=== PATIENT | female | born 1945 | race Caucasian/White ===

== ENCOUNTER 2016-10-04 21:23 | Emergency (ER) | payer MEDICARE, OTHER ==
[2016-10-04 21:40] VITALS: BP 193/89; PULSE 89; RESP 18; TEMP 98.1
[2016-10-04] MEDS ORDERED: HYDROmorphone 1 MG/ML 1 ML SYRINGE IM STA (22:01)
--- NOTE | 2016-10-04 22:07 | ED ---
General Adult HPI - General Chief complaint: Fall Stated complaint: fall-hip/knee pain Time Seen by Provider: 10/04/16 21:51 Source: patient, RN notes reviewed Mode of arrival: wheelchair Limitations: no limitations - History of Present Illness Initial comments: 70-year-old female presents in the emergency department with a chief complaint of out of her pain medication. Patient had a fall about a week ago she went to the emergency room she was worked up and it was negative for any doctors. Patient has chronic oxycodone for her chronic back pain however now she is out of it due to her fall so she is here for medication refill until she sees her doctor on Friday. Patient states the pain has just been constant in her left knee and hip which is chronic pain aspects for her. Patient states that like her normal pain but without her pain medication is hard to bear. Patient has been able to ambulate with her cane. Patient denies any other injuries in the fall and states that she is very been worked up for the fall and she simply needs pain medication. Patient states she is not currently having any other symptoms at this time.Patient denies any recent fever, chills, shortness of breath, chest pain, back pain, abdominal pain, nausea vomiting, numbness or tingling, dysuria or hematuria, constipation or diarrhea, headaches or visual changes, or any other current symptoms. - Related Data Home Medications Medication Instructions Recorded Confirmed Atorvastatin [Lipitor] 20 mg PO HS 07/03/14 10/04/16 Captopril 50 mg PO BID 07/03/14 10/04/16 Furosemide 80 mg PO BID@0600,1200 07/03/14 10/04/16 Levothyroxine Sodium [Synthroid] 125 mcg PO DAILY 11/27/15 10/04/16 Methocarbamol [Robaxin] 750 mg PO Q12H 02/17/16 10/04/16 Metoprolol Succinate [Toprol XL] 50 mg PO DAILY 02/17/16 10/04/16 Verapamil HCl [Verapamil ER] 240 mg PO DAILY 02/17/16 10/04/16 Ferrous Sulfate [Iron (65 MG 325 mg PO DAILY 03/04/16 10/04/16 Elemental)] Gabapentin 800 mg PO Q8H 03/12/16 10/04/16 Ranitidine HCl [Zantac] 150 mg PO DAILY 03/12/16 10/04/16 Previous Rx's Medication Instructions Recorded Docusate [Colace] 100 mg PO BID cap 02/21/16 Polyethylene Glycol 3350 [Miralax] 17 gm PO DAILY PRN #0 powd.pack 02/21/16 Potassium Chloride ER [K-Dur 20] 20 meq PO DAILY tab.er.prt 03/08/16 Hydrocodone/Acetaminophen [[place]arlboro 1 each PO Q6HR PRN #20 tab 10/04/16 5-325] Allergies Allergy/AdvReac Type Severity Reaction Status Date / Time No Known Allergies Allergy Verified 02/17/16 11:35 Review of Systems ROS Statement: Those systems with pertinent positive or pertinent negative responses have been documented in the HPI. ROS Other: All systems not noted in ROS Statement are negative. Past Medical History Past Medical History: Coronary Artery Disease (CAD), Heart Failure, Diabetes Mellitus, Deep Vein Thrombosis (DVT), Hyperlipidemia, Hypertension, Thyroid Disorder Additional Past Medical History / Comment(s): neuropathy,lupus, back pain, CURRENTLY AT [facility], BACK WOUNDWOUND VAC, USES WALKER WHEN UP, WT DOWN 10# IN A MONTH, LT EYE CATARACT History of Any Multi-Drug Resistant Organisms: VRE Date of last positivie culture/infection: 04/01/16 MDRO Source:: back Past Surgical History: Appendectomy, Back Surgery, Breast Surgery, Cholecystectomy, Coronary Bypass/CABG Additional Past Surgical History / Comment(s): thyroidectomy. triple bypass 2000 Past Anesthesia/Blood Transfusion Reactions: No Reported Reaction Additional Past Anesthesia/Blood Transfusion Reaction / Comment(s): CLAUSTERPHOBIA. HAD A BLOOD TRANSFUSION 1968-NO REACTION. Past Psychological History: Depression Additional Psychological History / Comment(s): DENIES ANY THOUGHTS OF WANTING TO HARM SELF,NO SUICIDAL IDEATIONS STATED MILDLY DEPRESSED D/T ALL MEDICAL PROBLEMS AND HOSPITALIZATIONS. Smoking Status: Former smoker Past Alcohol Use History: None Reported Additional Past Alcohol Use History / Comment(s): STARTED SMOKING AT AGE 16 QUIT 2000 WAS SMOKING 3 PPD BY TIME SHE QUIT Past Drug Use History: None Reported - Past Family History Father Family Medical History: Cancer Additional Family Medical History / Comment(s): prostate cancer Mother Family Medical History: Cancer, Congestive Heart Failure (CHF), Diabetes Mellitus, Hyperlipidemia, Hypertension, Osteoarthritis (OA) Additional Family Medical History / Comment(s): colon cancer Brother(s) Family Medical History: Coronary Artery Disease (CAD), Deep Vein Thrombosis (DVT ) Additional Family Medical History / Comment(s): back surgery Sister(s) Family Medical History: Hyperlipidemia General Exam Limitations: no limitations General appearance: alert, in no apparent distress Neck exam: Present: normal inspection. Absent: tenderness, meningismus, lymphadenopathy Respiratory exam: Present: normal lung sounds bilaterally. Absent: respiratory distress, wheezes, rales, rhonchi, stridor Cardiovascular Exam: Present: regular rate, normal rhythm, normal heart sounds. Absent: systolic murmur, diastolic murmur, rubs, gallop, clicks Extremities exam: Present: normal inspection, full ROM, tenderness (Diffusely over the left knee and hip), normal capillary refill. Absent: pedal edema, joint swelling, calf tenderness Back exam: Present: normal inspection Neurological exam: Present: alert, oriented X3 Psychiatric exam: Present: normal affect, normal mood Skin exam: Present: warm, dry, intact, normal color. Absent: rash Course Vital Signs 10/04/16 21:36 Temperature 98.1 F Pulse Rate 89 Respiratory 18 Rate Blood Pressure 193/89 O2 Sat by Pulse 100 Oximetry Medical Decision Making - Medical Decision Making 70-year-old female presents emergency department with a chief complaint of chronic pain and needing medication refill. This time we will give the patient a short prescription for narcotics. We discussed follow-up with her Dr. rolando burnett. She is suffering from her chronic pain and his liver isn't the fall that she was worked up for. Patient's admission is and all questions were answered. They will be discharged home. Disposition Clinical Impression: Chronic pain Disposition: HOME SELF-CARE Condition: Stable Instructions: Chronic Pain (ED) Additional Instructions: Please use medication as discussed. Please follow up with family doctor if symptoms have not improved over the next two days. Please return to the emergency room if your symptoms increase or worsen or for any other concerns. Prescriptions: Hydrocodone/Acetaminophen [Marlboro 5-325] 1 each PO Q6HR PRN #20 tab PRN Reason: Pain Referrals: Virgil Hdz MD [Primary Care Provider] - 1-2 days Time of Disposition: 22:07
== END 2016-10-04 22:20 | disposition home or self-care (01) ==
LOC: EC 21:23
DX: G89.29 Other chronic pain (principal); M25.552 Pain in left hip; M25.562 Pain in left knee; E07.9 Disorder of thyroid, unspecified; E78.5 Hyperlipidemia, unspecified; I11.0 Hypertensive heart disease with heart failure; I50.9 Heart failure, unspecified; Z87.891 Personal history of nicotine dependence; Z79.899 Other long term (current) drug therapy
CPT/HCPCS: 99283; 96372; J1170

== ENCOUNTER 2016-12-10 08:20 | Day surgery (SDC) | payer MEDICARE, OTHER ==
[2016-12-03 17:40] VITALS: BMI 31.1
[~2016-12-10 08:20] MED LIST: LACTATED RINGERS 1,000 ML IV SCH; LIDOCAINE 1% 20 ML VIAL (10MG/ML) FOR IV START INTRADERMA PRN
[2016-12-10] MEDS: PHENYLEPHRINE 10% OPHTH DROPS 5 ML BTL OP ONE ×3 (09:24→09:37)
[2016-12-10] MEDS: CYCLOPENTOLATE 1% OPHTH SOLN 2 ML BTL OP ONE ×3 (09:26→09:39)
[2016-12-10] MEDS: FLURBIPROFEN 0.03% OPHTH DROPS 2.5 ML BTL OP ONE ×3 (09:28→09:41)
[2016-12-10 10:05] LABS: Glucose,Whole Blood 55 mg/dL (75-99)
[2016-12-10 10:09] VITALS: TEMP 97.3
[2016-12-10] MEDS ORDERED: fentaNYL (PF) 50 MCG/ML 2 ML AMP ONE (10:15)
[2016-12-10] MEDS ORDERED: PROPOFOL 10 MG/ML 20 ML VIAL IV ONE (10:15)
[2016-12-10] MEDS ORDERED: EPINEPHrine (PF) 0.5 ML in BALANCED SALT IRRIG SOLN COMB2 500 ML IRRIGATION ONE (10:16)
[2016-12-10] MEDS ORDERED: HYALURONATE SODIUM INTRAOCULAR 1 EACH SYRINGE (10MG/ML) INTRAOCULA ONE ×2 (10:18)
[2016-12-10] MEDS ORDERED: BALANCED SALT IRRIG SOLN COMB2 15 ML IRRIG.SOLN IRRIGATION ONE (10:18)
[2016-12-10] MEDS ORDERED: TRYPAN BLUE 0.06% SYRINGE 0.5 ML SYRINGE INTRAOCULA ONE (10:34)
[2016-12-10] MEDS ORDERED: ACETYLCHOLINE CHLORIDE 10 MG/ML 2 ML KIT INTRAOCULA ONE (10:58)
[2016-12-10 11:16] VITALS: RESP 16
--- NOTE | 2016-12-10 11:16 | P.OP ---
Date of Procedure: 12/10/16 Preoperative Diagnosis: Postoperative Diagnosis: Procedure(s) Performed: PREOPERATIVE DIAGNOSIS: Hypermature Cataract, left eye. POSTOPERATIVE DIAGNOSIS: Hypermature Cataract, left eye. OPERATION: Phacoemulsification cataract, left eye. DESCRIPTION OF PROCEDURE: The patient was taken to the preoperative holding area. Intravenous Propofol was given so as to bring about adequate sedation. The following mixture was given for local anesthesia: 5 mL of 2% lidocaine, 5 mL of 0.75% Marcaine, and 1 mL of Wydase. Approximately 4 mL was injected in the retrobulbar space of the surgical eye. Additional 1 mL was then directed to the temporal area of the surgical eye. This was performed to allow adequate neurological block of the facial muscles. The patient was revived and then taken into the operative room. The patient was prepped and draped in the usual sterile manner for the operative eye. A lid speculum was put into position. The conjunctiva was resected back from the limbus in the 12 o'clock position. Bleeding was controlled with electrocautery. A #69 blade was then used and a half-thickness scleral incision approximately 1-mm posterior to the limbus was made on bare sclera. This was shelved in the clear cornea using a crescent knife. Next a 15-degree blade was used to make a stab incision at the 3 o' clock position at the corneolimbal interface. Using a blunt cannula, air was injected into the anterior chamber from the side port incision. Methylene Blue dye was dripped onto the anterior lens capsule in order to better visualize it. Keratome blade was then used and the superior wound was extended into the anterior chamber. Viscoelastic was injected into the anterior chamber and to maintain its form. Next, a cystotome was used and a continuous anterior capsulotomy was made without difficulty. Hydrodissection using a blunt cannula and BSS was performed. Phaco probe was then employed and a groove extending from 12 to 6 o'clock in the lens was created. A Jace wand was used through the stab incision so as to perform a divide and conquer technique. During the course of phaco, a peripheral radial tear developed and extended around to the posterior capsule. Vitreous never entered the anterior chamber, however. Next a syringe and blunt cannula was utilized and any residual cortex was removed from the eye. Again, viscoelastic was injected into the anterior chamber. A B and L three piece assembled posterior chamber lens implant was placed in the cartridge and injected into the anterior chamber without difficulty. The Sinskey hook was utilized to spin the lens into position and this was again performed without any difficulty. Using the irrigation/ aspiration probe, any residual viscoelastic was removed from the eye. Miochol was instilled and the pupil moved down into position without any peaking. Additional BSS was injected into the limbal stab incision and the anterior chamber re-inflated. The conjunctiva was reapproximated using electrocautery. One drop of 0.25% Timoptic was placed over the corneal along with TobraDex ophthalmic ointment. Two sterile patches and a Roper eye shield were taped into position. The patient was transported to the recovery room in stable condition. Implants: Pathology: none sent Condition: stable Disposition: same day Indications for Procedure: Operative Findings: Description of Procedure:
[2016-12-10 11:28] VITALS: BP 123/65; PULSE 73
[2016-12-10] MEDS ORDERED: IBUPROFEN 200 MG TAB PO ONE (11:32)
[2016-12-10 11:33] LABS: Glucose,Whole Blood 53 mg/dL (75-99)
[2016-12-10 11:40] LABS: Glucose,Whole Blood 63 mg/dL (75-99)
[2016-12-10] MEDS ORDERED: GENTAMICIN/PREDNISOL AC OPHTH OINT 3.5GM OPHTHALMIC ONE (23:00)
[2016-12-10] MEDS ORDERED: TIMOLOL 0.5% OPHTH SOLN (PF) 0.2 ML DROPERETTE OP ONE (23:00)
[2016-12-10] MEDS ORDERED: BUPIVACAINE (PF) 0.75% 5 ML, LIDOCAINE 4% (PF) 5 ML, HYALURONIDASE, HUMAN RECOMB 150 UNIT MISCELLANE ONE ×3 (23:00)
== END 2016-12-10 12:14 | disposition home or self-care (01) ==
LOC: OR 08:20
PROVIDERS: ATTEND Ophthalmology
DX: H25.22 Age-related cataract, morgagnian type, left eye (principal); E11.9 Type 2 diabetes mellitus without complications; Z79.4 Long term (current) use of insulin; I10 Essential (primary) hypertension; E07.9 Disorder of thyroid, unspecified; M19.90 Unspecified osteoarthritis, unspecified site; I25.10 Atherosclerotic heart disease of native coronary artery without angina pectoris; Z87.891 Personal history of nicotine dependence; N17.9 Acute kidney failure, unspecified; Z95.1 Presence of aortocoronary bypass graft; Z79.899 Other long term (current) drug therapy
CPT/HCPCS: 66984; V2632; V2788; J2001; J3470; J0171; J3010; J2704

== ENCOUNTER 2017-02-04 06:47 | Day surgery (SDC) | payer MEDICARE, OTHER ==
[2017-01-31 11:52] VITALS: BMI 30.5
[~2017-02-04 06:47] MED LIST changes: +DEXAMETHASONE SOD PHOSPHATE 10 MG/ML 1 ML VIAL IV ONE; +HYDROmorphone 1 MG/ML 1 ML SYRINGE IVP PRN; +MIDAZOLAM 2 MG/2 ML VIAL IV PRN; +ONDANSETRON 4 MG/2 ML VIAL IVP ONE; +SCOPOLAMINE 1.5MG/72HR PATCH TRANSDERM ONE
[2017-02-04 07:23] VITALS: RESP 18; TEMP 98
[2017-02-04] MEDS: PHENYLEPHRINE 10% OPHTH DROPS 5 ML BTL OP ONE ×3 (07:28→07:54)
[2017-02-04] MEDS: KETOROLAC 0.5% OPHTH DROPS 3 ML BTL OP ONE ×3 (07:31→07:57)
[2017-02-04] MEDS: CYCLOPENTOLATE 1% OPHTH SOLN 2 ML BTL OP ONE ×3 (07:34→07:59)
[2017-02-04 07:48] LABS: Glucose,Whole Blood 154 mg/dL (75-99)
[2017-02-04] MEDS ORDERED: PROPOFOL 10 MG/ML 20 ML VIAL IV ONE (08:19)
[2017-02-04] MEDS ORDERED: fentaNYL (PF) 50 MCG/ML 2 ML AMP ONE (08:19)
[2017-02-04] MEDS ORDERED: MIDAZOLAM 2 MG/2 ML VIAL ONE (08:19)
[2017-02-04] MEDS ORDERED: BALANCED SALT IRRIG SOLN COMB2 15 ML IRRIG.SOLN INTRAOCULA ONE (08:29)
[2017-02-04] MEDS ORDERED: HYALURONATE SODIUM INTRAOCULAR 1 EACH SYRINGE (10MG/ML) INTRAOCULA ONE (08:29)
[2017-02-04] MEDS ORDERED: EPINEPHrine (PF) 0.5 ML in BALANCED SALT IRRIG SOLN COMB2 500 ML IRRIGATION ONE (08:30)
--- NOTE | 2017-02-04 08:45 | P.OP ---
Date of Procedure: 02/04/17 Procedure(s) Performed: PREOPERATIVE DIAGNOSIS: Cataract, right eye eye. POSTOPERATIVE DIAGNOSIS: Cataract, right eye. OPERATION: Phacoemulsification cataract, right eye. DESCRIPTION OF PROCEDURE: The patient was taken to the preoperative holding area. Intravenous Propofol was given so as to bring about adequate sedation. The following mixture was given for local anesthesia: 5 mL of 2% lidocaine, 5 mL of 0.75% Marcaine, and 1 mL of Wydase. Approximately 4 mL was injected in the retrobulbar space of the surgical eye. Additional 1 mL was then directed to the temporal area of the surgical eye. This was performed to allow adequate neurological block of the facial muscles. The patient was revived and then taken into the operative room. The patient was prepped and draped in the usual sterile manner for the operative eye. A lid speculum was put into position. The conjunctiva was resected back from the limbus in the 12 o'clock position. Bleeding was controlled with electrocautery. A #69 blade was then used and a half-thickness scleral incision approximately 1-mm posterior to the limbus was made on bare sclera. This was shelved in the clear cornea using a crescent knife. Next a 15-degree blade was used to make a stab incision at the 3 o' clock position at the corneolimbal interface. Keratome blade was then used and the superior wound was extended into the anterior chamber. Viscoelastic was injected into the anterior chamber and to maintain its form. Next, a cystotome was used and a continuous anterior capsulotomy was made without difficulty. Hydrodissection using a blunt cannula and BSS was performed. Phaco probe was then employed and a groove extending from 12 to 6 o'clock in the lens was created. A Jace wand was used through the stab incision so as to perform a divide and conquer technique. Next an irrigation aspiration probe was utilized and any residual cortex was removed from the eye. Again, viscoelastic was injected into the anterior chamber. An ISHAN ZCBOO posterior chamber lens implant was placed in the cartridge and injected into the anterior chamber without difficulty. The Sinskey hook was utilized to spin the lens into position and this was again performed without any difficulty. The irrigation and aspiration probe was again employed and any residual viscoelastic was removed from the eye. Then BSS was injected into the limbal stab incision and the anterior chamber re-inflated. The conjunctiva was reapproximated using electrocautery. One drop of 0.25% Timoptic was placed over the corneal along with TobraDex ophthalmic ointment. Two sterile patches and a Roper eye shield were taped into position. The patient was transported to the recovery room in stable condition. Pathology: none sent Condition: stable Disposition: same day
[2017-02-04 09:06] VITALS: BP 113/58; PULSE 92
[2017-02-04 09:07] LABS: Glucose,Whole Blood 138 mg/dL (75-99)
[2017-02-04] MEDS ORDERED: GENTAMICIN/PREDNISOL AC OPHTH OINT 3.5GM OPHTHALMIC ONE (23:00)
[2017-02-04] MEDS ORDERED: BUPIVACAINE (PF) 0.75% 5 ML, LIDOCAINE 4% (PF) 5 ML, HYALURONIDASE, HUMAN RECOMB 150 UNIT MISCELLANE ONE ×3 (23:00)
[2017-02-04] MEDS ORDERED: TIMOLOL 0.5% OPHTH SOLN (PF) 0.2 ML DROPERETTE OP ONE (23:00)
== END 2017-02-04 09:23 | disposition home or self-care (01) ==
LOC: OR 06:47
PROVIDERS: ATTEND Ophthalmology
DX: H26.9 Unspecified cataract (principal); E11.9 Type 2 diabetes mellitus without complications; I25.10 Atherosclerotic heart disease of native coronary artery without angina pectoris; I11.0 Hypertensive heart disease with heart failure; I50.9 Heart failure, unspecified; E07.9 Disorder of thyroid, unspecified; E78.5 Hyperlipidemia, unspecified; Z95.1 Presence of aortocoronary bypass graft; Z79.4 Long term (current) use of insulin; Z79.899 Other long term (current) drug therapy; Z87.891 Personal history of nicotine dependence
CPT/HCPCS: 84132; 66984; C1780; J2001; J2250; J3470; J0171; J3010; J2704

== ENCOUNTER 2017-02-18 19:01 | Emergency (ER) | payer MEDICARE, OTHER ==
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
[2017-02-18 20:14] LABS: Anisocytosis Slight; Basophils % (A) 0 %; CH 29.5; CHCM 29.4; Eosinophils # (A) 0.1 k/uL (0-0.7); Eosinophils % (A) 1 %; HCT 32.3 % (34.0-46.0); HDW 2.88; HGB 9.7 gm/dL (11.4-16.0); Hypochromasia Marked; Luc # (Auto) 0.12; Luc % (Auto) 3; Lymphocytes # (A) 0.8 k/uL (1.0-4.8); Lymphocytes % (A) 22 %; MCH 30.4 pg (25.0-35.0); MCHC 30.2 g/dL (31.0-37.0); MCV 100.8 fL (80.0-100.0); Macrocytosis Slight; Mean Platelet Volume 8.3; Monocytes # (A) 0.3 k/uL (0-1.0); Monocytes % (A) 8 %; Neutrophils # (A) 2.3 k/uL (1.3-7.7); Neutrophils % (A) 65 %; RDW 17.1 % (11.5-15.5); WBC 3.6 k/uL (3.8-10.6); WBC (Perox) 3.55
[2017-02-18 20:16] LABS: INR 1.2 (<1.2); Partial Thromboplastin Time 25.5 sec (22.0-30.0); Prothrombin Time 11.8 sec (9.0-12.0)
[2017-02-18 20:20] LABS: Anion Gap 9 mmol/L; Blood Urea Nitrogen 16 mg/dL (7-17); Calcium 8.7 mg/dL (8.4-10.2); Carbon Dioxide 28 mmol/L (22-30); Chloride 105 mmol/L (98-107); Glucose 119 mg/dL (74-99); Non-African American GFR(MDRD) 55 (>60 ml/min/1.73 sqM); Potassium 4.2 mmol/L (3.5-5.1); Sodium 142 mmol/L (137-145)
[2017-02-18 21:24] VITALS: BP 158/67; PULSE 88; RESP 20; TEMP 97.2
--- NOTE | 2017-02-18 21:49 | US ---
EXAMINATION TYPE: US venous doppler duplex LE BI DATE OF EXAM: 02/18/2017 9:22 PM COMPARISON: Right lower extremity venous ultrasound March 04, 2016. Left lower extremity venous ult rasound January 20, 2015 CLINICAL HISTORY: swelling. SIDE PERFORMED: Bilateral TECHNIQUE: The lower extremity deep venous system is examined utilizing real time linear array sonog johanna with graded compression, doppler sonography and color-flow sonography. VESSELS IMAGED: External Iliac Vein (EIV) Common Femoral Vein Deep Femoral Vein Greater Saphenous Vein * Femoral Vein Popliteal Vein Small Saphenous Vein * Proximal Calf Veins (* superficial vessels) Right Leg: Negative for DVT Left Leg: Negative for DVT Grayscale, color doppler, spectral doppler imaging performed of the deep veins of the bilateral lower extremities. There is normal flow, compressibility, vascular waveforms. IMPRESSION: No ultrasound evidence for acute DVT in either lower extremity currently.
== END 2017-02-18 21:31 | disposition home or self-care (01) ==
LOC: EC 19:01
DX: L03.115 Cellulitis of right lower limb (principal); L03.116 Cellulitis of left lower limb; R60.0 Localized edema; I25.10 Atherosclerotic heart disease of native coronary artery without angina pectoris; E11.9 Type 2 diabetes mellitus without complications; E78.5 Hyperlipidemia, unspecified; E07.9 Disorder of thyroid, unspecified; I11.0 Hypertensive heart disease with heart failure; I50.9 Heart failure, unspecified; Z86.718 Personal history of other venous thrombosis and embolism; Z87.891 Personal history of nicotine dependence; Z79.4 Long term (current) use of insulin; Z79.891 Long term (current) use of opiate analgesic; Z79.899 Other long term (current) drug therapy
CPT/HCPCS: 36415; 80048; 85025; 85610; 85730; 93970; 99284

== ENCOUNTER 2018-01-20 18:22 | Emergency (ER) | payer MEDICARE, OTHER ==
[2018-01-20 19:13] LABS: Albumin 3.6 g/dL (3.5-5.0); Calcium 8.9 mg/dL (8.4-10.2); Potassium 4.4 mmol/L (3.5-5.1); Total Bilirubin 0.5 mg/dL (0.2-1.3); Total Protein 6.7 g/dL (6.3-8.2)
[2018-01-20 19:29] LABS: Anisocytosis Slight; HCT 27.9 % (34.0-46.0); HGB 9.2 gm/dL (11.4-16.0); Hypochromasia Slight; MCH 27.7 pg (25.0-35.0); MCHC 32.8 g/dL (31.0-37.0); MCV 84.6 fL (80.0-100.0); Mean Platelet Volume 7.3; Platelet Count 186 k/uL (150-450); WBC 3.7 k/uL (3.8-10.6)
[2018-01-20 20:09] VITALS: PULSE 60; RESP 18
[2018-01-20 20:09] LABS: Band Neutrophils % 1 %; Lymphocytes # (M) 0.96 k/uL (1.0-4.8); Monocytes # (M) 0.19 k/uL (0-1.0); Neutrophils % (M) 68 %; Nucleated Red Blood Cells 0 /100 WBC (0-0); Poikilocytosis (M) Present; Target Cells Present; Total Cells Counted 100
--- NOTE | 2018-01-20 20:20 | ED ---
Extremity Problem HPI - General Chief complaint: Extremity Problem,Nontraumatic Stated complaint: POSS CELLULITIS BOTH LEGS Time Seen by Provider: 01/20/18 19:24 Source: patient Mode of arrival: wheelchair Limitations: no limitations - History of Present Illness Initial comments: 72-year-old female patient presents to the emergency department today for evaluation of lower leg swelling and erythema. Patient states that she has had increasing pain and redness to the lower extremities for the last week. Patient states she has been chilled but has not had any fevers. Patient states she does have a history of cellulitis and does get it frequently to the lower legs. Patient states she has been taking her Percocet without much relief of her pain. Patient recently returned to [place] after being in [place]. Patient was discharged from a hospital in [place] one month ago after being admitted for cellulitis. Patient denies any new numbness or tingling to her lower extremities, states she does have neuropathy related to her diabetes. Patient denies any recent shortness breath, chest pain, palpitations, abdominal pain, nausea, vomiting, diarrhea, constipation, back pain, dizziness, weakness, hematuria, dysuria, urinary urgency, urinary frequency, headache, visual changes , or any other complaints. - Related Data Home Medications Medication Instructions Recorded Confirmed Levothyroxine Sodium [Synthroid] 125 mcg PO QAM 11/27/15 01/20/18 Insulin NPL/Insulin Lispro 5 unit SQ TID PRN 12/03/16 01/20/18 [humaLOG MIX 75-25 VIAL] Bumetanide [Bumex] 1 mg PO BID 01/20/18 01/20/18 Spironolactone [Aldactone] 25 mg PO DAILY 01/20/18 01/20/18 oxyCODONE-APAP 10-325MG [Percocet 1 tab PO Q6HR PRN 01/20/18 01/20/18 10-325 mg] Previous Rx's Medication Instructions Recorded Cephalexin [Keflex] 500 mg PO Q6H #40 cap 01/20/18 Allergies Allergy/AdvReac Type Severity Reaction Status Date / Time No Known Allergies Allergy Verified 01/20/18 19:46 Review of Systems ROS Statement: Those systems with pertinent positive or pertinent negative responses have been documented in the HPI. ROS Other: All systems not noted in ROS Statement are negative. Past Medical History Past Medical History: Coronary Artery Disease (CAD), Heart Failure, Diabetes Mellitus, Deep Vein Thrombosis (DVT), Hyperlipidemia, Hypertension, Renal Disease, Thyroid Disorder Additional Past Medical History / Comment(s): neuropathy,lupus, back pain, BACK WOUND-Healed, USES CANE , CATARACT RT EYES History of Any Multi-Drug Resistant Organisms: VRE Date of last positivie culture/infection: 04/01/16 MDRO Source:: back Past Surgical History: Appendectomy, Back Surgery, Breast Surgery, Cholecystectomy, Coronary Bypass/CABG, Pacemaker Additional Past Surgical History / Comment(s): thyroidectomy. triple bypass 2000 , CATARACT LT EYE 11/2016, LUE dialysis port Past Anesthesia/Blood Transfusion Reactions: No Reported Reaction Additional Past Anesthesia/Blood Transfusion Reaction / Comment(s): CLAUSTROPHOBIA. HAD A BLOOD TRANSFUSION 1968-NO REACTION. Past Psychological History: No Psychological Hx Reported Smoking Status: Former smoker Past Alcohol Use History: None Reported Past Drug Use History: None Reported - Past Family History Father Family Medical History: Cancer Additional Family Medical History / Comment(s): prostate cancer Mother Family Medical History: Cancer, Congestive Heart Failure (CHF), Diabetes Mellitus, Hyperlipidemia, Hypertension, Osteoarthritis (OA) Additional Family Medical History / Comment(s): colon cancer Brother(s) Family Medical History: Coronary Artery Disease (CAD), Deep Vein Thrombosis (DVT ) Additional Family Medical History / Comment(s): back surgery Sister(s) Family Medical History: Hyperlipidemia General Exam Limitations: no limitations General appearance: alert, in no apparent distress, other (This is a well- developed, obese adult female patient in no acute distress. Vital signs upon presentation are temperature 99.2F, pulse 70, respirations 20, blood pressure 134/49, pulse ox 97% on room air.) Eye exam: Present: normal appearance, PERRL, EOMI. Absent: scleral icterus, conjunctival injection, periorbital swelling ENT exam: Present: normal exam, normal oropharynx, mucous membranes moist Respiratory exam: Present: normal lung sounds bilaterally. Absent: respiratory distress, wheezes, rales, rhonchi, stridor Cardiovascular Exam: Present: regular rate, normal rhythm, normal heart sounds. Absent: systolic murmur, diastolic murmur, rubs, gallop, clicks Extremities exam: Present: full ROM, normal capillary refill, other (Bilateral lower leg swelling, nonpitting. There is some anterior erythema over the lower leg. Is not circumferential. Does not extend down to the feet. Skin is warm to touch.). Absent: normal inspection, tenderness, pedal edema, joint swelling , calf tenderness Neurological exam: Present: alert, oriented X3, CN II-XII intact Psychiatric exam: Present: normal affect, normal mood Skin exam: Present: warm, dry, intact, normal color. Absent: rash Course Vital Signs 01/20/18 01/20/18 01/20/18 18:32 20:05 21:44 Temperature 99.0 F 98.7 F Pulse Rate 70 60 60 Respiratory 20 18 18 Rate Blood Pressure 134/49 171/69 183/67 O2 Sat by Pulse 97 99 98 Oximetry Medical Decision Making - Medical Decision Making 72-year-old female patient presents the emergency department today for evaluation of lower extremity redness and swelling. Patient has had history of cellulitis and is concerned she may have it again. Physical examination did reveal bilateral lower leg nonpitting edema with dorsal erythema. Skin was warm to touch. Patient is neurovascularly intact. Did perform labs which were unremarkable. I did discuss findings and results with the patient. Patient does have history of DVT to the lower extremities, does take Coumadin and states that her recent INR was supratherapeutic so they had her cut her dose in half. I did add on PT/INR however patient refused to remain for results stating that her daughter had to get to work. I did discuss that if her level was low we would need to perform ultrasound rule out blood clot in the leg. Patient verbalizes understanding however still wanted to leave. She was given prescription of Keflex for cellulitis. She is instructed to follow-up with her primary care physician for recheck as soon as possible. Return parameters discussed in detail. She verbalizes understanding and agreed with this plan. - Lab Data Result diagrams: 01/20/18 18:50 01/20/18 18:50 Lab Results 01/20/18 01/20/18 01/20/18 Range/Units 18:50 18:50 20:30 WBC 3.7 L (3.8-10.6) k/uL RBC 3.30 L (3.80-5.40) m/uL Hgb 9.2 L (11.4-16.0) gm/dL Hct 27.9 L (34.0-46.0) % MCV 84.6 (80.0-100.0) fL MCH 27.7 (25.0-35.0) pg MCHC 32.8 (31.0-37.0) g/dL RDW 18.0 H (11.5-15.5) % Plt Count 186 (150-450) k/uL Neutrophils % (Manual) 68 % Band Neutrophils % 1 % Lymphocytes % (Manual) 26 % Monocytes % (Manual) 5 % Neutrophils # (Manual) 2.50 (1.3-7.7) k/uL Lymphocytes # (Manual) 0.96 L (1.0-4.8) k/uL Monocytes # (Manual) 0.19 (0-1.0) k/uL Nucleated RBCs 0 (0-0) /100 WBC Manual Slide Review Performed Hypochromasia Slight Poikilocytosis (manual Present Anisocytosis Slight Target Cells Present PT 11.2 (9.0-12.0) sec INR 1.2 H (<1.2) APTT 25.6 (22.0-30.0) sec Sodium 131 L (137-145) mmol/L Potassium 4.4 (3.5-5.1) mmol/L Chloride 98 (98-107) mmol/L Carbon Dioxide 22 (22-30) mmol/L Anion Gap 11 mmol/L BUN 27 H (7-17) mg/dL Creatinine 0.92 (0.52-1.04) mg/dL Est GFR (CKD-EPI)AfAm 71 (>60 ml/min/1.73 sqM) Est GFR (CKD-EPI)NonAf 62 (>60 ml/min/1.73 sqM) Glucose 150 H (74-99) mg/dL Calcium 8.9 (8.4-10.2) mg/dL Total Bilirubin 0.5 (0.2-1.3) mg/dL AST 30 (14-36) U/L ALT 27 (9-52) U/L Alkaline Phosphatase 78 (38-126) U/L Total Protein 6.7 (6.3-8.2) g/dL Albumin 3.6 (3.5-5.0) g/dL Disposition Clinical Impression: Cellulitis of lower extremity Disposition: HOME SELF-CARE Condition: Good Instructions: Cellulitis (ED) Additional Instructions: Complete and tabetic prescription in full. Follow-up with your primary care physician for recheck in 1-2 days. Return here immediately for any new, worsening, or concerning symptoms. Prescriptions: Cephalexin [Keflex] 500 mg PO Q6H #40 cap Is patient prescribed a controlled substance at d/c from ED?: No Referrals: Virgil Hdz MD [Primary Care Provider] - 1-2 days Time of Disposition: 21:35
[2018-01-20] MEDS ORDERED: MORPHINE SULFATE 4 MG/ML SYRINGE IM STA (20:52)
[2018-01-20] MEDS ORDERED: CEPHALEXIN 500MG STARTER PACK 4 CAP BTL PO STA (20:52)
[2018-01-20 21:45] VITALS: BP 183/67; TEMP 98.7
[2018-01-20 21:45] LABS: INR 1.2 (<1.2); Partial Thromboplastin Time 25.6 sec (22.0-30.0); Prothrombin Time 11.2 sec (9.0-12.0)
== END 2018-01-20 21:45 | disposition home or self-care (01) ==
LOC: EC 18:22
DX: L03.115 Cellulitis of right lower limb (principal); L03.116 Cellulitis of left lower limb; I25.10 Atherosclerotic heart disease of native coronary artery without angina pectoris; E11.40 Type 2 diabetes mellitus with diabetic neuropathy, unspecified; I11.0 Hypertensive heart disease with heart failure; I50.9 Heart failure, unspecified; Z79.4 Long term (current) use of insulin; Z79.899 Other long term (current) drug therapy; Z86.718 Personal history of other venous thrombosis and embolism; Z87.891 Personal history of nicotine dependence; Z95.1 Presence of aortocoronary bypass graft; Z95.0 Presence of cardiac pacemaker
CPT/HCPCS: 36415; 80053; 85025; 85610; 85730; 87040; 99283; 96372; J2270

== ENCOUNTER 2018-01-21 17:17 | Emergency (ER) | payer MEDICARE, OTHER ==
[2018-01-21 18:37] VITALS: BP 155/58; PULSE 60; TEMP 97.8
--- NOTE | 2018-01-21 19:27 | ED ---
Lower Extremity Injury HPI - General Chief Complaint: Extremity Injury, Lower Stated Complaint: poss blood clot Time Seen by Provider: 01/21/18 19:01 Source: patient Mode of arrival: wheelchair Limitations: no limitations - History of Present Illness Initial Comments: 72-year-old female patient presents to the emergency department today for evaluation of bilateral lower leg edema and erythema. Patient was seen and evaluated here yesterday and diagnosed with cellulitis however was called to return today due to a low INR level. Patient does have history of DVT and refused to wait for the INR level prior to leaving. Patient did travel back to [place] from [place] via car one month ago. Patient states that she has had increased redness and swelling to the legs over the last week. Patient denies any fevers or chills with this. She denies any numbness or tingling to the lower extremities. Patient has had cellulitis in the past and states symptoms are similar. She denies any chest pain, shortness of breath, or palpitations. Patient denies any recent rash, abdominal pain, nausea, vomiting, diarrhea, constipation, back pain, numbness, tingling, dizziness, weakness, hematuria, dysuria, urinary urgency, urinary frequency, headache, visual changes, or any other complaints. - Related Data Home Medications Medication Instructions Recorded Confirmed Levothyroxine Sodium [Synthroid] 125 mcg PO QAM 11/27/15 01/21/18 Insulin NPL/Insulin Lispro See Protocol SQ TID 12/03/16 01/21/18 [humaLOG MIX 75-25 VIAL] Bumetanide [Bumex] 1 mg PO BID 01/20/18 01/21/18 Spironolactone [Aldactone] 25 mg PO DAILY 01/20/18 01/21/18 oxyCODONE-APAP 10-325MG [Percocet 1 tab PO Q6HR PRN 01/20/18 01/21/18 10-325 mg] Insulin NPL/Insulin Lispro 5 unit SQ AC-TID 01/21/18 01/21/18 [humaLOG MIX 75-25 VIAL] Previous Rx's Medication Instructions Recorded Cephalexin [Keflex] 500 mg PO Q6H #40 cap 01/20/18 Allergies Allergy/AdvReac Type Severity Reaction Status Date / Time No Known Allergies Allergy Verified 01/20/18 19:46 Review of Systems ROS Statement: Those systems with pertinent positive or pertinent negative responses have been documented in the HPI. ROS Other: All systems not noted in ROS Statement are negative. Past Medical History Past Medical History: Coronary Artery Disease (CAD), Heart Failure, Diabetes Mellitus, Deep Vein Thrombosis (DVT), Hyperlipidemia, Hypertension, Renal Disease, Thyroid Disorder Additional Past Medical History / Comment(s): neuropathy,lupus, back pain, BACK WOUND-Healed, USES CANE , CATARACT RT EYES History of Any Multi-Drug Resistant Organisms: VRE Date of last positivie culture/infection: 04/01/16 MDRO Source:: back Past Surgical History: Appendectomy, Back Surgery, Breast Surgery, Cholecystectomy, Coronary Bypass/CABG, Pacemaker Additional Past Surgical History / Comment(s): thyroidectomy. triple bypass 2000 , CATARACT LT EYE 11/2016, LUE dialysis port Past Anesthesia/Blood Transfusion Reactions: No Reported Reaction Additional Past Anesthesia/Blood Transfusion Reaction / Comment(s): CLAUSTROPHOBIA. HAD A BLOOD TRANSFUSION 1968-NO REACTION. Past Psychological History: No Psychological Hx Reported Smoking Status: Former smoker Past Alcohol Use History: None Reported Past Drug Use History: None Reported - Past Family History Father Family Medical History: Cancer Additional Family Medical History / Comment(s): prostate cancer Mother Family Medical History: Cancer, Congestive Heart Failure (CHF), Diabetes Mellitus, Hyperlipidemia, Hypertension, Osteoarthritis (OA) Additional Family Medical History / Comment(s): colon cancer Brother(s) Family Medical History: Coronary Artery Disease (CAD), Deep Vein Thrombosis (DVT ) Additional Family Medical History / Comment(s): back surgery Sister(s) Family Medical History: Hyperlipidemia General Exam Limitations: no limitations General appearance: alert, in no apparent distress, other (This is a well- developed, well-nourished elderly female patient in no acute distress. Vital signs upon presentation are temperature 97.8, pulse 60, respirations 18, blood pressure 155/58, pulse ox 100% on room air.) Eye exam: Present: normal appearance, PERRL, EOMI. Absent: scleral icterus, conjunctival injection, periorbital swelling ENT exam: Present: normal exam, normal oropharynx, mucous membranes moist Respiratory exam: Present: normal lung sounds bilaterally. Absent: respiratory distress, wheezes, rales, rhonchi, stridor Cardiovascular Exam: Present: regular rate, normal rhythm, normal heart sounds. Absent: systolic murmur, diastolic murmur, rubs, gallop, clicks GI/Abdominal exam: Present: soft, normal bowel sounds. Absent: distended, tenderness, guarding, rebound, rigid Extremities exam: Present: full ROM, normal capillary refill, other (Patient has some lower leg edema, nonpitting. There is dorsal erythema noted. No blistering or weeping. Pedal and posttibial pulses are 2+ and equal bilaterally.). Absent: normal inspection, tenderness, pedal edema, joint swelling, calf tenderness Neurological exam: Present: alert, oriented X3, CN II-XII intact Psychiatric exam: Present: normal affect, normal mood Skin exam: Present: warm, dry, intact, normal color. Absent: rash Course Vital Signs 01/21/18 18:34 Temperature 97.8 F Pulse Rate 60 Respiratory 18 Rate Blood Pressure 155/58 O2 Sat by Pulse 100 Oximetry Medical Decision Making - Medical Decision Making 72-year-old female patient presented to the emergency department today for ultrasound to rule out DVT to her lower extremities. Physical examination revealed erythema to the dorsal aspect of the bilateral lower legs with some nonpitting edema. Ultrasound was obtained and showed negative for DVT. Patient is instructed to call her doctor and have them direct her Coumadin dosing. She is also instructed to have a follow-up appointment for recheck of her legs in 1-2 days. Return parameters discussed in detail. She verbalizes understanding and agree with this plan. - Radiology Data Radiology results: report reviewed Venous Doppler duplex of the bilateral lower trauma is was obtained. Report was reviewed in its entirety. Impression by Dr. Fitzgerald shows normal exam with no evidence of deep venous thrombosis of both legs. Disposition Clinical Impression: Cellulitis of lower extremity Disposition: HOME SELF-CARE Condition: Good Instructions: Cellulitis (ED) Additional Instructions: Call your doctor and inform him that your INR is 1.2. Complete antibiotic prescription in full. Return here immediately for any new, worsening, or concerning symptoms. Is patient prescribed a controlled substance at d/c from ED?: No Referrals: Virgil Hdz MD [Primary Care Provider] - 1-2 days Time of Disposition: 20:23
[2018-01-21] MEDS ORDERED: MORPHINE SULFATE 4 MG/ML SYRINGE IM STA (19:40)
--- NOTE | 2018-01-21 20:13 | US ---
EXAMINATION TYPE: US venous doppler duplex LE DATE OF EXAM: 01/21/2018 8:06 PM COMPARISON: NONE CLINICAL HISTORY: Pain. SIDE PERFORMED: TECHNIQUE: The lower extremity deep venous system is examined utilizing real time linear array sonog johanna with graded compression, doppler sonography and color-flow sonography. VESSELS IMAGED: External Iliac Vein (EIV) Common Femoral Vein Deep Femoral Vein Greater Saphenous Vein * Femoral Vein Popliteal Vein Small Saphenous Vein * Proximal Calf Veins (* superficial vessels) Right Leg: Left Leg: IMPRESSION: Normal exam. No evidence of deep venous thrombosis in both legs.
[2018-01-21 21:12] VITALS: RESP 16
== END 2018-01-21 21:12 | disposition home or self-care (01) ==
LOC: EC 17:17
DX: L03.116 Cellulitis of left lower limb (principal); L03.115 Cellulitis of right lower limb; I25.810 Atherosclerosis of coronary artery bypass graft(s) without angina pectoris; I11.0 Hypertensive heart disease with heart failure; I50.9 Heart failure, unspecified; E11.40 Type 2 diabetes mellitus with diabetic neuropathy, unspecified; Z79.4 Long term (current) use of insulin; Z79.899 Other long term (current) drug therapy; Z87.891 Personal history of nicotine dependence; Z86.718 Personal history of other venous thrombosis and embolism; Z95.1 Presence of aortocoronary bypass graft; Z95.0 Presence of cardiac pacemaker
CPT/HCPCS: 93970; 99283; 96372; J2270

== ENCOUNTER 2018-02-02 20:18 | Emergency (ER) | payer MEDICARE, OTHER ==
[2018-02-02] MEDS ORDERED: VANCOMYCIN 2,000 MG in SODIUM CHLORIDE 0.9% 500 ML IVPB STA (21:09)
--- NOTE | 2018-02-02 21:12 | ED ---
General Adult HPI - General Chief complaint: Extremity Problem,Nontraumatic Stated complaint: leg swelling/cellulitis & SOB Source: family Mode of arrival: wheelchair Limitations: no limitations - History of Present Illness Initial comments: Dictation was produced using [employer] dictation software. please excuse any grammatical, word or spelling errors. Chief Complaint: 72-year-old female past medical history of cellulitis , coronary artery disease, heart failure, hypertension, thyroid disease presents with bilateral lower extremity erythema and pain. History of Present Illness: Since today with 4 days of bilateral lower extremity erythema and pain. Patient states she's been diagnosed with cellulitis in the past. She states that her most recent cellulitis episode was while she was in [place] several years ago. She states that over the past 4 days it has been getting progressively worse. She states she's been antibiotics however it has not been helping. Denies any constitutional symptoms. Chart review shows that patient has a history of heart failure though patient denies it. She does have a history of dysrhythmia and pacemaker. Denies any constitutional symptoms. The ROS documented in this emergency department record has been reviewed and confirmed by me. Those systems with pertinent positive or negative responses have been documented in the HPI. All other systems are other negative and/or noncontributory. - Related Data Home Medications Medication Instructions Recorded Confirmed Levothyroxine Sodium [Synthroid] 125 mcg PO HS 11/27/15 02/02/18 Insulin NPL/Insulin Lispro See Protocol SQ TID 12/03/16 02/02/18 [humaLOG MIX 75-25 VIAL] Bumetanide [Bumex] 1 mg PO BID 01/20/18 02/02/18 Spironolactone [Aldactone] 25 mg PO DAILY@1200 01/20/18 02/02/18 Amoxic-Pot Clav 875-125Mg 1 tab PO BID 02/02/18 02/02/18 [Augmentin 875-125] Morphine Sulfate ER [Ms Contin] 30 mg PO HS 02/02/18 02/02/18 Warfarin [Coumadin] 5 mg PO DAILY 02/02/18 02/02/18 oxyCODONE HCL 10 mg PO QID 02/02/18 02/02/18 Previous Rx's Medication Instructions Recorded Clindamycin [Cleocin] 450 mg PO Q8H 10 Days #90 capsule 02/02/18 Allergies Allergy/AdvReac Type Severity Reaction Status Date / Time No Known Allergies Allergy Verified 02/02/18 21:30 Review of Systems ROS Statement: Those systems with pertinent positive or pertinent negative responses have been documented in the HPI. ROS Other: All systems not noted in ROS Statement are negative. Past Medical History Past Medical History: Coronary Artery Disease (CAD), Heart Failure, Diabetes Mellitus, Deep Vein Thrombosis (DVT), Hyperlipidemia, Hypertension, Renal Disease, Thyroid Disorder Additional Past Medical History / Comment(s): neuropathy,lupus, back pain, BACK WOUND-Healed, USES CANE , CATARACT RT EYES History of Any Multi-Drug Resistant Organisms: VRE Date of last positivie culture/infection: 04/01/16 MDRO Source:: back Past Surgical History: Appendectomy, Back Surgery, Breast Surgery, Cholecystectomy, Coronary Bypass/CABG, Pacemaker Additional Past Surgical History / Comment(s): thyroidectomy. triple bypass 2000 , CATARACT LT EYE 11/2016, LUE dialysis port Past Anesthesia/Blood Transfusion Reactions: No Reported Reaction Additional Past Anesthesia/Blood Transfusion Reaction / Comment(s): CLAUSTROPHOBIA. HAD A BLOOD TRANSFUSION 1968-NO REACTION. Past Psychological History: No Psychological Hx Reported Smoking Status: Former smoker Past Alcohol Use History: None Reported Past Drug Use History: None Reported - Past Family History Father Family Medical History: Cancer Additional Family Medical History / Comment(s): prostate cancer Mother Family Medical History: Cancer, Congestive Heart Failure (CHF), Diabetes Mellitus, Hyperlipidemia, Hypertension, Osteoarthritis (OA) Additional Family Medical History / Comment(s): colon cancer Brother(s) Family Medical History: Coronary Artery Disease (CAD), Deep Vein Thrombosis (DVT ) Additional Family Medical History / Comment(s): back surgery Sister(s) Family Medical History: Hyperlipidemia General Exam - General Exam Comments Initial Comments: PHYSICAL EXAM: General Impression: Alert and oriented x3, not in acute distress HEENT: Normocephalic atraumatic, extra-ocular movements intact, pupils equal and reactive to light bilaterally, mucous membranes moist. Cardiovascular: Heart regular rate and rhythm, S1&S2 audible, no murmurs, rubs or gallops Chest: Lungs clear to auscultation bilaterally, no rhonchi, no wheeze, no rales Abdomen: Bowel sounds present, abdomen soft, non-tender, non-distended, no organomegaly, morbidly obese Musculoskeletal: Pulses present and equal in all extremities, no peripheral edema Motor: Power 5/5 bilaterally, no focal deficits noted Neurological: CN II-XII grossly intact, no focal motor or sensory deficits noted Skin: Bilateral lower extremity edema, erythema and tenderness to palpation Psych: Normal affect and mood Limitations: no limitations Course Vital Signs 02/02/18 02/02/18 20:30 22:27 Temperature 98.5 F Pulse Rate 74 68 Respiratory 20 18 Rate Blood Pressure 149/51 151/57 O2 Sat by Pulse 99 99 Oximetry Medical Decision Making - Medical Decision Making ED course: 72-year-old female presents with bilateral lower extremities symptoms. Differential includes cellulitis versus severe lower extremity fluid retention vital signs upon arrival are within acceptable limits. Laboratory evaluation obtained. No leukocytosis however this leukopenia of 3.0. Hemoglobin 9.1 which is around baseline. No thrombocytosis. Patient account 181. Coag panel shows INR 1.7. Patient is on Coumadin. Metabolic panel is unremarkable. Patient has slight elevation of renal markers. Patient is hemodynamically stable. She's not showing any signs of respiratory distress. Patient's symptoms more likely secondary to dependent lower extremity edema versus cellulitis. It is reasonable to believe that patient's symptoms could be from congestive heart failure. She's not showing any respiratory distress. No findings of crackles on auscultation of the lungs. Patient denies any orthopnea. He does however have a brain atretic peptide of 1680. Discussed patient case in detail with her primary care physician Dr. Hdz. Plan was formulated with primary care physician and patient. Plan is to provide patient vancomycin. She'll be discharged with prescription for clindamycin. She does have arranged follow-up with her primary care physician tomorrow. Given that patient is reliable and has good follow-up I believe it's reasonable for patient to be discharged. There is no clinical suspicion that her symptoms represent infectious process. She is told to follow-up with her primary care physician tomorrow. Should she develop any acutely worsening symptoms prior to her point she is told to go to the emergency department. Patient is understandable and agreeable to this plan. EKG interpretation: Ventricular rate 68, atrial paced rhythm, MD interval 226, QS 110, QTc 444. No MD prolongation, no QTC prolongation, no ST or T-wave changes noted. . Overall, this EKG is unremarkable - Lab Data Result diagrams: 18 21:16 18 21:16 Lab Results 18 18 18 Range/Units 21:16 21:16 21:16 WBC 3.0 L (3.8-10.6) k/uL RBC 3.40 L (3.80-5.40) m/uL Hgb 9.1 L (11.4-16.0) gm/dL Hct 28.4 L (34.0-46.0) % MCV 83.6 (80.0-100.0) fL MCH 26.7 (25.0-35.0) pg MCHC 32.0 (31.0-37.0) g/dL RDW 17.3 H (11.5-15.5) % Plt Count 181 (150-450) k/uL Neutrophils % (Manual) 63 % Lymphocytes % (Manual) 23 % Monocytes % (Manual) 13 % Eosinophils % (Manual) 1 % Neutrophils # (Manual) 1.89 (1.3-7.7) k/uL Lymphocytes # (Manual) 0.69 L (1.0-4.8) k/uL Monocytes # (Manual) 0.39 (0-1.0) k/uL Eosinophils # (Manual) 0.03 (0-0.7) k/uL Nucleated RBCs 0 (0-0) /100 WBC Manual Slide Review Performed Large Platelets Present Polychromasia Present Hypochromasia Slight Anisocytosis Slight PT (9.0-12.0) sec INR (<1.2) Sodium 133 L (137-145) mmol/L Potassium 4.4 (3.5-5.1) mmol/L Chloride 102 (98-107) mmol/L Carbon Dioxide 20 L (22-30) mmol/L Anion Gap 11 mmol/L BUN 41 H (7-17) mg/dL Creatinine 1.16 H (0.52-1.04) mg/dL Est GFR (CKD-EPI)AfAm 54 (>60 ml/min/1.73 sqM) Est GFR (CKD-EPI)NonAf 47 (>60 ml/min/1.73 sqM) Glucose 193 H (74-99) mg/dL Calcium 8.9 (8.4-10.2) mg/dL Troponin I (0.000-0.034) ng/mL NT-Pro-B Natriuret Pep 1680 pg/mL 02/02/18 02/02/18 Range/Units 21:16 21:16 WBC (3.8-10.6) k/uL RBC (3.80-5.40) m/uL Hgb (11.4-16.0) gm/dL Hct (34.0-46.0) % MCV (80.0-100.0) fL MCH (25.0-35.0) pg MCHC (31.0-37.0) g/dL RDW (11.5-15.5) % Plt Count (150-450) k/uL Neutrophils % (Manual) % Lymphocytes % (Manual) % Monocytes % (Manual) % Eosinophils % (Manual) % Neutrophils # (Manual) (1.3-7.7) k/uL Lymphocytes # (Manual) (1.0-4.8) k/uL Monocytes # (Manual) (0-1.0) k/uL Eosinophils # (Manual) (0-0.7) k/uL Nucleated RBCs (0-0) /100 WBC Manual Slide Review Large Platelets Polychromasia Hypochromasia Anisocytosis PT 15.3 H (9.0-12.0) sec INR 1.7 H (<1.2) Sodium (137-145) mmol/L Potassium (3.5-5.1) mmol/L Chloride (98-107) mmol/L Carbon Dioxide (22-30) mmol/L Anion Gap mmol/L BUN (7-17) mg/dL Creatinine (0.52-1.04) mg/dL Est GFR (CKD-EPI)AfAm (>60 ml/min/1.73 sqM) Est GFR (CKD-EPI)NonAf (>60 ml/min/1.73 sqM) Glucose (74-99) mg/dL Calcium (8.4-10.2) mg/dL Troponin I 0.014 (0.000-0.034) ng/mL NT-Pro-B Natriuret Pep pg/mL Disposition Clinical Impression: Lower extremity pain Disposition: HOME SELF-CARE Condition: Good Instructions: Cellulitis (ED) Prescriptions: Clindamycin [Cleocin] 450 mg PO Q8H 10 Days #90 capsule Is patient prescribed a controlled substance at d/c from ED?: No Referrals: Virgil Hdz MD [Primary Care Provider] - 1-2 days Time of Disposition: 23:30
[2018-02-02 21:38] LABS: Calcium 8.9 mg/dL (8.4-10.2); Potassium 4.4 mmol/L (3.5-5.1)
[2018-02-02 21:43] LABS: Anisocytosis Slight; HCT 28.4 % (34.0-46.0); HGB 9.1 gm/dL (11.4-16.0); Hypochromasia Slight; INR 1.7 (<1.2); MCH 26.7 pg (25.0-35.0); MCV 83.6 fL (80.0-100.0); Mean Platelet Volume 7.8; Platelet Count 181 k/uL (150-450); Prothrombin Time 15.3 sec (9.0-12.0); RDW 17.3 % (11.5-15.5)
[2018-02-02 22:18] LABS: Eosinophils # (M) 0.03 k/uL (0-0.7); Large Platelets Present; Lymphocytes # (M) 0.69 k/uL (1.0-4.8); Monocytes # (M) 0.39 k/uL (0-1.0); Neutrophils # (M) 1.89 k/uL (1.3-7.7); Neutrophils % (M) 63 %; Nucleated Red Blood Cells 0 /100 WBC (0-0); Polychromasia Present; Total Cells Counted 100
[2018-02-02 22:28] VITALS: RESP 18
[2018-02-03 01:54] VITALS: BP 151/70; PULSE 61; TEMP 97.9
== END 2018-02-03 01:35 | disposition home or self-care (01) ==
LOC: EC 20:18
DX: M79.662 Pain in left lower leg (principal); M79.661 Pain in right lower leg; R60.0 Localized edema; L53.9 Erythematous condition, unspecified; R06.02 Shortness of breath; E11.40 Type 2 diabetes mellitus with diabetic neuropathy, unspecified; I11.0 Hypertensive heart disease with heart failure; I25.10 Atherosclerotic heart disease of native coronary artery without angina pectoris; I50.9 Heart failure, unspecified; Z87.891 Personal history of nicotine dependence; Z79.01 Long term (current) use of anticoagulants; Z79.4 Long term (current) use of insulin; Z79.899 Other long term (current) drug therapy; Z86.718 Personal history of other venous thrombosis and embolism; Z82.49 Family history of ischemic heart disease and other diseases of the circulatory system; Z79.891 Long term (current) use of opiate analgesic; Z95.0 Presence of cardiac pacemaker; Z95.1 Presence of aortocoronary bypass graft
CPT/HCPCS: 36415; 93005; 83880; 80048; 84484; 85025; 85610; 99285; 96365; 96366 ×2; J3370

== ENCOUNTER 2018-08-06 18:10 | Emergency (ER) | payer MEDICARE, OTHER ==
[2018-08-06 18:28] VITALS: TEMP 98.4
[2018-08-06] MEDS ORDERED: ACET/COD 300 MG/30 MG STARTER PACK 6 TAB BTL PO STA (18:44)
[2018-08-06] MEDS ORDERED: DIAZEPAM 5 MG/ML 2 ML INJ IM ONE (18:44)
[2018-08-06] MEDS ORDERED: HYDROmorphone 0.5 MG/0.5 ML SYRINGE IM STA (18:44)
[2018-08-06] MEDS ORDERED: CYCLOBENZAPRINE 10MG STARTER 3 TAB BTL PO STA (18:44)
--- NOTE | 2018-08-06 18:47 | ED ---
Back Pain HPI - General Chief Complaint: Back Pain/Injury Stated Complaint: leg and back pain following procedure Time Seen by Provider: 08/06/18 18:31 Source: patient Limitations: no limitations - History of Present Illness Initial Comments: 72-year-old female patient presents to the emergency department today for evaluation of increased low back pain and leg pain. Patient states that she has been having an increase in in her chronic low back pain over the last 3-4 days. Patient states she did see her bottom painter and they decided to do intrathecal steroid injection. Patient states that she had this procedure performed yesterday when she woke this morning the pain in her back and legs is increased. Patient states she has been having restless legs and is unable to hold him still. States she was informed that her symptoms would worsen today however her usual medications are not helping. States she did call the office and does have an appointment tomorrow however they instructed her to come to the emergency department for pain management the meantime. Patient denies any increased numbness or tingling to the lower extremities. Denies any lower extremity weakness. Denies saddle anesthesia or loss of bowel or bladder control. She denies any fevers or chills. Patient denies any recent rash, shortness breath, chest pain, abdominal pain, nausea, vomiting, diarrhea, constipation, dizziness, hematuria, dysuria, urinary urgency, urinary frequency, headache, visual changes, or any other complaints. - Related Data Home Medications Medication Instructions Recorded Confirmed Levothyroxine Sodium [Synthroid] 125 mcg PO HS 11/27/15 08/06/18 Insulin NPL/Insulin Lispro See Protocol SQ TID-W/MEALS 12/03/16 08/06/18 [humaLOG MIX 75-25 VIAL] Spironolactone [Aldactone] 12.5 mg PO DAILY 01/20/18 08/06/18 Gabapentin 600 mg PO TID 08/06/18 08/06/18 Isosorbide Mononitrate ER [Imdur] 30 mg PO DAILY 08/06/18 08/06/18 Allergies Allergy/AdvReac Type Severity Reaction Status Date / Time No Known Allergies Allergy Verified 08/06/18 19:06 Review of Systems ROS Statement: Those systems with pertinent positive or pertinent negative responses have been documented in the HPI. ROS Other: All systems not noted in ROS Statement are negative. Past Medical History Past Medical History: Coronary Artery Disease (CAD), Heart Failure, Diabetes Mellitus, Deep Vein Thrombosis (DVT), Hyperlipidemia, Hypertension, Renal Disease, Thyroid Disorder Additional Past Medical History / Comment(s): neuropathy,lupus, back pain, BACK WOUND-Healed, USES CANE , CATARACT RT EYES History of Any Multi-Drug Resistant Organisms: VRE Date of last positivie culture/infection: 04/01/16 MDRO Source:: back Past Surgical History: Appendectomy, Back Surgery, Breast Surgery, Cholecystectomy, Coronary Bypass/CABG, Pacemaker Additional Past Surgical History / Comment(s): thyroidectomy. triple bypass 2000, CATARACT LT EYE 11/2016, LUE dialysis port Past Anesthesia/Blood Transfusion Reactions: No Reported Reaction Additional Past Anesthesia/Blood Transfusion Reaction / Comment(s): CLAUSTROPHOBIA. HAD A BLOOD TRANSFUSION 1968-NO REACTION. Past Psychological History: No Psychological Hx Reported Smoking Status: Former smoker Past Alcohol Use History: None Reported Past Drug Use History: None Reported - Past Family History Father Family Medical History: Cancer Additional Family Medical History / Comment(s): prostate cancer Mother Family Medical History: Cancer, Congestive Heart Failure (CHF), Diabetes Mellitus, Hyperlipidemia, Hypertension, Osteoarthritis (OA) Additional Family Medical History / Comment(s): colon cancer Brother(s) Family Medical History: Coronary Artery Disease (CAD), Deep Vein Thrombosis (DV T) Additional Family Medical History / Comment(s): back surgery Sister(s) Family Medical History: Hyperlipidemia General Exam Limitations: no limitations General appearance: alert, in no apparent distress, other (Physical well- developed, well-nourished elderly female patient in no acute distress. Vital signs upon presentation are temperature 98.4F, pulse 81, respirations 20, blood pressure 202/66, pulse ox 98% on room air) Eye exam: Present: normal appearance, PERRL, EOMI. Absent: scleral icterus, conjunctival injection, periorbital swelling ENT exam: Present: normal exam, normal oropharynx, mucous membranes moist Respiratory exam: Present: normal lung sounds bilaterally. Absent: respiratory distress, wheezes, rales, rhonchi, stridor Cardiovascular Exam: Present: regular rate, normal rhythm, normal heart sounds. Absent: systolic murmur, diastolic murmur, rubs, gallop, clicks GI/Abdominal exam: Present: soft, normal bowel sounds. Absent: distended, tenderness, guarding, rebound, rigid Extremities exam: Present: normal inspection, full ROM, normal capillary refill, other (Skin to the lower extremities is pink, warm, dry. Cap refills less than 3 seconds. Post tibial pulses are 2+ and equal bilaterally.). Absent: tenderness, pedal edema, joint swelling, calf tenderness Back exam: Present: normal inspection. Absent: vertebral tenderness Neurological exam: Present: alert, oriented X3, CN II-XII intact, other (Strength of lower extremities is 4/5.) Psychiatric exam: Present: normal affect, normal mood Skin exam: Present: warm, dry, intact, normal color. Absent: rash Course Vital Signs 08/06/18 08/06/18 08/06/18 18:25 19:09 19:29 Temperature 98.4 F Pulse Rate 81 82 78 Respiratory 20 16 16 Rate Blood Pressure 202/66 197/70 164/62 O2 Sat by Pulse 98 98 96 Oximetry Medical Decision Making - Medical Decision Making 72-year-old female patient presents to the emergency department today for evaluation of increased low back and leg pain after having an intrathecal steroid injection performed yesterday. Physical examination is unremarkable. Patient is neurologically intact with no focal deficits. She has no concerning symptoms for cauda equina. This was an expected reaction to having intrathecal steroid injections which does have an appointment with her physician for recheck tomorrow. Return parameters were discussed in detail. She verbalizes understanding and agrees with this plan. Disposition Clinical Impression: Acute exacerbation of chronic low back pain Disposition: HOME SELF-CARE Condition: Good Instructions (If sedation given, give patient instructions): Acute Low Back Pain (ED), Chronic Back Pain (ED) Additional Instructions: Take medication as directed. Follow up with your physician tomorrow as you have planned. Return to the emergency department for any new, worsening, or concerning symptoms. Is patient prescribed a controlled substance at d/c from ED?: No Referrals: Virgil Hdz MD [Primary Care Provider] - 1-2 days Time of Disposition: 18:46
[2018-08-06 19:11] VITALS: RESP 16
[2018-08-06 19:30] VITALS: BP 164/62; PULSE 78
== END 2018-08-06 19:29 | disposition home or self-care (01) ==
LOC: EC 18:10
DX: G89.29 Other chronic pain (principal); M54.5 Low back pain; M79.606 Pain in leg, unspecified; I25.10 Atherosclerotic heart disease of native coronary artery without angina pectoris; I11.0 Hypertensive heart disease with heart failure; I50.9 Heart failure, unspecified; E11.40 Type 2 diabetes mellitus with diabetic neuropathy, unspecified; E07.9 Disorder of thyroid, unspecified; Z79.890 Hormone replacement therapy; Z79.4 Long term (current) use of insulin; Z79.899 Other long term (current) drug therapy; Z95.0 Presence of cardiac pacemaker; Z95.1 Presence of aortocoronary bypass graft; Z86.718 Personal history of other venous thrombosis and embolism; Z87.891 Personal history of nicotine dependence
CPT/HCPCS: 99283; 96372 ×2; J3360; J1170

== ENCOUNTER 2018-09-09 07:50 | Emergency (ER) | payer MEDICARE, OTHER ==
[2018-09-09 07:55] VITALS: TEMP 97.6
[2018-09-09] MEDS ORDERED: SODIUM CHLORIDE 0.9% 1,000 ML IV STA ×2 (08:10)
[2018-09-09] MEDS ORDERED: MORPHINE SULFATE 4 MG/ML SYRINGE IV STA (08:10)
[2018-09-09] MEDS ORDERED: ONDANSETRON 4 MG/2 ML VIAL IVP STA (08:10)
--- NOTE | 2018-09-09 08:13 | ED ---
Abdominal Pain HPI - General Chief Complaint: Abdominal Pain Stated Complaint: Poss kidney stone/back pain Time Seen by Provider: 09/09/18 08:02 Source: patient, RN notes reviewed, old records reviewed Mode of arrival: wheelchair Limitations: no limitations - History of Present Illness Initial Comments: Patient is a 72-year-old female who presents emergency Department today with complaints of onset of right-sided flank pain starting at 9 PM last night. Patient states that she's had a history of back problems and multiple surgeries. She also reports that history of kidney issues. She states she does not know the pain seems related to her kidney or muscles in her back. Patient denies any fall or trauma to cause her onset of pain. She was sitting watching TV when it occurred. Patient states that the pain will wrap around the right upper quad rant and is shooting stabbing pain. Patient states that she has no fever or chills. She reports normal stools. - Related Data Home Medications Medication Instructions Recorded Confirmed Levothyroxine Sodium [Synthroid] 125 mcg PO DAILY 11/27/15 09/09/18 Insulin NPL/Insulin Lispro See Protocol SQ AC-TID 12/03/16 09/09/18 [humaLOG MIX 75-25 VIAL] Gabapentin 600 mg PO TID 08/06/18 09/09/18 Isosorbide Mononitrate ER [Imdur] 30 mg PO DAILY 08/06/18 09/09/18 Aspirin EC [Ecotrin Low Dose] 81 mg PO DAILY 09/09/18 09/09/18 Bumetanide [BUMEX] 1 mg PO TID 09/09/18 09/09/18 Insulin NPL/Insulin Lispro 5 units SQ AC-TID 09/09/18 09/09/18 [humaLOG MIX 75-25 VIAL] Losartan [Cozaar] 50 mg PO DAILY 09/09/18 09/09/18 Previous Rx's Medication Instructions Recorded Cyclobenzaprine [Flexeril] 10 mg PO TID #20 tab 09/09/18 HYDROcodone/APAP 5-325MG [Runge 1 tab PO Q6HR PRN #10 tab 09/09/18 5-325] Nitrofurantoin Monohyd/M-Cryst 100 mg PO Q12HR #14 cap 09/09/18 [Macrobid] Allergies Allergy/AdvReac Type Severity Reaction Status Date / Time No Known Allergies Allergy Verified 09/09/18 08:36 Review of Systems ROS Statement: Those systems with pertinent positive or pertinent negative responses have been documented in the HPI. ROS Other: All systems not noted in ROS Statement are negative. Past Medical History Past Medical History: Coronary Artery Disease (CAD), Heart Failure, Diabetes Mellitus, Deep Vein Thrombosis (DVT), Hyperlipidemia, Hypertension, Renal Disease, Thyroid Disorder Additional Past Medical History / Comment(s): neuropathy,lupus, back pain, BACK WOUND-Healed, USES CANE , CATARACT RT EYES History of Any Multi-Drug Resistant Organisms: VRE Date of last positivie culture/infection: 04/01/16 MDRO Source:: back Past Surgical History: Appendectomy, Back Surgery, Breast Surgery, Cholecystectomy, Coronary Bypass/CABG, Pacemaker Additional Past Surgical History / Comment(s): thyroidectomy. triple bypass 2000, CATARACT LT EYE 11/2016, LUE dialysis port Past Anesthesia/Blood Transfusion Reactions: No Reported Reaction Additional Past Anesthesia/Blood Transfusion Reaction / Comment(s): CLAUSTROPHOBIA. HAD A BLOOD TRANSFUSION 1968-NO REACTION. Past Psychological History: No Psychological Hx Reported Smoking Status: Former smoker Past Alcohol Use History: None Reported Past Drug Use History: None Reported - Past Family History Father Family Medical History: Cancer Additional Family Medical History / Comment(s): prostate cancer Mother Family Medical History: Cancer, Congestive Heart Failure (CHF), Diabetes Mellitus, Hyperlipidemia, Hypertension, Osteoarthritis (OA) Additional Family Medical History / Comment(s): colon cancer Brother(s) Family Medical History: Coronary Artery Disease (CAD), Deep Vein Thrombosis (DVT) Additional Family Medical History / Comment(s): back surgery Sister(s) Family Medical History: Hyperlipidemia General Exam - General Exam Comments Initial Comments: 72-year-old female. Alert and oriented 3. Patient appears in no significant distress. Limitations: no limitations General appearance: alert, in no apparent distress Head exam: Present: atraumatic, normocephalic, normal inspection Eye exam: Present: normal appearance, PERRL, EOMI. Absent: scleral icterus, conjunctival injection, periorbital swelling ENT exam: Present: normal exam, mucous membranes moist Neck exam: Present: normal inspection. Absent: tenderness, meningismus, lymphadenopathy Respiratory exam: Present: normal lung sounds bilaterally. Absent: respiratory distress, wheezes, rales, rhonchi, stridor Cardiovascular Exam: Present: regular rate, normal rhythm, normal heart sounds. Absent: systolic murmur, diastolic murmur, rubs, gallop, clicks GI/Abdominal exam: Present: soft, tenderness (Right upper quadrant and right CVA tenderness.), normal bowel sounds. Absent: distended, guarding, rebound, rigid Extremities exam: Present: normal inspection, full ROM, normal capillary refill. Absent: tenderness, pedal edema, joint swelling, calf tenderness Back exam: Present: normal inspection, CVA tenderness (R) Neurological exam: Present: alert, oriented X3, CN II-XII intact Psychiatric exam: Present: normal affect, normal mood Skin exam: Present: warm, dry, intact, normal color. Absent: rash Course Vital Signs 09/09/18 09/09/18 07:51 10:28 Temperature 97.6 F Pulse Rate 83 61 Respiratory 20 17 Rate Blood Pressure 129/65 139/42 O2 Sat by Pulse 100 100 Oximetry Medical Decision Making - Lab Data Result diagrams: 09/09/18 08:05 09/09/18 08:05 Lab Results 09/09/18 09/09/18 09/09/18 Range/Units 08:05 08:05 08:05 WBC 5.0 (3.8-10.6) k/uL RBC 3.86 (3.80-5.40) m/uL Hgb 9.6 L (11.4-16.0) gm/dL Hct 31.9 L (34.0-46.0) % MCV 82.6 (80.0-100.0) fL MCH 24.9 L (25.0-35.0) pg MCHC 30.1 L (31.0-37.0) g/dL RDW 17.6 H (11.5-15.5) % Plt Count 263 (150-450) k/uL Neutrophils % (Manual) 74 % Lymphocytes % (Manual) 15 % Monocytes % (Manual) 9 % Eosinophils % (Manual) 2 % Neutrophils # (Manual) 3.70 (1.3-7.7) k/uL Lymphocytes # (Manual) 0.75 L (1.0-4.8) k/uL Monocytes # (Manual) 0.45 (0-1.0) k/uL Eosinophils # (Manual) 0.10 (0-0.7) k/uL Nucleated RBCs 0 (0-0) /100 WBC Manual Slide Review Performed Hypochromasia Marked Anisocytosis Slight PT 10.6 (9.0-12.0) sec INR 1.0 (<1.2) APTT 24.5 (22.0-30.0) sec Sodium 140 (137-145) mmol/L Potassium 4.0 (3.5-5.1) mmol/L Chloride 106 (98-107) mmol/L Carbon Dioxide 26 (22-30) mmol/L Anion Gap 8 mmol/L BUN 29 H (7-17) mg/dL Creatinine 0.84 (0.52-1.04) mg/dL Est GFR (CKD-EPI)AfAm 79 (>60 ml/min/1.73 sqM) Est GFR (CKD-EPI)NonAf 69 (>60 ml/min/1.73 sqM) Glucose 185 H (74-99) mg/dL Calcium 9.3 (8.4-10.2) mg/dL Total Bilirubin 0.5 (0.2-1.3) mg/dL AST 26 (14-36) U/L ALT 29 (9-52) U/L Alkaline Phosphatase 98 (38-126) U/L Total Protein 7.3 (6.3-8.2) g/dL Albumin 4.2 (3.5-5.0) g/dL Amylase 56 (30-110) U/L Lipase 309 H (23-300) U/L Urine Color Urine Appearance (Clear) Urine pH (5.0-8.0) Ur Specific [place] (1.001-1.035) Urine Protein (Negative) Urine Glucose (UA) (Negative) Urine Ketones (Negative) Urine Blood (Negative) Urine Nitrite (Negative) Urine Bilirubin (Negative) Urine Urobilinogen (<2.0) mg/dL Ur Leukocyte Esterase (Negative) Urine RBC (0-5) /hpf Urine WBC (0-5) /hpf Ur Squamous Epith Cells (0-4) /hpf Urine Bacteria (None) /hpf Hyaline Casts (0-2) /lpf Urine Mucus (None) /hpf 09/09/18 Range/Units 08:05 WBC (3.8-10.6) k/uL RBC (3.80-5.40) m/uL Hgb (11.4-16.0) gm/dL Hct (34.0-46.0) % MCV (80.0-100.0) fL MCH (25.0-35.0) pg MCHC (31.0-37.0) g/dL RDW (11.5-15.5) % Plt Count (150-450) k/uL Neutrophils % (Manual) % Lymphocytes % (Manual) % Monocytes % (Manual) % Eosinophils % (Manual) % Neutrophils # (Manual) (1.3-7.7) k/uL Lymphocytes # (Manual) (1.0-4.8) k/uL Monocytes # (Manual) (0-1.0) k/uL Eosinophils # (Manual) (0-0.7) k/uL Nucleated RBCs (0-0) /100 WBC Manual Slide Review Hypochromasia Anisocytosis PT (9.0-12.0) sec INR (<1.2) APTT (22.0-30.0) sec Sodium (137-145) mmol/L Potassium (3.5-5.1) mmol/L Chloride (98-107) mmol/L Carbon Dioxide (22-30) mmol/L Anion Gap mmol/L BUN (7-17) mg/dL Creatinine (0.52-1.04) mg/dL Est GFR (CKD-EPI)AfAm (>60 ml/min/1.73 sqM) Est GFR (CKD-EPI)NonAf (>60 ml/min/1.73 sqM) Glucose (74-99) mg/dL Calcium (8.4-10.2) mg/dL Total Bilirubin (0.2-1.3) mg/dL AST (14-36) U/L ALT (9-52) U/L Alkaline Phosphatase (38-126) U/L Total Protein (6.3-8.2) g/dL Albumin (3.5-5.0) g/dL Amylase (30-110) U/L Lipase (23-300) U/L Urine Color Yellow Urine Appearance Cloudy H (Clear) Urine pH 5.5 (5.0-8.0) Ur Specific [place] 1.014 (1.001-1.035) Urine Protein 2+ H (Negative) Urine Glucose (UA) Negative (Negative) Urine Ketones Negative (Negative) Urine Blood Trace H (Negative) Urine Nitrite Negative (Negative) Urine Bilirubin Negative (Negative) Urine Urobilinogen <2.0 (<2.0) mg/dL Ur Leukocyte Esterase Large H (Negative) Urine RBC 5 (0-5) /hpf Urine WBC 8 H (0-5) /hpf Ur Squamous Epith Cells 8 H (0-4) /hpf Urine Bacteria Rare H (None) /hpf Hyaline Casts 13 H (0-2) /lpf Urine Mucus Rare H (None) /hpf - Radiology Data Radiology results: report reviewed Degenerative changes and old L4-L5 postsurgical changes. Doses of mild degenerative changes within the mid thoracic spine. Disposition Clinical Impression: Back pain, UTI (urinary tract infection), Has run out of medications Disposition: HOME SELF-CARE Condition: Good Instructions (If sedation given, give patient instructions): Urinary Tract Infection in Women (ED), Muscle Spasm (ED) Additional Instructions: Follow-up with her primary care physician. Return to emergency department if any alarming signs or symptoms occur. Prescriptions: Cyclobenzaprine [Flexeril] 10 mg PO TID #20 tab Nitrofurantoin Monohyd/M-Cryst [Macrobid] 100 mg PO Q12HR #14 cap HYDROcodone/APAP 5-325MG [Runge 5-325] 1 tab PO Q6HR PRN #10 tab PRN Reason: Pain Is patient prescribed a controlled substance at d/c from ED?: Yes When asked, does pt state using other controlled substances?: No If prescribed controlled substance>3 days was MAPS reviewed?: Prescribed <3 Days If opioid is for acute pain is fill amount 7 days or less?: Yes If Rx opioid, was Start Talking consent form obtained?: Yes Referrals: Virgil Hdz MD [Primary Care Provider] - 1-2 days Time of Disposition: 11:35
[2018-09-09 09:00] LABS: Anisocytosis Slight; HCT 31.9 % (34.0-46.0); HGB 9.6 gm/dL (11.4-16.0); Hypochromasia Marked; MCH 24.9 pg (25.0-35.0); MCHC 30.1 g/dL (31.0-37.0); MCV 82.6 fL (80.0-100.0); Mean Platelet Volume 7.6; Platelet Count 263 k/uL (150-450); RBC 3.86 m/uL (3.80-5.40); RDW 17.6 % (11.5-15.5)
[2018-09-09 09:02] LABS: Partial Thromboplastin Time 24.5 sec (22.0-30.0); Prothrombin Time 10.6 sec (9.0-12.0)
[2018-09-09 09:04] LABS: Appearance,Urine Cloudy (Clear); Bacteria,Urine Rare /hpf; Bilirubin,Urine Negative (Negative); Blood,Urine Trace (Negative); Color,Urine Yellow; Glucose,Urine (UA) Negative (Negative); Hyaline Casts,Urine 13 /lpf (0-2); Ketones,Urine Negative (Negative); Leukocyte Esterase,Urine Large (Negative); Mucus,Urine Rare /hpf; Nitrite,Urine Negative (Negative); PH, Urine 5.5 (5.0-8.0); Protein,Urine 2+ (Negative); RBC,Urine 5 /hpf (0-5); Specific Gravity,Urine 1.014 (1.001-1.035); Squamous Epithelial Cell,Urine 8 /hpf (0-4); Urobilinogen,Urine <2.0 mg/dL (<2.0); WBC,Urine 8 /hpf (0-5)
[2018-09-09 09:11] LABS: Albumin 4.2 g/dL (3.5-5.0); Calcium 9.3 mg/dL (8.4-10.2); Total Bilirubin 0.5 mg/dL (0.2-1.3); Total Protein 7.3 g/dL (6.3-8.2)
[2018-09-09 09:21] LABS: Lymphocytes # (M) 0.75 k/uL (1.0-4.8); Monocytes # (M) 0.45 k/uL (0-1.0); Neutrophils % (M) 74 %; Nucleated Red Blood Cells 0 /100 WBC (0-0); Total Cells Counted 100
--- NOTE | 2018-09-09 09:45 | XR ---
EXAMINATION TYPE: XR thoracic spine 2V DATE OF EXAM: 09/09/2018 COMPARISON: None HISTORY: Back pain TECHNIQUE: Three-view thoracic spine FINDINGS: There are 12 thoracic type vertebral bodies. Pedicles are intact. There is scoliosis in the upper thoracic spine. Body heights appear preserved. Mild degenerative disc changes are within the m id thoracic levels. IMPRESSION: 1. Scoliosis with mild degenerative disc changes mid thoracic spine
--- NOTE | 2018-09-09 09:50 | XR ---
EXAMINATION TYPE: XR lumbar spine 2 or 3V DATE OF EXAM: 09/09/2018 COMPARISON: 05/13/2015 HISTORY: Back pain TECHNIQUE: Three-view lumbar spine FINDINGS: There 5 lumbar-type vertebral bodies. The pedicles are intact. Bone buttressing and laminec tomies been performed at L4-5. Sacroiliac joints are patent. There is narrowing of disc heights throughout the lumbar spine. Mild vacuum disc phenomenon is presen t L2-3 L3-4. Vertebral body alignment is preserved. Incidental note is made of vascular calcification within the aorta. Previous pedicle screws L4-S1 of been removed. IMPRESSION: 1. Degenerative disc changes throughout the lumbar spine. 2. Postsurgical changes L4-5 and L5-S1
[2018-09-09] MEDS ORDERED: MORPHINE SULFATE 4 MG/ML SYRINGE IVP PRN (10:21)
[2018-09-09 10:29] VITALS: BP 139/42; PULSE 61; RESP 17
== END 2018-09-09 12:04 | disposition home or self-care (01) ==
LOC: EC 07:50
DX: N39.0 Urinary tract infection, site not specified (principal); M54.9 Dorsalgia, unspecified; M47.816 Spondylosis without myelopathy or radiculopathy, lumbar region; M47.814 Spondylosis without myelopathy or radiculopathy, thoracic region; I25.10 Atherosclerotic heart disease of native coronary artery without angina pectoris; I11.0 Hypertensive heart disease with heart failure; I50.9 Heart failure, unspecified; E11.40 Type 2 diabetes mellitus with diabetic neuropathy, unspecified; E07.9 Disorder of thyroid, unspecified; Z87.891 Personal history of nicotine dependence; Z79.4 Long term (current) use of insulin; Z79.82 Long term (current) use of aspirin; Z79.890 Hormone replacement therapy; Z79.899 Other long term (current) drug therapy; Z98.890 Other specified postprocedural states; Z86.718 Personal history of other venous thrombosis and embolism; Z80.0 Family history of malignant neoplasm of digestive organs; Z82.61 Family history of arthritis; Z90.49 Acquired absence of other specified parts of digestive tract; Z95.0 Presence of cardiac pacemaker; Z95.1 Presence of aortocoronary bypass graft
CPT/HCPCS: 36415; 80053; 82150; 83690; 85025; 85610; 85730; 81001; 87086; 72070; 72100; 99284; 96374; 96375; 96376; 96361 ×4; J2270; J2405

== ENCOUNTER 2018-09-30 12:41 | Emergency (ER) | payer MEDICARE, OTHER ==
[2018-09-30 13:05] VITALS: TEMP 98.1
[2018-09-30 13:46] LABS: Albumin 4.2 g/dL (3.5-5.0); Anisocytosis Slight; Basophils % (A) 1 %; Calcium 9.1 mg/dL (8.4-10.2); Eosinophils # (A) 0.2 k/uL (0-0.7); Eosinophils % (A) 5 %; HCT 32.5 % (34.0-46.0); Hypochromasia Marked; Lymphocytes # (A) 0.7 k/uL (1.0-4.8); Lymphocytes % (A) 18 %; MCH 24.5 pg (25.0-35.0); MCHC 30.6 g/dL (31.0-37.0); MCV 80.2 fL (80.0-100.0); Mean Platelet Volume 8.6; Microcytosis Slight; Monocytes # (A) 0.2 k/uL (0-1.0); Monocytes % (A) 6 %; Neutrophils # (A) 2.6 k/uL (1.3-7.7); Neutrophils % (A) 67 %; Platelet Count 191 k/uL (150-450); Potassium 4.1 mmol/L (3.5-5.1); RBC 4.06 m/uL (3.80-5.40); RDW 16.5 % (11.5-15.5); Total Bilirubin 0.4 mg/dL (0.2-1.3); Total Protein 7.3 g/dL (6.3-8.2); WBC 3.9 k/uL (3.8-10.6)
--- NOTE | 2018-09-30 13:49 | XR ---
EXAMINATION TYPE: XR KUB DATE OF EXAM: 09/30/2018 1:43 PM CLINICAL HISTORY: Possible kidney stones. Recent abnormal x-ray TECHNIQUE: Two Upright KUB images of the abdomen are obtained. COMPARISON: Lumbar spine x-ray September 09, 2018.. FINDINGS: Scattered gas is seen in non-distended small bowel loops. Gas and fecal material is seen in non-distended colon. Because of body habitus and overlying fecal debris there is suboptimal evaluati on of kidney margin is to assess for calculi. Some small left-sided renal calculi are suspected based on lumbar spine x-ray comparison. There is levoconvex scoliotic curvature centered L3-L4 level. Ther e is multilevel spurring and disc space narrowing in the mid to lower lumbar spine. Postsurgical storey ges lumbosacral junction is redemonstrated. Epicardial pacer wires are suspected at the epigastric re gion extending into the lower thorax. Scattered pelvic phleboliths. IMPRESSION: Probable left-sided nephrolithiasis. Suboptimal evaluation of calculi. Advise CT follow- up.
[2018-09-30 14:31] LABS: Prothrombin Time 10.5 sec (9.0-12.0)
[2018-09-30] MEDS ORDERED: MORPHINE SULFATE 4 MG/ML SYRINGE IVP STA (14:33)
[2018-09-30 14:42] LABS: D-Dimer 1.4 mg/L FEU (<0.60)
[2018-09-30 15:12] VITALS: RESP 18
--- NOTE | 2018-09-30 15:30 | ED ---
Abdominal Pain HPI - General Chief Complaint: Abdominal Pain Stated Complaint: kidney stone issue Time Seen by Provider: 09/30/18 13:08 Source: patient Mode of arrival: ambulatory Limitations: no limitations - History of Present Illness Initial Comments: 72yo female with history of CHF, atrial fibrillation presenting today for cc of right flank pain. Patient states her back to the right side hurts she states this feels like kidney stones. She states she has not does not have a history she states it comes and goes in intensity and has been ongoing for the past 2-3 days. Patient has fever chills night sweats she denies dysuria urgency frequency. Patient states it does not wrap around towards her right side she denies any specific abdominal pain. She has any back injury or trauma. Pt denies any pain radiating towards the leg, numbness tingling or muscles weakness of legs, denies diarrhea, or constipation, she denies chest pain or SOB. Pt s tates her legs are always swollen, denies increase. pt denies shortness of breath, chest pain, or dyspnea upon exertion, cough or hemoptysis. Remaining ROS (-). Upon arrival pt ambulatory appearing well. Afebrile. - Related Data Home Medications Medication Instructions Recorded Confirmed Levothyroxine Sodium [Synthroid] 125 mcg PO DAILY 11/27/15 09/30/18 Insulin NPL/Insulin Lispro See Protocol SQ AC-TID PRN 12/03/16 09/30/18 [humaLOG MIX 75-25 VIAL] Gabapentin 600 mg PO TID 08/06/18 09/30/18 Isosorbide Mononitrate ER [Imdur] 30 mg PO DAILY 08/06/18 09/30/18 Aspirin EC [Ecotrin Low Dose] 81 mg PO DAILY 09/09/18 09/30/18 Bumetanide [BUMEX] 1 mg PO TID 09/09/18 09/30/18 Insulin NPL/Insulin Lispro 5 units SQ AC-TID 09/09/18 09/30/18 [humaLOG MIX 75-25 VIAL] Losartan [Cozaar] 50 mg PO DAILY 09/09/18 09/30/18 Cyclobenzaprine [Flexeril] 10 mg PO TID PRN 09/30/18 09/30/18 Previous Rx's Medication Instructions Recorded HYDROcodone/APAP 5-325MG [[place] 1 tab PO Q6HR PRN #10 tab 09/09/18 5-325] Nitrofurantoin Monohyd/M-Cryst 100 mg PO Q12HR #14 cap 09/09/18 [Macrobid] Allergies Allergy/AdvReac Type Severity Reaction Status Date / Time No Known Allergies Allergy Verified 09/30/18 13:19 Review of Systems ROS Statement: Those systems with pertinent positive or pertinent negative responses have been documented in the HPI. ROS Other: All systems not noted in ROS Statement are negative. Past Medical History Past Medical History: Coronary Artery Disease (CAD), Heart Failure, Diabetes Mellitus, Deep Vein Thrombosis (DVT), Hyperlipidemia, Hypertension, Renal Disease, Thyroid Disorder Additional Past Medical History / Comment(s): neuropathy,lupus, back pain, BACK WOUND-Healed, USES CANE , CATARACT RT EYES History of Any Multi-Drug Resistant Organisms: VRE Date of last positivie culture/infection: 04/01/16 MDRO Source:: back Past Surgical History: Appendectomy, Back Surgery, Breast Surgery, Cholecystectomy, Coronary Bypass/CABG, Pacemaker Additional Past Surgical History / Comment(s): thyroidectomy. triple bypass 2000, CATARACT LT EYE 11/2016, LUE dialysis port Past Anesthesia/Blood Transfusion Reactions: No Reported Reaction Additional Past Anesthesia/Blood Transfusion Reaction / Comment(s): CLAUSTROPHOBIA. HAD A BLOOD TRANSFUSION 1968-NO REACTION. Past Psychological History: No Psychological Hx Reported Smoking Status: Former smoker Past Alcohol Use History: None Reported Past Drug Use History: None Reported - Past Family History Father Family Medical History: Cancer Additional Family Medical History / Comment(s): prostate cancer Mother Family Medical History: Cancer, Congestive Heart Failure (CHF), Diabetes Zahra itus, Hyperlipidemia, Hypertension, Osteoarthritis (OA) Additional Family Medical History / Comment(s): colon cancer Brother(s) Family Medical History: Coronary Artery Disease (CAD), Deep Vein Thrombosis (DVT) Additional Family Medical History / Comment(s): back surgery Sister(s) Family Medical History: Hyperlipidemia General Exam - General Exam Comments Initial Comments: General: The patient is awake and alert, in no distress, and does not appear acutely ill. Eye: +3 mm pupils are equal, round and reactive to light, extra-ocular movements are intact. No nystagmus. There is normal conjunctiva bilaterally. No signs of icterus. Ears, nose, mouth and throat: There are moist mucous membranes and no oral lesions. Neck: The neck is supple, there is no tenderness or JVD. Cardiovascular: There is a regular rate and rhythm. No murmur, rub or gallop is appreciated. Respiratory: Lungs are clear to auscultation, respirations are non-labored, breath sounds are equal. No wheezes, stridor, rales, or rhonchi. Gastrointestinal: Soft, non-distended, non-tender abdomen without masses or organomegaly noted. There is no rebound or guarding present. No CVA tenderness. Bowel sounds are unremarkable. Musculoskeletal: Scars present midline on back, there is no midline tenderness pt has paravertebral and right flank pain to palpation, no rash. Normal ROM, no tenderness. Strength 5/5 of the LE b/l. Sensation intact of the LE b/l. Radial and DP pulses equal bilaterally 2+. Neurological: A&O x 3. CN II-XII intact, There are no obvious motor or sensory deficits. Coordination appears grossly intact. Speech is normal. Skin: Skin is warm and dry and no rashes or lesions are noted. Mild LE edema b/l. Psychiatric: Cooperative, appropriate mood & affect, normal judgment. Limitations: no limitations Course Vital Signs 09/30/18 09/30/18 09/30/18 13:03 15:00 15:10 Temperature 98.1 F Pulse Rate 89 Respiratory 20 18 Rate Blood Pressure 189/70 176/69 164/78 O2 Sat by Pulse 99 100 Oximetry 09/30/18 09/30/18 09/30/18 15:30 16:00 17:00 Temperature Pulse Rate 65 Respiratory 18 Rate Blood Pressure 164/78 175/54 140/65 O2 Sat by Pulse 100 98 Oximetry Medical Decision Making - Medical Decision Making 72-year-old female presenting for right flank pain. Patient is complaining appears nonspecific she states it comes and goes, he states she thought she had kidney stones. It appears to stretch toward thoracic cavity. Dimer elevated.CT abdomen and pelvis revealed marked dilation of the extrahepatic common bile duct which is increased from 2016. Patient has had a previous cholecystectomy. There is no evidence of pancreatic mass. There is a large degree of right lam- colonic fecal stasis. G angiogram revealed no evidence of acute pulmonary embolism. There is mild alveolar edema present bilaterally however patient refused further imaging studies the chest she does not complain of dyspnea on exertion or increased lower extremity edema. Patient denies cough or chest pain. I feel this does not correlate clinically of patient's current presentation for acute CHF exacerbation. There is a nonspecific around 1.0 cm breast lesion. Patient will monitor his primary care provider. Patient is requesting discharge she states her pain is better but she needs to leave immediately. Patient removed her own IV. Patient began to walk out and so his disposition patient with attending provider Dr. Mcconnell at this time he is comfortable with discharge after reviewing laboratory studies/imaging. Pt is to return for worsening or other concerning signs or symptoms. She verbalized understanding. Patient left ER appearing well perfused vital signs at discharge stating she needed to leave to take her grandson to work. - Lab Data Result diagrams: 09/30/18 13:20 09/30/18 13:20 Lab Results 09/30/18 09/30/18 09/30/18 Range/Units 13:20 13:20 13:20 WBC 3.9 (3.8-10.6) k/uL RBC 4.06 (3.80-5.40) m/uL Hgb 10.0 L (11.4-16.0) gm/dL Hct 32.5 L (34.0-46.0) % MCV 80.2 (80.0-100.0) fL MCH 24.5 L (25.0-35.0) pg MCHC 30.6 L (31.0-37.0) g/dL RDW 16.5 H (11.5-15.5) % Plt Count 191 (150-450) k/uL Neutrophils % 67 % Lymphocytes % 18 % Monocytes % 6 % Eosinophils % 5 % Basophils % 1 % Neutrophils # 2.6 (1.3-7.7) k/uL Lymphocytes # 0.7 L (1.0-4.8) k/uL Monocytes # 0.2 (0-1.0) k/uL Eosinophils # 0.2 (0-0.7) k/uL Basophils # 0.0 (0-0.2) k/uL Hypochromasia Marked Anisocytosis Slight Microcytosis Slight PT (9.0-12.0) sec INR (<1.2) APTT (22.0-30.0) sec D-Dimer (<0.60) mg/L FEU Sodium 139 (137-145) mmol/L Potassium 4.1 (3.5-5.1) mmol/L Chloride 106 (98-107) mmol/L Carbon Dioxide 23 (22-30) mmol/L Anion Gap 10 mmol/L BUN 22 H (7-17) mg/dL Creatinine 0.94 (0.52-1.04) mg/dL Est GFR (CKD-EPI)AfAm 69 (>60 ml/min/1.73 sqM) Est GFR (CKD-EPI)NonAf 60 (>60 ml/min/1.73 sqM) Glucose 165 H (74-99) mg/dL Plasma Lactic Acid Young 0.9 (0.7-2.0) mmol/L Calcium 9.1 (8.4-10.2) mg/dL Total Bilirubin 0.4 (0.2-1.3) mg/dL AST 24 (14-36) U/L ALT 19 (9-52) U/L Alkaline Phosphatase 104 (38-126) U/L Troponin I (0.000-0.034) ng/mL NT-Pro-B Natriuret Pep pg/mL Total Protein 7.3 (6.3-8.2) g/dL Albumin 4.2 (3.5-5.0) g/dL Amylase 44 (30-110) U/L Lipase 170 (23-300) U/L Urine Color Urine Appearance (Clear) Urine pH (5.0-8.0) Ur Specific [place] (1.001-1.035) Urine Protein (Negative) Urine Glucose (UA) (Negative) Urine Ketones (Negative) Urine Blood (Negative) Urine Nitrite (Negative) Urine Bilirubin (Negative) Urine Urobilinogen (<2.0) mg/dL Ur Leukocyte Esterase (Negative) 09/30/18 09/30/18 09/30/18 Range/Units 13:20 13:20 13:20 WBC (3.8-10.6) k/uL RBC (3.80-5.40) m/uL Hgb (11.4-16.0) gm/dL Hct (34.0-46.0) % MCV (80.0-100.0) fL MCH (25.0-35.0) pg MCHC (31.0-37.0) g/dL RDW (11.5-15.5) % Plt Count (150-450) k/uL Neutrophils % % Lymphocytes % % Monocytes % % Eosinophils % % Basophils % % Neutrophils # (1.3-7.7) k/uL Lymphocytes # (1.0-4.8) k/uL Monocytes # (0-1.0) k/uL Eosinophils # (0-0.7) k/uL Basophils # (0-0.2) k/uL Hypochromasia Anisocytosis Microcytosis PT 10.5 (9.0-12.0) sec INR 1.0 (<1.2) APTT 25.0 (22.0-30.0) sec D-Dimer 1.40 H (<0.60) mg/L FEU Sodium (137-145) mmol/L Potassium (3.5-5.1) mmol/L Chloride (98-107) mmol/L Carbon Dioxide (22-30) mmol/L Anion Gap mmol/L BUN (7-17) mg/dL Creatinine (0.52-1.04) mg/dL Est GFR (CKD-EPI)AfAm (>60 ml/min/1.73 sqM) Est GFR (CKD-EPI)NonAf (>60 ml/min/1.73 sqM) Glucose (74-99) mg/dL Plasma Lactic Acid Young (0.7-2.0) mmol/L Calcium (8.4-10.2) mg/dL Total Bilirubin (0.2-1.3) mg/dL AST (14-36) U/L ALT (9-52) U/L Alkaline Phosphatase (38-126) U/L Troponin I <0.012 (0.000-0.034) ng/mL NT-Pro-B Natriuret Pep 1690 pg/mL Total Protein (6.3-8.2) g/dL Albumin (3.5-5.0) g/dL Amylase (30-110) U/L Lipase (23-300) U/L Urine Color Urine Appearance (Clear) Urine pH (5.0-8.0) Ur Specific [place] (1.001-1.035) Urine Protein (Negative) Urine Glucose (UA) (Negative) Urine Ketones (Negative) Urine Blood (Negative) Urine Nitrite (Negative) Urine Bilirubin (Negative) Urine Urobilinogen (<2.0) mg/dL Ur Leukocyte Esterase (Negative) 09/30/18 Range/Units 16:51 WBC (3.8-10.6) k/uL RBC (3.80-5.40) m/uL Hgb (11.4-16.0) gm/dL Hct (34.0-46.0) % MCV (80.0-100.0) fL MCH (25.0-35.0) pg MCHC (31.0-37.0) g/dL RDW (11.5-15.5) % Plt Count (150-450) k/uL Neutrophils % % Lymphocytes % % Monocytes % % Eosinophils % % Basophils % % Neutrophils # (1.3-7.7) k/uL Lymphocytes # (1.0-4.8) k/uL Monocytes # (0-1.0) k/uL Eosinophils # (0-0.7) k/uL Basophils # (0-0.2) k/uL Hypochromasia Anisocytosis Microcytosis PT (9.0-12.0) sec INR (<1.2) APTT (22.0-30.0) sec D-Dimer (<0.60) mg/L FEU Sodium (137-145) mmol/L Potassium (3.5-5.1) mmol/L Chloride (98-107) mmol/L Carbon Dioxide (22-30) mmol/L Anion Gap mmol/L BUN (7-17) mg/dL Creatinine (0.52-1.04) mg/dL Est GFR (CKD-EPI)AfAm (>60 ml/min/1.73 sqM) Est GFR (CKD-EPI)NonAf (>60 ml/min/1.73 sqM) Glucose (74-99) mg/dL Plasma Lactic Acid Young (0.7-2.0) mmol/L Calcium (8.4-10.2) mg/dL Total Bilirubin (0.2-1.3) mg/dL AST (14-36) U/L ALT (9-52) U/L Alkaline Phosphatase (38-126) U/L Troponin I (0.000-0.034) ng/mL NT-Pro-B Natriuret Pep pg/mL Total Protein (6.3-8.2) g/dL Albumin (3.5-5.0) g/dL Amylase (30-110) U/L Lipase (23-300) U/L Urine Color Light Yellow Urine Appearance Clear (Clear) Urine pH 5.5 (5.0-8.0) Ur Specific [place] 1.016 (1.001-1.035) Urine Protein Trace H (Negative) Urine Glucose (UA) Negative (Negative) Urine Ketones Negative (Negative) Urine Blood Negative (Negative) Urine Nitrite Negative (Negative) Urine Bilirubin Negative (Negative) Urine Urobilinogen <2.0 (<2.0) mg/dL Ur Leukocyte Esterase Negative (Negative) - EKG Data EKG Comments: Ventricular rate 67 bpm, QRS duration 116ms, 446/471 ms this is atrial fibrillation ,with left posterior fascicular block. No ST elevation or depression. EKG interpreted by myself as well as attending provider Disposition Clinical Impression: Right flank pain Disposition: HOME SELF-CARE Condition: Good Instructions (If sedation given, give patient instructions): Abdominal Pain (ED), Flank Pain (ED) Additional Instructions: Please use medication as discussed. Please follow-up with family doctor in the next 2 days of symptoms have not improved. Please return to emergency room if the symptoms increase or worsen or for any other concerns. Is patient prescribed a controlled substance at d/c from ED?: No Referrals: Virgil Hdz MD [Primary Care Provider] - 1-2 days Time of Disposition: 17:36
--- NOTE | 2018-09-30 15:39 | CT ---
EXAMINATION TYPE: CT angio chest DATE OF EXAM: 09/30/2018 COMPARISON: NONE HISTORY: RUQ pain. Chest pain. CT DLP: 370.1 mGycm. Automated Exposure Control for Dose Reduction was Utilized. CONTRAST: CTA scan of the thorax is performed with IV Contrast, patient injected with 80 mL of Isovue 370, pulm onary embolism protocol. MIP Images are created on CT scanner and reviewed. FINDINGS: LUNGS: The lungs show diffuse groundglass opacity bilaterally. There is respiratory motion artifact d egradation making evaluation suboptimal particularly for subcentimeter nodules. No suspicious focal c onsolidation is present. No pleural effusion or pneumothorax is seen. Tracheal narrowing suggests exp iratory phase with posterior collapse. MEDIASTINUM: There is satisfactory enhancement of the pulmonary artery and its branches, there is no CT evidence for pulmonary embolism. There are no greater than 1 cm hilar or mediastinal lymph nodes. No significant pericardial effusion is seen. Enlarged pulmonary arteries identified, CT findings c onsistent with underlying pulmonary artery hypertension. There is cardiomegaly with dual lead pacemak er. Post CABG changes with mediastinal clips and sternal wires is present. OTHER: Please refer to same day CT abdomen report for complete details on the upper abdomen. S-shaped scoliosis is present. There is multilevel spurring and disc space narrowing in the thoracic spine. T here is 1.0 cm round right breast lesion axial image 48 near nipple suspect cysts. Nonemergent mammog jd and ultrasound follow-up is advised. No recent study seen at this institution in PACS. IMPRESSION: 1. No CT evidence for acute pulmonary embolism. 2. Correlate for CHF exacerbation as there is cardiomegaly with mild alveolar edema present bilateral ly. Underlying pulmonary artery hypertension is present. 3. Nonspecific ground 1.0 cm right breast lesion, nonemergent mammogram and ultrasound follow-up is a dvised based on clinical correlation.
--- NOTE | 2018-09-30 15:43 | CT ---
EXAMINATION TYPE: CT abdomen pelvis w con DATE OF EXAM: 09/30/2018 HISTORY: RUQ pain CT DLP: 1368.3mGycm Automated Exposure Control for Dose Reduction was Utilized. CONTRAST: CT scan of the abdomen and pelvis is performed with IV Contrast, patient injected with 80 mL of Isovu e 370. COMPARISON: 08/04/2015 FINDINGS: LUNG BASES: No significant abnormality is appreciated. LIVER/GB: There is marked extrahepatic biliary ductal dilatation and mild intrahepatic biliary ductal dilatation. The common bile duct measures up to 2.0 cm on image 24 and on coronal measures up to 2.0 cm as well. This appears dilated distally as well at the ampulla of Vater. Gallbladder surgically ab sent. PANCREAS: The pancreas is atrophic and the pancreatic duct appears within normal limits measuring 3 m m at the pancreatic head. No discrete pancreatic mass is seen. SPLEEN: There is a small splenule adjacent to the [place] spleen. [place] spleen is unremarkable. ADRENALS: No significant abnormality is seen. KIDNEYS: To small to accurately characterize right upper pole lateral cortical lesion is seen. Too sm all to accurately characterize left upper pole renal lesion is also seen on the coronal images. No hy dronephrosis of either kidney. Renal arterial calcifications are present. Renal osteal atherosclerosi s appears severe. BOWEL: Very small hiatal hernia is seen. Evaluation of the bowel somewhat limited given lack of oral contrast. No dilated large or small bowel bowel. Distention of the hepatic flexure up to 5.4 cm is se en by a large degree of retained right hemicolonic stool. Small bowel feces sign is also evident lance cating increased colonic transit time. UTERUS/ADNEXA: Uterus appears surgically absent. LYMPH NODES: No greater than 1cm abdominal or pelvic lymph nodes are appreciated. OSSEOUS STRUCTURES: Straightening of usual lumbar lordosis and multilevel moderate to severe degenera tive disc disease of the lumbar spine are seen.. OTHER: Subcutaneous edema is seen within the ventral abdomen predominating on the right. Correlate wi th any recent trauma or subcutaneous injections. Extensive atherosclerosis is seen of the abdominal a [place] and its branches. There is diastases recti and a very small periumbilical fat filled hernia. Glu teal injection granulomas are incidentally noted. IMPRESSION: 1. Marked dilatation of the extrahepatic common bile duct, increased in size from the prior of 2015. Considerations are for choledocholithiasis or periampullary mass. No discrete pancreatic mass is appr eciated. 2. Large degree right hemicolonic fecal stasis in this patient with right flank pain.
[2018-09-30] MEDS ORDERED: KETOROLAC 30 MG/ML 1 ML VIAL IVP STA (15:51)
[2018-09-30 16:05] VITALS: PULSE 65
--- NOTE | 2018-09-30 17:08 | US ---
EXAMINATION TYPE: US gallbladder DATE OF EXAM: 09/30/2018 COMPARISON: CT abdomen and pelvis earlier today. Older CT 2016. CLINICAL HISTORY: Pain. RUQ pain, GB removed x 1970's. CT showed dilated extrahepatic duct EXAM MEASUREMENTS: Liver Length: 15.8 cm CBD: 1.1 cm CHD: 1.4 cm Right Kidney: 10.9 x 4.5 x 4.2 cm Pancreas: Appears echogenic. Tail not well visualized. Main pancreatic duct appears dilated= 3.7 m m Liver: wnl Gallbladder: Surgically absent Evidence for sonographic Singh's sign: neg CBD: appears dilated for post cholecystectomy CHD: appears dilated for post cholecystectomy Right Kidney: wnl Patient has had mild to moderate central extrahepatic biliary dilatation with mild central intrahepat ic biliary dilatation slightly increased from 2016 study. There is gradual tapering towards the ampul la. Pancreatic duct measures upper limits of normal to minimally dilated. Reason uncertain. Consider ERCP follow-up based on clinical correlation. Ultrasound is limited due to body habitus. IMPRESSION: As above.
[2018-09-30 17:11] LABS: Appearance,Urine Clear (Clear); Bilirubin,Urine Negative (Negative); Blood,Urine Negative (Negative); Color,Urine Light Yellow; Glucose,Urine (UA) Negative (Negative); Ketones,Urine Negative (Negative); Leukocyte Esterase,Urine Negative (Negative); Nitrite,Urine Negative (Negative); PH, Urine 5.5 (5.0-8.0); Protein,Urine Trace (Negative); Specific Gravity,Urine 1.016 (1.001-1.035); Urobilinogen,Urine <2.0 mg/dL (<2.0)
[2018-09-30 17:49] VITALS: BP 140/65
== END 2018-09-30 18:00 | disposition home or self-care (01) ==
LOC: EC 12:41
DX: R10.9 Unspecified abdominal pain (principal); R60.9 Edema, unspecified; R93.89 Abnormal findings on diagnostic imaging of other specified body structures; R79.1 Abnormal coagulation profile; I25.10 Atherosclerotic heart disease of native coronary artery without angina pectoris; I50.9 Heart failure, unspecified; I11.0 Hypertensive heart disease with heart failure; E11.40 Type 2 diabetes mellitus with diabetic neuropathy, unspecified; E78.5 Hyperlipidemia, unspecified; E07.9 Disorder of thyroid, unspecified; Z86.718 Personal history of other venous thrombosis and embolism; Z53.29 Procedure and treatment not carried out because of patient's decision for other reasons; Z87.891 Personal history of nicotine dependence; Z79.4 Long term (current) use of insulin; Z79.82 Long term (current) use of aspirin; Z79.899 Other long term (current) drug therapy; Z79.890 Hormone replacement therapy; Z95.0 Presence of cardiac pacemaker; Z95.1 Presence of aortocoronary bypass graft; Z90.49 Acquired absence of other specified parts of digestive tract
CPT/HCPCS: 36415; 93005; 85379; 83880; 80053; 82150; 83605; 83690; 84484; 85025; 85610; 85730; 81003; 74018; 76705; 71275; 74177; 99285; 96374; 96375; J2270; J1885; Q9967

== ENCOUNTER 2018-10-02 11:25 | Inpatient (IN) | payer MEDICARE, OTHER ==
[2018-10-02] MEDS ORDERED: MORPHINE SULFATE 4 MG/ML SYRINGE IV STA (11:40)
[2018-10-02] MEDS ORDERED: SODIUM CHLORIDE 0.9% 1,000 ML IV STA (11:40)
[2018-10-02] MEDS ORDERED: ONDANSETRON 4 MG/2 ML VIAL IVP STA (11:40)
[2018-10-02] MEDS ORDERED: PANTOPRAZOLE 40 MG/10 ML VIAL IVP STA (11:40)
--- NOTE | 2018-10-02 12:09 | ED ---
Abdominal Pain HPI - General Chief Complaint: Abdominal Pain Stated Complaint: Abd Pain Time Seen by Provider: 10/02/18 11:40 Source: patient, RN notes reviewed, old records reviewed Mode of arrival: wheelchair Limitations: no limitations - History of Present Illness Initial Comments: This is a 72-year-old female the ER for evaluation. She is presenting today for evaluation regards to severe pain of bowel pain flank pain back pain. Patient's history of chronic pain. Patient was seen in ER 2 days ago for similar complaint. Patient states is related to kidney stones. No fevers she does have nausea and vomiting unable to take medications or no diarrhea. Patient does have history of intractable pain MD Complaint: abdominal pain, flank pain -: days(s) Location: RLQ, R flank, bilateral flank Radiation: RLQ, R flank, back Migration to: no migration Severity: moderate Severity scale (1-10): 5 Quality: aching Consistency: constant Improves With: nothing Worsens With: nothing Associated Symptoms: nausea, vomiting - Related Data Home Medications Medication Instructions Recorded Confirmed Levothyroxine Sodium [Synthroid] 125 mcg PO DAILY 11/27/15 10/02/18 Insulin NPL/Insulin Lispro See Protocol SQ AC-TID PRN 12/03/16 10/02/18 [humaLOG MIX 75-25 VIAL] Gabapentin 600 mg PO TID 08/06/18 10/02/18 Isosorbide Mononitrate ER [Imdur] 30 mg PO DAILY 08/06/18 10/02/18 Aspirin EC [Ecotrin Low Dose] 81 mg PO DAILY 09/09/18 10/02/18 Bumetanide [BUMEX] 1 mg PO TID 09/09/18 10/02/18 Insulin NPL/Insulin Lispro 5 units SQ AC-TID 09/09/18 10/02/18 [humaLOG MIX 75-25 VIAL] Losartan [Cozaar] 50 mg PO DAILY 09/09/18 10/02/18 Cyclobenzaprine [Flexeril] 10 mg PO TID PRN 09/30/18 10/02/18 Ciprofloxacin HCl [Cipro] 500 mg PO BID 10/02/18 10/02/18 Previous Rx's Medication Instructions Recorded HYDROcodone/APAP 5-325MG [[place] 1 tab PO Q6HR PRN #10 tab 09/09/18 5-325] Allergies Allergy/AdvReac Type Severity Reaction Status Date / Time No Known Allergies Allergy Verified 10/02/18 14:27 Review of Systems ROS Statement: Those systems with pertinent positive or pertinent negative responses have been documented in the HPI. ROS Other: All systems not noted in ROS Statement are negative. Past Medical History Past Medical History: Coronary Artery Disease (CAD), Heart Failure, Diabetes Mellitus, Deep Vein Thrombosis (DVT), Hyperlipidemia, Hypertension, Renal Disease, Thyroid Disorder Additional Past Medical History / Comment(s): neuropathy,lupus, back pain, BACK WOUND-Healed, USES CANE , CATARACT RT EYES History of Any Multi-Drug Resistant Organisms: VRE Date of last positivie culture/infection: 04/01/16 MDRO Source:: back Past Surgical History: Appendectomy, Back Surgery, Breast Surgery, Cholecystectomy, Coronary Bypass/CABG, Pacemaker Additional Past Surgical History / Comment(s): thyroidectomy. triple bypass 2000, CATARACT LT EYE 11/2016, LUE dialysis port Past Anesthesia/Blood Transfusion Reactions: No Reported Reaction Additional Past Anesthesia/Blood Transfusion Reaction / Comment(s): CLAUST ROPHOBIA. HAD A BLOOD TRANSFUSION 1968-NO REACTION. Past Psychological History: No Psychological Hx Reported Smoking Status: Former smoker Past Alcohol Use History: None Reported Past Drug Use History: None Reported - Past Family History Father Family Medical History: Cancer Additional Family Medical History / Comment(s): prostate cancer Mother Family Medical History: Cancer, Congestive Heart Failure (CHF), Diabetes Mellitus, Hyperlipidemia, Hypertension, Osteoarthritis (OA) Additional Family Medical History / Comment(s): colon cancer Brother(s) Family Medical History: Coronary Artery Disease (CAD), Deep Vein Thrombosis (DVT ) Additional Family Medical History / Comment(s): back surgery Sister(s) Family Medical History: Hyperlipidemia General Exam Limitations: no limitations General appearance: alert, in no apparent distress Head exam: Present: atraumatic, normocephalic, normal inspection Eye exam: Present: normal appearance, PERRL, EOMI. Absent: scleral icterus, conjunctival injection, periorbital swelling ENT exam: Present: normal exam, mucous membranes moist Neck exam: Present: normal inspection. Absent: tenderness, meningismus, lymphadenopathy Respiratory exam: Present: normal lung sounds bilaterally. Absent: respiratory distress, wheezes, rales, rhonchi, stridor Cardiovascular Exam: Present: regular rate, normal rhythm, normal heart sounds. Absent: systolic murmur, diastolic murmur, rubs, gallop, clicks GI/Abdominal exam: Present: soft, normal bowel sounds. Absent: distended, tenderness, guarding, rebound, rigid Extremities exam: Present: normal inspection, full ROM, normal capillary refill. Absent: tenderness, pedal edema, joint swelling, calf tenderness Back exam: Present: normal inspection Neurological exam: Present: alert, oriented X3, CN II-XII intact Psychiatric exam: Present: normal affect, normal mood Skin exam: Present: warm, dry, intact, normal color. Absent: rash Course Vital Signs 10/02/18 10/02/18 10/02/18 11:29 12:00 12:30 Temperature 97.4 F L Pulse Rate 85 77 67 Respiratory 18 20 18 Rate Blood Pressure 155/71 140/66 150/64 O2 Sat by Pulse 100 100 98 Oximetry 10/02/18 13:30 Temperature 98.4 F Pulse Rate 79 Respiratory 19 Rate Blood Pressure 124/97 O2 Sat by Pulse 97 Oximetry - Reevaluation(s) Reevaluation #1: Medical record is reviewed Patient has pain control Medical Decision Making - Medical Decision Making 42-year-old female the facility for evaluation of possible kidney stone pain back pain. Patient currently has pain control. Patient be admitted for continued pain evaluation - Lab Data Result diagrams: 10/02/18 11:58 10/02/18 11:58 Lab Results 10/02/18 10/02/18 10/02/18 Range/Units 11:58 11:58 11:58 WBC 3.7 L (3.8-10.6) k/uL RBC 3.97 (3.80-5.40) m/uL Hgb 9.8 L (11.4-16.0) gm/dL Hct 31.9 L (34.0-46.0) % MCV 80.4 (80.0-100.0) fL MCH 24.6 L (25.0-35.0) pg MCHC 30.6 L (31.0-37.0) g/dL RDW 16.6 H (11.5-15.5) % Plt Count 203 (150-450) k/uL Neutrophils % 60 % Lymphocytes % 21 % Monocytes % 8 % Eosinophils % 6 % Basophils % 1 % Neutrophils # 2.2 (1.3-7.7) k/uL Lymphocytes # 0.8 L (1.0-4.8) k/uL Monocytes # 0.3 (0-1.0) k/uL Eosinophils # 0.2 (0-0.7) k/uL Basophils # 0.0 (0-0.2) k/uL Hypochromasia Marked Anisocytosis Slight Microcytosis Slight Sodium 138 (137-145) mmol/L Potassium 4.2 (3.5-5.1) mmol/L Chloride 103 (98-107) mmol/L Carbon Dioxide 24 (22-30) mmol/L Anion Gap 11 mmol/L BUN 30 H (7-17) mg/dL Creatinine 1.23 H (0.52-1.04) mg/dL Est GFR (CKD-EPI)AfAm 50 (>60 ml/min/1.73 sqM) Est GFR (CKD-EPI)NonAf 44 (>60 ml/min/1.73 sqM) Glucose 229 H (74-99) mg/dL Plasma Lactic Acid Young 1.4 (0.7-2.0) mmol/L Calcium 8.9 (8.4-10.2) mg/dL Total Bilirubin 0.4 (0.2-1.3) mg/dL AST 23 (14-36) U/L ALT 14 (9-52) U/L Alkaline Phosphatase 105 (38-126) U/L Creatine Kinase 74 (30-135) U/L Total Protein 7.2 (6.3-8.2) g/dL Albumin 4.2 (3.5-5.0) g/dL Amylase 46 (30-110) U/L Lipase 191 (23-300) U/L Urine Color Urine Appearance (Clear) Urine pH (5.0-8.0) Ur Specific Industry (1.001-1.035) Urine Protein (Negative) Urine Glucose (UA) (Negative) Urine Ketones (Negative) Urine Blood (Negative) Urine Nitrite (Negative) Urine Bilirubin (Negative) Urine Urobilinogen (<2.0) mg/dL Ur Leukocyte Esterase (Negative) 10/02/18 Range/Units 12:15 WBC (3.8-10.6) k/uL RBC (3.80-5.40) m/uL Hgb (11.4-16.0) gm/dL Hct (34.0-46.0) % MCV (80.0-100.0) fL MCH (25.0-35.0) pg MCHC (31.0-37.0) g/dL RDW (11.5-15.5) % Plt Count (150-450) k/uL Neutrophils % % Lymphocytes % % Monocytes % % Eosinophils % % Basophils % % Neutrophils # (1.3-7.7) k/uL Lymphocytes # (1.0-4.8) k/uL Monocytes # (0-1.0) k/uL Eosinophils # (0-0.7) k/uL Basophils # (0-0.2) k/uL Hypochromasia Anisocytosis Microcytosis Sodium (137-145) mmol/L Potassium (3.5-5.1) mmol/L Chloride (98-107) mmol/L Carbon Dioxide (22-30) mmol/L Anion Gap mmol/L BUN (7-17) mg/dL Creatinine (0.52-1.04) mg/dL Est GFR (CKD-EPI)AfAm (>60 ml/min/1.73 sqM) Est GFR (CKD-EPI)NonAf (>60 ml/min/1.73 sqM) Glucose (74-99) mg/dL Plasma Lactic Acid Young (0.7-2.0) mmol/L Calcium (8.4-10.2) mg/dL Total Bilirubin (0.2-1.3) mg/dL AST (14-36) U/L ALT (9-52) U/L Alkaline Phosphatase (38-126) U/L Creatine Kinase (30-135) U/L Total Protein (6.3-8.2) g/dL Albumin (3.5-5.0) g/dL Amylase (30-110) U/L Lipase (23-300) U/L Urine Color Light Yellow Urine Appearance Clear (Clear) Urine pH 5.0 (5.0-8.0) Ur Specific Industry 1.005 (1.001-1.035) Urine Protein Negative (Negative) Urine Glucose (UA) Negative (Negative) Urine Ketones Negative (Negative) Urine Blood Negative (Negative) Urine Nitrite Negative (Negative) Urine Bilirubin Negative (Negative) Urine Urobilinogen <2.0 (<2.0) mg/dL Ur Leukocyte Esterase Negative (Negative) - EKG Data -: EKG Interpreted by Me (EKG shows sinus rhythm rate of 89, WA 180, QRS 112, QTc 5:15) - Radiology Data Radiology results: report reviewed (CT abd pelvis negative, shows enteritis), image reviewed Disposition Clinical Impression: Intractable pain, Back pain, Low back pain, Right flank pain Disposition: ADMITTED IP TO THIS [facility] Condition: Fair Is patient prescribed a controlled substance at d/c from ED?: No
[2018-10-02 12:27] LABS: Anisocytosis Slight; Basophils % (A) 1 %; Eosinophils # (A) 0.2 k/uL (0-0.7); Eosinophils % (A) 6 %; HCT 31.9 % (34.0-46.0); HGB 9.8 gm/dL (11.4-16.0); Hypochromasia Marked; Lymphocytes # (A) 0.8 k/uL (1.0-4.8); Lymphocytes % (A) 21 %; MCH 24.6 pg (25.0-35.0); MCHC 30.6 g/dL (31.0-37.0); MCV 80.4 fL (80.0-100.0); Mean Platelet Volume 8.1; Microcytosis Slight; Monocytes # (A) 0.3 k/uL (0-1.0); Monocytes % (A) 8 %; Neutrophils # (A) 2.2 k/uL (1.3-7.7); Neutrophils % (A) 60 %; Platelet Count 203 k/uL (150-450); RBC 3.97 m/uL (3.80-5.40); RDW 16.6 % (11.5-15.5); WBC 3.7 k/uL (3.8-10.6)
[2018-10-02 12:32] LABS: Albumin 4.2 g/dL (3.5-5.0); Calcium 8.9 mg/dL (8.4-10.2); Potassium 4.2 mmol/L (3.5-5.1); Total Bilirubin 0.4 mg/dL (0.2-1.3); Total Protein 7.2 g/dL (6.3-8.2)
[2018-10-02 12:39] LABS: Appearance,Urine Clear (Clear); Bilirubin,Urine Negative (Negative); Blood,Urine Negative (Negative); Color,Urine Light Yellow; Glucose,Urine (UA) Negative (Negative); Ketones,Urine Negative (Negative); Leukocyte Esterase,Urine Negative (Negative); Nitrite,Urine Negative (Negative); Protein,Urine Negative (Negative); Specific Gravity,Urine 1.005 (1.001-1.035); Urobilinogen,Urine <2.0 mg/dL (<2.0)
[2018-10-02] MEDS ORDERED: HYDROmorphone 1 MG/ML 1 ML SYRINGE IVP STA (12:42)
[2018-10-02] MEDS ORDERED: ONDANSETRON 4 MG/2 ML VIAL IVP PRN (12:42)
[2018-10-02] MEDS ORDERED: KETOROLAC 30 MG/ML 1 ML VIAL IVP STA (12:42)
[2018-10-02] MEDS ORDERED: SODIUM CHLORIDE 0.9% 1,000 ML IV ONE (12:42)
--- NOTE | 2018-10-02 13:37 | CT ---
EXAMINATION TYPE: CT abdomen pelvis wo con DATE OF EXAM: 10/02/2018 COMPARISON: Prior CT 09/30/2018 2 days prior HISTORY: Abd pain CT DLP: 918.8 mGycm Automated exposure control for dose reduction was used. TECHNIQUE: Helical acquisition of images from the lung bases through the pelvis. FINDINGS: Heart shows coronary artery calcification, intracardiac lead, cardiac enlargement as on moni or. Lack of intravenous contrast could compromise sensitivity. Injection granuloma noted of the glute al regions. LUNG BASES: No significant abnormality is appreciated. AORTA: No significant abnormality is appreciataed. LIVER/GB: No significant interval change is appreciated. Prominence of the intra and extrahepatic jessica iary ducts is a stable finding status post cholecystectomy. PANCREAS: No significant abnormality is seen. SPLEEN: No significant abnormality is seen. ADRENALS: No significant abnormality is seen. KIDNEYS: No significant abnormality is seen. REPRODUCTIVE ORGANS: Not seen and likely surgically absent. URINARY BLADDER: No significant abnormality is seen. BOWEL: No significant abnormality is seen. Colonic interposition noted anterior to the liver as on p rior exam. Retained fecal debris again noted in the right colon as described on previous exam. There are some thickened bowel loops noted in the upper abdomen FREE AIR: No Free Air is visible. ASCITES: None visible. PELVIC ADENOPATHY: None visualized. RETROPERITONEAL ADENOPATHY: No Retroperitoneal Adenopathy visible. OSSEOUS STRUCTURES: Degenerative disc changes in the visualized spine are again noted, there is assoc iated facet arthropathy. Postop changes are noted in the lower lumbar spine. IMPRESSION: CORRELATE FOR POSSIBLE ENTERITIS, SIMILAR FINDINGS TO PREVIOUS EXAM 2 DAYS PRIOR DESCRIBED. NONCON TRAST EXAM.
[2018-10-02 14:26] VITALS: BMI 35.4
[2018-10-02 15:06] LABS: Glucose,Whole Blood 182 mg/dL (75-99)
[2018-10-02] MEDS ORDERED: CYCLOBENZAPRINE 10 MG TAB PO PRN (16:37)
[2018-10-02] MEDS: HYDROmorphone 1 MG/ML 1 ML SYRINGE IVP PRN ×2 (18:02→22:07)
[2018-10-02 18:14] LABS: Glucose,Whole Blood 132 mg/dL (75-99)
--- NOTE | 2018-10-02 18:21 | P.CNOR ---
History of Present Illness - [facility] Consult date: 10/02/18 Consult reason: back pain History of present illness: Patient is a 72-year-old woman who presented to [facility] today with increasing right-sided back pain. Patient was recently in the hospital a few days ago with the same problem, she multiple imaging test at that time. Patient has a extensive history involving the lumbar spine, she's had over 5 different back surgeries. Her most recent surgery was in 2017, this was a hardware removal procedure for infection. This surgery was done at [facility]. Patient states that since last surgery she's had chronic pain involving the low back. Patient recently moved back from [place] about 4 months ago, she was down in about 2 years. While in [place], she was prescribed heavy-duty oral narcotics which significantly helped her pain. Since being back in [place], her primary care doctor and her been working to find a pain management doctor that would take over her care. She is also seen a few different spine surgeons, none of which have recommended surgery this time. Patient has multiple medical comorbidities, she is peripheral neuropathy from diabetes along extensive cardiac history. Patient was evaluated at bedside today, she is resting comfortably. She notes most discomfort in the central low back region over her previous scar and towards the right side. She states that the pain does radiate down the leg occasionally, this is not constant. She denies any loss of bowel or bladder sensation. She denies any recent trauma. She denies any fevers or chills. She has no other orthopedic complaints at this time. Review of Systems Constitutional: Reports as per HPI Past Medical History Past Medical History: Coronary Artery Disease (CAD), Heart Failure, Diabetes Mellitus, Deep Vein Thrombosis (DVT), Hyperlipidemia, Hypertension, Renal Disease, Thyroid Disorder Additional Past Medical History / Comment(s): neuropathy,lupus, back pain, BACK WOUND-Healed, USES CANE , CATARACT RT EYES History of Any Multi-Drug Resistant Organisms: VRE Year Discovered:: 04/01/16 MDRO Source:: back Past Surgical History: Appendectomy, Back Surgery, Breast Surgery, Cholecystectomy, Coronary Bypass/CABG, Pacemaker Additional Past Surgical History / Comment(s): thyroidectomy. triple bypass 2000, CATARACT LT EYE 11/2016, LUE dialysis port Past Anesthesia/Blood Transfusion Reactions: No Reported Reaction Additional Past Anesthesia/Blood Transfusion Reaction / Comm: CLAUSTROPHOBIA. HAD A BLOOD TRANSFUSION 1968-NO REACTION. Type of Cardiac Device: Permanent Pacemaker Device Placement Date:: january 2018 Past Psychological History: No Psychological Hx Reported Smoking Status: Former smoker Past Alcohol Use History: None Reported Past Drug Use History: None Reported - Past Family History Father Family Medical History: Cancer Additional Family Medical History / Comment(s): prostate cancer Mother Family Medical History: Cancer, Congestive Heart Failure (CHF), Diabetes Mellitus, Hyperlipidemia, Hypertension, Osteoarthritis (OA) Additional Family Medical History / Comment(s): colon cancer Brother(s) Family Medical History: Coronary Artery Disease (CAD), Deep Vein Thrombosis (DVT) Additional Family Medical History / Comment(s): back surgery Sister(s) Family Medical History: Hyperlipidemia Additional Family Medical History / Comment(s): thyroid cancer Medications and Allergies Home Medications Medication Instructions Recorded Confirmed Type Levothyroxine Sodium [Synthroid] 125 mcg PO DAILY 11/27/15 10/02/18 History Insulin NPL/Insulin Lispro See Protocol SQ AC-TID PRN 12/03/16 10/02/18 History [humaLOG MIX 75-25 VIAL] Gabapentin 600 mg PO TID 08/06/18 10/02/18 History Isosorbide Mononitrate ER [Imdur] 30 mg PO DAILY 08/06/18 10/02/18 History Aspirin EC [Ecotrin Low Dose] 81 mg PO DAILY 09/09/18 10/02/18 History Bumetanide [BUMEX] 1 mg PO TID 09/09/18 10/02/18 History HYDROcodone/APAP 5-325MG [[place] 1 tab PO Q6HR PRN #10 tab 09/09/18 10/02/18 Rx 5-325] Insulin NPL/Insulin Lispro 5 units SQ AC-TID 09/09/18 10/02/18 History [humaLOG MIX 75-25 VIAL] Losartan [Cozaar] 50 mg PO DAILY 09/09/18 10/02/18 History Cyclobenzaprine [Flexeril] 10 mg PO TID PRN 09/30/18 10/02/18 History Ciprofloxacin HCl [Cipro] 500 mg PO BID 10/02/18 10/02/18 History Allergies Allergy/AdvReac Type Severity Reaction Status Date / Time No Known Allergies Allergy Verified 10/02/18 14:27 Physical Examination Inspection of the low back does reveal a previous well-healed surgical scar, no significant areas of erythema, soft tissue swelling or fluctuance. Pain is noted palpation over the lumbar spine and paravertebral muscles. Pain is also noted in the right flank. Right lower extremity: Logroll maneuver the hip reproduces no significant discomfort. She is able to flex and extend the knee with minimal difficulty. No effusion present over the knee, does no tenderness with palpation. She is able to straight leg raise. Calf is soft, no tenderness with palpation. Skin is warm to touch, dorsalis pedis pulses 2+. Left lower extremity: Logroll is no pain, she can straight leg raising minimal difficulty. Flexion and extension are intact at the knee. No tenderness with palpation of the knee. Skin is warm to touch, dorsalis pedis pulses 2+. Calf is soft, no tenderness with palpation Results - Labs Labs: Abnormal Lab Results - Last 24 Hours (Table) 10/02/18 10/02/18 10/02/18 Range/Units 11:58 11:58 15:02 WBC 3.7 L (3.8-10.6) k/uL Hgb 9.8 L (11.4-16.0) gm/dL Hct 31.9 L (34.0-46.0) % MCH 24.6 L (25.0-35.0) pg MCHC 30.6 L (31.0-37.0) g/dL RDW 16.6 H (11.5-15.5) % Lymphocytes # 0.8 L (1.0-4.8) k/uL BUN 30 H (7-17) mg/dL Creatinine 1.23 H (0.52-1.04) mg/dL Glucose 229 H (74-99) mg/dL POC Glucose (mg/dL) 182 H (75-99) mg/dL H & H 10/02/18 Range/Units 11:58 Hgb 9.8 L (11.4-16.0) gm/dL Hct 31.9 L (34.0-46.0) % Result Diagrams: 10/02/18 11:58 10/02/18 11:58 Assessment and Plan Plan: Imaging: Previous lumbar spine x-rays were reviewed, no obvious fractures or dislocations present. Evidence of significant lumbar degenerative disc disease. Computed tomography scan that was done on 10/02/2018 of the pelvis/abdomen also revealed no acute fractures or dislocations. Assessment: 1. Chronic lumbar pain 2. Lumbar degenerative disc disease 3. History of multiple lumbar surgeries 4. Multiple medical comorbidities Plan: I was able to discuss the case, this including physical exam findings and imaging studies might any Dr. Cueva. At this time time we recommend pain management evaluation with follow-up with a experienced orthopedic spine surgeon for further evaluation. On general orthopedic surgical intervention Time with Patient: Less than 30
[2018-10-02] MEDS: INSULN ASP PRT/INSULIN ASPART 100 UNIT/ML 10 ML VIAL SQ SCH (18:23)
[2018-10-02] MEDS: INSULIN ASPART (NovoLOG) 100 UNIT/ML VIAL SQ SCH ×2 (18:23→20:55)
[2018-10-02 20:52] LABS: Glucose,Whole Blood 159 mg/dL (75-99)
[2018-10-02] MEDS: BUMETANIDE 1 MG TAB PO SCH (22:05)
[2018-10-02] MEDS: GABAPENTIN 300 MG CAP PO SCH (22:05)
[2018-10-03] MEDS: HYDROcodone/APAP 5-325MG 1 EACH TAB PO PRN ×3 (00:13→15:57)
[2018-10-03] MEDS: HYDROmorphone 1 MG/ML 1 ML SYRINGE IVP PRN ×5 (03:25→22:15)
[2018-10-03] MEDS: LEVOTHYROXINE 125 MCG TAB PO SCH (06:50)
[2018-10-03 06:58] LABS: Glucose,Whole Blood 113 mg/dL (75-99)
[2018-10-03] MEDS: INSULIN ASPART (NovoLOG) 100 UNIT/ML VIAL SQ SCH ×4 (07:10→22:01)
[2018-10-03] MEDS: LOSARTAN 50 MG TAB PO SCH (08:38)
[2018-10-03] MEDS: ISOSORBIDE MONONITRATE ER 30 MG TAB.ER.24H PO SCH (08:39)
[2018-10-03] MEDS: BUMETANIDE 1 MG TAB PO SCH ×3 (08:39→22:08)
[2018-10-03] MEDS: ENOXAPARIN 40 MG/0.4 ML SYRINGE SQ SCH (08:39)
[2018-10-03] MEDS: GABAPENTIN 300 MG CAP PO SCH ×3 (08:39→22:08)
[2018-10-03] MEDS: ASPIRIN 81 MG PO SCH (08:40)
[2018-10-03] MEDS: INSULN ASP PRT/INSULIN ASPART 100 UNIT/ML 10 ML VIAL SQ SCH ×3 (08:40→17:05)
--- NOTE | 2018-10-03 10:54 | P.GSCN ---
History of Present Illness Consult date: 10/03/18 Reason for Consult: Kidney stones History of present illness: The patient is a 72-year-old female admitted through the emergency room yesterday for evaluation of right flank and back pain. She was seen in the emergency room on 09/30 and at that time had a computed tomography scan of the abdomen and pelvis with IV contrast that described renal calculi that were too small to actually measure. There was no evidence of hydronephrosis. A gallb ladder ultrasound was also done however the patient says that she had previously undergone cholecystectomy. Computed tomography scan of the abdomen and pelvis without IV contrast on 10/02 showed no evidence of urolithiasis or hydronephrosis. Vascular calcifications were noted in both kidneys. The patient has no definite history of urolithiasis although she says she was suspected to have passed some "gravel" over 50 years ago. She has no gross hematuria and her urinalysis performed yesterday showed no evidence of hemoglobinuria. The pain she experiences sometimes radiates into the right leg. She says that her right flank pain is worse with movement and sometimes with lying on that side. She says she's undergone 5 previous back surgeries. Review of Systems - Constitutional Reports as per HPI - Gastrointestinal Reports as per HPI - Genitourinary Genitourinary: Reports as per HPI Past Medical History Past Medical History: Coronary Artery Disease (CAD), Heart Failure, Diabetes Mellitus, Deep Vein Thrombosis (DVT), Hyperlipidemia, Hypertension, Renal Disease, Thyroid Disorder Additional Past Medical History / Comment(s): neuropathy,lupus, back pain, BACK WOUND-Healed, USES CANE , CATARACT RT EYES History of Any Multi-Drug Resistant Organisms: VRE Year Discovered:: 04/01/16 MDRO Source:: back Past Surgical History: Appendectomy, Back Surgery, Breast Surgery, Cholecystectomy, Coronary Bypass/CABG, Pacemaker Additional Past Surgical History / Comment(s): thyroidectomy. triple bypass 2000, CATARACT LT EYE 11/2016, LUE dialysis port Past Anesthesia/Blood Transfusion Reactions: No Reported Reaction Additional Past Anesthesia/Blood Transfusion Reaction / Comm: CLAUSTROPHOBIA. HAD A BLOOD TRANSFUSION 1968-NO REACTION. Type of Cardiac Device: Permanent Pacemaker Device Placement Date:: january 2018 Past Psychological History: No Psychological Hx Reported Smoking Status: Former smoker Past Alcohol Use History: None Reported Past Drug Use History: None Reported - Past Family History Father Family Medical History: Cancer Additional Family Medical History / Comment(s): prostate cancer Mother Family Medical History: Cancer, Congestive Heart Failure (CHF), Diabetes Mellitus, Hyperlipidemia, Hypertension, Osteoarthritis (OA) Additional Family Medical History / Comment(s): colon cancer Brother(s) Family Medical History: Coronary Artery Disease (CAD), Deep Vein Thrombosis (DVT) Additional Family Medical History / Comment(s): back surgery Sister(s) Family Medical History: Hyperlipidemia Additional Family Medical History / Comment(s): thyroid cancer Medications and Allergies Home Medications Medication Instructions Recorded Confirmed Type Levothyroxine Sodium [Synthroid] 125 mcg PO DAILY 11/27/15 10/02/18 History Insulin NPL/Insulin Lispro See Protocol SQ AC-TID PRN 12/03/16 10/02/18 History [humaLOG MIX 75-25 VIAL] Gabapentin 600 mg PO TID 08/06/18 10/02/18 History Isosorbide Mononitrate ER [Imdur] 30 mg PO DAILY 08/06/18 10/02/18 History Aspirin EC [Ecotrin Low Dose] 81 mg PO DAILY 09/09/18 10/02/18 History Bumetanide [BUMEX] 1 mg PO TID 09/09/18 10/02/18 History HYDROcodone/APAP 5-325MG [[place] 1 tab PO Q6HR PRN #10 tab 09/09/18 10/02/18 Rx 5-325] Insulin NPL/Insulin Lispro 5 units SQ AC-TID 09/09/18 10/02/18 History [humaLOG MIX 75-25 VIAL] Losartan [Cozaar] 50 mg PO DAILY 09/09/18 10/02/18 History Cyclobenzaprine [Flexeril] 10 mg PO TID PRN 09/30/18 10/02/18 History Ciprofloxacin HCl [Cipro] 500 mg PO BID 10/02/18 10/02/18 History Allergies Allergy/AdvReac Type Severity Reaction Status Date / Time No Known Allergies Allergy Verified 10/02/18 14:27 Surgical - Exam Vital Signs Temp Pulse Resp BP Pulse Ox 97.4 F L 85 18 155/71 100 10/02/18 11:29 10/02/18 11:29 10/02/18 11:29 10/02/18 11:29 10/02/18 11:29 - General well developed, well nourished, no distress, obese - Respiratory normal respiratory effort - Abdomen Abdomen: soft, non tender, no organomegaly Results - Labs 10/02/18 11:58 10/02/18 11:58 Abnormal Lab Results - Last 24 Hours (Table) 10/02/18 10/02/18 10/02/18 Range/Units 11:58 11:58 15:02 WBC 3.7 L (3.8-10.6) k/uL Hgb 9.8 L (11.4-16.0) gm/dL Hct 31.9 L (34.0-46.0) % MCH 24.6 L (25.0-35.0) pg MCHC 30.6 L (31.0-37.0) g/dL RDW 16.6 H (11.5-15.5) % Lymphocytes # 0.8 L (1.0-4.8) k/uL BUN 30 H (7-17) mg/dL Creatinine 1.23 H (0.52-1.04) mg/dL Glucose 229 H (74-99) mg/dL POC Glucose (mg/dL) 182 H (75-99) mg/dL 10/02/18 10/02/18 10/03/18 Range/Units 18:11 20:41 06:53 WBC (3.8-10.6) k/uL Hgb (11.4-16.0) gm/dL Hct (34.0-46.0) % MCH (25.0-35.0) pg MCHC (31.0-37.0) g/dL RDW (11.5-15.5) % Lymphocytes # (1.0-4.8) k/uL BUN (7-17) mg/dL Creatinine (0.52-1.04) mg/dL Glucose (74-99) mg/dL POC Glucose (mg/dL) 132 H 159 H 113 H (75-99) mg/dL Microbiology - Last 24 Hours (Table) 10/02/18 12:15 Urine Culture - Preliminary Urine,Voided Diabetes panel 10/02/18 Range/Units 11:58 Sodium 138 (137-145) mmol/L Potassium 4.2 (3.5-5.1) mmol/L Chloride 103 (98-107) mmol/L Carbon Dioxide 24 (22-30) mmol/L BUN 30 H (7-17) mg/dL Creatinine 1.23 H (0.52-1.04) mg/dL Glucose 229 H (74-99) mg/dL Calcium 8.9 (8.4-10.2) mg/dL AST 23 (14-36) U/L ALT 14 (9-52) U/L Alkaline Phosphatase 105 (38-126) U/L Total Protein 7.2 (6.3-8.2) g/dL Albumin 4.2 (3.5-5.0) g/dL Calcium panel 10/02/18 Range/Units 11:58 Calcium 8.9 (8.4-10.2) mg/dL Albumin 4.2 (3.5-5.0) g/dL Pituitary panel 10/02/18 Range/Units 11:58 Sodium 138 (137-145) mmol/L Potassium 4.2 (3.5-5.1) mmol/L Chloride 103 (98-107) mmol/L Carbon Dioxide 24 (22-30) mmol/L BUN 30 H (7-17) mg/dL Creatinine 1.23 H (0.52-1.04) mg/dL Glucose 229 H (74-99) mg/dL Calcium 8.9 (8.4-10.2) mg/dL Adrenal panel 10/02/18 Range/Units 11:58 Sodium 138 (137-145) mmol/L Potassium 4.2 (3.5-5.1) mmol/L Chloride 103 (98-107) mmol/L Carbon Dioxide 24 (22-30) mmol/L BUN 30 H (7-17) mg/dL Creatinine 1.23 H (0.52-1.04) mg/dL Glucose 229 H (74-99) mg/dL Calcium 8.9 (8.4-10.2) mg/dL Total Bilirubin 0.4 (0.2-1.3) mg/dL AST 23 (14-36) U/L ALT 14 (9-52) U/L Alkaline Phosphatase 105 (38-126) U/L Total Protein 7.2 (6.3-8.2) g/dL Albumin 4.2 (3.5-5.0) g/dL Assessment and Plan Assessment: Right flank pain-most likely musculoskeletal in origin. I personally reviewed the patient's computed tomography scan from 09/30 and the other scan from 10/02. If she does have any renal calculi than they are less than 1 mm in size as they were not identified on the noncontrast computed tomography scan performed on 10/02. The patient's flank pain is not typical for renal colic and in view of her history is much more likely related to a musculoskeletal origin. Plan: No further urologic evaluation is necessary.
[2018-10-03 11:34] LABS: Glucose,Whole Blood 123 mg/dL (75-99)
[2018-10-03 16:39] LABS: Glucose,Whole Blood 72 mg/dL (75-99)
[2018-10-03] MEDS: SODIUM CHLORIDE 0.9% 1,000 ML IV SCH (21:00)
[2018-10-03 22:20] LABS: Glucose,Whole Blood 74 mg/dL (75-99)
[2018-10-03 23:22] LABS: Hemoglobin A1C 7.2 % (4.0-6.0)
[2018-10-04] MEDS: HYDROmorphone 1 MG/ML 1 ML SYRINGE IVP PRN ×2 (01:50→06:20)
[2018-10-04] MEDS: HYDROcodone/APAP 5-325MG 1 EACH TAB PO PRN ×2 (03:32→15:04)
[2018-10-04] MEDS: LEVOTHYROXINE 125 MCG TAB PO SCH (06:16)
[2018-10-04 07:31] LABS: Glucose,Whole Blood 136 mg/dL (75-99)
[2018-10-04] MEDS: INSULN ASP PRT/INSULIN ASPART 100 UNIT/ML 10 ML VIAL SQ SCH ×3 (08:08→17:28)
[2018-10-04] MEDS: ASPIRIN 81 MG PO SCH (08:08)
[2018-10-04] MEDS: INSULIN ASPART (NovoLOG) 100 UNIT/ML VIAL SQ SCH ×4 (08:08→20:26)
[2018-10-04] MEDS: GABAPENTIN 300 MG CAP PO SCH ×3 (08:08→20:09)
[2018-10-04] MEDS: LOSARTAN 50 MG TAB PO SCH (08:08)
[2018-10-04] MEDS: ISOSORBIDE MONONITRATE ER 30 MG TAB.ER.24H PO SCH (08:08)
[2018-10-04 09:26] LABS: Calcium 8.3 mg/dL (8.4-10.2); Potassium 5.2 mmol/L (3.5-5.1)
[2018-10-04 09:42] LABS: Anisocytosis Slight; HCT 29.8 % (34.0-46.0); HGB 8.7 gm/dL (11.4-16.0); Hypochromasia Marked; MCH 24.1 pg (25.0-35.0); MCHC 29.3 g/dL (31.0-37.0); MCV 82.1 fL (80.0-100.0); Mean Platelet Volume 7.8; Platelet Count 195 k/uL (150-450); RBC 3.63 m/uL (3.80-5.40); RDW 17.1 % (11.5-15.5); WBC 4.4 k/uL (3.8-10.6)
[2018-10-04] MEDS: BUMETANIDE 1 MG TAB PO SCH ×2 (10:20→16:09)
[2018-10-04] MEDS: ENOXAPARIN 40 MG/0.4 ML SYRINGE SQ SCH (10:20)
[2018-10-04 11:44] LABS: Basophils # (M) 0.04 k/uL (0-0.2); Eosinophils # (M) 0.22 k/uL (0-0.7); Lymphocytes # (M) 0.66 k/uL (1.0-4.8); Monocytes # (M) 0.53 k/uL (0-1.0); Neutrophils # (M) 2.95 k/uL (1.3-7.7); Neutrophils % (M) 67 %; Nucleated Red Blood Cells 0 /100 WBC (0-0); Total Cells Counted 100
[2018-10-04 12:03] LABS: Glucose,Whole Blood 115 mg/dL (75-99)
--- NOTE | 2018-10-04 15:56 | P.HPIM ---
History of Present Illness H&P Date: 10/02/18 Chief Complaint: Abdominal Pain This is a 72-year-old female the ER for evaluation. She is presenting today for evaluation regards to severe pain of bowel pain flank pain back pain. Patient's history of chronic pain. Patient was seen in ER 2 days ago for similar complaint. Patient states is related to kidney stones. No fevers she does have nausea and vomiting unable to take medications or no diarrhea. Patient does have history of intractable pain Review of Systems Constitutional: Denies chills, Denies fever Eyes: denies blurred vision Cardiovascular: Denies chest pain Respiratory: Denies cough with sputum Gastrointestinal: Reports abdominal pain, Denies nausea, Denies vomiting Genitourinary: Denies dysuria, Denies hot flashes Musculoskeletal: Reports frequent falls Integumentary: Denies color changes Neurological: Denies confusion Past Medical History Past Medical History: Coronary Artery Disease (CAD), Heart Failure, Diabetes Mellitus, Deep Vein Thrombosis (DVT), Hyperlipidemia, Hypertension, Renal Disease, Thyroid Disorder Additional Past Medical History / Comment(s): neuropathy,lupus, back pain, BACK WOUND-Healed, USES CANE , CATARACT RT EYES History of Any Multi-Drug Resistant Organisms: VRE Date of last positivie culture/infection: 04/01/16 MDRO Source:: back Past Surgical History: Appendectomy, Back Surgery, Breast Surgery, Cholecystec jules, Coronary Bypass/CABG, Pacemaker Additional Past Surgical History / Comment(s): thyroidectomy. triple bypass 2000, CATARACT LT EYE 11/2016, LUE dialysis port Past Anesthesia/Blood Transfusion Reactions: No Reported Reaction Additional Past Anesthesia/Blood Transfusion Reaction / Comment(s): CLAUSTROPHOBIA. HAD A BLOOD TRANSFUSION 1968-NO REACTION. Type of Cardiac Device: Permanent Pacemaker Device Placement Date:: january 2018 Past Psychological History: No Psychological Hx Reported Smoking Status: Former smoker Past Alcohol Use History: None Reported Past Drug Use History: None Reported - Past Family History Father Family Medical History: Cancer Additional Family Medical History / Comment(s): prostate cancer Mother Family Medical History: Cancer, Congestive Heart Failure (CHF), Diabetes Mellitus, Hyperlipidemia, Hypertension, Osteoarthritis (OA) Additional Family Medical History / Comment(s): colon cancer Brother(s) Family Medical History: Coronary Artery Disease (CAD), Deep Vein Thrombosis (DVT) Additional Family Medical History / Comment(s): back surgery Sister(s) Family Medical History: Hyperlipidemia Additional Family Medical History / Comment(s): thyroid cancer Medications and Allergies Home Medications Medication Instructions Recorded Confirmed Type Levothyroxine Sodium [Synthroid] 125 mcg PO DAILY 11/27/15 10/02/18 History Insulin NPL/Insulin Lispro See Protocol SQ AC-TID PRN 12/03/16 10/02/18 History [humaLOG MIX 75-25 VIAL] Gabapentin 600 mg PO TID 08/06/18 10/02/18 History Isosorbide Mononitrate ER [Imdur] 30 mg PO DAILY 08/06/18 10/02/18 History Aspirin EC [Ecotrin Low Dose] 81 mg PO DAILY 09/09/18 10/02/18 History Bumetanide [BUMEX] 1 mg PO TID 09/09/18 10/02/18 History HYDROcodone/APAP 5-325MG [[place] 1 tab PO Q6HR PRN #10 tab 09/09/18 10/02/18 Rx 5-325] Insulin NPL/Insulin Lispro 5 units SQ AC-TID 09/09/18 10/02/18 History [humaLOG MIX 75-25 VIAL] Losartan [Cozaar] 50 mg PO DAILY 09/09/18 10/02/18 History Cyclobenzaprine [Flexeril] 10 mg PO TID PRN 09/30/18 10/02/18 History Ciprofloxacin HCl [Cipro] 500 mg PO BID 10/02/18 10/02/18 History Allergies Allergy/AdvReac Type Severity Reaction Status Date / Time No Known Allergies Allergy Verified 10/02/18 14:27 Physical Exam Vitals: Vital Signs Temp Pulse Pulse Resp BP BP Pulse Ox 10/02/18 14:45 97.7 F 74 16 149/90 97 10/02/18 13:30 98.4 F 79 19 124/97 97 10/02/18 12:30 67 18 150/64 98 10/02/18 12:00 77 20 140/66 100 10/02/18 11:29 97.4 F L 85 18 155/71 100 Intake and Output 10/02/18 10/02/18 10/02/18 06:59 14:59 22:59 Intake Total 0 Balance 0 Intake: Oral 0 Other: Weight 104.326 kg Limitations: no limitations General appearance: alert, in no apparent distress Head exam: Present: atraumatic, normocephalic, normal inspection Eye exam: Present: normal appearance, PERRL, EOMI. Absent: scleral icterus, conjunctival injection, periorbital swelling ENT exam: Present: normal exam, mucous membranes moist Neck exam: Present: normal inspection. Absent: tenderness, meningismus, l ymphadenopathy Respiratory exam: Present: normal lung sounds bilaterally. Absent: respiratory distress, wheezes, rales, rhonchi, stridor Cardiovascular Exam: Present: regular rate, normal rhythm, normal heart sounds. Absent: systolic murmur, diastolic murmur, rubs, gallop, clicks GI/Abdominal exam: Present: soft, normal bowel sounds. Absent: distended, tenderness, guarding, rebound, rigid Extremities exam: Present: normal inspection, full ROM, normal capillary refill. Absent: tenderness, pedal edema, joint swelling, calf tenderness Back exam: Present: normal inspection Neurological exam: Present: alert, oriented X3, CN II-XII intact Psychiatric exam: Present: normal affect, normal mood Skin exam: Present: warm, dry, intact, normal color. Absent: rash Results CBC & Chem 7: 10/04/18 08:34 10/04/18 08:34 Labs: Abnormal Lab Results - Last 24 Hours (Table) 10/02/18 10/02/18 10/02/18 Range/Units 11:58 11:58 15:02 WBC 3.7 L (3.8-10.6) k/uL Hgb 9.8 L (11.4-16.0) gm/dL Hct 31.9 L (34.0-46.0) % MCH 24.6 L (25.0-35.0) pg MCHC 30.6 L (31.0-37.0) g/dL RDW 16.6 H (11.5-15.5) % Lymphocytes # 0.8 L (1.0-4.8) k/uL BUN 30 H (7-17) mg/dL Creatinine 1.23 H (0.52-1.04) mg/dL Glucose 229 H (74-99) mg/dL POC Glucose (mg/dL) 182 H (75-99) mg/dL Thrombosis Risk Factor Assmnt - Choose All That Apply Any of the Below Risk Factors Present?: Yes Each Factor Represents 1 point: Obesity (BMI >25), Swollen legs (current) Each Risk Factor Represents 2 Points: Age 61-74 years Each Risk Factor Represents 3 Points: Family history of DVT/PE, History of DVT/PE Thrombosis Risk Factor Assessment Total Risk Factor Score: 10 Thrombosis Risk Factor Assessment Level: High Risk Assessment and Plan Assessment: 1. Intractable abdominal pain; possible enteritis - CT of the abdomen was done which showed possible enteritis; patient's abdominal exam remains benign 2. Right flank pain; possible renal colic/nephrolithiasis - Computed tomography scan is negative for nephrolithiasis; urology is following; flank pain is not typical renal colic and is most likely musculoskeletal in origin; no further evaluation as recommended 3. Acute exacerbation of low back pain - Patient is evaluated by orthopedic surgery for chronic lumbar back pain secondary to lumbar degenerative disc disease with multiple lumbar surgeries; she is recommended pain control and follow-up as an outpatient with experienced orthopedic spine surgeon for further evaluation - We will consult pain management for further recommendations; patient remains on [place] 5 mg every 6 hours when necessary along with Dilaudid 1 mg every 4 hours when necessary 4. Hypothyroidism; Synthroid 125 MCG daily 5. Insulin-dependent diabetes; we will monitor Accu-Cheks every before meals and at bedtime with insulin sliding scale and continue with NovoLog mix 7035 units subcu before meals 3 times a day 6. Hypertension; stable on home dose of losartan 50 mg daily 7. DVT prophylaxis; subcu Lovenox CODE STATUS; full code Time with Patient: Greater than 30
--- NOTE | 2018-10-04 15:59 | P.PN ---
Subjective Progress Note Date: 10/03/18 Principal diagnosis: Severe back/abdominal pain 72-year-old woman who presented to [facility] today with increasing right-sided back pain. Patient was recently in the hospital a few days ago with the same problem, she multiple imaging test at that time. Patient has a extensive history involving the lumbar spine, she's had over 5 different back surgeries. Her most recent surgery was in 2017, this was a hardware removal procedure for infection. This surgery was done at [facility]. Patient states that since last surgery she's had chronic pain involving the low back. Patient recently moved back from [place] about 4 months ago, she was down in about 2 years. While in [place], she was prescribed heavy- duty oral narcotics which significantly helped her pain. 10/03/2018 Patient is seen and evaluated in room at bedside; continues to complain of severe back pain Vital signs are reviewed and stable Patient has been evaluated by urology and orthopedic surgery; patient's flank pain is not typical for renal colic and no evidence of renal calculi has been found on CAT scan of abdomen; no further urology evaluation as recommended. Orthopedic surgery is recommending follow-up as an outpatient with orthopedic surgery specializing in spine surgery/ pain management is consulted for pain control; patient will continue with [place] 5 mg every 6 hours and IV Dilaudid when necessary Objective - Vital Signs Vital signs: Vital Signs Temp 97.5 F L 10/03/18 08:37 Pulse 78 10/03/18 08:37 Resp 18 10/03/18 08:37 BP 108/79 10/03/18 08:37 Pulse Ox 98 10/03/18 08:37 Intake & Output 10/02/18 10/03/18 10/03/18 18:59 06:59 18:59 Intake Total 0 Output Total 200 Balance 0 -200 Weight 108.8 kg Intake: Oral 0 Output: Urine 200 Other: # Voids 1 1 - Exam PHYSICAL EXAMINATION: GENERAL: The patient is alert and oriented x3, not in any acute distress. Well developed, well nourished. HEENT: Pupils are round and equally reacting to light. EOMI. No scleral icterus. No conjunctival pallor. Normocephalic, atraumatic. No pharyngeal erythema. No thyromegaly. CARDIOVASCULAR: S1 and S2 present. No murmurs, rubs, or gallops. PULMONARY: Chest is clear to auscultation, no wheezing or crackles. ABDOMEN: Soft, nontender, nondistended, normoactive bowel sounds. No palpable organomegaly. MUSCULOSKELETAL: No joint swelling or deformity. EXTREMITIES: No cyanosis, clubbing, or pedal edema. NEUROLOGICAL: Gross neurological examination did not reveal any focal deficits. SKIN: No rashes. - Labs CBC & Chem 7: 10/04/18 08:34 10/04/18 08:34 Labs: Abnormal Lab Results - Last 24 Hours (Table) 10/02/18 10/02/18 10/02/18 Range/Units 15:02 18:11 20:41 POC Glucose (mg/dL) 182 H 132 H 159 H (75-99) mg/dL 10/03/18 10/03/18 Range/Units 06:53 11:33 POC Glucose (mg/dL) 113 H 123 H (75-99) mg/dL Microbiology - Last 24 Hours (Table) 10/02/18 12:15 Urine Culture - Preliminary Urine,Voided Assessment and Plan Assessment: 1. Intractable abdominal pain; possible enteritis - CT of the abdomen was done which showed possible enteritis; patient's abdominal exam remains benign 2. Right flank pain; possible renal colic/nephrolithiasis - Computed tomography scan is negative for nephrolithiasis; urology is following; flank pain is not typical renal colic and is most likely musculoskeletal in origin; no further evaluation as recommended 3. Acute exacerbation of low back pain - Patient is evaluated by orthopedic surgery for chronic lumbar back pain secondary to lumbar degenerative disc disease with multiple lumbar surgeries; she is recommended pain control and follow-up as an outpatient with experienced orthopedic spine surgeon for further evaluation - We will consult pain management for further recommendations; patient remains on [place] 5 mg every 6 hours when necessary along with Dilaudid 1 mg every 4 hours when necessary 4. Hypothyroidism; Synthroid 125 MCG daily 5. Insulin-dependent diabetes; we will monitor Accu-Cheks every before meals and at bedtime with insulin sliding scale and continue with NovoLog mix 7035 units subcu before meals 3 times a day 6. Hypertension; stable on home dose of losartan 50 mg daily 7. DVT prophylaxis; subcu Lovenox CODE STATUS; full code Time with Patient: Greater than 30 Time with Patient: Greater than 30
[2018-10-04 17:04] LABS: Glucose,Whole Blood 176 mg/dL (75-99)
[2018-10-04] MEDS: HYDROmorphone 0.5 MG/0.5 ML SYRINGE IVP PRN (17:29)
[2018-10-04] MEDS: SODIUM CHLORIDE 0.9% 1,000 ML IV SCH ×2 (17:34→20:09)
[2018-10-04 20:16] LABS: Glucose,Whole Blood 81 mg/dL (75-99)
--- NOTE | 2018-10-05 01:52 | P.PN ---
Subjective Progress Note Date: 10/04/18 Principal diagnosis: Severe back/abdominal pain 72-year-old woman who presented to [facility] today with increasing right-sided back pain. Patient was recently in the hospital a few days ago with the same problem, she multiple imaging test at that time. Patient has a extensive history involving the lumbar spine, she's had over 5 different back surgeries. Her most recent surgery was in 2017, this was a hardware removal procedure for infection. This surgery was done at [facility]. Patient states that since last surgery she's had chronic pain involving the low back. Patient recently moved back from [place] about 4 months ago, she was down in about 2 years. While in [place], she was prescribed heavy- duty oral narcotics which significantly helped her pain. 10/03/2018 Patient is seen and evaluated in room at bedside; continues to complain of severe back pain Vital signs are reviewed and stable Patient has been evaluated by urology and orthopedic surgery; patient's flank pain is not typical for renal colic and no evidence of renal calculi has been found on CAT scan of abdomen; no further urology evaluation as recommended. Orthopedic surgery is recommending follow-up as an outpatient with orthopedic surgery specializing in spine surgery/ pain management is consulted for pain control; patient will continue with [place] 5 mg every 6 hours and IV Dilaudid when necessary 10/04/2018 Patient is seen and evaluated in room at bedside; this denies any specific complaints except for back pain Vital signs are significant for a low-grade temperature of 100.7, pulse of 86, respirations 16 and blood pressure of 102/61 with SpO2 of 93% on room air Lab review shows a white blood count of 4.4, hemoglobin 8.7; chemical profile sodium 136, potassium of 5.2 and B UN/creatinine of 41/2.14; we will start patient on slow IV fluid hydration with normal saline at a rate of 75 mL an hour for worsening renal failure; potassium is borderline at 5.2; we will hold off of any treatment and monitor potassium levels and morning; we will hold Cozaar and Bumex; we will consult nephrology for further recommendations Objective - Vital Signs Vital signs: Vital Signs Temp 100.7 F H 10/04/18 14:19 Pulse 86 10/04/18 14:19 Resp 16 10/04/18 14:19 BP 97/57 05/19/19 14:19 Pulse Ox 93 L 10/04/18 14:19 Intake & Output 10/03/18 10/04/18 10/04/18 18:59 06:59 18:59 Intake Total 400 240 540 Balance 400 240 540 Intake: Oral 400 240 540 Other: Voiding Method Toilet Toilet Bedside Commode Bedside Commode # Voids 0 2 - Exam PHYSICAL EXAMINATION: GENERAL: The patient is alert and oriented x3, not in any acute distress. Well developed, well nourished. HEENT: Pupils are round and equally reacting to light. EOMI. No scleral icterus. No conjunctival pallor. Normocephalic, atraumatic. No pharyngeal erythema. No thyromegaly. CARDIOVASCULAR: S1 and S2 present. No murmurs, rubs, or gallops. PULMONARY: Chest is clear to auscultation, no wheezing or crackles. ABDOMEN: Soft, nontender, nondistended, normoactive bowel sounds. No palpable organomegaly. MUSCULOSKELETAL: No joint swelling or deformity. EXTREMITIES: No cyanosis, clubbing, or pedal edema. NEUROLOGICAL: Gross neurological examination did not reveal any focal deficits. SKIN: No rashes. - Labs CBC & Chem 7: 10/04/18 08:34 10/04/18 08:34 Labs: Abnormal Lab Results - Last 24 Hours (Table) 10/02/18 10/03/18 10/03/18 Range/Units 11:58 16:35 22:00 RBC (3.80-5.40) m/uL Hgb (11.4-16.0) gm/dL Hct (34.0-46.0) % MCH (25.0-35.0) pg MCHC (31.0-37.0) g/dL RDW (11.5-15.5) % Lymphocytes # (Manual) (1.0-4.8) k/uL Sodium (137-145) mmol/L Potassium (3.5-5.1) mmol/L Carbon Dioxide (22-30) mmol/L BUN (7-17) mg/dL Creatinine (0.52-1.04) mg/dL Glucose (74-99) mg/dL POC Glucose (mg/dL) 72 L 74 L (75-99) mg/dL Hemoglobin A1c 7.2 H (4.0-6.0) % Calcium (8.4-10.2) mg/dL 10/04/18 10/04/18 10/04/18 Range/Units 07:12 08:34 08:34 RBC 3.63 L (3.80-5.40) m/uL Hgb 8.7 L (11.4-16.0) gm/dL Hct 29.8 L (34.0-46.0) % MCH 24.1 L (25.0-35.0) pg MCHC 29.3 L (31.0-37.0) g/dL RDW 17.1 H (11.5-15.5) % Lymphocytes # (Manual) 0.66 L (1.0-4.8) k/uL Sodium 136 L (137-145) mmol/L Potassium 5.2 H (3.5-5.1) mmol/L Carbon Dioxide 20 L (22-30) mmol/L BUN 41 H (7-17) mg/dL Creatinine 2.14 H (0.52-1.04) mg/dL Glucose 116 H (74-99) mg/dL POC Glucose (mg/dL) 136 H (75-99) mg/dL Hemoglobin A1c (4.0-6.0) % Calcium 8.3 L (8.4-10.2) mg/dL 10/04/18 Range/Units 11:44 RBC (3.80-5.40) m/uL Hgb (11.4-16.0) gm/dL Hct (34.0-46.0) % MCH (25.0-35.0) pg MCHC (31.0-37.0) g/dL RDW (11.5-15.5) % Lymphocytes # (Manual) (1.0-4.8) k/uL Sodium (137-145) mmol/L Potassium (3.5-5.1) mmol/L Carbon Dioxide (22-30) mmol/L BUN (7-17) mg/dL Creatinine (0.52-1.04) mg/dL Glucose (74-99) mg/dL POC Glucose (mg/dL) 115 H (75-99) mg/dL Hemoglobin A1c (4.0-6.0) % Calcium (8.4-10.2) mg/dL Microbiology - Last 24 Hours (Table) 10/02/18 12:15 Urine Culture - Final Urine,Voided Assessment and Plan Assessment: 1. Intractable abdominal pain; possible enteritis - CT of the abdomen was done which showed possible enteritis; patient's abdominal exam remains benign 2. Right flank pain; possible renal colic/nephrolithiasis - Computed tomography scan is negative for nephrolithiasis; urology is following; flank pain is not typical renal colic and is most likely musculoskeletal in origin; no further evaluation as recommended 3. Acute exacerbation of low back pain - Patient is evaluated by orthopedic surgery for chronic lumbar back pain secondary to lumbar degenerative disc disease with multiple lumbar surgeries; she is recommended pain control and follow-up as an outpatient with experienced orthopedic spine surgeon for further evaluation - We will consult pain management for further recommendations; patient remains on [place] 5 mg every 6 hours when necessary along with Dilaudid 1 mg every 4 hours when necessary 4. Hypothyroidism; Synthroid 125 MCG daily 5. Insulin-dependent diabetes; we will monitor Accu-Cheks every before meals and at bedtime with insulin sliding scale and continue with NovoLog mix 7035 units subcu before meals 3 times a day 6. Hypertension; stable on home dose of losartan 50 mg daily 7. DVT prophylaxis; subcu Lovenox CODE STATUS; full code Time with Patient: Greater than 30 Time with Patient: Greater than 30
[2018-10-05] MEDS: HYDROcodone/APAP 5-325MG 1 EACH TAB PO PRN ×2 (04:16→09:33)
[2018-10-05] MEDS: SODIUM CHLORIDE 0.9% 1,000 ML IV SCH ×2 (05:00→22:31)
[2018-10-05] MEDS: LEVOTHYROXINE 125 MCG TAB PO SCH (05:48)
[2018-10-05] MEDS: HYDROmorphone 0.5 MG/0.5 ML SYRINGE IVP PRN ×4 (06:06→23:56)
--- NOTE | 2018-10-05 07:24 | P.PN ---
Subjective Progress Note Date: 10/05/18 Principal diagnosis: Low back pain This a continue present on a 72-year-old white female essentially admitted for intractable back pain. She is had history of opiate dependency in the past. She is currently on Dilaudid and [place]. Appreciate pain management and multiple consultants including neurology services for possible renal colic. At this time, this is not the mode of thinking. She has struggled with back pain in the past. Surgical evaluation has deemed her initially not a surgical case because she's had previous work outside the area. Objective - Vital Signs Vital signs: Vital Signs Temp 99.2 F 10/05/18 01:17 Pulse 83 10/05/18 01:17 Resp 16 10/05/18 01:17 BP 110/53 10/05/18 01:17 Pulse Ox 91 L 10/05/18 01:17 Intake & Output 10/04/18 10/05/18 10/05/18 18:59 06:59 18:59 Intake Total 1080 250 Balance 1080 250 Intake: Oral 1080 250 Other: Voiding Method Toilet Bedside Commode # Voids 4 1 - Constitutional General appearance: Present: obese - EENT Eyes: Absent: abnormal pupil - Neck Neck: Absent: lymphadenopathy - Respiratory Respiratory: bilateral: CTA - Cardiovascular Rhythm: regular Heart sounds: normal: S1, S2 Abnormal Heart Sounds: Absent: S3 Gallop - Gastrointestinal General gastrointestinal: Present: soft. Absent: tenderness - Neurologic Neurologic: Present: CNII-XII intact. Absent: focal deficits - Labs CBC & Chem 7: 10/04/18 08:34 10/04/18 08:34 Labs: Abnormal Lab Results - Last 24 Hours (Table) 10/04/18 10/04/18 10/04/18 Range/Units 07:12 08:34 08:34 RBC 3.63 L (3.80-5.40) m/uL Hgb 8.7 L (11.4-16.0) gm/dL Hct 29.8 L (34.0-46.0) % MCH 24.1 L (25.0-35.0) pg MCHC 29.3 L (31.0-37.0) g/dL RDW 17.1 H (11.5-15.5) % Lymphocytes # (Manual) 0.66 L (1.0-4.8) k/uL Sodium 136 L (137-145) mmol/L Potassium 5.2 H (3.5-5.1) mmol/L Carbon Dioxide 20 L (22-30) mmol/L BUN 41 H (7-17) mg/dL Creatinine 2.14 H (0.52-1.04) mg/dL Glucose 116 H (74-99) mg/dL POC Glucose (mg/dL) 136 H (75-99) mg/dL Calcium 8.3 L (8.4-10.2) mg/dL 10/04/18 10/04/18 Range/Units 11:44 16:52 RBC (3.80-5.40) m/uL Hgb (11.4-16.0) gm/dL Hct (34.0-46.0) % MCH (25.0-35.0) pg MCHC (31.0-37.0) g/dL RDW (11.5-15.5) % Lymphocytes # (Manual) (1.0-4.8) k/uL Sodium (137-145) mmol/L Potassium (3.5-5.1) mmol/L Carbon Dioxide (22-30) mmol/L BUN (7-17) mg/dL Creatinine (0.52-1.04) mg/dL Glucose (74-99) mg/dL POC Glucose (mg/dL) 115 H 176 H (75-99) mg/dL Calcium (8.4-10.2) mg/dL Assessment and Plan (1) Intractable pain Current Visit: Yes Status: Acute Code(s): R52 - PAIN, UNSPECIFIED SNOMED Code(s): 17272387 (2) Right flank pain Current Visit: Yes Status: Acute Code(s): R10.9 - UNSPECIFIED ABDOMINAL PAIN SNOMED Code(s): 388135216 (3) Diabetes mellitus Current Visit: No Status: Acute Code(s): E11.9 - TYPE 2 DIABETES MELLITUS WITHOUT COMPLICATIONS SNOMED Code(s): 26456114 (4) History of lumbar fusion Current Visit: No Status: Acute Code(s): Z98.890 - OTHER SPECIFIED POSTPROCEDURAL STATES SNOMED Code(s): 358152515 (5) Radiculopathy with lower extremity symptoms Current Visit: No Status: Acute Code(s): M54.10 - RADICULOPATHY, SITE UNSPECIFIED SNOMED Code(s): 78209982 Plan: Continue current regimen of medical management. Await pain management input. Question need to repeat epidural steroid injection. Anticipate discharge in next 24-48 hours. She orders otherwise. Time with Patient: Greater than 30
[2018-10-05] MEDS: INSULN ASP PRT/INSULIN ASPART 100 UNIT/ML 10 ML VIAL SQ SCH ×3 (08:09→16:56)
[2018-10-05] MEDS: INSULIN ASPART (NovoLOG) 100 UNIT/ML VIAL SQ SCH ×4 (08:09→20:51)
[2018-10-05] MEDS: ASPIRIN 81 MG PO SCH (08:10)
[2018-10-05] MEDS: ISOSORBIDE MONONITRATE ER 30 MG TAB.ER.24H PO SCH (08:10)
[2018-10-05] MEDS: GABAPENTIN 300 MG CAP PO SCH ×3 (08:10→22:29)
[2018-10-05] MEDS: ENOXAPARIN 40 MG/0.4 ML SYRINGE SQ SCH (08:13)
[2018-10-05 08:20] LABS: Anisocytosis Slight; HCT 28.6 % (34.0-46.0); HGB 8.4 gm/dL (11.4-16.0); Hypochromasia Marked; MCH 23.7 pg (25.0-35.0); MCHC 29.5 g/dL (31.0-37.0); MCV 80.3 fL (80.0-100.0); Mean Platelet Volume 7.9; Microcytosis Slight; Platelet Count 190 k/uL (150-450); RBC 3.56 m/uL (3.80-5.40); RDW 17.3 % (11.5-15.5); WBC 3.1 k/uL (3.8-10.6)
[2018-10-05 08:36] LABS: Calcium 8.5 mg/dL (8.4-10.2); Potassium 4.8 mmol/L (3.5-5.1)
--- NOTE | 2018-10-05 09:19 | P.NPCON ---
History of Present Illness - Reason for Consult acute renal failure - History of Present Illness Reason for consultation: Acute kidney injury History of present illness: Patient is a 72-year-old female seen in renal consultation for acute kidney injury. Patient's baseline creatinine is 1 and was elevated at 2.14 on admission. She did receive IV fluids and her home diuretics have been held. Renal function is improving. Creatinine is down to 1.6 today. Patient presented to the hospital with low back pain which was radiating to her right flank. Imaging revealed no evidence of nephrolithiasis. She admits to good urine output. Denies hematuria or dysuria. No vomiting or diarrhea. Oral intake is good. Patient does take Bumex 1 mg 3 times daily for edema. Currently she has no edema. Hemodynamically she is stable. UA is benign without evidence of UTI. Denies use of nonsteroidals. Patient does have history of ATN requiring temporary hemodialysis in 2016. Denies family history of renal disease. Vital signs are stable. General: The patient appeared well nourished and normally developed. HEENT: Head exam is unremarkable. Neck is without jugular venous distension. LUNGS: Lungs are clear to auscultation and percussion. Breath sounds decreased. HEART: Rate and Rhythm are regular. First and second heart sounds normal. No murmurs, rubs or gallops. ABDOMEN: Abdominal exam reveals normal bowel sounds. Non-tender and non- distended. No evidence of peritonitis. EXTREMITITES: No clubbing, cyanosis, or edema. Past Medical History Past Medical History: Coronary Artery Disease (CAD), Heart Failure, Diabetes Mellitus, Deep Vein Thrombosis (DVT), Hyperlipidemia, Hypertension, Renal Disease, Thyroid Disorder Additional Past Medical History / Comment(s): neuropathy,lupus, back pain, BACK WOUND-Healed, USES CANE , CATARACT RT EYES History of Any Multi-Drug Resistant Organisms: VRE Date of last positivie culture/infection: 04/01/16 MDRO Source:: back Past Surgical History: Appendectomy, Back Surgery, Breast Surgery, C holecystectomy, Coronary Bypass/CABG, Pacemaker Additional Past Surgical History / Comment(s): thyroidectomy. triple bypass 2000, CATARACT LT EYE 11/2016, LUE dialysis port Past Anesthesia/Blood Transfusion Reactions: No Reported Reaction Additional Past Anesthesia/Blood Transfusion Reaction / Comment(s): CLAUSTROPHOBIA. HAD A BLOOD TRANSFUSION 1968-NO REACTION. Type of Cardiac Device: Permanent Pacemaker Device Placement Date:: january 2018 Past Psychological History: No Psychological Hx Reported Smoking Status: Former smoker Past Alcohol Use History: None Reported Past Drug Use History: None Reported - Past Family History Father Family Medical History: Cancer Additional Family Medical History / Comment(s): prostate cancer Mother Family Medical History: Cancer, Congestive Heart Failure (CHF), Diabetes Mellitus, Hyperlipidemia, Hypertension, Osteoarthritis (OA) Additional Family Medical History / Comment(s): colon cancer Brother(s) Family Medical History: Coronary Artery Disease (CAD), Deep Vein Thrombosis (DVT) Additional Family Medical History / Comment(s): back surgery Sister(s) Family Medical History: Hyperlipidemia Additional Family Medical History / Comment(s): thyroid cancer Medications and Allergies Home Medications Medication Instructions Recorded Confirmed Type Levothyroxine Sodium [Synthroid] 125 mcg PO DAILY 11/27/15 10/02/18 History Insulin NPL/Insulin Lispro See Protocol SQ AC-TID PRN 12/03/16 10/02/18 History [humaLOG MIX 75-25 VIAL] Gabapentin 600 mg PO TID 08/06/18 10/02/18 History Isosorbide Mononitrate ER [Imdur] 30 mg PO DAILY 08/06/18 10/02/18 History Aspirin EC [Ecotrin Low Dose] 81 mg PO DAILY 09/09/18 10/02/18 History Bumetanide [BUMEX] 1 mg PO TID 09/09/18 10/02/18 History HYDROcodone/APAP 5-325MG [[place] 1 tab PO Q6HR PRN #10 tab 09/09/18 10/02/18 Rx 5-325] Insulin NPL/Insulin Lispro 5 units SQ AC-TID 09/09/18 10/02/18 History [humaLOG MIX 75-25 VIAL] Losartan [Cozaar] 50 mg PO DAILY 09/09/18 10/02/18 History Cyclobenzaprine [Flexeril] 10 mg PO TID PRN 09/30/18 10/02/18 History Ciprofloxacin HCl [Cipro] 500 mg PO BID 10/02/18 10/02/18 History Allergies Allergy/AdvReac Type Severity Reaction Status Date / Time No Known Allergies Allergy Verified 10/02/18 14:27 Physical Exam Vitals: Vital Signs Temp Pulse Resp BP Pulse Ox 10/05/18 07:00 98.3 F 83 17 126/64 92 L 10/05/18 01:17 99.2 F 83 16 110/53 91 L 10/04/18 19:15 98.7 F 89 18 93/53 98 10/04/18 17:30 99.2 F 93 114/61 10/04/18 14:19 100.7 F H 86 16 97/57 93 L Intake and Output 10/04/18 10/05/18 10/05/18 22:59 06:59 14:59 Intake Total 790 480 Balance 790 480 Intake: Oral 790 480 Other: # Voids 2 1 Results - Lab Results Most recent lab results Calcium 8.5 mg/dL (8.4-10.2) 10/05/18 07:44 10/05/18 07:44 10/05/18 07:44 Assessment and Plan Plan: Assessment: 1. Acute kidney injury mostly prerenal secondary to intravascular volume depletion from diuretics. Creatinine 2.14 on admission and is down to 1.6 today. Baseline creatinine near 1. UA is completely benign. No evidence of hydronephrosis noted on imaging. 2. Right-sided flank pain likely musculoskeletal. No evidence of nephrolithiasis or hydronephrosis noted on imaging. 3. Anemia. Rule out iron deficiency. 4. Metabolic acidosis secondary to acute kidney injury. 5. Diabetes mellitus. Plan: Hold diuretics. No need for IV fluids. Encourage oral intake. Avoid nephrotoxins. Repeat electrolytes in the morning. Check iron studies. Thank you for the consultation. I will continue to follow the patient with you during her hospital stay.
[2018-10-05 09:47] LABS: Eosinophils # (M) 0.22 k/uL (0-0.7); Lymphocytes # (M) 0.56 k/uL (1.0-4.8); Metamyelocytes # (M) 0.03 k/uL (0); Metamyelocytes % 1 %; Monocytes # (M) 0.28 k/uL (0-1.0); Neutrophils # (M) 2.02 k/uL (1.3-7.7); Neutrophils % (M) 65 %; Nucleated Red Blood Cells 0 /100 WBC (0-0); Total Cells Counted 100
[2018-10-05 09:58] LABS: Glucose,Whole Blood 134 mg/dL (75-99)
[2018-10-05 12:07] LABS: Glucose,Whole Blood 131 mg/dL (75-99)
--- NOTE | 2018-10-05 14:06 | P.PAINCN ---
History of Present Illness - Reason for Consult Consult date: 10/05/18 - History of Present Illness this is an initial consultation for this 72 years old female, with a chronic history of severe low back pain, patient reported that she had 5 lumbar surgical interventions, and old failed to control her pain, patient developed infections in lumbar fusion, and she had to remove the hardware, and the last surgery done 2 years ago, patient was treated in [place] with different pain medication in cluding OxyContin 20 mg every 6 hours and morphine sulfate 30 mg daily at bedtime, patient had caudal epidural steroid injections done at [facility], without any benefit, she continued to have severe low back pain with radiation to the lower extremity, the intensity of the pain interfering with the quality of life, she is ambulating using cane, she feels her lower extremity weak, she had reported that the pain and the numbness radiated occasionally to the lower extremity Past Medical History Past Medical History: Coronary Artery Disease (CAD), Heart Failure, Diabetes Mellitus, Deep Vein Thrombosis (DVT), Hyperlipidemia, Hypertension, Renal Disease, Thyroid Disorder Additional Past Medical History / Comment(s): neuropathy,lupus, back pain, BACK WOUND-Healed, USES CANE , CATARACT RT EYES History of Any Multi-Drug Resistant Organisms: VRE Year Discovered:: 04/01/16 MDRO Source:: back Past Surgical History: Appendectomy, Back Surgery, Breast Surgery, Cholecystectomy, Coronary Bypass/CABG, Pacemaker Additional Past Surgical History / Comment(s): thyroidectomy. triple bypass 2000, CATARACT LT EYE 11/2016, LUE dialysis port Past Anesthesia/Blood Transfusion Reactions: No Reported Reaction Additional Past Anesthesia/Blood Transfusion Reaction / Comm: CLAUSTROPHOBIA. HAD A BLOOD TRANSFUSION 1968-NO REACTION. Type of Cardiac Device: Permanent Pacemaker Device Placement Date:: january 2018 Past Psychological History: No Psychological Hx Reported Smoking Status: Former smoker Past Alcohol Use History: None Reported Past Drug Use History: None Reported - Past Family History Father Family Medical History: Cancer Additional Family Medical History / Comment(s): prostate cancer Mother Family Medical History: Cancer, Congestive Heart Failure (CHF), Diabetes Mellitus, Hyperlipidemia, Hypertension, Osteoarthritis (OA) Additional Family Medical History / Comment(s): colon cancer Brother(s) Family Medical History: Coronary Artery Disease (CAD), Deep Vein Thrombosis (DVT) Additional Family Medical History / Comment(s): back surgery Sister(s) Family Medical History: Hyperlipidemia Additional Family Medical History / Comment(s): thyroid cancer Medications and Allergies Home Medications Medication Instructions Recorded Confirmed Type Levothyroxine Sodium [Synthroid] 125 mcg PO DAILY 11/27/15 10/02/18 History Insulin NPL/Insulin Lispro See Protocol SQ AC-TID PRN 12/03/16 10/02/18 History [humaLOG MIX 75-25 VIAL] Gabapentin 600 mg PO TID 08/06/18 10/02/18 History Isosorbide Mononitrate ER [Imdur] 30 mg PO DAILY 08/06/18 10/02/18 History Aspirin EC [Ecotrin Low Dose] 81 mg PO DAILY 09/09/18 10/02/18 History Bumetanide [BUMEX] 1 mg PO TID 09/09/18 10/02/18 History HYDROcodone/APAP 5-325MG [[place] 1 tab PO Q6HR PRN #10 tab 09/09/18 10/02/18 Rx 5-325] Insulin NPL/Insulin Lispro 5 units SQ AC-TID 09/09/18 10/02/18 History [humaLOG MIX 75-25 VIAL] Losartan [Cozaar] 50 mg PO DAILY 09/09/18 10/02/18 History Cyclobenzaprine [Flexeril] 10 mg PO TID PRN 09/30/18 10/02/18 History Ciprofloxacin HCl [Cipro] 500 mg PO BID 10/02/18 10/02/18 History Allergies Allergy/AdvReac Type Severity Reaction Status Date / Time No Known Allergies Allergy Verified 10/02/18 14:27 Physical Exam Vitals: Vital Signs Temp Pulse Resp BP Pulse Ox 10/05/18 07:00 98.3 F 83 17 126/64 92 L 10/05/18 01:17 99.2 F 83 16 110/53 91 L 10/04/18 19:15 98.7 F 89 18 93/53 98 10/04/18 17:30 99.2 F 93 114/61 10/04/18 14:19 100.7 F H 86 16 97/57 93 L Intake and Output 10/04/18 10/05/18 10/05/18 22:59 06:59 14:59 Intake Total 790 480 Balance 790 480 Intake: Oral 790 480 Other: # Voids 2 1 Physical Examinations : -Constitutional : Cooperative , not in acute distress . -HEENT : nech ; supple , no Lymphadenopathy , no Thyromegaly , :eyes : no icterus, no photophobia . ENT : normal oropharynx , no Thrush - Respiratory : Chest clear to auscultations Bilaterally , no wheezing . - Cardiovascular : regular rate and rhythem , S1 , S2 , no S3 , no S4. - Gastrointestina l: abdomen soft no tenderness , no organomegally . - Genitourinary : Defferred . -Integumentary : No cellulitis , no ulcers , normal skin turgor , no cyanotic . - neurologic : Cranial nerve II to XII intact , no focal neurological deffecit -psychatric : alert , oriented X 3 , appropriate affect , intact judgment and insight . -Lymphatic : no Lymphadenopathy. - musculoskeltal: Lumber spine moter stegnth lower extremities ,thigh and legs 4/5 Right side , 4/5 Left side deep tendon reflexes : normal Knee Jerk , normal ankle Jerk positive lumber facet Loading Test Range of motion of the lumbar spine Flexion 30 degrees, extension 10 degrees strait leg raising test , positive at 30 degree Fabere test positive RT and positive LT . Severe tenderness over the sacroiliac joint on the right side, and on the left side [place] test= positive bilaterally Seated flexion test= positive bilaterally Results CBC & Chem 7: 10/05/18 07:44 10/05/18 07:44 Labs: Abnormal Lab Results - Last 24 Hours (Table) 10/04/18 10/05/18 10/05/18 Range/Units 16:52 07:06 07:44 WBC 3.1 L (3.8-10.6) k/uL RBC 3.56 L (3.80-5.40) m/uL Hgb 8.4 L (11.4-16.0) gm/dL Hct 28.6 L (34.0-46.0) % MCH 23.7 L (25.0-35.0) pg MCHC 29.5 L (31.0-37.0) g/dL RDW 17.3 H (11.5-15.5) % Lymphocytes # (Manual) 0.56 L (1.0-4.8) k/uL Metamyelocytes # (Man) 0.03 H (0) k/uL Chloride (98-107) mmol/L Carbon Dioxide (22-30) mmol/L BUN (7-17) mg/dL Creatinine (0.52-1.04) mg/dL Glucose (74-99) mg/dL POC Glucose (mg/dL) 176 H 134 H (75-99) mg/dL 10/05/18 10/05/18 Range/Units 07:44 12:06 WBC (3.8-10.6) k/uL RBC (3.80-5.40) m/uL Hgb (11.4-16.0) gm/dL Hct (34.0-46.0) % MCH (25.0-35.0) pg MCHC (31.0-37.0) g/dL RDW (11.5-15.5) % Lymphocytes # (Manual) (1.0-4.8) k/uL Metamyelocytes # (Man) (0) k/uL Chloride 108 H (98-107) mmol/L Carbon Dioxide 21 L (22-30) mmol/L BUN 47 H (7-17) mg/dL Creatinine 1.60 H (0.52-1.04) mg/dL Glucose 111 H (74-99) mg/dL POC Glucose (mg/dL) 131 H (75-99) mg/dL Assessment and Plan Plan: assessment and plan= postlaminectomy pain syndrome lumbar area. Lumbar spondylosis with lumbar facet arthropathy. Bilateral sacroiliitis. Patient had no benefit after caudal epidural steroid injections ([facility] ) Recommend increase [place] to 10/325 every 6 hours (currently 5/325 every 6 hours ). Continue Neurontin 600 mg 3 times a day continue Flexeril 10 mg 3 times a day. Patient will be good candidate to have the diagno stic medial branch block lumbar area L3 to S1 , and this can be done as an outpatient. Treatment plan discussed with the patient and she agreed with the preceding Time with Patient: Greater than 30 PQRS Measure Charge Sheet Measure #130: Documentation of Current Meds in Medical Chart: Patient's medicati ons documented in chart PQRS Narrative: Smoking Status Former smoker Do You Want the Pneumonia Vaccine Up to Date Vaccine AT THIS TIME? Blood Pressure [Right Arm] 126/64 Blood Pressure 124/97 Pain Intensity [Lower Back] 0 Pain Intensity 10 Pain Scale Used Numeric (1 - 10) Scale Used Numeric (1 - 10) Home Medications: Ambulatory Orders Levothyroxine Sodium [Synthroid] 125 mcg PO DAILY 11/27/15 Insulin NPL/Insulin Lispro [humaLOG MIX 75-25 VIAL] See Protocol SQ AC-TID PRN 12/03/16 Gabapentin 600 mg PO TID 08/06/18 Isosorbide Mononitrate ER [Imdur] 30 mg PO DAILY 08/06/18 Aspirin EC [Ecotrin Low Dose] 81 mg PO DAILY 09/09/18 Bumetanide [BUMEX] 1 mg PO TID 09/09/18 HYDROcodone/APAP 5-325MG [[place] 5-325] 1 tab PO Q6HR PRN #10 tab 09/09/18 Insulin NPL/Insulin Lispro [humaLOG MIX 75-25 VIAL] 5 units SQ AC-TID 09/09/18 Losartan [Cozaar] 50 mg PO DAILY 09/09/18 Cyclobenzaprine [Flexeril] 10 mg PO TID PRN 09/30/18 Ciprofloxacin HCl [Cipro] 500 mg PO BID 10/02/18
[2018-10-05 16:35] LABS: Glucose,Whole Blood 202 mg/dL (75-99)
[2018-10-05 18:17] LABS: Iron Saturation 5.54 (12.00-45.00)
[2018-10-05 20:31] LABS: Glucose,Whole Blood 150 mg/dL (75-99)
[2018-10-05] MEDS: HYDROcodone/APAP 10-325MG 1 EACH TAB PO PRN (20:52)
[2018-10-06] MEDS: LEVOTHYROXINE 125 MCG TAB PO SCH (05:12)
[2018-10-06] MEDS: HYDROcodone/APAP 10-325MG 1 EACH TAB PO PRN ×2 (05:12→12:38)
[2018-10-06 07:07] LABS: Glucose,Whole Blood 117 mg/dL (75-99)
[2018-10-06] MEDS: INSULIN ASPART (NovoLOG) 100 UNIT/ML VIAL SQ SCH ×4 (07:12→21:37)
[2018-10-06 07:35] LABS: Magnesium 1.9 mg/dL (1.6-2.3); Potassium 4.7 mmol/L (3.5-5.1)
[2018-10-06] MEDS: ENOXAPARIN 40 MG/0.4 ML SYRINGE SQ SCH (08:00)
[2018-10-06] MEDS: GABAPENTIN 300 MG CAP PO SCH ×3 (08:00→21:38)
[2018-10-06] MEDS: ASPIRIN 81 MG PO SCH (08:00)
[2018-10-06] MEDS: INSULN ASP PRT/INSULIN ASPART 100 UNIT/ML 10 ML VIAL SQ SCH ×3 (08:01→17:20)
[2018-10-06] MEDS: ISOSORBIDE MONONITRATE ER 30 MG TAB.ER.24H PO SCH (08:01)
[2018-10-06] MEDS: HYDROmorphone 0.5 MG/0.5 ML SYRINGE IVP PRN ×3 (08:01→20:46)
[2018-10-06 11:58] LABS: Glucose,Whole Blood 144 mg/dL (75-99)
[2018-10-06] MEDS ORDERED: BUMETANIDE 1 MG TAB PO ONE (12:02)
--- NOTE | 2018-10-06 12:04 | P.PN ---
Subjective Patient is seen in follow-up for acute kidney injury. Renal function is improving. Creatinine 1.14 today. Urine output is good. Feels bloated. Vital signs are stable. General: The patient appeared well nourished and normally developed. HEENT: Head exam is unremarkable. Neck is without jugular venous distension. LUNGS: Lungs are clear to auscultation and percussion. Breath sounds decreased. HEART: Rate and Rhythm are regular. First and second heart sounds normal. No murmurs, rubs or gallops. ABDOMEN: Abdominal exam reveals normal bowel sounds. Non-tender and non- distended. No evidence of peritonitis. EXTREMITITES: No clubbing, cyanosis, or edema. Objective - Vital Signs Vital signs: Vital Signs Temp 98 F 10/06/18 07:00 Pulse 92 10/06/18 08:00 Resp 12 10/06/18 08:00 BP 192/71 10/06/18 07:00 Pulse Ox 96 10/06/18 01:23 Intake & Output 10/05/18 10/06/18 10/06/18 18:59 06:59 18:59 Intake Total 480 240 Balance 480 240 Intake: Oral 480 240 Other: Voiding Method Toilet # Voids 1 2 - Labs CBC & Chem 7: 10/05/18 07:44 10/06/18 06:55 Labs: Abnormal Lab Results - Last 24 Hours (Table) 10/05/18 10/05/18 10/05/18 Range/Units 07:44 12:06 16:34 Chloride (98-107) mmol/L BUN (7-17) mg/dL Creatinine (0.52-1.04) mg/dL Glucose (74-99) mg/dL POC Glucose (mg/dL) 131 H 202 H (75-99) mg/dL Iron 20 L (50-170) ug/dL Iron Saturation 5.54 L (12.00-45.00) 10/05/18 10/06/18 10/06/18 Range/Units 20:31 06:55 07:03 Chloride 109 H (98-107) mmol/L BUN 39 H (7-17) mg/dL Creatinine 1.14 H (0.52-1.04) mg/dL Glucose 105 H (74-99) mg/dL POC Glucose (mg/dL) 150 H 117 H (75-99) mg/dL Iron (50-170) ug/dL Iron Saturation (12.00-45.00) 10/06/18 Range/Units 11:56 Chloride (98-107) mmol/L BUN (7-17) mg/dL Creatinine (0.52-1.04) mg/dL Glucose (74-99) mg/dL POC Glucose (mg/dL) 144 H (75-99) mg/dL Iron (50-170) ug/dL Iron Saturation (12.00-45.00) Assessment and Plan Plan: Assessment: 1. Acute kidney injury mostly prerenal secondary to intravascular volume depletion from diuretics. Creatinine 2.14 on admission and is down to 1.14 today. Baseline creatinine near 1. UA is completely benign. No evidence of hydronephrosis noted on imaging. 2. Right-sided flank pain likely musculoskeletal. No evidence of nephrolithiasis or hydronephrosis noted on imaging. 3. Anemia. Iron deficiency noted. 4. Metabolic acidosis secondary to acute kidney injury. Better. 5. Diabetes mellitus. Plan: Bumex 1 mg once today. IV iron 3 doses. First dose today. Repeat electrolytes in the morning.
[2018-10-06] MEDS: SODIUM FERRIC GLUCONAT-SUCROSE 125 MG in SODIUM CHLORIDE 0.9% 100 ML IVPB SCH (12:38)
[2018-10-06 16:59] LABS: Glucose,Whole Blood 168 mg/dL (75-99)
[2018-10-06] MEDS: oxyCODONE-APAP 10-325MG 1 EACH TAB PO PRN ×2 (18:06→23:42)
[2018-10-06 21:26] LABS: Glucose,Whole Blood 144 mg/dL (75-99)
[2018-10-06] MEDS: SODIUM CHLORIDE 0.9% 1,000 ML IV SCH (23:45)
[2018-10-07] MEDS: LEVOTHYROXINE 125 MCG TAB PO SCH (05:31)
[2018-10-07] MEDS: oxyCODONE-APAP 10-325MG 1 EACH TAB PO PRN ×3 (05:31→20:41)
[2018-10-07 06:52] LABS: Glucose,Whole Blood 115 mg/dL (75-99)
--- NOTE | 2018-10-07 07:53 | P.PN ---
Subjective Principal diagnosis: Low back pain This a continue present on a 72-year-old white female essentially admitted for intractable back pain. She is had history of opiate dependency in the past. She is currently on Dilaudid and [place]. Appreciate pain management and multiple consultants including neurology services for possible renal colic. At this time, this is not the mode of thinking. She has struggled with back pain in the past. Surgical evaluation has deemed her initially not a surgical case because she's had previous work outside the area. The patient is now receiving iron via nephrology workup. Objective - Vital Signs Vital signs: Vital Signs Temp 98.4 F 10/07/18 07:11 Pulse 86 10/07/18 07:11 Resp 16 10/07/18 07:11 BP 125/64 10/07/18 07:11 Pulse Ox 96 10/07/18 07:11 Intake & Output 10/06/18 10/07/18 10/07/18 18:59 06:59 18:59 Other: Voiding Method Toilet Toilet # Voids 1 - Labs CBC & Chem 7: 10/05/18 07:44 10/06/18 06:55 Labs: Abnormal Lab Results - Last 24 Hours (Table) 10/06/18 10/06/18 10/06/18 Range/Units 11:56 16:57 21:23 POC Glucose (mg/dL) 144 H 168 H 144 H (75-99) mg/dL 10/07/18 Range/Units 06:51 POC Glucose (mg/dL) 115 H (75-99) mg/dL Assessment and Plan (1) Intractable pain Current Visit: Yes Status: Acute Code(s): R52 - PAIN, UNSPECIFIED SNOMED C ode(s): 15470643 (2) Right flank pain Current Visit: Yes Status: Acute Code(s): R10.9 - UNSPECIFIED ABDOMINAL PAIN SNOMED Code(s): 556795767 (3) Diabetes mellitus Current Visit: No Status: Acute Code(s): E11.9 - TYPE 2 DIABETES MELLITUS WITHOUT COMPLICATIONS SNOMED Code(s): 02881001 (4) History of lumbar fusion Current Visit: No Status: Acute Code(s): Z98.890 - OTHER SPECIFIED POSTPROCEDURAL STATES SNOMED Code(s): 447783692 (5) Radiculopathy with lower extremity symptoms Current Visit: No Status: Acute Code(s): M54.10 - RADICULOPATHY, SITE UNSPECIFIED SNOMED Code(s): 92365236 Plan: Continue iron supplementation. Check CBC and CMP today. Anticipate discharge in next 24 hours once cleared by pain management. Discharge planning for possible rehab/ECF. Time with Patient: Greater than 30
[2018-10-07] MEDS: SODIUM FERRIC GLUCONAT-SUCROSE 125 MG in SODIUM CHLORIDE 0.9% 100 ML IVPB SCH (08:00)
[2018-10-07] MEDS: HYDROmorphone 0.5 MG/0.5 ML SYRINGE IVP PRN ×2 (08:01→15:57)
[2018-10-07] MEDS: ENOXAPARIN 40 MG/0.4 ML SYRINGE SQ SCH (08:01)
[2018-10-07] MEDS: ISOSORBIDE MONONITRATE ER 30 MG TAB.ER.24H PO SCH (08:01)
[2018-10-07] MEDS: ASPIRIN 81 MG PO SCH (08:02)
[2018-10-07] MEDS: INSULN ASP PRT/INSULIN ASPART 100 UNIT/ML 10 ML VIAL SQ SCH ×3 (08:02→20:38)
[2018-10-07] MEDS: INSULIN ASPART (NovoLOG) 100 UNIT/ML VIAL SQ SCH ×4 (08:02→20:41)
[2018-10-07] MEDS: GABAPENTIN 300 MG CAP PO SCH ×3 (08:02→21:39)
[2018-10-07 08:16] LABS: Calcium 9.2 mg/dL (8.4-10.2); Magnesium 1.7 mg/dL (1.6-2.3); Potassium 4.5 mmol/L (3.5-5.1)
[2018-10-07] MEDS ORDERED: MAGNESIUM SULFATE-D5W PMX 1 GM in DEXTROSE/WATER 1 100ML.BAG IVPB ONE (11:14)
--- NOTE | 2018-10-07 11:14 | P.PN ---
Subjective Patient is seen in follow-up for acute kidney injury. Renal function is improving. Creatinine 0.98 today. Urine output is good. No active complaints at this time. Vital signs are stable. General: The patient appeared well nourished and normally developed. HEENT: Head exam is unremarkable. Neck is without jugular venous distension. LUNGS: Lungs are clear to auscultation and percussion. Breath sounds decreased. HEART: Rate and Rhythm are regular. First and second heart sounds normal. No murmurs, rubs or gallops. ABDOMEN: Abdominal exam reveals normal bowel sounds. Non-tender and non- distended. No evidence of peritonitis. EXTREMITITES: No clubbing, cyanosis, or edema. Objective - Vital Signs Vital signs: Vital Signs Temp 98.4 F 10/07/18 07:11 Pulse 86 10/07/18 08:00 Resp 16 10/07/18 08:00 BP 125/64 10/07/18 07:11 Pulse Ox 96 10/07/18 07:11 Intake & Output 10/06/18 10/07/18 10/07/18 18:59 06:59 18:59 Other: Voiding Method Toilet Toilet Toilet # Voids 1 - Labs CBC & Chem 7: 10/05/18 07:44 10/07/18 07:15 Labs: Abnormal Lab Results - Last 24 Hours (Table) 10/06/18 10/06/18 10/06/18 Range/Units 11:56 16:57 21:23 BUN (7-17) mg/dL Glucose (74-99) mg/dL POC Glucose (mg/dL) 144 H 168 H 144 H (75-99) mg/dL 10/07/18 10/07/18 Range/Units 06:51 07:15 BUN 32 H (7-17) mg/dL Glucose 104 H (74-99) mg/dL POC Glucose (mg/dL) 115 H (75-99) mg/dL Assessment and Plan Plan: Assessment: 1. Acute kidney injury mostly prerenal secondary to intravascular volume depletion from diuretics. Creatinine 2.14 on admission and is down to 0.98 today. Baseline creatinine near 1. UA is completely benign. No evidence of hydronephrosis noted on imaging. 2. Right-sided flank pain likely musculoskeletal. No evidence of nephrolithiasis or hydronephrosis noted on imaging. 3. Anemia. Iron deficiency noted. 4. Metabolic acidosis secondary to acute kidney injury. Better. 5. Diabetes mellitus. Plan: Bumex 1 mg daily. IV iron 3 doses. Second dose today.
[2018-10-07 11:43] LABS: Glucose,Whole Blood 152 mg/dL (75-99)
[2018-10-07] MEDS: BUMETANIDE 1 MG TAB PO SCH (12:24)
[2018-10-07 17:16] LABS: Glucose,Whole Blood 132 mg/dL (75-99)
[2018-10-07 20:14] LABS: Glucose,Whole Blood 187 mg/dL (75-99)
[2018-10-07] MEDS: SODIUM CHLORIDE 0.9% 1,000 ML IV SCH (21:39)
[2018-10-08] MEDS: HYDROmorphone 0.5 MG/0.5 ML SYRINGE IVP PRN (00:01)
[2018-10-08] MEDS: oxyCODONE-APAP 10-325MG 1 EACH TAB PO PRN ×2 (05:21→11:21)
[2018-10-08] MEDS: LEVOTHYROXINE 125 MCG TAB PO SCH (05:21)
[2018-10-08 07:33] LABS: Glucose,Whole Blood 105 mg/dL (75-99)
[2018-10-08] MEDS: INSULIN ASPART (NovoLOG) 100 UNIT/ML VIAL SQ SCH ×2 (07:40→11:21)
[2018-10-08] MEDS: INSULN ASP PRT/INSULIN ASPART 100 UNIT/ML 10 ML VIAL SQ SCH ×2 (07:51→12:39)
--- NOTE | 2018-10-08 08:06 | P.DS ---
Providers Date of admission: 10/04/18 17:27 Attending physician: Virgil Hdz Consults: 10/02/18 16:39 Consult Physician Routine Consulting Provider: Joselito Sherman Consult Reason/Comments: Flank pain/nephrolithiasis Do you want consulting provider notified?: Yes 10/02/18 16:40 Consult Physician Routine Consulting Provider: [facility]ROX[facility] FRANCO Consult Reason/Comments: Acute exacerbation chronic back pain Do you want consulting provider notified?: Yes 10/04/18 16:04 Consult Physician Routine Consulting Provider: Kameron Reyes Consult Reason/Comments: Acute on chronic renal failure Do you want consulting provider notified?: Yes Primary care physician: Virgil Hdz - Discharge Diagnosis(es) (1) Intractable pain Current Visit: Yes Status: Acute (2) Right flank pain Current Visit: Yes Status: Acute (3) Diabetes mellitus Current Visit: No Status: Acute (4) History of lumbar fusion Current Visit: No Status: Acute (5) Radiculopathy with lower extremity symptoms Current Visit: No Status: Acute Hospital Course: This discharge summary 72-year-old white female essentially admitted for intractable back pain. Multiple consultants were asked to see the patient because of her presentation including neurology because of possible renal colic. The patient was stabilized medically and nephrology with pain management was consulted. At this time, they are still considering possible rhizotomy but she will be discharged once cleared by consultants to follow-up with me in about one week. She is somewhat agreeable to possible rehab placement. Discharge planning is consulted to ascertain this. Patient Condition at Discharge: Fair Plan - Discharge Summary Discharge Rx Participant: No New Discharge Prescriptions: New oxyCODONE-APAP 10-325MG [Percocet 10-325 mg] 1 each PO Q6H PRN #120 tab PRN Reason: Pain Continue Levothyroxine Sodium [Synthroid] 125 mcg PO DAILY Insulin NPL/Insulin Lispro [humaLOG MIX 75-25 VIAL] See Protocol SQ AC-TID PRN PRN Reason: HIGH SUGAR Isosorbide Mononitrate ER [Imdur] 30 mg PO DAILY Gabapentin 600 mg PO TID Losartan [Cozaar] 50 mg PO DAILY Bumetanide [BUMEX] 1 mg PO TID Aspirin EC [Ecotrin Low Dose] 81 mg PO DAILY Insulin NPL/Insulin Lispro [humaLOG MIX 75-25 VIAL] 5 units SQ AC-TID Cyclobenzaprine [Flexeril] 10 mg PO TID PRN PRN Reason: Muscle Spasm Ciprofloxacin HCl [Cipro] 500 mg PO BID Discontinued HYDROcodone/APAP 5-325MG [[place] 5-325] 1 tab PO Q6HR PRN #10 tab PRN Reason: Pain Discharge Medication List Levothyroxine Sodium [Synthroid] 125 mcg PO DAILY 11/27/15 [History] Insulin NPL/Insulin Lispro [humaLOG MIX 75-25 VIAL] See Protocol SQ AC-TID PRN 12/03/16 [History] Gabapentin 600 mg PO TID 08/06/18 [History] Isosorbide Mononitrate ER [Imdur] 30 mg PO DAILY 08/06/18 [History] Aspirin EC [Ecotrin Low Dose] 81 mg PO DAILY 09/09/18 [History] Bumetanide [BUMEX] 1 mg PO TID 09/09/18 [History] Insulin NPL/Insulin Lispro [humaLOG MIX 75-25 VIAL] 5 units SQ AC-TID 09/09/18 [History] Losartan [Cozaar] 50 mg PO DAILY 09/09/18 [History] Cyclobenzaprine [Flexeril] 10 mg PO TID PRN 09/30/18 [History] Ciprofloxacin HCl [Cipro] 500 mg PO BID 10/02/18 [History] oxyCODONE-APAP 10-325MG [Percocet 10-325 mg] 1 each PO Q6H PRN #120 tab 10/08/18 [Rx] Follow up Appointment(s)/Referral(s): Virgil Hdz MD [Primary Care Provider] - 1 Week Discharge Disposition: TRANSFER TO SNF/F
[2018-10-08 09:19] VITALS: RESP 16
--- NOTE | 2018-10-08 09:58 | P.PN ---
Subjective Patient is seen in follow-up for acute kidney injury, which has resolved. Urine output is good. Denies chest pain or shortness of breath. No active complaints at this time. Vital signs are stable. General: The patient appeared well nourished and normally developed. HEENT: Head exam is unremarkable. Neck is without jugular venous distension. LUNGS: Lungs are clear to auscultation and percussion. Breath sounds decreased. HEART: Rate and Rhythm are regular. First and second heart sounds normal. No murmurs, rubs or gallops. ABDOMEN: Abdominal exam reveals normal bowel sounds. Non-tender and non- distended. No evidence of peritonitis. EXTREMITITES: No clubbing, cyanosis, or edema. Objective - Vital Signs Vital signs: Vital Signs Temp 98.4 F 10/08/18 08:09 Pulse 85 10/08/18 08:09 Resp 16 10/08/18 08:09 BP 148/67 10/08/18 08:09 Pulse Ox 95 10/08/18 08:09 Intake & Output 10/07/18 10/08/18 10/08/18 18:59 06:59 18:59 Intake Total 850 Balance 850 Intake: Oral 850 Other: Voiding Method Toilet Toilet # Voids 0 - Labs CBC & Chem 7: 10/05/18 07:44 10/07/18 07:15 Labs: Abnormal Lab Results - Last 24 Hours (Table) 10/07/18 10/07/18 10/07/18 Range/Units 11:33 17:15 20:12 POC Glucose (mg/dL) 152 H 132 H 187 H (75-99) mg/dL 10/08/18 Range/Units 07:19 POC Glucose (mg/dL) 105 H (75-99) mg/dL Assessment and Plan Plan: Assessment: 1. Acute kidney injury mostly prerenal secondary to intravascular volume depletion from diuretics. Creatinine 2.14 on admission and was down to 0.90 does of yesterday. Baseline creatinine near 1. UA is completely benign. No evidence of hydronephrosis noted on imaging. 2. Right-sided flank pain likely musculoskeletal. No evidence of nephrolithiasis or hydronephrosis noted on imaging. 3. Anemia. Iron deficiency noted. 4. Metabolic acidosis secondary to acute kidney injury. Better. 5. Diabetes mellitus. Plan: Bumex 1 mg daily. IV iron 3 doses. Third dose today. Repeat electrolytes in the morning.
[2018-10-08] MEDS: BUMETANIDE 1 MG TAB PO SCH (10:41)
[2018-10-08] MEDS: ISOSORBIDE MONONITRATE ER 30 MG TAB.ER.24H PO SCH (10:41)
[2018-10-08] MEDS: ASPIRIN 81 MG PO SCH (10:41)
[2018-10-08] MEDS: SODIUM FERRIC GLUCONAT-SUCROSE 125 MG in SODIUM CHLORIDE 0.9% 100 ML IVPB SCH (10:41)
[2018-10-08] MEDS: GABAPENTIN 300 MG CAP PO SCH (10:41)
[2018-10-08] MEDS: ENOXAPARIN 40 MG/0.4 ML SYRINGE SQ SCH (10:41)
[2018-10-08 11:33] LABS: Glucose,Whole Blood 120 mg/dL (75-99)
[2018-10-08 13:53] VITALS: BP 160/75; PULSE 96; TEMP 98.1
== END 2018-10-08 15:00 | disposition home or self-care (01) | DRG 683 ==
LOC: EC 11:25 → 6PED 13:07 → 4SSUR 10-04 01:31 → OBSVTOIN 10-04 17:27
PROVIDERS: ADMIT Family Medicine; ATTEND Family Medicine
DX: N17.9 Acute kidney failure, unspecified (principal); I13.0 Hypertensive heart and chronic kidney disease with heart failure and stage 1 through stage 4 chronic kidney disease, or unspecified chronic kidney disease; E87.2 Acidosis; E11.42 Type 2 diabetes mellitus with diabetic polyneuropathy; E11.22 Type 2 diabetes mellitus with diabetic chronic kidney disease; I50.9 Heart failure, unspecified; E86.9 Volume depletion, unspecified; D64.9 Anemia, unspecified; T50.1X5A Adverse effect of loop [high-ceiling] diuretics, initial encounter; M96.1 Postlaminectomy syndrome, not elsewhere classified; M51.16 Intervertebral disc disorders with radiculopathy, lumbar region; M46.1 Sacroiliitis, not elsewhere classified; N18.9 Chronic kidney disease, unspecified; E61.1 Iron deficiency; E78.5 Hyperlipidemia, unspecified; G89.29 Other chronic pain; E89.0 Postprocedural hypothyroidism; I25.10 Atherosclerotic heart disease of native coronary artery without angina pectoris; F11.21 Opioid dependence, in remission; Z79.82 Long term (current) use of aspirin; Z79.4 Long term (current) use of insulin; Z79.890 Hormone replacement therapy; Z79.899 Other long term (current) drug therapy; Z98.1 Arthrodesis status; Z87.442 Personal history of urinary calculi; Z86.718 Personal history of other venous thrombosis and embolism; Z86.19 Personal history of other infectious and parasitic diseases; Z90.49 Acquired absence of other specified parts of digestive tract; Z95.1 Presence of aortocoronary bypass graft; Z95.0 Presence of cardiac pacemaker; Z87.891 Personal history of nicotine dependence; Z80.42 Family history of malignant neoplasm of prostate; Z82.49 Family history of ischemic heart disease and other diseases of the circulatory system; Z83.3 Family history of diabetes mellitus; Z83.49 Family history of other endocrine, nutritional and metabolic diseases; Z82.61 Family history of arthritis; Z80.0 Family history of malignant neoplasm of digestive organs; Z83.2 Family history of diseases of the blood and blood-forming organs and certain disorders involving the immune mechanism; Z80.8 Family history of malignant neoplasm of other organs or systems; Z84.1 Family history of disorders of kidney and ureter
CPT/HCPCS: 36415; 74176; 80048; 80053; 81003; 82150; 82550; 82728; 83036; 83540; 83550; 83605; 83690; 83735; 85025; 87086; 93005; 96361; 96374; 96375; 99285

== ENCOUNTER 2018-10-27 07:27 | Day surgery (SDC) | payer MEDICARE, OTHER ==
[2018-10-22 16:17] VITALS: BMI 34.0
[2018-10-27] MEDS ORDERED: SODIUM CHLORIDE 0.9% 500 ML 450 ML IV ONE (07:51)
[2018-10-27 07:56] VITALS: RESP 16; TEMP 98.1
[2018-10-27 07:57] LABS: Glucose,Whole Blood 157 mg/dL (75-99)
[2018-10-27] MEDS ORDERED: IV FLUID CONTINUATION 400 ML IV ONE (08:22)
--- NOTE | 2018-10-27 08:27 | FL ---
EXAMINATION TYPE: FL guided pain mgmt statistic DATE OF EXAM: 10/27/2018 CLINICAL HISTORY: Low back pain. TECHNIQUE: Fluoroscopy. COMPARISON: None. FINDINGS: Fluoroscopic guidance was provided during pain relief procedure performed by Dr. Tovar . A total of 4 seconds of fluoroscopic time was utilized during the procedure and single spot fluorosc opic image is acquired. Single image acquired shows needle localization at several levels in the lum bar spine bilaterally. IMPRESSION: As Above.
[2018-10-27 08:38] VITALS: BP 112/45; PULSE 69
--- NOTE | 2018-10-27 15:05 | P.PCN ---
Date of Procedure: 10/27/18 Surgeon: Noé Tovar Description of Procedure: PREOPERATIVE DIAGNOSIS : Lumbar spondylosis with Facet Arthropathy without myelopathy POSTOPERATIVE DIAGNOSIS: same PROCEDURE: Diagnostic lumbar medial branch block with fluoroscopy at bilateral L3 4, L4 5, L5-S1 ANESTHESIA: Local anesthetic; 2 mg of midazepam and 100 migrams of fentanyl Surgeon: Noé Tovar MD PROCEDURE INDICATION: This very pleasant 72-year-old woman with a history of intractable low back pain who presents today for interventional procedure to hopefully help reduce her pain. PROCEDURE DESCRIPTION: the patient was seen and identified in the preop holding area , risks and benefits and possible complications of the procedure and alternative were discussed with the patient, and the patient agreed to proceed with the procedure and signed the consent IV was started and vital signs monitored during the procedure and fluoroscopy was used to maximize the benefit and accuracy of the needle placement, and sedation was given to decrease patient anxiety, patient was taken to the procedure room and placed in prone position vital signs monitored in the back prepped. Under strict sterile technique using a right oblique fluoroscopy ,the junction of the transverse process and the superior articulating process of the bilateral L3- 4 , L4- 5, and L5-S1 vertebra which corresponding to the fluoroscopy image of the eye of the Tyler dog on the block side for the medial branches and subsequently , after local infiltration of skin and subcutaneous tissues with lidocaine 1% one mL at each level ,then one 25-gauge Quincke-type needles was placed at the junction of the base of the transverse process and the superior articular process at the appropriate level, and the needle was advanced until the periosteum contacted, needle placement confirmed with AP oblique and lateral view and after appropriate needle placement confirmed, and after negative aspiration, 0.5 mL of Marcaine 0.5% mixed with 40 mg depomedrol in divided doses was injected at each level and the needle subsequently removed and then the procedure was repeated on the contralateral side . At the end of the procedure and the needles removed and a bandage applied after the skin was cleaned the cleaning solution patient taken to recovery room in stable condition and monitors in the recovery room for 20-30 minutes and discharged home in stable condition after discharge criteria met and patient will follow up with the pain clinic in 2-4 weeks EBL: Minimal COMPLICATION: None.
== END 2018-10-27 08:52 | disposition home or self-care (01) ==
LOC: ORPAIN 07:27
PROVIDERS: ATTEND Pain Medicine Pain Medicine
DX: M47.816 Spondylosis without myelopathy or radiculopathy, lumbar region (principal); I25.10 Atherosclerotic heart disease of native coronary artery without angina pectoris; I13.0 Hypertensive heart and chronic kidney disease with heart failure and stage 1 through stage 4 chronic kidney disease, or unspecified chronic kidney disease; I50.9 Heart failure, unspecified; N18.9 Chronic kidney disease, unspecified; E11.22 Type 2 diabetes mellitus with diabetic chronic kidney disease; E78.5 Hyperlipidemia, unspecified; Z86.718 Personal history of other venous thrombosis and embolism; Z95.0 Presence of cardiac pacemaker; E89.0 Postprocedural hypothyroidism; Z98.42 Cataract extraction status, left eye; Z80.42 Family history of malignant neoplasm of prostate; Z82.49 Family history of ischemic heart disease and other diseases of the circulatory system; Z80.8 Family history of malignant neoplasm of other organs or systems; Z79.82 Long term (current) use of aspirin; Z79.890 Hormone replacement therapy; Z79.899 Other long term (current) drug therapy; Z79.4 Long term (current) use of insulin; Z79.891 Long term (current) use of opiate analgesic
CPT/HCPCS: 64493; 64494; 64495; J2250; J1030; J3010; 99152

== ENCOUNTER → 2018-11-03 | Outpatient (CLI) | payer MEDICARE, OTHER ==
[2018-11-03 14:20] VITALS: BP 165/65; PULSE 81; RESP 16
--- NOTE | 2018-11-03 21:07 | P.PAINPG ---
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, lumbar spondylosis with lumbar facet arthropathy and bilateral sacroiliitis, a few weeks ago patient had diagnostic medial branch block lumbar area L3 to S1, and she reported that her pain increased after the diagnostic medial branch block and she had 0 benefit from, and she continued to have severe low back pain that interfere with the quality of life, she is currently on pain medication Percocet 10/325 every 6 hours and Neurontin 600 mg 3 times a day, she denies any side effects of the medication she denies any excessive drowsiness or sleepiness and she reported the current pain medication is not helping enough to control her pain, she denies any motor or sensory deficit, she denies any fever or night sweats, she denies any change in the bowel movement or urination, intensity of the pain 7/10 and increases with any activity to 10 over 10, the intensity of the pain interfering with her quality of life. Objective - Vital Signs Vital signs: Vital Signs Temp Pulse 81 11/03/18 14:14 Resp 16 11/03/18 14:14 BP 165/65 11/03/18 14:14 Pulse Ox 100 11/03/18 14:14 Intake & Output 11/03/18 11/03/18 11/04/18 06:59 18:59 06:59 Weight 99.79 kg - Exam Physical Examinations : -Constitutiona : Cooperative , not in acute distress . -HEENT : nech ; supple , no Lymphadenopathy , normal thyroid size . eyes : no ptosis , no icterus, no photophobia . ENT : normal of hearing , normal oropharynx , no Thrush . - Respiratory : Chest clear to auscultations Bilaterally , no wheezing , no Rhonchi . - Cardiovascula : regular rate and rhythem , S1 , S2 , no S3 , no S4. - Gastrointestina : abdomen soft no tenderness , bowel sounds , no organomegally . - Genitourinary : Defferred . - neurologic : Cranial nerve II to XII intact , no focal neurological deffecit . -psychatric : alert , oriented X 3 , appropriate affect , intact judgment and insight . -Lymphatic : no Lymphadenopathy . - musculoskeltal : . Lumber spine moter stegnth lower extremities ,thigh and legs 5/5 Right side , 5/5 Left side deep tendon reflexes : normal Knee Jerk , normal ankle Jerk positive lumber facet Loading Test Range of motion of the lumbar spine Flexion 30 degrees, extension 10 degrees strait leg raising test , positive at 30 degree [place] test positive RT and positive LT . Sever tenderness over the Sacroiliac joint on the R and L sides [place] test positive bilaterally. Seated flexion test positive bilaterally. Assessment and Plan Plan: Assessment and plan= postlaminectomy pain syndrome lumbar area. Lumbar spondylosis with lumbar facet arthropathy without myelopathy. Bilateral sacroiliitis. Patient had no benefit after caudal epidural steroid injection done at [facility]. Patient had no benefit after diagnostic medial branch block lumbar area. Patient could benefit from bilateral sacroiliac joint steroid injection, procedure risk and benefits and alternative, discussed with the patient and she agreed with proceeding Time with Patient: Less than 30 PQRS Measure Charge Sheet Measure #130: Documentation of Current Meds in Medical Chart: Patient's medications documented in chart Measure #226: Tobacco Use: Screen & Cessation Intervention: Pt not a tobacco user Measure #111: Pneumonia Vaccination: Pneumococcal vaccine NOT administered or previously given Measure #47: Advance Care Plan: Advance care planning discussed & documented, pt chose/unable to give Measure #412: Opioid Treatment Agreement: No documentation of signed opioid treatment agreement Measure #408: Opioid Therapy Follow-up Evaluation: Patient had NO f/u eval minimum every 3 months during opioid therapy Measure #317: Preventitive Care & Scrn High Bld Press & F/U: Pre-hypertensive or hypertensive BP documented, pt will f/u with PCP Measure #128: Body Mass Index (BMI) Screening & Follow-up: BMI documented ABOVE normal parameters - f/u documented Measure #131: Pain Assessment & Follow-up: Pain positive & plan documented, Follow-up scheduled Measure #431: Unhealthy Alcohol Use Preventative Care & Scrn: Patient not identified as an unhealthy alcohol user PQRS Narrative: Smoking Status Former smoker Blood Pressure 165/65 Pain Intensity [Generalized] 10 Scale Used Numeric (1 - 10) Hx Alcohol Use (MH) No Home Medications: Ambulatory Orders Levothyroxine Sodium [Synthroid] 125 mcg PO DAILY 11/27/15 Insulin NPL/Insulin Lispro [humaLOG MIX 75-25 VIAL] See Protocol SQ AC-TID PRN 12/03/16 Gabapentin 600 mg PO TID 08/06/18 Isosorbide Mononitrate ER [Imdur] 30 mg PO DAILY 08/06/18 Aspirin EC [Ecotrin Low Dose] 81 mg PO DAILY 09/09/18 Bumetanide [BUMEX] 1 mg PO TID 09/09/18 Insulin NPL/Insulin Lispro [humaLOG MIX 75-25 VIAL] 5 units SQ AC-TID 09/09/18 Losartan [Cozaar] 50 mg PO DAILY 09/09/18 oxyCODONE-APAP 10-325MG [Percocet 10-325 mg] 1 each PO Q6H PRN #120 tab 10/08/18 Controlled Substance Measures - Controlled Substance Measures Is patient prescribed a controlled substance at discharge?: No
== END | disposition home or self-care (01) ==
LOC: PNWHC3 13:57
PROVIDERS: ATTEND Specialist
DX: M96.1 Postlaminectomy syndrome, not elsewhere classified (principal); M47.816 Spondylosis without myelopathy or radiculopathy, lumbar region; M46.96 Unspecified inflammatory spondylopathy, lumbar region; M46.1 Sacroiliitis, not elsewhere classified; Z98.890 Other specified postprocedural states; Z79.4 Long term (current) use of insulin; Z79.82 Long term (current) use of aspirin; Z79.891 Long term (current) use of opiate analgesic; Z79.899 Other long term (current) drug therapy; Z87.891 Personal history of nicotine dependence
CPT/HCPCS: 99211

== ENCOUNTER 2018-11-10 07:20 | Day surgery (SDC) | payer MEDICARE ==
[2018-11-05 09:44] VITALS: BMI 34.0
[~2018-11-10 07:20] MED LIST changes: -DEXAMETHASONE SOD PHOSPHATE 10 MG/ML 1 ML VIAL IV ONE; -HYDROmorphone 1 MG/ML 1 ML SYRINGE IVP PRN; -LIDOCAINE 1% 20 ML VIAL (10MG/ML) FOR IV START INTRADERMA PRN; -MIDAZOLAM 2 MG/2 ML VIAL IV PRN; -ONDANSETRON 4 MG/2 ML VIAL IVP ONE; -SCOPOLAMINE 1.5MG/72HR PATCH TRANSDERM ONE
[2018-11-10 07:42] VITALS: RESP 16; TEMP 98.1
--- NOTE | 2018-11-10 08:41 | P.PCN ---
Date of Procedure: 11/10/18 Procedure(s) Performed: Procedure= Bilateral sacral iliac joints steroid injection under fluoroscopy g uidance Preoperative diagnosis= 1-sacroiliitis 2-. Failed Back surgery syndrome lumbar area 3-lumbar spondylosis with facet arthropathy Postoperative diagnosis= same as preop diagnosis Complication = none Condition= stable Anesthesia= moderate sedation with intravenous Versed 2 mg , and fentanyl 100 micrograms and local infiltration with lidocaine 1% 4 mL Indication for the procedure= patient complaining of low back pain , examination was positive for severe tenderness over the sacroiliac joints bilaterally and patient diagnosed with sacroiliitis, for this reason he/ she was good candidate for sacroiliac joint steroid injection. Description of the procedure= procedure risk and benefits discussed with the patient, including but not limited, risk of infection and bleeding, and ALLERGIC reaction to the medication and not complete pain relief and patient agreed with the preceding patient taken to the operating room, placed in prone position or standard monitors applied to the patient then after induction of anesthesia back prepped with chlorhexidine 3 times , Then under strict sterile technique, first I did the right sacroiliac joint the which was identified under fluoroscopy guidance been local infiltration of the skin and subcu interstitial with lidocaine 1% then 22-gauge Quincke Needle advanced slowly under fluoroscopy and placed in the right sacroiliac joint needle placement confirmed with AP and oblique and lateral view and after appropriate needle placement confirmed and after negative aspiration, or heme , then Ropivacaine 0.5% 3 mL, and 20 mg of Depo-Medrol mixed together and injected in the right sacroiliac joint after negative aspiration patient tolerated the procedure well without any complication. Then the left sacroiliac joint steroid injection done under strict sterile technique local infiltration of the skin and subcu interstitial at the location of the left sacroiliac joint then a 22-gauge Quincke Needle advanced slowly under fluoroscopy time placed in the left sacroiliac joint, needle placement confirmed with AP and oblique and lateral view then after appropriate needle placement confirmed and after negative aspiration 0.5% Marcaine 3 mL and 20 mg of Depo-Medrol injected in the left sacroiliac joint after negative aspiration patient tolerated the procedure well that any complications and she will follow up in clinic 3 weeks
--- NOTE | 2018-11-10 09:04 | FL ---
EXAMINATION TYPE: FL guided pain mgmt statistic DATE OF EXAM: 11/10/2018 HISTORY: BI LAT SI INJ BI LAT SI IN. 4 seconds of fluoroscopic time was provided by the department of radiology.
[2018-11-10 09:09] LABS: Glucose,Whole Blood 202 mg/dL (75-99)
[2018-11-10 09:12] VITALS: BP 115/63; PULSE 66
[2018-11-11 08:30] LABS: Glucose,Whole Blood 192 mg/dL (75-99)
== END 2018-11-10 10:01 | disposition home or self-care (01) ==
LOC: ORPAIN 07:20
PROVIDERS: ATTEND Specialist
DX: M96.1 Postlaminectomy syndrome, not elsewhere classified (principal); M46.1 Sacroiliitis, not elsewhere classified; M47.896 Other spondylosis, lumbar region; E11.9 Type 2 diabetes mellitus without complications; Z95.0 Presence of cardiac pacemaker
CPT/HCPCS: J2250; J1030; J3010; G0260; 99152

== ENCOUNTER 2018-12-06 14:11 | Emergency (ER) | payer MEDICARE, OTHER ==
[2018-12-06] MEDS ORDERED: MORPHINE SULFATE 4 MG/ML SYRINGE IVP STA (16:03)
[2018-12-06 16:47] VITALS: PULSE 67; RESP 18; TEMP 98.3
--- NOTE | 2018-12-06 16:54 | ED ---
Back Pain HPI - General Chief Complaint: Back Pain/Injury Stated Complaint: Back pain Time Seen by Provider: 12/06/18 15:55 Source: patient Limitations: no limitations - History of Present Illness Initial Comments: Patient is 73-year-old female presenting to emergency Department with low back pain. Patient reports a history of chronic back pain and multiple back surgeries spanning over 2 decades. Patient reports acutely pain started yesterday after she bent over and felt something "crack." Patient reports tempting to fall asleep as that typically relieves her pain but this time did not. Patient reports the pain is located in the lumbosacral region radiating bilaterally along the posterior aspect of the upper leg and ending in the popliteal region. Patient denies saddle paresthesias, urinary or bowel incontinence. No red flags. - Related Data Home Medications Medication Instructions Recorded Confirmed Levothyroxine Sodium [Synthroid] 125 mcg PO DAILY 11/27/15 11/10/18 Insulin NPL/Insulin Lispro See Protocol SQ AC-TID PRN 12/03/16 11/10/18 [humaLOG MIX 75-25 VIAL] Gabapentin 600 mg PO TID 08/06/18 11/10/18 Isosorbide Mononitrate ER [Imdur] 30 mg PO DAILY 08/06/18 11/10/18 Aspirin EC [Ecotrin Low Dose] 81 mg PO DAILY 09/09/18 11/10/18 Bumetanide [BUMEX] 1 mg PO TID 09/09/18 11/10/18 Insulin NPL/Insulin Lispro 5 units SQ AC-TID 09/09/18 11/10/18 [humaLOG MIX 75-25 VIAL] Losartan [Cozaar] 50 mg PO DAILY 09/09/18 11/10/18 Previous Rx's Medication Instructions Recorded oxyCODONE-APAP 10-325MG [Percocet 1 each PO Q6H PRN #120 tab 10/08/18 10-325 mg] Cephalexin [Keflex] 250 mg PO Q12HR #12 capsule 12/06/18 Cyclobenzaprine [Flexeril] 10 mg PO TID PRN #15 tab 12/06/18 Allergies Allergy/AdvReac Type Severity Reaction Status Date / Time No Known Allergies Allergy Verified 12/06/18 15:16 Review of Systems ROS Statement: Those systems with pertinent positive or pertinent negative responses have been documented in the HPI. ROS Other: All systems not noted in ROS Statement are negative. Past Medical History Past Medical History: Coronary Artery Disease (CAD), Heart Failure, Diabetes Mellitus, Deep Vein Thrombosis (DVT), Hyperlipidemia, Hypertension, Renal Disease, Thyroid Disorder Additional Past Medical History / Comment(s): neuropathy,lupus, back pain, BACK WOUND-Healed, USES CANE , CATARACT RT EYES History of Any Multi-Drug Resistant Organisms: VRE Date of last positivie culture/infection: 04/01/16 MDRO Source:: back Past Surgical History: Appendectomy, Back Surgery, Breast Surgery, Cholecystectomy, Coronary Bypass/CABG, Pacemaker Additional Past Surgical History / Comment(s): thyroidectomy. triple bypass 2000, CATARACT LT EYE 11/2016, LUE dialysis port Past Anesthesia/Blood Transfusion Reactions: No Reported Reaction Additional Past Anesthesia/Blood Transfusion Reaction / Comment(s): CLAUST ROPHOBIA. HAD A BLOOD TRANSFUSION 1968-NO REACTION. Type of Cardiac Device: Permanent Pacemaker Device Placement Date:: january 2018 Past Psychological History: No Psychological Hx Reported Smoking Status: Former smoker Past Alcohol Use History: None Reported Past Drug Use History: None Reported - Past Family History Father Family Medical History: Cancer Additional Family Medical History / Comment(s): prostate cancer Mother Family Medical History: Cancer, Congestive Heart Failure (CHF), Diabetes Mellitus, Hyperlipidemia, Hypertension, Osteoarthritis (OA) Additional Family Medical History / Comment(s): colon cancer Brother(s) Family Medical History: Coronary Artery Disease (CAD), Deep Vein Thrombosis (DVT) Additional Family Medical History / Comment(s): back surgery Sister(s) Family Medical History: Hyperlipidemia Additional Family Medical History / Comment(s): thyroid cancer General Exam Limitations: no limitations General appearance: alert, in no apparent distress, obese Head exam: Present: atraumatic, normocephalic, normal inspection Eye exam: Present: normal appearance, PERRL, EOMI Pupils: Present: normal accommodation ENT exam: Present: normal exam, normal oropharynx, mucous membranes moist, TM's normal bilaterally, normal external ear exam Neck exam: Present: normal inspection, full ROM Respiratory exam: Present: normal lung sounds bilaterally Cardiovascular Exam: Present: regular rate, normal rhythm, normal heart sounds Extremities exam: Present: normal inspection, full ROM Back exam: Present: normal inspection, paraspinal tenderness, vertebral tenderness (Lumbosacral). Absent: full ROM (Limited range of motion due to pain. Positive leg raise test), CVA tenderness (R), CVA tenderness (L), rash noted Neurological exam: Present: alert, oriented X3 Psychiatric exam: Present: normal affect, normal mood Skin exam: Present: warm, intact, normal color Course Vital Signs 12/06/18 12/06/18 12/06/18 15:14 16:46 20:29 Temperature 98 F 98.3 F Pulse Rate 69 67 67 Respiratory 16 18 18 Rate Blood Pressure 172/81 179/78 183/64 O2 Sat by Pulse 98 99 96 Oximetry Medical Decision Making - Medical Decision Making Patient is 73-year-old female presenting to emergency Department with low back pain. Labs are unremarkable. UA is indicative of a mild UTI which will be treated with antibiotics. Patient was given a letter to her patch, morphine and Dilaudid. CT of the vertebral and thoracic spine is indicative of spondylitis that has remained unchanged from her most recent imaging. Based on history, physical examination and imaging I suspect the patient to have an exacerbation of her chronic back pain. Patient will be discharged with Flexeril. Patient advised not to drive or operate heavy machinery when taking the medication. On reevaluation patient reports feeling better and is ready go home. Patient advised to follow-up with orthopedics for further management. Strict return parameters were thoroughly discussed with patient was understanding and agreeable. also examine the patient and is in agreement with the treatment plan. - Lab Data Result diagrams: 12/06/18 16:40 12/06/18 16:40 Lab Results 12/06/18 12/06/18 12/06/18 Range/Units 16:40 16:40 17:30 WBC 4.4 (3.8-10.6) k/uL RBC 4.59 (3.80-5.40) m/uL Hgb 11.8 D (11.4-16.0) gm/dL Hct 38.0 (34.0-46.0) % MCV 82.9 (80.0-100.0) fL MCH 25.8 (25.0-35.0) pg MCHC 31.1 (31.0-37.0) g/dL RDW 19.7 H (11.5-15.5) % Plt Count 191 (150-450) k/uL Neutrophils % (Manual) 59 % Lymphocytes % (Manual) 31 % Monocytes % (Manual) 9 % Eosinophils % (Manual) 1 % Neutrophils # (Manual) 2.60 (1.3-7.7) k/uL Lymphocytes # (Manual) 1.36 (1.0-4.8) k/uL Monocytes # (Manual) 0.40 (0-1.0) k/uL Eosinophils # (Manual) 0.04 (0-0.7) k/uL Nucleated RBCs 0 (0-0) /100 WBC Manual Slide Review Performed Anisocytosis Slight Microcytosis Slight Sodium 142 (137-145) mmol/L Potassium 3.9 (3.5-5.1) mmol/L Chloride 107 (98-107) mmol/L Carbon Dioxide 26 (22-30) mmol/L Anion Gap 9 mmol/L BUN 22 H (7-17) mg/dL Creatinine 0.89 (0.52-1.04) mg/dL Est GFR (CKD-EPI)AfAm 73 (>60 ml/min/1.73 sqM) Est GFR (CKD-EPI)NonAf 64 (>60 ml/min/1.73 sqM) Glucose 161 H (74-99) mg/dL POC Glucose (mg/dL) (75-99) mg/dL POC Glu Marketing Account Manager ID Calcium 9.2 (8.4-10.2) mg/dL Total Bilirubin 0.6 (0.2-1.3) mg/dL AST 34 (14-36) U/L ALT 20 (9-52) U/L Alkaline Phosphatase 87 (38-126) U/L Total Protein 7.1 (6.3-8.2) g/dL Albumin 4.1 (3.5-5.0) g/dL Urine Color Yellow Urine Appearance Clear (Clear) Urine pH 5.5 (5.0-8.0) Ur Specific [place] 1.012 (1.001-1.035) Urine Protein 1+ H (Negative) Urine Glucose (UA) Negative (Negative) Urine Ketones Negative (Negative) Urine Blood Small H (Negative) Urine Nitrite Negative (Negative) Urine Bilirubin Negative (Negative) Urine Urobilinogen <2.0 (<2.0) mg/dL Ur Leukocyte Esterase Moderate H (Negative) Urine RBC 2 (0-5) /hpf Urine WBC 7 H (0-5) /hpf Ur Squamous Epith Cells 5 H (0-4) /hpf Amorphous Sediment Rare H (None) /hpf Urine Bacteria Moderate H (None) /hpf Urine Mucus Rare H (None) /hpf 12/06/18 Range/Units 17:42 WBC (3.8-10.6) k/uL RBC (3.80-5.40) m/uL Hgb (11.4-16.0) gm/dL Hct (34.0-46.0) % MCV (80.0-100.0) fL MCH (25.0-35.0) pg MCHC (31.0-37.0) g/dL RDW (11.5-15.5) % Plt Count (150-450) k/uL Neutrophils % (Manual) % Lymphocytes % (Manual) % Monocytes % (Manual) % Eosinophils % (Manual) % Neutrophils # (Manual) (1.3-7.7) k/uL Lymphocytes # (Manual) (1.0-4.8) k/uL Monocytes # (Manual) (0-1.0) k/uL Eosinophils # (Manual) (0-0.7) k/uL Nucleated RBCs (0-0) /100 WBC Manual Slide Review Anisocytosis Microcytosis Sodium (137-145) mmol/L Potassium (3.5-5.1) mmol/L Chloride (98-107) mmol/L Carbon Dioxide (22-30) mmol/L Anion Gap mmol/L BUN (7-17) mg/dL Creatinine (0.52-1.04) mg/dL Est GFR (CKD-EPI)AfAm (>60 ml/min/1.73 sqM) Est GFR (CKD-EPI)NonAf (>60 ml/min/1.73 sqM) Glucose (74-99) mg/dL POC Glucose (mg/dL) 120 H (75-99) mg/dL POC Glu Marketing Account Manager ID [email or web address] Calcium (8.4-10.2) mg/dL Total Bilirubin (0.2-1.3) mg/dL AST (14-36) U/L ALT (9-52) U/L Alkaline Phosphatase (38-126) U/L Total Protein (6.3-8.2) g/dL Albumin (3.5-5.0) g/dL Urine Color Urine Appearance (Clear) Urine pH (5.0-8.0) Ur Specific [place] (1.001-1.035) Urine Protein (Negative) Urine Glucose (UA) (Negative) Urine Ketones (Negative) Urine Blood (Negative) Urine Nitrite (Negative) Urine Bilirubin (Negative) Urine Urobilinogen (<2.0) mg/dL Ur Leukocyte Esterase (Negative) Urine RBC (0-5) /hpf Urine WBC (0-5) /hpf Ur Squamous Epith Cells (0-4) /hpf Amorphous Sediment (None) /hpf Urine Bacteria (None) /hpf Urine Mucus (None) /hpf Disposition Clinical Impression: Mechanical back pain Disposition: HOME SELF-CARE Condition: Stable Instructions (If sedation given, give patient instructions): Acute Low Back Pain (ED) Additional Instructions: Please follow up orthopedics. Please take prescribed medication as directed. Please return to emergency department if symptoms worsen. Prescriptions: Cyclobenzaprine [Flexeril] 10 mg PO TID PRN #15 tab PRN Reason: Muscle Spasm Cephalexin [Keflex] 250 mg PO Q12HR #12 capsule Is patient prescribed a controlled substance at d/c from ED?: No Referrals: Virgil Hdz MD [Primary Care Provider] - 1-2 days Ramone Dinh MD [STAFF PHYSICIAN] - 1-2 days Time of Disposition: 20:01
--- NOTE | 2018-12-06 17:10 | CT ---
EXAMINATION TYPE: CT thor lumbar spine wo con DATE OF EXAM: 12/06/2018 COMPARISON: CT lumbar spine 03/05/2016 HISTORY: back pain. pt states hx of multiple back injuries. CT DLP: 1565 mGycm Automated exposure control for dose reduction was used. FINDINGS: There is removal of the posterior fusion hardware compared to old exam. There is mild thoracic dextroscoliosis. I see no compression fracture of the thoracic and lumbar spin e. There is vacuum disc at L2-3 and L3-4. Thoracic aorta is atheromatous. There is no thoracic parasp inal mass. There is hypertrophic spurring of the endplates throughout the thoracic and lumbar spine. I see no focal bone destruction. There is narrowing of disc spaces in thoracic and lumbar spine. IMPRESSION: SPONDYLOTIC CHANGES. MILD THORACIC DEXTROSCOLIOSIS. NO ACUTE BONY ABNORMALITY. THERE IS L3-4 4 MM SUB LUXATION UNCHANGED COMPARED TO OLD CT SCAN OF 03/05/2016. NO FRACTURE SEEN.
[2018-12-06] MEDS ORDERED: DIAZEPAM 5 MG/ML 2 ML INJ IVP STA (17:12)
[2018-12-06 17:26] LABS: Albumin 4.1 g/dL (3.5-5.0); Calcium 9.2 mg/dL (8.4-10.2); Potassium 3.9 mmol/L (3.5-5.1); Total Bilirubin 0.6 mg/dL (0.2-1.3); Total Protein 7.1 g/dL (6.3-8.2)
[2018-12-06] MEDS: LIDOCAINE 5% PATCH TOPICAL STA ×2 (17:33→19:33)
[2018-12-06 17:37] LABS: Anisocytosis Slight; MCH 25.8 pg (25.0-35.0); MCHC 31.1 g/dL (31.0-37.0); MCV 82.9 fL (80.0-100.0); Mean Platelet Volume 7.3; Microcytosis Slight; Platelet Count 191 k/uL (150-450); RBC 4.59 m/uL (3.80-5.40); RDW 19.7 % (11.5-15.5); WBC 4.4 k/uL (3.8-10.6)
[2018-12-06 17:39] LABS: HGB 11.8 gm/dL (11.4-16.0)
[2018-12-06 17:44] LABS: Glucose,Whole Blood 120 mg/dL (75-99)
[2018-12-06 17:55] LABS: Amorphous Sediment,Urine Rare /hpf; Appearance,Urine Clear (Clear); Bacteria,Urine Moderate /hpf; Bilirubin,Urine Negative (Negative); Blood,Urine Small (Negative); Color,Urine Yellow; Glucose,Urine (UA) Negative (Negative); Ketones,Urine Negative (Negative); Leukocyte Esterase,Urine Moderate (Negative); Mucus,Urine Rare /hpf; Nitrite,Urine Negative (Negative); PH, Urine 5.5 (5.0-8.0); Protein,Urine 1+ (Negative); RBC,Urine 2 /hpf (0-5); Specific Gravity,Urine 1.012 (1.001-1.035); Squamous Epithelial Cell,Urine 5 /hpf (0-4); Urobilinogen,Urine <2.0 mg/dL (<2.0); WBC,Urine 7 /hpf (0-5)
[2018-12-06] MEDS ORDERED: HYDROmorphone 1 MG/ML 1 ML SYRINGE IVP STA (17:57)
[2018-12-06 18:10] LABS: Eosinophils # (M) 0.04 k/uL (0-0.7); Lymphocytes # (M) 1.36 k/uL (1.0-4.8); Neutrophils % (M) 59 %; Nucleated Red Blood Cells 0 /100 WBC (0-0); Total Cells Counted 100
[2018-12-06] MEDS ORDERED: HYDROmorphone 1 MG/ML 1 ML SYRINGE IM STA (20:23)
[2018-12-06 20:30] VITALS: BP 183/64
== END 2018-12-06 20:31 | disposition home or self-care (01) ==
LOC: EC 14:11
DX: M54.5 Low back pain (principal); M79.604 Pain in right leg; M79.605 Pain in left leg; N39.0 Urinary tract infection, site not specified; M46.94 Unspecified inflammatory spondylopathy, thoracic region; I25.10 Atherosclerotic heart disease of native coronary artery without angina pectoris; I11.0 Hypertensive heart disease with heart failure; I50.9 Heart failure, unspecified; E11.40 Type 2 diabetes mellitus with diabetic neuropathy, unspecified; E07.9 Disorder of thyroid, unspecified; Z87.891 Personal history of nicotine dependence; Z79.4 Long term (current) use of insulin; Z79.82 Long term (current) use of aspirin; Z79.890 Hormone replacement therapy; Z79.899 Other long term (current) drug therapy; Z95.0 Presence of cardiac pacemaker; Z95.1 Presence of aortocoronary bypass graft; Z98.890 Other specified postprocedural states; Z82.61 Family history of arthritis
CPT/HCPCS: 36415; 80053; 85025; 81001; 72128; 72131; 99284; 96374; 96375 ×2; 96372; J2270; J3360; J1170

== ENCOUNTER 2019-01-26 14:07 | Observation (INO) | payer MEDICARE, OTHER ==
--- NOTE | 2019-01-26 14:28 | ED ---
Chest Pain HPI - General Chief Complaint: Chest Pain Stated Complaint: Chest pain Time Seen by Provider: 01/26/19 14:18 Source: EMS, RN notes reviewed, old records reviewed Mode of arrival: EMS Limitations: no limitations - History of Present Illness Initial Comments: This is a 73-year-old female the ER for evaluation shortness a for evaluation chest pain chest pain and swelling in her right shoulder right arm. No current insurance of breath or diaphoresis. She has history of H of fibrillation diabetes hypertension high cholesterol as well as history of DVT. Patient is currently on blood thinners. Denies fever cough or congestion no travel history. MD Complaint: chest pain -: hour(s) Onset: during rest Pain Location: substernal Pain Radiation: RUE Severity: mild Severity scale (1-10): 2 Quality: aching Consistency: constant Improves With: nothing Worsens With: nothing Context: other (None) Anginal Symptoms: other (None) Treatments Prior to Arrival: none - Related Data Home Medications Medication Instructions Recorded Confirmed Levothyroxine Sodium [Synthroid] 125 mcg PO DAILY 11/27/15 01/26/19 Insulin NPL/Insulin Lispro See Protocol SQ AC-TID PRN 12/03/16 01/26/19 [humaLOG MIX 75-25 VIAL] Gabapentin 600 mg PO TID 08/06/18 01/26/19 Isosorbide Mononitrate ER [Imdur] 30 mg PO DAILY 08/06/18 01/26/19 Aspirin EC [Ecotrin Low Dose] 81 mg PO DAILY 09/09/18 01/26/19 Bumetanide [BUMEX] 1 mg PO TID 09/09/18 01/26/19 Insulin NPL/Insulin Lispro 5 units SQ AC-TID 09/09/18 01/26/19 [humaLOG MIX 75-25 VIAL] Losartan [Cozaar] 50 mg PO DAILY 09/09/18 01/26/19 oxyCODONE-APAP 10-325MG [Percocet 1 tab PO Q6H PRN 01/26/19 01/26/19 10-325 mg] Allergies Allergy/AdvReac Type Severity Reaction Status Date / Time No Known Allergies Allergy Verified 01/26/19 14:26 Review of Systems ROS Statement: Those systems with pertinent positive or pertinent negative responses have been documented in the HPI. ROS Other: All systems not noted in ROS Statement are negative. EKG Findings - EKG Comments: EKG Findings:: EKG shows sinus rhythm rate of 89, MT 198, QRS 104, QTc 476 Past Medical History Past Medical History: Atrial Fibrillation, Coronary Artery Disease (CAD), Heart Failure, Diabetes Mellitus, Deep Vein Thrombosis (DVT), Hyperlipidemia, Hypertension, Renal Disease, Thyroid Disorder Additional Past Medical History / Comment(s): neuropathy,lupus, back pain, BACK WOUND-Healed, USES CANE , CATARACT RT EYES History of Any Multi-Drug Resistant Organisms: VRE Date of last positivie culture/infection: 04/01/16 MDRO Source:: back Past Surgical History: Appendectomy, Back Surgery, Breast Surgery, Cholecystectomy, Coronary Bypass/CABG, Pacemaker Additional Past Surgical History / Comment(s): thyroidectomy. triple bypass 2000, CATARACT LT EYE 11/2016, LUE dialysis port Past Anesthesia/Blood Transfusion Reactions: No Reported Reaction Additional Past Anesthesia/Blood Transfusion Reaction / Comment(s): CLAUSTROPHOBIA. HAD A BLOOD TRANSFUSION 1968-NO REACTION. Type of Cardiac Device: Permanent Pacemaker Device Placement Date:: january 2018 Past Psychological History: No Psychological Hx Reported Smoking Status: Former smoker Past Alcohol Use History: None Reported Past Drug Use History: None Reported - Past Family History Father Family Medical History: Cancer Additional Family Medical History / Comment(s): prostate cancer Mother Family Medical History: Cancer, Congestive Heart Failure (CHF), Diabetes Mellitus, Hyperlipidemia, Hypertension, Osteoarthritis (OA) Additional Family Medical History / Comment(s): colon cancer Brother(s) Family Medical History: Coronary Artery Disease (CAD), Deep Vein Thrombosis (DVT) Additional Family Medical History / Comment(s): back surgery Sister(s) Family Medical History: Hyperlipidemia Additional Family Medical History / Comment(s): thyroid cancer General Exam Limitations: no limitations General appearance: alert, in no apparent distress Head exam: Present: atraumatic, normocephalic, normal inspection Eye exam: Present: normal appearance, PERRL, EOMI. Absent: scleral icterus, conjunctival injection, periorbital swelling ENT exam: Present: normal exam, mucous membranes moist Neck exam: Present: normal inspection. Absent: tenderness, meningismus, lymphadenopathy Respiratory exam: Present: normal lung sounds bilaterally. Absent: respiratory distress, wheezes, rales, rhonchi, stridor Cardiovascular Exam: Present: regular rate, normal rhythm, normal heart sounds. Absent: systolic murmur, diastolic murmur, rubs, gallop, clicks GI/Abdominal exam: Present: soft, normal bowel sounds. Absent: distended, tenderness, guarding, rebound, rigid Extremities exam: Present: normal inspection, full ROM, normal capillary refill. Absent: tenderness, pedal edema, joint swelling, calf tenderness Back exam: Present: normal inspection Neurological exam: Present: alert, oriented X3, CN II-XII intact Psychiatric exam: Present: normal affect, normal mood Skin exam: Present: warm, dry, intact, normal color. Absent: rash Course Vital Signs 01/26/19 14:11 Temperature 98.2 F Pulse Rate 86 Respiratory 18 Rate Blood Pressure 105/88 O2 Sat by Pulse 99 Oximetry - Reevaluation(s) Reevaluation #1: 01/26/19 14:28 Medical records reviewed Reevaluation #2: 01/26/19 16:42 Patient still does complain of chest pain also started to complain of pain in both lower extremities - Consultations Consultation #1: Spoke with Dr. Wilder rolon for admission Chest Pain MDM - MDM 3 female the ER for evaluation right-sided chest pain we'll obtain VQ scan, patient be admitted for cardiology observation Disposition Clinical Impression: Atypical chest pain, Chest pain Disposition: ADMITTED IP TO THIS HOSP Condition: Good Is patient prescribed a controlled substance at d/c from ED?: No
[2019-01-26 14:44] LABS: Calcium 9.2 mg/dL (8.4-10.2); Total Bilirubin 0.7 mg/dL (0.2-1.3)
[2019-01-26 14:47] LABS: Anisocytosis Slight; Basophils % (A) 1 %; Eosinophils # (A) 0.1 k/uL (0-0.7); Eosinophils % (A) 2 %; HCT 34.4 % (34.0-46.0); HGB 11.2 gm/dL (11.4-16.0); INR 0.9 (<1.2); Lymphocytes # (A) 0.7 k/uL (1.0-4.8); Lymphocytes % (A) 12 %; MCH 28.7 pg (25.0-35.0); MCHC 32.6 g/dL (31.0-37.0); Mean Platelet Volume 8.1; Monocytes # (A) 0.3 k/uL (0-1.0); Monocytes % (A) 6 %; Neutrophils # (A) 4.3 k/uL (1.3-7.7); Neutrophils % (A) 77 %; Partial Thromboplastin Time 24.3 sec (22.0-30.0); Platelet Count 173 k/uL (150-450); Prothrombin Time 9.9 sec (9.0-12.0); RDW 17.1 % (11.5-15.5); WBC 5.5 k/uL (3.8-10.6)
[2019-01-26 14:57] LABS: Albumin 4.1 g/dL (3.5-5.0); Magnesium 1.9 mg/dL (1.6-2.3); Potassium 4.6 mmol/L (3.5-5.1); Total Protein 7.3 g/dL (6.3-8.2)
[2019-01-26 15:06] LABS: D-Dimer 1.29 mg/L FEU (<0.60)
[2019-01-26 15:08] LABS: MCV 88.1 fL (80.0-100.0)
--- NOTE | 2019-01-26 15:09 | XR ---
EXAMINATION TYPE: XR chest 2V DATE OF EXAM: 01/26/2019 COMPARISON: Chest x-ray 03/04/2016 HISTORY: Pain TECHNIQUE: Frontal and lateral views of the chest are obtained. FINDINGS: The pulmonary artery is enlarged. Patient is post median sternotomy and the intracardiac p acemaker leads are within the right atrium and ventricle. Heart is enlarged. There is no pneumothorax or pleural effusion. Eventration of the right hemidiaphragm is noted. No airspace disease. IMPRESSION: Correlate for pulmonary artery hypertension. Cardiomegaly. Postop changes.
[2019-01-26] MEDS ORDERED: MORPHINE SULFATE 4 MG/ML SYRINGE IVP PRN (15:35)
[2019-01-26] MEDS ORDERED: MORPHINE SULFATE 4 MG/ML SYRINGE IVP STA (15:35)
--- NOTE | 2019-01-26 16:13 | US ---
EXAMINATION TYPE: US venous doppler duplex LE DATE OF EXAM: 01/26/2019 4:06 PM COMPARISON: NONE CLINICAL HISTORY: dvt. swelling and redness bilaterally. Hx cellulitis. SIDE PERFORMED: Bilateral TECHNIQUE: The lower extremity deep venous system is examined utilizing real time linear array sonog johanna with graded compression, doppler sonography and color-flow sonography. VESSELS IMAGED: External Iliac Vein (EIV) Common Femoral Vein Deep Femoral Vein Greater Saphenous Vein * Femoral Vein Popliteal Vein Small Saphenous Vein * Proximal Calf Veins (* superficial vessels) Limited visualization due to patient body habitus Right Leg: Negative for DVT Left Leg: Negative for DVT Grayscale, color doppler, spectral doppler imaging performed of the deep veins of the lower extremiti es. There is normal flow, compressibility, vascular waveforms. IMPRESSION: No sonographic evidence of deep venous arthrosis within either of the visualized bilater al lower extremities.
[2019-01-26] MEDS ORDERED: NITROGLYCERIN SL TABS 0.4 MG TAB SUBLINGUAL PRN (16:27)
[2019-01-26] MEDS ORDERED: HEPARIN SODIUM,PORCINE 5,000 UNIT/ML 1 ML VIAL IV PRN (16:27)
[2019-01-26] MEDS ORDERED: ASPIRIN 81 MG PO STA (16:27)
[2019-01-26] MEDS ORDERED: HEPARIN SODIUM,PORCINE 5,000 UNIT/ML 1 ML VIAL IV ONE (16:27)
[2019-01-26] MEDS ORDERED: HEPARIN SOD,PORK IN 0.45% NACL 25,000 UNIT in 0.45% NACL 1 250ML.BAG IV SCH (16:30)
[2019-01-26] MEDS ORDERED: SODIUM CHLORIDE 0.9% 1,000 ML IV SCH (16:30)
[2019-01-26 17:19] LABS: Glucose,Whole Blood 153 mg/dL (75-99)
[2019-01-26 20:22] VITALS: RESP 18
--- NOTE | 2019-01-26 20:48 | NM ---
EXAMINATION TYPE: NM pul vent and perfuse DATE OF EXAM: 01/26/2019 HISTORY: Pain, elevated d-dimer, history DVT, bilateral lower extremity swelling TECHNIQUE: Utilizing inhalation of 38.9 mCi Tc 99m DTPA aerosol and intravenous injection of 4.7 mCi of Tc 99m MAA, ventilation and perfusion images are acquired post injection in multiple projections. COMPARISON: PA and lateral chest radiographs 01/26/2019 2:45 PM FINDINGS: The radiotracer distribution is mildly heterogeneous throughout the lungs on the perfusion and ventilation multiplanar images. There is no evidence of mismatched defects. IMPRESSION: Low probability for the diagnosis of pulmonary embolism.
[2019-01-26 20:53] LABS: Glucose,Whole Blood 170 mg/dL (75-99)
[2019-01-26] MEDS: METOPROLOL TARTRATE 25 MG TAB PO SCH (21:14)
[2019-01-26] MEDS: GABAPENTIN 300 MG CAP PO SCH (21:14)
[2019-01-26] MEDS: BUMETANIDE 1 MG TAB PO SCH (21:14)
[2019-01-27 06:28] LABS: Mean Platelet Volume 8.1; Platelet Count 173 k/uL (150-450)
[2019-01-27] MEDS ORDERED: LEVOTHYROXINE 125 MCG TAB PO SCH (06:30)
[2019-01-27 06:36] LABS: Cholesterol 215 mg/dL (<200); HDL Cholesterol 52 mg/dL (40-60); LDL Cholesterol,Calculated 141 mg/dL (0-99); Triglycerides 110 mg/dL (<150)
[2019-01-27 06:50] LABS: Glucose,Whole Blood 140 mg/dL (75-99)
--- NOTE | 2019-01-27 07:52 | P.CRDCN ---
History of Present Illness Consult date: 01/27/19 Chief complaint: Chest pain History of present illness: This is a pleasant 73-year-old female patient with a past medical history significant for coronary artery disease and status post coronary artery bypass grafting, the details on that are unknown at this point, the patient used to follow-up with the flatbed owner operator in [place] and currently she is not under the care of a flatbed owner operator in the area, chronic kidney disease, hypertension, dyslipidemia, and permanent pacemaker, presented to the hospital complaining of chest discomfort. She was in her usual state of health until yesterday when she was sitting at home and suddenly started experiencing discomfort in the mid of the chest, as a sharp kind of discomfort, without any radiation to the arm or neck or shoulders, and without any associated symptoms of shortness of breath, sweating, nausea, or syncope. The symptoms of chest discomfort lasted only for a few minutes. The time she arrived the emergency room she was chest pain-free. The EKG showed sinus tachycardia without any ischemic ST or T-wave abnormalities. The cardiac enzymes were checked and came in to be unremarkable. The d-dimer came in to elevated but subsequently the computed tomography scan of the chest showed no PE. On examination she does have a systolic murmur at the right upper sternal border. Currently the patient is chest pain-free. Past Medical History Past Medical History: Atrial Fibrillation, Coronary Artery Disease (CAD), Heart Failure, Diabetes Mellitus, Deep Vein Thrombosis (DVT), Hyperlipidemia, Hypertension, Renal Disease, Thyroid Disorder Additional Past Medical History / Comment(s): neuropathy,lupus, back pain, BACK WOUND-Healed, USES CANE , CATARACT bilat. History of Any Multi-Drug Resistant Organisms: VRE Date of last positivie culture/infection: 04/01/16 MDRO Source:: back Past Surgical History: Appendectomy, Back Surgery, Breast Surgery, Cholecystectomy, Coronary Bypass/CABG, Pacemaker Additional Past Surgical History / Comment(s): thyroidectomy. triple bypass 2000, CATARACT bilat EYE 11/2016, LUE dialysis port. 5 back sx. pt had 2 ablations in [place] for afib- unsuccessful. Past Anesthesia/Blood Transfusion Reactions: No Reported Reaction Additional Past Anesthesia/Blood Transfusion Reaction / Comment(s): CLAUSTROPHOBIA. HAD A BLOOD TRANSFUSION 1968-NO REACTION. Type of Cardiac Device: Permanent Pacemaker Device Placement Date:: january 2018 Past Psychological History: No Psychological Hx Reported Additional Psychological History / Comment(s): lives with grandson. independent and uses a cane. pt states she still drives. Smoking Status: Former smoker Past Alcohol Use History: None Reported Additional Past Alcohol Use History / Comment(s): STARTED SMOKING AT AGE 16 QUIT 2000 WAS SMOKING 3 PPD BY TIME SHE QUIT Past Drug Use History: None Reported - Past Family History Father Family Medical History: Cancer Additional Family Medical History / Comment(s): prostate cancer Mother Family Medical History: Cancer, Congestive Heart Failure (CHF), Diabetes Mellitus, Hyperlipidemia, Hypertension, Osteoarthritis (OA) Additional Family Medical History / Comment(s): colon cancer Brother(s) Family Medical History: Coronary Artery Disease (CAD), Deep Vein Thrombosis (DVT) Additional Family Medical History / Comment(s): back surgery Sister(s) Family Medical History: Hyperlipidemia Additional Family Medical History / Comment(s): thyroid cancer Medications and Allergies Home Medications Medication Instructions Recorded Confirmed Type Levothyroxine Sodium [Synthroid] 125 mcg PO DAILY 11/27/15 01/26/19 History Insulin NPL/Insulin Lispro See Protocol SQ AC-TID PRN 12/03/16 01/26/19 History [humaLOG MIX 75-25 VIAL] Gabapentin 600 mg PO TID 08/06/18 01/26/19 History Isosorbide Mononitrate ER [Imdur] 30 mg PO DAILY 08/06/18 01/26/19 History Aspirin EC [Ecotrin Low Dose] 81 mg PO DAILY 09/09/18 01/26/19 History Bumetanide [BUMEX] 1 mg PO TID 09/09/18 01/26/19 History Insulin NPL/Insulin Lispro 5 units SQ AC-TID 09/09/18 01/26/19 History [humaLOG MIX 75-25 VIAL] Losartan [Cozaar] 50 mg PO DAILY 09/09/18 01/26/19 History oxyCODONE-APAP 10-325MG [Percocet 1 tab PO Q6H PRN 01/26/19 01/26/19 History 10-325 mg] Allergies Allergy/AdvReac Type Severity Reaction Status Date / Time No Known Allergies Allergy Verified 01/26/19 14:26 Physical Exam Vitals: Vital Signs Temp Pulse Pulse Resp BP BP Pulse Ox 01/27/19 04:00 98.2 F 63 18 120/48 93 L 01/27/19 03:40 60 18 01/26/19 23:59 60 18 01/26/19 23:58 98.3 F 72 18 118/64 96 01/26/19 20:00 97.6 F 60 18 145/90 100 01/26/19 17:59 85 17 01/26/19 17:23 97.5 F L 85 17 138/49 97 01/26/19 17:00 98.5 F 01/26/19 16:51 85 18 107/49 98 01/26/19 14:11 98.2 F 86 18 105/88 99 Intake and Output 01/26/19 01/27/19 01/27/19 22:59 06:59 14:59 Intake Total 350 Balance 350 Intake: Intake, IV Titration 350 Amount cefTRIAXone 1 gm In 350 Sodium Chloride 0.9% 50 ml @ 100 mls/hr IVPB Q24H COUNTS INCLUDE 234 BEDS AT THE [facility] Rx#:[id number] Other: Voiding Method Toilet Toilet # Voids 1 - Constitutional General appearance: no acute distress - Respiratory Respiratory: bilateral: CTA - Cardiovascular Rhythm: regular Heart sounds: normal: S1, S2 Abnormal Heart Sounds: systolic murmur Results 01/27/19 06:14 01/26/19 14:25 Cardiac Enzymes 01/26/19 01/26/19 01/26/19 Range/Units 14:25 14:25 22:12 AST 44 H (14-36) U/L Troponin I 0.012 0.014 (0.000-0.034) ng/mL 01/27/19 Range/Units 01:52 AST (14-36) U/L Troponin I 0.017 (0.000-0.034) ng/mL Coagulation 01/26/19 01/26/19 01/27/19 Range/Units 14:25 22:12 06:14 PT 9.9 (9.0-12.0) sec APTT 24.3 50.1 H 49.0 H (22.0-30.0) sec Lipids 01/27/19 Range/Units 06:14 Triglycerides 110 (<150) mg/dL Cholesterol 215 H (<200) mg/dL HDL Cholesterol 52 (40-60) mg/dL CBC 01/26/19 01/27/19 Range/Units 14:25 06:14 WBC 5.5 (3.8-10.6) k/uL RBC 3.90 (3.80-5.40) m/uL Hgb 11.2 L (11.4-16.0) gm/dL Hct 34.4 (34.0-46.0) % Plt Count 173 173 (150-450) k/uL Comprehensive Metabolic Panel 01/26/19 Range/Units 14:25 Sodium 137 (137-145) mmol/L Potassium 4.6 (3.5-5.1) mmol/L Chloride 102 (98-107) mmol/L Carbon Dioxide 22 (22-30) mmol/L BUN 55 H (7-17) mg/dL Creatinine 1.49 H (0.52-1.04) mg/dL Glucose 200 H (74-99) mg/dL Calcium 9.2 (8.4-10.2) mg/dL AST 44 H (14-36) U/L ALT 22 (9-52) U/L Alkaline Phosphatase 86 (38-126) U/L Total Protein 7.3 (6.3-8.2) g/dL Albumin 4.1 (3.5-5.0) g/dL Current Medications Generic Name Dose Route Start Last Admin Trade Name Freq PRN Reason Stop Dose Admin Aspirin 81 mg 01/27/19 09:00 Aspirin PO DAILY COUNTS INCLUDE 234 BEDS AT THE [facility] Atorvastatin Calcium 80 mg 01/27/19 09:00 Lipitor PO DAILY COUNTS INCLUDE 234 BEDS AT THE [facility] Bumetanide 1 mg 01/26/19 22:00 01/26/19 21:14 Bumex PO 1 mg TID RUTH Administration Gabapentin 600 mg 01/26/19 22:00 01/26/19 21:14 Neurontin PO 600 mg TID RUTH Administration Heparin Sodium (Porcine) 0 unit 01/26/19 16:27 Heparin IV Q6HR PRN Low PTT Protocol Sodium Chloride 1,000 mls @ 20 mls/hr 01/26/19 16:30 01/26/19 16:45 Saline 0.9% IV 20 mls/hr .Q24H RUTH Administration Heparin Sodium/Sodium Chloride 250 mls @ 10 mls/hr 01/26/19 16:30 01/26/19 16:48 25,000 unit/ Sodium Chloride IV 10.021 units/kg/hr .Q24H RUTH 10 mls/hr Administration Protocol 10.021 UNITS/KG/HR Ceftriaxone Sodium 1 gm/ 50 mls @ 100 mls/hr 01/27/19 17:00 Sodium Chloride IVPB Q24H COUNTS INCLUDE 234 BEDS AT THE [facility] Insulin Aspart 5 unit 01/27/19 07:30 Novolog Mix 70-30 Vial SQ AC-TID COUNTS INCLUDE 234 BEDS AT THE [facility] Isosorbide Mononitrate 30 mg 01/27/19 09:00 Imdur PO DAILY COUNTS INCLUDE 234 BEDS AT THE [facility] Levothyroxine Sodium 125 mcg 01/27/19 06:30 01/27/19 05:41 Synthroid PO 125 mcg DAILY@0630 RUTH Administration Losartan Potassium 50 mg 01/27/19 09:00 Cozaar PO DAILY COUNTS INCLUDE 234 BEDS AT THE [facility] Metoprolol Tartrate 25 mg 01/26/19 21:00 01/26/19 21:14 Lopressor PO 25 mg BID RUTH Administration Nitroglycerin 0.4 mg 01/26/19 16:27 Nitrostat SUBLINGUAL Q5M PRN Chest Pain Oxycodone/Acetaminophen 1 each 01/26/19 18:13 Percocet 10-325 PO Q6H PRN Pain Intake and Output 01/26/19 01/27/19 01/27/19 22:59 06:59 14:59 Intake Total 350 Balance 350 Intake: Intake, IV Titration 350 Amount cefTRIAXone 1 gm In 350 Sodium Chloride 0.9% 50 ml @ 100 mls/hr IVPB Q24H COUNTS INCLUDE 234 BEDS AT THE [facility] Rx#:[id number] Other: Voiding Method Toilet Toilet # Voids 1 01/27/19 06:14 01/26/19 14:25 Assessment and Plan Assessment: Assessment #1 atypical chest discomfort #2 CAD and status post revascularization #3 status post permanent pacemaker #4 multiple comorbid conditions including hypertension, dyslipidemia, and diabetes Plan #1 acute coronary event was ruled out. The EKG showed no ischemic changes. The cardiac enzymes are unremarkable #2 the chest discomfort seems to be very atypical and currently the patient is chest pain-free #3 I am going to get the patient up and around, and if she is asymptomatic she might be able to be discharged home #4 I will obtain an echocardiogram was Doppler Thank you for allowing us participate in her care and we will continue following up with the patient
--- NOTE | 2019-01-27 07:57 | P.HPIM ---
History of Present Illness H&P Date: 01/27/19 Chief Complaint: Shortness of breath chest pressure. This is a 73-year-old female with history of chronic pain elements and hypertension who has been complaining of chest pressure. No nausea vomiting no significant diaphoresis. However there is immobility syndrome elements. Unfortunate she lives with a grandson who does assist significantly with her ADLs. No fever or chills. No some nausea vomiting and episodic diarrhea this week. Review of Systems Constitutional: Reports fatigue, Reports weakness, Denies chills, Denies fever Eyes: denies blurred vision, denies pain Ears, nose, mouth and throat: Denies headache, Denies sore throat Cardiovascular: Reports chest pain, Reports leg edema, Reports shortness of breath Respiratory: Denies cough Genitourinary: Denies dysuria, Denies hematuria Past Medical History Past Medical History: Atrial Fibrillation, Coronary Artery Disease (CAD), Heart Failure, Diabetes Mellitus, Deep Vein Thrombosis (DVT), Hyperlipidemia, Hypertension, Renal Disease, Thyroid Disorder Additional Past Medical History / Comment(s): neuropathy,lupus, back pain, BACK WOUND-Healed, USES CANE , CATARACT bilat. History of Any Multi-Drug Resistant Organisms: VRE Date of last positivie culture/infection: 04/01/16 MDRO Source:: back Past Surgical History: Appendectomy, Back Surgery, Breast Surgery, Cholecystectomy, Coronary Bypass/CABG, Pacemaker Additional Past Surgical History / Comment(s): thyroidectomy. triple bypass 2000, CATARACT bilat EYE 11/2016, LUE dialysis port. 5 back sx. pt had [address] [place] for afib- unsuccessful. Past Anesthesia/Blood Transfusion Reactions: No Reported Reaction Additional Past Anesthesia/Blood Transfusion Reaction / Comment(s): CLAUSTROPHOBIA. HAD A BLOOD TRANSFUSION 1968-NO REACTION. Type of Cardiac Device: Permanent Pacemaker Device Placement Date:: january 2018 Past Psychological History: No Psychological Hx Reported Additional Psychological History / Comment(s): lives with grandson. independent and uses a cane. pt states she still drives. Smoking Status: Former smoker Past Alcohol Use History: None Reported Additional Past Alcohol Use History / Comment(s): STARTED SMOKING AT AGE 16 QUIT 2000 WAS SMOKING 3 PPD BY TIME SHE QUIT Past Drug Use History: None Reported - Past Family History Father Family Medical History: Cancer Additional Family Medical History / Comment(s): prostate cancer Mother Family Medical History: Cancer, Congestive Heart Failure (CHF), Diabetes Me llitus, Hyperlipidemia, Hypertension, Osteoarthritis (OA) Additional Family Medical History / Comment(s): colon cancer Brother(s) Family Medical History: Coronary Artery Disease (CAD), Deep Vein Thrombosis (DVT) Additional Family Medical History / Comment(s): back surgery Sister(s) Family Medical History: Hyperlipidemia Additional Family Medical History / Comment(s): thyroid cancer Medications and Allergies Home Medications Medication Instructions Recorded Confirmed Type Levothyroxine Sodium [Synthroid] 125 mcg PO DAILY 11/27/15 01/26/19 History Insulin NPL/Insulin Lispro See Protocol SQ AC-TID PRN 12/03/16 01/26/19 History [humaLOG MIX 75-25 VIAL] Gabapentin 600 mg PO TID 08/06/18 01/26/19 History Isosorbide Mononitrate ER [Imdur] 30 mg PO DAILY 08/06/18 01/26/19 History Aspirin EC [Ecotrin Low Dose] 81 mg PO DAILY 09/09/18 01/26/19 History Bumetanide [BUMEX] 1 mg PO TID 09/09/18 01/26/19 History Insulin NPL/Insulin Lispro 5 units SQ AC-TID 09/09/18 01/26/19 History [humaLOG MIX 75-25 VIAL] Losartan [Cozaar] 50 mg PO DAILY 09/09/18 01/26/19 History oxyCODONE-APAP 10-325MG [Percocet 1 tab PO Q6H PRN 01/26/19 01/26/19 History 10-325 mg] Allergies Allergy/AdvReac Type Severity Reaction Status Date / Time No Known Allergies Allergy Verified 01/26/19 14:26 Physical Exam Vitals: Vital Signs Temp Pulse Pulse Resp BP BP Pulse Ox 01/27/19 04:00 98.2 F 63 18 120/48 93 L 01/27/19 03:40 60 18 01/26/19 23:59 60 18 01/26/19 23:58 98.3 F 72 18 118/64 96 01/26/19 20:00 97.6 F 60 18 145/90 100 01/26/19 17:59 85 17 01/26/19 17:23 97.5 F L 85 17 138/49 97 01/26/19 17:00 98.5 F 01/26/19 16:51 85 18 107/49 98 01/26/19 14:11 98.2 F 86 18 105/88 99 Intake and Output 01/26/19 01/27/19 01/27/19 22:59 06:59 14:59 Intake Total 350 Balance 350 Intake: Intake, IV Titration 350 Amount cefTRIAXone 1 gm In 350 Sodium Chloride 0.9% 50 ml @ 100 mls/hr IVPB Q24H [facility] Rx#:[id number] Other: Voiding Method Toilet Toilet # Voids 1 - Constitutional General appearance: no acute distress - EENT Eyes: EOMI - Neck Neck: no lymphadenopathy - Respiratory Respiratory: bilateral: diminished - Cardiovascular Rhythm: regular Heart sounds: normal: S1, S2 Abnormal Heart Sounds: no S3 Gallop - Gastrointestinal General gastrointestinal: soft, no tenderness - Musculoskeletal Musculoskeletal: generalized weakness - Psychiatric Psychiatric: A&O x's 3 Results CBC & Chem 7: 01/27/19 06:14 01/26/19 14:25 Labs: Abnormal Lab Results - Last 24 Hours (Table) 01/26/19 01/26/19 01/26/19 Range/Units 14:25 14:25 14:25 Hgb 11.2 L (11.4-16.0) gm/dL RDW 17.1 H (11.5-15.5) % Lymphocytes # 0.7 L (1.0-4.8) k/uL APTT (22.0-30.0) sec D-Dimer 1.29 H (<0.60) mg/L FEU BUN 55 H (7-17) mg/dL Creatinine 1.49 H (0.52-1.04) mg/dL Glucose 200 H (74-99) mg/dL POC Glucose (mg/dL) (75-99) mg/dL AST 44 H (14-36) U/L Cholesterol (<200) mg/dL LDL Cholesterol, Calc (0-99) mg/dL 01/26/19 01/26/19 01/26/19 Range/Units 17:18 20:36 22:12 Hgb (11.4-16.0) gm/dL RDW (11.5-15.5) % Lymphocytes # (1.0-4.8) k/uL APTT 50.1 H (22.0-30.0) sec D-Dimer (<0.60) mg/L FEU BUN (7-17) mg/dL Creatinine (0.52-1.04) mg/dL Glucose (74-99) mg/dL POC Glucose (mg/dL) 153 H 170 H (75-99) mg/dL AST (14-36) U/L Cholesterol (<200) mg/dL LDL Cholesterol, Calc (0-99) mg/dL 01/27/19 01/27/19 01/27/19 Range/Units 06:14 06:14 06:45 Hgb (11.4-16.0) gm/dL RDW (11.5-15.5) % Lymphocytes # (1.0-4.8) k/uL APTT 49.0 H (22.0-30.0) sec D-Dimer (<0.60) mg/L FEU BUN (7-17) mg/dL Creatinine (0.52-1.04) mg/dL Glucose (74-99) mg/dL POC Glucose (mg/dL) 140 H (75-99) mg/dL AST (14-36) U/L Cholesterol 215 H (<200) mg/dL LDL Cholesterol, Calc 141 H (0-99) mg/dL Thrombosis Risk Factor Assmnt - Choose All That Apply Any of the Below Risk Factors Present?: Yes Each Factor Represents 1 point: Obesity (BMI >25), Swollen legs (current) Other Risk Factors: Yes Each Risk Factor Represents 3 Points: Age 75 years or older Other congenital or acquired thrombophilia - If yes, enter type in comment: No Thrombosis Risk Factor Assessment Total Risk Factor Score: 5 Thrombosis Risk Factor Assessment Level: High Risk Assessment and Plan (1) Atypical chest pain Current Visit: Yes Status: Acute Code(s): R07.89 - OTHER CHEST PAIN SNOMED Code(s): 444619143 (2) At risk for readmission to hospital Current Visit: No Status: Acute Code(s): Z91.89 - OTH PERSONAL RISK FACTORS, NOT ELSEWHERE CLASSIFIED SNOMED Code(s): 3236886953981 (3) Weakness Current Visit: No Status: Acute Code(s): R53.1 - WEAKNESS SNOMED Code(s): 82726838 Plan: Given edema with systolic murmur, we will go ahead and order echocardiogram after discussion with cardiology. Reconcile medications. Place on sliding scale for diabetes. Prognosis is guarded secondary to his multiple comorbidities.
[2019-01-27] MEDS: INSULN ASP PRT/INSULIN ASPART 100 UNIT/ML 10 ML VIAL SQ SCH ×3 (08:48→17:24)
[2019-01-27] MEDS: METOPROLOL TARTRATE 25 MG TAB PO SCH (08:48)
[2019-01-27] MEDS: GABAPENTIN 300 MG CAP PO SCH ×2 (08:48→17:24)
[2019-01-27] MEDS: oxyCODONE-APAP 10-325MG 1 EACH TAB PO PRN ×2 (08:48→15:03)
[2019-01-27] MEDS ORDERED: ASPIRIN 81 MG PO SCH (09:00)
[2019-01-27] MEDS ORDERED: ISOSORBIDE MONONITRATE ER 30 MG TAB.ER.24H PO SCH (09:00)
[2019-01-27] MEDS ORDERED: ASPIRIN 325 MG TAB PO SCH (09:00)
[2019-01-27] MEDS ORDERED: LOSARTAN 50 MG TAB PO SCH (09:00)
[2019-01-27] MEDS ORDERED: ATORVASTATIN 80 MG TAB PO SCH (09:00)
[2019-01-27] MEDS: BUMETANIDE 1 MG TAB PO SCH ×2 (10:48→17:24)
[2019-01-27 11:17] LABS: Glucose,Whole Blood 276 mg/dL (75-99)
[2019-01-27 16:27] VITALS: BP 109/65; PULSE 62; TEMP 97.3
[2019-01-27 17:00] LABS: Glucose,Whole Blood 112 mg/dL (75-99)
--- NOTE | 2019-01-27 17:00 | ECHOF ---
Referral Reason:heart murmur MEASUREMENTS -------- HEIGHT: 175.3 cm WEIGHT: 99.8 kg BP: 120/48 RVIDd: 3.8 cm (< 3.3) IVSd: 1.4 cm (0.6 - 1.1) LVIDd: 5.2 cm (3.9 - 5.3) LVPWd: 1.5 cm (0.6 - 1.1) IVSs: 2.1 cm LVIDs: 3.6 cm LVPWs: 1.4 cm LAESV Index (A-L): 60.08 ml/m Ao Diam: 2.8 cm (2.0 - 3.7) AV Cusp: 1.4 cm (1.5 - 2.6) LA Diam: 5.1 cm (2.7 - 3.8) EPSS: 0.7 cm MV E Francesco: 1.27 m/s MV DecT: 219 ms MV A Francesco: 0.65 m/s MV E/A Ratio: 1.95 RAP: 5.00 mmHg RVSP: 56.20 mmHg MV EF SLOPE: 71.66 mm/s (70 - 150) MV EXCURSION: 2.27 cm (> 18.000) FINDINGS -------- Sinus rhythm. The left ventricular size is normal. There is moderate concentric left ventricular hypertrophy. O verall left ventricular systolic function is normal with, an EF between 55 - 60 %. Mitral Doppler i nflow pattern suggests diastolic filling abnormality. Septal wall motion is delayed and consistent with prior cardiac surgery. The right ventricle is moderately enlarged. Left atrium is severely dilated by volume. The right atrium is mildly enlarged. Electronic pacemaker lead seen in the right atrial cavity. Interatrial and interventricular septum intact. There is moderate aortic valve sclerosis without stenosis. Trace amount of aortic regurgitation. Moderate mitral annular calcification present. Moderate mitral regurgitation is present. Moderate tricuspid regurgitation present. There is moderate to severe pulmonary hypertension. The right ventricular systolic pressure, as measured by Doppler, is 56.20mmHg. Trace/mild (physiologic) pulmonic regurgitation. The aortic root size is normal. IVC not well visualized There is no pericardial effusion. CONCLUSIONS -------- 1. Sinus rhythm. 2. The left ventricular size is normal. 3. There is moderate concentric left ventricular hypertrophy. 4. Overall left ventricular systolic function is normal with, an EF between 55 - 60 %. 5. Mitral Doppler inflow pattern suggests diastolic filling abnormality. 6. Septal wall motion is delayed and consistent with prior cardiac surgery. 7. The right ventricle is moderately enlarged. 8. Left atrium is severely dilated by volume. 9. The right atrium is mildly enlarged. 10. Electronic pacemaker lead seen in the right atrial cavity. 11. Interatrial and interventricular septum intact. 12. There is moderate aortic valve sclerosis without stenosis. 13. Trace amount of aortic regurgitation. 14. Moderate mitral annular calcification present. 15. Moderate mitral regurgitation is present. 16. Moderate tricuspid regurgitation present. 17. There is moderate to severe pulmonary hypertension. 18. The right ventricular systolic pressure, as measured by Doppler, is 56.20mmHg. 19. Trace/mild (physiologic) pulmonic regurgitation. 20. The aortic root size is normal. 21. IVC not well visualized 22. There is no pericardial effusion. [employer]: Amber Emmanuel RDCS
--- NOTE | 2019-01-27 18:36 | P.DS ---
Providers Date of admission: 01/26/19 16:27 Attending physician: Virgil Hdz Consults: 01/26/19 16:27 Consult Physician Urgent Consulting Provider: Pina Luz Consult Reason/Comments: cp Do you want consulting provider notified?: Yes Primary care physician: Virgil Hdz - Discharge Diagnosis(es) (1) Atypical chest pain Current Visit: Yes Status: Acute (2) At risk for readmission to hospital Current Visit: No Status: Acute (3) Weakness Current Visit: No Status: Acute Hospital Course: This is discharged home in a 73-year-old white female since admitted for atypical type chest pain with chronic opiate dependence. The patient was ruled out for myocardial infarction and found to have significant cellulitis. The patient will be discharged on Ceftin as Rocephin has been helping her. The patient will follow up with me in about 1 week.I had a long discussion regarding the fact that she most likely will have to learn to live with some element of pain. Patient Condition at Discharge: Good Plan - Discharge Summary Discharge Rx Participant: No New Discharge Prescriptions: No Action RX: Levothyroxine Sodium [Synthroid] 125 mcg PO DAILY RX: Insulin NPL/Insulin Lispro [humaLOG MIX 75-25 VIAL] See Protocol SQ AC- TID PRN PRN Reason: HIGH SUGAR RX: Isosorbide Mononitrate ER [Imdur] 30 mg PO DAILY RX: Gabapentin 600 mg PO TID RX: Losartan [Cozaar] 50 mg PO DAILY RX: Bumetanide [BUMEX] 1 mg PO TID RX: Aspirin EC [Ecotrin Low Dose] 81 mg PO DAILY RX: Insulin NPL/Insulin Lispro [humaLOG MIX 75-25 VIAL] 5 units SQ AC-TID RX: oxyCODONE-APAP 10-325MG [Percocet 10-325 mg] 1 tab PO Q6H PRN PRN Reason: Pain Discharge Medication List RX: Levothyroxine Sodium [Synthroid] 125 mcg PO DAILY 11/27/15 [History] RX: Insulin NPL/Insulin Lispro [humaLOG MIX 75-25 VIAL] See Protocol SQ AC-TID PRN 12/03/16 [History] RX: Gabapentin 600 mg PO TID 08/06/18 [History] RX: Isosorbide Mononitrate ER [Imdur] 30 mg PO DAILY 08/06/18 [History] RX: Aspirin EC [Ecotrin Low Dose] 81 mg PO DAILY 09/09/18 [History] RX: Bumetanide [BUMEX] 1 mg PO TID 09/09/18 [History] RX: Insulin NPL/Insulin Lispro [humaLOG MIX 75-25 VIAL] 5 units SQ AC-TID 09/09/18 [History] RX: Losartan [Cozaar] 50 mg PO DAILY 09/09/18 [History] RX: oxyCODONE-APAP 10-325MG [Percocet 10-325 mg] 1 tab PO Q6H PRN 01/26/19 [History] Follow up Appointment(s)/Referral(s): Chase Brewster MD [STAFF PHYSICIAN] - 02/09/19 10:45 am (follow up with Lenoela ENNIS post hospitalization for chest pain) Virgil Hdz MD [Primary Care Provider] - 1-2 days Patient Instructions/Handouts: Chest Pain (DC)
== END 2019-01-27 19:07 | disposition home or self-care (01) ==
LOC: EC 14:07 → 1SOBS 16:27
PROVIDERS: ADMIT Family Medicine; ATTEND Family Medicine
DX: R07.89 Other chest pain (principal); R53.1 Weakness; F11.20 Opioid dependence, uncomplicated; I48.91 Unspecified atrial fibrillation; I13.0 Hypertensive heart and chronic kidney disease with heart failure and stage 1 through stage 4 chronic kidney disease, or unspecified chronic kidney disease; N18.9 Chronic kidney disease, unspecified; E11.22 Type 2 diabetes mellitus with diabetic chronic kidney disease; I50.9 Heart failure, unspecified; L03.90 Cellulitis, unspecified; M79.605 Pain in left leg; M79.604 Pain in right leg; R60.0 Localized edema; E78.00 Pure hypercholesterolemia, unspecified; E89.0 Postprocedural hypothyroidism; E11.42 Type 2 diabetes mellitus with diabetic polyneuropathy; Z16.21 Resistance to vancomycin; I25.10 Atherosclerotic heart disease of native coronary artery without angina pectoris; E78.5 Hyperlipidemia, unspecified; M32.9 Systemic lupus erythematosus, unspecified; F40.240 Claustrophobia; E66.9 Obesity, unspecified; Z68.32 Body mass index [BMI] 32.0-32.9, adult; Z79.890 Hormone replacement therapy; Z79.4 Long term (current) use of insulin; Z79.82 Long term (current) use of aspirin; Z79.899 Other long term (current) drug therapy; Z98.42 Cataract extraction status, left eye; Z98.41 Cataract extraction status, right eye; Z90.49 Acquired absence of other specified parts of digestive tract; Z95.1 Presence of aortocoronary bypass graft; Z87.891 Personal history of nicotine dependence; Z86.718 Personal history of other venous thrombosis and embolism; Z95.0 Presence of cardiac pacemaker; R79.89 Other specified abnormal findings of blood chemistry; Z83.3 Family history of diabetes mellitus; Z82.61 Family history of arthritis; Z83.49 Family history of other endocrine, nutritional and metabolic diseases; Z80.0 Family history of malignant neoplasm of digestive organs; Z83.2 Family history of diseases of the blood and blood-forming organs and certain disorders involving the immune mechanism; Z80.8 Family history of malignant neoplasm of other organs or systems; Z82.49 Family history of ischemic heart disease and other diseases of the circulatory system
CPT/HCPCS: 96366 ×2; 96376 ×2; 96368; 96365; 96375; 99285; 36415; 93005; 93306; 85379; 83880; 80061; 80053; 83690; 83735; 84484 ×2; 85025; 85049; 85610; 85730 ×2; 71046; 93970; 78582; G0378 ×2; A9540; A9567; J2270; J1644 ×2; J0696 ×2

== ENCOUNTER 2019-02-24 10:57 | Emergency (ER) | payer MEDICARE, OTHER ==
[2019-02-24 11:03] VITALS: RESP 16; TEMP 98
[2019-02-24] MEDS ORDERED: MORPHINE SULFATE 4 MG/ML SYRINGE IVP STA ×2 (11:51→14:43)
[2019-02-24] MEDS ORDERED: ONDANSETRON 4 MG/2 ML VIAL IVP STA (11:51)
[2019-02-24 12:07] LABS: Basophils % (A) 1 %; Eosinophils # (A) 0.1 k/uL (0-0.7); Eosinophils % (A) 2 %; HCT 34.6 % (34.0-46.0); HGB 11.1 gm/dL (11.4-16.0); Lymphocytes # (A) 0.8 k/uL (1.0-4.8); Lymphocytes % (A) 19 %; MCH 29.7 pg (25.0-35.0); MCV 92.7 fL (80.0-100.0); Monocytes # (A) 0.2 k/uL (0-1.0); Monocytes % (A) 5 %; Neutrophils # (A) 3.1 k/uL (1.3-7.7); Neutrophils % (A) 71 %; Platelet Count 151 k/uL (150-450); RBC 3.73 m/uL (3.80-5.40); RDW 15.1 % (11.5-15.5); WBC 4.3 k/uL (3.8-10.6)
[2019-02-24 12:14] LABS: Partial Thromboplastin Time 24.9 sec (22.0-30.0); Prothrombin Time 10.7 sec (9.0-12.0)
[2019-02-24 12:24] LABS: ALT 24 U/L (9-52); AST 36 U/L (14-36); African American GFR (CKD) 52 (>60 ml/min/1.73 sqM); Albumin 4.1 g/dL (3.5-5.0); Alkaline Phosphatase 93 U/L (38-126); Anion Gap 10 mmol/L; Blood Urea Nitrogen 41 mg/dL (7-17); C Reactive Protein <5.0 mg/L (<10.0); Calcium 9.3 mg/dL (8.4-10.2); Carbon Dioxide 26 mmol/L (22-30); Chloride 102 mmol/L (98-107); Glucose 215 mg/dL (74-99); Potassium 4.3 mmol/L (3.5-5.1); Sodium 138 mmol/L (137-145); Total Bilirubin 0.8 mg/dL (0.2-1.3); Total Protein 7.2 g/dL (6.3-8.2)
--- NOTE | 2019-02-24 12:37 | ED ---
Nausea/Vomiting/Diarrhea HPI - General Chief complaint: Nausea/Vomiting/Diarrhea Stated complaint: Nausea, Vomiting Time Seen by Provider: 02/24/19 11:00 Source: EMS Mode of arrival: EMS Limitations: no limitations - History of Present Illness Initial comments: Patient is a 73-year-old female with past medical history of recurrent cellulitis presents emergency room with concern for cellulitis. She states that she is currently under the care of Dr. Hdz. He did have her on Keflex. She finished a course 3 days ago for her bilateral lower extremity cellulitis. States it's recurrent for her. After the antibiotic finished she reports that the swelling in her lower extremities worsened. She also began having increasing warmth from the lower extremities. States that she has significant calf pain. Reports a history of a DVT. She is not on any anticoagulation at this time because she states that she "hemorrhages" when on them. She reports that the pain has been so severe that she has had nausea with vomiting. She has been unable to keep down any medications of the past couple of days. She also reports that her grandson throughout some of her medications and will need refills. She reports suprapubic abdominal pain. Denies dysuria, hematuria or difficulty voiding. Denies diarrhea, constipation, melanotic stools or hematochezia. No fevers or chills. There are no alleviating, precipitating or modifying factors - Related Data Home Medications Medication Instructions Recorded Confirmed Levothyroxine Sodium [Synthroid] 125 mcg PO DAILY 11/27/15 02/24/19 Insulin NPL/Insulin Lispro See Protocol SQ AC-TID PRN 12/03/16 02/24/19 [humaLOG MIX 75-25 VIAL] Gabapentin 600 mg PO TID 08/06/18 02/24/19 Isosorbide Mononitrate ER [Imdur] 30 mg PO DAILY 08/06/18 02/24/19 Aspirin EC [Ecotrin Low Dose] 81 mg PO DAILY 09/09/18 02/24/19 Bumetanide [BUMEX] 1 mg PO TID 09/09/18 02/24/19 Insulin NPL/Insulin Lispro 5 units SQ AC-TID 09/09/18 02/24/19 [humaLOG MIX 75-25 VIAL] Losartan [Cozaar] 50 mg PO DAILY 09/09/18 02/24/19 oxyCODONE-APAP 10-325MG [Percocet 1 tab PO Q6H PRN 01/26/19 02/24/19 10-325 mg] Previous Rx's Medication Instructions Recorded Atorvastatin [Lipitor] 80 mg PO DAILY #30 tab 01/27/19 Metoprolol Tartrate [Lopressor] 25 mg PO BID #60 tab 01/27/19 Nitroglycerin Sl Tabs [Nitrostat] 0.4 mg SUBLINGUAL Q5M PRN #50 tab 01/27/19 Bumetanide [Bumex] 1 mg PO TID #21 tablet 02/24/19 Clindamycin HCl [Cleocin] 450 mg PO TID #63 cap 02/24/19 Gabapentin [Neurontin] 600 mg PO TID #21 tab 02/24/19 Isosorbide Mononitrate ER [Imdur] 30 mg PO DAILY #7 tab 02/24/19 Allergies Allergy/AdvReac Type Severity Reaction Status Date / Time No Known Allergies Allergy Verified 02/24/19 11:18 Review of Systems ROS Statement: Those systems with pertinent positive or pertinent negative responses have been documented in the HPI. ROS Other: All systems not noted in ROS Statement are negative. Past Medical History Past Medical History: Atrial Fibrillation, Coronary Artery Disease (CAD), Heart Failure, Diabetes Mellitus, Deep Vein Thrombosis (DVT), Hyperlipidemia, Hypertension, Renal Disease, Thyroid Disorder Additional Past Medical History / Comment(s): neuropathy,lupus, back pain, BACK WOUND-Healed, USES CANE , CATARACT bilat. History of Any Multi-Drug Resistant Organisms: VRE Date of last positivie culture/infection: 04/01/16 MDRO Source:: back Past Surgical History: Appendectomy, Back Surgery, Breast Surgery, Cholecystectomy, Coronary Bypass/CABG, Pacemaker Additional Past Surgical History / Comment(s): thyroidectomy. triple bypass 2000, CATARACT bilat EYE 11/2016, LUE dialysis port. 5 back sx. pt had 2 ablations in [place] for afib- unsuccessful. Past Anesthesia/Blood Transfusion Reactions: No Reported Reaction Additional Past Anesthesia/Blood Transfusion Reaction / Comment(s): CLAUSTROPHOBIA. HAD A BLOOD TRANSFUSION 1968-NO REACTION. Type of Cardiac Device: Permanent Pacemaker Device Placement Date:: january 2018 Past Psychological History: No Psychological Hx Reported Smoking Status: Former smoker Past Alcohol Use History: None Reported Past Drug Use History: None Reported - Past Family History Father Family Medical History: Cancer Additional Family Medical History / Comment(s): prostate cancer Mother Family Medical History: Cancer, Congestive Heart Failure (CHF), Diabetes Mellitus, Hyperlipidemia, Hypertension, Osteoarthritis (OA) Additional Family Medical History / Comment(s): colon cancer Brother(s) Family Medical History: Coronary Artery Disease (CAD), Deep Vein Thrombosis (DVT) Additional Family Medical History / Comment(s): back surgery Sister(s) Family Medical History: Hyperlipidemia Additional Family Medical History / Comment(s): thyroid cancer General Exam Limitations: no limitations General appearance: alert, in no apparent distress Head exam: Present: atraumatic, normocephalic, normal inspection Eye exam: Present: normal appearance, PERRL, EOMI. Absent: scleral icterus, conjunctival injection, periorbital swelling ENT exam: Present: normal exam, mucous membranes moist Neck exam: Present: normal inspection. Absent: tenderness, meningismus, lymphadenopathy Respiratory exam: Present: normal lung sounds bilaterally. Absent: respiratory distress, wheezes, rales, rhonchi, stridor Cardiovascular Exam: Present: regular rate, normal rhythm, normal heart sounds. Absent: systolic murmur, diastolic murmur, rubs, gallop, clicks GI/Abdominal exam: Present: soft, tenderness (suprapubically), normal bowel sounds. Absent: distended, guarding, rebound, rigid Extremities exam: Present: full ROM, tenderness (right beebe and calf. There is mild erythema with chronic lymphedema. Minimal warmth. No pustular drainage), normal capillary refill, pedal edema. Absent: joint swelling Back exam: Present: normal inspection Neurological exam: Present: alert, oriented X3, CN II-XII intact Psychiatric exam: Present: normal affect, normal mood Skin exam: Present: warm, dry, intact, normal color. Absent: rash Course Vital Signs 02/24/19 02/24/19 02/24/19 10:59 14:00 15:00 Temperature 98.0 F Pulse Rate 74 75 75 Respiratory 16 16 16 Rate Blood Pressure 174/56 154/83 154/83 O2 Sat by Pulse 96 96 96 Oximetry 02/24/19 17:30 Temperature Pulse Rate 68 Respiratory 16 Rate Blood Pressure 163/67 O2 Sat by Pulse 98 Oximetry Medical Decision Making - Medical Decision Making Upon arrival the patient is placed into room 7. A thorough history of physical exam was performed. I did recommend laboratory studies and multiple imaging modalities. laboratory studies demonstrate a hemoglobin of 11.1. Sed rate is 36. Creatinine 1.18. Glucose 215. Lactic acid is 1.2. BNP 1670. TSH 5.8 with a free T4 of 1.32. Protein one plus, white blood cell count 7, rare bacteria. Abdomen and pelvis CT demonstrates no significant interval change. Venous duplex is negative for blood clots bilaterally. Right tib-fib x-ray demonstrates osteopenia and edema. Patient was given 2 doses of morphine for pain control. She was also given a dose of Zofran for nausea. I called and discussed these results with Dr. Hdz. He does recommend that I change the patient's prescription to a different antibiotic and have her follow up in office tomorrow. I did discuss this with the patient. She is requesting medication refills. I did refill her Bumex, gabapentin and Imdur. The patient is to call and make an appointment. If she has any new or worsening symptoms she should return to the emergency room. Patient was discharged home ambulatory in stable condition - Lab Data Result diagrams: 02/24/19 11:07 02/24/19 11:07 Lab Results 02/24/19 02/24/19 02/24/19 Range/Units 11:07 11:07 11:07 WBC 4.3 (3.8-10.6) k/uL RBC 3.73 L (3.80-5.40) m/uL Hgb 11.1 L (11.4-16.0) gm/dL Hct 34.6 (34.0-46.0) % MCV 92.7 (80.0-100.0) fL MCH 29.7 (25.0-35.0) pg MCHC 32.0 (31.0-37.0) g/dL RDW 15.1 (11.5-15.5) % Plt Count 151 (150-450) k/uL Neutrophils % 71 % Lymphocytes % 19 % Monocytes % 5 % Eosinophils % 2 % Basophils % 1 % Neutrophils # 3.1 (1.3-7.7) k/uL Lymphocytes # 0.8 L (1.0-4.8) k/uL Monocytes # 0.2 (0-1.0) k/uL Eosinophils # 0.1 (0-0.7) k/uL Basophils # 0.0 (0-0.2) k/uL ESR 36 H (0-20) mm/hr PT 10.7 (9.0-12.0) sec INR 1.0 (<1.2) APTT 24.9 (22.0-30.0) sec Sodium 138 (137-145) mmol/L Potassium 4.3 (3.5-5.1) mmol/L Chloride 102 (98-107) mmol/L Carbon Dioxide 26 (22-30) mmol/L Anion Gap 10 mmol/L BUN 41 H (7-17) mg/dL Creatinine 1.18 H (0.52-1.04) mg/dL Est GFR (CKD-EPI)AfAm 52 (>60 ml/min/1.73 sqM) Est GFR (CKD-EPI)NonAf 45 (>60 ml/min/1.73 sqM) Glucose 215 H (74-99) mg/dL Plasma Lactic Acid Young (0.7-2.0) mmol/L Calcium 9.3 (8.4-10.2) mg/dL Total Bilirubin 0.8 (0.2-1.3) mg/dL AST 36 (14-36) U/L ALT 24 (9-52) U/L Alkaline Phosphatase 93 (38-126) U/L Troponin I (0.000-0.034) ng/mL C-Reactive Protein <5.0 (<10.0) mg/L NT-Pro-B Natriuret Pep pg/mL Total Protein 7.2 (6.3-8.2) g/dL Albumin 4.1 (3.5-5.0) g/dL Lipase 117 (23-300) U/L TSH 5.820 H (0.465-4.680) mIU/L Free T4 1.32 (0.78-2.19) ng/dL Urine Color Urine Appearance (Clear) Urine pH (5.0-8.0) Ur Specific [place] (1.001-1.035) Urine Protein (Negative) Urine Glucose (UA) (Negative) Urine Ketones (Negative) Urine Blood (Negative) Urine Nitrite (Negative) Urine Bilirubin (Negative) Urine Urobilinogen (<2.0) mg/dL Ur Leukocyte Esterase (Negative) Urine RBC (0-5) /hpf Urine WBC (0-5) /hpf Ur Squamous Epith Cells (0-4) /hpf Urine Bacteria (None) /hpf Urine Mucus (None) /hpf 02/24/19 02/24/19 02/24/19 Range/Units 11:07 11:57 12:32 WBC (3.8-10.6) k/uL RBC (3.80-5.40) m/uL Hgb (11.4-16.0) gm/dL Hct (34.0-46.0) % MCV (80.0-100.0) fL MCH (25.0-35.0) pg MCHC (31.0-37.0) g/dL RDW (11.5-15.5) % Plt Count (150-450) k/uL Neutrophils % % Lymphocytes % % Monocytes % % Eosinophils % % Basophils % % Neutrophils # (1.3-7.7) k/uL Lymphocytes # (1.0-4.8) k/uL Monocytes # (0-1.0) k/uL Eosinophils # (0-0.7) k/uL Basophils # (0-0.2) k/uL ESR (0-20) mm/hr PT (9.0-12.0) sec INR (<1.2) APTT (22.0-30.0) sec Sodium (137-145) mmol/L Potassium (3.5-5.1) mmol/L Chloride (98-107) mmol/L Carbon Dioxide (22-30) mmol/L Anion Gap mmol/L BUN (7-17) mg/dL Creatinine (0.52-1.04) mg/dL Est GFR (CKD-EPI)AfAm (>60 ml/min/1.73 sqM) Est GFR (CKD-EPI)NonAf (>60 ml/min/1.73 sqM) Glucose (74-99) mg/dL Plasma Lactic Acid Young 1.2 (0.7-2.0) mmol/L Calcium (8.4-10.2) mg/dL Total Bilirubin (0.2-1.3) mg/dL AST (14-36) U/L ALT (9-52) U/L Alkaline Phosphatase (38-126) U/L Troponin I <0.012 (0.000-0.034) ng/mL C-Reactive Protein (<10.0) mg/L NT-Pro-B Natriuret Pep 1670 pg/mL Total Protein (6.3-8.2) g/dL Albumin (3.5-5.0) g/dL Lipase (23-300) U/L TSH (0.465-4.680) mIU/L Free T4 (0.78-2.19) ng/dL Urine Color Urine Appearance (Clear) Urine pH (5.0-8.0) Ur Specific [place] (1.001-1.035) Urine Protein (Negative) Urine Glucose (UA) (Negative) Urine Ketones (Negative) Urine Blood (Negative) Urine Nitrite (Negative) Urine Bilirubin (Negative) Urine Urobilinogen (<2.0) mg/dL Ur Leukocyte Esterase (Negative) Urine RBC (0-5) /hpf Urine WBC (0-5) /hpf Ur Squamous Epith Cells (0-4) /hpf Urine Bacteria (None) /hpf Urine Mucus (None) /hpf 02/24/19 Range/Units 14:20 WBC (3.8-10.6) k/uL RBC (3.80-5.40) m/uL Hgb (11.4-16.0) gm/dL Hct (34.0-46.0) % MCV (80.0-100.0) fL MCH (25.0-35.0) pg MCHC (31.0-37.0) g/dL RDW (11.5-15.5) % Plt Count (150-450) k/uL Neutrophils % % Lymphocytes % % Monocytes % % Eosinophils % % Basophils % % Neutrophils # (1.3-7.7) k/uL Lymphocytes # (1.0-4.8) k/uL Monocytes # (0-1.0) k/uL Eosinophils # (0-0.7) k/uL Basophils # (0-0.2) k/uL ESR (0-20) mm/hr PT (9.0-12.0) sec INR (<1.2) APTT (22.0-30.0) sec Sodium (137-145) mmol/L Potassium (3.5-5.1) mmol/L Chloride (98-107) mmol/L Carbon Dioxide (22-30) mmol/L Anion Gap mmol/L BUN (7-17) mg/dL Creatinine (0.52-1.04) mg/dL Est GFR (CKD-EPI)AfAm (>60 ml/min/1.73 sqM) Est GFR (CKD-EPI)NonAf (>60 ml/min/1.73 sqM) Glucose (74-99) mg/dL Plasma Lactic Acid Young (0.7-2.0) mmol/L Calcium (8.4-10.2) mg/dL Total Bilirubin (0.2-1.3) mg/dL AST (14-36) U/L ALT (9-52) U/L Alkaline Phosphatase (38-126) U/L Troponin I (0.000-0.034) ng/mL C-Reactive Protein (<10.0) mg/L NT-Pro-B Natriuret Pep pg/mL Total Protein (6.3-8.2) g/dL Albumin (3.5-5.0) g/dL Lipase (23-300) U/L TSH (0.465-4.680) mIU/L Free T4 (0.78-2.19) ng/dL Urine Color Yellow Urine Appearance Clear (Clear) Urine pH 5.5 (5.0-8.0) Ur Specific [place] 1.013 (1.001-1.035) Urine Protein 1+ H (Negative) Urine Glucose (UA) Negative (Negative) Urine Ketones Negative (Negative) Urine Blood Negative (Negative) Urine Nitrite Negative (Negative) Urine Bilirubin Negative (Negative) Urine Urobilinogen <2.0 (<2.0) mg/dL Ur Leukocyte Esterase Negative (Negative) Urine RBC 1 (0-5) /hpf Urine WBC 7 H (0-5) /hpf Ur Squamous Epith Cells <1 (0-4) /hpf Urine Bacteria Rare H (None) /hpf Urine Mucus Rare H (None) /hpf - EKG Data EKG Comments: EKG demonstrates normal sinus rhythm with a ventricular rate of 60. NE interval 190. QRS 106. QTC 484. No acute ST segment elevations or depressions concerning for ischemic changes Disposition Clinical Impression: Cellulitis Disposition: HOME SELF-CARE Condition: Stable Instructions (If sedation given, give patient instructions): Cellulitis (ED) Additional Instructions: Please call and make an appointment with Dr. Hdz in the next 2-4 days. He is expecting to see you in office. Return to the emergency room for any new or worsening symptoms Prescriptions: Bumetanide [Bumex] 1 mg PO TID #21 tablet Clindamycin HCl [Cleocin] 450 mg PO TID #63 cap Isosorbide Mononitrate ER [Imdur] 30 mg PO DAILY #7 tab Gabapentin [Neurontin] 600 mg PO TID #21 tab Is patient prescribed a controlled substance at d/c from ED?: Yes When asked, does pt state using other controlled substances?: Yes If prescribed controlled substance>3 days was MAPS reviewed?: Yes Referrals: Virgil Hdz MD [Primary Care Provider] - 1-2 days Time of Disposition: 17:15
--- NOTE | 2019-02-24 12:45 | XR ---
Right leg HISTORY: Lower extremity edema 2 views of the right leg Bone mineralization is reduced. Soft tissue calcifications are likely vascular. There is soft tissue swelling. Arthropathy noted in the right knee. There is no fracture or dislocation. Alignment is main tained. Enthesophyte present at the insertion of the Achilles tendon. IMPRESSION: Osteopenia, edema, correlate for cellulitis.
[2019-02-24 13:01] LABS: Erythrocyte Sedimentation Rate 36 mm/hr (0-20)
--- NOTE | 2019-02-24 13:23 | US ---
EXAMINATION TYPE: US venous doppler duplex LE BI DATE OF EXAM: 02/24/2019 1:13 PM COMPARISON: US dated 01/26/2019 CLINICAL HISTORY: le edema, hx dvt, no anticoagulation. Bilateral leg pain x 2 days SIDE PERFORMED: Bilateral TECHNIQUE: The lower extremity deep venous system is examined utilizing real time linear array sonog johanna with graded compression, doppler sonography and color-flow sonography. VESSELS IMAGED: External Iliac Vein (EIV) Common Femoral Vein Deep Femoral Vein Greater Saphenous Vein * Femoral Vein Popliteal Vein Small Saphenous Vein * Proximal Calf Veins (* superficial vessels) Difficult and limited study due to patient body habitus Unable to obtain compression images at right mid and distal femoral vein and at left EIV through di stal femoral vein due to patient unable to tolerate transducer pressure Right Leg: Visualized portions appear negative for DVT Left Leg: Visualized portions appear negative for DVT IMPRESSION: No evident deep venous arthrosis at or above the knees with limitations as described.
[2019-02-24 14:43] LABS: T4, Free (Free Thyroxine) 1.32 ng/dL (0.78-2.19)
[2019-02-24 14:50] LABS: Appearance,Urine Clear (Clear); Bacteria,Urine Rare /hpf; Bilirubin,Urine Negative (Negative); Blood,Urine Negative (Negative); Color,Urine Yellow; Glucose,Urine (UA) Negative (Negative); Ketones,Urine Negative (Negative); Leukocyte Esterase,Urine Negative (Negative); Mucus,Urine Rare /hpf; Nitrite,Urine Negative (Negative); PH, Urine 5.5 (5.0-8.0); Protein,Urine 1+ (Negative); RBC,Urine 1 /hpf (0-5); Specific Gravity,Urine 1.013 (1.001-1.035); Squamous Epithelial Cell,Urine <1 /hpf (0-4); Urobilinogen,Urine <2.0 mg/dL (<2.0)
--- NOTE | 2019-02-24 15:42 | CT ---
EXAMINATION TYPE: CT abdomen pelvis wo con DATE OF EXAM: 02/24/2019 COMPARISON: Prior CT 10/02/2018 HISTORY: Right sided pain CT DLP: 1162.4 mGycm Automated exposure control for dose reduction was used. TECHNIQUE: Helical acquisition of images from the lung bases through the pelvis. FINDINGS: Lack of intravenous contrast could compromise sensitivity. Intracardiac leads noted inciden tally. Within the subcutaneous fat in the right lower quadrant in the anterior abdomen there is incre ased attenuation likely due to injections, correlate. Bilateral injection granuloma are noted inciden tally in the gluteal regions. LUNG BASES: No significant abnormality is appreciated. AORTA: Atherosclerotic vascular calcifications are present.. LIVER/GB: Similar to prior exam. Patient is post cholecystectomy and there is dilation of the common bile duct. Liver shows no mass. PANCREAS: No significant abnormality is seen. SPLEEN: No significant abnormality is seen. ADRENALS: No significant abnormality is seen. KIDNEYS: No significant abnormality is seen. REPRODUCTIVE ORGANS: Uterus is not seen. Suspect left ovary is present as is the right. URINARY BLADDER: No significant abnormality is seen. BOWEL: No significant abnormality is seen. FREE AIR: No Free Air is visible. ASCITES: None visible. PELVIC ADENOPATHY: None visualized. RETROPERITONEAL ADENOPATHY: No Retroperitoneal Adenopathy visible. OSSEOUS STRUCTURES: Stable degenerative disc changes are present within the lumbar spine, there is a ssociated facet arthropathy. Postop changes are noted to the lower lumbar spine. IMPRESSION: THERE IS NO SIGNIFICANT INTERVAL CHANGE. NONCONTRAST EXAM. MARKED DILATION OF THE COMMON BILE DUCT MA Y BE DUE TO POST CHOLECYSTECTOMY CHANGE. POSTOP CHANGES.
[2019-02-24 17:31] VITALS: BP 163/67; PULSE 68
== END 2019-02-24 17:25 | disposition home or self-care (01) ==
LOC: EC 10:57
DX: L03.115 Cellulitis of right lower limb (principal); L03.116 Cellulitis of left lower limb; R11.0 Nausea; M85.861 Other specified disorders of bone density and structure, right lower leg; I48.91 Unspecified atrial fibrillation; I25.10 Atherosclerotic heart disease of native coronary artery without angina pectoris; I11.0 Hypertensive heart disease with heart failure; I50.9 Heart failure, unspecified; E11.40 Type 2 diabetes mellitus with diabetic neuropathy, unspecified; E78.5 Hyperlipidemia, unspecified; E07.9 Disorder of thyroid, unspecified; Z79.890 Hormone replacement therapy; Z79.82 Long term (current) use of aspirin; Z79.4 Long term (current) use of insulin; Z79.899 Other long term (current) drug therapy; Z95.0 Presence of cardiac pacemaker; Z95.1 Presence of aortocoronary bypass graft; Z86.718 Personal history of other venous thrombosis and embolism; Z87.891 Personal history of nicotine dependence
CPT/HCPCS: 36415; 93005; 84439; 83880; 80053; 85652; 84443; 83605; 83690; 84484; 85025; 85610; 85730; 86140; 81001; 87086; 73590; 93970; 74176; 99285; 96374; 96375; 96376; J2270; J2405

== ENCOUNTER 2019-05-08 15:00 | Inpatient (IN) | payer MEDICARE, OTHER ==
--- NOTE | 2019-05-08 15:36 | ED ---
Weakness HPI - General Chief complaint: Shortness of Breath Stated complaint: Urogenital Time Seen by Provider: 05/08/19 15:07 Source: patient, RN notes reviewed, old records reviewed Mode of arrival: EMS Limitations: no limitations - History of Present Illness Initial comments: this is a 73-year-old female here for evaluation patient closely for evaluation with regards to multiple complaints. Patient has persistent complaints as of breath, abdominal pain swelling decreased urinary output increased leg edema. Patient has history of dialysis but was greater than 2 years ago patient off dialysis for the past 2 years. Began with shortness of breath denying any major episodes of pain is different from her normal. No fevers. No other recent storey ge in medications she does take a water pill which she states she does not urinating MD Complaint: generalized weakness, lack of energy -: days(s) Location: generalized Severity: moderate Severity scale (1-10): 5 Quality: aching Consistency: constant Improves with: none Worsens with: none Context: history of similar Associated Symptoms: nausea/vomiting, shortness of breath - Related Data Home Medications Medication Instructions Recorded Confirmed Levothyroxine Sodium [Synthroid] 125 mcg PO DAILY 11/27/15 02/24/19 Insulin NPL/Insulin Lispro See Protocol SQ AC-TID PRN 12/03/16 02/24/19 [humaLOG MIX 75-25 VIAL] Gabapentin 600 mg PO TID 08/06/18 02/24/19 Isosorbide Mononitrate ER [Imdur] 30 mg PO DAILY 08/06/18 02/24/19 Aspirin EC [Ecotrin Low Dose] 81 mg PO DAILY 09/09/18 02/24/19 Bumetanide [BUMEX] 1 mg PO TID 09/09/18 02/24/19 Insulin NPL/Insulin Lispro 5 units SQ AC-TID 09/09/18 02/24/19 [humaLOG MIX 75-25 VIAL] Losartan [Cozaar] 50 mg PO DAILY 09/09/18 02/24/19 oxyCODONE-APAP 10-325MG [Percocet 1 tab PO Q6H PRN 01/26/19 02/24/19 10-325 mg] Previous Rx's Medication Instructions Recorded Atorvastatin [Lipitor] 80 mg PO DAILY #30 tab 01/27/19 Metoprolol Tartrate [Lopressor] 25 mg PO BID #60 tab 01/27/19 Nitroglycerin Sl Tabs [Nitrostat] 0.4 mg SUBLINGUAL Q5M PRN #50 tab 01/27/19 Bumetanide [Bumex] 1 mg PO TID #21 tablet 02/24/19 Clindamycin HCl [Cleocin] 450 mg PO TID #63 cap 02/24/19 Gabapentin [Neurontin] 600 mg PO TID #21 tab 02/24/19 Isosorbide Mononitrate ER [Imdur] 30 mg PO DAILY #7 tab 02/24/19 Allergies Allergy/AdvReac Type Severity Reaction Status Date / Time No Known Allergies Allergy Verified 05/08/19 15:11 Review of Systems ROS Statement: Those systems with pertinent positive or pertinent negative responses have been documented in the HPI. ROS Other: All systems not noted in ROS Statement are negative. Past Medical History Past Medical History: Atrial Fibrillation, Coronary Artery Disease (CAD), Heart Failure, Diabetes Mellitus, Deep Vein Thrombosis (DVT), Hyperlipidemia, Hypertension, Renal Disease, Thyroid Disorder Additional Past Medical History / Comment(s): neuropathy,lupus, back pain, BACK WOUND-Healed, USES CANE , CATARACT bilat. History of Any Multi-Drug Resistant Organisms: VRE Date of last positivie culture/infection: 04/01/16 MDRO Source:: back Past Surgical History: Appendectomy, Back Surgery, Breast Surgery, Cholecystectomy, Coronary Bypass/CABG, Pacemaker Additional Past Surgical History / Comment(s): thyroidectomy. triple bypass 2000, CATARACT bilat EYE 11/2016, LUE dialysis port. 5 back sx. pt had 2 ablations in [place] for afib- unsuccessful. Past Anesthesia/Blood Transfusion Reactions: No Reported Reaction Additional Past Anesthesia/Blood Transfusion Reaction / Comment(s): CLAUSTROPHOBIA. HAD A BLOOD TRANSFUSION 1968-NO REACTION. Type of Cardiac Device: Permanent Pacemaker Device Placement Date:: january 2018 Past Psychological History: No Psychological Hx Reported Smoking Status: Former smoker Past Alcohol Use History: None Reported Past Drug Use History: None Reported - Past Family History Father Family Medical History: Cancer Additional Family Medical History / Comment(s): prostate cancer Mother Family Medical History: Cancer, Congestive Heart Failure (CHF), Diabetes Mellitus, Hyperlipidemia, Hypertension, Osteoarthritis (OA) Additional Family Medical History / Comment(s): colon cancer Brother(s) Family Medical History: Coronary Artery Disease (CAD), Deep Vein Thrombosis (DVT) Additional Family Medical History / Comment(s): back surgery Sister(s) Family Medical History: Hyperlipidemia Additional Family Medical History / Comment(s): thyroid cancer General Exam Limitations: no limitations General appearance: alert, in no apparent distress Head exam: Present: atraumatic, normocephalic, normal inspection Eye exam: Present: normal appearance, PERRL, EOMI. Absent: scleral icterus, conjunctival injection, periorbital swelling ENT exam: Present: normal exam, mucous membranes moist Neck exam: Present: normal inspection. Absent: tenderness, meningismus, lymphadenopathy Respiratory exam: Present: normal lung sounds bilaterally. Absent: respiratory distress, wheezes, rales, rhonchi, stridor Cardiovascular Exam: Present: regular rate, normal rhythm, normal heart sounds. Absent: systolic murmur, diastolic murmur, rubs, gallop, clicks GI/Abdominal exam: Present: soft, normal bowel sounds. Absent: distended, tenderness, guarding, rebound, rigid Extremities exam: Present: normal inspection, full ROM, normal capillary refill. Absent: tenderness, pedal edema, joint swelling, calf tenderness Back exam: Present: normal inspection Neurological exam: Present: alert, oriented X3, CN II-XII intact Psychiatric exam: Present: normal affect, normal mood Skin exam: Present: warm, dry, intact, normal color. Absent: rash Course Vital Signs 05/08/19 05/08/19 05/08/19 15:06 16:19 17:00 Temperature 97.2 F L Pulse Rate 70 70 70 Respiratory 16 16 16 Rate Blood Pressure 98/42 110/44 91/43 O2 Sat by Pulse 99 94 L 95 Oximetry 05/08/19 05/08/19 18:00 18:30 Temperature Pulse Rate 82 73 Respiratory 12 18 Rate Blood Pressure 93/32 101/44 O2 Sat by Pulse 94 L 97 Oximetry - Reevaluation(s) Reevaluation #1: 05/08/19 16:43 medical records reviewed Reevaluation #2: 05/08/19 19:01 she does not feel well continued to feel weak and swollen with shortness of breath - Consultations Consultation #1: patient will be admitted to Dr. Ma for Dr. Hdz EKG Findings - EKG Comments: EKG Findings:: EKG shows sinus rhythm rate of 74, VA 154, QRS 104, QTC 492 Medical Decision Making - Medical Decision Making 73 female for CHF exacerbation shortness of breath and significant edema with weekend. Patient is new onset renal failure she has had renal failure with dialysis in the past but has not had dialysis for greater than 2 years. Patient will be admitted for likely need dialysis in the future - Lab Data Result diagrams: 05/08/19 15:05/08/19 15: Lab Results 05/08/19 05/08/19 05/08/19 Range/Units 15:19 15: 15: WBC 4.2 (3.8-10.6) k/uL RBC 3.49 L (3.80-5.40) m/uL Hgb 10.3 L (11.4-16.0) gm/dL Hct 31.7 L (34.0-46.0) % MCV 90.8 (80.0-100.0) fL MCH 29.5 (25.0-35.0) pg MCHC 32.5 (31.0-37.0) g/dL RDW 15.6 H (11.5-15.5) % Plt Count 176 (150-450) k/uL Neutrophils % 72 % Lymphocytes % 15 % Monocytes % 8 % Eosinophils % 1 % Basophils % 0 % Neutrophils # 3.0 (1.3-7.7) k/uL Lymphocytes # 0.7 L (1.0-4.8) k/uL Monocytes # 0.3 (0-1.0) k/uL Eosinophils # 0.1 (0-0.7) k/uL Basophils # 0.0 (0-0.2) k/uL Hypochromasia Slight PT (9.0-12.0) sec INR (<1.2) APTT (22.0-30.0) sec Sodium 133 L (137-145) mmol/L Potassium 5.0 (3.5-5.1) mmol/L Chloride 96 L (98-107) mmol/L Carbon Dioxide 19 L (22-30) mmol/L Anion Gap 18 mmol/L BUN 75 H (7-17) mg/dL Creatinine 4.23 H (0.52-1.04) mg/dL Est GFR (CKD-EPI)AfAm 11 (>60 ml/min/1.73 sqM) Est GFR (CKD-EPI)NonAf 10 (>60 ml/min/1.73 sqM) Glucose 164 H (74-99) mg/dL Plasma Lactic Acid Young 1.2 (0.7-2.0) mmol/L Calcium 7.8 L (8.4-10.2) mg/dL Phosphorus 9.5 H* (2.5-4.5) mg/dL Magnesium 2.0 (1.6-2.3) mg/dL Total Bilirubin 0.7 (0.2-1.3) mg/dL AST 59 H (14-36) U/L ALT 25 (4-34) U/L Alkaline Phosphatase 109 (38-126) U/L Creatine Kinase 737 H (30-135) U/L Troponin I (0.000-0.034) ng/mL Total Protein 6.9 (6.3-8.2) g/dL Albumin 4.0 (3.5-5.0) g/dL TSH 11.300 H (0.465-4.680) mIU/L Urine Color Urine Appearance (Clear) Urine pH (5.0-8.0) Ur Specific [place] (1.001-1.035) Urine Protein (Negative) Urine Glucose (UA) (Negative) Urine Ketones (Negative) Urine Blood (Negative) Urine Nitrite (Negative) Urine Bilirubin (Negative) Urine Urobilinogen (<2.0) mg/dL Ur Leukocyte Esterase (Negative) Urine RBC (0-5) /hpf Urine WBC (0-5) /hpf Ur Squamous Epith Cells (0-4) /hpf Amorphous Sediment (None) /hpf Urine Bacteria (None) /hpf Urine Mucus (None) /hpf 05/08/19 05/08/19 05/08/19 Range/Units 15:19 15:19 17:14 WBC (3.8-10.6) k/uL RBC (3.80-5.40) m/uL Hgb (11.4-16.0) gm/dL Hct (34.0-46.0) % MCV (80.0-100.0) fL MCH (25.0-35.0) pg MCHC (31.0-37.0) g/dL RDW (11.5-15.5) % Plt Count (150-450) k/uL Neutrophils % % Lymphocytes % % Monocytes % % Eosinophils % % Basophils % % Neutrophils # (1.3-7.7) k/uL Lymphocytes # (1.0-4.8) k/uL Monocytes # (0-1.0) k/uL Eosinophils # (0-0.7) k/uL Basophils # (0-0.2) k/uL Hypochromasia PT 10.8 (9.0-12.0) sec INR 1.0 (<1.2) APTT 27.6 (22.0-30.0) sec Sodium (137-145) mmol/L Potassium (3.5-5.1) mmol/L Chloride (98-107) mmol/L Carbon Dioxide (22-30) mmol/L Anion Gap mmol/L BUN (7-17) mg/dL Creatinine (0.52-1.04) mg/dL Est GFR (CKD-EPI)AfAm (>60 ml/min/1.73 sqM) Est GFR (CKD-EPI)NonAf (>60 ml/min/1.73 sqM) Glucose (74-99) mg/dL Plasma Lactic Acid Young (0.7-2.0) mmol/L Calcium (8.4-10.2) mg/dL Phosphorus (2.5-4.5) mg/dL Magnesium (1.6-2.3) mg/dL Total Bilirubin (0.2-1.3) mg/dL AST (14-36) U/L ALT (4-34) U/L Alkaline Phosphatase (38-126) U/L Creatine Kinase (30-135) U/L Troponin I 0.028 (0.000-0.034) ng/mL Total Protein (6.3-8.2) g/dL Albumin (3.5-5.0) g/dL TSH (0.465-4.680) mIU/L Urine Color Yellow Urine Appearance Cloudy H (Clear) Urine pH 5.0 (5.0-8.0) Ur Specific [place] 1.013 (1.001-1.035) Urine Protein Negative (Negative) Urine Glucose (UA) Negative (Negative) Urine Ketones Negative (Negative) Urine Blood Negative (Negative) Urine Nitrite Negative (Negative) Urine Bilirubin Negative (Negative) Urine Urobilinogen <2.0 (<2.0) mg/dL Ur Leukocyte Esterase Negative (Negative) Urine RBC <1 (0-5) /hpf Urine WBC 1 (0-5) /hpf Ur Squamous Epith Cells 1 (0-4) /hpf Amorphous Sediment Rare H (None) /hpf Urine Bacteria Rare H (None) /hpf Urine Mucus Rare H (None) /hpf - Radiology Data Radiology results: report reviewed (CXR is positive for CHF), image reviewed Disposition Clinical Impression: CHF exacerbation, Weakness, ARF (acute renal failure), Acute pulmonary edema Disposition: ADMITTED IP TO THIS HOSP Condition: Fair Is patient prescribed a controlled substance at d/c from ED?: No Referrals: Virgil Hdz MD [Primary Care Provider] - 1-2 days
--- NOTE | 2019-05-08 16:04 | XR ---
EXAMINATION TYPE: XR chest 2V DATE OF EXAM: 05/08/2019 COMPARISON: Prior chest x-ray 01/26/2019 HISTORY: Shortness of breath and weakness TECHNIQUE: Frontal and lateral views of the chest are obtained. FINDINGS: There is no focal air space opacity, pleural effusion, or pneumothorax seen. The cardiac silhouette size is enlarged as on prior, patient is post median sternotomy. Generator is present in the right pectoral region, there are leads in the right atrium and ventricle. Aorta is dense. The os seous structures are intact. Prominent lung volumes with flattening the hemidiaphragms may be indicat naren of underlying COPD. Suspect pulmonary artery is prominent, correlate for pulmonary artery hyperte nsion. Central vascularity is increased. IMPRESSION: Correlate for pulmonary venous hypertension and early interstitial edema. Suspect pulmon kristin artery hypertension. Marked cardiomegaly.
[2019-05-08 16:13] LABS: Basophils % (A) 0 %; Eosinophils # (A) 0.1 k/uL (0-0.7); Eosinophils % (A) 1 %; HCT 31.7 % (34.0-46.0); HGB 10.3 gm/dL (11.4-16.0); Hypochromasia Slight; Lymphocytes # (A) 0.7 k/uL (1.0-4.8); Lymphocytes % (A) 15 %; MCH 29.5 pg (25.0-35.0); MCHC 32.5 g/dL (31.0-37.0); MCV 90.8 fL (80.0-100.0); Mean Platelet Volume 8.6; Monocytes # (A) 0.3 k/uL (0-1.0); Monocytes % (A) 8 %; Neutrophils % (A) 72 %; Platelet Count 176 k/uL (150-450); RBC 3.49 m/uL (3.80-5.40); RDW 15.6 % (11.5-15.5); WBC 4.2 k/uL (3.8-10.6)
[2019-05-08 16:23] LABS: Partial Thromboplastin Time 27.6 sec (22.0-30.0); Prothrombin Time 10.8 sec (9.0-12.0)
[2019-05-08 16:46] LABS: Calcium 7.8 mg/dL (8.4-10.2); Total Bilirubin 0.7 mg/dL (0.2-1.3); Total Protein 6.9 g/dL (6.3-8.2)
[2019-05-08 16:51] LABS: Phosphorus 9.5 mg/dL (2.5-4.5)
[2019-05-08] MEDS ORDERED: ONDANSETRON 4 MG/2 ML VIAL IVP STA (16:53)
[2019-05-08 17:53] LABS: Amorphous Sediment,Urine Rare /hpf; Appearance,Urine Cloudy (Clear); Bacteria,Urine Rare /hpf; Bilirubin,Urine Negative (Negative); Blood,Urine Negative (Negative); Color,Urine Yellow; Glucose,Urine (UA) Negative (Negative); Ketones,Urine Negative (Negative); Leukocyte Esterase,Urine Negative (Negative); Mucus,Urine Rare /hpf; Nitrite,Urine Negative (Negative); Protein,Urine Negative (Negative); RBC,Urine <1 /hpf (0-5); Specific Gravity,Urine 1.013 (1.001-1.035); Squamous Epithelial Cell,Urine 1 /hpf (0-4); Urobilinogen,Urine <2.0 mg/dL (<2.0); WBC,Urine 1 /hpf (0-5)
[2019-05-08 20:19] LABS: Glucose,Whole Blood 144 mg/dL (75-99)
[2019-05-08] MEDS ORDERED: oxyCODONE-APAP 10-325MG 1 EACH TAB PO PRN (20:46)
[2019-05-08] MEDS: PANTOPRAZOLE 40 MG TABLET PO SCH (21:29)
[2019-05-08] MEDS: GABAPENTIN 300 MG CAP PO SCH (21:29)
[2019-05-08] MEDS: FUROSEMIDE 10 MG/ML 4 ML VIAL IV SCH (21:29)
[2019-05-08] MEDS: INSULIN ASPART (NovoLOG) 100 UNIT/ML VIAL SQ SCH (21:30)
[2019-05-08] MEDS: METOPROLOL TARTRATE 25 MG TAB PO SCH (21:30)
[2019-05-09 06:10] LABS: Glucose,Whole Blood 137 mg/dL (75-99)
[2019-05-09] MEDS: PANTOPRAZOLE 40 MG TABLET PO SCH (07:56)
[2019-05-09] MEDS: INSULIN ASPART (NovoLOG) 100 UNIT/ML VIAL SQ SCH ×4 (07:56→20:07)
[2019-05-09] MEDS: LEVOTHYROXINE 125 MCG TAB PO SCH (07:56)
[2019-05-09] MEDS ORDERED: ENOXAPARIN 40 MG/0.4 ML SYRINGE SQ SCH (09:00)
[2019-05-09] MEDS ORDERED: LOSARTAN 50 MG TAB PO SCH (09:00)
[2019-05-09 10:11] LABS: Albumin 3.9 g/dL (3.5-5.0); Calcium 7.5 mg/dL (8.4-10.2); Potassium 5.1 mmol/L (3.5-5.1); Total Bilirubin 0.6 mg/dL (0.2-1.3); Total Protein 6.9 g/dL (6.3-8.2)
[2019-05-09 10:15] LABS: HCT 31.3 % (34.0-46.0); Hypochromasia Moderate; MCH 29.6 pg (25.0-35.0); MCV 92.5 fL (80.0-100.0); Mean Platelet Volume 9.1; Platelet Count 156 k/uL (150-450); RBC 3.39 m/uL (3.80-5.40); RDW 15.6 % (11.5-15.5); WBC 5.2 k/uL (3.8-10.6)
[2019-05-09 10:27] LABS: Anisocytosis (M) Present; Lymphocytes # (M) 0.68 k/uL (1.0-4.8); Monocytes # (M) 0.47 k/uL (0-1.0); Neutrophils # (M) 4.06 k/uL (1.3-7.7); Neutrophils % (M) 78 %; Nucleated Red Blood Cells 0 /100 WBC (0-0); Poikilocytosis (M) Present; Total Cells Counted 100
[2019-05-09] MEDS: FUROSEMIDE 10 MG/ML 4 ML VIAL IV SCH (10:30)
[2019-05-09] MEDS: GABAPENTIN 300 MG CAP PO SCH (10:31)
--- NOTE | 2019-05-09 10:55 | P.HPIM ---
History of Present Illness Patient is a pleasant 71-year-old the female came in with complaints of bilateral lower limb edema. Edema improved with IV Lasix. Patient is found to have acute renal failure with a creatinine of around 4 patient baseline creatinine appears to be around 0.7 from last November. Patient doesn't have any history of congestive heart failure patient although does have pulmonary hypertension may have right-sided heart failure. Patient in the past had acute blood necrosis from sepsis which appears to be secondary to vertebral fraction. After which patient was a temporally on hemodialysis. Patient has a unused fistula in the right arm. Patient's phosphorus is elevated to 9.5 with calcium of around 7.1. Patient denied any orthopnea proximal nocturnal dyspnea. Review of Systems I REVIEW OF SYSTEMS: CONSTITUTIONAL: No fever, no malaise, no fatigue. HEENT: No recent visual problems or hearing problems. Denied any sore throat. CARDIOVASCULAR: No chest pain, orthopnea, PND, no palpitations, no syncope. PULMONARY: No shortness of breath, no cough, no hemoptysis. GASTROINTESTINAL: No diarrhea, no nausea, no vomiting, no abdominal pain. NEUROLOGICAL: No headaches, no weakness, no numbness. HEMATOLOGICAL: Denies any bleeding or petechiae. GENITOURINARY: Denies any burning micturition, frequency, or urgency. MUSCULOSKELETAL/RHEUMATOLOGICAL: Denies any joint pain, swelling, or any muscle pain. ENDOCRINE: Denies any polyuria or polydipsia. The rest of the 14-point review of systems is negative. Past Medical History Past Medical History: Atrial Fibrillation, Coronary Artery Disease (CAD), Heart Failure, Diabetes Mellitus, Deep Vein Thrombosis (DVT), Hyperlipidemia, Hypertension, Renal Disease, Thyroid Disorder Additional Past Medical History / Comment(s): neuropathy,lupus, back pain, BACK WOUND-Healed, USES CANE , CATARACT bilat. History of Any Multi-Drug Resistant Organisms: VRE Date of last positivie culture/infection: 04/01/16 MDRO Source:: back Past Surgical History: Appendectomy, Back Surgery, Breast Surgery, Cholecystectomy, Coronary Bypass/CABG, Pacemaker Additional Past Surgical History / Comment(s): thyroidectomy. triple bypass 2000, CATARACT bilat EYE 11/2016, LUE dialysis port. 5 back sx. pt had 2 ablations in [place] for afib- unsuccessful. Past Anesthesia/Blood Transfusion Reactions: No Reported Reaction Additional Past Anesthesia/Blood Transfusion Reaction / Comment(s): CLAUSTROPHOBIA. HAD A BLOOD TRANSFUSION 1968-NO REACTION. Type of Cardiac Device: Permanent Pacemaker Device Placement Date:: january 2018 Smoking Status: Former smoker - Past Family History Father Family Medical History: Cancer Additional Family Medical History / Comment(s): prostate cancer Mother Family Medical History: Cancer, Congestive Heart Failure (CHF), Diabetes Mellitus, Hyperlipidemia, Hypertension, Osteoarthritis (OA) Additional Family Medical History / Comment(s): colon cancer Brother(s) Family Medical History: Coronary Artery Disease (CAD), Deep Vein Thrombosis (DVT) Additional Family Medical History / Comment(s): back surgery Sister(s) Family Medical History: Hyperlipidemia Additional Family Medical History / Comment(s): thyroid cancer Medications and Allergies Home Medications Medication Instructions Recorded Confirmed Type Levothyroxine Sodium [Synthroid] 125 mcg PO DAILY 11/27/15 05/08/19 History Insulin NPL/Insulin Lispro See Protocol SQ AC-TID PRN 12/03/16 05/08/19 History [humaLOG MIX 75-25 VIAL] Aspirin EC [Ecotrin Low Dose] 81 mg PO DAILY 09/09/18 05/08/19 History Insulin NPL/Insulin Lispro 5 units SQ AC-TID 09/09/18 05/08/19 History [humaLOG MIX 75-25 VIAL] Losartan [Cozaar] 50 mg PO DAILY 09/09/18 05/08/19 History oxyCODONE-APAP 10-325MG [Percocet 1 tab PO Q6H PRN 01/26/19 05/08/19 History 10-325 mg] Atorvastatin [Lipitor] 80 mg PO DAILY #30 tab 01/27/19 05/08/19 Rx Metoprolol Tartrate [Lopressor] 25 mg PO BID #60 tab 01/27/19 05/08/19 Rx Nitroglycerin Sl Tabs [Nitrostat] 0.4 mg SUBLINGUAL Q5M PRN #50 tab 01/27/19 05/08/19 Rx Bumetanide [Bumex] 1 mg PO TID #21 tablet 02/24/19 05/08/19 Rx Gabapentin [Neurontin] 600 mg PO TID #21 tab 02/24/19 05/08/19 Rx Isosorbide Mononitrate ER [Imdur] 30 mg PO DAILY #7 tab 02/24/19 05/08/19 Rx Pantoprazole Sodium [Protonix] 40 mg PO BID 05/08/19 05/08/19 History Allergies Allergy/AdvReac Type Severity Reaction Status Date / Time No Known Allergies Allergy Verified 05/08/19 19:41 Physical Exam Vitals: Vital Signs Temp Pulse Pulse Resp BP BP Pulse Ox 05/09/19 09:29 86/47 05/09/19 09:07 92/57 05/09/19 09:06 97.4 F L 76 20 79/46 95 05/09/19 03:37 97.5 F L 69 18 80/52 94 L 05/09/19 00:00 97.3 F L 77 18 105/62 97 05/08/19 19:50 97.9 F 85 19 134/58 97 05/08/19 18:30 73 18 101/44 97 05/08/19 18:00 82 12 93/32 94 L 05/08/19 17:00 70 16 91/43 95 05/08/19 16:19 70 16 110/44 94 L 05/08/19 15:06 97.2 F L 70 16 98/42 99 Intake and Output 05/08/19 05/09/19 05/09/19 22:59 06:59 14:59 Intake Total 540 Output Total 200 Balance 540 -200 Intake: Oral 540 Output: Urine 200 Other: # Voids 1 1 Weight 117.934 kg 116.7 kg PHYSICAL EXAMINATION: GENERAL: The patient is alert and oriented x3, not in any acute distress. Well developed, well nourished. HEENT: Pupils are round and equally reacting to light. EOMI. No scleral icterus. No conjunctival pallor. Normocephalic, atraumatic. No pharyngeal erythema. No thyromegaly. CARDIOVASCULAR: S1 and S2 present. No murmurs, rubs, or gallops. PULMONARY: Chest is clear to auscultation, no wheezing or crackles. ABDOMEN: Soft, nontender, nondistended, normoactive bowel sounds. No palpable organomegaly. MUSCULOSKELETAL: No joint swelling or deformity. EXTREMITIES: No cyanosis, clubbing, minimal pedal edema only extending up to both feet NEUROLOGICAL: Gross neurological examination did not reveal any focal deficits. SKIN: No rashes. Results CBC & Chem 7: 12/22/19 09:40 05/09/19 09:40 Labs: Abnormal Lab Results - Last 24 Hours (Table) 05/08/19 05/08/19 05/08/19 Range/Units 15:19 15:19 17:14 RBC 3.49 L (3.80-5.40) m/uL Hgb 10.3 L (11.4-16.0) gm/dL Hct 31.7 L (34.0-46.0) % RDW 15.6 H (11.5-15.5) % Lymphocytes # 0.7 L (1.0-4.8) k/uL Lymphocytes # (Manual) (1.0-4.8) k/uL Sodium 133 L (137-145) mmol/L Chloride 96 L (98-107) mmol/L Carbon Dioxide 19 L (22-30) mmol/L BUN 75 H (7-17) mg/dL Creatinine 4.23 H (0.52-1.04) mg/dL Glucose 164 H (74-99) mg/dL POC Glucose (mg/dL) (75-99) mg/dL Calcium 7.8 L (8.4-10.2) mg/dL Phosphorus 9.5 H* (2.5-4.5) mg/dL AST 59 H (14-36) U/L Creatine Kinase 737 H (30-135) U/L TSH 11.300 H (0.465-4.680) mIU/L Urine Appearance Cloudy H (Clear) Amorphous Sediment Rare H (None) /hpf Urine Bacteria Rare H (None) /hpf Urine Mucus Rare H (None) /hpf 05/08/19 05/09/19 05/09/19 Range/Units 20:18 06:08 09:40 RBC 3.39 L (3.80-5.40) m/uL Hgb 10.0 L (11.4-16.0) gm/dL Hct 31.3 L (34.0-46.0) % RDW 15.6 H (11.5-15.5) % Lymphocytes # (1.0-4.8) k/uL Lymphocytes # (Manual) 0.68 L (1.0-4.8) k/uL Sodium (137-145) mmol/L Chloride (98-107) mmol/L Carbon Dioxide (22-30) mmol/L BUN (7-17) mg/dL Creatinine (0.52-1.04) mg/dL Glucose (74-99) mg/dL POC Glucose (mg/dL) 144 H 137 H (75-99) mg/dL Calcium (8.4-10.2) mg/dL Phosphorus (2.5-4.5) mg/dL AST (14-36) U/L Creatine Kinase (30-135) U/L TSH (0.465-4.680) mIU/L Urine Appearance (Clear) Amorphous Sediment (None) /hpf Urine Bacteria (None) /hpf Urine Mucus (None) /hpf 05/09/19 Range/Units 09:40 RBC (3.80-5.40) m/uL Hgb (11.4-16.0) gm/dL Hct (34.0-46.0) % RDW (11.5-15.5) % Lymphocytes # (1.0-4.8) k/uL Lymphocytes # (Manual) (1.0-4.8) k/uL Sodium 133 L (137-145) mmol/L Chloride 97 L (98-107) mmol/L Carbon Dioxide 19 L (22-30) mmol/L BUN 83 H (7-17) mg/dL Creatinine 4.95 H (0.52-1.04) mg/dL Glucose 137 H (74-99) mg/dL POC Glucose (mg/dL) (75-99) mg/dL Calcium 7.5 L (8.4-10.2) mg/dL Phosphorus (2.5-4.5) mg/dL AST 57 H (14-36) U/L Creatine Kinase (30-135) U/L TSH (0.465-4.680) mIU/L Urine Appearance (Clear) Amorphous Sediment (None) /hpf Urine Bacteria (None) /hpf Urine Mucus (None) /hpf Thrombosis Risk Factor Assmnt - Choose All That Apply Any of the Below Risk Factors Present?: Yes Each Factor Represents 1 point: Obesity (BMI >25), Swollen legs (current) Other Risk Factors: Yes Each Risk Factor Represents 3 Points: Age 75 years or older Other congenital or acquired thrombophilia - If yes, enter type in comment: No Thrombosis Risk Factor Assessment Total Risk Factor Score: 5 Thrombosis Risk Factor Assessment Level: High Risk Assessment and Plan Plan: -Bilateral pedal edema which resolved secondary to right-sided heart failure, cor pulmonale. Right now this is not an issue patient has acute renal failure secondary to diuretic therapy and hypotension. -acute renal failure: Secondary to diuretic therapy which will be held and the patient was started on IV fluids at 75 mL per hour, we'll also start her on PhosLo repeat basic volley profile tomorrow. Losartan will be held and we'll cut down the dose of Capoten pain and we'll cut down the dose of her Percocet as well. -History of hemodialysis dependence in the past -Hypertension: Secondary to diuretic therapy and OTILIO inhibitor which will be held secondary to renal failure -Hyponatremia hypovolemic hyponatremia -Hyperphosphatasemia secondary to renal failure -Elevated TSH, last 24 possible sick euthyroid syndrome patient is on levothyroxine for hepatitis from same dose will be continued for now -DVT in the past -Atrial fibrillation -Type 2 diabetes mellitus with diabetic peripheral neuropathy -Hypothyroidism Due to prophylaxis with subcu heparin enoxaparin will be discontinued because of renal dysfunction
[2019-05-09] MEDS: ASPIRIN 81 MG PO SCH (11:01)
[2019-05-09] MEDS: ATORVASTATIN 80 MG TAB PO SCH (11:01)
[2019-05-09] MEDS: ISOSORBIDE MONONITRATE ER 30 MG TAB.ER.24H PO SCH (11:01)
[2019-05-09] MEDS: METOPROLOL TARTRATE 25 MG TAB PO SCH ×2 (11:01→20:17)
[2019-05-09] MEDS: oxyCODONE-APAP 5-325MG 1 EACH TAB PO PRN (11:02)
[2019-05-09] MEDS: SODIUM CHLORIDE 0.9% 1,000 ML IV SCH (11:02)
--- NOTE | 2019-05-09 11:03 | P.NPCON ---
History of Present Illness - Reason for Consult Consult date: 05/09/19 acute renal failure - Chief Complaint Acute kidney injury - History of Present Illness This is a 73-year-old female seen in consultation because of acute kidney injury. Her creatinine was 0.89 on 12/06/2018, went up to 1.49 on 01/26/2019 then improved to 1.18 on 02/24/2019 and on admission yesterday was 4.23. She came in because of the complaints of on and off edema of legs with cellulitis. Supposedly she was given antibiotics for a month about 2 months ago. It may be Cipro. Denies taking Bactrim nonsteroidals. No changes in her diuretics she was on Bumex 3 times a day at home. Her edema did decrease recently. She came in because of decreased urine output and generalized weakness. She has chronic pain syndrome uses Percocet In the past she is on dialysis in 2017 for about 6 months because of acute kidney injury came off of dialysis and has a on use fistula which is small but superficial on her left elbow She denies any dizziness nausea vomiting fever chills no history of bladder dysfunction or any hematuria kidney stones. Her past history significant for diabetes mellitus, atrial fibrillation, coronary artery bypass graft, DVT, pacemaker, breast cancer. She's had multiple back surgeries as well Past Medical History Past Medical History: Atrial Fibrillation, Coronary Artery Disease (CAD), Heart Failure, Diabetes Mellitus, Deep Vein Thrombosis (DVT), Hyperlipidemia, Hypertension, Renal Disease, Thyroid Disorder Additional Past Medical History / Comment(s): neuropathy,lupus, back pain, BACK WOUND-Healed, USES CANE , CATARACT bilat. History of Any Multi-Drug Resistant Organisms: VRE Date of last positivie culture/infection: 04/01/16 MDRO Source:: back Past Surgical History: Appendectomy, Back Surgery, Breast Surgery, Cholecystectomy, Coronary Bypass/CABG, Pacemaker Additional Past Surgical History / Comment(s): thyroidectomy. triple bypass 2000, CATARACT bilat EYE 11/2016, LUE dialysis port. 5 back sx. pt had 2 ablations in [place] for afib- unsuccessful. Past Anesthesia/Blood Transfusion Reactions: No Reported Reaction Additional Past Anesthesia/Blood Transfusion Reaction / Comment(s): CLAUSTROPHOBIA. HAD A BLOOD TRANSFUSION 1968-NO REACTION. Type of Cardiac Device: Permanent Pacemaker Device Placement Date:: january 2018 Smoking Status: Former smoker - Past Family History Father Family Medical History: Cancer Additional Family Medical History / Comment(s): prostate cancer Mother Family Medical History: Cancer, Congestive Heart Failure (CHF), Diabetes Mellitus, Hyperlipidemia, Hypertension, Osteoarthritis (OA) Additional Family Medical History / Comment(s): colon cancer Brother(s) Family Medical History: Coronary Artery Disease (CAD), Deep Vein Thrombosis (D VT) Additional Family Medical History / Comment(s): back surgery Sister(s) Family Medical History: Hyperlipidemia Additional Family Medical History / Comment(s): thyroid cancer Medications and Allergies Home Medications Medication Instructions Recorded Confirmed Type Levothyroxine Sodium [Synthroid] 125 mcg PO DAILY 11/27/15 05/08/19 History Insulin NPL/Insulin Lispro See Protocol SQ AC-TID PRN 12/03/16 05/08/19 History [humaLOG MIX 75-25 VIAL] Aspirin EC [Ecotrin Low Dose] 81 mg PO DAILY 09/09/18 05/08/19 History Insulin NPL/Insulin Lispro 5 units SQ AC-TID 09/09/18 05/08/19 History [humaLOG MIX 75-25 VIAL] Losartan [Cozaar] 50 mg PO DAILY 09/09/18 05/08/19 History oxyCODONE-APAP 10-325MG [Percocet 1 tab PO Q6H PRN 01/26/19 05/08/19 History 10-325 mg] Atorvastatin [Lipitor] 80 mg PO DAILY #30 tab 01/27/19 05/08/19 Rx Metoprolol Tartrate [Lopressor] 25 mg PO BID #60 tab 01/27/19 05/08/19 Rx Nitroglycerin Sl Tabs [Nitrostat] 0.4 mg SUBLINGUAL Q5M PRN #50 tab 01/27/19 05/08/19 Rx Bumetanide [Bumex] 1 mg PO TID #21 tablet 02/24/19 05/08/19 Rx Gabapentin [Neurontin] 600 mg PO TID #21 tab 02/24/19 05/08/19 Rx Isosorbide Mononitrate ER [Imdur] 30 mg PO DAILY #7 tab 02/24/19 05/08/19 Rx Pantoprazole Sodium [Protonix] 40 mg PO BID 05/08/19 05/08/19 History Allergies Allergy/AdvReac Type Severity Reaction Status Date / Time No Known Allergies Allergy Verified 05/08/19 19:41 Physical Exam Vitals: Vital Signs Temp Pulse Pulse Resp BP BP Pulse Ox 05/09/19 09:29 86/47 05/09/19 09:07 92/57 05/09/19 09:06 97.4 F L 76 20 79/46 95 05/09/19 03:37 97.5 F L 69 18 80/52 94 L 05/09/19 00:00 97.3 F L 77 18 105/62 97 05/08/19 19:50 97.9 F 85 19 134/58 97 05/08/19 18:30 73 18 101/44 97 05/08/19 18:00 82 12 93/32 94 L 05/08/19 17:00 70 16 91/43 95 05/08/19 16:19 70 16 110/44 94 L 05/08/19 15:06 97.2 F L 70 16 98/42 99 Intake and Output 05/08/19 05/09/19 05/09/19 22:59 06:59 14:59 Intake Total 540 Output Total 200 Balance 540 -200 Intake: Oral 540 Output: Urine 200 Other: # Voids 1 1 Weight 117.934 kg 116.7 kg On examination is awake alert oriented comfortable HEENT exam no JVP neck is supple no facial asymmetry no lymphadenopathy Lungs are clear to auscultation good air entry bilaterally Heart sounds are unremarkable for any murmur rub gallop Abdomen soft nontender no organomegaly ascites masses no suprapubic tenderness Extremity exam was minimal edema with minimal redness in the lower third of her both legs Neurologically awake alert oriented No asterixis She was able to stand up and there was no orthostatic changes Results - Lab Results Most recent lab results Calcium 7.5 mg/dL (8.4-10.2) L 05/09/19 09:40 Phosphorus 9.5 mg/dL (2.5-4.5) H* 05/08/19 15:19 Magnesium 2.0 mg/dL (1.6-2.3) 05/08/19 15:19 05/09/19 09:40 05/09/19 09:40 Assessment and Plan Assessment: Impression 1. Acute kidney injury from volume depletion from Bumex most likely. Her urinalysis is benign. 2. History of hemodialysis dependent acute kidney injury in 2017 for 6 months. 3. Mild chronic kidney disease stage II, no proteinuria on urinalysis on 05/08/2019. Her Creatinines have been 0.89 on 12/06/2018, 1.18 on 02/24/2019 4. History of diabetes, atrial fibrillation, ASHD, coronary artery bypass vineet t, pacemaker, CA breast in the past 5. Anemia off Chronic illness rule out iron deficiency. 6. Mild degree of gap acidosis with bicarb of 19 and anion gap of 17 secondary to acute kidney injury and mild chronic kidney disease 7. Hyperphosphatemia secondary to acute kidney injury. Recommendations 1. Start IV normal saline 75 mL an hour 2. Calcium acetate one 3 times a day with meals 3. Check orthostatic changes again 4. Ultrasound of the kidneys 5. Urine protein to creatinine ratio 6. Sodium bicarb 650 3 times a day 7. Check iron saturation 8. Check bladder scan postvoid
--- NOTE | 2019-05-09 12:01 | US ---
EXAMINATION TYPE: US kidneys/renal and bladder DATE OF EXAM: 05/09/2019 COMPARISON: NONE CLINICAL HISTORY: tyler. EXAM MEASUREMENTS: Right Kidney: 11.4 x 4.6 x 4.7 cm Left Kidney: 11.5 x 5.0 x 5.0 cm Patient of large body habitus with interstitial edema, technically difficult study. Right Kidney: no evidence of hydro, somewhat limited visualization Left Kidney: no evidence of hydro, somewhat limited visualization Bladder: not distended, not seen IMPRESSION: LIMITED EXAMINATION SHOWING NO EVIDENCE OF HYDRONEPHROSIS AT THIS TIME.
[2019-05-09 12:02] LABS: Glucose,Whole Blood 151 mg/dL (75-99)
--- NOTE | 2019-05-09 12:13 | P.CRDCN ---
History of Present Illness Consult date: 05/09/19 History of present illness: This is a 73-year-old female with history of ischemic or disease with a previous bypass surgery, permanent pacemaker implantation and history of possible atrial fibrillation. Patient home medication do not show that patient was on anticoagulation. She has history of acute renal failure for which she wasn't temporally on hemodialysis. She does have a fistula in the left arm. She came basically to the hospital with complaints of weakness and fatigue and increasing pedal swelling and low urinary output. She was on Bumex one tablet 3 times daily at home along with metoprolol and also OTILIO inhibitor R's. Her creatinine was 4.2 on admission. She denied any chest pain or shortness of breath. An EKG today showed a sinus rhythm though there is significant baseline artifacts. Chest x-rays are size to mild CHF. It was felt by nephrology that acute renal injury could be related to dehydration secondary to Bumex. Patient is being i nitiated on IV fluids at 75 mL/h. An echocardiogram done recently showed normal LV function. Further recommendations will depend upon clinical course. Her lab values showed a mild anemia and a potassium of 5.1 and a TSH of 11.3. 1 troponin value was within normal limits Review of Systems As per the chart Past Medical History Past Medical History: Atrial Fibrillation, Coronary Artery Disease (CAD), Heart Failure, Diabetes Mellitus, Deep Vein Thrombosis (DVT), Hyperlipidemia, Hypertension, Renal Disease, Thyroid Disorder Additional Past Medical History / Comment(s): neuropathy,lupus, back pain, BACK WOUND-Healed, USES CANE , CATARACT bilat. History of Any Multi-Drug Resistant Organisms: VRE Date of last positivie culture/infection: 04/01/16 MDRO Source:: back Past Surgical History: Appendectomy, Back Surgery, Breast Surgery, Cholecystectomy, Coronary Bypass/CABG, Pacemaker Additional Past Surgical History / Comment(s): thyroidectomy. triple bypass 2000, CATARACT bilat EYE 11/2016, LUE dialysis port. 5 back sx. pt had 2 ablations in [place] for afib- unsuccessful. Past Anesthesia/Blood Transfusion Reactions: No Reported Reaction Additional Past Anesthesia/Blood Transfusion Reaction / Comment(s): CLAUSTROPHOBIA. HAD A BLOOD TRANSFUSION 1968-NO REACTION. Type of Cardiac Device: Permanent Pacemaker Device Placement Date:: january 2018 Smoking Status: Former smoker - Past Family History Father Family Medical History: Cancer Additional Family Medical History / Comment(s): prostate cancer Mother Family Medical History: Cancer, Congestive Heart Failure (CHF), Diabetes Mellitus, Hyperlipidemia, Hypertension, Osteoarthritis (OA) Additional Family Medical History / Comment(s): colon cancer Brother(s) Family Medical History: Coronary Artery Disease (CAD), Deep Vein Thrombosis (DVT) Additional Family Medical History / Comment(s): back surgery Sister(s) Family Medical History: Hyperlipidemia Additional Family Medical History / Comment(s): thyroid cancer Medications and Allergies Home Medications Medication Instructions Recorded Confirmed Type Levothyroxine Sodium [Synthroid] 125 mcg PO DAILY 11/27/15 05/08/19 History Insulin NPL/Insulin Lispro See Protocol SQ AC-TID PRN 12/03/16 05/08/19 History [humaLOG MIX 75-25 VIAL] Aspirin EC [Ecotrin Low Dose] 81 mg PO DAILY 09/09/18 05/08/19 History Insulin NPL/Insulin Lispro 5 units SQ AC-TID 09/09/18 05/08/19 History [humaLOG MIX 75-25 VIAL] Losartan [Cozaar] 50 mg PO DAILY 09/09/18 05/08/19 History oxyCODONE-APAP 10-325MG [Percocet 1 tab PO Q6H PRN 01/26/19 05/08/19 History 10-325 mg] Atorvastatin [Lipitor] 80 mg PO DAILY #30 tab 01/27/19 05/08/19 Rx Metoprolol Tartrate [Lopressor] 25 mg PO BID #60 tab 01/27/19 05/08/19 Rx Nitroglycerin Sl Tabs [Nitrostat] 0.4 mg SUBLINGUAL Q5M PRN #50 tab 01/27/19 05/08/19 Rx Bumetanide [Bumex] 1 mg PO TID #21 tablet 02/24/19 05/08/19 Rx Gabapentin [Neurontin] 600 mg PO TID #21 tab 02/24/19 05/08/19 Rx Isosorbide Mononitrate ER [Imdur] 30 mg PO DAILY #7 tab 02/24/19 05/08/19 Rx Pantoprazole Sodium [Protonix] 40 mg PO BID 05/08/19 05/08/19 History Allergies Allergy/AdvReac Type Severity Reaction Status Date / Time No Known Allergies Allergy Verified 05/08/19 19:41 Physical Exam Vitals: Vital Signs Temp Pulse Pulse Resp BP BP Pulse Ox 05/09/19 09:29 86/47 05/09/19 09:07 92/57 05/09/19 09:06 97.4 F L 76 20 79/46 95 05/09/19 03:37 97.5 F L 69 18 80/52 94 L 05/09/19 00:00 97.3 F L 77 18 105/62 97 05/08/19 19:50 97.9 F 85 19 134/58 97 05/08/19 18:30 73 18 101/44 97 05/08/19 18:00 82 12 93/32 94 L 05/08/19 17:00 70 16 91/43 95 05/08/19 16:19 70 16 110/44 94 L 05/08/19 15:06 97.2 F L 70 16 98/42 99 Intake and Output 05/08/19 05/09/19 05/09/19 22:59 06:59 14:59 Intake Total 540 Output Total 200 Balance 540 -200 Intake: Oral 540 Output: Urine 200 Other: # Voids 1 1 Weight 117.934 kg 116.7 kg 116.7 kg GENERAL EXAM: Patient is alert and oriented and doesn't appear to be in any acute distress HEENT: Normocephalic. Normal reaction of pupils, equal size, normal range of extraocular motion. No erythema or exudates in the throat. NECK: No masses, no nuchal rigidity. CHEST: No chest wall deformity. LUNGS: Equal air entry with no crackles or wheeze. HEART: S1 and S2 normal with no audible mumurs or gallops. Regular rhythm, femorals equal on both sides.. ABDOMEN: No hepatosplenomegaly, normal bowel sounds, no guarding or rigidity. SKIN: No rashes CENTRAL NERVOUS SYSTEM: No focal deficits. EXTREMITIES: 2-3+ edema Results 05/09/19 09:40 05/09/19 09:40 Cardiac Enzymes 05/08/19 05/08/19 05/09/19 Range/Units 15:19 15:19 09:40 AST 59 H 57 H (14-36) U/L Troponin I 0.028 (0.000-0.034) ng/mL Coagulation 05/08/19 Range/Units 15: PT 10.8 (9.0-12.0) sec APTT 27.6 (22.0-30.0) sec CBC 05/08/19 05/09/19 Range/Units 15: 09:40 WBC 4.2 5.2 (3.8-10.6) k/uL RBC 3.49 L 3.39 L (3.80-5.40) m/uL Hgb 10.3 L 10.0 L (11.4-16.0) gm/dL Hct 31.7 L 31.3 L (34.0-46.0) % Plt Count 176 156 (150-450) k/uL Comprehensive Metabolic Panel 05/08/19 05/09/19 Range/Units 15: 09:40 Sodium 133 L 133 L (137-145) mmol/L Potassium 5.0 5.1 (3.5-5.1) mmol/L Chloride 96 L 97 L (98-107) mmol/L Carbon Dioxide 19 L 19 L (22-30) mmol/L BUN 75 H 83 H (7-17) mg/dL Creatinine 4.23 H 4.95 H (0.52-1.04) mg/dL Glucose 164 H 137 H (74-99) mg/dL Calcium 7.8 L 7.5 L (8.4-10.2) mg/dL AST 59 H 57 H (14-36) U/L ALT 25 27 (4-34) U/L Alkaline Phosphatase 109 103 (38-126) U/L Total Protein 6.9 6.9 (6.3-8.2) g/dL Albumin 4.0 3.9 (3.5-5.0) g/dL Current Medications Generic Name Dose Route Start Last Admin Trade Name Freq PRN Reason Stop Dose Admin Aspirin 81 mg 05/09/19 09:00 05/09/19 11:01 Aspirin PO 81 mg DAILY RUTH Administration Atorvastatin Calcium 80 mg 05/09/19 09:00 05/09/19 11:01 Lipitor PO 80 mg DAILY RUTH Administration Calcium Acetate 667 mg 05/09/19 12:30 Phoslo PO TID-W/MEALS [facility] Famotidine 20 mg 05/09/19 21:00 Pepcid PO BID [facility] Gabapentin 100 mg 05/09/19 16:00 Neurontin PO TID RUTH Heparin Sodium (Porcine) 5,000 unit 05/09/19 16:00 Heparin SQ Q8HR RUTH Sodium Chloride 1,000 mls @ 75 mls/hr 05/09/19 10:15 05/09/19 11:02 Saline 0.9% IV 75 mls/hr .[id number] RUTH Administration Insulin Aspart 0 unit 05/08/19 21:00 05/09/19 07:56 Novolog SQ Not Given ACHS [facility] Protocol Isosorbide Mononitrate 30 mg 05/09/19 09:00 05/09/19 11:01 Imdur PO 30 mg DAILY RUTH Administration Levothyroxine Sodium 125 mcg 05/09/19 06:30 05/09/19 07:56 Synthroid PO 125 mcg DAILY@0630 RUTH Administration Metoprolol Tartrate 25 mg 05/08/19 21:00 05/09/19 11:01 Lopressor PO 25 mg BID RUTH Administration Oxycodone/Acetaminophen 1 each 05/09/19 10:03 05/09/19 11:02 Percocet 5-325 PO 1 each Q6HR PRN Administration Pain Sodium Bicarbonate 650 mg 05/09/19 16:00 Sodium Bicarbonate Tab PO TID RUTH Intake and Output 05/08/19 05/09/19 05/09/19 22:59 06:59 14:59 Intake Total 540 Output Total 200 Balance 540 -200 Intake: Oral 540 Output: Urine 200 Other: # Voids 1 1 Weight 117.934 kg 116.7 kg 116.7 kg Patient Weight 05/10/19 06:59 Weight 116.7 kg 05/09/19 09:40 05/09/19 09:40 EKG Interpretations (text) Sinus rhythm Assessment and Plan (1) Anemia of chronic disease Current Visit: Yes Status: Acute Code(s): D63.8 - ANEMIA IN OTHER CHRONIC DISEASES CLASSIFIED ELSEWHERE SNOMED Code(s): 342844568 (2) ARF (acute renal failure) Current Visit: Yes Status: Acute Code(s): N17.9 - ACUTE KIDNEY FAILURE, UNSPECIFIED SNOMED Code(s): 25622904 (3) Diabetes mellitus Current Visit: No Status: Acute Code(s): E11.9 - TYPE 2 DIABETES MELLITUS WITHOUT COMPLICATIONS SNOMED Code(s): 10627483 (4) Diastolic CHF Current Visit: Yes Status: Acute Code(s): I50.30 - UNSPECIFIED DIASTOLIC (CONGESTIVE) HEART FAILURE SNOMED Code(s): 285153645 Plan: Continue current management. Watch for any signs of exacerbation of CHF. Continue with aspirin, metoprolol, isosorbide, and also Lipitor. Further recommend addition depend upon the clinical course. If the renal function doesn't improve, patient may need dialysis
[2019-05-09] MEDS: CALCIUM ACETATE 667 MG TAB PO SCH ×2 (12:41→16:19)
[2019-05-09] MEDS: SODIUM BICARBONATE TAB 650 MG TAB PO SCH ×2 (16:19→20:17)
[2019-05-09] MEDS: HEPARIN SODIUM,PORCINE 5,000 UNIT/ML 1 ML VIAL SQ SCH (16:19)
[2019-05-09] MEDS: GABAPENTIN 100 MG CAP PO SCH ×2 (16:19→20:17)
[2019-05-09 16:42] LABS: Glucose,Whole Blood 126 mg/dL (75-99)
[2019-05-09 20:06] LABS: Glucose,Whole Blood 116 mg/dL (75-99)
[2019-05-09] MEDS: FAMOTIDINE 20 MG TAB PO SCH (20:17)
[2019-05-10] MEDS: HEPARIN SODIUM,PORCINE 5,000 UNIT/ML 1 ML VIAL SQ SCH ×4 (00:31→23:27)
[2019-05-10] MEDS: SODIUM CHLORIDE 0.9% 1,000 ML IV SCH ×2 (01:54→16:11)
[2019-05-10] MEDS: INSULIN ASPART (NovoLOG) 100 UNIT/ML VIAL SQ SCH ×4 (06:14→22:09)
[2019-05-10 06:15] LABS: Glucose,Whole Blood 147 mg/dL (75-99)
[2019-05-10] MEDS: LEVOTHYROXINE 125 MCG TAB PO SCH (06:16)
[2019-05-10] MEDS: CALCIUM ACETATE 667 MG TAB PO SCH ×3 (06:17→17:04)
[2019-05-10 07:13] LABS: Calcium 7.5 mg/dL (8.4-10.2); Magnesium 2.2 mg/dL (1.6-2.3); Potassium 5.5 mmol/L (3.5-5.1)
[2019-05-10] MEDS: GABAPENTIN 100 MG CAP PO SCH ×3 (09:11→23:26)
[2019-05-10] MEDS: ATORVASTATIN 80 MG TAB PO SCH (09:11)
[2019-05-10] MEDS: SODIUM BICARBONATE TAB 650 MG TAB PO SCH ×3 (09:11→22:13)
[2019-05-10] MEDS: ASPIRIN 81 MG PO SCH (09:11)
[2019-05-10] MEDS: oxyCODONE-APAP 5-325MG 1 EACH TAB PO PRN ×2 (09:11→17:08)
[2019-05-10] MEDS: ISOSORBIDE MONONITRATE ER 30 MG TAB.ER.24H PO SCH (09:11)
[2019-05-10] MEDS: METOPROLOL TARTRATE 25 MG TAB PO SCH ×2 (09:11→22:13)
[2019-05-10] MEDS: FAMOTIDINE 20 MG TAB PO SCH (09:12)
--- NOTE | 2019-05-10 09:17 | CDI ---
acute on chronic diastolic heart failure Documentation Clarification Form Date: 05/10/2019 09:06:09 AM From: Uma Monsalve RN, CCDS Admit Date: 05/08/2019 07:06:00 PM Patient Name: Tsering Chan I Visit Number: [id number] ATTENTION: The Clinical Documentation Specialists (CDI) and [facility] Coding Staff appreciate your assistance in clarifying documentation. Please respond to the clarification below the line at the bottom and electronically sign. The CDI & [facility] Coding staff will review the response and follow-up if needed. Please note: Queries are made part of the Legal Health Record. If you have any questions, please contact the author of this message via ITS. Dr. Janina Lopez Diastolic CHF is documented in the Cardiology consult and requires further specificity for acuity. History/Risk Factors: CABG, PPM, CKD, thyroidectomy, Atrial Fib, DM, HTN Clinical Indicators: 05/09 H&P: "Cor pulmonale. Patient doesn't have any history of congestive heart failure patient although does have pulmonary hypertension may have right-sided heart failure." VS/Pulse OX: temp 97.2, hr 70, RR 16, B/P 98/42, spo2 99% ra BNP: not done 05/09 Echocardiogram Results:"An echocardiogram done recently showed normal LV function." 05/08 Chest X Ray: Correlate for pulmonary venous hypertension and early interstitial edema. Suspect pulmonary artery hypertension. Marked cardiomegaly. Treatment: Lasix 100mg IVP In your professional opinion, can you please clarify the acuity and type of CHF if known? Diastolic Heart Failure: Acute Chronic Acute on Chronic Unable to Determine Other, please specify (Last Revision: August 2017) MTDD
[2019-05-10 11:53] LABS: Glucose,Whole Blood 131 mg/dL (75-99)
--- NOTE | 2019-05-10 12:59 | P.PN ---
Subjective Progress Note Date: 05/10/19 This is a 73-year-old female with history of ischemic or disease with a previous bypass surgery, permanent pacemaker implantation and history of possible atrial fibrillation. Patient home medication do not show that patient was on anticoagulation. She has history of acute renal failure for which she wasn't temporally on hemodialysis. She does have a fistula in the left arm. She came basically to the hospital with complaints of weakness and fatigue and increasing pedal swelling and low urinary output. She was on Bumex one tablet 3 times daily at home along with metoprolol and also OTILIO inhibitor R's. Her creatinine was 4.2 on admission. She denied any chest pain or shortness of breath. BUN to day is 88 with a creatinine of 5.4, potassium 5.5. Earlier this morning patient had been given some narcotics and was quite sedated, this afternoon she is much more awake. Does state that she is mildly short of breath.pressure 102/50 with a heart rate in the 70s, 96% on room air. Objective - Vital Signs Vital signs: Vital Signs Temp 97.4 F L 05/10/19 08:00 Pulse 78 05/10/19 08:00 Resp 16 05/10/19 08:00 BP 103/50 05/10/19 08:00 Pulse Ox 96 05/10/19 08:00 Intake & Output 05/09/19 05/10/19 05/10/19 18:59 06:59 18:59 Intake Total 240 750 Output Total 500 Balance 240 250 Weight 116.7 kg 118.3 kg Intake: Intake, IV Titration 750 Amount Sodium Chloride 0.9% 1, 750 000 ml @ 75 mls/hr IV . [id number] [facility] Rx#:[id number] Oral 240 Output: Urine 500 Other: # Voids 0 - Exam GENERAL EXAM: Patient is alert and oriented and doesn't appear to be in any acute distress HEENT: Normocephalic. Normal reaction of pupils, equal size, normal range of extraocular motion. No erythema or exudates in the throat. NECK: No masses, no nuchal rigidity. CHEST: No chest wall deformity. LUNGS: Equal air entry with no crackles or wheeze. HEART: S1 and S2 normal with no audible mumurs or gallops. Regular rhythm, femorals equal on both sides.. ABDOMEN: No hepatosplenomegaly, normal bowel sounds, no guarding or rigidity. SKIN: No rashes CENTRAL NERVOUS SYSTEM: No focal deficits. EXTREMITIES: 2-3+ edema - Labs CBC & Chem 7: 05/09/19 09:40 05/10/19 06:27 Labs: Abnormal Lab Results - Last 24 Hours (Table) 05/09/19 05/09/19 05/09/19 Range/Units 16:26 20:05 20:09 Sodium (137-145) mmol/L Potassium (3.5-5.1) mmol/L Carbon Dioxide (22-30) mmol/L BUN (7-17) mg/dL Creatinine (0.52-1.04) mg/dL Glucose (74-99) mg/dL POC Glucose (mg/dL) 126 H 116 H (75-99) mg/dL Calcium (8.4-10.2) mg/dL U Random Total Protein 22 H (<12) mg/dL 05/10/19 05/10/19 05/10/19 Range/Units 06:14 06:27 11:40 Sodium 134 L (137-145) mmol/L Potassium 5.5 H (3.5-5.1) mmol/L Carbon Dioxide 16 L (22-30) mmol/L BUN 88 H (7-17) mg/dL Creatinine 5.41 H (0.52-1.04) mg/dL Glucose 142 H (74-99) mg/dL POC Glucose (mg/dL) 147 H 131 H (75-99) mg/dL Calcium 7.5 L (8.4-10.2) mg/dL U Random Total Protein (<12) mg/dL Assessment and Plan Plan: Impression and Plan 1. Acute kidney injury 2. History of hemodialysis dependent acute kidney injury in 2017 for 6 months. 3. coronary artery disease with prior bypass surgery 4. History of diabetes 5. Anemia off Chronic illness rule out iron deficiency. #6 prior pacemaker #7 chronic persistent atrial fibrillation Plan Creatinine today is up to 5.4, discussed with and nephrology regarding the possible need again for dialysis. At this point in time we will continue current therapy. DNP note has been reviewed, I agree with a documented findings and plan of care. Patient was seen and examined.
--- NOTE | 2019-05-10 14:15 | PN ---
PROGRESS NOTE Patient is seen for followup kidney [facility]. She was admitted with a creatinine of 4.2 which is up to 5.4 now. Patient was on diuretics which are currently on hold. She has a history of dialysis dependent renal failure, but had completely recovered. We have a creatinine of 1.18 on 02/24/2019. Currently patient is maintained on IV fluids. She denies any nausea, vomiting or diarrhea. However, she is complaining of pain and stiffness at her neck area on the back. There is an area that is also tender and swollen. Patient has no fever. She has been voiding. PHYSICAL EXAMINATION: On examination, blood pressure this morning was 103/50, heart rate 78 per minute. Patient is afebrile. Examination of the heart S1, S2. Examination of the lungs, bilateral breath sounds are heard. Abdomen is soft, nontender, obese. Examination of lower extremities shows trace edema bilaterally. There is an area of induration in the posterior part of the neck, it is tender as well. [employer] exam is grossly intact. LABS: Sow sodium 134, potassium 5.5, chloride 99, CO2 is 16, BUN 88, creatinine 5.4, and glucose was 142. ASSESSMENT: 1. Acute kidney injury, nonoliguric, with no improvement in renal function since yesterday. However, patient continues to void. She is not on any nephrotoxic medications and is maintained on IV fluids. She is advised that if her renal function continues to worsen, she may need to restart dialysis. Hopefully, this will be again an acute kidney injury episode and will improve down the road. Check ultrasound to rule out any obstructive uropathy. The UA is quite benign. 2. Metabolic acidosis secondary to renal failure. Continue with oral sodium bicarb. 3. Hyperkalemia associated with progressive renal failure and metabolic acidosis. Maintain patient on low-potassium diet and repeat labs in a.m. PLAN: Continue IV fluids, repeat labs in a.m. Maintain patient on low-potassium diet and hemodialysis if renal function continues to worsen. Check imaging of the induration in the posterior neck area. MMODL / IJN: [id number] /
--- NOTE | 2019-05-10 15:17 | P.PN ---
Subjective 71-year-old the female came in with complaints of bilateral lower limb edema. Edema improved with IV Lasix. Patient is found to have acute renal failure with a creatinine of around 4 patient baseline creatinine appears to be around 0.7 from last November. Patient doesn't have any history of congestive heart failure patient although does have pulmonary hypertension may have right-sided heart failure. Patient in the past had acute blood necrosis from sepsis which appears to be secondary to vertebral fraction. After which patient was a temporally on hemodialysis. Patient has a unused fistula in the right arm. Patient's phosphorus is elevated to 9.5 with calcium of around 7.1. Patient denied any orthopnea proximal nocturnal dyspnea. 05/10/2019 Patient's creatinine went up a bit this is because she received quite a bit of Lasix day before yesterday. Patient is still on surfaces of normal saline does have some edema now I'm expecting her creatinine to start improving. We'll continue with IV normal saline. Patient the gets confused whenever she did see his Percocet this will be completed discontinued and patient will be started on tramadol which can also cause confusion but better than Percocet. His blood pressure remains low. Constitutional: Denied any fatigue denied any fever. Cardio vascular: denied any chest pain, palpitations Gastrointestinal denied any nausea vomiting Pulmonary: Denied any shortness of breath cough Neurologic denied any new focal deficits All inpatient medications were reviewed and appropriate changes in these medications as dictated in the interval history and assessment and plan. Objective - Vital Signs Vital signs: Vital Signs Temp 95.8 F L 05/10/19 12:00 Pulse 94 05/10/19 15:01 Resp 16 05/10/19 15:01 BP 95/62 05/10/19 15:01 Pulse Ox 95 05/10/19 15:01 Intake & Output 05/09/19 05/10/19 05/10/19 18:59 06:59 18:59 Intake Total 240 750 Output Total 500 Balance 240 250 Weight 116.7 kg 118.3 kg Intake: Intake, IV Titration 750 Amount Sodium Chloride 0.9% 1, 750 000 ml @ 75 mls/hr IV . [id number] [facility] Rx#:[id number] Oral 240 Output: Urine 500 Other: # Voids 0 - Exam PHYSICAL EXAMINATION: GENERAL: The patient is alert and oriented x3, not in any acute distress. Well developed, well nourished. HEENT: Pupils are round and equally reacting to light. EOMI. No scleral icterus. No conjunctival pallor. Normocephalic, atraumatic. No pharyngeal erythema. No thyromegaly. CARDIOVASCULAR: S1 and S2 present. No murmurs, rubs, or gallops. PULMONARY: Chest is clear to auscultation, no wheezing or crackles. ABDOMEN: Soft, nontender, nondistended, normoactive bowel sounds. No palpable organomegaly. MUSCULOSKELETAL: No joint swelling or deformity. EXTREMITIES: No cyanosis, clubbing, edema is bit worse today because of IV fluids NEUROLOGICAL: Gross neurological examination did not reveal any focal deficits. SKIN: No rashes. - Labs CBC & Chem 7: 05/09/19 09:40 05/10/19 06:27 Labs: Abnormal Lab Results - Last 24 Hours (Table) 05/09/19 05/09/19 05/09/19 Range/Units 16:26 20:05 20:09 Sodium (137-145) mmol/L Potassium (3.5-5.1) mmol/L Carbon Dioxide (22-30) mmol/L BUN (7-17) mg/dL Creatinine (0.52-1.04) mg/dL Glucose (74-99) mg/dL POC Glucose (mg/dL) 126 H 116 H (75-99) mg/dL Calcium (8.4-10.2) mg/dL U Random Total Protein 22 H (<12) mg/dL 05/10/19 05/10/19 05/10/19 Range/Units 06:14 06:27 11:40 Sodium 134 L (137-145) mmol/L Potassium 5.5 H (3.5-5.1) mmol/L Carbon Dioxide 16 L (22-30) mmol/L BUN 88 H (7-17) mg/dL Creatinine 5.41 H (0.52-1.04) mg/dL Glucose 142 H (74-99) mg/dL POC Glucose (mg/dL) 147 H 131 H (75-99) mg/dL Calcium 7.5 L (8.4-10.2) mg/dL U Random Total Protein (<12) mg/dL Assessment and Plan Plan: -Bilateral pedal edema which resolved secondary to right-sided heart failure, cor pulmonale. Right now this is not an issue patient has acute renal failure secondary to diuretic therapy and hypotension. -acute renal failure: Secondary to diuretic therapy which will be held and the patient was started on IV fluids at 75 mL per hour, we'll also start her on PhosLo and calcium carbonate repeat basic basic profile tomorrow. Losartan will be held and we'll cut down the dose of gabapentin for pain and we'll cut down the dose of her Percocet as well. His creatinine went up a bit because of the Lasix she received yesterday and therefore -History of hemodialysis dependence in the past -Hypertension: Secondary to diuretic therapy and OTILIO inhibitor which will be held secondary to renal failure -Hyponatremia hypovolemic hyponatremia -Hyperphosphatasemia secondary to renal failure -Elevated TSH, last 24 possible sick euthyroid syndrome patient is on levothyroxine for hepatitis from same dose will be continued for now -DVT in the past -Atrial fibrillation -Type 2 diabetes mellitus with diabetic peripheral neuropathy -Hypothyroidism Due to prophylaxis with subcu heparin
[2019-05-10 16:32] LABS: % Iron Saturation 5.83 (12.00-45.00)
[2019-05-10 16:42] LABS: Glucose,Whole Blood 113 mg/dL (75-99)
[2019-05-10 20:52] LABS: Glucose,Whole Blood 114 mg/dL (75-99)
[2019-05-11] MEDS ORDERED: NALOXONE 0.4 MG/ML 1 ML VIAL ONE (02:49)
[2019-05-11] MEDS: SODIUM CHLORIDE 0.9% 1,000 ML IV SCH ×2 (03:21→11:42)
[2019-05-11 06:12] LABS: Glucose,Whole Blood 128 mg/dL (75-99)
[2019-05-11] MEDS: INSULIN ASPART (NovoLOG) 100 UNIT/ML VIAL SQ SCH ×4 (06:13→21:11)
[2019-05-11] MEDS: LEVOTHYROXINE 125 MCG TAB PO SCH (06:18)
[2019-05-11] MEDS: CALCIUM ACETATE 667 MG TAB PO SCH ×3 (06:18→17:33)
[2019-05-11 07:16] LABS: Calcium 7.3 mg/dL (8.4-10.2); Potassium 5.7 mmol/L (3.5-5.1)
[2019-05-11] MEDS: ISOSORBIDE MONONITRATE ER 30 MG TAB.ER.24H PO SCH (08:53)
[2019-05-11] MEDS: HEPARIN SODIUM,PORCINE 5,000 UNIT/ML 1 ML VIAL SQ SCH ×2 (08:53→17:35)
[2019-05-11] MEDS: ATORVASTATIN 80 MG TAB PO SCH (08:54)
[2019-05-11] MEDS: METOPROLOL TARTRATE 12.5 MG TAB PO SCH ×2 (08:54→21:16)
[2019-05-11] MEDS: ASPIRIN 81 MG PO SCH (08:54)
[2019-05-11] MEDS: FAMOTIDINE 20 MG TAB PO SCH (08:54)
[2019-05-11] MEDS: SODIUM BICARBONATE TAB 650 MG TAB PO SCH ×3 (08:54→21:16)
[2019-05-11] MEDS ORDERED: SODIUM POLYSTYRENE SULFONATE 15 GM/60 ML BOTTLE PO STA (09:48)
--- NOTE | 2019-05-11 11:00 | P.PN ---
Subjective 71-year-old the female came in with complaints of bilateral lower limb edema. Edema improved with IV Lasix. Patient is found to have acute renal failure with a creatinine of around 4 patient baseline creatinine appears to be around 0.7 from last November. Patient doesn't have any history of congestive heart failure patient although does have pulmonary hypertension may have right-sided heart failure. Patient in the past had acute blood necrosis from sepsis which appears to be secondary to vertebral fraction. After which patient was a temporally on hemodialysis. Patient has a unused fistula in the right arm. Patient's phosphorus is elevated to 9.5 with calcium of around 7.1. Patient denied any orthopnea proximal nocturnal dyspnea. 05/10/2019 Patient's creatinine went up a bit this is because she received quite a bit of Lasix day before yesterday. Patient is still on surfaces of normal saline does have some edema now I'm expecting her creatinine to start improving. We'll continue with IV normal saline. Patient the gets confused whenever she did see his Percocet this will be completed discontinued and patient will be started on tramadol which can also cause confusion but better than Percocet. His blood pressure remains low. 05/11/2019 Patient's serum creatinine did not improve much and patient's a serum potassium is 5.7, patient will be given capsulate will continue with IV fluids today if she had a creatinine doesn't improve may end up needing dialysis as of now patient doesn't need any emergent dialysis plan is to continue with IV fluids and monitor the creatinine. She does have increased swelling in both legs from IV fluids Constitutional: Denied any fatigue denied any fever. Cardio vascular: denied any chest pain, palpitations Gastrointestinal denied any nausea vomiting Pulmonary: Denied any shortness of breath cough Neurologic denied any new focal deficits All inpatient medications were reviewed and appropriate changes in these medications as dictated in the interval history and assessment and plan. Objective - Vital Signs Vital signs: Vital Signs Temp 97.1 F L 05/11/19 08:45 Pulse 67 05/11/19 08:45 Resp 14 05/11/19 08:45 BP 110/45 05/11/19 08:45 Pulse Ox 97 05/11/19 08:45 Intake & Output 05/10/19 05/11/19 05/11/19 18:59 06:59 18:59 Intake Total 120 150 Output Total 200 Balance 120 -50 Weight 117.3 kg Intake: Intake, IV Titration 150 Amount Sodium Chloride 0.9% 1, 150 000 ml @ 75 mls/hr IV . [id number] [facility] Rx#:[id number] Oral 120 Output: Urine 200 Other: Voiding Method Indwelling Catheter Indwelling Catheter - Exam PHYSICAL EXAMINATION: GENERAL: The patient is alert and oriented x3, not in any acute distress. Well developed, well nourished. HEENT: Pupils are round and equally reacting to light. EOMI. No scleral icterus. No conjunctival pallor. Normocephalic, atraumatic. No pharyngeal erythema. No thyromegaly. CARDIOVASCULAR: S1 and S2 present. No murmurs, rubs, or gallops. PULMONARY: Chest is clear to auscultation, no wheezing or crackles. ABDOMEN: Soft, nontender, nondistended, normoactive bowel sounds. No palpable organomegaly. MUSCULOSKELETAL: No joint swelling or deformity. EXTREMITIES: No cyanosis, clubbing, edema is bit worse today because of IV fluids NEUROLOGICAL: Gross neurological examination did not reveal any focal deficits. SKIN: No rashes. - Labs CBC & Chem 7: 05/09/19 09:40 05/11/19 05:44 Labs: Abnormal Lab Results - Last 24 Hours (Table) 05/09/19 05/10/19 05/10/19 Range/Units 09:40 11:40 16:40 Sodium (137-145) mmol/L Potassium (3.5-5.1) mmol/L Carbon Dioxide (22-30) mmol/L BUN (7-17) mg/dL Creatinine (0.52-1.04) mg/dL Glucose (74-99) mg/dL POC Glucose (mg/dL) 131 H 113 H (75-99) mg/dL Calcium (8.4-10.2) mg/dL Iron 20 L (50-170) ug/dL % Saturation 5.83 L (12.00-45.00) 05/10/19 05/11/19 05/11/19 Range/Units 20:51 05:44 06:09 Sodium 134 L (137-145) mmol/L Potassium 5.7 H (3.5-5.1) mmol/L Carbon Dioxide 15 L (22-30) mmol/L BUN 94 H (7-17) mg/dL Creatinine 5.61 H (0.52-1.04) mg/dL Glucose 107 H (74-99) mg/dL POC Glucose (mg/dL) 114 H 128 H (75-99) mg/dL Calcium 7.3 L (8.4-10.2) mg/dL Iron (50-170) ug/dL % Saturation (12.00-45.00) Assessment and Plan Plan: -Bilateral pedal edema which resolved secondary to right-sided heart failure, cor pulmonale. Right now this is not an issue patient has acute renal failure secondary to diuretic therapy and hypotension. -acute renal failure: Secondary to diuretic therapy which will be held and the patient was started on IV fluids at 75 mL per hour, we'll also start her on PhosLo and calcium carbonate repeat basic basic profile tomorrow. Losartan will be held and we'll cut down the dose of gabapentin for pain and we'll cut down the dose of her Percocet as well. No significant improvement in kidney function -History of hemodialysis dependence in the past -Hypertension: Secondary to diuretic therapy and OTILIO inhibitor which will be held secondary to renal failure -Hyponatremia hypovolemic hyponatremia -Hyperphosphatasemia secondary to renal failure -Elevated TSH, last 24 possible sick euthyroid syndrome patient is on levothyroxine for hepatitis from same dose will be continued for now -DVT in the past -Atrial fibrillation -Type 2 diabetes mellitus with diabetic peripheral neuropathy -Hypothyroidism Due to prophylaxis with subcu heparin
[2019-05-11 12:10] LABS: Glucose,Whole Blood 101 mg/dL (75-99)
--- NOTE | 2019-05-11 14:40 | P.PN ---
Subjective Progress Note Date: 05/11/19 Pt is seen for f/u for EVELYN. She is maintained on IVF. Renal function is not improving.U/A has been benign. No obstruction on USS. Pt was sleeping this morning. She did wake up for a short period of time but went back to sleep. Not eating much per nursing staff. Pt has an AVF. We will proceed with [facility] today. Pt was informed yesterday that she may need to start HD if renal function does not improve. She was agreeable. Objective - Vital Signs Vital signs: Vital Signs Temp 97.3 F L 05/11/19 11:35 Pulse 71 05/11/19 11:35 Resp 16 05/11/19 11:35 BP 124/92 05/11/19 11:35 Pulse Ox 99 05/11/19 11:35 Intake & Output 05/10/19 05/11/19 05/11/19 18:59 06:59 18:59 Intake Total 120 150 600 Output Total 200 Balance 120 -50 600 Weight 117.3 kg Intake: Intake, IV Titration 150 600 Amount Sodium Chloride 0.9% 1, 150 600 000 ml @ 75 mls/hr IV . [id number] [facility] Rx#:[id number] Oral 120 Output: Urine 200 Other: Voiding Method Indwelling Catheter Indwelling Catheter # Bowel Movements 0 - Exam sleeping this am. Arousable but goes back to sleep. - Constitutional General appearance: Present: average body habitus, no acute distress - EENT Eyes: Present: PERRLA, normal appearance - Respiratory Respiratory: bilateral: CTA (decreased b sounds at bases.) - Cardiovascular Rhythm: regular Heart sounds: normal: S1, S2 - Gastrointestinal General gastrointestinal: Present: distended, soft - Neurologic Neurologic Comment(s): sleepy, Otherwise moving all 4 extremities. Not confused. No tremors/asterixus - Labs CBC & Chem 7: 05/09/19 09:40 05/11/19 05:44 Labs: Abnormal Lab Results - Last 24 Hours (Table) 05/09/19 05/10/19 05/10/19 Range/Units 09:40 16:40 20:51 Sodium (137-145) mmol/L Potassium (3.5-5.1) mmol/L Carbon Dioxide (22-30) mmol/L BUN (7-17) mg/dL Creatinine (0.52-1.04) mg/dL Glucose (74-99) mg/dL POC Glucose (mg/dL) 113 H 114 H (75-99) mg/dL Calcium (8.4-10.2) mg/dL Iron 20 L (50-170) ug/dL % Saturation 5.83 L (12.00-45.00) 05/11/19 05/11/19 05/11/19 Range/Units 05:44 06:09 11:59 Sodium 134 L (137-145) mmol/L Potassium 5.7 H (3.5-5.1) mmol/L Carbon Dioxide 15 L (22-30) mmol/L BUN 94 H (7-17) mg/dL Creatinine 5.61 H (0.52-1.04) mg/dL Glucose 107 H (74-99) mg/dL POC Glucose (mg/dL) 128 H 101 H (75-99) mg/dL Calcium 7.3 L (8.4-10.2) mg/dL Iron (50-170) ug/dL % Saturation (12.00-45.00) Assessment and Plan Assessment: 1. EVELYN, no oliguric, on IVF. Not improving No obst on USS. U/A is benign. Proceed with HD today as pt is sleepy and not eating. 2. Metabolic acidosis from renal failure. 3. Lethargy from renal failure 4. H/o dialysis dependent renal failure, recovered with cr around 1.1-1.3 as op. 5. CKD, stage 3 sec to nephrosclerosis 6. Hyperphospahtemia sec to renal failure, on binders. PLAN HD today. Try to Use old AVF. Pt will need to be set up as op as well and we will continue to monitor for recovery of renal function. Consider kidney bx.
[2019-05-11 17:20] LABS: Glucose,Whole Blood 91 mg/dL (75-99)
--- NOTE | 2019-05-11 18:49 | P.PN ---
Subjective Progress Note Date: 05/11/19 This is a 73-year-old female who was admitted to the hospital with increasing shortness of breath, edema and evidence of renal failure. Her creatinine has been going up and potassium is going up. Seen by nephrology and considered for hemodialysis. She is not responding to diuretic therapy. Patient is lethargic and sleepy. No complaints of chest pain. Doesn't appear to be in acute respiratory distress. However, she will benefit from hemodialysis Objective - Vital Signs Vital signs: Vital Signs Temp 97.2 F L 05/11/19 15:06 Pulse 79 05/11/19 15:06 Resp 16 05/11/19 15:06 BP 99/48 05/11/19 15:06 Pulse Ox 97 05/11/19 15:06 Intake & Output 05/10/19 05/11/19 05/11/19 18:59 06:59 18:59 Intake Total 216 608 1187 Output Total 200 Balance 120 -50 1425 Weight 117.3 kg Intake: Intake, IV Titration 150 1125 Amount Sodium Chloride 0.9% 1, 150 1125 000 ml @ 75 mls/hr IV . [id number] [facility] Rx#:[id number] Oral 120 300 Output: Urine 200 Other: Voiding Method Indwelling Catheter Indwelling Catheter # Bowel Movements 0 - Exam GENERAL EXAM: Patient is sleepy and barely arousable HEENT: Normocephalic. Normal reaction of pupils, equal size, normal range of extraocular motion. No erythema or exudates in the throat. NECK: No masses, no nuchal rigidity. CHEST: No chest wall deformity. LUNGS: Diminished breath sounds HEART: S1 and S2 normal with no audible mumurs or gallops. Regular rhythm, femor als equal on both sides.. ABDOMEN: No hepatosplenomegaly, normal bowel sounds, no guarding or rigidity. SKIN: No rashes CENTRAL NERVOUS SYSTEM: No focal deficits. EXTREMITIES: No cyanosis, clubbing or edema. - Labs CBC & Chem 7: 05/09/19 09:40 05/11/19 05:44 Labs: Abnormal Lab Results - Last 24 Hours (Table) 05/10/19 05/11/19 05/11/19 Range/Units 20:51 05:44 06:09 Sodium 134 L (137-145) mmol/L Potassium 5.7 H (3.5-5.1) mmol/L Carbon Dioxide 15 L (22-30) mmol/L BUN 94 H (7-17) mg/dL Creatinine 5.61 H (0.52-1.04) mg/dL Glucose 107 H (74-99) mg/dL POC Glucose (mg/dL) 114 H 128 H (75-99) mg/dL Calcium 7.3 L (8.4-10.2) mg/dL 05/11/19 Range/Units 11:59 Sodium (137-145) mmol/L Potassium (3.5-5.1) mmol/L Carbon Dioxide (22-30) mmol/L BUN (7-17) mg/dL Creatinine (0.52-1.04) mg/dL Glucose (74-99) mg/dL POC Glucose (mg/dL) 101 H (75-99) mg/dL Calcium (8.4-10.2) mg/dL Assessment and Plan (1) Anemia of chronic disease Current Visit: Yes Status: Acute Code(s): D63.8 - ANEMIA IN OTHER CHRONIC DISEASES CLASSIFIED ELSEWHERE SNOMED Code(s): 031432321 (2) ARF (acute renal failure) Current Visit: Yes Status: Acute Code(s): N17.9 - ACUTE KIDNEY FAILURE, UNSPECIFIED SNOMED Code(s): 71064620 (3) Diabetes mellitus Current Visit: No Status: Acute Code(s): E11.9 - TYPE 2 DIABETES MELLITUS WITHOUT COMPLICATIONS SNOMED Code(s): 68800279 (4) Diastolic CHF Current Visit: Yes Status: Acute Code(s): I50.30 - UNSPECIFIED DIASTOLIC (CONGESTIVE) HEART FAILURE SNOMED Code(s): 858357937 Plan: Patient is being was sleepy and lethargic. Her BUN/creatinine are going up seen by nephrology and planning for hemodialysis
[2019-05-11 20:29] LABS: Glucose,Whole Blood 80 mg/dL (75-99)
[2019-05-11] MEDS ORDERED: SODIUM CHLORIDE 0.9% 500 ML 500 ML IV ONE (23:36)
[2019-05-11] MEDS ORDERED: MIDODRINE 5 MG TAB PO STA (23:37)
[2019-05-12] MEDS: HEPARIN SODIUM,PORCINE 5,000 UNIT/ML 1 ML VIAL SQ SCH ×4 (00:27→22:53)
[2019-05-12 00:30] LABS: Hepatitis B Surface AB- Quant 76.5 mIU/mL; Hepatitis B Surface Antibody Reactive (Non-Reactive); Hepatitis B Surface Antigen Non-Reactive (Non-Reactive)
[2019-05-12] MEDS: SODIUM CHLORIDE 0.9% 1,000 ML IV SCH ×2 (05:57→17:12)
[2019-05-12] MEDS: MIDODRINE 5 MG TAB PO SCH ×3 (05:59→17:12)
[2019-05-12] MEDS: LEVOTHYROXINE 125 MCG TAB PO SCH (05:59)
[2019-05-12] MEDS: INSULIN ASPART (NovoLOG) 100 UNIT/ML VIAL SQ SCH ×4 (06:00→21:12)
[2019-05-12 06:02] LABS: Glucose,Whole Blood 77 mg/dL (75-99)
[2019-05-12 06:33] LABS: Anisocytosis Slight; HCT 30.9 % (34.0-46.0); HGB 9.5 gm/dL (11.4-16.0); Hypochromasia Moderate; MCH 28.5 pg (25.0-35.0); MCHC 30.7 g/dL (31.0-37.0); MCV 92.7 fL (80.0-100.0); Mean Platelet Volume 9.1; Platelet Count 151 k/uL (150-450); RBC 3.34 m/uL (3.80-5.40); WBC 4.1 k/uL (3.8-10.6)
[2019-05-12 06:57] LABS: Calcium 7.3 mg/dL (8.4-10.2); Potassium 4.5 mmol/L (3.5-5.1)
[2019-05-12] MEDS: ISOSORBIDE MONONITRATE ER 30 MG TAB.ER.24H PO SCH (08:38)
[2019-05-12] MEDS: ATORVASTATIN 80 MG TAB PO SCH (08:38)
[2019-05-12] MEDS: METOPROLOL TARTRATE 12.5 MG TAB PO SCH ×2 (08:38→21:11)
[2019-05-12] MEDS: SODIUM BICARBONATE TAB 650 MG TAB PO SCH ×3 (08:38→21:11)
[2019-05-12] MEDS: FAMOTIDINE 20 MG TAB PO SCH (08:38)
[2019-05-12] MEDS: ASPIRIN 81 MG PO SCH (08:38)
[2019-05-12] MEDS: CALCIUM ACETATE 667 MG TAB PO SCH ×3 (08:45→17:12)
--- NOTE | 2019-05-12 11:47 | P.PN ---
Subjective 71-year-old the female came in with complaints of bilateral lower limb edema. Edema improved with IV Lasix. Patient is found to have acute renal failure with a creatinine of around 4 patient baseline creatinine appears to be around 0.7 from last November. Patient doesn't have any history of congestive heart failure patient although does have pulmonary hypertension may have right-sided heart failure. Patient in the past had acute blood necrosis from sepsis which appears to be secondary to vertebral fraction. After which patient was a temporally on hemodialysis. Patient has a unused fistula in the right arm. Patient's phosphorus is elevated to 9.5 with calcium of around 7.1. Patient denied any orthopnea proximal nocturnal dyspnea. 05/10/2019 Patient's creatinine went up a bit this is because she received quite a bit of Lasix day before yesterday. Patient is still on surfaces of normal saline does have some edema now I'm expecting her creatinine to start improving. We'll continue with IV normal saline. Patient the gets confused whenever she did see his Percocet this will be completed discontinued and patient will be started on tramadol which can also cause confusion but better than Percocet. His blood pressure remains low. 05/11/2019 Patient's serum creatinine did not improve much and patient's a serum potassium is 5.7, patient will be given capsulate will continue with IV fluids today if she had a creatinine doesn't improve may end up needing dialysis as of now patient doesn't need any emergent dialysis plan is to continue with IV fluids and monitor the creatinine. She does have increased swelling in both legs from IV fluids 05/12/2019 Since patient was lethargic and confused yesterday patient underwent hemodi alysis and the patient's creatinine improved subsequently but patient remains alert oriented 1 bit confused. Patient is not significant in volume overloaded no reason for emergent dialysis patient will undergo hemodialysis most probably tomorrow nephrology evaluated the patient. Constitutional: Denied any fatigue denied any fever. Cardio vascular: denied any chest pain, palpitations Gastrointestinal denied any nausea vomiting Pulmonary: Denied any shortness of breath cough Neurologic denied any new focal deficits All inpatient medications were reviewed and appropriate changes in these medi cations as dictated in the interval history and assessment and plan. Objective - Vital Signs Vital signs: Vital Signs Temp 99.0 F 05/12/19 08:00 Pulse 96 05/12/19 08:00 Resp 18 05/12/19 08:00 BP 123/63 05/12/19 08:00 Pulse Ox 96 05/12/19 08:00 Intake & Output 05/11/19 05/12/19 05/12/19 18:59 06:59 18:59 Intake Total 1525 900 400 Output Total 400 1175 Balance 1125 -275 400 Weight 119 kg Intake: Intake, IV Titration 1125 300 Amount Sodium Chloride 0.9% 1, 1125 300 000 ml @ 75 mls/hr IV . [id number] [facility] Rx#:[id number] Oral 400 400 Hemodialysis 600 Output: Urine 400 175 Hemodialysis 1000 Other: Voiding Method Indwelling Catheter Indwelling Catheter Indwelling Catheter # Bowel Movements 0 - Exam PHYSICAL EXAMINATION: GENERAL: The patient is alert and oriented x1, not in any acute distress. Well developed, well nourished. HEENT: Pupils are round and equally reacting to light. EOMI. No scleral icterus. No conjunctival pallor. Normocephalic, atraumatic. No pharyngeal erythema. No thyromegaly. CARDIOVASCULAR: S1 and S2 present. No murmurs, rubs, or gallops. PULMONARY: Chest is clear to auscultation, no wheezing or crackles. Patient has a lipoma in the back of the neck. ABDOMEN: Soft, nontender, nondistended, normoactive bowel sounds. No palpable organomegaly. MUSCULOSKELETAL: No joint swelling or deformity. EXTREMITIES: No cyanosis, clubbing, edema is bit worse today because of IV fluids NEUROLOGICAL: She is definitely confused. SKIN: No rashes. - Labs CBC & Chem 7: 05/12/19 05:51 05/12/19 05:51 Labs: Abnormal Lab Results - Last 24 Hours (Table) 05/10/19 05/11/19 05/12/19 Range/Units 06:27 11:59 05:51 RBC 3.34 L (3.80-5.40) m/uL Hgb 9.5 L (11.4-16.0) gm/dL Hct 30.9 L (34.0-46.0) % MCHC 30.7 L (31.0-37.0) g/dL RDW 16.0 H (11.5-15.5) % Carbon Dioxide (22-30) mmol/L BUN (7-17) mg/dL Creatinine (0.52-1.04) mg/dL POC Glucose (mg/dL) 101 H (75-99) mg/dL Calcium (8.4-10.2) mg/dL Hep Bs Antibody Reactive H (Non-Reactive) 05/12/19 Range/Units 05:51 RBC (3.80-5.40) m/uL Hgb (11.4-16.0) gm/dL Hct (34.0-46.0) % MCHC (31.0-37.0) g/dL RDW (11.5-15.5) % Carbon Dioxide 17 L (22-30) mmol/L BUN 68 H (7-17) mg/dL Creatinine 3.80 H (0.52-1.04) mg/dL POC Glucose (mg/dL) (75-99) mg/dL Calcium 7.3 L (8.4-10.2) mg/dL Hep Bs Antibody (Non-Reactive) Assessment and Plan Plan: -acute renal failure: Secondary to diuretic therapy which will be held and the patient was started on IV fluids at 75 mL per hour, she is on PhosLo and calcium carbonate repeat basic basic profile tomorrow. Patient did undergo hemodialysis as today and will undergo dialysis tomorrow patient is confused because of metab olic encephalopathy from a renal failure. - right-sided heart failure, cor pulmonale. Right now this is not an issue patient has acute renal failure secondary to diuretic therapy and hypotension. -History of hemodialysis dependence in the past -Hypertension: Secondary to diuretic therapy and OTILIO inhibitor which will be held secondary to renal failure -Hyponatremia hypovolemic hyponatremia, resolved patient on IV fluids patient had received boluses of IV fluids as today because of the low blood pressures. A she was started on midodrine by nephrology. -Hyperphosphatasemia secondary to renal failure -Elevated TSH, last 24 possible sick euthyroid syndrome patient is on levothyroxine for hepatitis from same dose will be continued for now -DVT in the past -Atrial fibrillation -Type 2 diabetes mellitus with diabetic peripheral neuropathy -Hypothyroidism Due to prophylaxis with subcu heparin
[2019-05-12 12:10] LABS: Glucose,Whole Blood 134 mg/dL (75-99)
--- NOTE | 2019-05-12 13:54 | PN ---
PROGRESS NOTE Patient is seen for followup for acute kidney injury. She was dialyzed yesterday as her creatinine continued to worsen and the patient was quite lethargic yesterday. We had about 500 mL of fluid removed. Overnight patient was hypotensive. I gave her a liter bolus. Her blood pressure has improved. However, this morning she seems confused. The patient has an AV fistula which we were able to use for dialysis yesterday. She has an indwelling Simms catheter for urine retention. 24 hour urine output was about 575 mL. The patient was maintained on IV fluids which are now turned down. PHYSICAL EXAMINATION: On examination today, blood pressure was 120/53, heart rate 78 per minute, patient is afebrile. Examination of the heart S1, S2. Examination of the lungs, decreased breath sounds bases. Abdomen is soft, nontender. Examination lower extremities shows trace edema bilaterally. LATHE SPOTTER exam shows patient is moving all 4 extremities. She has had a few tremors. She is confused. LABS: Sodium of 137, potassium 4.5, chloride 104, CO2 is 17, BUN 68, creatinine 3.8, hemoglobin 9.5 g/dL. ASSESSMENT: 1. Acute kidney injury, most likely acute tubular necrosis. UA is quite benign. No evidence of obstructive uropathy. Currently status post first treatment of hemodialysis yesterday. This was done mainly because renal function was not improving and patient was lethargic and quite sleepy with loss of appetite. We will assess her again today and plan for dialysis either today or tomorrow depending on her mentation later on today. If she is more awake later on then we can hold off on the dialysis until tomorrow. Otherwise, I will plan on a short treatment today. 2. Anemia, no active bleeding noted. Add Aranesp. 3. Diastolic congestive heart failure, currently stable. 4. Hypotension, currently maintained on midodrine. No fever. PLAN: Possible dialysis today if mentation does not improve. Otherwise, we will plan for treatment tomorrow. If patient continues to be hypotensive consider evaluation of the soft tissue swelling in the back of the neck. Currently patient has no fever or elevated white count, therefore, I doubt it is a source of any significant infection. MMODL / IJN: [id number] /
--- NOTE | 2019-05-12 14:01 | P.PN ---
Subjective Progress Note Date: 05/12/19 This is a 73-year-old female who was admitted to the hospital with increasing shortness of breath, edema and evidence of renal failure. Her creatinine has been going up and potassium is going up. Seen by nephrology and considered for hemodialysis. She is not responding to diuretic therapy. Patient is lethargic and sleepy. No complaints of chest pain. Doesn't appear to be in acute respiratory distress. However, she will benefit from hemodialysis, 2018: This patient underwent hemodialysis yesterday. Patient was lethargic and confused yesterday. Seemed to be much more alert though still seemed to be confused. Doesn't appear to be in acute distress. There is improvement in creatinine. Heart is regular. Lungs appeared to be essentially clear. Continue current management. Patient is starting have some urinary output. Probably will have dialysis tomorrow Objective - Vital Signs Vital signs: Vital Signs Temp 99.0 F 05/12/19 08:00 Pulse 96 05/12/19 08:00 Resp 18 05/12/19 08:00 BP 123/63 05/12/19 08:00 Pulse Ox 96 05/12/19 08:00 Intake & Output 05/11/19 05/12/19 05/12/19 18:59 06:59 18:59 Intake Total 1525 900 400 Output Total 400 1175 Balance 1125 -275 400 Weight 119 kg Intake: Intake, IV Titration 1125 300 Amount Sodium Chloride 0.9% 1, 1125 300 000 ml @ 75 mls/hr IV . [id number] RUTH Rx#:[id number] Oral 400 400 Hemodialysis 600 Output: Urine 400 175 Hemodialysis 1000 Other: Voiding Method Indwelling Catheter Indwelling Catheter Indwelling Catheter # Bowel Movements 0 - Exam GENERAL EXAM: Patient is sleepy and barely arousable HEENT: Normocephalic. Normal reaction of pupils, equal size, normal range of extraocular motion. No erythema or exudates in the throat. NECK: No masses, no nuchal rigidity. CHEST: No chest wall deformity. LUNGS: Diminished breath sounds HEART: S1 and S2 normal with no audible mumurs or gallops. Regular rhythm, femor als equal on both sides.. ABDOMEN: No hepatosplenomegaly, normal bowel sounds, no guarding or rigidity. SKIN: No rashes CENTRAL NERVOUS SYSTEM: No focal deficits. EXTREMITIES: No cyanosis, clubbing or edema. - Labs CBC & Chem 7: 05/12/19 05:51 05/12/19 05:51 Labs: Abnormal Lab Results - Last 24 Hours (Table) 05/10/19 05/12/19 05/12/19 Range/Units 06:27 05:51 05:51 RBC 3.34 L (3.80-5.40) m/uL Hgb 9.5 L (11.4-16.0) gm/dL Hct 30.9 L (34.0-46.0) % MCHC 30.7 L (31.0-37.0) g/dL RDW 16.0 H (11.5-15.5) % Carbon Dioxide 17 L (22-30) mmol/L BUN 68 H (7-17) mg/dL Creatinine 3.80 H (0.52-1.04) mg/dL POC Glucose (mg/dL) (75-99) mg/dL Calcium 7.3 L (8.4-10.2) mg/dL Hep Bs Antibody Reactive H (Non-Reactive) 05/12/19 Range/Units 11:54 RBC (3.80-5.40) m/uL Hgb (11.4-16.0) gm/dL Hct (34.0-46.0) % MCHC (31.0-37.0) g/dL RDW (11.5-15.5) % Carbon Dioxide (22-30) mmol/L BUN (7-17) mg/dL Creatinine (0.52-1.04) mg/dL POC Glucose (mg/dL) 134 H (75-99) mg/dL Calcium (8.4-10.2) mg/dL Hep Bs Antibody (Non-Reactive) Assessment and Plan (1) Anemia of chronic disease Current Visit: Yes Status: Acute Code(s): D63.8 - ANEMIA IN OTHER CHRONIC DISEASES CLASSIFIED ELSEWHERE SNOMED Code(s): 580585886 (2) ARF (acute renal failure) Current Visit: Yes Status: Acute Code(s): N17.9 - ACUTE KIDNEY FAILURE, UNSPECIFIED SNOMED Code(s): 82127280 (3) Diabetes mellitus Current Visit: No Status: Acute Code(s): E11.9 - TYPE 2 DIABETES MELLITUS WI THOUT COMPLICATIONS SNOMED Code(s): 38585496 (4) Diastolic CHF Current Visit: Yes Status: Acute Code(s): I50.30 - UNSPECIFIED DIASTOLIC (CONGESTIVE) HEART FAILURE SNOMED Code(s): 639647977 Plan: Patient is much more alert compared to yesterday. He received dialysis. Continue current management
[2019-05-12 16:07] LABS: Glucose,Whole Blood 141 mg/dL (75-99)
[2019-05-12 17:09] LABS: Glucose,Whole Blood 157 mg/dL (75-99)
--- NOTE | 2019-05-12 18:49 | CT ---
EXAMINATION TYPE: CT brain wo con DATE OF EXAM: 05/12/2019 COMPARISON: 03/04/2016 HISTORY: Altered mental status. CT DLP: 1099.4 mGycm Automated exposure control for dose reduction was used. There is some cerebral cortical atrophy. There is no mass effect nor midline shift. There is no sign of intracranial hemorrhage. Calvarium is intact. There is some osteosclerosis in the mastoid sinuses. IMPRESSION: Mild cerebral atrophy appropriate for age. No acute intracranial abnormality. 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 No change compared to old exam.
[2019-05-12 20:52] LABS: Glucose,Whole Blood 186 mg/dL (75-99)
--- NOTE | 2019-05-12 21:30 | XR ---
EXAMINATION TYPE: XR chest 1V DATE OF EXAM: 05/12/2019 COMPARISON: 05/08/2019 HISTORY: Weakness TECHNIQUE: Single view FINDINGS: Heart is enlarged. There is pulmonary edema. There is a right axillary pacemaker. There are chest leads. IMPRESSION: Congestive heart failure and pulmonary edema appear worse than last exam.
[2019-05-13 06:14] LABS: Glucose,Whole Blood 143 mg/dL (75-99)
[2019-05-13] MEDS: ONDANSETRON 4 MG/2 ML VIAL IVP PRN ×3 (06:34→21:16)
[2019-05-13] MEDS: INSULIN ASPART (NovoLOG) 100 UNIT/ML VIAL SQ SCH ×4 (06:34→20:45)
[2019-05-13] MEDS: SODIUM CHLORIDE 0.9% 1,000 ML IV SCH ×2 (06:36→20:45)
[2019-05-13 07:36] LABS: Calcium 8.6 mg/dL (8.4-10.2); Potassium 4.2 mmol/L (3.5-5.1)
[2019-05-13] MEDS: CALCIUM ACETATE 667 MG TAB PO SCH ×3 (10:03→16:49)
[2019-05-13] MEDS: MIDODRINE 5 MG TAB PO SCH ×3 (10:03→16:49)
[2019-05-13] MEDS: METOPROLOL TARTRATE 12.5 MG TAB PO SCH (10:06)
[2019-05-13] MEDS: SODIUM BICARBONATE TAB 650 MG TAB PO SCH ×3 (10:07→21:16)
[2019-05-13] MEDS: ISOSORBIDE MONONITRATE ER 30 MG TAB.ER.24H PO SCH (10:07)
[2019-05-13] MEDS: ASPIRIN 81 MG PO SCH (10:07)
[2019-05-13] MEDS: ATORVASTATIN 80 MG TAB PO SCH (10:07)
[2019-05-13] MEDS: LEVOTHYROXINE 125 MCG TAB PO SCH (10:08)
[2019-05-13] MEDS: HEPARIN SODIUM,PORCINE 5,000 UNIT/ML 1 ML VIAL SQ SCH ×2 (10:08→16:12)
[2019-05-13] MEDS: FAMOTIDINE 20 MG TAB PO SCH (10:08)
--- NOTE | 2019-05-13 11:09 | PN ---
PROGRESS NOTE Patient is seen for followup for acute kidney injury. She has had 1 treatment of hemodialysis as her serum creatinine continued to increase up to 5.6 with altered mentation. Yesterday patient was confused. She was not dialyzed. However, creatinine has improved from 3.8-2.69 today without dialysis. The patient has had good urine output. Mentation may be slightly better today. However, patient is still quite lethargic. No fever, chills. No nausea, vomiting, diarrhea or abdominal pain. However, patient has not been eating much. PHYSICAL EXAMINATION: On examination, blood pressure is 148/78, heart rate 88 per minute, she is afebrile. Examination of the heart S1, S2. Examination of the lungs, bilateral breath sounds are heard. Abdomen is soft, non-tender. Examination of the lower extremities shows no significant edema. Chronic skin changes are noted. 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 Patient moving all 4 extremities. However, she is weak, but she was able to carry on a conversation with me today. LABS: Show sodium 141, potassium 4.2, chloride 105, CO2 is 21, BUN 65, creatinine 2.69. ASSESSMENT: 1. Acute kidney injury, most likely acute tubular necrosis, currently improving. Patient had 1 treatment of hemodialysis on 05/11/2019. She was not dialyzed yesterday and her creatinine is down from yesterday at 3.8-2.69 today. I will hold off on any further dialysis for now. We will continue with the IV hydration since the patient is not eating. Continue with the Simms catheter as well for now. 2. Mental status changes, etiology unclear. Doubt uremia as renal function continues to improve. However, I feels mentation may also be slightly better today. There is no fever and no major medications to predispose to the encephalopathy. Patient did get Narcan yesterday. 3. Metabolic acidosis secondary to renal failure maintained on oral sodium bicarb, currently improving. 4. Volume depletion on initial admission, now improved. 5. Chronic kidney disease stage III. Baseline creatinine about 1.3-1.1 mg/dL. 6. Hyperkalemia associated with progressive renal failure now improved. PLAN: Hold off on hemodialysis today. Continue with IV fluids, repeat labs in a.m. MMODL / IJN: [id number] /
--- NOTE | 2019-05-13 11:45 | P.PN ---
Subjective 71-year-old the female came in with complaints of bilateral lower limb edema. Edema improved with IV Lasix. Patient is found to have acute renal failure with a creatinine of around 4 patient baseline creatinine appears to be around 0.7 from last November. Patient doesn't have any history of congestive heart failure patient although does have pulmonary hypertension may have right-sided heart failure. Patient in the past had acute blood necrosis from sepsis which appears to be secondary to vertebral fraction. After which patient was a temporally on hemodialysis. Patient has a unused fistula in the right arm. Patient's phosphorus is elevated to 9.5 with calcium of around 7.1. Patient denied any orthopnea proximal nocturnal dyspnea. 05/10/2019 Patient's creatinine went up a bit this is because she received quite a bit of Lasix day before yesterday. Patient is still on surfaces of normal saline does have some edema now I'm expecting her creatinine to start improving. We'll continue with IV normal saline. Patient the gets confused whenever she did see his Percocet this will be completed discontinued and patient will be started on tramadol which can also cause confusion but better than Percocet. His blood pressure remains low. 05/11/2019 Patient's serum creatinine did not improve much and patient's a serum potassium is 5.7, patient will be given capsulate will continue with IV fluids today if she had a creatinine doesn't improve may end up needing dialysis as of now patient doesn't need any emergent dialysis plan is to continue with IV fluids and monitor the creatinine. She does have increased swelling in both legs from IV fluids 05/12/2019 Since patient was lethargic and confused yesterday patient underwent hemodi alysis and the patient's creatinine improved subsequently but patient remains alert oriented 1 bit confused. Patient is not significant in volume overloaded no reason for emergent dialysis patient will undergo hemodialysis most probably tomorrow nephrology evaluated the patient. 05/13/2019 Patient is less lethargic little bit more awake patient is alert oriented 2 compared to alert oriented 1 yesterday. Patient didn't receive any hemodialysis in spite of which had kidney function started improving patient will remain on surfaces of normal saline in the CODING AUDITOR to monitor kidney function Constitutional: Denied any fatigue denied any fever. Cardio vascular: denied any chest pain, palpitations Gastrointestinal denied any nausea vomiting Pulmonary: Denied any shortness of breath cough Neurologic denied any new focal deficits All inpatient medications were reviewed and appropriate changes in these medications as dictated in the interval history and assessment and plan. Objective - Vital Signs Vital signs: Vital Signs Temp 99.1 F 05/13/19 04:00 Pulse 88 05/13/19 04:00 Resp 16 05/13/19 04:00 BP 148/78 05/13/19 04:00 Pulse Ox 99 05/13/19 04:00 Intake & Output 05/12/19 05/13/19 05/13/19 18:59 06:59 18:59 Intake Total 618 Output Total 550 900 Balance 68 -900 Weight 120.5 kg Intake: Oral 618 Output: Urine 550 900 Other: Voiding Method Indwelling Catheter Indwelling Catheter - Exam PHYSICAL EXAMINATION: GENERAL: The patient is alert and oriented x2, not in any acute distress. Well developed, well nourished. HEENT: Pupils are round and equally reacting to light. EOMI. No scleral icterus. No conjunctival pallor. Normocephalic, atraumatic. No pharyngeal erythema. No thyromegaly. CARDIOVASCULAR: S1 and S2 present. No murmurs, rubs, or gallops. PULMONARY: Chest is clear to auscultation, no wheezing or crackles. Patient has a lipoma in the back of the neck. ABDOMEN: Soft, nontender, nondistended, normoactive bowel sounds. No palpable organomegaly. MUSCULOSKELETAL: No joint swelling or deformity. EXTREMITIES: No cyanosis, clubbing, edema is bit worse today because of IV fluids NEUROLOGICAL: She is less confused compared to yesterday. SKIN: No rashes. - Labs CBC & Chem 7: 05/12/19 05:51 05/13/19 06:53 Labs: Abnormal Lab Results - Last 24 Hours (Table) 05/12/19 05/12/19 05/12/19 Range/Units 11:54 15:57 16:55 Carbon Dioxide (22-30) mmol/L BUN (7-17) mg/dL Creatinine (0.52-1.04) mg/dL Glucose (74-99) mg/dL POC Glucose (mg/dL) 134 H 141 H 157 H (75-99) mg/dL 05/12/19 05/13/19 05/13/19 Range/Units 20:51 06:12 06:53 Carbon Dioxide 21 L (22-30) mmol/L BUN 65 H (7-17) mg/dL Creatinine 2.69 H (0.52-1.04) mg/dL Glucose 155 H (74-99) mg/dL POC Glucose (mg/dL) 186 H 143 H (75-99) mg/dL Assessment and Plan Plan: -acute renal failure: Secondary to diuretic therapy which will be held and the patient was started on IV fluids at 75 mL per hour, she is on PhosLo and calcium carbonate repeat basic basic profile tomorrow. Patient's creatinine is improving without paralysis patient received 1 session of him analysis on Friday. Patient had a CAT scan of the head which did not show any significant abnormality acutely. - right-sided heart failure, cor pulmonale. Right now this is not an issue patient has acute renal failure secondary to diuretic therapy and hypotension. -History of hemodialysis dependence in the past -Hypertension: Secondary to diuretic therapy and OTILIO inhibitor which will be held secondary to renal failure -Hyponatremia hypovolemic hyponatremia, resolved patient on IV fluids -Hyperphosphatasemia secondary to renal failure -Elevated TSH, last 24 possible sick euthyroid syndrome patient is on levothyroxine for hepatitis from same dose will be continued for now -DVT in the past -Atrial fibrillation -Type 2 diabetes mellitus with diabetic peripheral neuropathy -Hypothyroidism Due to prophylaxis with subcu heparin
--- NOTE | 2019-05-13 11:49 | ECHOF ---
Referral Reason:Chest pain and cardiomyopathy MEASUREMENTS -------- HEIGHT: 175.3 cm WEIGHT: 120.2 kg BP: 148/78 RVIDd: 3.5 cm (< 3.3) IVSd: 1.4 cm (0.6 - 1.1) LVIDd: 4.8 cm (3.9 - 5.3) LVPWd: 1.6 cm (0.6 - 1.1) IVSs: 1.6 cm LVIDs: 3.0 cm LVPWs: 2.0 cm LAESV Index (A-L): 55.23 ml/m IVSd: 1.4 cm (0.6 - 1.1) LVIDd: 4.6 cm (3.9 - 5.3) LVPWd: 1.7 cm (0.6 - 1.1) IVSs: 1.9 cm LVIDs: 3.5 cm LVPWs: 1.7 cm EDV(Teich): 98 ml ESV(Teich): 51 ml EF(Teich): 47 % %FS: 24 % SV(Teich): 46 ml Ao Diam: 2.4 cm (2.0 - 3.7) AV Cusp: 1.8 cm (1.5 - 2.6) LA Diam: 5.1 cm (2.7 - 3.8) MV E Francesco: 1.31 m/s MV DecT: 95 ms MV A Francesco: 0.00 m/s MV E/A Ratio: 324.15 RAP: 5.00 mmHg RVSP: 65.34 mmHg FINDINGS -------- Atrial fibrillation. This was a technically difficult study with suboptimal apical views. The left ventricular size is normal. There is moderate concentric left ventricular hypertrophy. O verall left ventricular systolic function is normal with, an EF between 55 - 60 %. Left ventricular fillimg pressure cannot be estimated due to Atrial fibrillation. The right ventricle is mildly enlarged. LA is severely dilated >40 ml/m2 The right atrium was not well visualized. 5.0mg of Lumason was utilized for enhancement of images There is mild aortic valve sclerosis. There is no evidence of aortic regurgitation. Mild mitral annular calcification present. Mild mitral regurgitation is present. Moderate tricuspid regurgitation present. There is moderate to severe pulmonary hypertension. The right ventricular systolic pressure, as measured by Doppler, is 65.34mmHg. Moderate pulmonic regurgitation. The aortic root size is normal. IVC Not well visulized. There is no pericardial effusion. CONCLUSIONS -------- 1. Atrial fibrillation. 2. This was a technically difficult study with suboptimal apical views. 3. The left ventricular size is normal. 4. There is moderate concentric left ventricular hypertrophy. 5. Overall left ventricular systolic function is normal with, an EF between 55 - 60 %. 6. Left ventricular fillimg pressure cannot be estimated due to Atrial fibrillation. 7. The right ventricle is mildly enlarged. 8. LA is severely dilated >40 ml/m2 9. The right atrium was not well visualized. 10. 5.0mg of Lumason was utilized for enhancement of images 11. There is mild aortic valve sclerosis. 12. There is no evidence of aortic regurgitation. 13. Mild mitral regurgitation is present. 14. Moderate tricuspid regurgitation present. 15. There is moderate to severe pulmonary hypertension. 16. Moderate pulmonic regurgitation. 17. There is no pericardial effusion. BIOFUELS PLANT OPERATIONS ENGINEER: Amber Emmanuel RDCS
[2019-05-13 11:58] LABS: Glucose,Whole Blood 167 mg/dL (75-99)
[2019-05-13] MEDS: METOPROLOL TARTRATE 25 MG TAB PO SCH ×2 (13:30→20:45)
[2019-05-13 16:08] LABS: Glucose,Whole Blood 155 mg/dL (75-99)
[2019-05-13 16:54] LABS: Glucose,Whole Blood 163 mg/dL (75-99)
[2019-05-13 20:09] LABS: Glucose,Whole Blood 175 mg/dL (75-99)
[2019-05-14] MEDS: HEPARIN SODIUM,PORCINE 5,000 UNIT/ML 1 ML VIAL SQ SCH ×3 (00:15→17:07)
[2019-05-14] MEDS: ONDANSETRON 4 MG/2 ML VIAL IVP PRN ×2 (04:22→10:15)
[2019-05-14 07:03] LABS: Glucose,Whole Blood 160 mg/dL (75-99)
[2019-05-14] MEDS: FAMOTIDINE 20 MG TAB PO SCH (07:11)
[2019-05-14] MEDS: SODIUM BICARBONATE TAB 650 MG TAB PO SCH ×3 (07:11→20:36)
[2019-05-14] MEDS: LEVOTHYROXINE 125 MCG TAB PO SCH (07:12)
[2019-05-14] MEDS: CALCIUM ACETATE 667 MG TAB PO SCH ×3 (07:12→17:07)
[2019-05-14] MEDS: ATORVASTATIN 80 MG TAB PO SCH (07:12)
[2019-05-14] MEDS: ASPIRIN 81 MG PO SCH (07:12)
[2019-05-14] MEDS: ISOSORBIDE MONONITRATE ER 30 MG TAB.ER.24H PO SCH (07:12)
[2019-05-14] MEDS: MIDODRINE 5 MG TAB PO SCH ×3 (07:13→17:08)
[2019-05-14] MEDS: METOPROLOL TARTRATE 25 MG TAB PO SCH ×3 (07:13→20:36)
[2019-05-14] MEDS: INSULIN ASPART (NovoLOG) 100 UNIT/ML VIAL SQ SCH ×4 (07:14→20:36)
[2019-05-14 07:34] LABS: Calcium 9.5 mg/dL (8.4-10.2); Potassium 4.4 mmol/L (3.5-5.1)
[2019-05-14] MEDS ORDERED: LACTULOSE 20 GM/30 ML CUP PO ONE (10:45)
[2019-05-14] MEDS: SODIUM CHLORIDE 0.9% 1,000 ML IV SCH (10:51)
--- NOTE | 2019-05-14 11:09 | PN ---
PROGRESS NOTE Patient is seen for followup for acute kidney injury. She is currently comfortable. Patient's mentation has improved. She had significant acute kidney injury with creatinine up to 5.6 mg/dL. Patient received one treatment of hemodialysis. Following that, her renal function continued to improve on her own and her creatinine is down to 2.47. Patient has an AV fistula in her right arm from her previous history of acute kidney injury, and she was hemodialysis dependent for about 1 month post hospitalization. Currently patient has good urine output. She is more awake, not in any acute distress. Blood pressure is 156/68, heart rate 103 per minute, she is afebrile. Examination of the heart S1, S2. Examination of the lungs, bilateral breath sounds are heard. Abdomen is soft, nontender. Examination of the lower extremities shows no significant edema. 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 LABS: Show sodium 142, potassium 4.4, BUN 68, creatinine 2.47. ASSESSMENT: 1. Acute kidney injury, most likely acute tubular necrosis, currently improving, status post one treatment of hemodialysis. Patient has a previous AV fistula from her previous history of hemodialysis dependent acute kidney injury for about a month. 2. Altered mentation initially, possibly related to uremia. However, patient did need Narcan as well a couple of days ago. Her mentation seems to be slowly improving. 3. CKD mineral bone disorder maintained on PhosLo. 4. CKD stage III secondary to nephrosclerosis and previous history of acute kidney injury. Baseline creatinine about 1.3 mg/dL. PLAN: Continue to hold off on dialysis. Continue with IV fluids. Continue to encourage increased oral intake. Repeat labs in a.m. MMODL / IJN: [id number] /
--- NOTE | 2019-05-14 11:37 | XR ---
EXAMINATION TYPE: XR abdomen complete w decub DATE OF EXAM: 05/14/2019 HISTORY: Pain. Technique: 4 views of the abdomen are submitted. Comparison: None. Findings: There is no convincing evidence of pneumoperitoneum. The Bowel gas pattern is nonspecific and nonobstructive. No sizable air-fluid levels are seen. No mass effects are noted. No renal calcifications are identified. IMPRESSION: 1. Nonspecific nonobstructive bowel gas pattern
[2019-05-14 11:45] LABS: Glucose,Whole Blood 166 mg/dL (75-99)
[2019-05-14] MEDS: PANTOPRAZOLE 40 MG/10 ML VIAL IVP SCH (11:54)
--- NOTE | 2019-05-14 13:10 | CT ---
EXAMINATION TYPE: CT abdomen wo con DATE OF EXAM: 05/14/2019 COMPARISON: 02/24/2019 HISTORY: Mid abd pain CT DLP: 1010 mGycm Examination of the solid and hollow viscera is limited given the lack of contrast. CT of the abdomen was performed. FINDINGS: LUNG BASES: No evidence for nodule. No evidence for infiltrate. Cardiomegaly noted. Small pleural eff usions identified. LIVER/GB: The gallbladder surgically absent. There appears to be dilatation of the common bile duct. No space-occupying hepatic lesion. PANCREAS: The pancreas is poorly evaluated given the lack of contrast. Ill-definition of the pancreat ic head may reflect pancreatitis. Correlate with amylase and lipase. SPLEEN: No evidence for splenomegaly. No intrasplenic lesions seen. ADRENALS: No adrenal nodules identified. No evidence for thickening. KIDNEYS: No evidence for renal mass. No nephrolithiasis. No hydronephrosis. BOWEL: Mild wall thickening small bowel may reflect enteritis. Large bowel appears of normal caliber. No evidence for free air or abscess. Lymph nodes: No evidence for adenopathy greater than 1 cm. Abdominal aorta: Atheromatous changes seen. No evidence for aneurysm. Other: Small amount of ascites is noted. Severe degenerative change and postoperative changes lumbar spine. IMPRESSION: 1. Correlate for mild pancreatitis of the pancreatic head. Correlate with amylase and lipase. 2. Common bile duct dilatation in a patient who is status post cholecystectomy. 3. Small amount of ascites. 4. Correlate for small bowel enteritis. 5. Small basilar pleural effusions.
[2019-05-14 13:51] LABS: Amylase 53 U/L (30-110)
--- NOTE | 2019-05-14 14:27 | P.PN ---
Subjective Progress Note Date: 05/14/19 Principal diagnosis: 71-year-old the female came in with complaints of bilateral lower limb edema. Edema improved with IV Lasix. Patient is found to have acute renal failure with a creatinine of around 4 patient baseline creatinine appears to be around 0.7 from last November. Patient doesn't have any history of congestive heart failure patient although does have pulmonary hypertension may have right-sided heart failure. Patient in the past had acute blood necrosis from sepsis which appears to be secondary to vertebral fraction. After which patient was a temporally on hemodialysis. Patient has a unused fistula in the right arm. Patient's phosphorus is elevated to 9.5 with calcium of around 7.1. Patient denied any orthopnea proximal nocturnal dyspnea. 05/10/2019 Patient's creatinine went up a bit this is because she received quite a bit of Lasix day before yesterday. Patient is still on surfaces of normal saline does have some edema now I'm expecting her creatinine to start improving. We'll continue with IV normal saline. Patient the gets confused whenever she did see his Percocet this will be completed discontinued and patient will be started on tramadol which can also cause confusion but better than Percocet. His blood pressure remains low. 05/11/2019 Patient's serum creatinine did not improve much and patient's a serum potassium is 5.7, patient will be given capsulate will continue with IV fluids today if she had a creatinine doesn't improve may end up needing dialysis as of now patient doesn't need any emergent dialysis plan is to continue with IV fluids and monitor the creatinine. She does have increased swelling in both legs from IV fluids 05/12/2019 Since patient was lethargic and confused yesterday patient underwent hemodialysis and the patient's creatinine improved subsequently but patient remains alert oriented 1 bit confused. Patient is not significant in volume overloaded no reason for emergent dialysis patient will undergo hemodialysis most probably tomorrow nephrology evaluated the patient. 05/13/2019 Patient is less lethargic little bit more awake patient is alert oriented 2 compared to alert oriented 1 yesterday. Patient didn't receive any hemodialysis in spite of which had kidney function started improving patient will remain on surfaces of normal saline in the [employer] to monitor kidney function Constitutional: Denied any fatigue denied any fever. Cardio vascular: denied any chest pain, palpitations Gastrointestinal denied any nausea vomiting Pulmonary: Denied any shortness of breath cough Neurologic denied any new focal deficits All inpatient medications were reviewed and appropriate changes in these medications as dictated in the interval history and assessment and plan. 05/14/2019 Patient is sitting up in bed moaning stating that she is having severe abdominal and back pain. Abdominal x-ray and CAT scan showed mild pancreatitis of the pancreatic head along with a small amount of ascites and possible small bowel enteritis. Amylase and lipase were within normal limits. Ultrasound of the a bdomen was ordered and is pending at this time. Currently patient denied any chest pain or palpitations. Patient has been afebrile. Patient denies any nausea or vomiting and has been tolerating small amounts of a diet. Patient has not had a bowel movement since Friday. Objective - Vital Signs Vital signs: Vital Signs Temp 97.7 F 05/14/19 07:00 Pulse 110 H 05/14/19 13:30 Resp 17 05/14/19 11:31 BP 158/85 05/14/19 11:31 Pulse Ox 96 05/14/19 11:31 Intake & Output 05/13/19 05/14/19 05/14/19 18:59 06:59 18:59 Intake Total 140 820 Output Total 475 450 Balance -335 370 Intake: Intake, IV Titration 820 Amount Sodium Chloride 0.9% 1, 820 000 ml @ 75 mls/hr IV . [id number] [facility] Rx#:[id number] Oral 140 Output: Urine 475 450 Uretheral (Simms) 475 450 Other: Voiding Method Indwelling Catheter Indwelling Catheter Indwelling Catheter - Exam GENERAL: The patient is alert and oriented x2, not in any acute distress. Well developed, well nourished. HEENT: Pupils are round and equally reacting to light. EOMI. No scleral icterus. No conjunctival pallor. Normocephalic, atraumatic. No pharyngeal erythema. No thyromegaly. CARDIOVASCULAR: S1 and S2 present. No murmurs, rubs, or gallops. PULMONARY: Chest is clear to auscultation, no wheezing or crackles. Patient has a lipoma in the back of the neck. ABDOMEN: Soft, mild epigastric tenderness noted on palpation, nondistended, normoactive bowel sounds. No palpable organomegaly. MUSCULOSKELETAL: No joint swelling or deformity. EXTREMITIES: No cyanosis, clubbing, edema is bit worse today because of IV fluids NEUROLOGICAL: She is less confused compared to yesterday. SKIN: No rashes. - Labs CBC & Chem 7: 05/12/19 05:51 05/14/19 07:10 Labs: Abnormal Lab Results - Last 24 Hours (Table) 05/13/19 05/13/19 05/13/19 Range/Units 16:07 16:42 20:08 Carbon Dioxide (22-30) mmol/L BUN (7-17) mg/dL Creatinine (0.52-1.04) mg/dL Glucose (74-99) mg/dL POC Glucose (mg/dL) 155 H 163 H 175 H (75-99) mg/dL Lipase (23-300) U/L 05/14/19 05/14/19 05/14/19 Range/Units 07:02 07:10 07:10 Carbon Dioxide 21 L (22-30) mmol/L BUN 68 H (7-17) mg/dL Creatinine 2.47 H (0.52-1.04) mg/dL Glucose 170 H (74-99) mg/dL POC Glucose (mg/dL) 160 H (75-99) mg/dL Lipase 310 H (23-300) U/L 05/14/19 Range/Units 11:41 Carbon Dioxide (22-30) mmol/L BUN (7-17) mg/dL Creatinine (0.52-1.04) mg/dL Glucose (74-99) mg/dL POC Glucose (mg/dL) 166 H (75-99) mg/dL Lipase (23-300) U/L Assessment and Plan Assessment: -acute renal failure: Secondary to diuretic therapy which will be held and the patient was started on IV fluids at 75 mL per hour, she is on PhosLo and calcium carbonate repeat basic basic profile tomorrow. Patient's creatinine is improving without dialysis. patient received 1 session of hemodialysis on Friday. Patient had a CAT scan of the head which did not show any significant abnormality acutely. - right-sided heart failure, cor pulmonale. Right now this is not an issue patient has acute renal failure secondary to diuretic therapy and hypotension. -History of hemodialysis dependence in the past -Hypertension: Secondary to diuretic therapy and OTILIO inhibitor which will be held secondary to renal failure -Hyponatremia hypovolemic hyponatremia, resolved patient on IV fluids -Hyperphosphatasemia secondary to renal failure -Elevated TSH, last 24 possible sick euthyroid syndrome patient is on levothyroxine for hepatitis from same dose will be continued for now -DVT in the past -Atrial fibrillation -Type 2 diabetes mellitus with diabetic peripheral neuropathy -Hypothyroidism -DVT prophylaxis with subq heparin Plan: Patient underwent abdominal x-ray today showing a nonobstructive nonspecific bowel gas pattern. CAT scan of the abdomen today showed possible mild pancreatitis of the pancreatic head, small amount of ascites, possible small bowel enteritis, with small basilar pleural effusions. Amylase is 53 and lipase is 310. Ultrasound of the abdomen was ordered and is currently pending at this time. Nephrology following. Creatinine today is slightly improved and is 2.47. Lactulose was given also as the patient has not had a bowel movement in approximately 5 days. Will continue to monitor closely. Further recommendations to follow.
--- NOTE | 2019-05-14 14:28 | US ---
EXAMINATION TYPE: US abdomen limited DATE OF EXAM: 05/14/2019 COMPARISON: CT earlier today. Older CT February 24, 2019 and October 02, 2018 & US 2019 CLINICAL HISTORY: Attention to common bile duct. Dilated CBD seen on recent CT, history of cholecyste ctomy, exam done portable. EXAM MEASUREMENTS: Liver Length: 15.8 cm CBD: 1.7 cm Right Kidney: 11.0 x 5.0 x 4.6 cm Difficult and limited study due to patient body habitus Pancreas: duct seen measuring 0.4cm Liver: heterogeneous Gallbladder: surgically absent Evidence for sonographic Singh's sign: no CBD: dilated at 1.7cm Right Kidney: wnl Suboptimal study due to body habitus.Heterogeneous moderate extra hepatic biliary dilatation is prese nt at least back to September 2018 and measured up to [address] Gallbladder surgically absent. Over all heterogeneous liver redemonstrated. No significant new intrahepatic biliary dilatation. Mild to m oderate left-sided intrahepatic biliary dilatation appreciated better on recent CT. IMPRESSION:
[2019-05-14 16:49] LABS: Glucose,Whole Blood 179 mg/dL (75-99)
[2019-05-14 20:04] LABS: Glucose,Whole Blood 213 mg/dL (75-99)
[2019-05-15] MEDS: SODIUM CHLORIDE 0.9% 1,000 ML IV SCH (00:48)
[2019-05-15] MEDS: HEPARIN SODIUM,PORCINE 5,000 UNIT/ML 1 ML VIAL SQ SCH ×4 (00:49→23:01)
[2019-05-15] MEDS: ONDANSETRON 4 MG/2 ML VIAL IVP PRN (02:05)
[2019-05-15] MEDS: LEVOTHYROXINE 125 MCG TAB PO SCH (05:09)
[2019-05-15 05:18] LABS: Glucose,Whole Blood 157 mg/dL (75-99)
[2019-05-15 07:23] LABS: Glucose,Whole Blood 219 mg/dL (75-99)
[2019-05-15] MEDS: PANTOPRAZOLE 40 MG/10 ML VIAL IVP SCH (07:42)
[2019-05-15] MEDS: MIDODRINE 5 MG TAB PO SCH ×3 (07:43→17:19)
[2019-05-15] MEDS: ATORVASTATIN 80 MG TAB PO SCH (07:43)
[2019-05-15] MEDS: SODIUM BICARBONATE TAB 650 MG TAB PO SCH ×3 (07:43→20:46)
[2019-05-15] MEDS: CALCIUM ACETATE 667 MG TAB PO SCH ×3 (07:43→17:19)
[2019-05-15] MEDS: INSULIN ASPART (NovoLOG) 100 UNIT/ML VIAL SQ SCH ×4 (07:43→20:47)
[2019-05-15] MEDS: ASPIRIN 81 MG PO SCH (07:43)
[2019-05-15] MEDS: ISOSORBIDE MONONITRATE ER 30 MG TAB.ER.24H PO SCH (07:44)
[2019-05-15] MEDS: METOPROLOL TARTRATE 25 MG TAB PO SCH ×3 (07:44→20:47)
[2019-05-15 09:21] LABS: Glucose,Whole Blood 203 mg/dL (75-99)
[2019-05-15 09:25] LABS: Calcium 9.3 mg/dL (8.4-10.2); Potassium 3.9 mmol/L (3.5-5.1)
--- NOTE | 2019-05-15 10:10 | P.PN ---
Subjective Patient is seen in follow-up for acute kidney injury and chronic kidney disease. Patient received one hemodialysis treatment this admission. Renal function has been stable since. Creatinine 2.37 today. She has a Simms catheter. Patient is nonoliguric. Currently she is resting in bed. She does admit to dyspnea. Abdominal CT done May 14 revealed small amount of ascites and pleural effusions. Vital signs are stable. General: The patient appeared well nourished and normally developed. HEENT: Head exam is unremarkable. Neck is without jugular venous distension. LUNGS: Lungs are clear to auscultation and percussion. Breath sounds decreased. HEART: Rate and Rhythm are regular. First and second heart sounds normal. No murmurs, rubs or gallops. ABDOMEN: Abdominal exam reveals normal bowel sounds. Non-tender and non- distended. EXTREMITITES: 1+ edema. Objective - Vital Signs Vital signs: Vital Signs Temp 98 F 05/15/19 08:00 Pulse 100 05/15/19 08:00 Resp 14 05/15/19 08:00 BP 147/80 05/15/19 08:00 Pulse Ox 99 05/15/19 08:00 Intake & Output 05/14/19 05/15/19 05/15/19 18:59 06:59 18:59 Intake Total 222 222 Output Total 400 325 Balance -178 -325 222 Weight 120.5 kg Intake: Oral 222 222 Output: Urine 400 325 Other: Voiding Method Indwelling Catheter Indwelling Catheter Indwelling Catheter # Voids 1 # Bowel Movements 1 - Labs CBC & Chem 7: 05/12/19 05:51 05/15/19 08:41 Labs: Abnormal Lab Results - Last 24 Hours (Table) 05/14/19 05/14/19 05/14/19 Range/Units 07:10 11:41 16:47 BUN (7-17) mg/dL Creatinine (0.52-1.04) mg/dL Glucose (74-99) mg/dL POC Glucose (mg/dL) 166 H 179 H (75-99) mg/dL Lipase 310 H (23-300) U/L 05/14/19 05/15/19 05/15/19 Range/Units 19:55 05:16 07:21 BUN (7-17) mg/dL Creatinine (0.52-1.04) mg/dL Glucose (74-99) mg/dL POC Glucose (mg/dL) 213 H 157 H 219 H (75-99) mg/dL Lipase (23-300) U/L 05/15/19 05/15/19 Range/Units 08:41 09:20 BUN 72 H (7-17) mg/dL Creatinine 2.37 H (0.52-1.04) mg/dL Glucose 212 H (74-99) mg/dL POC Glucose (mg/dL) 203 H (75-99) mg/dL Lipase (23-300) U/L Assessment and Plan Plan: Assessment: 1. Acute kidney injury secondary to ATN. Patient required one treatment of hemodialysis this admission. Patient has a previous AV fistula due to her hemodialysis dependent acute kidney injury in the past. Renal function stable. Creatinine 2.37 today. 2. Chronic kidney disease stage III with baseline creatinine near 1.3 secondary to nephrosclerosis and prior acute kidney injury. 3. Altered mental status secondary to uremia. Better. 4. Chronic kidney disease mineral bone disease maintained on PhosLo. 5. Volume overload. 6. Hypertension with chronic kidney disease. Controlled. Plan: Hep-Lock IV fluids. Start IV Lasix 40 mg twice daily. Check chest x-ray. Repeat electrolytes, including phosphorus, level in the morning. Continue to hold off on hemodialysis at this time.
[2019-05-15] MEDS: FUROSEMIDE 10 MG/ML 4 ML VIAL IV SCH ×2 (10:59→20:46)
--- NOTE | 2019-05-15 11:19 | XR ---
EXAMINATION TYPE: XR chest 1V DATE OF EXAM: 05/15/2019 CLINICAL HISTORY: Difficulty breathing progress study. TECHNIQUE: Single AP portable upright view of the chest is obtained. COMPARISON: Chest x-ray from May 12, 2019 FINDINGS: Persistent cardiomegaly with dual-lead pacemaker and central vascular congestion. Overlyin g sternal wires, superior wires are broken similar to prior. No pleural effusion or pneumothorax. Oss eous structures are intact. IMPRESSION: Findings consistent with CHF exacerbation remain present and there is cardiomegaly with m ild to moderate central vascular congestion again seen.
[2019-05-15 11:37] LABS: Glucose,Whole Blood 164 mg/dL (75-99)
[2019-05-15] MEDS ORDERED: HYDROmorphone 0.5 MG/0.5 ML SYRINGE IM PRN (15:15)
[2019-05-15 17:02] LABS: Glucose,Whole Blood 155 mg/dL (75-99)
[2019-05-15] MEDS: oxyCODONE-APAP 10-325MG 1 EACH TAB PO PRN ×2 (17:19→23:01)
[2019-05-15] MEDS ORDERED: NITROGLYCERIN SL TABS 0.4 MG TAB SUBLINGUAL PRN (19:09)
[2019-05-15 20:28] LABS: Glucose,Whole Blood 202 mg/dL (75-99)
--- NOTE | 2019-05-15 21:08 | PN ---
PROGRESS NOTE DATE OF SERVICE: 05/15/2019. This 73-year-old woman who was admitted with acute renal failure, also had right-sided heart failure. The patient also had hypothyroidism. Patient being closely monitored at this time. The most recent chest x-ray which was reviewed personally by me showed features of CHF. The patient also had abdominal CT scan recently which showed mild pancreatitis and CBD dilatation status post cholecystectomy. Lipase is elevated at 310. The patient being closely monitored. After admission the patient had significant renal failure about creatinine 4.23. Improved to 2.37 at this time. PAST MEDICAL HISTORY: Reviewed. REVIEW OF SYSTEMS: Cardiovascular system: No angina. RESPIRATORY: As mentioned earlier. GI: As mentioned earlier. : No dysuria or retention. CENTRAL NERVOUS SYSTEM: No numbness or weakness. CURRENT MEDICATIONS: Reviewed and include: 1. Aspirin 81 mg. 2. Lipitor 80 mg. 3. PhosLo. 4. Lasix 40 mg IV b.i.d. 5. Heparin. 6. Dilaudid. 7. NovoLog. 8. Imdur. 9. Synthroid. 10.Lopressor. 11.Protonix. 12.Percocet. 13.Sodium bicarb. 14.Doses are reviewed. PHYSICAL EXAM: Patient is alert, oriented x3. The pulse is 85, blood pressure 146/62, respiration 18, temperature 98 degrees, pulse ox 97% on 2 L. HEENT is conjunctivae normal. Oral mucosa is moist. Neck is obese. Cardiovascular systems: S1, S2 muffled. Respiration: Breath sounds diminished in the bases. Bilateral scattered rhonchi and crackles. ABDOMEN: Soft, nontender. LEGS: Bilateral leg edema. NERVOUS SYSTEM: No focal deficits. LABS: WBC 4.2, hemoglobin 9.5, creatinine is 2.37. ASSESSMENT: 1. Acute renal failure secondary to prerenal renal failure and acute tubular necrosis. 2. Status post one session of hemodialysis. 3. Congestive heart failure, acute exacerbation with acute on chronic diastolic dysfunction ejection fraction 55-60 percent and fluid overload. 4. Hypothyroidism. 5. Obesity with body mass index 39.2. 6. Possible mild pancreatitis per CT scan. 7. Hyperkalemia secondary to renal failure present on admission. 8. Hyponatremia. 9. Anemia, normocytic anemia of chronic disease. 10.History atrial fibrillation. 11.History of congestive heart failure. 12.History of deep vein thrombosis. 13.Diabetes mellitus type 2. 14.Hypertension. 15.Hyperlipidemia. 16.Hypothyroidism. 17.History of peripheral neuropathy. 18.History of lupus. 19.History of cataracts. 20.History of appendectomy. 21.History of degenerative joint disease. 22.History of coronary artery disease, coronary artery bypass grafting. 23.History of claustrophobia. 24.Remote history of nicotine dependence. 25.FULL CODE. RECOMMENDATIONS AND DISCUSSION: This 73-year-old woman who presented with multiple medical issues, we will monitor the patient closely, continue the current medications, management and symptomatic treatment. We will increase the dose of Synthroid 150 mcg. Otherwise, continue with beta blockers. Continue with cautious diuresis. We will continue with DVT prophylaxis. Resume the home medications. Avoid nephrotoxic medications. Monitor blood sugars closely. Otherwise, continue to monitor. Guarded prognosis. Further recommendations to follow. A PT/OT evaluation and possible ECF rehab also will be considered because of the prolonged hospital stay of the patient. Further recommendations to follow. MMBAYLEEL / TAMARN: [id number] /
[2019-05-16] MEDS: oxyCODONE-APAP 10-325MG 1 EACH TAB PO PRN ×4 (04:25→20:07)
[2019-05-16 05:22] LABS: Glucose,Whole Blood 138 mg/dL (75-99)
[2019-05-16] MEDS: LEVOTHYROXINE 75 MCG TAB PO SCH (05:31)
[2019-05-16 06:52] LABS: Glucose,Whole Blood 171 mg/dL (75-99)
[2019-05-16] MEDS: PANTOPRAZOLE 40 MG/10 ML VIAL IVP SCH (07:29)
[2019-05-16] MEDS: ISOSORBIDE MONONITRATE ER 30 MG TAB.ER.24H PO SCH (07:30)
[2019-05-16] MEDS: ASPIRIN 81 MG PO SCH (07:30)
[2019-05-16] MEDS: SODIUM BICARBONATE TAB 650 MG TAB PO SCH ×3 (07:30→22:20)
[2019-05-16] MEDS: CALCIUM ACETATE 667 MG TAB PO SCH ×3 (07:30→17:09)
[2019-05-16] MEDS: ATORVASTATIN 80 MG TAB PO SCH (07:30)
[2019-05-16] MEDS: METOPROLOL TARTRATE 25 MG TAB PO SCH ×3 (07:30→22:20)
[2019-05-16] MEDS: INSULIN ASPART (NovoLOG) 100 UNIT/ML VIAL SQ SCH ×4 (07:31→22:17)
[2019-05-16] MEDS: HEPARIN SODIUM,PORCINE 5,000 UNIT/ML 1 ML VIAL SQ SCH ×2 (07:31→15:34)
[2019-05-16] MEDS: MIDODRINE 5 MG TAB PO SCH ×3 (07:31→17:40)
[2019-05-16] MEDS: FUROSEMIDE 10 MG/ML 4 ML VIAL IV SCH ×2 (09:02→22:20)
[2019-05-16 09:04] LABS: Glucose,Whole Blood 156 mg/dL (75-99)
[2019-05-16 10:57] LABS: Magnesium 2.1 mg/dL (1.6-2.3); Potassium 3.9 mmol/L (3.5-5.1)
--- NOTE | 2019-05-16 11:22 | P.PN ---
Subjective Patient is seen in follow-up for acute kidney injury and chronic kidney disease. Patient received one hemodialysis treatment this admission. Renal function has been stable since. Creatinine 2.37 today. She has a Simms catheter. Patient is nonoliguric. Currently she is resting in bed. Dyspnea is improved. Currently maintained on IV Lasix 40 mg twice daily. Urine output 4.5 L in the last 24 hours. Vital signs are stable. General: The patient appeared well nourished and normally developed. HEENT: Head exam is unremarkable. Neck is without jugular venous distension. LUNGS: Lungs are clear to auscultation and percussion. Breath sounds decreased. HEART: Rate and Rhythm are regular. First and second heart sounds normal. No murmurs, rubs or gallops. ABDOMEN: Abdominal exam reveals normal bowel sounds. Non-tender and non- distended. EXTREMITITES: 1+ edema. Objective - Vital Signs Vital signs: Vital Signs Temp 98.1 F 05/16/19 07:00 Pulse 100 05/16/19 08:00 Resp 18 05/16/19 08:00 BP 169/79 05/16/19 07:00 Pulse Ox 98 05/16/19 07:00 Intake & Output 05/15/19 05/16/19 05/16/19 18:59 06:59 18:59 Intake Total 222 225 200 Output Total 1800 2700 Balance -1578 -2475 200 Weight 120.5 kg Intake: Intake, IV Titration 225 Amount Sodium Chloride 0.9% 1, 225 000 ml @ 75 mls/hr IV . [id number] [facility] Rx#:[id number] Oral 222 200 Output: Urine 1800 2700 Other: Voiding Method Indwelling Catheter Indwelling Catheter Indwelling Catheter # Voids 1 - Labs CBC & Chem 7: 05/12/19 05:51 05/16/19 07:01 Labs: Abnormal Lab Results - Last 24 Hours (Table) 05/15/19 05/15/19 05/15/19 Range/Units 11:36 17:00 20:26 BUN (7-17) mg/dL Creatinine (0.52-1.04) mg/dL Glucose (74-99) mg/dL POC Glucose (mg/dL) 164 H 155 H 202 H (75-99) mg/dL 05/16/19 05/16/19 05/16/19 Range/Units 05:21 06:51 07:01 BUN 72 H (7-17) mg/dL Creatinine 2.37 H (0.52-1.04) mg/dL Glucose 169 H (74-99) mg/dL POC Glucose (mg/dL) 138 H 171 H (75-99) mg/dL 05/16/19 Range/Units 09:02 BUN (7-17) mg/dL Creatinine (0.52-1.04) mg/dL Glucose (74-99) mg/dL POC Glucose (mg/dL) 156 H (75-99) mg/dL Assessment and Plan Plan: Assessment: 1. Acute kidney injury secondary to ATN. Patient required one treatment of hemodialysis this admission. Patient has a previous AV fistula due to her hemo dialysis dependent acute kidney injury in the past. Renal function stable. Creatinine 2.37 today. 2. Chronic kidney disease stage III with baseline creatinine near 1.3 secondary to nephrosclerosis and prior acute kidney injury. 3. Altered mental status secondary to uremia. Better. 4. Chronic kidney disease mineral bone disease maintained on PhosLo. 5. Volume overload. Improving with diuresis. 6. Hypertension with chronic kidney disease. Controlled. Plan: Maintain IV Lasix 40 mg twice daily. Repeat electrolytes in the morning. Continue to hold off on hemodialysis at this time.
[2019-05-16 11:45] LABS: Glucose,Whole Blood 144 mg/dL (75-99)
[2019-05-16] MEDS: ONDANSETRON 4 MG/2 ML VIAL IVP PRN ×2 (13:30→20:07)
[2019-05-16 16:53] LABS: Glucose,Whole Blood 197 mg/dL (75-99)
--- NOTE | 2019-05-16 20:02 | PN ---
PROGRESS NOTE DATE OF SERVICE: 05/16/2019 This 73-year-old woman was admitted with acute renal failure secondary to prerenal acute tubular necrosis, also had one session of hemodialysis. The patient also had renal failure which is rather stable at this time. Otherwise, ejection fraction 55-60 percent. The patient also had hypothyroidism. The patient also had significant gait dysfunction also. The most recent chest x-ray which was personally reviewed by me showed CHF and cardiomegaly and persistent vascular congestion also. PAST MEDICAL HISTORY: Reviewed. REVIEW OF SYSTEMS: Cardiovascular system: No angina or palpitations. Respiratory: As mentioned earlier. GI: As mentioned earlier. no dysuria. Nervous systems: No numbness or weakness. CURRENT MEDICATIONS: Reviewed and include: 1. Aspirin 81 mg. 2. Lipitor 80 mg. 3. PhosLo 667 t.i.d. 4. Lasix 40 mg IV b.i.d. 5. Heparin 5000 subcu q.8h. 6. Dilaudid 0.5 q.4 p.r.n. 7. NovoLog p.r.n. 8. Imdur 30 mg p.o. 9. Synthroid 150 mcg p.o. daily. 10.Lopressor 25 mg p.o. t.i.d. 11.Midodrine 10 mg t.i.d. 12.Nitrostat. 13.Zofran 4 mg q.6h p.r.n. 14.Percocet 10 mg q.6h. 15.Protonix 40 mg IV daily. 16.Sodium bicarb 650 mg p.o. t.i.d. PHYSICAL EXAM: Patient is alert, oriented x2. Pulse 79. Blood pressure 150/74, respirations 16, temperature 97.3. Pulse ox 100 percent on 2 L. HEENT: Conjunctivae normal. Oral mucosa moist. NECK is no jugular venous distention. No carotid bruit. No lymph node enlargement. CARDIOVASCULAR system: S1, S2 muffled. RESPIRATORY: Breath sounds diminished in the bases. Bilateral scattered rhonchi and crackles. Expiratory wheezing. ABDOMEN: Soft, nontender. Legs are no edema. No swelling. CENTRAL NERVOUS SYSTEM: No focal deficits. LAB STUDIES: Hemoglobin 9.5. Otherwise, creatinine is 2.37. ASSESSMENT: 1. Acute renal failure secondary to prerenal factors and acute tubular necrosis. 2. Status post one session of hemodialysis. 3. Change in mental status, metabolic encephalopathy, multifactorial. 4. Congestive heart failure, acute exacerbation with acute on chronic diastolic dysfunction, ejection fraction 55-60 percent with fluid overload. 5. Hypothyroidism. 6. Obesity with body mass index of 39.2. 7. Possible mild pancreatitis per CT scan. 8. Hyperkalemia secondary to renal failure, present on admission. 9. Hyponatremia. 10.Anemia, normocytic anemia of chronic disease. 11.History of atrial fibrillation, paroxysmal. 12.History of congestive heart failure. 13.History of deep vein thrombosis. 14.Diabetes mellitus type 2. 15.Hypertension. 16.Hyperlipidemia. 17.Hypothyroidism. 18.History of peripheral neuropathy. 19.History of lupus. 20.History of cataracts. 21.History of appendectomy. 22.History of degenerative joint disease. 23.History of coronary artery disease, coronary artery bypass grafting. 24.History of claustrophobia. 25.Remote history of nicotine dependence. 26.FULL CODE. 27.Gait dysfunction. RECOMMENDATIONS AND DISCUSSION: This 73-year-old woman who presented with multiple complex medical issues, we will monitor the patient closely, continue the current medications, management and continue with IV diuretics. Closely follow with multiple consultants. Monitor creatinine closely. Chest x-ray has been reviewed personally by me and abdominal CT scan was noted. Advance diet. PT/OT evaluation, possible ECF rehab. Prognosis guarded because of multiple complex medical issues. Further recommendations to follow. MMBAYLEEL / IJN: [id number] /
[2019-05-16 21:49] LABS: Glucose,Whole Blood 174 mg/dL (75-99)
[2019-05-16] MEDS: HYDROmorphone 0.5 MG/0.5 ML SYRINGE IVP PRN (22:19)
[2019-05-17] MEDS: HEPARIN SODIUM,PORCINE 5,000 UNIT/ML 1 ML VIAL SQ SCH ×4 (00:15→23:17)
[2019-05-17 00:21] LABS: Glucose,Whole Blood 151 mg/dL (75-99)
[2019-05-17] MEDS: ONDANSETRON 4 MG/2 ML VIAL IVP PRN ×4 (01:40→21:06)
[2019-05-17] MEDS: oxyCODONE-APAP 10-325MG 1 EACH TAB PO PRN ×4 (01:40→21:06)
[2019-05-17] MEDS: LEVOTHYROXINE 75 MCG TAB PO SCH (06:13)
[2019-05-17 07:05] LABS: Glucose,Whole Blood 157 mg/dL (75-99)
[2019-05-17] MEDS: MIDODRINE 5 MG TAB PO SCH ×3 (07:12→15:20)
[2019-05-17] MEDS: CALCIUM ACETATE 667 MG TAB PO SCH ×3 (07:12→17:33)
[2019-05-17] MEDS: HYDROmorphone 0.5 MG/0.5 ML SYRINGE IVP PRN ×3 (07:13→18:01)
[2019-05-17] MEDS: INSULIN ASPART (NovoLOG) 100 UNIT/ML VIAL SQ SCH ×4 (07:13→21:06)
[2019-05-17 07:38] LABS: Anisocytosis Slight; HCT 32.6 % (34.0-46.0); HGB 10.3 gm/dL (11.4-16.0); Hypochromasia Slight; MCH 28.7 pg (25.0-35.0); MCHC 31.7 g/dL (31.0-37.0); MCV 90.4 fL (80.0-100.0); Mean Platelet Volume 8.4; Platelet Count 213 k/uL (150-450); RDW 16.2 % (11.5-15.5)
--- NOTE | 2019-05-17 07:55 | P.PN ---
Subjective Progress Note Date: 05/17/19 Principal diagnosis: Acute renal failure with fluid overload This is a continue progress on a 73-year-old white female with known history of opiate dependence who is admitted for acute renal failure. Appreciate multiple consultants input. The patient has been feeling better after having 1 dialysis treatment. Minimal ambulation is stated. No problems tolerating diet. Objective - Vital Signs Vital signs: Vital Signs Temp 97.6 F 05/17/19 07:00 Pulse 94 05/17/19 07:00 Resp 14 05/17/19 07:00 BP 146/66 05/17/19 07:00 Pulse Ox 98 05/17/19 07:00 Intake & Output 05/16/19 05/17/19 05/17/19 18:59 06:59 18:59 Intake Total 200 Output Total 1210 1200 Balance -1010 -1200 Weight 119.5 kg Intake: Oral 200 Output: Urine 1210 1200 Other: Voiding Method Indwelling Catheter Indwelling Catheter - Constitutional General appearance: Present: obese - EENT Eyes: Absent: abnormal pupil - Neck Neck: Absent: lymphadenopathy - Respiratory Respiratory: bilateral: CTA - Cardiovascular Details: Tachycardic Rhythm: regular Heart sounds: normal: S1, S2 - Gastrointestinal General gastrointestinal: Present: soft. Absent: tenderness - Integumentary Integumentary Comment(s): Lower extremity edema - Neurologic Neurologic: Absent: CNII-XII intact - Psychiatric Psychiatric: Present: A&O x's 3, appropriate affect - Labs CBC & Chem 7: 05/12/19 05:51 05/16/19 07:01 Labs: Abnormal Lab Results - Last 24 Hours (Table) 05/16/19 05/16/19 05/16/19 Range/Units 07:01 09:02 11:44 BUN 72 H (7-17) mg/dL Creatinine 2.37 H (0.52-1.04) mg/dL Glucose 169 H (74-99) mg/dL POC Glucose (mg/dL) 156 H 144 H (75-99) mg/dL 05/16/19 05/16/19 05/17/19 Range/Units 16:50 21:48 00:19 BUN (7-17) mg/dL Creatinine (0.52-1.04) mg/dL Glucose (74-99) mg/dL POC Glucose (mg/dL) 197 H 174 H 151 H (75-99) mg/dL 05/17/19 Range/Units 07:03 BUN (7-17) mg/dL Creatinine (0.52-1.04) mg/dL Glucose (74-99) mg/dL POC Glucose (mg/dL) 157 H (75-99) mg/dL Assessment and Plan (1) ARF (acute renal failure) Current Visit: Yes Status: Acute Code(s): N17.9 - ACUTE KIDNEY FAILURE, UNSPECIFIED SNOMED Code(s): 89041487 (2) Anemia of chronic disease Current Visit: Yes Status: Acute Code(s): D63.8 - ANEMIA IN OTHER CHRONIC DISEASES CLASSIFIED ELSEWHERE SNOMED Code(s): 105434178 (3) CHF exacerbation Current Visit: Yes Status: Acute Code(s): I50.9 - HEART FAILURE, UNSPECIFIED SNOMED Code(s): 351153175 (4) Weakness Current Visit: Yes Status: Acute Code(s): R53.1 - WEAKNESS SNOMED Code(s): 42160971 (5) At risk for readmission to hospital Current Visit: No Status: Acute Code(s): Z91.89 - OTH PERSONAL RISK FACTORS, NOT ELSEWHERE CLASSIFIED SNOMED Code(s): 6506398223089 (6) Spinal stenosis, lumbar Current Visit: No Status: Acute Code(s): M48.06 - SPINAL STENOSIS, LUMBAR REGION * DO NOT USE * SNOMED Code(s): 31031990 (7) Weakness Current Visit: No Status: Acute Code(s): R53.1 - WEAKNESS SNOMED Code(s): 48251473 Plan: Continue current regimen of treatment. Check CMP in a.m. per Discharge planning. Increase ambulation. Time with Patient: Greater than 30
[2019-05-17 08:08] LABS: Calcium 9.1 mg/dL (8.4-10.2); Magnesium 1.8 mg/dL (1.6-2.3); Potassium 3.6 mmol/L (3.5-5.1)
[2019-05-17] MEDS: SODIUM BICARBONATE TAB 650 MG TAB PO SCH ×3 (09:04→23:17)
[2019-05-17] MEDS: ASPIRIN 81 MG PO SCH (09:04)
[2019-05-17] MEDS: PANTOPRAZOLE 40 MG/10 ML VIAL IVP SCH (09:05)
[2019-05-17] MEDS: ISOSORBIDE MONONITRATE ER 30 MG TAB.ER.24H PO SCH (09:05)
[2019-05-17] MEDS: ATORVASTATIN 80 MG TAB PO SCH (09:05)
[2019-05-17] MEDS: METOPROLOL TARTRATE 25 MG TAB PO SCH ×3 (09:05→23:17)
[2019-05-17] MEDS: FUROSEMIDE 10 MG/ML 4 ML VIAL IV SCH ×2 (09:05→21:06)
[2019-05-17 09:13] LABS: Eosinophils # (M) 0.25 k/uL (0-0.7); Neutrophils # (M) 3.65 k/uL (1.3-7.7); Neutrophils % (M) 73 %; Nucleated Red Blood Cells 0 /100 WBC (0-0); Total Cells Counted 100
--- NOTE | 2019-05-17 10:35 | P.PN ---
Subjective Patient is seen in follow-up for acute kidney injury and chronic kidney disease. Patient received one hemodialysis treatment this admission. Renal function not improving. Creatinine 1.96 today. She has a Simms catheter. Patient is nonoliguric. Currently she is resting in bed. Dyspnea is improved. Currently maintained on IV Lasix 40 mg twice daily. Urine output 2.4 L in the last 24 hours. Vital signs are stable. General: The patient appeared well nourished and normally developed. HEENT: Head exam is unremarkable. Neck is without jugular venous distension. LUNGS: Lungs are clear to auscultation and percussion. Breath sounds decreased. HEART: Rate and Rhythm are regular. First and second heart sounds normal. No murmurs, rubs or gallops. ABDOMEN: Abdominal exam reveals normal bowel sounds. Non-tender and non- distended. EXTREMITITES: 1+ edema. Objective - Vital Signs Vital signs: Vital Signs Temp 97.6 F 05/17/19 07:00 Pulse 94 05/17/19 08:10 Resp 14 05/17/19 08:10 BP 146/66 05/17/19 07:00 Pulse Ox 98 05/17/19 07:00 Intake & Output 05/16/19 05/17/19 05/17/19 18:59 06:59 18:59 Intake Total 200 100 Output Total 1210 1200 Balance -1010 -1200 100 Weight 119.5 kg Intake: Oral 200 100 Output: Urine 1210 1200 Other: Voiding Method Indwelling Catheter Indwelling Catheter Indwelling Catheter - Labs CBC & Chem 7: 05/17/19 06:46 05/17/19 06:46 Labs: Abnormal Lab Results - Last 24 Hours (Table) 05/16/19 05/16/19 05/16/19 Range/Units 07:01 11:44 16:50 RBC (3.80-5.40) m/uL Hgb (11.4-16.0) gm/dL Hct (34.0-46.0) % RDW (11.5-15.5) % Lymphocytes # (Manual) (1.0-4.8) k/uL Carbon Dioxide (22-30) mmol/L BUN 72 H (7-17) mg/dL Creatinine 2.37 H (0.52-1.04) mg/dL Glucose 169 H (74-99) mg/dL POC Glucose (mg/dL) 144 H 197 H (75-99) mg/dL 05/16/19 05/17/19 05/17/19 Range/Units 21:48 00:19 06:46 RBC (3.80-5.40) m/uL Hgb (11.4-16.0) gm/dL Hct (34.0-46.0) % RDW (11.5-15.5) % Lymphocytes # (Manual) (1.0-4.8) k/uL Carbon Dioxide 32 H (22-30) mmol/L BUN 57 H (7-17) mg/dL Creatinine 1.96 H (0.52-1.04) mg/dL Glucose 150 H (74-99) mg/dL POC Glucose (mg/dL) 174 H 151 H (75-99) mg/dL 05/17/19 05/17/19 Range/Units 06:46 07:03 RBC 3.60 L (3.80-5.40) m/uL Hgb 10.3 L (11.4-16.0) gm/dL Hct 32.6 L (34.0-46.0) % RDW 16.2 H (11.5-15.5) % Lymphocytes # (Manual) 0.70 L (1.0-4.8) k/uL Carbon Dioxide (22-30) mmol/L BUN (7-17) mg/dL Creatinine (0.52-1.04) mg/dL Glucose (74-99) mg/dL POC Glucose (mg/dL) 157 H (75-99) mg/dL Assessment and Plan Plan: Assessment: 1. Acute kidney injury secondary to ATN. Patient required one treatment of hemodialysis this admission. Patient has a previous AV fistula due to her hemodialysis dependent acute kidney injury in the past. Renal function improving. Creatinine 1.96 today. 2. Chronic kidney disease stage III with baseline creatinine near 1.3 secondary to nephrosclerosis and prior acute kidney injury. 3. Altered mental status secondary to uremia. Better. 4. Chronic kidney disease mineral bone disease maintained on PhosLo. 5. Volume overload. Improving with diuresis. 6. Hypertension with chronic kidney disease. Controlled. Plan: Maintain IV Lasix 40 mg twice daily. Repeat electrolytes in the morning. Continue to hold off on hemodialysis at this time. Change to regular diet.
[2019-05-17 11:09] LABS: Glucose,Whole Blood 156 mg/dL (75-99)
[2019-05-17 16:37] LABS: Glucose,Whole Blood 200 mg/dL (75-99)
[2019-05-17 20:02] LABS: Glucose,Whole Blood 190 mg/dL (75-99)
[2019-05-18] MEDS: HYDROmorphone 0.5 MG/0.5 ML SYRINGE IVP PRN ×3 (01:07→19:56)
[2019-05-18] MEDS: LEVOTHYROXINE 75 MCG TAB PO SCH (04:22)
[2019-05-18] MEDS: oxyCODONE-APAP 10-325MG 1 EACH TAB PO PRN ×4 (04:23→22:12)
[2019-05-18] MEDS: ONDANSETRON 4 MG/2 ML VIAL IVP PRN ×4 (04:23→22:12)
[2019-05-18 06:54] LABS: Glucose,Whole Blood 133 mg/dL (75-99)
[2019-05-18] MEDS: FUROSEMIDE 10 MG/ML 4 ML VIAL IV SCH ×2 (07:46→19:56)
[2019-05-18] MEDS: HEPARIN SODIUM,PORCINE 5,000 UNIT/ML 1 ML VIAL SQ SCH ×3 (07:46→22:12)
[2019-05-18] MEDS: CALCIUM ACETATE 667 MG TAB PO SCH ×3 (07:47→17:02)
[2019-05-18] MEDS: METOPROLOL TARTRATE 25 MG TAB PO SCH ×3 (07:47→19:56)
[2019-05-18] MEDS: ISOSORBIDE MONONITRATE ER 30 MG TAB.ER.24H PO SCH (07:47)
[2019-05-18] MEDS: MIDODRINE 5 MG TAB PO SCH ×2 (07:47→12:14)
[2019-05-18] MEDS: SODIUM BICARBONATE TAB 650 MG TAB PO SCH (07:47)
[2019-05-18] MEDS: ATORVASTATIN 80 MG TAB PO SCH (07:47)
[2019-05-18] MEDS: ASPIRIN 81 MG PO SCH (07:47)
[2019-05-18] MEDS: PANTOPRAZOLE 40 MG TABLET PO SCH (07:47)
[2019-05-18] MEDS: INSULIN ASPART (NovoLOG) 100 UNIT/ML VIAL SQ SCH ×4 (07:59→22:12)
[2019-05-18 09:41] LABS: Anisocytosis Slight; Basophils % (A) 0 %; Eosinophils # (A) 0.2 k/uL (0-0.7); Eosinophils % (A) 3 %; HCT 34.7 % (34.0-46.0); HGB 10.7 gm/dL (11.4-16.0); Hypochromasia Moderate; Lymphocytes # (A) 1.1 k/uL (1.0-4.8); Lymphocytes % (A) 19 %; MCH 28.4 pg (25.0-35.0); MCHC 30.8 g/dL (31.0-37.0); MCV 92.1 fL (80.0-100.0); Mean Platelet Volume 8.5; Monocytes # (A) 0.4 k/uL (0-1.0); Monocytes % (A) 7 %; Neutrophils # (A) 4.1 k/uL (1.3-7.7); Neutrophils % (A) 67 %; Platelet Count 240 k/uL (150-450); RBC 3.77 m/uL (3.80-5.40); RDW 16.2 % (11.5-15.5)
[2019-05-18 10:04] LABS: Albumin 3.8 g/dL (3.5-5.0); Potassium 3.5 mmol/L (3.5-5.1); Total Bilirubin 1.1 mg/dL (0.2-1.3); Total Protein 6.8 g/dL (6.3-8.2)
[2019-05-18 11:14] LABS: Glucose,Whole Blood 149 mg/dL (75-99)
--- NOTE | 2019-05-18 12:21 | P.PN ---
Subjective Progress Note Date: 05/18/19 Follow-up for acute kidney injury. Objective - Vital Signs Vital signs: Vital Signs Temp 97.3 F L 05/18/19 07:00 Pulse 79 05/18/19 07:00 Resp 16 05/18/19 07:00 BP 164/65 05/18/19 07:00 Pulse Ox 100 05/18/19 07:00 Intake & Output 05/17/19 05/18/19 05/18/19 18:59 06:59 18:59 Intake Total 986 500 237 Output Total 3000 2500 Balance 986 -2500 -2267 Weight 119.5 kg 116 kg Intake: Oral 986 500 237 Output: Urine 3000 2500 Uretheral (Simms) 3000 900 Other: Voiding Method Indwelling Catheter Indwelling Catheter Indwelling Catheter # Voids 1 - Exam No acute distress S1-S2 heard Lungs clear Abdomen soft Edema - Labs CBC & Chem 7: 05/18/19 07:53 05/18/19 07:53 Labs: Abnormal Lab Results - Last 24 Hours (Table) 05/17/19 05/17/19 05/18/19 Range/Units 16:36 20:01 06:53 RBC (3.80-5.40) m/uL Hgb (11.4-16.0) gm/dL MCHC (31.0-37.0) g/dL RDW (11.5-15.5) % Carbon Dioxide (22-30) mmol/L BUN (7-17) mg/dL Creatinine (0.52-1.04) mg/dL Glucose (74-99) mg/dL POC Glucose (mg/dL) 200 H 190 H 133 H (75-99) mg/dL AST (14-36) U/L ALT (4-34) U/L 05/18/19 05/18/19 05/18/19 Range/Units 07:53 07:53 11:13 RBC 3.77 L (3.80-5.40) m/uL Hgb 10.7 L (11.4-16.0) gm/dL MCHC 30.8 L (31.0-37.0) g/dL RDW 16.2 H (11.5-15.5) % Carbon Dioxide 33 H (22-30) mmol/L BUN 44 H (7-17) mg/dL Creatinine 1.57 H (0.52-1.04) mg/dL Glucose 133 H (74-99) mg/dL POC Glucose (mg/dL) 149 H (75-99) mg/dL AST 54 H (14-36) U/L ALT 37 H (4-34) U/L Assessment and Plan Assessment: #1 acute kidney injury secondary to ischemic ATN. She required 1 hemodialysis treatment during admission. #2 chronic kidney disease stage III baseline creatinine 1.3 MG per DL. 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 Continue with Lasix 40 mg twice a day. #2 labs in the morning
[2019-05-18 16:30] LABS: Glucose,Whole Blood 208 mg/dL (75-99)
[2019-05-18 21:39] LABS: Glucose,Whole Blood 174 mg/dL (75-99)
--- NOTE | 2019-05-19 00:07 | P.PN ---
Subjective Principal diagnosis: Acute renal failure with fluid overload This is a continue progress on a 73-year-old white female with known history of opiate dependence who is admitted for acute renal failure. Appreciate multiple consultants input. The patient has been feeling better after having 1 dialysis treatment. Minimal ambulation is stated. No problems tolerating diet. Objective - Vital Signs Vital signs: Vital Signs Temp 98.6 F 05/18/19 13:30 Pulse 89 05/18/19 13:30 Resp 18 05/18/19 13:30 BP 142/64 05/18/19 13:30 Pulse Ox 100 05/18/19 13:30 Intake & Output 05/18/19 05/18/19 05/19/19 06:59 18:59 06:59 Intake Total 500 696 Output Total 3000 2500 800 Balance -2500 -1804 -800 Weight 116 kg Intake: Oral 500 696 Output: Urine 3000 2500 800 Uretheral (Simms) 3000 900 Other: Voiding Method Indwelling Catheter Indwelling Catheter - Constitutional General appearance: Present: obese - EENT Eyes: Absent: abnormal pupil - Neck Neck: Absent: lymphadenopathy - Respiratory Respiratory: bilateral: CTA - Cardiovascular Rhythm: regular Heart sounds: normal: S1, S2 Abnormal Heart Sounds: Absent: S3 Gallop - Gastrointestinal General gastrointestinal: Present: soft. Absent: tenderness - Psychiatric Psychiatric: Present: A&O x's 3 - Labs CBC & Chem 7: 05/18/19 07:53 05/18/19 07:53 Labs: Abnormal Lab Results - Last 24 Hours (Table) 05/18/19 05/18/19 05/18/19 Range/Units 06:53 07:53 07:53 RBC 3.77 L (3.80-5.40) m/uL Hgb 10.7 L (11.4-16.0) gm/dL MCHC 30.8 L (31.0-37.0) g/dL RDW 16.2 H (11.5-15.5) % Carbon Dioxide 33 H (22-30) mmol/L BUN 44 H (7-17) mg/dL Creatinine 1.57 H (0.52-1.04) mg/dL Glucose 133 H (74-99) mg/dL POC Glucose (mg/dL) 133 H (75-99) mg/dL AST 54 H (14-36) U/L ALT 37 H (4-34) U/L 05/18/19 05/18/19 05/18/19 Range/Units 11:13 16:29 21:12 RBC (3.80-5.40) m/uL Hgb (11.4-16.0) gm/dL MCHC (31.0-37.0) g/dL RDW (11.5-15.5) % Carbon Dioxide (22-30) mmol/L BUN (7-17) mg/dL Creatinine (0.52-1.04) mg/dL Glucose (74-99) mg/dL POC Glucose (mg/dL) 149 H 208 H 174 H (75-99) mg/dL AST (14-36) U/L ALT (4-34) U/L Assessment and Plan (1) ARF (acute renal failure) Current Visit: Yes Status: Acute Code(s): N17.9 - ACUTE KIDNEY FAILURE, UNSPECIFIED SNOMED Code(s): 03235822 (2) Anemia of chronic disease Current Visit: Yes Status: Acute Code(s): D63.8 - ANEMIA IN OTHER CHRONIC DISEASES CLASSIFIED ELSEWHERE SNOMED Code(s): 606395435 (3) CHF exacerbation Current Visit: Yes Status: Acute Code(s): I50.9 - HEART FAILURE, UNSPECIFIED SNOMED Code(s): 492838873 (4) Weakness Current Visit: Yes Status: Acute Code(s): R53.1 - WEAKNESS SNOMED Code(s): 19015122 (5) At risk for readmission to hospital Current Visit: No Status: Acute Code(s): Z91.89 - OTH PERSONAL RISK FACTORS, NOT ELSEWHERE CLASSIFIED SNOMED Code(s): 2046455963210 (6) Spinal stenosis, lumbar Current Visit: No Status: Acute Code(s): M48.06 - SPINAL STENOSIS, LUMBAR REGION * DO NOT USE * SNOMED Code(s): 57614714 (7) Weakness Current Visit: No Status: Acute Code(s): R53.1 - WEAKNESS SNOMED Code(s): 74247053 Plan: Renal function is significantly improved. Anticipate discharge in the next 24 Time with Patient: Less than 30
[2019-05-19] MEDS: oxyCODONE-APAP 10-325MG 1 EACH TAB PO PRN ×3 (07:11→19:29)
[2019-05-19] MEDS: HYDROmorphone 0.5 MG/0.5 ML SYRINGE IVP PRN ×3 (07:13→20:56)
[2019-05-19] MEDS: ONDANSETRON 4 MG/2 ML VIAL IVP PRN ×2 (07:24→17:41)
[2019-05-19] MEDS: LEVOTHYROXINE 75 MCG TAB PO SCH (07:24)
[2019-05-19] MEDS: CALCIUM ACETATE 667 MG TAB PO SCH ×3 (07:24→17:21)
[2019-05-19 07:26] LABS: Anisocytosis Slight; Basophils % (A) 0 %; Eosinophils # (A) 0.1 k/uL (0-0.7); Eosinophils % (A) 3 %; HCT 31.8 % (34.0-46.0); HGB 10.1 gm/dL (11.4-16.0); Hypochromasia Moderate; Lymphocytes % (A) 20 %; MCH 28.8 pg (25.0-35.0); MCHC 31.8 g/dL (31.0-37.0); MCV 90.7 fL (80.0-100.0); Mean Platelet Volume 8.8; Monocytes # (A) 0.4 k/uL (0-1.0); Monocytes % (A) 8 %; Neutrophils # (A) 3.3 k/uL (1.3-7.7); Neutrophils % (A) 66 %; Platelet Count 208 k/uL (150-450); RBC 3.51 m/uL (3.80-5.40); RDW 16.2 % (11.5-15.5)
[2019-05-19] MEDS: INSULIN ASPART (NovoLOG) 100 UNIT/ML VIAL SQ SCH ×4 (07:28→20:56)
[2019-05-19 07:30] LABS: Glucose,Whole Blood 119 mg/dL (75-99)
[2019-05-19 07:36] LABS: Albumin 3.5 g/dL (3.5-5.0); Calcium 8.7 mg/dL (8.4-10.2); Potassium 3.4 mmol/L (3.5-5.1); Total Bilirubin 1.1 mg/dL (0.2-1.3); Total Protein 6.4 g/dL (6.3-8.2)
[2019-05-19 09:41] LABS: Glucose,Whole Blood 201 mg/dL (75-99)
[2019-05-19] MEDS: FUROSEMIDE 10 MG/ML 4 ML VIAL IV SCH ×2 (10:05→20:56)
[2019-05-19] MEDS: ISOSORBIDE MONONITRATE ER 30 MG TAB.ER.24H PO SCH (10:06)
[2019-05-19] MEDS: HEPARIN SODIUM,PORCINE 5,000 UNIT/ML 1 ML VIAL SQ SCH ×3 (10:06→23:38)
[2019-05-19] MEDS: METOPROLOL TARTRATE 25 MG TAB PO SCH ×3 (10:06→20:56)
[2019-05-19] MEDS: ATORVASTATIN 80 MG TAB PO SCH (10:06)
[2019-05-19] MEDS: PANTOPRAZOLE 40 MG TABLET PO SCH (10:07)
[2019-05-19] MEDS: ASPIRIN 81 MG PO SCH (10:07)
--- NOTE | 2019-05-19 11:11 | P.DS ---
Providers Date of admission: 05/08/19 19:06 Attending physician: Virgil Hdz Consults: 05/08/19 19:02 Consult Physician Routine Consulting Provider: Kameron Reyes Consult Reason/Comments: arf Do you want consulting provider notified?: Yes Primary care physician: Virgil Hdz - Discharge Diagnosis(es) (1) ARF (acute renal failure) Current Visit: Yes Status: Acute (2) Anemia of chronic disease Current Visit: Yes Status: Acute (3) CHF exacerbation Current Visit: Yes Status: Acute (4) Weakness Current Visit: Yes Status: Acute (5) At risk for readmission to hospital Current Visit: No Status: Acute (6) Spinal stenosis, lumbar Current Visit: No Status: Acute (7) Weakness Current Visit: No Status: Acute Hospital Course: This is discharge summary 73-year-old white female essentially admitted for acute renal failure with congestive heart failure. The patient had appropriate diuresis with furosemide. Nephrology was consulted and she has had significant improvement in her renal function. Hemodialysis was done during his hospitalization and the patient seems to be tolerating diet and will be discharged in stable condition. Patient Condition at Discharge: Fair Plan - Discharge Summary Discharge Rx Participant: No New Discharge Prescriptions: New oxyCODONE-APAP 10-325MG [Percocet 10-325 mg] 1 each PO Q6H PRN tab PRN Reason: Pain Continue Levothyroxine Sodium [Synthroid] 125 mcg PO DAILY Insulin NPL/Insulin Lispro [humaLOG MIX 75-25 VIAL] See Protocol SQ AC-TID PRN PRN Reason: HIGH SUGAR Losartan [Cozaar] 50 mg PO DAILY Aspirin EC [Ecotrin Low Dose] 81 mg PO DAILY Insulin NPL/Insulin Lispro [humaLOG MIX 75-25 VIAL] 5 units SQ AC-TID oxyCODONE-APAP 10-325MG [Percocet 10-325 mg] 1 tab PO Q6H PRN PRN Reason: Pain Atorvastatin [Lipitor] 80 mg PO DAILY #30 tab Metoprolol Tartrate [Lopressor] 25 mg PO BID #60 tab Nitroglycerin Sl Tabs [Nitrostat] 0.4 mg SUBLINGUAL Q5M PRN #50 tab PRN Reason: Chest Pain Bumetanide [BUMEX] 1 mg PO TID #21 tablet Isosorbide Mononitrate ER [Imdur] 30 mg PO DAILY #7 tab Gabapentin [Neurontin] 600 mg PO TID #21 tab Pantoprazole Sodium [Protonix] 40 mg PO BID Discharge Medication List Levothyroxine Sodium [Synthroid] 125 mcg PO DAILY 11/27/15 [History] Insulin NPL/Insulin Lispro [humaLOG MIX 75-25 VIAL] See Protocol SQ AC-TID PRN 12/03/16 [History] Aspirin EC [Ecotrin Low Dose] 81 mg PO DAILY 09/09/18 [History] Insulin NPL/Insulin Lispro [humaLOG MIX 75-25 VIAL] 5 units SQ AC-TID 09/09/18 [History] Losartan [Cozaar] 50 mg PO DAILY 09/09/18 [History] oxyCODONE-APAP 10-325MG [Percocet 10-325 mg] 1 tab PO Q6H PRN 01/26/19 [History] Atorvastatin [Lipitor] 80 mg PO DAILY #30 tab 01/27/19 [Rx] Metoprolol Tartrate [Lopressor] 25 mg PO BID #60 tab 01/27/19 [Rx] Nitroglycerin Sl Tabs [Nitrostat] 0.4 mg SUBLINGUAL Q5M PRN #50 tab 01/27/19 [Rx] Bumetanide [BUMEX] 1 mg PO TID #21 tablet 02/24/19 [Rx] Gabapentin [Neurontin] 600 mg PO TID #21 tab 02/24/19 [Rx] Isosorbide Mononitrate ER [Imdur] 30 mg PO DAILY #7 tab 02/24/19 [Rx] Pantoprazole Sodium [Protonix] 40 mg PO BID 05/08/19 [History] oxyCODONE-APAP 10-325MG [Percocet 10-325 mg] 1 each PO Q6H PRN tab 05/19/19 [Rx] Follow up Appointment(s)/Referral(s): Virgil Hdz MD [Primary Care Provider] - 1-2 days [facility], [NON-STAFF] - As Needed
--- NOTE | 2019-05-19 11:42 | P.PN ---
Subjective Progress Note Date: 05/19/19 Follow-up for acute kidney injury. Objective - Vital Signs Vital signs: Vital Signs Temp 98.4 F 05/19/19 07:00 Pulse 85 05/19/19 08:00 Resp 18 05/19/19 08:00 BP 160/83 05/19/19 07:00 Pulse Ox 97 05/19/19 07:00 Intake & Output 05/18/19 05/19/19 05/19/19 18:59 06:59 18:59 Intake Total 696 1080 222 Output Total 2500 1800 1400 Balance -1804 -720 -1178 Weight 113 kg Intake: Oral 696 1080 222 Output: Urine 2500 1800 1400 Uretheral (Simms) 900 Other: Voiding Method Indwelling Catheter Indwelling Catheter Indwelling Catheter # Voids 1 - Exam No acute distress S1-S2 heard Lungs clear Abdomen soft Edema - Labs CBC & Chem 7: 05/19/19 06:21 05/19/19 06:21 Labs: Abnormal Lab Results - Last 24 Hours (Table) 05/18/19 05/18/19 05/19/19 Range/Units 16:29 21:12 06:21 RBC 3.51 L (3.80-5.40) m/uL Hgb 10.1 L (11.4-16.0) gm/dL Hct 31.8 L (34.0-46.0) % RDW 16.2 H (11.5-15.5) % Potassium (3.5-5.1) mmol/L Carbon Dioxide (22-30) mmol/L BUN (7-17) mg/dL Creatinine (0.52-1.04) mg/dL Glucose (74-99) mg/dL POC Glucose (mg/dL) 208 H 174 H (75-99) mg/dL AST (14-36) U/L 05/19/19 05/19/19 05/19/19 Range/Units 06:21 07:18 09:29 RBC (3.80-5.40) m/uL Hgb (11.4-16.0) gm/dL Hct (34.0-46.0) % RDW (11.5-15.5) % Potassium 3.4 L (3.5-5.1) mmol/L Carbon Dioxide 38 H (22-30) mmol/L BUN 34 H (7-17) mg/dL Creatinine 1.41 H (0.52-1.04) mg/dL Glucose 115 H (74-99) mg/dL POC Glucose (mg/dL) 119 H 201 H (75-99) mg/dL AST 42 H (14-36) U/L Assessment and Plan Assessment: #1 acute kidney injury secondary to ischemic ATN. She required 1 hemodialysis treatment during admission. #2 chronic kidney disease stage III baseline creatinine 1.3 MG per DL. 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 Continue with Lasix 40 mg twice a day. #2 replace potassium #3 avoid nephrotoxic agents and hypotensive episodes
[2019-05-19 12:00] LABS: Glucose,Whole Blood 284 mg/dL (75-99)
[2019-05-19 17:22] LABS: Glucose,Whole Blood 196 mg/dL (75-99)
[2019-05-19 19:48] LABS: Glucose,Whole Blood 198 mg/dL (75-99)
[2019-05-20 00:23] VITALS: RESP 16
[2019-05-20] MEDS: oxyCODONE-APAP 10-325MG 1 EACH TAB PO PRN ×3 (01:12→13:34)
[2019-05-20] MEDS: HYDROmorphone 0.5 MG/0.5 ML SYRINGE IVP PRN (02:55)
[2019-05-20] MEDS: ONDANSETRON 4 MG/2 ML VIAL IVP PRN (03:07)
[2019-05-20 06:45] LABS: Glucose,Whole Blood 114 mg/dL (75-99)
[2019-05-20 07:20] VITALS: BP 136/53; PULSE 74; TEMP 98
[2019-05-20] MEDS: ASPIRIN 81 MG PO SCH (07:32)
[2019-05-20] MEDS: CALCIUM ACETATE 667 MG TAB PO SCH ×2 (07:32→12:41)
[2019-05-20] MEDS: ISOSORBIDE MONONITRATE ER 30 MG TAB.ER.24H PO SCH (07:32)
[2019-05-20] MEDS: ATORVASTATIN 80 MG TAB PO SCH (07:32)
[2019-05-20] MEDS: PANTOPRAZOLE 40 MG TABLET PO SCH (07:32)
[2019-05-20] MEDS: METOPROLOL TARTRATE 25 MG TAB PO SCH (07:32)
[2019-05-20] MEDS: LEVOTHYROXINE 75 MCG TAB PO SCH (07:33)
[2019-05-20] MEDS: HEPARIN SODIUM,PORCINE 5,000 UNIT/ML 1 ML VIAL SQ SCH (07:33)
[2019-05-20] MEDS: FUROSEMIDE 10 MG/ML 4 ML VIAL IV SCH (07:33)
[2019-05-20] MEDS: INSULIN ASPART (NovoLOG) 100 UNIT/ML VIAL SQ SCH ×2 (07:34→12:38)
[2019-05-20 10:14] LABS: Calcium 8.6 mg/dL (8.4-10.2); Magnesium 1.4 mg/dL (1.6-2.3); Potassium 3.1 mmol/L (3.5-5.1)
[2019-05-20] MEDS ORDERED: POTASSIUM CHLORIDE ER 20 MEQ TAB.ER PO STA (10:36)
--- NOTE | 2019-05-20 10:39 | P.PN ---
Subjective Patient is seen in follow-up for acute kidney injury and chronic kidney disease. Patient received one hemodialysis treatment this admission. Renal function is improving. Creatinine 1.31 today. Patient is nonoliguric. Currently she is resting in bed. Dyspnea is improved. Currently maintained on IV Lasix 40 mg twice daily. Urine output 4.6 L in the last 24 hours. Denies chest pain or shortness of breath. Vital signs are stable. General: The patient appeared well nourished and normally developed. HEENT: Head exam is unremarkable. Neck is without jugular venous distension. LUNGS: Lungs are clear to auscultation and percussion. Breath sounds decreased. HEART: Rate and Rhythm are regular. First and second heart sounds normal. No murmurs, rubs or gallops. ABDOMEN: Abdominal exam reveals normal bowel sounds. Non-tender and non-disten ded. EXTREMITITES: 1+ edema. Objective - Vital Signs Vital signs: Vital Signs Temp 98.0 F 05/20/19 07:00 Pulse 74 05/20/19 07:00 Resp 16 05/20/19 07:00 BP 136/53 05/20/19 07:00 Pulse Ox 99 05/20/19 07:00 Intake & Output 05/19/19 05/20/19 05/20/19 18:59 06:59 18:59 Intake Total 924 100 560 Output Total 3250 1400 250 Balance -2326 -1300 310 Weight 115.5 kg Intake: Oral 924 100 560 Output: Urine 3250 1400 250 Uretheral (Simms) 1000 250 Other: Voiding Method Indwelling Catheter Indwelling Catheter Indwelling Catheter - Labs CBC & Chem 7: 05/19/19 06:21 05/20/19 09:50 Labs: Abnormal Lab Results - Last 24 Hours (Table) 05/19/19 05/19/19 05/19/19 Range/Units 11:48 17:10 19:47 Potassium (3.5-5.1) mmol/L Chloride (98-107) mmol/L Carbon Dioxide (22-30) mmol/L BUN (7-17) mg/dL Creatinine (0.52-1.04) mg/dL Glucose (74-99) mg/dL POC Glucose (mg/dL) 284 H 196 H 198 H (75-99) mg/dL Magnesium (1.6-2.3) mg/dL 05/20/19 05/20/19 Range/Units 06:33 09:50 Potassium 3.1 L (3.5-5.1) mmol/L Chloride 95 L (98-107) mmol/L Carbon Dioxide 39 H (22-30) mmol/L BUN 24 H (7-17) mg/dL Creatinine 1.31 H (0.52-1.04) mg/dL Glucose 168 H (74-99) mg/dL POC Glucose (mg/dL) 114 H (75-99) mg/dL Magnesium 1.4 L (1.6-2.3) mg/dL Assessment and Plan Plan: Assessment: 1. Acute kidney injury secondary to ATN. Patient required one treatment of hemodialysis this admission. Patient has a previous AV fistula due to her hemodialysis dependent acute kidney injury in the past. Renal function improving. Creatinine 1.31 today. 2. Chronic kidney disease stage III with baseline creatinine near 1.3 secondary to nephrosclerosis and prior acute kidney injury. 3. Altered mental status secondary to uremia. Better. 4. Chronic kidney disease mineral bone disease maintained on PhosLo. 5. Volume overload. Improving with diuresis. 6. Hypertension with chronic kidney disease. Controlled. 7. Hypokalemia secondary to diuresis. 8. Hypomagnesemia secondary to diuresis. Plan: Change Lasix to 40 mg orally twice daily. Replace potassium. 60 mg once today. Replace magnesium. 2 g IV today. I will also add maintenance potassium and magnesium supplementation. Repeat electrolytes in the morning. No need for hemodialysis at this time. Potential discharge today. Repeat BMP and magnesium level 2-3 days postdischarge. Follow up outpatient in the next 2 weeks.
[2019-05-20] MEDS: MAGNESIUM SULFATE-D5W PMX 1 GM in DEXTROSE/WATER 1 100ML.BAG IVPB SCH ×2 (11:02→12:36)
[2019-05-20 11:15] LABS: Glucose,Whole Blood 158 mg/dL (75-99)
[2019-05-20 13:29] VITALS: BMI 37.5
[2019-05-20] MEDS ORDERED: FUROSEMIDE 40 MG TAB PO SCH (16:00)
[2019-05-21] MEDS ORDERED: POTASSIUM CHLORIDE ER 10 MEQ TAB.ER.PRT PO SCH (09:00)
[2019-05-21] MEDS ORDERED: MAGNESIUM OXIDE 400 MG TAB PO SCH (09:00)
== END 2019-05-20 14:38 | disposition home health service (06) | DRG 682 ==
LOC: EC 15:00 → 3SCARD 19:06 → 4SSUR 05-13 14:53
PROVIDERS: ADMIT Family Medicine; ATTEND Family Medicine
PROC: 5A1D70Z Performance of Urinary Filtration, Intermittent, Less than 6 Hours Per Day (ICD-10-PCS; principal; 2019-05-11)
DX: N17.0 Acute kidney failure with tubular necrosis (principal); G93.41 Metabolic encephalopathy; K85.90 Acute pancreatitis without necrosis or infection, unspecified; I50.33 Acute on chronic diastolic (congestive) heart failure; I13.0 Hypertensive heart and chronic kidney disease with heart failure and stage 1 through stage 4 chronic kidney disease, or unspecified chronic kidney disease; E87.1 Hypo-osmolality and hyponatremia; I48.19 Other persistent atrial fibrillation; E87.2 Acidosis; F11.20 Opioid dependence, uncomplicated; K83.8 Other specified diseases of biliary tract; I95.9 Hypotension, unspecified; D63.1 Anemia in chronic kidney disease; E83.9 Disorder of mineral metabolism, unspecified; E83.39 Other disorders of phosphorus metabolism; I27.81 Cor pulmonale (chronic); I27.29 Other secondary pulmonary hypertension; E11.22 Type 2 diabetes mellitus with diabetic chronic kidney disease; E11.42 Type 2 diabetes mellitus with diabetic polyneuropathy; N18.3 Chronic kidney disease, stage 3 (moderate); G89.4 Chronic pain syndrome; E86.1 Hypovolemia; E89.0 Postprocedural hypothyroidism; I25.10 Atherosclerotic heart disease of native coronary artery without angina pectoris; E78.5 Hyperlipidemia, unspecified; T50.2X5A Adverse effect of carbonic-anhydrase inhibitors, benzothiadiazides and other diuretics, initial encounter; E87.5 Hyperkalemia; E87.6 Hypokalemia; E83.42 Hypomagnesemia; M48.061 Spinal stenosis, lumbar region without neurogenic claudication; R33.9 Retention of urine, unspecified; R26.9 Unspecified abnormalities of gait and mobility; M19.90 Unspecified osteoarthritis, unspecified site; F40.240 Claustrophobia; E66.9 Obesity, unspecified; Z68.39 Body mass index [BMI] 39.0-39.9, adult; Z79.82 Long term (current) use of aspirin; Z79.4 Long term (current) use of insulin; Z79.890 Hormone replacement therapy; Z79.899 Other long term (current) drug therapy; Z86.718 Personal history of other venous thrombosis and embolism; Z86.19 Personal history of other infectious and parasitic diseases; Z90.49 Acquired absence of other specified parts of digestive tract; Z87.891 Personal history of nicotine dependence; Z95.1 Presence of aortocoronary bypass graft; Z95.0 Presence of cardiac pacemaker; Z98.42 Cataract extraction status, left eye; Z98.41 Cataract extraction status, right eye; Z98.890 Other specified postprocedural states; Z87.39 Personal history of other diseases of the musculoskeletal system and connective tissue; Z85.3 Personal history of malignant neoplasm of breast; Z80.42 Family history of malignant neoplasm of prostate; Z82.49 Family history of ischemic heart disease and other diseases of the circulatory system; Z83.3 Family history of diabetes mellitus; Z80.0 Family history of malignant neoplasm of digestive organs; Z83.49 Family history of other endocrine, nutritional and metabolic diseases; Z82.61 Family history of arthritis; Z80.8 Family history of malignant neoplasm of other organs or systems
CPT/HCPCS: 36415; 70450; 71045; 71046; 74021; 74150; 76705; 76770; 80048; 80053; 81001; 82140; 82150; 82550; 82570; 83540; 83550; 83605; 83690; 83735; 84100; 84156; 84439; 84443; 84484; 85025; 85027; 85610; 85730; 86704; 86706; 87340; 90935; 93005; 93306; 96374; 99285

== ENCOUNTER 2019-08-07 05:04 | Emergency (ER) | payer MEDICARE, OTHER ==
[2019-08-07 05:12] VITALS: RESP 18; TEMP 97.8
[2019-08-07 05:39] LABS: Anisocytosis Slight; HGB 8.8 gm/dL (11.4-16.0); Hypochromasia Marked; MCH 25.7 pg (25.0-35.0); MCHC 30.3 g/dL (31.0-37.0); MCV 84.8 fL (80.0-100.0); Mean Platelet Volume 8.9; Platelet Count 177 k/uL (150-450); Poikilocytosis Slight; RBC 3.42 m/uL (3.80-5.40); WBC 5.9 k/uL (3.8-10.6)
[2019-08-07 05:41] LABS: Albumin 4.5 g/dL (3.5-5.0); Phosphorus 4.3 mg/dL (2.5-4.5); Potassium 4.2 mmol/L (3.5-5.1); Total Bilirubin 0.8 mg/dL (0.2-1.3); Total Protein 7.6 g/dL (6.3-8.2); Uric Acid 6.4 mg/dL (3.7-7.4)
[2019-08-07] MEDS ORDERED: SODIUM CHLORIDE 0.9% 1,000 ML IV ONE (05:42)
--- NOTE | 2019-08-07 05:45 | ED ---
General Adult HPI - General Chief complaint: Abdominal Pain Stated complaint: Flank Pain Time Seen by Provider: 08/07/19 05:20 Source: patient, EMS Mode of arrival: EMS Limitations: no limitations - History of Present Illness Initial comments: Tsering is a 73 yo email with extensive past medical history including episodes of kidney failure in the past she was previously on dialysis but has recovered. Patient presents the ER today for evaluation of right-sided flank pain. Patient reports pincer yesterday she was trying to stay home and not come to the hospital due to the current coronavirus epidemic however reports that tonight the pain became unbearable so she contacted EMS to come to the ER. Orts pain is in the right-sided abdomen radiating to the right flank. She cannot identify any exacerbating or relieving factors. She's taken her home Percocet with no relief. She denies any associated fevers, chills, cough, chest pain, shortness of breath, she denies any change in bowel or bladder habits. - Related Data Home Medications Medication Instructions Recorded Confirmed Levothyroxine Sodium [Synthroid] 125 mcg PO DAILY 11/27/15 05/08/19 Insulin NPL/Insulin Lispro See Protocol SQ AC-TID PRN 12/03/16 05/08/19 [humaLOG MIX 75-25 VIAL] Aspirin EC [Ecotrin Low Dose] 81 mg PO DAILY 09/09/18 05/08/19 Insulin NPL/Insulin Lispro 5 units SQ AC-TID 09/09/18 05/08/19 [humaLOG MIX 75-25 VIAL] Losartan [Cozaar] 50 mg PO DAILY 09/09/18 05/08/19 oxyCODONE-APAP 10-325MG [Percocet 1 tab PO Q6H PRN 01/26/19 05/08/19 10-325 mg] Pantoprazole Sodium [Protonix] 40 mg PO BID 05/08/19 05/08/19 Previous Rx's Medication Instructions Recorded Atorvastatin [Lipitor] 80 mg PO DAILY #30 tab 01/27/19 Metoprolol Tartrate [Lopressor] 25 mg PO BID #60 tab 01/27/19 Nitroglycerin Sl Tabs [Nitrostat] 0.4 mg SUBLINGUAL Q5M PRN #50 tab 01/27/19 Bumetanide [BUMEX] 1 mg PO TID #21 tablet 02/24/19 Gabapentin [Neurontin] 600 mg PO TID #21 tab 02/24/19 Isosorbide Mononitrate ER [Imdur] 30 mg PO DAILY #7 tab 02/24/19 oxyCODONE-APAP 10-325MG [Percocet 1 each PO Q6H PRN tab 05/19/19 10-325 mg] Phenazopyridine [Pyridium] 100 mg PO TID #9 tablet 08/07/19 Allergies Allergy/AdvReac Type Severity Reaction Status Date / Time No Known Allergies Allergy Verified 05/08/19 19:41 Review of Systems ROS Statement: Those systems with pertinent positive or pertinent negative responses have been documented in the HPI. ROS Other: All systems not noted in ROS Statement are negative. Past Medical History Past Medical History: Atrial Fibrillation, Coronary Artery Disease (CAD), Heart Failure, Diabetes Mellitus, Deep Vein Thrombosis (DVT), Hyperlipidemia, Hypertension, Renal Disease, Thyroid Disorder Additional Past Medical History / Comment(s): neuropathy,lupus, back pain, BACK WOUND-Healed, USES CANE , CATARACT bilat. History of Any Multi-Drug Resistant Organisms: VRE Date of last positivie culture/infection: 04/01/16 MDRO Source:: back Past Surgical History: Appendectomy, Back Surgery, Breast Surgery, Cholecystectomy, Coronary Bypass/CABG, Pacemaker Additional Past Surgical History / Comment(s): thyroidectomy. triple bypass 2000, CATARACT bilat EYE 11/2016, LUE dialysis port. 5 back sx. pt had 2 ablations in [place] for afib- unsuccessful. Past Anesthesia/Blood Transfusion Reactions: No Reported Reaction Additional Past Anesthesia/Blood Transfusion Reaction / Comment(s): CLAUSTROPHOBIA. HAD A BLOOD TRANSFUSION 1968-NO REACTION. Type of Cardiac Device: Permanent Pacemaker Device Placement Date:: january 2018 Past Psychological History: No Psychological Hx Reported Smoking Status: Former smoker - Past Family History Father Family Medical History: Cancer Additional Family Medical History / Comment(s): prostate cancer Mother Family Medical History: Cancer, Congestive Heart Failure (CHF), Diabetes Mellitus, Hyperlipidemia, Hypertension, Osteoarthritis (OA) Additional Family Medical History / Comment(s): colon cancer Brother(s) Family Medical History: Coronary Artery Disease (CAD), Deep Vein Thrombosis (DVT) Additional Family Medical History / Comment(s): back surgery Sister(s) Family Medical History: Hyperlipidemia Additional Family Medical History / Comment(s): thyroid cancer General Exam - General Exam Comments Initial Comments: Physical Exam GENERAL: Patient is well-developed and well-nourished. Patient is nontoxic and well-hydrated and is in no distress. HENT: Normocephalic, Atraumatic. EYES: PERRL, EOMI PULMONARY: Unlabored respirations. CARDIOVASCULAR: RRR Warm and well perfused extremities 2+ pitting edema lower extremities ABDOMEN: Non-distended Mild tenderness to palpation with no peritoneal signs SKIN: No rashes or bruising : Deferred NEUROLOGIC: Alert and oriented Normal speech Normal gait MUSCULOSKELETAL: Moving all extremities with no apparent injury PSYCHIATRIC: No SI/HI Limitations: no limitations Course Vital Signs 08/07/19 08/07/19 05:05 06:23 Temperature 97.8 F Pulse Rate 76 72 Respiratory 18 18 Rate Blood Pressure 138/101 110/62 O2 Sat by Pulse 100 100 Oximetry EKG Findings - EKG Comments: EKG Findings:: EKG was obtained at 5:22 AM, rate is 82 with rhythm of A. fib, thyroid axis, QRS [address] elevations or depressions no evidence of acute ischemia or infarction. Medical Decision Making - Medical Decision Making The patient was seen and evaluated, history obtained from patient and medical record Patient with 2 days of right sided flank pain Physical exam with no acute findings Labs resulted in no significant abnormalities patient was treated with morphine with minimal improvement in her pain Computed tomography scan results with evidence of a stone in the bladder which could have possibly passed recently no other abnormalities were noted on computed tomography scan Results were discussed with the patient, disposition options were discussed, due to the current risk of chronic virus exposure in the hospital patient prefer discharge home at this time. - Lab Data Result diagrams: 08/07/19 05:14 08/07/19 05:14 Lab Results 08/07/19 08/07/19 08/07/19 Range/Units 05:14 05:14 05:14 WBC 5.9 (3.8-10.6) k/uL RBC 3.42 L (3.80-5.40) m/uL Hgb 8.8 L (11.4-16.0) gm/dL Hct 29.0 L (34.0-46.0) % MCV 84.8 (80.0-100.0) fL MCH 25.7 (25.0-35.0) pg MCHC 30.3 L (31.0-37.0) g/dL RDW 17.0 H (11.5-15.5) % Plt Count 177 (150-450) k/uL Neutrophils % (Manual) 76 % Lymphocytes % (Manual) 18 % Monocytes % (Manual) 4 % Eosinophils % (Manual) 1 % Basophils % (Manual) 1 % Neutrophils # (Manual) 4.48 (1.3-7.7) k/uL Lymphocytes # (Manual) 1.06 (1.0-4.8) k/uL Monocytes # (Manual) 0.24 (0-1.0) k/uL Eosinophils # (Manual) 0.06 (0-0.7) k/uL Basophils # (Manual) 0.06 (0-0.2) k/uL Nucleated RBCs 0 (0-0) /100 WBC Manual Slide Review Performed Hypochromasia Marked Poikilocytosis Slight Poikilocytosis (manual Present Anisocytosis Slight Fragmented RBCs Present Sodium 139 (137-145) mmol/L Potassium 4.2 (3.5-5.1) mmol/L Chloride 101 (98-107) mmol/L Carbon Dioxide 26 (22-30) mmol/L Anion Gap 12 mmol/L BUN 46 H (7-17) mg/dL Creatinine 1.38 H (0.52-1.04) mg/dL Est GFR (CKD-EPI)AfAm 43 (>60 ml/min/1.73 sqM) Est GFR (CKD-EPI)NonAf 37 (>60 ml/min/1.73 sqM) Glucose 168 H (74-99) mg/dL Plasma Lactic Acid Young 1.0 (0.7-2.0) mmol/L Uric Acid 6.4 (3.7-7.4) mg/dL Calcium 9.0 (8.4-10.2) mg/dL Phosphorus 4.3 (2.5-4.5) mg/dL Total Bilirubin 0.8 (0.2-1.3) mg/dL AST 46 H (14-36) U/L ALT 21 (4-34) U/L Alkaline Phosphatase 117 (38-126) U/L Total Protein 7.6 (6.3-8.2) g/dL Albumin 4.5 (3.5-5.0) g/dL Urine Color Urine Appearance (Clear) Urine pH (5.0-8.0) Ur Specific [place] (1.001-1.035) Urine Protein (Negative) Urine Glucose (UA) (Negative) Urine Ketones (Negative) Urine Blood (Negative) Urine Nitrite (Negative) Urine Bilirubin (Negative) Urine Urobilinogen (<2.0) mg/dL Ur Leukocyte Esterase (Negative) 08/07/19 Range/Units 06:38 WBC (3.8-10.6) k/uL RBC (3.80-5.40) m/uL Hgb (11.4-16.0) gm/dL Hct (34.0-46.0) % MCV (80.0-100.0) fL MCH (25.0-35.0) pg MCHC (31.0-37.0) g/dL RDW (11.5-15.5) % Plt Count (150-450) k/uL Neutrophils % (Manual) % Lymphocytes % (Manual) % Monocytes % (Manual) % Eosinophils % (Manual) % Basophils % (Manual) % Neutrophils # (Manual) (1.3-7.7) k/uL Lymphocytes # (Manual) (1.0-4.8) k/uL Monocytes # (Manual) (0-1.0) k/uL Eosinophils # (Manual) (0-0.7) k/uL Basophils # (Manual) (0-0.2) k/uL Nucleated RBCs (0-0) /100 WBC Manual Slide Review Hypochromasia Poikilocytosis Poikilocytosis (manual Anisocytosis Fragmented RBCs Sodium (137-145) mmol/L Potassium (3.5-5.1) mmol/L Chloride (98-107) mmol/L Carbon Dioxide (22-30) mmol/L Anion Gap mmol/L BUN (7-17) mg/dL Creatinine (0.52-1.04) mg/dL Est GFR (CKD-EPI)AfAm (>60 ml/min/1.73 sqM) Est GFR (CKD-EPI)NonAf (>60 ml/min/1.73 sqM) Glucose (74-99) mg/dL Plasma Lactic Acid Young (0.7-2.0) mmol/L Uric Acid (3.7-7.4) mg/dL Calcium (8.4-10.2) mg/dL Phosphorus (2.5-4.5) mg/dL Total Bilirubin (0.2-1.3) mg/dL AST (14-36) U/L ALT (4-34) U/L Alkaline Phosphatase (38-126) U/L Total Protein (6.3-8.2) g/dL Albumin (3.5-5.0) g/dL Urine Color Colorless Urine Appearance Clear (Clear) Urine pH 6.5 (5.0-8.0) Ur Specific [place] 1.005 (1.001-1.035) Urine Protein Negative (Negative) Urine Glucose (UA) Negative (Negative) Urine Ketones Negative (Negative) Urine Blood Negative (Negative) Urine Nitrite Negative (Negative) Urine Bilirubin Negative (Negative) Urine Urobilinogen <2.0 (<2.0) mg/dL Ur Leukocyte Esterase Negative (Negative) Disposition Clinical Impression: Kidney stone, Chronic anemia Disposition: HOME SELF-CARE Condition: Stable Prescriptions: Phenazopyridine [Pyridium] 100 mg PO TID #9 tablet Is patient prescribed a controlled substance at d/c from ED?: No Referrals: Virgil Hdz MD [Primary Care Provider] - 1-2 days
[2019-08-07 05:59] LABS: Basophils # (M) 0.06 k/uL (0-0.2); Eosinophils # (M) 0.06 k/uL (0-0.7); Lymphocytes # (M) 1.06 k/uL (1.0-4.8); Monocytes # (M) 0.24 k/uL (0-1.0); Neutrophils # (M) 4.48 k/uL (1.3-7.7); Neutrophils % (M) 76 %; Nucleated Red Blood Cells 0 /100 WBC (0-0); RBC Fragments Present; Total Cells Counted 100
[2019-08-07 06:00] LABS: Poikilocytosis (M) Present
[2019-08-07] MEDS ORDERED: MORPHINE SULFATE 4 MG/ML SYRINGE IVP STA (06:13)
[2019-08-07 06:25] VITALS: BP 110/62; PULSE 72
[2019-08-07 06:58] LABS: Appearance,Urine Clear (Clear); Bilirubin,Urine Negative (Negative); Blood,Urine Negative (Negative); Color,Urine Colorless; Glucose,Urine (UA) Negative (Negative); Ketones,Urine Negative (Negative); Leukocyte Esterase,Urine Negative (Negative); Nitrite,Urine Negative (Negative); PH, Urine 6.5 (5.0-8.0); Protein,Urine Negative (Negative); Specific Gravity,Urine 1.005 (1.001-1.035); Urobilinogen,Urine <2.0 mg/dL (<2.0)
--- NOTE | 2019-08-07 07:09 | CT ---
EXAM: CT Abdomen and Pelvis Without Intravenous Contrast, Renal Stone Protocol CLINICAL HISTORY: ITS.REASON CT Reason: flank pain TECHNIQUE: Axial computed tomography images of the abdomen and pelvis without intravenous contrast using renal protocol. CTDI is 20 mGy and DLP is 1117 mGy-cm. This CT exam was performed using one or more of the following dose reduction techniques: automated exposure control, adjustment of the mA and/or kV according to patient size, and/or use of iterative reconstruction technique. COMPARISON: 05/14/2019 FINDINGS: Lower thorax: Mild cardiomegaly. ABDOMEN: Liver: Mildly nodular contour. Gallbladder and bile ducts: Removed. Pancreas: No ductal dilation. Spleen: No splenomegaly. Adrenals: No mass. Right kidney and ureter: No obstructing stones. No hydronephrosis. Left kidney and ureter: No obstructing stones. No hydronephrosis. Stomach and bowel: No bowel obstruction. No bowel wall thickening. Copious amounts of stool throughout the colon. PELVIS: Appendix: No findings to suggest acute appendicitis. Bladder: Punctate 1 mm stone on the left side. Moderately distended without wall thickening. Reproductive: Unremarkable. ABDOMEN and PELVIS: Intraperitoneal space: No free air. No significant fluid collection. Bones/joints: No acute fracture. No dislocation. Postsurgical changes from laminectomy. Soft tissues: Postsurgical changes in the posterior pelvic wall at the site of laminectomy.. Vasculature: No abdominal aortic aneurysm. Lymph nodes: No enlarged lymph nodes. IMPRESSION: 1. No hydronephrosis or nephrolithiasis. 2. 1 mm stone within the bladder, likely a previously passed stone. 3. Mild cardiomegaly. 4. Mildly nodular liver suggestive of early cirrhotic morphology.
[2019-08-07] MEDS ORDERED: PHENAZOPYRIDINE 100 MG TAB PO STA (07:19)
== END 2019-08-07 07:48 | disposition home or self-care (01) ==
LOC: EC 05:04
DX: N20.0 Calculus of kidney (principal); D64.9 Anemia, unspecified; N21.0 Calculus in bladder; I48.91 Unspecified atrial fibrillation; I25.10 Atherosclerotic heart disease of native coronary artery without angina pectoris; I13.2 Hypertensive heart and chronic kidney disease with heart failure and with stage 5 chronic kidney disease, or end stage renal disease; E11.22 Type 2 diabetes mellitus with diabetic chronic kidney disease; N18.6 End stage renal disease; I50.9 Heart failure, unspecified; E11.40 Type 2 diabetes mellitus with diabetic neuropathy, unspecified; Z99.2 Dependence on renal dialysis; Z95.1 Presence of aortocoronary bypass graft; Z98.890 Other specified postprocedural states; Z87.891 Personal history of nicotine dependence; Z90.49 Acquired absence of other specified parts of digestive tract; Z79.890 Hormone replacement therapy; Z79.4 Long term (current) use of insulin; Z79.82 Long term (current) use of aspirin; Z79.899 Other long term (current) drug therapy; Z53.8 Procedure and treatment not carried out for other reasons
CPT/HCPCS: 36415; 93005; 83605; 80053; 84100; 85025; 84550; 81003; 74150; 99285; 96374; J2270

== ENCOUNTER 2019-08-23 18:50 | Inpatient (IN) | payer MEDICARE, OTHER ==
[2019-08-23] MEDS ORDERED: oxyCODONE-APAP 7.5-325MG 1 EACH TAB PO STA (19:35)
[2019-08-23] MEDS ORDERED: VANCOMYCIN IV PER PHARMACY 1 EACH MISC MISCELLANE PRN (19:36)
[2019-08-23 19:38] LABS: Anisocytosis Slight; HCT 24.1 % (34.0-46.0); Hypochromasia Marked; MCH 24.8 pg (25.0-35.0); MCHC 29.6 g/dL (31.0-37.0); MCV 83.7 fL (80.0-100.0); Mean Platelet Volume 9.6; Platelet Count 148 k/uL (150-450); Poikilocytosis Slight; RBC 2.88 m/uL (3.80-5.40); RDW 17.5 % (11.5-15.5); WBC 3.3 k/uL (3.8-10.6)
[2019-08-23 19:39] LABS: Glucose,Whole Blood 237 mg/dL (75-99)
--- NOTE | 2019-08-23 19:39 | ED ---
General Adult HPI - General Chief complaint: Skin/Abscess/Foreign Body Stated complaint: bilat feet swelling Time Seen by Provider: 08/23/19 18:57 Source: patient Mode of arrival: wheelchair Limitations: no limitations - History of Present Illness Initial comments: Dictation was produced using [employer] dictation software. please excuse any grammatical, word or spelling errors. This patient was cared for during a federal and state declared state of emergency secondary to Covid 19 Chief Complaint: 73-year-old female sent in by primary care physician for cellulitis History of Present Illness: Is a 73-year-old female she was sent in by primary care physician for a cellulitic changes to the bilateral lower extremities. Patient states she's had these symptoms for weeks. She completed antibiotics recently with persistent symptoms. She was told to come to the emergency department for inpatient admission. Patient states that she has redness and pain to the bilateral lower extremities worse on the left compared to the right. Patient states she's been having some constitutional symptoms at home. She has had cellulitis multiple occasions the past. He has also been history of heart failure. Denies any shortness of breath at this time. The ROS documented in this emergency department record has been reviewed and confirmed by me. Those systems with pertinent positive or negative responses have been documented in the HPI. All other systems are other negative and/or noncontributory. PHYSICAL EXAM: General Impression: Alert and oriented x3, not in acute distress HEENT: Normocephalic atraumatic, extra-ocular movements intact, pupils equal and reactive to light bilaterally, mucous membranes moist. Cardiovascular: Heart regular rate and rhythm, S1&S2 audible, no murmurs, rubs or gallops Chest: Able to complete full sentences, no retractions, no tachypnea Abdomen: Bowel sounds present, abdomen soft, non-tender, non-distended, no organomegaly Musculoskeletal: Pulses present and equal in all extremities, no peripheral edema Motor: no focal deficits noted Neurological: CN II-XII grossly intact, no focal motor or sensory deficits noted Skin: Bilateral lower extremity erythema, heat to the bilateral tibial area. Patient states that it's tender to palpation, there is no palpable crepitus ED course: 73-year-old female presents with bilateral lower extremity pain concerning for cellulitis failed outpatient treatment. Vital signs upon arrival are within acceptable limits. Laboratory evaluation obtained. Leukopenia 3.3. Hemoglobin 7.1. Metabolic panel shows elevated renal markers. Chalo had a slightly elevated 2000. This appears to be slightly on the higher side of patient's baseline. She is not showing any signs of respiratory distress. At this point there is more concerned for cellulitis. Patient's hemoglobin is also suspect. No indication for blood transfusion at this time. Patient be admitted. Discussed patient case with Dr. Hdz and is willing to accept patients care. EKG interpretation: Ventricular rate 82, H or for ablation, QRS 108, QTC 483. No ND prolongation, no QTC prolongation, no ST or T-wave changes noted. EKG compared to 08/07/2019 showing no changes. Overall, this EKG is unremarkable - Related Data Home Medications Medication Instructions Recorded Confirmed Levothyroxine Sodium [Synthroid] 125 mcg PO DAILY 11/27/15 08/23/19 Insulin NPL/Insulin Lispro See Protocol SQ AC-TID PRN 12/03/16 08/23/19 [humaLOG MIX 75-25 VIAL] Aspirin EC [Ecotrin Low Dose] 81 mg PO DAILY 09/09/18 08/23/19 Insulin NPL/Insulin Lispro 10 units SQ DAILY@1000,1400 PRN 09/09/18 08/23/19 [humaLOG MIX 75-25 VIAL] Losartan [Cozaar] 50 mg PO DAILY 09/09/18 08/23/19 oxyCODONE-APAP 10-325MG [Percocet 1 tab PO Q6H PRN 01/26/19 08/23/19 10-325 mg] Pantoprazole Sodium [Protonix] 40 mg PO BID 05/08/19 08/23/19 Baclofen 10 mg PO TID 08/23/19 08/23/19 Silver Sulfadiazine 1 applic TOPICAL DAILY 08/23/19 08/23/19 Previous Rx's Medication Instructions Recorded Atorvastatin [Lipitor] 80 mg PO DAILY #30 tab 01/27/19 Metoprolol Tartrate [Lopressor] 25 mg PO BID #60 tab 01/27/19 Nitroglycerin Sl Tabs [Nitrostat] 0.4 mg SUBLINGUAL Q5M PRN #50 tab 01/27/19 Bumetanide [BUMEX] 1 mg PO TID #21 tablet 02/24/19 Gabapentin [Neurontin] 600 mg PO TID #21 tab 02/24/19 Isosorbide Mononitrate ER [Imdur] 30 mg PO DAILY #7 tab 02/24/19 Allergies Allergy/AdvReac Type Severity Reaction Status Date / Time No Known Allergies Allergy Verified 08/23/19 20:02 Review of Systems ROS Statement: Those systems with pertinent positive or pertinent negative responses have been documented in the HPI. ROS Other: All systems not noted in ROS Statement are negative. Past Medical History Past Medical History: Atrial Fibrillation, Coronary Artery Disease (CAD), Heart Failure, Diabetes Mellitus, Deep Vein Thrombosis (DVT), Hyperlipidemia, Hyp ertension, Renal Disease, Thyroid Disorder Additional Past Medical History / Comment(s): neuropathy,lupus, back pain, BACK WOUND-Healed, USES CANE , CATARACT bilat. History of Any Multi-Drug Resistant Organisms: VRE Date of last positivie culture/infection: 04/01/16 MDRO Source:: back Past Surgical History: Appendectomy, Back Surgery, Breast Surgery, Cholecystectomy, Coronary Bypass/CABG, Pacemaker Additional Past Surgical History / Comment(s): thyroidectomy. triple bypass 2000, CATARACT bilat EYE 11/2016, LUE dialysis port. 5 back sx. pt had 2 ablations in [place] for afib- unsuccessful. Past Anesthesia/Blood Transfusion Reactions: No Reported Reaction Additional Past Anesthesia/Blood Transfusion Reaction / Comment(s): CLAUSTROPHOBIA. HAD A BLOOD TRANSFUSION 1968-NO REACTION. Type of Cardiac Device: Permanent Pacemaker Device Placement Date:: january 2018 Past Psychological History: No Psychological Hx Reported Smoking Status: Former smoker Past Alcohol Use History: None Reported Past Drug Use History: None Reported - Past Family History Father Family Medical History: Cancer Additional Family Medical History / Comment(s): prostate cancer Mother Family Medical History: Cancer, Congestive Heart Failure (CHF), Diabetes Melli tus, Hyperlipidemia, Hypertension, Osteoarthritis (OA) Additional Family Medical History / Comment(s): colon cancer Brother(s) Family Medical History: Coronary Artery Disease (CAD), Deep Vein Thrombosis (DVT) Additional Family Medical History / Comment(s): back surgery Sister(s) Family Medical History: Hyperlipidemia Additional Family Medical History / Comment(s): thyroid cancer General Exam Limitations: no limitations Course Vital Signs 08/23/19 08/23/19 08/23/19 18:52 20:00 21:00 Temperature 97.4 F L 98.1 F 98.3 F Pulse Rate 88 72 74 Respiratory 20 16 16 Rate Blood Pressure 152/68 105/60 107/48 O2 Sat by Pulse 97 95 95 Oximetry Medical Decision Making - Lab Data Result diagrams: 08/23/19 19:27 08/23/19 19:27 Lab Results 08/23/19 08/23/19 08/23/19 Range/Units 19:27 19:27 19:27 WBC 3.3 L (3.8-10.6) k/uL RBC 2.88 L (3.80-5.40) m/uL Hgb 7.1 L D (11.4-16.0) gm/dL Hct 24.1 L (34.0-46.0) % MCV 83.7 (80.0-100.0) fL MCH 24.8 L (25.0-35.0) pg MCHC 29.6 L (31.0-37.0) g/dL RDW 17.5 H (11.5-15.5) % Plt Count 148 L (150-450) k/uL Neutrophils % [employer]EL[employer] Neutrophils % (Manual) 64 % Band Neutrophils % 2 % Lymphocytes % [employer]EL[employer] Lymphocytes % (Manual) 18 % Monocytes % [employer]ELOPER Monocytes % (Manual) 10 % Eosinophils % [employer] DEVELOPER Eosinophils % (Manual) 4 % Basophils % [employer]ELOPER Basophils % (Manual) 2 % Neutrophils # [employer] DEVELOPER Neutrophils # (Manual) 2.10 (1.3-7.7) k/uL Lymphocytes # [employer] DEVELOPER Lymphocytes # (Manual) 0.59 L (1.0-4.8) k/uL Monocytes # [employer] DEVELOPER Monocytes # (Manual) 0.33 (0-1.0) k/uL Eosinophils # [employer] DEVELOPER Eosinophils # (Manual) 0.13 (0-0.7) k/uL Basophils # [employer] DEVELOPER Basophils # (Manual) 0.07 (0-0.2) k/uL Nucleated RBCs 0 (0-0) /100 WBC Manual Slide Review Performed Hypochromasia Marked Poikilocytosis Slight Anisocytosis Slight APTT (22.0-30.0) sec Sodium 133 L (137-145) mmol/L Potassium 4.2 (3.5-5.1) mmol/L Chloride 98 (98-107) mmol/L Carbon Dioxide 23 (22-30) mmol/L Anion Gap 12 mmol/L BUN 65 H (7-17) mg/dL Creatinine 2.03 H (0.52-1.04) mg/dL Est GFR (CKD-EPI)AfAm 27 (>60 ml/min/1.73 sqM) Est GFR (CKD-EPI)NonAf 23 (>60 ml/min/1.73 sqM) Glucose 207 H (74-99) mg/dL POC Glucose (mg/dL) (75-99) mg/dL POC Glu Plant Breeder ID Calcium 7.9 L (8.4-10.2) mg/dL Troponin I <0.012 (0.000-0.034) ng/mL NT-Pro-B Natriuret Pep pg/mL 08/23/19 08/23/19 08/23/19 Range/Units 19:27 19:28 20:24 WBC (3.8-10.6) k/uL RBC (3.80-5.40) m/uL Hgb (11.4-16.0) gm/dL Hct (34.0-46.0) % MCV (80.0-100.0) fL MCH (25.0-35.0) pg MCHC (31.0-37.0) g/dL RDW (11.5-15.5) % Plt Count (150-450) k/uL Neutrophils % Neutrophils % (Manual) % Band Neutrophils % % Lymphocytes % Lymphocytes % (Manual) % Monocytes % Monocytes % (Manual) % Eosinophils % Eosinophils % (Manual) % Basophils % Basophils % (Manual) % Neutrophils # Neutrophils # (Manual) (1.3-7.7) k/uL Lymphocytes # Lymphocytes # (Manual) (1.0-4.8) k/uL Monocytes # Monocytes # (Manual) (0-1.0) k/uL Eosinophils # Eosinophils # (Manual) (0-0.7) k/uL Basophils # Basophils # (Manual) (0-0.2) k/uL Nucleated RBCs (0-0) /100 WBC Manual Slide Review Hypochromasia Poikilocytosis Anisocytosis APTT 25.2 (22.0-30.0) sec Sodium (137-145) mmol/L Potassium (3.5-5.1) mmol/L Chloride (98-107) mmol/L Carbon Dioxide (22-30) mmol/L Anion Gap mmol/L BUN (7-17) mg/dL Creatinine (0.52-1.04) mg/dL Est GFR (CKD-EPI)AfAm (>60 ml/min/1.73 sqM) Est GFR (CKD-EPI)NonAf (>60 ml/min/1.73 sqM) Glucose (74-99) mg/dL POC Glucose (mg/dL) 237 H (75-99) mg/dL POC Glu Plant Breeder ID Radha Daley Calcium (8.4-10.2) mg/dL Troponin I (0.000-0.034) ng/mL NT-Pro-B Natriuret Pep 2720 pg/mL Disposition Clinical Impression: Cellulitis Disposition: ADMITTED IP TO THIS HOSP Condition: Fair Referrals: Virgil Hdz MD [Primary Care Provider] - 1-2 days Decision Time: 21:56
[2019-08-23 19:46] LABS: Calcium 7.9 mg/dL (8.4-10.2); Potassium 4.2 mmol/L (3.5-5.1)
[2019-08-23 19:58] LABS: HGB 7.1 gm/dL (11.4-16.0)
[2019-08-23] MEDS ORDERED: VANCOMYCIN 1,750 MG in SODIUM CHLORIDE 0.9% 500 ML 500 ML IVPB ONE (20:00)
[2019-08-23 20:36] LABS: Band Neutrophils % 2 %; Basophils # (M) 0.07 k/uL (0-0.2); Eosinophils # (M) 0.13 k/uL (0-0.7); Lymphocytes # (M) 0.59 k/uL (1.0-4.8); Monocytes # (M) 0.33 k/uL (0-1.0); Neutrophils % (M) 64 %; Nucleated Red Blood Cells 0 /100 WBC (0-0); Total Cells Counted 100
[2019-08-23] MEDS ORDERED: HYDROmorphone 1 MG/ML 1 ML SYRINGE IVP STA (21:16)
--- NOTE | 2019-08-23 21:35 | XR ---
EXAMINATION TYPE: XR chest 1V portable DATE OF EXAM: 08/23/2019 COMPARISON: Chest x-ray May 15, 2019 CT chest September 30, 2018. HISTORY: Leg swelling. Pain. TECHNIQUE: Single AP portable frontal upright view of the chest is obtained. FINDINGS: The osseous structures are intact. Persisting cardiomegaly with dual lead pacemaker. Persi stent overlying sternal wires superior ones which are broken. Bilateral hilar prominence correlates w ith underlying pulmonary artery hypertension. Chronic parenchymal changes without suspicious new foca l airspace opacity, pleural effusion, or pneumothorax seen bilaterally. Mild interstitial edema with Brian B-lines in the periphery. IMPRESSION: Chronic changes and cardiomegaly with suspected mild interstitial edema. Suspect recurre nt CHF exacerbation.
[2019-08-23] MEDS ORDERED: ONDANSETRON 4 MG/2 ML VIAL IVP PRN (21:53)
[2019-08-23] MEDS: HYDROmorphone 1 MG/ML 1 ML SYRINGE IVP PRN (23:48)
[2019-08-23] MEDS: SODIUM CHLORIDE 0.9% 1,000 ML IV SCH (23:50)
[2019-08-23 23:52] LABS: Glucose,Whole Blood 147 mg/dL (75-99)
[2019-08-23] MEDS: HEPARIN SODIUM,PORCINE 5,000 UNIT/ML 1 ML VIAL SQ SCH (23:56)
[2019-08-24] MEDS: oxyCODONE-APAP 5-325MG 1 EACH TAB PO PRN ×2 (01:16→08:27)
[2019-08-24] MEDS: GABAPENTIN 300 MG CAP PO SCH ×4 (01:42→20:44)
[2019-08-24] MEDS: HYDROmorphone 1 MG/ML 1 ML SYRINGE IVP PRN ×4 (02:44→17:21)
[2019-08-24] MEDS: SODIUM CHLORIDE 0.9% 1,000 ML IV SCH ×3 (05:27→23:29)
[2019-08-24] MEDS: LEVOTHYROXINE 125 MCG TAB PO SCH (05:27)
[2019-08-24 07:13] LABS: Glucose,Whole Blood 207 mg/dL (75-99)
--- NOTE | 2019-08-24 08:00 | P.HPIM ---
History of Present Illness H&P Date: 08/24/19 Chief Complaint: Lower extremity edema This is a history and physical and a 73-year-old white female with known history of diabetes chronic pain with opiate dependence. She has a significant past medical history of recurrent cellulitis. She called me last night stating sig nificant problems with bilateral lower 70 [place] with weight gain and shortness of breath. She has no history of congestive heart failure in the past. But evaluation in emergency room did show recurrent cellulitis with anemia. We will watch this closely. No history or element of GI bleeding. I suspect it is of chronic disease and diabetes/multifactorial. Review of Systems Constitutional: Denies chills, Denies fever Eyes: denies blurred vision, denies pain Ears, nose, mouth and throat: Denies headache, Denies sore throat Cardiovascular: Reports shortness of breath, Denies chest pain Respiratory: Denies cough Gastrointestinal: Denies abdominal pain, Denies diarrhea, Denies nausea, Denies vomiting Genitourinary: Denies dysuria, Denies hematuria Musculoskeletal: Reports gait dysfunction, Reports leg numbness/tingling, Reports myalgias Integumentary: Reports rash, Denies pruritus Neurological: Reports gait dysfunction Psychiatric: Denies anxiety, Denies depression Past Medical History Past Medical History: Atrial Fibrillation, Coronary Artery Disease (CAD), Heart Failure, Diabetes Mellitus, Deep Vein Thrombosis (DVT), Hyperlipidemia, Hypertension, Renal Disease, Thyroid Disorder Additional Past Medical History / Comment(s): neuropathy,lupus, back pain, BACK WOUND-Healed, USES CANE , CATARACT bilat. History of Any Multi-Drug Resistant Organisms: VRE Date of last positivie culture/infection: 04/01/16 MDRO Source:: back Past Surgical History: Appendectomy, Back Surgery, Breast Surgery, Cholecystectomy, Coronary Bypass/CABG, Pacemaker Additional Past Surgical History / Comment(s): thyroidectomy. triple bypass 2000, CATARACT bilat EYE 11/2016, LUE dialysis port. 5 back sx. pt had 2 ablations in [place] for afib- unsuccessful. Past Anesthesia/Blood Transfusion Reactions: No Reported Reaction Additional Past Anesthesia/Blood Transfusion Reaction / Comment(s): CLAUSTROPHOBIA. HAD A BLOOD TRANSFUSION 1968-NO REACTION. Type of Cardiac Device: Permanent Pacemaker Device Placement Date:: january 2018 Past Psychological History: No Psychological Hx Reported Additional Psychological History / Comment(s): lives with grandson. independent and uses a cane. pt states she still drives. Smoking Status: Former smoker Past Alcohol Use History: None Reported Additional Past Alcohol Use History / Comment(s): STARTED SMOKING AT AGE 16 QUIT 2000 WAS SMOKING 3 PPD BY TIME SHE QUIT Past Drug Use History: None Reported - Past Family History Father Family Medical History: Cancer Additional Family Medical History / Comment(s): prostate cancer Mother Family Medical History: Cancer, Congestive Heart Failure (CHF), Diabetes Mellitus, Hyperlipidemia, Hypertension, Osteoarthritis (OA) Additional Family Medical History / Comment(s): colon cancer Brother(s) Family Medical History: Coronary Artery Disease (CAD), Deep Vein Thrombosis (DVT) Additional Family Medical History / Comment(s): back surgery Sister(s) Family Medical History: Hyperlipidemia Additional Family Medical History / Comment(s): thyroid cancer Medications and Allergies Home Medications Medication Instructions Recorded Confirmed Type Levothyroxine Sodium [Synthroid] 125 mcg PO DAILY 11/27/15 08/23/19 History Insulin NPL/Insulin Lispro See Protocol SQ AC-TID PRN 12/03/16 08/23/19 History [humaLOG MIX 75-25 VIAL] Aspirin EC [Ecotrin Low Dose] 81 mg PO DAILY 09/09/18 08/23/19 History Insulin NPL/Insulin Lispro 10 units SQ DAILY@1000,1400 PRN 09/09/18 08/23/19 History [humaLOG MIX 75-25 VIAL] Losartan [Cozaar] 50 mg PO DAILY 09/09/18 08/23/19 History oxyCODONE-APAP 10-325MG [Percocet 1 tab PO Q6H PRN 01/26/19 08/23/19 History 10-325 mg] Atorvastatin [Lipitor] 80 mg PO DAILY #30 tab 01/27/19 08/23/19 Rx Metoprolol Tartrate [Lopressor] 25 mg PO BID #60 tab 01/27/19 08/23/19 Rx Nitroglycerin Sl Tabs [Nitrostat] 0.4 mg SUBLINGUAL Q5M PRN #50 tab 01/27/19 Rx Bumetanide [BUMEX] 1 mg PO TID #21 tablet 02/24/19 08/23/19 Rx Gabapentin [Neurontin] 600 mg PO TID #21 tab 02/24/19 08/23/19 Rx Isosorbide Mononitrate ER [Imdur] 30 mg PO DAILY #7 tab 02/24/19 08/23/19 Rx Pantoprazole Sodium [Protonix] 40 mg PO BID 05/08/19 08/23/19 History Baclofen 10 mg PO TID 08/23/19 08/23/19 History Silver Sulfadiazine 1 applic TOPICAL DAILY 08/23/19 08/23/19 History Allergies Allergy/AdvReac Type Severity Reaction Status Date / Time No Known Allergies Allergy Verified 08/23/19 20:02 Physical Exam Vitals: Vital Signs Temp Pulse Pulse Resp BP BP Pulse Ox 08/24/19 04:45 97.4 F L 80 16 107/51 94 L 08/23/19 23:30 97.5 F L 82 16 124/73 96 08/23/19 21:54 98.4 F 74 16 105/51 100 08/23/19 21:00 98.3 F 74 16 107/48 95 08/23/19 20:00 98.1 F 72 16 105/60 95 08/23/19 18:52 97.4 F L 88 20 152/68 97 Intake and Output 08/23/19 08/24/19 08/24/19 22:59 06:59 14:59 Intake Total 200 Balance 200 Intake: Amount of Fluid Infused ( 200 ml) Other: Voiding Method Bedside Commode # Voids 1 Weight 104.326 kg - Constitutional General appearance: obese - EENT Eyes: EOMI - Neck Neck: no lymphadenopathy - Respiratory Respiratory: bilateral: CTA - Cardiovascular Rhythm: regular Heart sounds: normal: S1, S2 Abnormal Heart Sounds: no S3 Gallop - Gastrointestinal General gastrointestinal: soft, no tenderness - Integumentary Element of edema is noted Integumentary: cellulitis - Musculoskeletal Musculoskeletal: generalized weakness - Psychiatric Psychiatric: A&O x's 3, appropriate affect, intact judgment & insight Results CBC & Chem 7: 08/23/19 19:27 08/23/19 19:27 Labs: Abnormal Lab Results - Last 24 Hours (Table) 08/23/19 08/23/19 08/23/19 Range/Units 19:27 19:27 19:28 WBC 3.3 L (3.8-10.6) k/uL RBC 2.88 L (3.80-5.40) m/uL Hgb 7.1 L D (11.4-16.0) gm/dL Hct 24.1 L (34.0-46.0) % MCH 24.8 L (25.0-35.0) pg MCHC 29.6 L (31.0-37.0) g/dL RDW 17.5 H (11.5-15.5) % Plt Count 148 L (150-450) k/uL Lymphocytes # (Manual) 0.59 L (1.0-4.8) k/uL Sodium 133 L (137-145) mmol/L BUN 65 H (7-17) mg/dL Creatinine 2.03 H (0.52-1.04) mg/dL Glucose 207 H (74-99) mg/dL POC Glucose (mg/dL) 237 H (75-99) mg/dL Calcium 7.9 L (8.4-10.2) mg/dL 08/23/19 08/24/19 Range/Units 23:51 07:08 WBC (3.8-10.6) k/uL RBC (3.80-5.40) m/uL Hgb (11.4-16.0) gm/dL Hct (34.0-46.0) % MCH (25.0-35.0) pg MCHC (31.0-37.0) g/dL RDW (11.5-15.5) % Plt Count (150-450) k/uL Lymphocytes # (Manual) (1.0-4.8) k/uL Sodium (137-145) mmol/L BUN (7-17) mg/dL Creatinine (0.52-1.04) mg/dL Glucose (74-99) mg/dL POC Glucose (mg/dL) 147 H 207 H (75-99) mg/dL Calcium (8.4-10.2) mg/dL Thrombosis Risk Factor Assmnt - Choose All That Apply Each Factor Represents 1 point: Swollen legs (current) Each Risk Factor Represents 3 Points: Age 75 years or older Thrombosis Risk Factor Assessment Total Risk Factor Score: 4 Thrombosis Risk Factor Assessment Level: Moderate Risk Assessment and Plan (1) Cellulitis Current Visit: Yes Status: Acute Code(s): L03.90 - CELLULITIS, UNSPECIFIED SNOMED Code(s): 797425760 (2) Anemia of chronic disease Current Visit: No Status: Acute Code(s): D63.8 - ANEMIA IN OTHER CHRONIC DISEASES CLASSIFIED ELSEWHERE SNOMED Code(s): 946767223 (3) Back pain Current Visit: No Status: Acute Code(s): M54.9 - DORSALGIA, UNSPECIFIED SNOMED Code(s): 286828495 (4) Leg pain Current Visit: No Status: Acute Code(s): M79.606 - PAIN IN LEG, UNSPECIFIED SNOMED Code(s): 00610851 (5) Low back pain Current Visit: No Status: Acute Code(s): M54.5 - LOW BACK PAIN SNOMED Code(s): 702000447 (6) Spinal stenosis, lumbar Current Visit: No Status: Acute Code(s): M48.06 - SPINAL STENOSIS, LUMBAR REGION * DO NOT USE * SNOMED Code(s): 81736364 (7) Weakness Current Visit: No Status: Acute Code(s): R53.1 - WEAKNESS SNOMED Code(s): 35077733 Plan: Continue an antibiotic treatment. Watch anemia closely. Question need for 1 unit PRBC. Check CBC CMP in a.m. Check natruretic peptide if not done. Reconcile home medications. The patient is a full code at this time. Time with Patient: Greater than 30
[2019-08-24] MEDS: ATORVASTATIN 80 MG TAB PO SCH (08:27)
[2019-08-24] MEDS: PANTOPRAZOLE 40 MG TABLET PO SCH ×2 (08:27→20:44)
[2019-08-24] MEDS: LOSARTAN 50 MG TAB PO SCH (08:27)
[2019-08-24] MEDS: ASPIRIN 81 MG PO SCH (08:27)
[2019-08-24] MEDS: ISOSORBIDE MONONITRATE ER 30 MG TAB.ER.24H PO SCH (08:28)
[2019-08-24] MEDS: BACLOFEN 10 MG TAB PO SCH ×3 (08:28→20:44)
[2019-08-24] MEDS: METOPROLOL TARTRATE 25 MG TAB PO SCH ×2 (08:28→22:19)
[2019-08-24] MEDS: HEPARIN SODIUM,PORCINE 5,000 UNIT/ML 1 ML VIAL SQ SCH ×3 (08:28→23:28)
[2019-08-24] MEDS: BUMETANIDE 1 MG TAB PO SCH ×2 (08:31→17:22)
[2019-08-24] MEDS: INSULIN ASPART (NovoLOG) 100 UNIT/ML VIAL SQ SCH ×4 (08:34→20:43)
[2019-08-24] MEDS ORDERED: BUMETANIDE 1 MG TAB PO SCH (09:00)
[2019-08-24 12:26] LABS: Glucose,Whole Blood 156 mg/dL (75-99)
[2019-08-24 17:15] LABS: Glucose,Whole Blood 186 mg/dL (75-99)
[2019-08-24] MEDS ORDERED: VANCOMYCIN 1,750 MG in SODIUM CHLORIDE 0.9% 500 ML 500 ML IVPB ONE (20:00)
[2019-08-24 20:26] LABS: Glucose,Whole Blood 210 mg/dL (75-99)
[2019-08-25 00:46] LABS: Glucose,Whole Blood 173 mg/dL (75-99)
[2019-08-25] MEDS: LEVOTHYROXINE 125 MCG TAB PO SCH (05:33)
[2019-08-25 05:54] LABS: Glucose,Whole Blood 210 mg/dL (75-99)
[2019-08-25 06:26] LABS: Albumin 3.7 g/dL (3.5-5.0); Calcium 8.2 mg/dL (8.4-10.2); Potassium 4.5 mmol/L (3.5-5.1); Total Bilirubin 0.7 mg/dL (0.2-1.3); Total Protein 6.6 g/dL (6.3-8.2)
[2019-08-25 06:27] LABS: Anisocytosis Slight; HCT 23.4 % (34.0-46.0); HGB 7.2 gm/dL (11.4-16.0); Hypochromasia Marked; MCH 25.8 pg (25.0-35.0); MCHC 30.6 g/dL (31.0-37.0); MCV 84.3 fL (80.0-100.0); Mean Platelet Volume 8.8; Platelet Count 168 k/uL (150-450); Poikilocytosis Slight; RBC 2.78 m/uL (3.80-5.40); RDW 17.5 % (11.5-15.5); WBC 3.9 k/uL (3.8-10.6)
[2019-08-25] MEDS: ASPIRIN 81 MG PO SCH (07:56)
[2019-08-25] MEDS: METOPROLOL TARTRATE 25 MG TAB PO SCH ×2 (07:56→21:41)
[2019-08-25] MEDS: ISOSORBIDE MONONITRATE ER 30 MG TAB.ER.24H PO SCH (07:56)
[2019-08-25] MEDS: GABAPENTIN 300 MG CAP PO SCH ×3 (07:56→21:42)
[2019-08-25] MEDS: ATORVASTATIN 80 MG TAB PO SCH (07:56)
[2019-08-25] MEDS: PANTOPRAZOLE 40 MG TABLET PO SCH ×2 (07:57→21:42)
[2019-08-25] MEDS: LOSARTAN 50 MG TAB PO SCH (07:57)
[2019-08-25] MEDS: SODIUM CHLORIDE 0.9% 1,000 ML IV SCH ×2 (07:57→17:56)
[2019-08-25] MEDS: BACLOFEN 10 MG TAB PO SCH ×3 (07:57→21:42)
[2019-08-25] MEDS: INSULIN ASPART (NovoLOG) 100 UNIT/ML VIAL SQ SCH ×4 (07:58→21:37)
[2019-08-25] MEDS: HEPARIN SODIUM,PORCINE 5,000 UNIT/ML 1 ML VIAL SQ SCH ×2 (08:00→18:45)
[2019-08-25] MEDS: BUMETANIDE 1 MG TAB PO SCH ×2 (08:08→16:17)
--- NOTE | 2019-08-25 08:52 | P.DS ---
Providers Date of admission: 08/23/19 21:53 Expected date of discharge: 08/25/19 Attending physician: Virgil Hdz Primary care physician: Virgil Hdz - Discharge Diagnosis(es) (1) Cellulitis Current Visit: Yes Status: Acute (2) Anemia of chronic disease Current Visit: No Status: Acute (3) Back pain Current Visit: No Status: Acute (4) Leg pain Current Visit: No Status: Acute (5) Low back pain Current Visit: No Status: Acute (6) Spinal stenosis, lumbar Current Visit: No Status: Acute (7) Weakness Current Visit: No Status: Acute Hospital Course: This is a discharge summary 73-year-old female admitted for element of cellulitis and edema. She hasn't underlying history of diastolic congestive heart failure. Bumex was increased and the patient will be discharged in stable condition as a cellulitis is improved. She responded to Cipro and Levaquin the past. We'll go ahead and give her Cipro 500 mg twice a day on discharge. Patient Condition at Discharge: Fair Plan - Discharge Summary Discharge Rx Participant: No New Discharge Prescriptions: New Bumetanide [BUMEX] 2 mg PO BID@0900,1600 #60 tab Ciprofloxacin HCl [Cipro] 500 mg PO BID 7 Days #14 tab Continue Levothyroxine Sodium [Synthroid] 125 mcg PO DAILY Insulin NPL/Insulin Lispro [humaLOG MIX 75-25 VIAL] See Protocol SQ AC-TID PRN PRN Reason: HIGH SUGAR Losartan [Cozaar] 50 mg PO DAILY Aspirin EC [Ecotrin Low Dose] 81 mg PO DAILY Insulin NPL/Insulin Lispro [humaLOG MIX 75-25 VIAL] 10 units SQ DAILY@1000,1400 PRN PRN Reason: high blood sugar oxyCODONE-APAP 10-325MG [Percocet 10-325 mg] 1 tab PO Q6H PRN PRN Reason: Pain Atorvastatin [Lipitor] 80 mg PO DAILY #30 tab Metoprolol Tartrate [Lopressor] 25 mg PO BID #60 tab Nitroglycerin Sl Tabs [Nitrostat] 0.4 mg SUBLINGUAL Q5M PRN #50 tab PRN Reason: Chest Pain Isosorbide Mononitrate ER [Imdur] 30 mg PO DAILY #7 tab Gabapentin [Neurontin] 600 mg PO TID #21 tab Pantoprazole Sodium [Protonix] 40 mg PO BID Baclofen 10 mg PO TID Silver Sulfadiazine 1 applic TOPICAL DAILY Discontinued Bumetanide [BUMEX] 1 mg PO TID #21 tablet Discharge Medication List Levothyroxine Sodium [Synthroid] 125 mcg PO DAILY 11/27/15 [History] Insulin NPL/Insulin Lispro [humaLOG MIX 75-25 VIAL] See Protocol SQ AC-TID PRN 12/03/16 [History] Aspirin EC [Ecotrin Low Dose] 81 mg PO DAILY 09/09/18 [History] Insulin NPL/Insulin Lispro [humaLOG MIX 75-25 VIAL] 10 units SQ DAILY@1000,1400 PRN 09/09/18 [History] Losartan [Cozaar] 50 mg PO DAILY 09/09/18 [History] oxyCODONE-APAP 10-325MG [Percocet 10-325 mg] 1 tab PO Q6H PRN 01/26/19 [History] Atorvastatin [Lipitor] 80 mg PO DAILY #30 tab 01/27/19 [Rx] Metoprolol Tartrate [Lopressor] 25 mg PO BID #60 tab 01/27/19 [Rx] Nitroglycerin Sl Tabs [Nitrostat] 0.4 mg SUBLINGUAL Q5M PRN #50 tab 01/27/19 [Rx] Gabapentin [Neurontin] 600 mg PO TID #21 tab 02/24/19 [Rx] Isosorbide Mononitrate ER [Imdur] 30 mg PO DAILY #7 tab 02/24/19 [Rx] Pantoprazole Sodium [Protonix] 40 mg PO BID 05/08/19 [History] Baclofen 10 mg PO TID 08/23/19 [History] Silver Sulfadiazine 1 applic TOPICAL DAILY 08/23/19 [History] Bumetanide [BUMEX] 2 mg PO BID@0900,1600 #60 tab 08/25/19 [Rx] Ciprofloxacin HCl [Cipro] 500 mg PO BID 7 Days #14 tab 08/25/19 [Rx] Follow up Appointment(s)/Referral(s): Virgil Hdz MD [Primary Care Provider] - 1-2 days [facility], [NON-STAFF] -
[2019-08-25] MEDS: NALOXONE 0.4 MG/ML 1 ML VIAL IV PRN ×2 (09:13→09:16)
[2019-08-25 11:43] LABS: Glucose,Whole Blood 205 mg/dL (75-99)
--- NOTE | 2019-08-25 15:28 | CT ---
EXAMINATION TYPE: CT brain wo con DATE OF EXAM: 08/25/2019 COMPARISON: 05/12/2019 INDICATION: Altered mental status. DLP: 1154.4 mGycm, Automated exposure control for dose reduction was used. CONTRAST: None CT of the brain is performed utilizing 3 mm thick sections through the posterior fossa and 3 mm thick sections through the remaining calvarium. Study is performed within 24 hours of arrival to the hosp [facility]. No abnormal hyperdensity is present to suggest an acute intracranial hemorrhage. No mass lesion is evident. No acute infarcts are evident. Very minimal periventricular white matter hypodensity is present most likely on the basis of chronic white matter ischemic changes. Ventricles and sulci are appropriate for the patient age. Paranasal sinuses and mastoid air cells within the [id number] are clear. IMPRESSIONS: 1. Very minimal periventricular white matter ischemic changes, stable from comparison. 2. No acute intracranial process.
[2019-08-25 16:53] LABS: Glucose,Whole Blood 141 mg/dL (75-99)
--- NOTE | 2019-08-25 17:29 | P.CNNES ---
History of Present Illness Consult date: 08/25/19 Requesting physician: Virgil Hdz Reason for Consult: Altered mental status History of Present Illness: Patient is a 73-year-old female, who was recently admitted to the hospital on 08/23/2019 for cellulitis involving bilateral lower extremities. The symptoms have been present for weeks. She had completed course of antibiotic but the symptoms have persisted. She also has history of heart failure. Patient was admitted to the hospital. Apparently patient was given Dilaudid yesterday, and she became completely unresponsive. She was given 2 doses of Narcan, without any improvement. Patient underwent Computed tomography scan of head showed very minimal periventricular white matter ischemic changes, stable from comparison. No acute process. On my review, there is very dense calcification of the right vertebral artery. The lumen is patent. Basilar artery appears normal. Brain STEM appears normal. EKG shows atrial fibrillation with frequent ventricular paced complexes. Chest x-ray showed chronic changes in cardiomegaly with suspected mild interstitial edema. Suspect recurrent CHF exacerbation. Manpreet singleton's blood test shows WBC 3.9 hemoglobin 7.2, platelets 168. Sodium 135 potassium 4.5, BUN 64, creatinine 1.99. Patient's previous creatinine was 1.38 on 08/07/2019, went up to 2.03 on 08/23/2019. Liver functions with AST 48, ALT 70. TSH was elevated 11.30 on 05/08/2019. Free T4 normal. Hemoglobin A1c 7.2 on 10/02/2018. Patient's previous 2-D echo from 05/13/2019 showed atrial fibrillation. Left-ventricular systolic function is normal with EF between 55- 60%. Left atrium is severely dilated. The right atrium is not well visualized. There is mild aortic valve sclerosis. Moderate tricuspid regurgitation. Moderate pulmonary regurgitation. When I came and saw the patient, patient was sleeping, tried to wake her up but could not respond. The nurses reported that whenever patient opens her eyes, she is looking to the left and she is posturing sometimes. Please refer to examination below. Patient has atrial fibrillation. Patient is on aspirin 81 mg daily and Lipitor 40 mg. She is not on any anticoagulants. Review of Systems ROS unobtainable: due to mental status Past Medical History Past Medical History: Atrial Fibrillation, Coronary Artery Disease (CAD), Heart Failure, Diabetes Mellitus, Deep Vein Thrombosis (DVT), Hyperlipidemia, Hypertension, Renal Disease, Thyroid Disorder Additional Past Medical History / Comment(s): neuropathy,lupus, back pain, BACK WOUND-Healed, USES CANE , CATARACT bilat. History of Any Multi-Drug Resistant Organisms: VRE Date of last positivie culture/infection: 04/01/16 MDRO Source:: back Past Surgical History: Appendectomy, Back Surgery, Breast Surgery, Cholecystectomy, Coronary Bypass/CABG, Pacemaker Additional Past Surgical History / Comment(s): thyroidectomy. triple bypass 2000, CATARACT bilat EYE 11/2016, LUE dialysis port. 5 back sx. pt had 2 ablations in [place] for afib- unsuccessful. Past Anesthesia/Blood Transfusion Reactions: No Reported Reaction Additional Past Anesthesia/Blood Transfusion Reaction / Comment(s): CLAUSTROPHOBIA. HAD A BLOOD TRANSFUSION 1968-NO REACTION. Type of Cardiac Device: Permanent Pacemaker Device Placement Date:: january 2018 Past Psychological History: No Psychological Hx Reported Additional Psychological History / Comment(s): lives with grandson. independent and uses a cane. pt states she still drives. Smoking Status: Former smoker Past Alcohol Use History: None Reported Additional Past Alcohol Use History / Comment(s): STARTED SMOKING AT AGE 16 QUIT 2000 WAS SMOKING 3 PPD BY TIME SHE QUIT Past Drug Use History: None Reported - Past Family History Father Family Medical History: Cancer Additional Family Medical History / Comment(s): prostate cancer Mother Family Medical History: Cancer, Congestive Heart Failure (CHF), Diabetes Mellitus, Hyperlipidemia, Hypertension, Osteoarthritis (OA) Additional Family Medical History / Comment(s): colon cancer Brother(s) Family Medical History: Coronary Artery Disease (CAD), Deep Vein Thrombosis (DVT) Additional Family Medical History / Comment(s): back surgery Sister(s) Family Medical History: Hyperlipidemia Additional Family Medical History / Comment(s): thyroid cancer Medications and Allergies Home Medications Medication Instructions Recorded Confirmed Type Levothyroxine Sodium [Synthroid] 125 mcg PO DAILY 11/27/15 08/23/19 History Insulin NPL/Insulin Lispro See Protocol SQ AC-TID PRN 12/03/16 08/23/19 History [humaLOG MIX 75-25 VIAL] Aspirin EC [Ecotrin Low Dose] 81 mg PO DAILY 09/09/18 08/23/19 History Insulin NPL/Insulin Lispro 10 units SQ DAILY@1000,1400 PRN 09/09/18 08/23/19 History [humaLOG MIX 75-25 VIAL] Losartan [Cozaar] 50 mg PO DAILY 09/09/18 08/23/19 History oxyCODONE-APAP 10-325MG [Percocet 1 tab PO Q6H PRN 01/26/19 08/23/19 History 10-325 mg] Atorvastatin [Lipitor] 80 mg PO DAILY #30 tab 01/27/19 08/23/19 Rx Metoprolol Tartrate [Lopressor] 25 mg PO BID #60 tab 01/27/19 08/23/19 Rx Nitroglycerin Sl Tabs [Nitrostat] 0.4 mg SUBLINGUAL Q5M PRN #50 tab 01/27/19 08/23/19 Rx Gabapentin [Neurontin] 600 mg PO TID #21 tab 02/24/19 08/23/19 Rx Isosorbide Mononitrate ER [Imdur] 30 mg PO DAILY #7 tab 02/24/19 08/23/19 Rx Pantoprazole Sodium [Protonix] 40 mg PO BID 05/08/19 08/23/19 History Baclofen 10 mg PO TID 08/23/19 08/23/19 History Silver Sulfadiazine 1 applic TOPICAL DAILY 08/23/19 08/23/19 History Bumetanide [BUMEX] 2 mg PO BID@0900,1600 #60 tab 08/25/19 Rx Ciprofloxacin HCl [Cipro] 500 mg PO BID 7 Days #14 tab 08/25/19 Rx Allergies Allergy/AdvReac Type Severity Reaction Status Date / Time No Known Allergies Allergy Verified 08/23/19 20:02 Physical Examination - Vital Signs Vital Signs: Vital Signs Temp Pulse Resp BP Pulse Ox 08/25/19 14:45 97.7 F 71 20 87/34 97 08/25/19 09:16 12 08/25/19 09:13 12 08/25/19 08:00 12 08/25/19 05:26 98.3 F 110 H 16 139/74 98 08/25/19 01:07 98.6 F 104 H 16 112/50 96 08/24/19 23:34 15 08/24/19 22:18 98 99/63 08/24/19 19:58 97.3 F L 70 16 93/55 100 08/24/19 15:19 16 Intake and Output 08/25/19 08/25/19 08/25/19 06:59 14:59 22:59 Intake Total 0 Balance 0 Intake: Oral 0 Other: Voiding Method Bedside Commode Incontinent # Voids 2 1 On examination patient is an elderly female, who appears to be sleeping. I tried to wake her up, but she would not respond. Patient would not respond to sternal pressure. However when I pressed the nailbed bilaterally, she did wake up, and started frowning, but did not speak much. Patient's face appears symmetric. Pupils are round and reacting to light. Visual wallis could not be tested. No obvious gaze deviation. Patient moved her arms equally. She did not move her legs on command. Goal bilaterally. Patient has an obvious cellulitis, moderate peripheral edema. Cerebellar functions and sensations could not be tested otherwise. Patient does have evidence of myoclonic jerks of upper extremities when she was holding it up bilaterally. There was no focal weakness noted in the arms or legs. Results - Laboratory Findings CBC and BMP: 08/25/19 05:55 08/25/19 05:55 Abnormal Lab Findings: Abnormal Labs 08/23/19 08/23/19 08/23/19 19:27 19:27 19:28 WBC 3.3 L RBC 2.88 L Hgb 7.1 L D Hct 24.1 L MCH 24.8 L MCHC 29.6 L RDW 17.5 H Plt Count 148 L Lymphocytes # (Manual) 0.59 L Sodium 133 L BUN 65 H Creatinine 2.03 H Glucose 207 H POC Glucose (mg/dL) 237 H Calcium 7.9 L AST 08/23/19 08/24/19 08/24/19 23:51 07:08 12:15 WBC RBC Hgb Hct MCH MCHC RDW Plt Count Lymphocytes # (Manual) Sodium BUN Creatinine Glucose POC Glucose (mg/dL) 147 H 207 H 156 H Calcium AST 08/24/19 08/24/19 08/25/19 16:59 20:24 00:35 WBC RBC Hgb Hct MCH MCHC RDW Plt Count Lymphocytes # (Manual) Sodium BUN Creatinine Glucose POC Glucose (mg/dL) 186 H 210 H 173 H Calcium AST 08/25/19 08/25/19 08/25/19 05:43 05:55 05:55 WBC RBC 2.78 L Hgb 7.2 L Hct 23.4 L MCH MCHC 30.6 L RDW 17.5 H Plt Count Lymphocytes # (Manual) Sodium 135 L BUN 64 H Creatinine 1.99 H Glucose 198 H POC Glucose (mg/dL) 210 H Calcium 8.2 L AST 48 H 08/25/19 11:42 WBC RBC Hgb Hct MCH MCHC RDW Plt Count Lymphocytes # (Manual) Sodium BUN Creatinine Glucose POC Glucose (mg/dL) 205 H Calcium AST Assessment and Plan Assessment: * Altered mental status, likely related to toxic metabolic encephalopathy. Patient became altered after she received Dilaudid. Patient has acute on chronic renal insufficiency, which probably resulted in accumulation of the opiates producing narcosis. Patient's other medical conditions including renal failure, anemia, cellulitis, CHF, hypothyroidism, abnormal liver functions are also likely contributing. * Type 2 diabetes * Atrial fibrillation, currently not on anticoagulation. * Hypothyroidism * Cellulitis * Hyperlipidemia Plan: * Patient probably has toxic metabolic encephalopathy. * We will check EEG to rule out any epileptiform activity and evaluate for metabolic encephalopathy. * Carotid Doppler to rule out stenosis. * B12, folate, TSH, ammonia. * Avoid opiates, sedatives and hypnotics. * Patient has atrial fibrillation, but currently not on any anticoagulation. I would suggest starting anticoagulation for stroke prevention unless there are obvious medical contraindications for anticoagulation. * Treatment of various medical conditions as per IM.
[2019-08-25] MEDS ORDERED: VANCOMYCIN 1,750 MG in SODIUM CHLORIDE 0.9% 500 ML 500 ML IVPB ONE (19:00)
[2019-08-25] MEDS ORDERED: VANCOMYCIN 1,250 MG in SODIUM CHLORIDE 0.9% 250 ML IVPB ONE (19:00)
--- NOTE | 2019-08-25 19:41 | US ---
EXAMINATION TYPE: US carotid duplex BILAT DATE OF EXAM: 08/25/2019 COMPARISON: None CLINICAL HISTORY: 73-year-old female Unresponsiveness. TECHNIQUE: Carotid duplex ultrasound examination. Direct Doppler criteria was utilized. FINDINGS: EXAM MEASUREMENTS: RIGHT: Peak Systolic Velocity (PSV) cm/sec ----- Right CCA: 51.1 ----- Right ICA: 72.1 (only proximal is adequately assessed) ----- Right ECA: 154.9 ICA/CCA ratio: 1.4 RIGHT: End Diastole cm/sec ----- Right CCA: 11.0 ----- Right ICA: 13.8 (only proximal is adequately assessed) ----- Right ECA: 3.2 LEFT: Peak Systolic Velocity (PSV) cm/sec ----- Left CCA: 74.3 ----- Left ICA: 83.1 ----- Left ECA: 134.5 ICA/CCA ratio: 1.1 LEFT: End Diastole cm/sec ----- Left CCA: 16.0 ----- Left ICA: 21.5 ----- Left ECA: 6.9 VERTEBRALS (direction of flow): Right Vertebral: Antegrade Left Vertebral: Not visualized Director Of [employer] notes: Limited exam. Patient was unresponsive and unable to move neck into correct positi on for ultrasound exam. Unable to perform PW Doppler on mid and distal right ICA. Left vertebral norma ry not seen. Elevated velocities obtained in right and left ECA. Echogenic plaque is seen in the bilateral carotid bifurcations. IMPRESSION: 1. At least moderate atherosclerotic change at the bilateral bifurcations. The exam is diagnostical ly very limited for the right ICA as only the proximal portion could be assessed. No hemodynamically significant ICA stenosis on the left. 2. Additionally, the left vertebral artery could not be visualized (the patient was unresponsive and unable to correctly position the neck for the exam). Criteria for Assigning % of Stenosis / Diameter reduction (Estimation based on the indirect measurements of the internal carotid artery velocities (ICA PSV). 1. Normal (no stenosis)=ICA PSV < 125 cm/s: ratio < 2.0: ICA EDV<40 cm/s. 2. Less than 50% stenosis=ICA PSV < 125 cm/s: ratio < 2.0: ICA EDV<40 cm/s. 3. 50 to 69% stenosis=ICA PSV of 125 to 230 cm/s: ration 2.0 ? 4.0: ICA EDV 40-100 cm/s. 4. Greater than 70% stenosis to near occlusion= ICA PSV > 230 cm/s: ratio > 4.0: ICA EDV > 100 cm/s. 5. Near occlusion= ICA PSV velocities may be low or undetectable: variable ratio and ICA EDV. 6. Total occlusion=unable to detect flow.
[2019-08-25 20:51] LABS: Glucose,Whole Blood 133 mg/dL (75-99)
[2019-08-25 23:51] LABS: Urine Alcohol Negative (Negative); Urine Barbiturate Negative (Negative); Urine Cocaine Negative (Negative); Urine Methadone Negative (Negative); Urine Opiates Positive (Negative); Urine Phencyclidine Negative (Negative)
[2019-08-26] MEDS: HEPARIN SODIUM,PORCINE 5,000 UNIT/ML 1 ML VIAL SQ SCH ×4 (00:35→20:59)
[2019-08-26] MEDS: SODIUM CHLORIDE 0.9% 1,000 ML IV SCH ×3 (00:36→15:22)
[2019-08-26 06:33] LABS: Glucose,Whole Blood 172 mg/dL (75-99)
[2019-08-26] MEDS: INSULIN ASPART (NovoLOG) 100 UNIT/ML VIAL SQ SCH ×4 (06:47→20:48)
[2019-08-26] MEDS: LEVOTHYROXINE 125 MCG TAB PO SCH (06:48)
[2019-08-26 07:53] LABS: T4, Free (Free Thyroxine) 1.28 ng/dL (0.78-2.19)
--- NOTE | 2019-08-26 08:46 | P.PN ---
Subjective Progress Note Date: 08/26/19 Principal diagnosis: Altered mental status This is a 73-year-old white female with known history of diabetes opiate dependence and history of congestive heart failure. The patient was scheduled to be discharged yesterday but had significant altered mental status. Workup so far is negative. Neurology has been consulted but she has slightly elevated ammonia level. Computed tomography scan had was done which did not show significant change. Appreciate neurology consultation. The patient's morning is much more alert but still very sleepy and groggy. She does respond to her name now Objective - Vital Signs Vital signs: Vital Signs Temp 98.0 F 08/26/19 03:37 Pulse 98 08/26/19 03:37 Resp 17 08/26/19 03:37 BP 155/95 08/26/19 03:37 Pulse Ox 100 08/26/19 03:37 Intake & Output 08/25/19 08/26/19 08/26/19 18:59 06:59 18:59 Intake Total 0 Output Total 1500 1900 Balance -1500 -1900 Weight 82 kg Intake: Oral 0 Output: Urine 1500 1900 Other: Voiding Method Incontinent Indwelling Catheter # Voids 1 - Constitutional General appearance: Present: obese - EENT Eyes: Absent: abnormal pupil - Neck Neck: Absent: lymphadenopathy - Respiratory Respiratory: bilateral: CTA - Cardiovascular Rhythm: regular Heart sounds: normal: S1, S2 Abnormal Heart Sounds: Absent: S3 Gallop - Gastrointestinal General gastrointestinal: Present: soft. Absent: tenderness - Musculoskeletal Musculoskeletal: Present: generalized weakness - Psychiatric Psychiatric: Absent: appropriate affect, intact judgment & insight - Labs CBC & Chem 7: 08/25/19 05:55 08/25/19 05:55 Labs: Abnormal Lab Results - Last 24 Hours (Table) 08/25/19 08/25/19 08/25/19 Range/Units 11:42 14:23 16:51 POC Glucose (mg/dL) 205 H 141 H (75-99) mg/dL TSH (0.465-4.680) mIU/L Urine Opiates Screen Positive H (Negative) ng/mL 08/25/19 08/26/19 08/26/19 Range/Units 20:44 05:48 06:31 POC Glucose (mg/dL) 133 H 172 H (75-99) mg/dL TSH 5.540 H (0.465-4.680) mIU/L Urine Opiates Screen (Negative) ng/mL Assessment and Plan (1) Cellulitis Current Visit: Yes Status: Acute Code(s): L03.90 - CELLULITIS, UNSPECIFIED SNOMED Code(s): 600374022 (2) Anemia of chronic disease Current Visit: No Status: Acute Code(s): D63.8 - ANEMIA IN OTHER CHRONIC DISEASES CLASSIFIED ELSEWHERE SNOMED Code(s): 432697220 (3) Back pain Current Visit: No Status: Acute Code(s): M54.9 - DORSALGIA, UNSPECIFIED SNOMED Code(s): 378158929 (4) Leg pain Current Visit: No Status: Acute Code(s): M79.606 - PAIN IN LEG, UNSPECIFIED SNOMED Code(s): 72057251 (5) Low back pain Current Visit: No Status: Acute Code(s): M54.5 - LOW BACK PAIN SNOMED Code(s): 329902708 (6) Spinal stenosis, lumbar Current Visit: No Status: Acute Code(s): M48.06 - SPINAL STENOSIS, LUMBAR REGION * DO NOT USE * SNOMED Code(s): 83293468 (7) Weakness Current Visit: No Status: Acute Code(s): R53.1 - WEAKNESS SNOMED Code(s): 33996374 Plan: Altered mental status is improving. With obtundation slightly resolving. Again, appreciate neurology consultation. Cellulitis is stabilizing. Anemia of chronic disease-we will check CBC and CMP in a.m. Continue to follow Time with Patient: Greater than 30
[2019-08-26] MEDS: BACLOFEN 10 MG TAB PO SCH ×3 (09:12→20:59)
[2019-08-26] MEDS: ATORVASTATIN 80 MG TAB PO SCH (09:12)
[2019-08-26] MEDS: BUMETANIDE 1 MG TAB PO SCH ×2 (09:12→15:22)
[2019-08-26] MEDS: GABAPENTIN 300 MG CAP PO SCH ×3 (09:12→20:59)
[2019-08-26] MEDS: ISOSORBIDE MONONITRATE ER 30 MG TAB.ER.24H PO SCH (09:12)
[2019-08-26] MEDS: PANTOPRAZOLE 40 MG TABLET PO SCH ×2 (09:12→20:59)
[2019-08-26] MEDS: LOSARTAN 50 MG TAB PO SCH (09:13)
[2019-08-26] MEDS: METOPROLOL TARTRATE 25 MG TAB PO SCH ×2 (09:13→20:59)
[2019-08-26] MEDS: ASPIRIN 81 MG PO SCH (09:17)
[2019-08-26 11:33] LABS: Folate, Serum 12.1 ng/mL
[2019-08-26 12:15] LABS: Glucose,Whole Blood 142 mg/dL (75-99)
--- NOTE | 2019-08-26 14:46 | P.PN ---
Subjective Progress Note Date: 08/26/19 Patient continues to be intermittently lethargic. When I entered the room, patient was sleeping, snoring. When I woke her up, patient opened her eyes, and almost appeared that she was hemianopic on the right side, looking only to the left, and then trying to look up, not able to see me standing on her right side, almost like hemianopia versus cortical blindness. However after encouragement, patient was able to see in all 4 quadrants as well as in the center. Please refer to examination below. Patient continues to be encephalopathic. Objective - Vital Signs Vital signs: Vital Signs Temp 98.6 F 08/26/19 11:18 Pulse 70 08/26/19 11:18 Resp 20 08/26/19 11:18 BP 95/42 08/26/19 11:18 Pulse Ox 93 L 08/26/19 11:18 Intake & Output 08/25/19 08/26/19 08/26/19 18:59 06:59 18:59 Intake Total 0 Output Total 1500 1900 Balance -1500 -1900 Weight 82 kg Intake: Oral 0 Output: Urine 1500 1900 Other: Voiding Method Incontinent Indwelling Catheter Indwelling Catheter # Voids 1 - Exam Patient after woken up appeared to be hemianopic on the right side. However on repeated testing, patient was able to see in all 4 quadrants, no neglect on double simultaneous stimulation. Patient was able to count one finger, 2 finger, and then 5 fingers without mistake. Able to make eye contact. Speech is clear with no aphasia or dysarthria. It is November or October. She knows that she is in [place]. She perseverates on November and October. Pupils are round and reacting. Visual wallis as above. Face is symmetric. Muscle strength is a fforded drift and the strength is normal in arms and legs. Patient continues to have some very significant myoclonic jerking of her arms when outstretched in front. - Labs CBC & Chem 7: 08/27/19 05:47 08/27/19 05:47 Labs: Abnormal Lab Results - Last 24 Hours (Table) 08/25/19 08/25/19 08/25/19 Range/Units 14:23 16:51 20:44 POC Glucose (mg/dL) 141 H 133 H (75-99) mg/dL TSH (0.465-4.680) mIU/L Urine Opiates Screen Positive H (Negative) ng/mL 08/26/19 08/26/19 08/26/19 Range/Units 05:48 06:31 11:46 POC Glucose (mg/dL) 172 H 142 H (75-99) mg/dL TSH 5.540 H (0.465-4.680) mIU/L Urine Opiates Screen (Negative) ng/mL Assessment and Plan Assessment: * Altered mental status, likely related to toxic metabolic encephalopathy. Patient's various medical conditions including renal failure, anemia, cellulitis, CHF, hypothyroidism, abnormal liver functions and medications are likely contributing. * Type 2 diabetes * Atrial fibrillation, currently not on anticoagulation. * Hypothyroidism * Cellulitis * Hyperlipidemia Plan: * Patient probably has toxic metabolic encephalopathy. * We will review EEG. * Carotid Doppler revealed at least moderate atherosclerotic changes in bilateral carotid bifurcations. Exam is diagnostically very limited for the right ICA. No hemodynamically significant of the left. The left vertebral artery could not be visualized due to technical reasons. * B12 316, folate 12.1, TSH 5.54 mildly elevated, free T4 1 0.28 normal., ammonia <9. * Avoid opiates, sedatives and hypnotics. * Patient has atrial fibrillation, but currently not on any anticoagulation. I would suggest starting anticoagulation for stroke prevention unless there are obvious medical contraindications for anticoagulation. * Treatment of various medical conditions as per IM.
[2019-08-26 17:00] LABS: Glucose,Whole Blood 141 mg/dL (75-99)
--- NOTE | 2019-08-26 17:55 | EEG ---
ELECTROENCEPHALOGRAM REPORT DATE OF SERVICE: 08/26/2019 PREAMBLE: This is a 73-year-old female with unresponsiveness and altered mental status. EEG FINDINGS: This is a 21-channel portable EEG recorded utilizing bipolar and referential montages. The recording starts and continues with presence of diffuse moderate amplitude, mixed delta and theta activity seen in bihemispheric region. A lot of myogenic artifact was also seen during most of the study. Photic driving response was not seen. Different stages of sleep were not seen. No focal or generalized epileptiform activity was seen. IMPRESSION: This is an abnormal EEG due to background slowing of at least a moderate degree. This is suggestive of generalized cerebral dysfunction, as can be seen with toxic metabolic encephalopathies or due to diffuse structural brain abnormalities. No epileptiform activity was seen. MMODL / IJN: [id number] /
[2019-08-26 21:04] LABS: Glucose,Whole Blood 130 mg/dL (75-99)
[2019-08-27] MEDS: SODIUM CHLORIDE 0.9% 1,000 ML IV SCH ×3 (03:01→21:35)
[2019-08-27 06:20] LABS: Anisocytosis Slight; HCT 24.8 % (34.0-46.0); HGB 7.4 gm/dL (11.4-16.0); Hypochromasia Marked; MCH 24.9 pg (25.0-35.0); MCHC 29.8 g/dL (31.0-37.0); MCV 83.6 fL (80.0-100.0); Mean Platelet Volume 9.1; Platelet Count 184 k/uL (150-450); Poikilocytosis Moderate; RBC 2.97 m/uL (3.80-5.40); WBC 5.4 k/uL (3.8-10.6)
[2019-08-27 06:31] LABS: Potassium 3.7 mmol/L (3.5-5.1); Total Protein 6.9 g/dL (6.3-8.2)
[2019-08-27 06:32] LABS: Glucose,Whole Blood 179 mg/dL (75-99)
[2019-08-27 06:36] LABS: Vancomycin,Random 19.2 ug/mL
[2019-08-27] MEDS: LEVOTHYROXINE 125 MCG TAB PO SCH (07:55)
[2019-08-27] MEDS: ISOSORBIDE MONONITRATE ER 30 MG TAB.ER.24H PO SCH (07:55)
[2019-08-27] MEDS: ATORVASTATIN 80 MG TAB PO SCH (07:55)
[2019-08-27] MEDS: PANTOPRAZOLE 40 MG TABLET PO SCH ×2 (07:55→21:35)
[2019-08-27] MEDS: METOPROLOL TARTRATE 25 MG TAB PO SCH (07:55)
[2019-08-27] MEDS: ASPIRIN 81 MG PO SCH (07:55)
[2019-08-27] MEDS: HEPARIN SODIUM,PORCINE 5,000 UNIT/ML 1 ML VIAL SQ SCH ×3 (07:56→21:37)
[2019-08-27] MEDS: INSULIN ASPART (NovoLOG) 100 UNIT/ML VIAL SQ SCH ×4 (07:56→21:36)
[2019-08-27] MEDS: BACLOFEN 10 MG TAB PO SCH (07:56)
[2019-08-27] MEDS: BUMETANIDE 1 MG TAB PO SCH ×2 (07:56→15:54)
[2019-08-27] MEDS: LOSARTAN 50 MG TAB PO SCH (07:56)
--- NOTE | 2019-08-27 08:50 | P.PN ---
Subjective Principal diagnosis: Altered mental status. The patient has an element of toxic metabolic encephalopathy. This is a 73-year-old white female with known history of diabetes opiate dependence and history of congestive heart failure. The patient was scheduled to be discharged yesterday but had significant altered mental status. Workup so far is negative. Neurology has been consulted but she has slightly elevated ammonia level. Computed tomography scan had was done which did not show significant change. Appreciate neurology consultation. The patient's morning is much more alert but still very sleepy and groggy. She responds to her name but does not follow commands. Objective - Vital Signs Vital signs: Vital Signs Temp 99.5 F 08/27/19 08:00 Pulse 144 H 08/27/19 08:00 Resp 20 08/27/19 08:00 BP 154/67 08/27/19 08:00 Pulse Ox 94 L 08/27/19 08:00 Intake & Output 08/26/19 08/27/19 08/27/19 18:59 06:59 18:59 Intake Total 100 Output Total 1300 1200 Balance -1300 -1200 100 Weight 84.5 kg Intake: Oral 100 Output: Urine 1300 1200 Other: Voiding Method Indwelling Catheter Indwelling Catheter # Voids 0 # Bowel Movements 0 - Constitutional General appearance: Present: obese - EENT Eyes: Absent: abnormal pupil - Neck Neck: Absent: lymphadenopathy - Respiratory Respiratory: bilateral: CTA - Cardiovascular Rhythm: regularly irregular Heart sounds: normal: S1, S2 Abnormal Heart Sounds: Absent: S3 Gallop - Gastrointestinal General gastrointestinal: Present: soft. Absent: tenderness - Psychiatric Psychiatric: Absent: A&O x's 3, appropriate affect, intact judgment & insight - Labs CBC & Chem 7: 08/27/19 05:47 08/27/19 05:47 Labs: Abnormal Lab Results - Last 24 Hours (Table) 08/26/19 08/26/19 08/26/19 Range/Units 11:46 16:55 20:43 RBC (3.80-5.40) m/uL Hgb (11.4-16.0) gm/dL Hct (34.0-46.0) % MCH (25.0-35.0) pg MCHC (31.0-37.0) g/dL RDW (11.5-15.5) % Chloride (98-107) mmol/L BUN (7-17) mg/dL Creatinine (0.52-1.04) mg/dL Glucose (74-99) mg/dL POC Glucose (mg/dL) 142 H 141 H 130 H (75-99) mg/dL AST (14-36) U/L 08/27/19 08/27/19 08/27/19 Range/Units 05:47 05:47 06:07 RBC 2.97 L (3.80-5.40) m/uL Hgb 7.4 L (11.4-16.0) gm/dL Hct 24.8 L (34.0-46.0) % MCH 24.9 L (25.0-35.0) pg MCHC 29.8 L (31.0-37.0) g/dL RDW 18.0 H (11.5-15.5) % Chloride 109 H (98-107) mmol/L BUN 42 H (7-17) mg/dL Creatinine 1.34 H (0.52-1.04) mg/dL Glucose 165 H (74-99) mg/dL POC Glucose (mg/dL) 179 H (75-99) mg/dL AST 58 H (14-36) U/L Assessment and Plan (1) Cellulitis Current Visit: Yes Status: Acute Code(s): L03.90 - CELLULITIS, UNSPECIFIED SNOMED Code(s): 219116419 (2) Anemia of chronic disease Current Visit: No Status: Acute Code(s): D63.8 - ANEMIA IN OTHER CHRONIC DISEASES CLASSIFIED ELSEWHERE SNOMED Code(s): 274034248 (3) Back pain Current Visit: No Status: Acute Code(s): M54.9 - DORSALGIA, UNSPECIFIED SNOMED Code(s): 762179558 (4) Leg pain Current Visit: No Status: Acute Code(s): M79.606 - PAIN IN LEG, UNSPECIFIED SNOMED Code(s): 97279594 (5) Low back pain Current Visit: No Status: Acute Code(s): M54.5 - LOW BACK PAIN SNOMED Code(s): 715840073 (6) Spinal stenosis, lumbar Current Visit: No Status: Acute Code(s): M48.06 - SPINAL STENOSIS, LUMBAR REGION * DO NOT USE * SNOMED Code(s): 77000540 (7) Weakness Current Visit: No Status: Acute Code(s): R53.1 - WEAKNESS SNOMED Code(s): 31534564 Plan: Altered mental status is improving. With obtundation slightly resolving. Again, appreciate neurology consultation. Cellulitis is stabilizing. Anemia of chronic disease-we will check CBC and CMP in a.m. Atrial fibrillation is now noted. We will increase her metoprolol. I am concerned because of her continued grogginess. Dr. Ma's group Route covering for the weekend. Time with Patient: Greater than 30
[2019-08-27] MEDS ORDERED: METOPROLOL TARTRATE 25 MG TAB PO ONE (09:00)
[2019-08-27] MEDS ORDERED: VANCOMYCIN 1,500 MG in SODIUM CHLORIDE 0.9% 250 ML IVPB ONE (09:00)
[2019-08-27 12:08] LABS: Glucose,Whole Blood 229 mg/dL (75-99)
--- NOTE | 2019-08-27 14:47 | P.PN ---
Subjective Progress Note Date: 08/27/19 Patient continues to be intermittently lethargic, encephalopathic. No seizures or any focal symptoms reported. Objective - Vital Signs Vital signs: Vital Signs Temp 99 F 08/27/19 11:42 Pulse 110 H 08/27/19 11:42 Resp 20 08/27/19 11:42 BP 159/67 08/27/19 11:42 Pulse Ox 94 L 08/27/19 11:42 Intake & Output 08/26/19 08/27/19 08/27/19 18:59 06:59 18:59 Intake Total 100 Output Total 1300 1200 Balance -1300 -1200 100 Weight 84.5 kg Intake: Oral 100 Output: Urine 1300 1200 Other: Voiding Method Indwelling Catheter Indwelling Catheter Indwelling Catheter # Voids 0 # Bowel Movements 0 - Exam Patient encephalopathic. Very lethargic. Examination deferred. - Labs CBC & Chem 7: 08/27/19 05:47 08/27/19 05:47 Labs: Abnormal Lab Results - Last 24 Hours (Table) 08/26/19 08/26/19 08/27/19 Range/Units 16:55 20:43 05:47 RBC (3.80-5.40) m/uL Hgb (11.4-16.0) gm/dL Hct (34.0-46.0) % MCH (25.0-35.0) pg MCHC (31.0-37.0) g/dL RDW (11.5-15.5) % Chloride 109 H (98-107) mmol/L BUN 42 H (7-17) mg/dL Creatinine 1.34 H (0.52-1.04) mg/dL Glucose 165 H (74-99) mg/dL POC Glucose (mg/dL) 141 H 130 H (75-99) mg/dL AST 58 H (14-36) U/L 08/27/19 08/27/19 08/27/19 Range/Units 05:47 06:07 12:03 RBC 2.97 L (3.80-5.40) m/uL Hgb 7.4 L (11.4-16.0) gm/dL Hct 24.8 L (34.0-46.0) % MCH 24.9 L (25.0-35.0) pg MCHC 29.8 L (31.0-37.0) g/dL RDW 18.0 H (11.5-15.5) % Chloride (98-107) mmol/L BUN (7-17) mg/dL Creatinine (0.52-1.04) mg/dL Glucose (74-99) mg/dL POC Glucose (mg/dL) 179 H 229 H (75-99) mg/dL AST (14-36) U/L Assessment and Plan Assessment: * Altered mental status, likely related to toxic metabolic encephalopathy. Patient's various medical conditions including renal failure, anemia, cellulitis, CHF, hypothyroidism, abnormal liver functions and medications (gabapentin/opiates) are likely contributing. * Acute on chronic renal insufficiency. * Type 2 diabetes * Atrial fibrillation, currently not on anticoagulation. * Pacemaker. * Hypothyroidism * Cellulitis * Hyperlipidemia Plan: * Patient probably has toxic metabolic encephalopathy. Patient's renal functions as much improved. Her BUN is down from 64-42, and creatinine down from 1.99-1.34. Gabapentin has been discontinued. We will check gabapentin level. Hopefully her mentation will improve in a day or 2. * EEG was abnormal due to background slowing of at least moderate degree. This is suggestive generalized cerebral dysfunction as can be seen in toxic metabolic encephalopathies or due to diffuse structural brain abnormality. No epileptiform activity was seen.. * Carotid Doppler revealed at least moderate atherosclerotic changes in bilateral carotid bifurcations. Exam is diagnostically very limited for the right ICA. No hemodynamically significant of the left. The left vertebral artery could not be visualized due to technical reasons. * MRI of brain and MRA of head were ordered, but unfortunately cannot be done due to presence of pacemaker. * B12 316, folate 12.1, TSH 5.54 mildly elevated, free T4 1 0.28 normal., ammonia <9. * Avoid opiates, sedatives and hypnotics. * Patient has atrial fibrillation, but currently not on any anticoagulation. I spoke to patient's sister Miss Cassidy on the phone. She informed me that patient had history of atrial fibrillation for which she was on Coumadin. She underwent cardiac ablation and pacemaker placement 1-2 to 2 years ago, and after that Coumadin was discontinued. She is not on anticoagulants at this time. I would leave it up to her PCP and airplane navigator, if any need for anticoagulation. Discussed with patient's sister in detail. * Treatment of various medical conditions as per IM. * Neurology service not available on the weekend.
[2019-08-27 17:00] LABS: Glucose,Whole Blood 198 mg/dL (75-99)
[2019-08-27 20:29] LABS: Glucose,Whole Blood 186 mg/dL (75-99)
[2019-08-27] MEDS: METOPROLOL TARTRATE 50 MG TAB PO SCH (21:34)
[2019-08-28] MEDS: SODIUM CHLORIDE 0.9% 1,000 ML IV SCH ×2 (03:19→16:47)
[2019-08-28 06:17] LABS: Glucose,Whole Blood 168 mg/dL (75-99)
[2019-08-28] MEDS: LEVOTHYROXINE 125 MCG TAB PO SCH (06:25)
[2019-08-28] MEDS: INSULIN ASPART (NovoLOG) 100 UNIT/ML VIAL SQ SCH ×4 (06:27→22:28)
[2019-08-28 07:33] LABS: Anisocytosis Slight; HCT 26.4 % (34.0-46.0); HGB 7.6 gm/dL (11.4-16.0); Hypochromasia Marked; MCH 24.2 pg (25.0-35.0); MCHC 28.8 g/dL (31.0-37.0); MCV 84.1 fL (80.0-100.0); Mean Platelet Volume 9.3; Platelet Count 215 k/uL (150-450); Poikilocytosis Moderate; RBC 3.14 m/uL (3.80-5.40); RDW 18.3 % (11.5-15.5); WBC 8.9 k/uL (3.8-10.6)
[2019-08-28 07:45] LABS: Albumin 3.6 g/dL (3.5-5.0); Calcium 8.9 mg/dL (8.4-10.2); Potassium 3.7 mmol/L (3.5-5.1); Total Protein 6.6 g/dL (6.3-8.2)
[2019-08-28 08:18] LABS: Vancomycin,Random 21.4 ug/mL
[2019-08-28] MEDS: HEPARIN SODIUM,PORCINE 5,000 UNIT/ML 1 ML VIAL SQ SCH ×2 (09:35→15:13)
[2019-08-28] MEDS ORDERED: VANCOMYCIN 1,250 MG in SODIUM CHLORIDE 0.9% 250 ML IVPB SCH (11:00)
[2019-08-28 11:32] LABS: Glucose,Whole Blood 128 mg/dL (75-99)
--- NOTE | 2019-08-28 12:50 | CT ---
EXAMINATION TYPE: CT brain wo con DATE OF EXAM: 08/28/2019 COMPARISON: Previous study dated 08/25/2019 HISTORY: Altered mental status CT DLP: 1107.4 mGycm Automated exposure control for dose reduction was used. FINDINGS: There are generalized changes of sulcal prominence and ventriculomegaly, compatible with atrophic lori nge. There is mild, diffuse periventricular white matter lucency, compatible mild, chronic [place] er ischemic change. There is no acute focal lesion, mass effect or midline shift identified. I do not see evidence of intracranial blood. There is calcification of the vertebral and carotid arteries. Visualized portions of the paranasal sinuses and mastoids are clear. The right-sided mastoids are und er aerated and I suspect there may have been a previous mastoidectomy. The bony calvarium is intact. IMPRESSION: 1. NO ACUTE INTRACRANIAL ABNORMALITY. 2. MILD DEGENERATIVE CHANGE.
--- NOTE | 2019-08-28 13:46 | XR ---
EXAMINATION TYPE: XR chest 1V portable DATE OF EXAM: 08/28/2019 HISTORY: CHF. REFERENCE: Previous study dated 08/23/2019. FINDINGS: There has been a midline sternotomy. There is a bipolar pacemaker place on the right. The heart is enlarged. There is vascular congestion and alveolar airspace disease. This is most consi stent with pulmonary edema. I cannot exclude small, bilateral effusions. The overall appearance may h ave worsened slightly. IMPRESSION: SLIGHT WORSENING IN THE APPEARANCE OF THE PATIENT'S CONGESTIVE HEART FAILURE.
[2019-08-28] MEDS: METOPROLOL TARTRATE 5 MG/5 ML VIAL IVP SCH ×2 (14:42→15:12)
[2019-08-28] MEDS ORDERED: [UNRECOGNIZED DRUG - REMARK] IV SCH ×4 (15:00)
[2019-08-28] MEDS: PIPERACILLIN-TAZOBACTAM 3.375 GM in SODIUM CHLORIDE 0.9% 100 ML IVPB SCH (15:13)
--- NOTE | 2019-08-28 15:50 | PN ---
PROGRESS NOTE I am covering for Dr. Hdz. DATE OF SERVICE: 08/28/2019 This 73-year-old woman was admitted with cellulitis, was scheduled to be discharged yesterday, but however the patient had some change in mental status. The patient also had slightly elevated ammonia level. CT scan did not show acute abnormality. Patient was apparently given some Dilaudid the night before and the patient is being closely monitored and still even now the patient is stuporous, barely communicating at this time. Patient also had multiple lab abnormalities including hypernatremia, anemia and as well as renal failure which is slightly increasing and bilirubin is also slightly elevated with AST 155 and ALT of 73. PAST MEDICAL HISTORY: Reviewed REVIEW OF SYSTEMS: Could not be taken. The patient is stuporous. MEDICATIONS: Current medications are reviewed, include: 1. Aspirin 81 mg daily. 2. Lipitor 80 mg daily. 3. Bumex 2 mg p.o. b.i.d. 4. Heparin subcu q.8. 5. NovoLog scale. 6. Imdur 30 mg daily. 7. Synthroid 125 mcg p.o. daily. 8. Cozaar 50 mg daily. 9. Lopressor 5 mg q.8 p.r.n. 10.Narcan. 11.Protonix. 12.Silvadene cream. 13.Vancomycin. PHYSICAL EXAMINATION: Patient is stuporous, arousable , drowsy, confused. Pulse is 112 regular, blood pressure 166/91, respiration 20, temperature 98.5, pulse ox 95% on room air. HEENT: Conjunctivae normal. Oral mucosa moist. NECK: No jugular venous distention. CARDIOVASCULAR: S1, S2 muffled. Tachycardia. RESPIRATION: Breath sounds diminished at the bases. A few scattered rhonchi. ABDOMEN: Soft, nontender. LEGS: No edema. No swelling. NERVOUS SYSTEM: Diffusely weak. LABS: WBC 8.9, hemoglobin 7.6, sodium 147, potassium 3.7. Glucose noted. ASSESSMENT: 1. Acute leg cellulitis, present on admission. 2. Change in mental status, possible acute metabolic encephalopathy, rule out stroke. 3. Possible aspiration pneumonia on the right. 4. Hypernatremia. 5. Renal failure acute on chronic kidney disease, which is slightly improving. 6. Hyperbilirubinemia. 7. History of back pain. 8. History of leg pain. 9. History of spinal stenosis lumbar. 10.History of weakness. 11.History atrial fibrillation. 12.History of congestive heart failure. 13.History of deep vein thrombosis. 14.Hypertension. 15.Hyperlipidemia. 16.Peripheral neuropathy. 17.History of lupus. 18.History of coronary artery disease, coronary artery bypass grafting. RECOMMENDATIONS AND DISCUSSION: This 73-year-old woman who presented with multiple complex medical issues, we will monitor the patient closely. Continue the current medications and continues symptomatic treatment. I ordered repeat CT of the brain as well as a chest x-ray also. CT of the brain did not show any acute abnormality, ruling out the possibility of major cerebral stroke. Otherwise a chest x-ray was reviewed which did show some worsening and possible pneumonia also. I would also recommend broad-spectrum IV antibiotics and course of bronchodilators and continue to monitor. The prognosis guarded because of multiple complex medical issues. Further recommendations to follow. Will stop the vancomycin at this time because of the slight worsening of the kidney failure and cut down the IV fluids as well and hopefully change the IV fluids to D5 water and monitor the blood sugars as well. Prognosis guarded. Further recommendations to follow. MMODL / IJN: [id number] / MTDD
[2019-08-28 16:36] LABS: Glucose,Whole Blood 158 mg/dL (75-99)
[2019-08-28] MEDS: DEXTROSE 5% IN WATER 1,000 ML with MVI, ADULT NO.4 WITH VIT K 10 ML, THIAMINE 100 MG, F... IV SCH ×4 (16:46)
[2019-08-28] MEDS: ATORVASTATIN 80 MG TAB PO SCH (16:47)
[2019-08-28] MEDS: BUMETANIDE 1 MG TAB PO SCH ×2 (16:47→16:48)
[2019-08-28] MEDS: LOSARTAN 50 MG TAB PO SCH (16:47)
[2019-08-28] MEDS: ISOSORBIDE MONONITRATE ER 30 MG TAB.ER.24H PO SCH (16:47)
[2019-08-28] MEDS: ASPIRIN 81 MG PO SCH (16:47)
[2019-08-28] MEDS: PANTOPRAZOLE 40 MG/10 ML VIAL IVP SCH (17:28)
[2019-08-28 20:37] LABS: Glucose,Whole Blood 173 mg/dL (75-99)
[2019-08-29] MEDS: PIPERACILLIN-TAZOBACTAM 3.375 GM in SODIUM CHLORIDE 0.9% 100 ML IVPB SCH ×4 (00:10→22:45)
[2019-08-29] MEDS: HEPARIN SODIUM,PORCINE 5,000 UNIT/ML 1 ML VIAL SQ SCH ×4 (00:11→22:44)
[2019-08-29] MEDS: LEVOTHYROXINE 125 MCG TAB PO SCH (05:43)
[2019-08-29 05:57] LABS: Glucose,Whole Blood 195 mg/dL (75-99)
[2019-08-29] MEDS: INSULIN ASPART (NovoLOG) 100 UNIT/ML VIAL SQ SCH ×4 (06:13→20:44)
[2019-08-29 06:45] LABS: Anisocytosis Slight; Basophils % (A) 0 %; Eosinophils % (A) 0 %; HCT 24.7 % (34.0-46.0); HGB 7.3 gm/dL (11.4-16.0); Hypochromasia Marked; Lymphocytes # (A) 0.9 k/uL (1.0-4.8); Lymphocytes % (A) 9 %; MCH 24.4 pg (25.0-35.0); MCHC 29.5 g/dL (31.0-37.0); Mean Platelet Volume 10.2; Monocytes # (A) 0.5 k/uL (0-1.0); Monocytes % (A) 5 %; Neutrophils % (A) 84 %; Platelet Count 160 k/uL (150-450); Poikilocytosis Moderate; RBC 2.98 m/uL (3.80-5.40); RDW 18.6 % (11.5-15.5); WBC 10.7 k/uL (3.8-10.6)
[2019-08-29 07:01] LABS: Albumin 3.3 g/dL (3.5-5.0); Calcium 8.9 mg/dL (8.4-10.2); Potassium 3.1 mmol/L (3.5-5.1); Total Bilirubin 3.2 mg/dL (0.2-1.3); Total Protein 6.3 g/dL (6.3-8.2)
[2019-08-29] MEDS: ISOSORBIDE MONONITRATE ER 30 MG TAB.ER.24H PO SCH (09:08)
[2019-08-29] MEDS: ATORVASTATIN 80 MG TAB PO SCH (09:08)
[2019-08-29] MEDS: LOSARTAN 50 MG TAB PO SCH (09:08)
[2019-08-29] MEDS: BUMETANIDE 1 MG TAB PO SCH ×2 (09:08→15:26)
[2019-08-29] MEDS: ASPIRIN 81 MG PO SCH (09:08)
[2019-08-29] MEDS: PANTOPRAZOLE 40 MG/10 ML VIAL IVP SCH (09:08)
[2019-08-29] MEDS: METOPROLOL TARTRATE 5 MG/5 ML VIAL IVP SCH ×3 (09:10→22:44)
[2019-08-29 11:41] LABS: Glucose,Whole Blood 196 mg/dL (75-99)
[2019-08-29] MEDS ORDERED: Potassium Replacement Protocol 1 EACH MISC MISCELLANE PRN ×2 (11:55→12:56)
[2019-08-29] MEDS: DEXTROSE 5% IN WATER 1,000 ML with MVI, ADULT NO.4 WITH VIT K 10 ML, THIAMINE 100 MG, F... IV SCH ×4 (12:36)
[2019-08-29] MEDS: POTASSIUM CHLORIDE ER 20 MEQ TAB.ER PO SCH ×2 (15:23→16:57)
[2019-08-29 17:11] LABS: Glucose,Whole Blood 230 mg/dL (75-99)
--- NOTE | 2019-08-29 18:38 | PN ---
PROGRESS NOTE DATE OF SERVICE: 08/29/2019 I am covering for Dr. Hdz. This 73-year-old woman was admitted with cellulitis, was unresponsive yesterday. The possibility of stroke was considered but repeat CT scan also did not show any acute abnormality. The patient thought to have aspiration pneumonia and started on broad spectrum IV antibiotics. Today's chest x-ray and CT scan were reviewed personally by me and showed some slight worsening of chest x-ray. Otherwise, patient being closely monitored. The patient also had interestingly elevated LFTs indicating acute hepatitis. AST has gone to 406 with bilirubin is 3.2, alkaline phosphatase is 91. Potassium 3.1. Sodium is 148, creatinine is 1.5. PAST MEDICAL HISTORY: Reviewed. REVIEW OF SYSTEMS: Cardiovascular system: No angina or palpitations. RESPIRATORY: As mentioned earlier. GI no nausea or vomiting. no dysuria. Nervous System: As mentioned earlier. CURRENT MEDICATIONS: Reviewed and include: 1. Aspirin 81 mg. 2. Bumex 2 mg p.o. b.i.d. 3. Heparin 5000 mg subcu q.8h. 4. NovoLog scale. 5. Imdur 30 mg p.o. daily. 6. Synthroid 125 mcg p.o. daily. 7. Cozaar 50 mg p.o. daily. 8. Lopressor 5 mg IV q.8h. 9. Narcan 0.2 p.r.n. 10.Zofran. 11.Zosyn 3.5 IV q.8. PHYSICAL EXAMINATION: Patient is alert, oriented x2. Pulse is 102. Blood pressure 135/60, respirations 16, temperature 98.4, pulse ox 97% on room air. HEENT: Conjunctivae mild icterus. NECK is no jugular venous distention. No carotid bruit. No lymph node enlargement. Cardiovascular: S1-S2 muffled. Respiration: Breath sounds diminished in the bases. A few scattered rhonchi. ABDOMEN: Soft, obese, nontender. No mass palpable. LEGS are no edema. No swelling. CENTRAL NERVOUS SYSTEM: No focal deficits. LABS: WBC 10.7, hemoglobin 7.2, sodium 140, potassium 3.1. ASSESSMENT: 1. Acute left leg cellulitis present on admission. 2. Change in mental status possible acute metabolic encephalopathy, stroke ruled out. 3. Possible acute hepatitis and hyperbilirubinemia. 4. Aspiration pneumonia, right. 5. Hypernatremia. 6. Renal failure acute on chronic kidney disease, slightly improving. 7. Hyperbilirubinemia. 8. History of back pain. 9. History of leg pain. 10.History of spinal stenosis lumbar. 11.History of weakness. 12.History of atrial fibrillation, paroxysmal. 13.History of congestive heart failure. 14.History of deep vein thrombosis. 15.History of hypertension. 16.History of hyperlipidemia. 17.History of peripheral neuropathy. 18.History of lupus. 19.Coronary artery disease, coronary artery bypass grafting. RECOMMENDATIONS AND DISCUSSION: I would recommend continue the current medications, management and symptomatic treatment. Potassium supplementation. Repeat labs. AST, ALT are significantly elevated. I would also recommend ultrasound abdomen of the liver also. Otherwise, closely follow with Neurology. Prognosis guarded. Continue the antibiotics. The p.o. medication may be initiated once the patient's sensorium significantly improves. Further recommendations to follow. Dr. Hdz will follow tomorrow. MMBAYLEEL / TAMARN: [id number] /
[2019-08-29 20:48] LABS: Glucose,Whole Blood 233 mg/dL (75-99)
[2019-08-29] MEDS: METOPROLOL TARTRATE 50 MG TAB PO SCH (21:02)
[2019-08-29] MEDS: PANTOPRAZOLE 40 MG TABLET PO SCH (21:03)
[2019-08-30 05:47] LABS: Glucose,Whole Blood 240 mg/dL (75-99)
[2019-08-30] MEDS: INSULIN ASPART (NovoLOG) 100 UNIT/ML VIAL SQ SCH ×4 (06:07→20:15)
[2019-08-30] MEDS: LEVOTHYROXINE 125 MCG TAB PO SCH (06:07)
[2019-08-30 06:09] LABS: Anisocytosis Slight; Basophils % (A) 0 %; Eosinophils # (A) 0.2 k/uL (0-0.7); Eosinophils % (A) 2 %; HCT 24.8 % (34.0-46.0); HGB 7.5 gm/dL (11.4-16.0); Hypochromasia Marked; Lymphocytes # (A) 0.7 k/uL (1.0-4.8); Lymphocytes % (A) 9 %; MCH 24.9 pg (25.0-35.0); Mean Platelet Volume 10.3; Monocytes # (A) 0.3 k/uL (0-1.0); Monocytes % (A) 3 %; Neutrophils # (A) 7.2 k/uL (1.3-7.7); Neutrophils % (A) 85 %; Platelet Count 150 k/uL (150-450); Poikilocytosis Moderate; RBC 2.99 m/uL (3.80-5.40); WBC 8.5 k/uL (3.8-10.6)
[2019-08-30 06:18] LABS: Albumin 3.1 g/dL (3.5-5.0); Calcium 7.8 mg/dL (8.4-10.2); Total Bilirubin 2.8 mg/dL (0.2-1.3); Total Protein 6.1 g/dL (6.3-8.2)
[2019-08-30 06:56] LABS: Potassium 2.5 mmol/L (3.5-5.1)
[2019-08-30] MEDS: POTASSIUM CHLORIDE ER 20 MEQ TAB.ER PO SCH ×3 (07:06→10:11)
--- NOTE | 2019-08-30 08:11 | P.PN ---
Subjective Principal diagnosis: Altered mental status. The patient has an element of toxic metabolic encephalopathy. This is a 73-year-old white female with known history of diabetes opiate dependence and history of congestive heart failure. The patient was scheduled to be discharged yesterday but had significant altered mental status. Workup so far is negative. Neurology has been consulted but she has slightly elevated ammonia level. Computed tomography scan had was done which did not show significant change. Appreciate neurology consultation. The patient is otherwise lucid. Objective - Vital Signs Vital signs: Vital Signs Temp 98.5 F 08/30/19 03:55 Pulse 115 H 08/30/19 03:55 Resp 18 08/30/19 03:55 BP 145/74 08/30/19 03:55 Pulse Ox 96 08/30/19 03:55 Intake & Output 08/29/19 08/30/19 08/30/19 18:59 06:59 18:59 Intake Total 720 Output Total 2300 3100 Balance -1580 -3100 Weight 86.5 kg Intake: Oral 720 Output: Urine 2300 3100 Other: Voiding Method Indwelling Catheter Indwelling Catheter # Voids 0 # Bowel Movements 0 0 - Constitutional General appearance: Present: obese - EENT Eyes: Absent: abnormal pupil ENT: Absent: hard of hearing - Neck Neck: Absent: lymphadenopathy - Respiratory Respiratory: bilateral: CTA - Cardiovascular Rhythm: regular Heart sounds: normal: S1, S2 Abnormal Heart Sounds: Absent: S3 Gallop - Gastrointestinal General gastrointestinal: Present: soft. Absent: tenderness - Psychiatric Psychiatric: Present: A&O x's 3, appropriate affect - Labs CBC & Chem 7: 08/30/19 05:46 08/30/19 05:46 Labs: Abnormal Lab Results - Last 24 Hours (Table) 08/29/19 08/29/19 08/29/19 Range/Units 11:39 17:10 20:44 RBC (3.80-5.40) m/uL Hgb (11.4-16.0) gm/dL Hct (34.0-46.0) % MCH (25.0-35.0) pg MCHC (31.0-37.0) g/dL RDW (11.5-15.5) % Lymphocytes # (1.0-4.8) k/uL Potassium (3.5-5.1) mmol/L Chloride (98-107) mmol/L BUN (7-17) mg/dL Creatinine (0.52-1.04) mg/dL Glucose (74-99) mg/dL POC Glucose (mg/dL) 196 H 230 H 233 H (75-99) mg/dL Calcium (8.4-10.2) mg/dL Total Bilirubin (0.2-1.3) mg/dL AST (14-36) U/L ALT (4-34) U/L Total Protein (6.3-8.2) g/dL Albumin (3.5-5.0) g/dL 08/30/19 08/30/19 08/30/19 Range/Units 05:45 05:46 05:46 RBC 2.99 L (3.80-5.40) m/uL Hgb 7.5 L (11.4-16.0) gm/dL Hct 24.8 L (34.0-46.0) % MCH 24.9 L (25.0-35.0) pg MCHC 30.0 L (31.0-37.0) g/dL RDW 18.0 H (11.5-15.5) % Lymphocytes # 0.7 L (1.0-4.8) k/uL Potassium 2.5 L* (3.5-5.1) mmol/L Chloride 110 H (98-107) mmol/L BUN 53 H (7-17) mg/dL Creatinine 1.56 H (0.52-1.04) mg/dL Glucose 214 H (74-99) mg/dL POC Glucose (mg/dL) 240 H (75-99) mg/dL Calcium 7.8 L (8.4-10.2) mg/dL Total Bilirubin 2.8 H (0.2-1.3) mg/dL AST 3028 H (14-36) U/L ALT 2023 H (4-34) U/L Total Protein 6.1 L (6.3-8.2) g/dL Albumin 3.1 L (3.5-5.0) g/dL Microbiology - Last 24 Hours (Table) 08/28/19 14:42 Blood Culture - Preliminary Blood No Growth after 24 hours Assessment and Plan (1) Cellulitis Current Visit: Yes Status: Acute Code(s): L03.90 - CELLULITIS, UNSPECIFIED SNOMED Code(s): 122396545 (2) Anemia of chronic disease Current Visit: No Status: Acute Code(s): D63.8 - ANEMIA IN OTHER CHRONIC DISEASES CLASSIFIED ELSEWHERE SNOMED Code(s): 697963045 (3) Back pain Current Visit: No Status: Acute Code(s): M54.9 - DORSALGIA, UNSPECIFIED SNOMED Code(s): 356718088 (4) Leg pain Current Visit: No Status: Acute Code(s): M79.606 - PAIN IN LEG, UNSPECIFIED SNOMED Code(s): 00433679 (5) Low back pain Current Visit: No Status: Acute Code(s): M54.5 - LOW BACK PAIN SNOMED Code(s): 599193985 (6) Spinal stenosis, lumbar Current Visit: No Status: Acute Code(s): M48.06 - SPINAL STENOSIS, LUMBAR REGION * DO NOT USE * SNOMED Code(s): 79819053 (7) Weakness Current Visit: No Status: Acute Code(s): R53.1 - WEAKNESS SNOMED Code(s): 91840849 Plan: Altered mental status is improving. Again, appreciate neurology consultation. Cellulitis is stabilizing. Anemia of chronic disease-we will check CBC and CMP in a.m. Correct potassium Anticipate transfer to rehab.
[2019-08-30] MEDS: LOSARTAN 50 MG TAB PO SCH (08:17)
[2019-08-30] MEDS: PANTOPRAZOLE 40 MG/10 ML VIAL IVP SCH (08:17)
[2019-08-30] MEDS: METOPROLOL TARTRATE 5 MG/5 ML VIAL IVP SCH ×3 (08:17→23:29)
[2019-08-30] MEDS: HEPARIN SODIUM,PORCINE 5,000 UNIT/ML 1 ML VIAL SQ SCH ×3 (08:17→23:29)
[2019-08-30] MEDS: ISOSORBIDE MONONITRATE ER 30 MG TAB.ER.24H PO SCH (08:17)
[2019-08-30] MEDS: ASPIRIN 81 MG PO SCH (08:17)
[2019-08-30] MEDS: BUMETANIDE 1 MG TAB PO SCH ×2 (08:17→16:07)
[2019-08-30] MEDS: PIPERACILLIN-TAZOBACTAM 3.375 GM in SODIUM CHLORIDE 0.9% 100 ML IVPB SCH ×3 (08:18→23:29)
[2019-08-30] MEDS: DEXTROSE 5% IN WATER 1,000 ML with MVI, ADULT NO.4 WITH VIT K 10 ML, THIAMINE 100 MG, F... IV SCH ×4 (08:20)
[2019-08-30 11:35] LABS: Glucose,Whole Blood 260 mg/dL (75-99)
--- NOTE | 2019-08-30 12:46 | CDI ---
Documentation Clarification Form Date: 08/30/2019 12:36:01 PM From: Jody Forman CCS, CCDS Admit Date: 08/25/2019 02:52:00 PM Patient Name: Tsering Chan I Visit Number: [id number] Discharge Date: ATTENTION: The Clinical Documentation Specialists (CDI) and [facility] Coding Staff appreciate your assistance in clarifying documentation. Please respond to the clarification below the line at the bottom and electronically sign. The CDI & [facility] Coding staff will review the response and follow-up if needed. Please note: Queries are made part of the Legal Health Record. If you have any questions, please contact the author of this message via ITS. Dr. Ole Ma: Per the Attending Progress Notes: 08/27 & 08/28: "Renal failure acute on chronic kidney disease, which is slightly improving." History/Risk Factors: DM II, Chronic pain with opiate dependence, Paroxysmal Atrial Fibrillation, CAD, CHF, DVT, Hypertension, Hyperlipidemia, Neuropathy, Lupus, Back Pain. GFR 02/18/2017: 55 - >60. GFR 08/30/2019: 32 & 37 Clinical Indicators: Patient presented on 08/23 with bilateral lower extremity edema, diagnosed with bilateral lower extremity cellulitis & possible toxic metabolic encephalopathy. Treatment: IV Vancomycin, IV Dilaudid, IV Narcan, Insulin sq, po Bumex, IV Zosyn, IV Dextrose/Water w/Parenteral Vitamin Supplement/Thiamine/Folic Acid, IV Lopressor, po Kcl. Nephrology is not consulted. In order to capture the severity of condition, please clarify the stage of the CKD, if known: CKD Stage 2 (GFR 60-89) CKD Stage 3 (GFR 30-59) Other, please specify Unable to determine (Last Revision: June 2019) CKD Stage 3 (GFR 30-59) MTDD
[2019-08-30 14:32] LABS: Hepatitis A Antibody IgM Non-Reactive (Non-Reactive); Hepatitis B Core IgM Non-Reactive (Non-Reactive); Hepatitis B Surface Antigen Non-Reactive (Non-Reactive); Hepatitis C IgG Antibody Non-Reactive (Non-Reactive)
[2019-08-30 16:53] LABS: Glucose,Whole Blood 280 mg/dL (75-99)
[2019-08-30 18:29] LABS: Glucose,Whole Blood 298 mg/dL (75-99)
--- NOTE | 2019-08-30 19:39 | P.PN ---
Subjective Progress Note Date: 08/30/19 Patient is now fully alert and awake. Patient's encephalopathy has resolved. No seizures or any focal symptoms reported. States wants to go home. Also asking for a sleeping medication. Informed her that we do not want to give her any sleeping medication at this time. As the sleeping medication can make her encephalopathy gets worse. Objective - Vital Signs Vital signs: Vital Signs Temp 98 F 08/30/19 16:00 Pulse 77 08/30/19 16:00 Resp 16 08/30/19 16:00 BP 155/69 08/30/19 16:00 Pulse Ox 99 08/30/19 16:00 Intake & Output 08/30/19 08/30/19 08/31/19 06:59 18:59 06:59 Intake Total 900 Output Total 3100 2700 Balance -3100 -1800 Weight 86.5 kg Intake: Intake, IV Titration 300 Amount Dextrose 5% in Water 1, 200 000 ml @ 50 mls/hr IV . [id number] RUTH with Mvi, Adult No.4 with Vit K 10 ml with Thiamine 100 mg with Folic Acid 1 mg Rx#: [id number] Piperacillin-Tazobactam 3 100 .375 gm In Sodium Chloride 0.9% 100 ml @ 25 mls/hr IVPB Q8HR RUTH Rx# :[id number] Oral 600 Output: Urine 3100 2700 Other: Voiding Method Indwelling Catheter Indwelling Catheter # Bowel Movements 0 - Exam Patient is fully alert and awake, laying in the bed comfortably. Patient states is November and the year is 2019. She knows name of the current president and that she is in [facility] in [facility]. Speech is mildly hoarse but no aphasia or dysarthria. Muscle strength appears normal. No myoclonic jerks. No ataxia. - Labs CBC & Chem 7: 08/30/19 05:46 08/30/19 05:46 Labs: Abnormal Lab Results - Last 24 Hours (Table) 08/29/19 08/30/19 08/30/19 Range/Units 20:44 05:45 05:46 RBC (3.80-5.40) m/uL Hgb (11.4-16.0) gm/dL Hct (34.0-46.0) % MCH (25.0-35.0) pg MCHC (31.0-37.0) g/dL RDW (11.5-15.5) % Lymphocytes # (1.0-4.8) k/uL Potassium 2.5 L* (3.5-5.1) mmol/L Chloride 110 H (98-107) mmol/L BUN 53 H (7-17) mg/dL Creatinine 1.56 H (0.52-1.04) mg/dL Glucose 214 H (74-99) mg/dL POC Glucose (mg/dL) 233 H 240 H (75-99) mg/dL Calcium 7.8 L (8.4-10.2) mg/dL Total Bilirubin 2.8 H (0.2-1.3) mg/dL AST 3028 H (14-36) U/L ALT 2023 H (4-34) U/L Total Protein 6.1 L (6.3-8.2) g/dL Albumin 3.1 L (3.5-5.0) g/dL 08/30/19 08/30/19 08/30/19 Range/Units 05:46 11:33 16:52 RBC 2.99 L (3.80-5.40) m/uL Hgb 7.5 L (11.4-16.0) gm/dL Hct 24.8 L (34.0-46.0) % MCH 24.9 L (25.0-35.0) pg MCHC 30.0 L (31.0-37.0) g/dL RDW 18.0 H (11.5-15.5) % Lymphocytes # 0.7 L (1.0-4.8) k/uL Potassium (3.5-5.1) mmol/L Chloride (98-107) mmol/L BUN (7-17) mg/dL Creatinine (0.52-1.04) mg/dL Glucose (74-99) mg/dL POC Glucose (mg/dL) 260 H 280 H (75-99) mg/dL Calcium (8.4-10.2) mg/dL Total Bilirubin (0.2-1.3) mg/dL AST (14-36) U/L ALT (4-34) U/L Total Protein (6.3-8.2) g/dL Albumin (3.5-5.0) g/dL 04/13/20 Range/Units 18:27 RBC (3.80-5.40) m/uL Hgb (11.4-16.0) gm/dL Hct (34.0-46.0) % MCH (25.0-35.0) pg MCHC (31.0-37.0) g/dL RDW (11.5-15.5) % Lymphocytes # (1.0-4.8) k/uL Potassium (3.5-5.1) mmol/L Chloride (98-107) mmol/L BUN (7-17) mg/dL Creatinine (0.52-1.04) mg/dL Glucose (74-99) mg/dL POC Glucose (mg/dL) 298 H (75-99) mg/dL Calcium (8.4-10.2) mg/dL Total Bilirubin (0.2-1.3) mg/dL AST (14-36) U/L ALT (4-34) U/L Total Protein (6.3-8.2) g/dL Albumin (3.5-5.0) g/dL Microbiology - Last 24 Hours (Table) 08/28/19 14:42 Blood Culture - Preliminary Blood No Growth after 48 hours Assessment and Plan Assessment: * Altered mental status, likely related to toxic metabolic encephalopathy. Patient's various medical conditions including renal failure, anemia, cellulitis, CHF, hypothyroidism, abnormal liver functions and medications (gabapentin/opiates) were the likely causes. Encephalopathy now resolved. * Acute on chronic renal insufficiency. * Type 2 diabetes * Atrial fibrillation, currently not on anticoagulation. * Pacemaker. * Hypothyroidism * Cellulitis * Hyperlipidemia Plan: * Patient's encephalopathy has resolved. Stay off gabapentin, opiates. * EEG was abnormal due to background slowing of at least moderate degree. This is suggestive generalized cerebral dysfunction as can be seen in toxic metabolic encephalopathies or due to diffuse structural brain abnormality. No epileptiform activity was seen.. * Carotid Doppler revealed at least moderate atherosclerotic changes in bilateral carotid bifurcations. Exam is diagnostically very limited for the right ICA. No hemodynamically significant of the left. The left vertebral artery could not be visualized due to technical reasons. * MRI of brain and MRA of head were ordered, but unfortunately cannot be done due to presence of pacemaker. * B12 316, folate 12.1, TSH 5.54 mildly elevated, free T4 1 0.28 normal., amm onia <9. * Avoid opiates, sedatives and hypnotics. * Patient has atrial fibrillation, but currently not on any anticoagulation. I spoke to patient's sister Miss Cassidy on the phone. She informed me that patient had history of atrial fibrillation for which she was on Coumadin. She underwent cardiac ablation and pacemaker placement 1-/2 to 2 years ago, and after that Coumadin was discontinued. She is not on anticoagulants at this time. 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 Discussed with patient's sister in detail. * Treatment of various medical conditions as per IM. * Clear for discharge from neurology point. Neurology will sign off. Please ca ll neurology if any further concerns.
[2019-08-30 20:13] LABS: Glucose,Whole Blood 358 mg/dL (75-99)
[2019-08-30 23:39] LABS: Glucose,Whole Blood 229 mg/dL (75-99)
[2019-08-31] MEDS: DEXTROSE 5% IN WATER 1,000 ML with MVI, ADULT NO.4 WITH VIT K 10 ML, THIAMINE 100 MG, F... IV SCH ×4 (05:53)
[2019-08-31 06:00] LABS: Glucose,Whole Blood 158 mg/dL (75-99)
[2019-08-31] MEDS: PANTOPRAZOLE 40 MG TABLET PO SCH (06:23)
[2019-08-31] MEDS: INSULIN ASPART (NovoLOG) 100 UNIT/ML VIAL SQ SCH ×4 (06:24→20:39)
[2019-08-31] MEDS: LEVOTHYROXINE 125 MCG TAB PO SCH (06:24)
[2019-08-31 06:42] LABS: Anisocytosis Slight; Basophils % (A) 0 %; Eosinophils # (A) 0.3 k/uL (0-0.7); Eosinophils % (A) 4 %; HCT 24.1 % (34.0-46.0); HGB 7.3 gm/dL (11.4-16.0); Hypochromasia Marked; Lymphocytes # (A) 0.9 k/uL (1.0-4.8); Lymphocytes % (A) 14 %; MCH 24.5 pg (25.0-35.0); MCHC 30.2 g/dL (31.0-37.0); MCV 81.2 fL (80.0-100.0); Mean Platelet Volume 9.6; Microcytosis Slight; Monocytes # (A) 0.4 k/uL (0-1.0); Monocytes % (A) 6 %; Neutrophils # (A) 4.7 k/uL (1.3-7.7); Neutrophils % (A) 72 %; Platelet Count 156 k/uL (150-450); Poikilocytosis Moderate; RBC 2.97 m/uL (3.80-5.40); RDW 17.9 % (11.5-15.5); WBC 6.6 k/uL (3.8-10.6)
[2019-08-31 06:55] LABS: Calcium 7.5 mg/dL (8.4-10.2); Total Protein 5.9 g/dL (6.3-8.2)
--- NOTE | 2019-08-31 08:27 | P.PN ---
Subjective Principal diagnosis: Altered mental status. The patient has an element of toxic metabolic encephalopathy. This is a 73-year-old white female with known history of diabetes opiate dependence and history of congestive heart failure. The patient was scheduled to be discharged yesterday but had significant altered mental status. Workup so far is negative. Neurology has been consulted but she has slightly elevated ammonia level. Computed tomography scan had was done which did not show significant change. Appreciate neurology consultation. The patient is otherwise lucid. LFTs are decreasing. Objective - Vital Signs Vital signs: Vital Signs Temp 98.2 F 08/31/19 03:47 Pulse 100 08/31/19 03:47 Resp 19 08/31/19 03:47 BP 141/80 08/31/19 03:47 Pulse Ox 99 08/31/19 03:47 Intake & Output 08/30/19 08/31/19 08/31/19 18:59 06:59 18:59 Intake Total 900 Output Total 2700 2000 Balance -1800 -1999 Weight 80 kg Intake: Intake, IV Titration 300 Amount Dextrose 5% in Water 1, 200 000 ml @ 50 mls/hr IV . [id number] RUTH with Mvi, Adult No.4 with Vit K 10 ml with Thiamine 100 mg with Folic Acid 1 mg Rx#: [id number] Piperacillin-Tazobactam 3 100 .375 gm In Sodium Chloride 0.9% 100 ml @ 25 mls/hr IVPB Q8HR [facility] Rx# :[id number] Oral 600 Output: Urine 2700 2000 Other: Voiding Method Indwelling Catheter Indwelling Catheter - Constitutional General appearance: Present: obese - EENT Eyes: Absent: abnormal pupil - Neck Neck: Absent: lymphadenopathy - Respiratory Respiratory: bilateral: CTA - Cardiovascular Rhythm: regular Heart sounds: normal: S1, S2 Abnormal Heart Sounds: Absent: S3 Gallop - Gastrointestinal General gastrointestinal: Present: soft. Absent: tenderness - Integumentary Integumentary: Present: cellulitis - Labs CBC & Chem 7: 08/31/19 06:03 08/31/19 06:03 Labs: Abnormal Lab Results - Last 24 Hours (Table) 08/30/19 08/30/19 08/30/19 Range/Units 11:33 16:52 18:27 RBC (3.80-5.40) m/uL Hgb (11.4-16.0) gm/dL Hct (34.0-46.0) % MCH (25.0-35.0) pg MCHC (31.0-37.0) g/dL RDW (11.5-15.5) % Lymphocytes # (1.0-4.8) k/uL Potassium (3.5-5.1) mmol/L BUN (7-17) mg/dL Creatinine (0.52-1.04) mg/dL Glucose (74-99) mg/dL POC Glucose (mg/dL) 260 H 280 H 298 H (75-99) mg/dL Calcium (8.4-10.2) mg/dL Total Bilirubin (0.2-1.3) mg/dL ALT (4-34) U/L Total Protein (6.3-8.2) g/dL Albumin (3.5-5.0) g/dL 08/30/19 08/30/19 08/31/19 Range/Units 20:11 23:37 05:58 RBC (3.80-5.40) m/uL Hgb (11.4-16.0) gm/dL Hct (34.0-46.0) % MCH (25.0-35.0) pg MCHC (31.0-37.0) g/dL RDW (11.5-15.5) % Lymphocytes # (1.0-4.8) k/uL Potassium (3.5-5.1) mmol/L BUN (7-17) mg/dL Creatinine (0.52-1.04) mg/dL Glucose (74-99) mg/dL POC Glucose (mg/dL) 358 H 229 H 158 H (75-99) mg/dL Calcium (8.4-10.2) mg/dL Total Bilirubin (0.2-1.3) mg/dL ALT (4-34) U/L Total Protein (6.3-8.2) g/dL Albumin (3.5-5.0) g/dL 08/31/19 08/31/19 Range/Units 06:03 06:03 RBC 2.97 L (3.80-5.40) m/uL Hgb 7.3 L (11.4-16.0) gm/dL Hct 24.1 L (34.0-46.0) % MCH 24.5 L (25.0-35.0) pg MCHC 30.2 L (31.0-37.0) g/dL RDW 17.9 H (11.5-15.5) % Lymphocytes # 0.9 L (1.0-4.8) k/uL Potassium 3.0 L (3.5-5.1) mmol/L BUN 39 H (7-17) mg/dL Creatinine 1.28 H (0.52-1.04) mg/dL Glucose 149 H (74-99) mg/dL POC Glucose (mg/dL) (75-99) mg/dL Calcium 7.5 L (8.4-10.2) mg/dL Total Bilirubin 2.0 H (0.2-1.3) mg/dL ALT 1782 H (4-34) U/L Total Protein 5.9 L (6.3-8.2) g/dL Albumin 3.0 L (3.5-5.0) g/dL Microbiology - Last 24 Hours (Table) 08/28/19 14:42 Blood Culture - Preliminary Blood No Growth after 48 hours Assessment and Plan (1) Cellulitis Current Visit: Yes Status: Acute Code(s): L03.90 - CELLULITIS, UNSPECIFIED SNOMED Code(s): 446961556 (2) Anemia of chronic disease Current Visit: No Status: Acute Code(s): D63.8 - ANEMIA IN OTHER CHRONIC DISEASES CLASSIFIED ELSEWHERE SNOMED Code(s): 225550590 (3) Back pain Current Visit: No Status: Acute Code(s): M54.9 - DORSALGIA, UNSPECIFIED SNOMED Code(s): 108461807 (4) Leg pain Current Visit: No Status: Acute Code(s): M79.606 - PAIN IN LEG, UNSPECIFIED SNOMED Code(s): 66165214 (5) Low back pain Current Visit: No Status: Acute Code(s): M54.5 - LOW BACK PAIN SNOMED Code(s): 828504215 (6) Spinal stenosis, lumbar Current Visit: No Status: Acute Code(s): M48.06 - SPINAL STENOSIS, LUMBAR REGION * DO NOT USE * SNOMED Code(s): 95120888 (7) Weakness Current Visit: No Status: Acute Code(s): R53.1 - WEAKNESS SNOMED Code(s): 31298980 Plan: Continue to follow liver function tests. Check CBC and CMP in a.m. I suspect we will need to transfer to [facility] for rehab as her ambulation is still weak and poor. However, clinically significant improvement since 5 days ago.
[2019-08-31] MEDS: ISOSORBIDE MONONITRATE ER 30 MG TAB.ER.24H PO SCH (08:39)
[2019-08-31] MEDS: BUMETANIDE 1 MG TAB PO SCH ×2 (08:39→17:24)
[2019-08-31] MEDS: ASPIRIN 81 MG PO SCH (08:39)
[2019-08-31] MEDS: METOPROLOL TARTRATE 5 MG/5 ML VIAL IVP SCH ×2 (08:40→17:24)
[2019-08-31] MEDS: PIPERACILLIN-TAZOBACTAM 3.375 GM in SODIUM CHLORIDE 0.9% 100 ML IVPB SCH ×2 (08:40→17:24)
[2019-08-31] MEDS: HEPARIN SODIUM,PORCINE 5,000 UNIT/ML 1 ML VIAL SQ SCH ×2 (08:40→17:24)
[2019-08-31] MEDS: LOSARTAN 50 MG TAB PO SCH (08:40)
[2019-08-31 11:47] LABS: Glucose,Whole Blood 207 mg/dL (75-99)
--- NOTE | 2019-08-31 14:25 | US ---
EXAMINATION TYPE: US abdomen complete DATE OF EXAM: 08/31/2019 COMPARISON: 05/14/2019 right upper quadrant CLINICAL HISTORY: 73-year-old female Elevated LFT. TECHNIQUE: Multiple sonographic images of the abdomen are obtained. FINDINGS: Batter Scaler notes: Difficult exam due to overlying bowel gas and patient body habitus EXAM MEASUREMENTS: Liver Length: 15.9 cm Gallbladder: Surgically absent CBD: 1.4 cm Spleen: 10.3 cm Right Kidney: 11.0 x 4.4 x 4.6 cm Left Kidney: 11.1 x 4.8 x 4.4 cm Pancreas: A small portion of the pancreatic neck and body are visualized. Remainder suboptimally vis ualized due to shadowing from bowel gas. Main pancreatic duct is prominent at 2 mm. Liver: Slightly attenuating. This along with large patient body habitus limits assessment for focal l esion. Gallbladder: Surgically absent Evidence for sonographic Singh's sign: No CBD: Dilated (versus 1.7 cm on 05/14/2019) Spleen: Accessory spleen measuring 1.6 x 1.5 x 1.5 cm, otherwise, normal size. Kidneys: No hydronephrosis on either side. Upper IVC: wnl Abd Aorta: Proximal portion borderline ectatic at 2.5 cm, scattered atherosclerotic changes. No sono graphic evidence of AAA IMPRESSION: 1. Slightly attenuating liver could be on a technical basis or could reflect fatty infiltration. 2. Status post cholecystectomy. The bile duct caliber is large at 1.4 cm (versus 1.7 cm on 05/14/2019 ). This suggests chronic enlargement in this patient and can be corroborated with alkaline phosphatas e and bilirubin levels. 3. Suboptimal visualization of the pancreas.
--- NOTE | 2019-08-31 15:16 | P.PN ---
Subjective Progress Note Date: 08/31/19 Patient is now fully alert and awake. Patient's encephalopathy has resolved. No seizures or any focal symptoms reported. Complains of severe back and leg pain. States she has had 5 back surgeries. She states her cellulitis is hurting. Rates her pain 10/10. Objective - Vital Signs Vital signs: Vital Signs Temp 98 F 08/31/19 12:00 Pulse 107 H 08/31/19 12:00 Resp 18 08/31/19 12:00 BP 92/52 08/31/19 12:00 Pulse Ox 99 08/31/19 12:00 Intake & Output 08/30/19 08/31/19 08/31/19 18:59 06:59 18:59 Intake Total 900 590 Output Total 2700 2000 1300 Balance -1799 - Weight 80 kg Intake: Intake, IV Titration 300 300 Amount Dextrose 5% in Water 1, 200 200 000 ml @ 50 mls/hr IV . [id number] RUTH with Mvi, Adult No.4 with Vit K 10 ml with Thiamine 100 mg with Folic Acid 1 mg Rx#: [id number] Piperacillin-Tazobactam 3 100 100 .375 gm In Sodium Chloride 0.9% 100 ml @ 25 mls/hr IVPB Q8HR RUTH Rx# :[id number] Oral 600 290 Output: Urine 2700 2000 1300 Other: Voiding Method Indwelling Catheter Indwelling Catheter Indwelling Catheter - Exam Patient is fully alert and awake, sitting in the recliner chair comfortably. Speech is mildly hoarse but no aphasia or dysarthria. Muscle strength appears normal. No myoclonic jerks. No ataxia. - Labs CBC & Chem 7: 08/31/19 06:03 08/31/19 06:03 Labs: Abnormal Lab Results - Last 24 Hours (Table) 08/30/19 08/30/19 08/30/19 Range/Units 16:52 18:27 20:11 RBC (3.80-5.40) m/uL Hgb (11.4-16.0) gm/dL Hct (34.0-46.0) % MCH (25.0-35.0) pg MCHC (31.0-37.0) g/dL RDW (11.5-15.5) % Lymphocytes # (1.0-4.8) k/uL Potassium (3.5-5.1) mmol/L BUN (7-17) mg/dL Creatinine (0.52-1.04) mg/dL Glucose (74-99) mg/dL POC Glucose (mg/dL) 280 H 298 H 358 H (75-99) mg/dL Calcium (8.4-10.2) mg/dL Total Bilirubin (0.2-1.3) mg/dL ALT (4-34) U/L Total Protein (6.3-8.2) g/dL Albumin (3.5-5.0) g/dL 08/30/19 08/31/19 08/31/19 Range/Units 23:37 05:58 06:03 RBC (3.80-5.40) m/uL Hgb (11.4-16.0) gm/dL Hct (34.0-46.0) % MCH (25.0-35.0) pg MCHC (31.0-37.0) g/dL RDW (11.5-15.5) % Lymphocytes # (1.0-4.8) k/uL Potassium 3.0 L (3.5-5.1) mmol/L BUN 39 H (7-17) mg/dL Creatinine 1.28 H (0.52-1.04) mg/dL Glucose 149 H (74-99) mg/dL POC Glucose (mg/dL) 229 H 158 H (75-99) mg/dL Calcium 7.5 L (8.4-10.2) mg/dL Total Bilirubin 2.0 H (0.2-1.3) mg/dL ALT 1782 H (4-34) U/L Total Protein 5.9 L (6.3-8.2) g/dL Albumin 3.0 L (3.5-5.0) g/dL 08/31/19 08/31/19 Range/Units 06:03 11:44 RBC 2.97 L (3.80-5.40) m/uL Hgb 7.3 L (11.4-16.0) gm/dL Hct 24.1 L (34.0-46.0) % MCH 24.5 L (25.0-35.0) pg MCHC 30.2 L (31.0-37.0) g/dL RDW 17.9 H (11.5-15.5) % Lymphocytes # 0.9 L (1.0-4.8) k/uL Potassium (3.5-5.1) mmol/L BUN (7-17) mg/dL Creatinine (0.52-1.04) mg/dL Glucose (74-99) mg/dL POC Glucose (mg/dL) 207 H (75-99) mg/dL Calcium (8.4-10.2) mg/dL Total Bilirubin (0.2-1.3) mg/dL ALT (4-34) U/L Total Protein (6.3-8.2) g/dL Albumin (3.5-5.0) g/dL Microbiology - Last 24 Hours (Table) 08/28/19 14:42 Blood Culture - Preliminary Blood No Growth after 48 hours Assessment and Plan Assessment: * Altered mental status, likely related to toxic metabolic encephalopathy. Patient's various medical conditions including renal failure, anemia, cellulitis, CHF, hypothyroidism, abnormal liver functions and medications (gabapentin/opiates) were the likely causes. Encephalopathy now resolved. * Acute on chronic renal insufficiency. * Type 2 diabetes * Atrial fibrillation, currently not on anticoagulation. * Pacemaker. * Hypothyroidism * Cellulitis * Hyperlipidemia Plan: * Patient's encephalopathy has resolved. Stay off gabapentin, opiates. Patient complains of severe low back and leg pain. Patient has had 5 back surgeries. Patient may also have diabetic neuropathy. We will try Lyrica 50 mg twice a day for back and leg pain. * EEG was abnormal due to background slowing of at least moderate degree. This is suggestive generalized cerebral dysfunction as can be seen in toxic metabolic encephalopathies or due to diffuse structural brain abnormality. No epileptiform activity was seen.. * Carotid Doppler revealed at least moderate atherosclerotic changes in bilateral carotid bifurcations. Exam is diagnostically very limited for the right ICA. No hemodynamically significant of the left. The left vertebral artery could not be visualized due to technical reasons. * B12 316, folate 12.1, TSH 5.54 mildly elevated, free T4 1 0.28 normal., ammonia <9. Hemoglobin A1c 7.2 a year ago, we will recheck it. * Avoid opiates, sedatives and hypnotics. * Treatment of various medical conditions as per IM. * Clear for discharge from neurology point. Neurology will sign off. Please call neurology if any further concerns.
[2019-08-31 17:08] LABS: Glucose,Whole Blood 246 mg/dL (75-99)
[2019-08-31 20:33] LABS: Glucose,Whole Blood 239 mg/dL (75-99)
[2019-08-31] MEDS: PREGABALIN 50 MG CAP PO SCH (20:39)
[2019-08-31] MEDS: METOPROLOL TARTRATE 25 MG TAB PO SCH (20:39)
[2019-08-31] MEDS: POTASSIUM CHLORIDE ER 20 MEQ TAB.ER PO SCH (21:42)
[2019-09-01] MEDS: DEXTROSE 5% IN WATER 1,000 ML with MVI, ADULT NO.4 WITH VIT K 10 ML, THIAMINE 100 MG, F... IV SCH ×4 (00:05)
[2019-09-01] MEDS: POTASSIUM CHLORIDE ER 20 MEQ TAB.ER PO SCH ×4 (00:49→10:45)
[2019-09-01] MEDS: PIPERACILLIN-TAZOBACTAM 3.375 GM in SODIUM CHLORIDE 0.9% 100 ML IVPB SCH ×3 (01:09→16:15)
[2019-09-01] MEDS: HEPARIN SODIUM,PORCINE 5,000 UNIT/ML 1 ML VIAL SQ SCH ×3 (01:09→16:14)
[2019-09-01 02:38] LABS: Hemoglobin A1C 7.2 % (4.0-6.0)
[2019-09-01 06:03] LABS: Glucose,Whole Blood 189 mg/dL (75-99)
[2019-09-01 06:26] LABS: Anisocytosis Slight; HCT 22.9 % (34.0-46.0); Hypochromasia Marked; MCH 24.4 pg (25.0-35.0); MCHC 28.6 g/dL (31.0-37.0); MCV 85.2 fL (80.0-100.0); Mean Platelet Volume 9.9; Platelet Count 127 k/uL (150-450); Poikilocytosis Moderate; RBC 2.69 m/uL (3.80-5.40); RDW 18.1 % (11.5-15.5); WBC 4.8 k/uL (3.8-10.6)
[2019-09-01 06:33] LABS: HGB 6.6 gm/dL (11.4-16.0)
[2019-09-01 06:35] LABS: Albumin 2.6 g/dL (3.5-5.0); Calcium 6.7 mg/dL (8.4-10.2); Total Bilirubin 1.5 mg/dL (0.2-1.3); Total Protein 5.2 g/dL (6.3-8.2)
[2019-09-01] MEDS: LEVOTHYROXINE 125 MCG TAB PO SCH (06:53)
[2019-09-01] MEDS: INSULIN ASPART (NovoLOG) 100 UNIT/ML VIAL SQ SCH ×4 (06:53→21:29)
[2019-09-01] MEDS: PANTOPRAZOLE 40 MG TABLET PO SCH (06:54)
[2019-09-01 06:55] LABS: Potassium 2.7 mmol/L (3.5-5.1)
[2019-09-01] MEDS ORDERED: POTASSIUM CHLORIDE ER 20 MEQ TAB.ER PO STA (09:44)
[2019-09-01] MEDS: BUMETANIDE 1 MG TAB PO SCH ×2 (09:55→16:14)
[2019-09-01] MEDS: ASPIRIN 81 MG PO SCH (09:55)
[2019-09-01] MEDS: PREGABALIN 50 MG CAP PO SCH ×2 (09:55→21:30)
[2019-09-01] MEDS: LOSARTAN 50 MG TAB PO SCH (09:55)
[2019-09-01] MEDS: ISOSORBIDE MONONITRATE ER 30 MG TAB.ER.24H PO SCH (09:55)
[2019-09-01] MEDS: METOPROLOL TARTRATE 25 MG TAB PO SCH ×2 (09:55→21:30)
[2019-09-01 11:35] LABS: Glucose,Whole Blood 213 mg/dL (75-99)
[2019-09-01] MEDS ORDERED: Magnesium Replacement Protocol 1 EACH MISC MISCELLANE PRN (13:06)
--- NOTE | 2019-09-01 16:11 | P.PN ---
Subjective Progress Note Date: 09/01/19 Patient is now fully alert and awake. Patient's encephalopathy has resolved. No seizures or any focal symptoms reported. Patient was started on Lyrica yesterday. States is helping her. However still complaining of pain 01/26. Yesterday was 02/25. Denies any side effects of Lyrica. States never had tried Lyrica in the past. States she has had 5 back surgeries. She states her cellulitis is hurting. Objective - Vital Signs Vital signs: Vital Signs Temp 98.6 F 09/01/19 12:42 Pulse 83 09/01/19 12:42 Resp 16 09/01/19 12:42 BP 111/52 09/01/19 12:42 Pulse Ox 100 09/01/19 11:32 Intake & Output 08/31/19 09/01/19 09/01/19 18:59 06:59 18:59 Intake Total 1140 1320 Output Total 2200 1200 Balance -1060 -1200 1320 Weight 74.5 kg 74.5 kg Intake: IV 30 Invasive Line 7 30 Intake, IV Titration 650 Amount Dextrose 5% in Water 1, 550 000 ml @ 50 mls/hr IV . [id number] RUTH with Mvi, Adult No.4 with Vit K 10 ml with Thiamine 100 mg with Folic Acid 1 mg Rx#: [id number] Piperacillin-Tazobactam 3 100 .375 gm In Sodium Chloride 0.9% 100 ml @ 25 mls/hr IVPB Q8HR R[facility] Rx# :[id number] Oral 490 980 Blood Product 310 Rc As-1 Unit 310 [id number] Output: Urine 2200 1200 Other: Voiding Method Indwelling Catheter Indwelling Catheter Indwelling Catheter - Exam Patient is fully alert and awake, sitting in the recliner chair comfortably. Speech is mildly hoarse but no aphasia or dysarthria. Muscle strength appears normal. No myoclonic jerks. No ataxia. - Labs CBC & Chem 7: 09/01/19 05:25 09/01/19 05:25 Labs: Abnormal Lab Results - Last 24 Hours (Table) 08/30/19 08/31/19 08/31/19 Range/Units 05:46 17:07 20:32 RBC (3.80-5.40) m/uL Hgb (11.4-16.0) gm/dL Hct (34.0-46.0) % MCH (25.0-35.0) pg MCHC (31.0-37.0) g/dL RDW (11.5-15.5) % Plt Count (150-450) k/uL Sodium (137-145) mmol/L Potassium (3.5-5.1) mmol/L Chloride (98-107) mmol/L BUN (7-17) mg/dL Creatinine (0.52-1.04) mg/dL Glucose (74-99) mg/dL POC Glucose (mg/dL) 246 H 239 H (75-99) mg/dL Hemoglobin A1c 7.2 H (4.0-6.0) % Calcium (8.4-10.2) mg/dL Total Bilirubin (0.2-1.3) mg/dL AST (14-36) U/L ALT (4-34) U/L Total Protein (6.3-8.2) g/dL Albumin (3.5-5.0) g/dL Crossmatch 09/01/19 09/01/19 09/01/19 Range/Units 05:25 05:25 06:01 RBC 2.69 L (3.80-5.40) m/uL Hgb 6.6 L* (11.4-16.0) gm/dL Hct 22.9 L (34.0-46.0) % MCH 24.4 L (25.0-35.0) pg MCHC 28.6 L (31.0-37.0) g/dL RDW 18.1 H (11.5-15.5) % Plt Count 127 L (150-450) k/uL Sodium 126 L (137-145) mmol/L Potassium 2.7 L* (3.5-5.1) mmol/L Chloride 92 L (98-107) mmol/L BUN 29 H (7-17) mg/dL Creatinine 1.07 H (0.52-1.04) mg/dL Glucose 483 H (74-99) mg/dL POC Glucose (mg/dL) 189 H (75-99) mg/dL Hemoglobin A1c (4.0-6.0) % Calcium 6.7 L (8.4-10.2) mg/dL Total Bilirubin 1.5 H (0.2-1.3) mg/dL AST 704 H (14-36) U/L ALT 1038 H (4-34) U/L Total Protein 5.2 L (6.3-8.2) g/dL Albumin 2.6 L (3.5-5.0) g/dL Crossmatch 09/01/19 09/01/19 Range/Units 06:49 11:34 RBC (3.80-5.40) m/uL Hgb (11.4-16.0) gm/dL Hct (34.0-46.0) % MCH (25.0-35.0) pg MCHC (31.0-37.0) g/dL RDW (11.5-15.5) % Plt Count (150-450) k/uL Sodium (137-145) mmol/L Potassium (3.5-5.1) mmol/L Chloride (98-107) mmol/L BUN (7-17) mg/dL Creatinine (0.52-1.04) mg/dL Glucose (74-99) mg/dL POC Glucose (mg/dL) 213 H (75-99) mg/dL Hemoglobin A1c (4.0-6.0) % Calcium (8.4-10.2) mg/dL Total Bilirubin (0.2-1.3) mg/dL AST (14-36) U/L ALT (4-34) U/L Total Protein (6.3-8.2) g/dL Albumin (3.5-5.0) g/dL Crossmatch See Detail Microbiology - Last 24 Hours (Table) 08/28/19 14:42 Blood Culture - Preliminary Blood No Growth after 72 hours Assessment and Plan Assessment: * Toxic metabolic encephalopathy, now resolved. Patient's various medical conditions including renal failure, anemia, cellulitis, CHF, hypothyroidism, a bnormal liver functions and medications (gabapentin/opiates) were the likely causes. * Acute on chronic renal insufficiency. * Type 2 diabetes * Diabetic neuropathy. * Chronic back pain with multiple back surgeries. * Atrial fibrillation, currently not on anticoagulation. * Pacemaker. * Hypothyroidism * Cellulitis * Hyperlipidemia Plan: * Patient is doing better on Lyrica. Continue Lyrica at present dose. Slowly can increase the dose as tolerated, as outpatient. * Patient's encephalopathy has resolved. Stay off gabapentin, opiates. * EEG was abnormal due to background slowing of at least moderate degree. This is suggestive generalized cerebral dysfunction as can be seen in toxic metabolic encephalopathies or due to diffuse structural brain abnormality. No epileptiform activity was seen.. * Carotid Doppler revealed at least moderate atherosclerotic changes in bila teral carotid bifurcations. Exam is diagnostically very limited for the right ICA. No hemodynamically significant of the left. The left vertebral artery could not be visualized due to technical reasons. * B12 316, folate 12.1, TSH 5.54 mildly elevated, free T4 1 0.28 normal., ammonia <9. Hemoglobin A1c 7.2 a year ago, we will recheck it. * Avoid opiates, sedatives and hypnotics. * Treatment of various medical conditions as per IM. * Clear for discharge from neurology point. Neurology will sign off. Please call neurology if any further concerns.
[2019-09-01] MEDS: MAGNESIUM SULFATE-D5W PMX 1 GM in DEXTROSE/WATER 1 100ML.BAG IVPB SCH ×2 (16:15→17:29)
[2019-09-01 16:19] LABS: Glucose,Whole Blood 234 mg/dL (75-99)
[2019-09-01 20:15] LABS: Glucose,Whole Blood 285 mg/dL (75-99)
[2019-09-02] MEDS: PIPERACILLIN-TAZOBACTAM 3.375 GM in SODIUM CHLORIDE 0.9% 100 ML IVPB SCH ×4 (00:33→23:40)
[2019-09-02] MEDS: HEPARIN SODIUM,PORCINE 5,000 UNIT/ML 1 ML VIAL SQ SCH ×4 (00:33→23:40)
[2019-09-02 06:10] LABS: Glucose,Whole Blood 165 mg/dL (75-99)
[2019-09-02] MEDS: LEVOTHYROXINE 125 MCG TAB PO SCH (06:24)
[2019-09-02] MEDS: DEXTROSE 5% IN WATER 1,000 ML with MVI, ADULT NO.4 WITH VIT K 10 ML, THIAMINE 100 MG, F... IV SCH ×8 (06:25→17:16)
[2019-09-02] MEDS: INSULIN ASPART (NovoLOG) 100 UNIT/ML VIAL SQ SCH ×4 (06:25→21:45)
[2019-09-02] MEDS: PANTOPRAZOLE 40 MG TABLET PO SCH (06:25)
[2019-09-02 07:33] LABS: Anisocytosis Slight; HCT 25.9 % (34.0-46.0); HGB 7.4 gm/dL (11.4-16.0); Hypochromasia Marked; MCH 24.8 pg (25.0-35.0); MCHC 28.6 g/dL (31.0-37.0); MCV 86.7 fL (80.0-100.0); Mean Platelet Volume 10.9; Platelet Count 118 k/uL (150-450); Poikilocytosis Moderate; RBC 2.99 m/uL (3.80-5.40); RDW 17.9 % (11.5-15.5); WBC 6.1 k/uL (3.8-10.6)
[2019-09-02 07:44] LABS: Magnesium 1.9 mg/dL (1.6-2.3)
[2019-09-02 08:03] LABS: Calcium 6.3 mg/dL (8.4-10.2)
[2019-09-02] MEDS ORDERED: Potassium Replacement Protocol 1 EACH MISC MISCELLANE PRN (08:08)
--- NOTE | 2019-09-02 08:14 | P.PN ---
Subjective Principal diagnosis: Altered mental status. The patient has an element of toxic metabolic encephalopathy. This is a 73-year-old white female with known history of diabetes opiate dependence and history of congestive heart failure. The patient was scheduled to be discharged yesterday but had significant altered mental status. Workup so far is negative. Neurology has been consulted but she has slightly elevated ammonia level. Computed tomography scan had was done which did not show significant change. Appreciate neurology consultation. The patient is otherwise lucid. She has otherwise has hyponatremia. hypokalemia We had a short discussion regarding placement. She is adamant about going home. However, the patient is not ambulating appropriately for this at this time. Rehab is evaluating. Objective - Vital Signs Vital signs: Vital Signs Temp 98.0 F 09/02/19 04:00 Pulse 76 09/02/19 04:00 Resp 16 09/02/19 04:00 BP 128/57 09/02/19 04:00 Pulse Ox 100 09/02/19 04:00 Intake & Output 09/01/19 09/02/19 09/02/19 18:59 06:59 18:59 Intake Total 2064 504 Output Total 1500 900 Balance 564 -396 Weight 74.5 kg 82.5 kg Intake: IV 40 30 Invasive Line 7 40 30 Oral 1714 474 Blood Product 310 Rc As-1 Unit 310 [id number] Output: Urine 1500 900 Other: Voiding Method Indwelling Catheter Indwelling Catheter - Constitutional General appearance: Present: average body habitus - EENT Eyes: Absent: abnormal pupil - Neck Neck: Absent: lymphadenopathy - Respiratory Respiratory: bilateral: CTA - Cardiovascular Rhythm: regular Heart sounds: normal: S1, S2 Abnormal Heart Sounds: Absent: S3 Gallop - Gastrointestinal General gastrointestinal: Present: soft. Absent: tenderness - Integumentary Integumentary: Present: cellulitis - Musculoskeletal Musculoskeletal: Present: gait normal - Psychiatric Psychiatric: Present: A&O x's 3. Absent: appropriate affect - Labs CBC & Chem 7: 09/02/19 06:11 09/02/19 06:11 Labs: Abnormal Lab Results - Last 24 Hours (Table) 09/01/19 09/01/19 09/01/19 Range/Units 06:49 11:34 16:18 RBC (3.80-5.40) m/uL Hgb (11.4-16.0) gm/dL Hct (34.0-46.0) % MCH (25.0-35.0) pg MCHC (31.0-37.0) g/dL RDW (11.5-15.5) % Plt Count (150-450) k/uL Sodium (137-145) mmol/L Potassium (3.5-5.1) mmol/L Chloride (98-107) mmol/L BUN (7-17) mg/dL Glucose (74-99) mg/dL POC Glucose (mg/dL) 213 H 234 H (75-99) mg/dL Calcium (8.4-10.2) mg/dL Crossmatch See Detail 09/01/19 09/02/19 09/02/19 Range/Units 20:14 06:06 06:11 RBC (3.80-5.40) m/uL Hgb (11.4-16.0) gm/dL Hct (34.0-46.0) % MCH (25.0-35.0) pg MCHC (31.0-37.0) g/dL RDW (11.5-15.5) % Plt Count (150-450) k/uL Sodium 122 L (137-145) mmol/L Potassium 3.0 L (3.5-5.1) mmol/L Chloride 90 L (98-107) mmol/L BUN 23 H (7-17) mg/dL Glucose 569 H* (74-99) mg/dL POC Glucose (mg/dL) 285 H 165 H (75-99) mg/dL Calcium 6.3 L* (8.4-10.2) mg/dL Crossmatch 09/02/19 Range/Units 06:11 RBC 2.99 L (3.80-5.40) m/uL Hgb 7.4 L (11.4-16.0) gm/dL Hct 25.9 L (34.0-46.0) % MCH 24.8 L (25.0-35.0) pg MCHC 28.6 L (31.0-37.0) g/dL RDW 17.9 H (11.5-15.5) % Plt Count 118 L (150-450) k/uL Sodium (137-145) mmol/L Potassium (3.5-5.1) mmol/L Chloride (98-107) mmol/L BUN (7-17) mg/dL Glucose (74-99) mg/dL POC Glucose (mg/dL) (75-99) mg/dL Calcium (8.4-10.2) mg/dL Crossmatch Microbiology - Last 24 Hours (Table) 08/28/19 14:42 Blood Culture - Preliminary Blood No Growth after 96 hours Assessment and Plan (1) Cellulitis Current Visit: Yes Status: Acute Code(s): L03.90 - CELLULITIS, UNSPECIFIED SNOMED Code(s): 376812226 (2) Anemia of chronic disease Current Visit: No Status: Acute Code(s): D63.8 - ANEMIA IN OTHER CHRONIC DISEASES CLASSIFIED ELSEWHERE SNOMED Code(s): 561703477 (3) Back pain Current Visit: No Status: Acute Code(s): M54.9 - DORSALGIA, UNSPECIFIED SNOMED Code(s): 193648707 (4) Leg pain Current Visit: No Status: Acute Code(s): M79.606 - PAIN IN LEG, UNSPECIFIED SNOMED Code(s): 25224966 (5) Low back pain Current Visit: No Status: Acute Code(s): M54.5 - LOW BACK PAIN SNOMED Code(s): 424928936 (6) Spinal stenosis, lumbar Current Visit: No Status: Acute Code(s): M48.06 - SPINAL STENOSIS, LUMBAR REGION * DO NOT USE * SNOMED Code(s): 86228726 (7) Weakness Current Visit: No Status: Acute Code(s): R53.1 - WEAKNESS SNOMED Code(s): 73455351 Plan: Continue to follow liver function tests. Check CBC and CMP in a.m. I suspect we will need to transfer to [facility] for rehab as her ambulation is still weak and poor. However, clinically significant improvement since 5 days ago. He'll stool softener. DC dextrose and supplement with normal saline. Follow electrolytes and anemia closely. Anticipate discharge transfer in the next several days.
[2019-09-02] MEDS: SODIUM CHLORIDE 0.9% 1,000 ML IV SCH ×2 (08:15→23:40)
[2019-09-02] MEDS: ISOSORBIDE MONONITRATE ER 30 MG TAB.ER.24H PO SCH (11:14)
[2019-09-02] MEDS: METOPROLOL TARTRATE 25 MG TAB PO SCH ×2 (11:14→21:45)
[2019-09-02] MEDS: DOCUSATE 100 MG CAP PO SCH (11:14)
[2019-09-02] MEDS: LOSARTAN 50 MG TAB PO SCH (11:14)
[2019-09-02] MEDS: BUMETANIDE 1 MG TAB PO SCH ×2 (11:14→17:08)
[2019-09-02] MEDS: POTASSIUM CHLORIDE ER 20 MEQ TAB.ER PO SCH ×4 (11:14→14:23)
[2019-09-02] MEDS: ASPIRIN 81 MG PO SCH (11:14)
[2019-09-02] MEDS: PREGABALIN 50 MG CAP PO SCH (11:15)
[2019-09-02 11:33] LABS: Glucose,Whole Blood 245 mg/dL (75-99)
--- NOTE | 2019-09-02 15:00 | P.PN ---
Subjective Progress Note Date: 09/02/19 Patient is now fully alert and awake. Patient's encephalopathy has resolved. Patient is sitting in the recliner chair. No seizures or any focal symptoms reported. Patient is doing relatively better on Lyrica. Denies any side effects of Lyrica. States never had tried Lyrica in the past. States she has had 5 back surgeries. She states her cellulitis is hurting. Objective - Vital Signs Vital signs: Vital Signs Temp 97.6 F 09/02/19 11:05 Pulse 66 09/02/19 11:05 Resp 16 09/02/19 11:29 BP 132/77 09/02/19 11:05 Pulse Ox 100 09/02/19 11:05 Intake & Output 09/01/19 09/02/19 09/02/19 18:59 06:59 18:59 Intake Total 2064 504 290 Output Total 4849 313 4863 Balance 564 -924 -1090 Weight 74.5 kg 82.5 kg Intake: IV 40 30 20 Invasive Line 7 40 30 20 Oral 1714 474 270 Blood Product 310 Rc As-1 Unit 310 [id number] Output: Urine 9165 353 4340 Uretheral (Simms) 690 Other: Voiding Method Indwelling Catheter Indwelling Catheter Indwelling Catheter # Bowel Movements 2 - Exam Patient is fully alert and awake, sitting in the recliner chair comfortably. Speech is mildly hoarse but no aphasia or dysarthria. Muscle strength appears normal. No myoclonic jerks. No ataxia. - Labs CBC & Chem 7: 09/02/19 06:11 09/02/19 06:11 Labs: Abnormal Lab Results - Last 24 Hours (Table) 09/01/19 09/01/19 09/02/19 Range/Units 16:18 20:14 06:06 RBC (3.80-5.40) m/uL Hgb (11.4-16.0) gm/dL Hct (34.0-46.0) % MCH (25.0-35.0) pg MCHC (31.0-37.0) g/dL RDW (11.5-15.5) % Plt Count (150-450) k/uL Sodium (137-145) mmol/L Potassium (3.5-5.1) mmol/L Chloride (98-107) mmol/L BUN (7-17) mg/dL Glucose (74-99) mg/dL POC Glucose (mg/dL) 234 H 285 H 165 H (75-99) mg/dL Calcium (8.4-10.2) mg/dL Ionized Calcium Reena (4.5-5.3) mg/dL 09/02/19 09/02/19 09/02/19 Range/Units 06:11 06:11 08:33 RBC 2.99 L (3.80-5.40) m/uL Hgb 7.4 L (11.4-16.0) gm/dL Hct 25.9 L (34.0-46.0) % MCH 24.8 L (25.0-35.0) pg MCHC 28.6 L (31.0-37.0) g/dL RDW 17.9 H (11.5-15.5) % Plt Count 118 L (150-450) k/uL Sodium 122 L (137-145) mmol/L Potassium 3.0 L (3.5-5.1) mmol/L Chloride 90 L (98-107) mmol/L BUN 23 H (7-17) mg/dL Glucose 569 H* (74-99) mg/dL POC Glucose (mg/dL) (75-99) mg/dL Calcium 6.3 L* (8.4-10.2) mg/dL Ionized Calcium Reena 4.1 L (4.5-5.3) mg/dL 09/02/19 Range/Units 11:32 RBC (3.80-5.40) m/uL Hgb (11.4-16.0) gm/dL Hct (34.0-46.0) % MCH (25.0-35.0) pg MCHC (31.0-37.0) g/dL RDW (11.5-15.5) % Plt Count (150-450) k/uL Sodium (137-145) mmol/L Potassium (3.5-5.1) mmol/L Chloride (98-107) mmol/L BUN (7-17) mg/dL Glucose (74-99) mg/dL POC Glucose (mg/dL) 245 H (75-99) mg/dL Calcium (8.4-10.2) mg/dL Ionized Calcium Reena (4.5-5.3) mg/dL Microbiology - Last 24 Hours (Table) 08/28/19 14:42 Blood Culture - Preliminary Blood No Growth after 96 hours Assessment and Plan Assessment: * Toxic metabolic encephalopathy, now resolved. Patient's various medical conditions including renal failure, anemia, cellulitis, CHF, hypothyroidism, abnormal liver functions and medications (gabapentin/opiates) were the likely causes. * Acute on chronic renal insufficiency. * Type 2 diabetes * Diabetic neuropathy. * Chronic back pain with multiple back surgeries. * Atrial fibrillation, currently not on anticoagulation. * Pacemaker. * Hypothyroidism * Cellulitis * Hyperlipidemia Plan: * Patient is doing better on Lyrica. Continue Lyrica, we will increase dose to 75 mg twice a day. * Patient's encephalopathy has resolved. Stay off gabapentin, opiates. * EEG was abnormal due to background slowing of at least moderate degree. This is suggestive generalized cerebral dysfunction as can be seen in toxic metabolic encephalopathies or due to diffuse structural brain abnormality. No epileptiform activity was seen.. * Carotid Doppler revealed at least moderate atherosclerotic changes in bilateral carotid bifurcations. Exam is diagnostically very limited for the right ICA. No hemodynamically significant of the left. The left vertebral artery could not be visualized due to technical reasons. * B12 316, folate 12.1, TSH 5.54 mildly elevated, free T4 1 0.28 normal., ammonia <9. Hemoglobin A1c 7.2 a year ago, we will recheck it. * Avoid opiates, sedatives and hypnotics. * Treatment of various medical conditions as per IM. * Clear for discharge from neurology point. Neurology will sign off. Please call neurology if any further concerns.
[2019-09-02] MEDS ORDERED: CALCIUM GLUCONATE 1 GM in SODIUM CHLORIDE 0.9% 100 ML IVPB ONE (15:51)
[2019-09-02 16:35] LABS: Glucose,Whole Blood 421 mg/dL (75-99)
[2019-09-02 20:38] LABS: Glucose,Whole Blood 330 mg/dL (75-99)
[2019-09-02] MEDS: PREGABALIN 75 MG CAP PO SCH (21:45)
[2019-09-03 06:18] LABS: Glucose,Whole Blood 163 mg/dL (75-99)
[2019-09-03] MEDS: INSULIN ASPART (NovoLOG) 100 UNIT/ML VIAL SQ SCH ×4 (06:24→21:54)
[2019-09-03] MEDS: LEVOTHYROXINE 125 MCG TAB PO SCH (06:25)
[2019-09-03] MEDS: PANTOPRAZOLE 40 MG TABLET PO SCH (06:25)
--- NOTE | 2019-09-03 07:48 | P.PN ---
Subjective Principal diagnosis: History of altered mental status This is a 73-year-old white female with known history of diabetes opiate depen dence and history of congestive heart failure. The patient was scheduled to be discharged yesterday but had significant altered mental status. Workup so far is negative. Neurology has been consulted but she has slightly elevated ammonia level. Computed tomography scan had was done which did not show significant change. The patient is otherwise lucid. She has otherwise has hyponatremia. hypokalemia We had a short discussion regarding placement. She is adamant about going home. However, the patient is not ambulating appropriately for this at this time. Rehab is evaluating. Otherwise, this morning she is somewhat difficult to arouse. Appreciate neurology input however. Objective - Vital Signs Vital signs: Vital Signs Temp 98.0 F 09/03/19 04:00 Pulse 75 09/03/19 04:00 Resp 16 09/03/19 04:00 BP 153/67 09/03/19 04:00 Pulse Ox 100 09/03/19 04:00 Intake & Output 09/02/19 09/03/19 09/03/19 18:59 06:59 18:59 Intake Total 660 1192 Output Total 1682 2402 Balance -1022 -1210 Weight 72.5 kg Intake: IV 30 30 Invasive Line 7 30 30 Intake, IV Titration 925 Amount Piperacillin-Tazobactam 3 100 .375 gm In Sodium Chloride 0.9% 100 ml @ 25 mls/hr IVPB Q8HR RUTH Rx# :[id number] Sodium Chloride 0.9% 1, 825 000 ml @ 75 mls/hr IV . [id number] RUTH Rx#:[id number] Oral 630 237 Output: Urine 1680 2400 Uretheral (Simms) 990 1200 Stool 2 2 Other: Voiding Method Indwelling Catheter Indwelling Catheter # Bowel Movements 2 - Constitutional General appearance: Present: average body habitus - EENT Eyes: Absent: abnormal pupil - Neck Neck: Absent: lymphadenopathy - Respiratory Respiratory: bilateral: CTA - Cardiovascular Rhythm: regular Heart sounds: normal: S1, S2 Abnormal Heart Sounds: Absent: S3 Gallop - Gastrointestinal General gastrointestinal: Present: soft. Absent: tenderness - Integumentary Integumentary: Present: normal, normal turgor. Absent: rash, ulcer - Musculoskeletal Musculoskeletal: Present: generalized weakness - Labs CBC & Chem 7: 09/02/19 06:11 09/02/19 06:11 Labs: Abnormal Lab Results - Last 24 Hours (Table) 09/02/19 09/02/19 09/02/19 Range/Units 06:11 08:33 11:32 Sodium 122 L (137-145) mmol/L Potassium 3.0 L (3.5-5.1) mmol/L Chloride 90 L (98-107) mmol/L BUN 23 H (7-17) mg/dL Glucose 569 H* (74-99) mg/dL POC Glucose (mg/dL) 245 H (75-99) mg/dL Calcium 6.3 L* (8.4-10.2) mg/dL Ionized Calcium Reena 4.1 L (4.5-5.3) mg/dL 09/02/19 09/02/19 09/03/19 Range/Units 16:33 20:37 06:17 Sodium (137-145) mmol/L Potassium (3.5-5.1) mmol/L Chloride (98-107) mmol/L BUN (7-17) mg/dL Glucose (74-99) mg/dL POC Glucose (mg/dL) 421 H 330 H 163 H (75-99) mg/dL Calcium (8.4-10.2) mg/dL Ionized Calcium Reena (4.5-5.3) mg/dL Microbiology - Last 24 Hours (Table) 08/28/19 14:42 Blood Culture - Preliminary Blood No Growth after 120 hours Assessment and Plan (1) Cellulitis Current Visit: Yes Status: Acute Code(s): L03.90 - CELLULITIS, UNSPECIFIED SNOMED Code(s): 228318581 (2) Anemia of chronic disease Current Visit: No Status: Acute Code(s): D63.8 - ANEMIA IN OTHER CHRONIC DISEASES CLASSIFIED ELSEWHERE SNOMED Code(s): 244998561 (3) Back pain Current Visit: No Status: Acute Code(s): M54.9 - DORSALGIA, UNSPECIFIED SNOMED Code(s): 079762738 (4) Leg pain Current Visit: No Status: Acute Code(s): M79.606 - PAIN IN LEG, UNSPECIFIED SNOMED Code(s): 73448471 (5) Low back pain Current Visit: No Status: Acute Code(s): M54.5 - LOW BACK PAIN SNOMED Code(s): 779960245 (6) Spinal stenosis, lumbar Current Visit: No Status: Acute Code(s): M48.06 - SPINAL STENOSIS, LUMBAR REGION * DO NOT USE * SNOMED Code(s): 11292888 (7) Weakness Current Visit: No Status: Acute Code(s): R53.1 - WEAKNESS SNOMED Code(s): 00645483 Plan: Hypocalcemia and hypokalemia is noted. CMP is pending this morning. Continue rehab element. I suspect she needs rehab placement but she is refusing in the past. Dr. Ma's group for recovering for the weekend. Anticipate discharge in the next 1-2 days. Time with Patient: Greater than 30
[2019-09-03 07:59] LABS: Albumin 1.9 g/dL (3.5-5.0); Potassium 2.9 mmol/L (3.5-5.1); Total Bilirubin 0.9 mg/dL (0.2-1.3); Total Protein 4.4 g/dL (6.3-8.2)
[2019-09-03 08:12] LABS: Anisocytosis Slight; Calcium 5.7 mg/dL (8.4-10.2); HCT 20.8 % (34.0-46.0); Hypochromasia Marked; MCH 25.1 pg (25.0-35.0); MCHC 29.3 g/dL (31.0-37.0); MCV 85.6 fL (80.0-100.0); Mean Platelet Volume 11.8; Poikilocytosis Moderate; RBC 2.43 m/uL (3.80-5.40); RDW 17.8 % (11.5-15.5)
[2019-09-03 08:15] LABS: HGB 6.1 gm/dL (11.4-16.0)
[2019-09-03 08:52] LABS: Platelet Count 89 k/uL (150-450)
[2019-09-03] MEDS ORDERED: Potassium Replacement Protocol 1 EACH MISC MISCELLANE PRN (09:10)
[2019-09-03] MEDS ORDERED: CALCIUM GLUCONATE 1 GM in SODIUM CHLORIDE 0.9% 100 ML IVPB ONE (10:00)
[2019-09-03] MEDS: SODIUM CHLORIDE 0.9% 1,000 ML IV SCH (10:11)
[2019-09-03] MEDS: PREGABALIN 75 MG CAP PO SCH ×2 (10:12→21:53)
[2019-09-03] MEDS: METOPROLOL TARTRATE 25 MG TAB PO SCH ×2 (10:12→21:53)
[2019-09-03] MEDS: BUMETANIDE 1 MG TAB PO SCH ×2 (10:12→17:43)
[2019-09-03] MEDS: POTASSIUM CHLORIDE ER 20 MEQ TAB.ER PO SCH ×4 (10:12→13:26)
[2019-09-03] MEDS: ISOSORBIDE MONONITRATE ER 30 MG TAB.ER.24H PO SCH (10:12)
[2019-09-03] MEDS: ASPIRIN 81 MG PO SCH ×2 (10:12→11:42)
[2019-09-03] MEDS: HEPARIN SODIUM,PORCINE 5,000 UNIT/ML 1 ML VIAL SQ SCH ×3 (10:12→23:52)
[2019-09-03] MEDS: LOSARTAN 50 MG TAB PO SCH (10:12)
[2019-09-03] MEDS: DOCUSATE 100 MG CAP PO SCH (10:13)
[2019-09-03] MEDS: PIPERACILLIN-TAZOBACTAM 3.375 GM in SODIUM CHLORIDE 0.9% 100 ML IVPB SCH ×3 (10:13→23:52)
[2019-09-03 11:44] LABS: Glucose,Whole Blood 277 mg/dL (75-99)
[2019-09-03 12:49] VITALS: BMI 23.6
[2019-09-03 16:45] LABS: Glucose,Whole Blood 193 mg/dL (75-99)
[2019-09-03 17:04] LABS: Anisocytosis Slight; HCT 28.8 % (34.0-46.0); Hypochromasia Marked; MCH 24.8 pg (25.0-35.0); MCHC 29.9 g/dL (31.0-37.0); MCV 82.9 fL (80.0-100.0); Mean Platelet Volume 8.7; Platelet Count 111 k/uL (150-450); Poikilocytosis Marked; RBC 3.47 m/uL (3.80-5.40); RDW 17.7 % (11.5-15.5)
[2019-09-03 17:10] LABS: HGB 8.6 gm/dL (11.4-16.0)
--- NOTE | 2019-09-03 17:14 | P.PN ---
Subjective Progress Note Date: 09/03/19 Patient continues to complain of pain in the legs and back. She also has severe arthritis of her knees and hips, or "bone on bone". Patient is now fully alert and awake. Patient's encephalopathy has resolved. Patient is laying in the bed comfortably. No seizures or any focal symptoms reported. Patient is doing relatively better on Lyrica. Denies any side effects of Lyrica. States never had tried Lyrica in the past. States she has had 5 back surgeries. She states her cellulitis is hurting. Objective - Vital Signs Vital signs: Vital Signs Temp 97.6 F 09/03/19 12:10 Pulse 76 09/03/19 12:10 Resp 16 09/03/19 12:34 BP 126/56 09/03/19 12:10 Pulse Ox 100 09/03/19 12:10 Intake & Output 09/02/19 09/03/19 09/03/19 18:59 06:59 18:59 Intake Total 660 1192 2450 Output Total 1682 2402 560 Balance -1022 -1210 1890 Weight 72.5 kg 72.5 kg Intake: IV 30 30 820 Calcium Gluconate 1 gm In 100 Sodium Chloride 0.9% 100 ml @ 100 mls/hr IVPB ONCE ONE Rx#:[id number] Invasive Line 7 30 30 20 Piperacillin-Tazobactam 3 100 .375 gm In Sodium Chloride 0.9% 100 ml @ 25 mls/hr IVPB Q8HR [facility] Rx# :[id number] Sodium Chloride 0.9% 1, 600 000 ml @ 75 mls/hr IV . [id number] [facility] Rx#:[id number] Intake, IV Titration 925 Amount Piperacillin-Tazobactam 3 100 .375 gm In Sodium Chloride 0.9% 100 ml @ 25 mls/hr IVPB Q8HR [facility] Rx# :[id number] Sodium Chloride 0.9% 1, 825 000 ml @ 75 mls/hr IV . [id number] [facility] Rx#:[id number] Oral 607 660 5088 Blood Product 310 Rc As-1 Unit 310 [id number] Output: Urine 1680 2400 560 Uretheral (Simms) 990 1200 Stool 2 2 Other: Voiding Method Indwelling Catheter Indwelling Catheter Indwelling Catheter # Bowel Movements 2 - Exam Patient is fully alert and awake, fully oriented. Patient's muscle strength is normal in the arms and legs, except hip flexion, which is about 3, knee extension appears normal but has giveaway weakness because of pain. Plantars are flat. - Labs CBC & Chem 7: 09/03/19 05:47 09/03/19 05:47 Labs: Abnormal Lab Results - Last 24 Hours (Table) 09/01/19 09/02/19 09/02/19 Range/Units 06:49 16:33 20:37 RBC (3.80-5.40) m/uL Hgb (11.4-16.0) gm/dL Hct (34.0-46.0) % MCHC (31.0-37.0) g/dL RDW (11.5-15.5) % Plt Count (150-450) k/uL Potassium (3.5-5.1) mmol/L Chloride (98-107) mmol/L Carbon Dioxide (22-30) mmol/L BUN (7-17) mg/dL Glucose (74-99) mg/dL POC Glucose (mg/dL) 421 H 330 H (75-99) mg/dL Calcium (8.4-10.2) mg/dL Ionized Calcium Reena (4.5-5.3) mg/dL AST (14-36) U/L ALT (4-34) U/L Total Protein (6.3-8.2) g/dL Albumin (3.5-5.0) g/dL Crossmatch See Detail 09/03/19 09/03/19 09/03/19 Range/Units 05:47 05:47 06:17 RBC 2.43 L (3.80-5.40) m/uL Hgb 6.1 L* (11.4-16.0) gm/dL Hct 20.8 L (34.0-46.0) % MCHC 29.3 L (31.0-37.0) g/dL RDW 17.8 H (11.5-15.5) % Plt Count 89 L (150-450) k/uL Potassium 2.9 L (3.5-5.1) mmol/L Chloride 111 H (98-107) mmol/L Carbon Dioxide 19 L (22-30) mmol/L BUN 18 H (7-17) mg/dL Glucose 110 H (74-99) mg/dL POC Glucose (mg/dL) 163 H (75-99) mg/dL Calcium 5.7 L* (8.4-10.2) mg/dL Ionized Calcium Reena (4.5-5.3) mg/dL AST 111 H (14-36) U/L ALT 420 H (4-34) U/L Total Protein 4.4 L (6.3-8.2) g/dL Albumin 1.9 L (3.5-5.0) g/dL Crossmatch 09/03/19 09/03/19 Range/Units 08:57 11:43 RBC (3.80-5.40) m/uL Hgb (11.4-16.0) gm/dL Hct (34.0-46.0) % MCHC (31.0-37.0) g/dL RDW (11.5-15.5) % Plt Count (150-450) k/uL Potassium (3.5-5.1) mmol/L Chloride (98-107) mmol/L Carbon Dioxide (22-30) mmol/L BUN (7-17) mg/dL Glucose (74-99) mg/dL POC Glucose (mg/dL) 277 H (75-99) mg/dL Calcium (8.4-10.2) mg/dL Ionized Calcium Reena 4.2 L (4.5-5.3) mg/dL AST (14-36) U/L ALT (4-34) U/L Total Protein (6.3-8.2) g/dL Albumin (3.5-5.0) g/dL Crossmatch Microbiology - Last 24 Hours (Table) 08/28/19 14:42 Blood Culture - Preliminary Blood No Growth after 120 hours Assessment and Plan Assessment: * Toxic metabolic encephalopathy, now resolved. Patient's various medical conditions including renal failure, anemia, cellulitis, CHF, hypothyroidism, abnormal liver functions and medications (gabapentin/opiates) were the likely causes. * Chronic back pain. History of multiple surgeries. Possible diabetic peripheral neuropathy. * Severe degenerative arthritis of bilateral hips and knees. * Acute on chronic renal insufficiency. * Type 2 diabetes * Atrial fibrillation, currently not on anticoagulation. * Pacemaker. * Hypothyroidism * Cellulitis * Hyperlipidemia Plan: * Patient will continue Lyrica 75 mg twice a day. Consider adding a nonsteroidal anti-inflammatory medication like Mobic to help with degenerative arthritis. * Patient's encephalopathy has resolved. Stay off gabapentin, opiates. * EEG was abnormal due to background slowing of at least moderate degree. This is suggestive generalized cerebral dysfunction as can be seen in toxic metabolic encephalopathies or due to diffuse structural brain abnormality. No epileptiform activity was seen.. * Carotid Doppler revealed at least moderate atherosclerotic changes in bilateral carotid bifurcations. Exam is diagnostically very limited for the right ICA. No hemodynamically significant of the left. The left vertebral artery could not be visualized due to technical reasons. * B12 316, folate 12.1, TSH 5.54 mildly elevated, free T4 1 0.28 normal., ammonia <9. Hemoglobin A1c 7.2 a year ago, repeat A1c also 7.2. * Treatment of various medical conditions as per IM. * Clear for discharge from neurology point. Neurology will sign off. Please call neurology if any further concerns.
[2019-09-03 17:58] LABS: Eosinophils # (M) 0.08 k/uL (0-0.7); Lymphocytes # (M) 0.56 k/uL (1.0-4.8); Monocytes # (M) 0.32 k/uL (0-1.0); Neutrophils # (M) 7.04 k/uL (1.3-7.7); Neutrophils % (M) 88 %; Nucleated Red Blood Cells 0 /100 WBC (0-0); Total Cells Counted 100
[2019-09-03 21:19] LABS: Glucose,Whole Blood 249 mg/dL (75-99)
[2019-09-03] MEDS: PANTOPRAZOLE 40 MG/10 ML VIAL IVP SCH (21:53)
[2019-09-03 23:03] VITALS: RESP 18
[2019-09-04] MEDS: SODIUM CHLORIDE 0.9% 1,000 ML IV SCH ×2 (01:19→07:49)
[2019-09-04] MEDS ORDERED: ACETAMINOPHEN TAB 325 MG TAB PO PRN (04:57)
[2019-09-04 06:06] LABS: Glucose,Whole Blood 202 mg/dL (75-99)
[2019-09-04] MEDS: INSULIN ASPART (NovoLOG) 100 UNIT/ML VIAL SQ SCH ×4 (06:12→20:47)
[2019-09-04] MEDS: LEVOTHYROXINE 125 MCG TAB PO SCH (06:12)
[2019-09-04 07:21] LABS: Anisocytosis Slight; HCT 26.7 % (34.0-46.0); HGB 7.9 gm/dL (11.4-16.0); Hypochromasia Marked; MCH 25.1 pg (25.0-35.0); MCHC 29.6 g/dL (31.0-37.0); MCV 84.9 fL (80.0-100.0); Mean Platelet Volume 10.1; Platelet Count 107 k/uL (150-450); Poikilocytosis Moderate; RBC 3.14 m/uL (3.80-5.40); RDW 18.3 % (11.5-15.5); WBC 5.8 k/uL (3.8-10.6)
[2019-09-04 07:36] LABS: Calcium 7.7 mg/dL (8.4-10.2); Potassium 3.8 mmol/L (3.5-5.1); Total Bilirubin 1.3 mg/dL (0.2-1.3)
[2019-09-04] MEDS ORDERED: Potassium Replacement Protocol 1 EACH MISC MISCELLANE PRN (07:47)
[2019-09-04] MEDS ORDERED: POTASSIUM CHLORIDE ER 20 MEQ TAB.ER PO SCH (08:00)
[2019-09-04] MEDS: ASPIRIN 81 MG PO SCH (08:43)
[2019-09-04] MEDS: LOSARTAN 50 MG TAB PO SCH (08:43)
[2019-09-04] MEDS: BUMETANIDE 1 MG TAB PO SCH (08:43)
[2019-09-04] MEDS: ISOSORBIDE MONONITRATE ER 30 MG TAB.ER.24H PO SCH (08:43)
[2019-09-04] MEDS: PREGABALIN 75 MG CAP PO SCH ×2 (08:43→20:02)
[2019-09-04] MEDS: HEPARIN SODIUM,PORCINE 5,000 UNIT/ML 1 ML VIAL SQ SCH ×3 (08:43→23:38)
[2019-09-04] MEDS: PANTOPRAZOLE 40 MG/10 ML VIAL IVP SCH ×2 (08:43→20:03)
[2019-09-04] MEDS: DOCUSATE 100 MG CAP PO SCH (08:44)
[2019-09-04] MEDS: PIPERACILLIN-TAZOBACTAM 3.375 GM in SODIUM CHLORIDE 0.9% 100 ML IVPB SCH (08:44)
[2019-09-04] MEDS: METOPROLOL TARTRATE 25 MG TAB PO SCH ×2 (08:44→20:02)
[2019-09-04 11:05] LABS: Glucose,Whole Blood 302 mg/dL (75-99)
[2019-09-04] MEDS: traMADol 50 MG TAB PO PRN ×3 (11:57→23:37)
--- NOTE | 2019-09-04 12:00 | P.PN ---
Subjective 73-year-old female was admitted for cellulitis of the left lower extremity and narcotic-induced severe toxic encephalopathy all of which improved her all the narcotics were dyspnea patient is comparing of severe back pain started on tramadol patient also has diuretic neuropathy for which patient used to take Neurontin which was switched to Lyrica here. Patient was a evaluated extensively by multiple consultants including neurology patient is cleared for discharge. Patient still remains mildly hyponatremic patient is receiving both Bumex and the IV fluids both of which will be discussed uterine Will repeat basic metabolic profile tomorrow if that looks okay patient will be discharged tomorrow. Patient may need a lesser dose of Bumex patient was severely hyponatremic went on admission patient they use to take 1 mg 3 times a day of for Bumex she may need 1 mg dailytwice a day and with close monitoring as an outpatient patient has moderate to severe pulmonary hypertension leading to peripheral edema there is no evidence of systolic or diastolic dysfunction patient was never admitted for with heart failure exacerbation in the past Constitutional: Denied any fatigue denied any fever. Cardio vascular: denied any chest pain, palpitations Gastrointestinal denied any nausea vomiting Pulmonary: Denied any shortness of breath cough Neurologic denied any new focal deficits All inpatient medications were reviewed and appropriate changes in these medications as dictated in the interval history and assessment and plan. Objective - Vital Signs Vital signs: Vital Signs Temp 97.8 F 09/04/19 11:35 Pulse 74 09/04/19 11:35 Resp 18 09/04/19 11:35 BP 117/51 09/04/19 11:35 Pulse Ox 99 09/04/19 11:35 Intake & Output 09/03/19 09/04/19 09/04/19 18:59 06:59 18:59 Intake Total 2740 900 700 Output Total 562 Balance 2178 900 700 Weight 72.5 kg 94.9 kg Intake: IV 850 100 Calcium Gluconate 1 gm In 100 Sodium Chloride 0.9% 100 ml @ 100 mls/hr IVPB ONCE ONE Rx#:[id number] Invasive Line 7 30 Invasive Line 8 20 Piperacillin-Tazobactam 3 100 100 .375 gm In Sodium Chloride 0.9% 100 ml @ 25 mls/hr IVPB Q8HR [facility] Rx# :[id number] Sodium Chloride 0.9% 1, 600 000 ml @ 75 mls/hr IV . [id number] [facility] Rx#:[id number] Oral 1580 900 600 Blood Product 310 Rc As-1 Unit 310 [id number] Output: Urine 560 Stool 2 Other: Voiding Method Indwelling Catheter # Voids 1 4 3 - Exam PHYSICAL EXAMINATION: GENERAL: The patient is alert and oriented x3, not in any acute distress. Well developed, well nourished. HEENT: Pupils are round and equally reacting to light. EOMI. No scleral icterus. No conjunctival pallor. Normocephalic, atraumatic. No pharyngeal erythema. No thyromegaly. CARDIOVASCULAR: S1 and S2 present. No murmurs, rubs, or gallops. PULMONARY: Chest is clear to auscultation, no wheezing or crackles. ABDOMEN: Soft, nontender, nondistended, normoactive bowel sounds. No palpable organomegaly. MUSCULOSKELETAL: No joint swelling or deformity. EXTREMITIES: No cyanosis, clubbing, or pedal edema. NEUROLOGICAL: Gross neurological examination did not reveal any focal deficits. SKIN: No rashes. - Labs CBC & Chem 7: 09/04/19 06:53 09/04/19 06:53 Labs: Abnormal Lab Results - Last 24 Hours (Table) 09/01/19 09/03/19 09/03/19 Range/Units 06:49 12:50 16:43 RBC (3.80-5.40) m/uL Hgb (11.4-16.0) gm/dL Hct (34.0-46.0) % MCH (25.0-35.0) pg MCHC (31.0-37.0) g/dL RDW (11.5-15.5) % Plt Count (150-450) k/uL Lymphocytes # (Manual) (1.0-4.8) k/uL Sodium (137-145) mmol/L BUN (7-17) mg/dL Glucose (74-99) mg/dL POC Glucose (mg/dL) 193 H (75-99) mg/dL Calcium (8.4-10.2) mg/dL AST (14-36) U/L ALT (4-34) U/L Total Protein (6.3-8.2) g/dL Albumin (3.5-5.0) g/dL Stool Occult Blood Positive H (Negative) Crossmatch See Detail 09/03/19 09/03/19 09/04/19 Range/Units 16:58 21:05 05:54 RBC 3.47 L (3.80-5.40) m/uL Hgb 8.6 L D (11.4-16.0) gm/dL Hct 28.8 L (34.0-46.0) % MCH 24.8 L (25.0-35.0) pg MCHC 29.9 L (31.0-37.0) g/dL RDW 17.7 H (11.5-15.5) % Plt Count 111 L (150-450) k/uL Lymphocytes # (Manual) 0.56 L (1.0-4.8) k/uL Sodium (137-145) mmol/L BUN (7-17) mg/dL Glucose (74-99) mg/dL POC Glucose (mg/dL) 249 H 202 H (75-99) mg/dL Calcium (8.4-10.2) mg/dL AST (14-36) U/L ALT (4-34) U/L Total Protein (6.3-8.2) g/dL Albumin (3.5-5.0) g/dL Stool Occult Blood (Negative) Crossmatch 09/04/19 09/04/19 09/04/19 Range/Units 06:53 06:53 11:03 RBC 3.14 L (3.80-5.40) m/uL Hgb 7.9 L (11.4-16.0) gm/dL Hct 26.7 L (34.0-46.0) % MCH (25.0-35.0) pg MCHC 29.6 L (31.0-37.0) g/dL RDW 18.3 H (11.5-15.5) % Plt Count 107 L (150-450) k/uL Lymphocytes # (Manual) (1.0-4.8) k/uL Sodium 134 L (137-145) mmol/L BUN 19 H (7-17) mg/dL Glucose 182 H (74-99) mg/dL POC Glucose (mg/dL) 302 H (75-99) mg/dL Calcium 7.7 L (8.4-10.2) mg/dL AST 98 H (14-36) U/L ALT 431 H (4-34) U/L Total Protein 6.0 L (6.3-8.2) g/dL Albumin 3.0 L (3.5-5.0) g/dL Stool Occult Blood (Negative) Crossmatch Microbiology - Last 24 Hours (Table) 08/28/19 14:42 Blood Culture - Final Blood No Growth after 144 hours Assessment and Plan Plan: -toxic encephalopathy secondary to opiate analgesia 6 which resolved at this time -Left lower extremity cellulitis which improved at this time patient will not require any more antibiotics upon discharge patient received about 10 days of antibiotics here --acute hepatitis which appears to have improved and liver enzymes remain stable etiology of hepatitis may be drug-induced -No evidence of heart failure no evidence of a pneumonia at this time -Acute renal failure which resolved -Chronic low back pain with peripheral neuropathy and diabetic neuropathy -Type 2 diabetes mellitus -Moderate to severe pulmonary hypertensionit is of which patient has bilateral leg edema because of which patient uses Bumex dose of which need to be cut down now -Hypertension -Hyperlipidemia -Diabetic peripheral neuropathy -Coronary artery disease with CABG in the past
[2019-09-04] MEDS ORDERED: traMADol 50 MG TAB PO SCH (13:00)
--- NOTE | 2019-09-04 16:44 | CONS ---
CONSULTATION DATE OF SERVICE: 09/04/2019 REQUESTING PHYSICIAN: Dr. Hdz. The patient is 73-year-old pleasant white female admitted to the hospital 10 days ago with bilateral lower extremity edema, shortness of breath as well as recurrent cellulitis of the right lower extremity. During the course of hospitalization she also had altered mental status and neurology was consulted for possible metabolic encephalopathy which since has resolved. Over the last few days she started gradually dropping hemoglobin to 6.1, requiring one unit of blood transfusion and subsequently it dropped to 6.5 again and needed another unit of blood transfusion. The stool Hemoccult was reported as positive and hence we are consulted in regards to this issue. The patient denies any abdominal pain. Reports no nausea or vomiting. No rectal bleeding or melena. She states that she did have a colonoscopy when she was living in [place] in 2017 and was noted to have a large polyp and subsequently underwent a partial colon resection. Subsequently she had a repeat colonoscopy in 2018 that was reported as negative. She denies any prior history of peptic ulcer disease. Reports no recent NSAID use. She was also noted to have elevated serum transaminases almost in the range of 4000 at the time of admission to the hospital. COVID-19 testing was negative. During the course of the last one week her serum transaminases are gradually improving. She denies any history of underlying liver disease. She reports no abdominal pain. MEDICATIONS: Her current medications in the hospital include Tylenol, aspirin, Colace, heparin, NovoLog, Imdur, Synthroid, Cozaar, Lopressor, Narcan, Zofran, Protonix, Lyrica, and Silvadene cream. ALLERGIES: None. SOCIAL HISTORY: No smoking or alcohol use. FAMILY HISTORY: Unremarkable. PAST SURGICAL HISTORY: Partial colon resection in 2017 for colon polyp, history of breast surgery, back surgery, appendectomy, cholecystectomy, CABG, pacemaker implantation, thyroidectomy, bilateral cataract surgeries. SOCIAL HISTORY: Former smoker. No alcohol use. FAMILY HISTORY: Father had prostate cancer. Mother had congestive heart failure, diabetes mellitus and colon cancer. Father had DVT and coronary artery disease. REVIEW OF SYSTEMS: CARDIOPULMONARY: She denies any chest pain, shortness of breath. : No dysuria or hematuria. MUSCULOSKELETAL: Unremarkable. SKIN: Unremarkable. ENDOCRINE: Unremarkable. PSYCHIATRIC: Unremarkable. NEUROLOGY: Unremarkable. ENT: Vision unremarkable. CONSTITUTIONAL: No recent weight loss. No fever, chills, night sweats. PHYSICAL EXAMINATION: Blood pressure is 120/50, pulse rate 72 per minute and afebrile. HEENT examination unremarkable. Conjunctivae pink. Sclerae anicteric. Oral cavity no lesions. NECK: No JVD or lymph node enlargement. CHEST: Clear to auscultation. HEART: Regular rate and rhythm. ABDOMEN: Soft. Bowel sounds are positive. No organomegaly. EXTREMITIES: No pedal edema. NEURO: Alert and oriented x3. No focal deficits. LABS: From today show WBC is 5.8, hemoglobin was 6.6 on 08/31. Received 1 unit of blood transfusion and repeat hemoglobin on 09/02 which was yesterday was 6.1. She received another unit of blood transfusion and today hemoglobin is 7.8 g/dL. MCV is normal at 83. AST and ALT have improved to 98 and 431 respectively. AST was 4063 on 08/28, and ALT was 2023 on 08/28. Coronavirus PCR was negative. Hepatitis serologies for A, B and C are negative. Stool occult blood was positive. IMPRESSION: 1. Normocytic anemia with clinically no evidence of active gastrointestinal bleed. She was noted to have Hemoccult-positive stool. She received 2 units of PRBC transfusion and hemoglobin today is 8.1 g/dL. Last colonoscopy 2 years ago in [place] according to the patient was within normal limits and the colonoscopy prior to that showed a large colon polyp for which she underwent partial colon resection. No prior history of peptic ulcer disease or recent NSAID use. At this time anemia could be multifactorial in etiology. Part of it could be anemia of chronic disease but she does have component of occult gastrointestinal blood loss, but clinically no active bleeding. 2. Altered mental status with metabolic encephalopathy, resolved. 3. Acute hepatitis with elevated serum transaminases, gradually improving. Hepatitis serologies for A, B and C were negative. 4. Cellulitis of the lower extremity, gradually improving. 5. History of chronic back pain. 6. History of coronary artery disease/status post bypass several years ago. RECOMMENDATIONS: 1. Monitor CBC on a daily basis. 2. Since there is no evidence of active bleeding we will not proceed with any endoscopic intervention at the present time. 3. Obtain iron studies. 4. Continue with broad-spectrum antibiotics for cellulitis. 5. We will follow with you closely. Thank you for this consultation. MMODL / IJN: [id number] /
[2019-09-04 16:50] LABS: Glucose,Whole Blood 301 mg/dL (75-99)
[2019-09-04 20:37] LABS: Glucose,Whole Blood 320 mg/dL (75-99)
[2019-09-05] MEDS: INSULIN ASPART (NovoLOG) 100 UNIT/ML VIAL SQ SCH ×2 (06:20→12:46)
[2019-09-05] MEDS: LEVOTHYROXINE 125 MCG TAB PO SCH (06:25)
[2019-09-05] MEDS: traMADol 50 MG TAB PO PRN ×2 (06:25→14:30)
[2019-09-05 06:36] LABS: Glucose,Whole Blood 122 mg/dL (75-99)
--- NOTE | 2019-09-05 07:25 | XR ---
EXAMINATION TYPE: XR chest 1V DATE OF EXAM: 09/05/2019 HISTORY: CHF. REFERENCE: Previous study dated 08/28/2019. FINDINGS: There has been a midline sternotomy. There is a bipolar pacemaker in place on the right. The heart is enlarged. There is improvement in the degree of pulmonary vascular congestion and pulmon kristin edema. There continues to be a tiny effusion on the left. IMPRESSION: IMPROVING CHANGES OF CONGESTIVE HEART FAILURE.
[2019-09-05 07:45] LABS: Potassium 4.1 mmol/L (3.5-5.1)
[2019-09-05] MEDS: LOSARTAN 50 MG TAB PO SCH (08:37)
[2019-09-05] MEDS: DOCUSATE 100 MG CAP PO SCH (08:38)
[2019-09-05] MEDS: METOPROLOL TARTRATE 25 MG TAB PO SCH (08:38)
[2019-09-05] MEDS: PANTOPRAZOLE 40 MG/10 ML VIAL IVP SCH (08:38)
[2019-09-05] MEDS: PREGABALIN 75 MG CAP PO SCH (08:38)
[2019-09-05] MEDS: ASPIRIN 81 MG PO SCH (08:38)
[2019-09-05] MEDS: ISOSORBIDE MONONITRATE ER 30 MG TAB.ER.24H PO SCH (08:38)
[2019-09-05] MEDS: HEPARIN SODIUM,PORCINE 5,000 UNIT/ML 1 ML VIAL SQ SCH (08:39)
[2019-09-05 10:42] VITALS: BP 124/58; PULSE 74; TEMP 97.6
[2019-09-05 11:30] LABS: Glucose,Whole Blood 196 mg/dL (75-99)
--- NOTE | 2019-09-05 11:33 | CONS ---
CONSULTATION DATE OF DICTATION: September 05, 2019 Patient is a 73-year-old pleasant white female admitted to hospital with lower extremity cellulitis, shortness of breath and altered mental status. The patient is doing much better. Remains on antibiotics for lower extremity cellulitis. We are consulted for anemia and she was seen yesterday. Presently, she is doing well. Hemoglobin remains stable at 7.9 g/dL. She did receive 2 units of blood transfusion during this entire hospitalization. She reports no abdominal pain. No nausea, vomiting. No rectal bleeding or melena. PHYSICAL EXAMINATION: She appears comfortable. No apparent distress. VITAL SIGNS: Stable. Blood pressure is 119/55, pulse rate 73, temperature 97. HEENT examination unremarkable. Conjunctivae pale. Sclerae anicteric. Oral cavity no lesions. Neck: No JVD or lymph node enlargement. The chest was clear to auscultation. HEART: Regular rate and rhythm. ABDOMEN: Soft. Bowel sounds are positive. No organomegaly. EXTREMITIES: No pedal edema. Cellulitis bilateral lower extremities have improved. NEUROLOGIC: Alert and oriented x3. No focal deficits. LABS: No labs available from today. Yesterday, hemoglobin is 7.9. IMPRESSION: 1. Normocytic anemia, probably anemia of chronic disease. Iron studies were requested, not done so far. Stool Hemoccult was positive, but clinically no evidence of active bleeding. Last colonoscopy in [place] 2 years ago was normal according to the patient. Prior to that, she did have colon polyps for which she underwent a partial colon resection. 2. Bilateral lower extremity cellulitis, on antibiotics, improving. 3. Metabolic encephalopathy, resolved. RECOMMENDATIONS: 1. Continue to monitor CBC closely. 2. No plans on any endoscopy intervention at the present time. 3. Await iron studies. 4. Will follow with you closely. Thank you for this consultation. MMODL / IJN: [id number] /
--- NOTE | 2019-09-05 13:19 | P.DS ---
Providers Date of admission: 08/25/19 14:52 Attending physician: Virgil Hdz Consults: 08/25/19 14:35 Consult Physician Routine Consulting Provider: Ella Walters Consult Reason/Comments: AMS Do you want consulting provider notified?: Yes 09/03/19 17:11 Consult Physician Routine Consulting Provider: Abbie Butler Consult Reason/Comments: GI bleed Do you want consulting provider notified?: Yes Primary care physician: Virgil Hdz Hospital Course: 73-year-old female was admitted for cellulitis of the left lower extremity and narcotic-induced severe toxic encephalopathy all of which improved her all the narcotics were dyspnea patient is comparing of severe back pain started on tramadol patient also has diuretic neuropathy for which patient used to take Neurontin which was switched to Lyrica here. Patient was a evaluated extensively by multiple consultants including neurology patient is cleared for discharge. Patient still remains mildly hyponatremic patient is receiving both Bumex and the IV fluids both of which will be discussed uterine Will repeat basic metabolic profile tomorrow if that looks okay patient will be discharged tomorrow. Patient may need a lesser dose of Bumex patient was severely hyponatremic went on admission patient they use to take 1 mg 3 times a day of for Bumex she may need 1 mg dailytwice a day and with close monitoring as an outpatient patient has moderate to severe pulmonary hypertension leading to peripheral edema there is no evidence of systolic or diastolic dysfunction patient was never admitted for with heart failure exacerbation in the past 09/05/2019 Patient did have some pulmonary edema probably chronic diastolic dysfunction which improved now cutting down the Bumex to daily but may need twice a day and cannot really decide on diuretic dosing at this time this may need to be titrated as an outpatient with a follow-up BNP I'll order a outpatient BNP as well as cutting down baclofen dose asked her to avoid opiates. Patient received an of days of antibiotic about 10 days ago and artery believe patient will require any more antibiotics upon discharge. Patient's serum sodium remains stable. PHYSICAL EXAMINATION: GENERAL: The patient is alert and oriented x3, not in any acute distress. Well developed, well nourished. HEENT: Pupils are round and equally reacting to light. EOMI. No scleral icterus. No conjunctival pallor. Normocephalic, atraumatic. No pharyngeal erythema. No thyromegaly. CARDIOVASCULAR: S1 and S2 present. No murmurs, rubs, or gallops. PULMONARY: Chest is clear to auscultation, no wheezing or crackles. ABDOMEN: Soft, nontender, nondistended, normoactive bowel sounds. No palpable organomegaly. MUSCULOSKELETAL: No joint swelling or deformity. EXTREMITIES: No cyanosis, clubbing, or pedal edema. NEUROLOGICAL: Gross neurological examination did not reveal any focal deficits. SKIN: No rashes. Assessment and Plan Plan: -toxic encephalopathy secondary to opiate analgesia which resolved at this time -Left lower extremity cellulitis which improved at this time patient will not require any more antibiotics upon discharge patient received about 10 days of an tibiotics here --acute hepatitis which appears to have improved and liver enzymes remain stable etiology of hepatitis may be drug-induced -Possibility of congestive heart failure chronic diastolic dysfunction with mild acute exacerbation -Acute renal failure which resolved -Chronic low back pain with peripheral neuropathy and diabetic neuropathy -Type 2 diabetes mellitus -Moderate to severe pulmonary hypertensionit is of which patient has bilateral leg edema because of which patient uses Bumex which is being cut down to once a day 1 mg can be up titrated with close monitoring of basic metabolic profile -Hypertension -Hyperlipidemia -Diabetic peripheral neuropathy -Coronary artery disease with CABG in the past Patient Condition at Discharge: Fair Plan - Discharge Summary Discharge Rx Participant: No New Discharge Prescriptions: New Pregabalin [Lyrica] 75 mg PO BID #30 cap Bumetanide [Bumex] 1 mg PO DAILY #30 tablet Continue Levothyroxine Sodium [Synthroid] 125 mcg PO DAILY Insulin NPL/Insulin Lispro [humaLOG MIX 75-25 VIAL] See Protocol SQ AC-TID PRN PRN Reason: HIGH SUGAR Losartan [Cozaar] 50 mg PO DAILY Aspirin EC [Ecotrin Low Dose] 81 mg PO DAILY Insulin NPL/Insulin Lispro [humaLOG MIX 75-25 VIAL] 10 units SQ DAILY@1000,1400 PRN PRN Reason: high blood sugar oxyCODONE-APAP 10-325MG [Percocet 10-325 mg] 1 tab PO Q6H PRN PRN Reason: Pain Atorvastatin [Lipitor] 80 mg PO DAILY #30 tab Metoprolol Tartrate [Lopressor] 25 mg PO BID #60 tab Nitroglycerin Sl Tabs [Nitrostat] 0.4 mg SUBLINGUAL Q5M PRN #50 tab PRN Reason: Chest Pain Isosorbide Mononitrate ER [Imdur] 30 mg PO DAILY #7 tab Gabapentin [Neurontin] 600 mg PO TID #21 tab Pantoprazole Sodium [Protonix] 40 mg PO BID Silver Sulfadiazine 1 applic TOPICAL DAILY Changed Baclofen 10 mg PO BID PRN #10 PRN Reason: Spasms Discontinued Bumetanide [BUMEX] 1 mg PO TID #21 tablet Discharge Medication List Levothyroxine Sodium [Synthroid] 125 mcg PO DAILY 11/27/15 [History] Insulin NPL/Insulin Lispro [humaLOG MIX 75-25 VIAL] See Protocol SQ AC-TID PRN 12/03/16 [History] Aspirin EC [Ecotrin Low Dose] 81 mg PO DAILY 09/09/18 [History] Insulin NPL/Insulin Lispro [humaLOG MIX 75-25 VIAL] 10 units SQ DAILY@1000,1400 PRN 09/09/18 [History] Losartan [Cozaar] 50 mg PO DAILY 09/09/18 [History] oxyCODONE-APAP 10-325MG [Percocet 10-325 mg] 1 tab PO Q6H PRN 01/26/19 [History] Atorvastatin [Lipitor] 80 mg PO DAILY #30 tab 01/27/19 [Rx] Metoprolol Tartrate [Lopressor] 25 mg PO BID #60 tab 01/27/19 [Rx] Nitroglycerin Sl Tabs [Nitrostat] 0.4 mg SUBLINGUAL Q5M PRN #50 tab 01/27/19 [Rx] Gabapentin [Neurontin] 600 mg PO TID #21 tab 02/24/19 [Rx] Isosorbide Mononitrate ER [Imdur] 30 mg PO DAILY #7 tab 02/24/19 [Rx] Pantoprazole Sodium [Protonix] 40 mg PO BID 05/08/19 [History] Silver Sulfadiazine 1 applic TOPICAL DAILY 08/23/19 [History] Baclofen 10 mg PO BID PRN #10 09/05/19 [Rx] Bumetanide [Bumex] 1 mg PO DAILY #30 tablet 09/05/19 [Rx] Pregabalin [Lyrica] 75 mg PO BID #30 cap 09/05/19 [Rx] Follow up Appointment(s)/Referral(s): Virgil Hdz MD [Primary Care Provider] - 1-2 Days (Please call Friday for another appointment with Dr Hdz.) [facility], [NON-STAFF] - (Call when you get home.) Activity/Diet/Wound Care/Special Instructions: [place] Discharge Disposition: HOME WITH HOME HEALTH SERVICES
[2019-09-06 10:20] LABS: Ferritin 49.2 ng/mL (10.0-291.0)
[2019-09-06 11:25] LABS: % Iron Saturation 6.52 (12.00-45.00)
== END 2019-09-05 14:51 | disposition home health service (06) | DRG 91 ==
LOC: EC 18:50 → 6NMEDSUR 21:53 → OBSVTOIN 08-25 14:52 → 3SCARD 08-25 15:19
PROVIDERS: ADMIT Family Medicine; ATTEND Family Medicine
PROC: 30233N1 Transfusion of Nonautologous Red Blood Cells into Peripheral Vein, Percutaneous Approach (ICD-10-PCS; 2019-09-01)
PROC: 05HB33Z Insertion of Infusion Device into Right Basilic Vein, Percutaneous Approach (ICD-10-PCS; principal; 2019-09-03 15:50)
DX: G92 Toxic encephalopathy (principal); J69.0 Pneumonitis due to inhalation of food and vomit; I50.33 Acute on chronic diastolic (congestive) heart failure; L03.116 Cellulitis of left lower limb; F11.20 Opioid dependence, uncomplicated; L03.115 Cellulitis of right lower limb; E87.0 Hyperosmolality and hypernatremia; E87.1 Hypo-osmolality and hyponatremia; N17.9 Acute kidney failure, unspecified; I13.0 Hypertensive heart and chronic kidney disease with heart failure and stage 1 through stage 4 chronic kidney disease, or unspecified chronic kidney disease; I27.20 Pulmonary hypertension, unspecified; K71.2 Toxic liver disease with acute hepatitis; D63.1 Anemia in chronic kidney disease; N18.3 Chronic kidney disease, stage 3 (moderate); E11.22 Type 2 diabetes mellitus with diabetic chronic kidney disease; E11.42 Type 2 diabetes mellitus with diabetic polyneuropathy; Z20.828 Contact with and (suspected) exposure to other viral communicable diseases; I65.23 Occlusion and stenosis of bilateral carotid arteries; R40.2362 Coma scale, best motor response, obeys commands, at arrival to emergency department; R40.2142 Coma scale, eyes open, spontaneous, at arrival to emergency department; R40.2252 Coma scale, best verbal response, oriented, at arrival to emergency department; E87.6 Hypokalemia; I08.8 Other rheumatic multiple valve diseases; I48.0 Paroxysmal atrial fibrillation; G89.29 Other chronic pain; M48.061 Spinal stenosis, lumbar region without neurogenic claudication; I25.10 Atherosclerotic heart disease of native coronary artery without angina pectoris; E78.5 Hyperlipidemia, unspecified; T40.2X5A Adverse effect of other opioids, initial encounter; T42.6X5A Adverse effect of other antiepileptic and sedative-hypnotic drugs, initial encounter; E89.0 Postprocedural hypothyroidism; R32 Unspecified urinary incontinence; R19.5 Other fecal abnormalities; E66.9 Obesity, unspecified; Z68.34 Body mass index [BMI] 34.0-34.9, adult; Z79.82 Long term (current) use of aspirin; Z79.4 Long term (current) use of insulin; Z79.890 Hormone replacement therapy; Z79.899 Other long term (current) drug therapy; Z87.891 Personal history of nicotine dependence; Z71.3 Dietary counseling and surveillance; Z87.39 Personal history of other diseases of the musculoskeletal system and connective tissue; Z90.49 Acquired absence of other specified parts of digestive tract; Z95.1 Presence of aortocoronary bypass graft; Z95.0 Presence of cardiac pacemaker; Z86.19 Personal history of other infectious and parasitic diseases; Z87.19 Personal history of other diseases of the digestive system; Z86.718 Personal history of other venous thrombosis and embolism; Z98.42 Cataract extraction status, left eye; Z98.41 Cataract extraction status, right eye; Z98.890 Other specified postprocedural states; Z80.42 Family history of malignant neoplasm of prostate; Z80.0 Family history of malignant neoplasm of digestive organs; Z83.49 Family history of other endocrine, nutritional and metabolic diseases; Z82.49 Family history of ischemic heart disease and other diseases of the circulatory system; Z83.3 Family history of diabetes mellitus; Z80.8 Family history of malignant neoplasm of other organs or systems; Z82.61 Family history of arthritis; Z83.2 Family history of diseases of the blood and blood-forming organs and certain disorders involving the immune mechanism; Y92.230 Patient room in hospital as the place of occurrence of the external cause
CPT/HCPCS: 36410; 36415; 70450; 71045; 76700; 76937; 80048; 80053; 80074; 80202; 80306; 82140; 82272; 82330; 82607; 82728; 82746; 83036; 83540; 83550; 83735; 83880; 84132; 84439; 84443; 84484; 85025; 85027; 85730; 86850; 86900; 86901; 86920; 87040; 93005; 93880; 95816; 96365; 96366; 96375; 99285

== ENCOUNTER 2019-09-19 15:27 | Emergency (ER) | payer MEDICARE, OTHER ==
[2019-09-19 16:28] VITALS: BP 110/51; PULSE 87; RESP 18; TEMP 97.6
[2019-09-19] MEDS ORDERED: MORPHINE SULFATE 4 MG/ML SYRINGE IM STA (16:37)
[2019-09-19] MEDS ORDERED: DIAZEPAM 5 MG/ML 2 ML INJ IM ONE (17:19)
[2019-09-19] MEDS ORDERED: HYDROmorphone 0.5 MG/0.5 ML SYRINGE IM STA (17:20)
[2019-09-19] MEDS ORDERED: traMADol 50 MG STARTER PACK 3 TAB BTL PO STA (18:12)
--- NOTE | 2019-09-19 18:13 | ED ---
Back Pain HPI - General Chief Complaint: Back Pain/Injury Stated Complaint: Back Pain Time Seen by Provider: 09/19/19 16:27 Source: patient, EMS Limitations: no limitations - History of Present Illness Initial Comments: Patient is a 73-year-old female presenting to the emergency department via EMS with complaints of left sided back pain since this morning. Patient states she has a chronic history of back pain and surgeries and states this pain is her normal flareup She states this feels the same. Patient denies any falls or trauma. She denies any recent fever, chills, abdominal pain, nausea, vomiting, diarrhea. She denies any urinary complaints Patient admits that her doctor recently took her off her pain medication. She has no other complaints at this time. Upon arrival to the ER, her vital signs are stable. - Related Data Home Medications Medication Instructions Recorded Confirmed Levothyroxine Sodium [Synthroid] 125 mcg PO DAILY 11/27/15 08/23/19 Insulin NPL/Insulin Lispro See Protocol SQ AC-TID PRN 12/03/16 08/23/19 [humaLOG MIX 75-25 VIAL] Aspirin EC [Ecotrin Low Dose] 81 mg PO DAILY 09/09/18 08/23/19 Insulin NPL/Insulin Lispro 10 units SQ DAILY@1000,1400 PRN 09/09/18 08/23/19 [humaLOG MIX 75-25 VIAL] Losartan [Cozaar] 50 mg PO DAILY 09/09/18 08/23/19 oxyCODONE-APAP 10-325MG [Percocet 1 tab PO Q6H PRN 01/26/19 08/23/19 10-325 mg] Pantoprazole Sodium [Protonix] 40 mg PO BID 05/08/19 08/23/19 Silver Sulfadiazine 1 applic TOPICAL DAILY 08/23/19 08/23/19 Previous Rx's Medication Instructions Recorded Atorvastatin [Lipitor] 80 mg PO DAILY #30 tab 01/27/19 Metoprolol Tartrate [Lopressor] 25 mg PO BID #60 tab 01/27/19 Nitroglycerin Sl Tabs [Nitrostat] 0.4 mg SUBLINGUAL Q5M PRN #50 tab 01/27/19 Gabapentin [Neurontin] 600 mg PO TID #21 tab 02/24/19 Isosorbide Mononitrate ER [Imdur] 30 mg PO DAILY #7 tab 02/24/19 Baclofen 10 mg PO BID PRN #10 09/05/19 Bumetanide [Bumex] 1 mg PO DAILY #30 tablet 09/05/19 Pregabalin [Lyrica] 75 mg PO BID #30 cap 09/05/19 Allergies Allergy/AdvReac Type Severity Reaction Status Date / Time No Known Allergies Allergy Verified 08/23/19 20:02 Review of Systems ROS Statement: Those systems with pertinent positive or pertinent negative responses have been documented in the HPI. ROS Other: All systems not noted in ROS Statement are negative. Past Medical History Past Medical History: Atrial Fibrillation, Coronary Artery Disease (CAD), Heart Failure, Diabetes Mellitus, Deep Vein Thrombosis (DVT), Hyperlipidemia, Hypertension, Renal Disease, Thyroid Disorder Additional Past Medical History / Comment(s): neuropathy,lupus, back pain, BACK WOUND-Healed, USES CANE , CATARACT bilat. History of Any Multi-Drug Resistant Organisms: VRE Date of last positivie culture/infection: 04/01/16 MDRO Source:: back Past Surgical History: Appendectomy, Back Surgery, Breast Surgery, Cholecystectomy, Coronary Bypass/CABG, Pacemaker Additional Past Surgical History / Comment(s): thyroidectomy. triple bypass 2000, CATARACT bilat EYE 11/2016, LUE dialysis port. 5 back sx. pt had 2 ablations in NH for afib- unsuccessful. Past Anesthesia/Blood Transfusion Reactions: No Reported Reaction Additional Past Anesthesia/Blood Transfusion Reaction / Comment(s): CLAUSTROPHOBIA. HAD A BLOOD TRANSFUSION 1969-NO REACTION. Type of Cardiac Device: Permanent Pacemaker Device Placement Date:: january 2018 Past Psychological History: No Psychological Hx Reported Smoking Status: Former smoker Past Alcohol Use History: None Reported Past Drug Use History: None Reported - Past Family History Father Family Medical History: Cancer Additional Family Medical History / Comment(s): prostate cancer Mother Family Medical History: Cancer, Congestive Heart Failure (CHF), Diabetes Mellitus, Hyperlipidemia, Hypertension, Osteoarthritis (OA) Additional Family Medical History / Comment(s): colon cancer Brother(s) Family Medical History: Coronary Artery Disease (CAD), Deep Vein Thrombosis (DVT) Additional Family Medical History / Comment(s): back surgery Sister(s) Family Medical History: Hyperlipidemia Additional Family Medical History / Comment(s): thyroid cancer General Exam - General Exam Comments Initial Comments: GENERAL: Patient has been crying and moaning in pain since arrival. HEAD: Atraumatic, normocephalic. EYES: Pupils equal round and reactive to light, extraocular movements intact, sclera anicteric, conjunctiva are normal. ENT: TMs normal, nares patent, oropharynx clear without exudates. Moist mucous membranes. NECK: Normal range of motion, supple without lymphadenopathy or JVD. LUNGS: Breath sounds clear to auscultation bilaterally and equal. No wheezes rales or rhonchi. HEART: Regular rate and rhythm without murmurs, rubs or gallops. ABDOMEN: Soft, nontender, normoactive bowel sounds. No guarding, no rebound. No masses appreciated. Pain with palpation of the left lumbar paraspinals. No midline tenderness. No erythema. : Deferred EXTREMITIES: Patient has bilateral lower leg edema and is currently being treated for mild cellulitis. She is neurovascular intact. No clubbing or cyanosis. Strength is 5 out of 5 in lower extremities. Sensation is equal NEUROLOGICAL: Normal speech, normal gait. PSYCH: Normal mood, normal affect. SKIN: Warm, Dry, normal turgor, no rashes or lesions noted. Limitations: no limitations Course Vital Signs 09/19/19 15:48 Temperature 97.6 F Pulse Rate 87 Respiratory 18 Rate Blood Pressure 110/51 O2 Sat by Pulse 98 Oximetry Medical Decision Making - Medical Decision Making Patient is a 73-year-old female here for acute on chronic left-sided back pain. Vitals are stable. Patient denies any falls or additional trauma. She has no neuro deficits today. She admits to recently been taken off her pain medicines. Patient was given pain meds and Valium in the ER. She reports improvement in her symptoms. She is stable for discharge. Patient will follow up with her surgeon. She is in agreement with this plan care. Return parameters were discussed with the patient she verbalized understanding. Disposition Clinical Impression: Chronic low back pain Disposition: HOME SELF-CARE Condition: Stable Instructions (If sedation given, give patient instructions): Acute Low Back Pain (ED) Additional Instructions: Please return to the Emergency Department if symptoms worsen or any other concerns. Follow-up with back surgeon if symptoms persist. Is patient prescribed a controlled substance at d/c from ED?: No Referrals: Virgil Hdz MD [Primary Care Provider] - 1-2 days
== END 2019-09-19 18:16 | disposition home or self-care (01) ==
LOC: EC 15:27
DX: G89.29 Other chronic pain (principal); M54.5 Low back pain; L03.115 Cellulitis of right lower limb; L03.116 Cellulitis of left lower limb; I48.91 Unspecified atrial fibrillation; I25.10 Atherosclerotic heart disease of native coronary artery without angina pectoris; I11.0 Hypertensive heart disease with heart failure; I50.9 Heart failure, unspecified; E11.40 Type 2 diabetes mellitus with diabetic neuropathy, unspecified; E11.36 Type 2 diabetes mellitus with diabetic cataract; H26.9 Unspecified cataract; Z79.4 Long term (current) use of insulin; Z79.82 Long term (current) use of aspirin; Z79.890 Hormone replacement therapy; Z79.899 Other long term (current) drug therapy; Z87.891 Personal history of nicotine dependence; Z95.0 Presence of cardiac pacemaker; Z95.1 Presence of aortocoronary bypass graft; Z86.718 Personal history of other venous thrombosis and embolism
CPT/HCPCS: 99283; 96372 ×3; J2270; J3360; J1170

== ENCOUNTER 2019-09-20 21:37 | Emergency (ER) | payer MEDICARE, OTHER ==
[2019-09-20 21:43] VITALS: RESP 18
[2019-09-20] MEDS ORDERED: SODIUM CHLORIDE 0.9% 1,000 ML IV STA (21:57)
[2019-09-20] MEDS ORDERED: ONDANSETRON 4 MG/2 ML VIAL IVP STA (21:57)
[2019-09-20] MEDS ORDERED: KETOROLAC 30 MG/ML 1 ML VIAL IVP STA (21:57)
[2019-09-20] MEDS ORDERED: HYDROmorphone 1 MG/ML 1 ML SYRINGE IVP STA ×2 (21:57→23:05)
[2019-09-20 22:18] LABS: Anisocytosis Slight; HCT 25.5 % (34.0-46.0); HGB 7.6 gm/dL (11.4-16.0); Hypochromasia Marked; MCH 25.4 pg (25.0-35.0); MCHC 29.7 g/dL (31.0-37.0); MCV 85.4 fL (80.0-100.0); Mean Platelet Volume 10.2; Poikilocytosis Slight; RBC 2.99 m/uL (3.80-5.40); RDW 19.1 % (11.5-15.5); WBC 4.2 k/uL (3.8-10.6)
--- NOTE | 2019-09-20 22:19 | XR ---
EXAMINATION TYPE: XR KUB DATE OF EXAM: 09/20/2019 10:13 PM CLINICAL HISTORY: Right flank pain radiates to umbilicus. TECHNIQUE: Two Upright KUB images of the abdomen are obtained. COMPARISON: CT abdomen and pelvis August 07, 2019. FINDINGS: Scattered gas is seen in non-distended stomach and small bowel loops. Gas and fecal materia l is seen in non-distended colon. Cardiomegaly is redemonstrated. Multilevel spurring and disc space narrowing in the lumbar spine. Punctate density left L5-S1 level corresponds to level of surgical lori nge lower lumbar spine. Narrowing and sclerosis at pubic symphysis redemonstrated. [id number] a xial joint space loss both hips again seen. No pneumoperitoneum. IMPRESSION: Overall nonobstructive bowel gas pattern remains present.
[2019-09-20 22:20] LABS: Platelet Count 242 k/uL (150-450)
[2019-09-20 22:21] LABS: Albumin 3.9 g/dL (3.5-5.0); Calcium 9.1 mg/dL (8.4-10.2); Potassium 4.1 mmol/L (3.5-5.1); Total Protein 7.6 g/dL (6.3-8.2)
[2019-09-20 22:52] LABS: Eosinophils # (M) 0.08 k/uL (0-0.7); Lymphocytes # (M) 1.51 k/uL (1.0-4.8); Monocytes # (M) 0.42 k/uL (0-1.0); Neutrophils # (M) 2.18 k/uL (1.3-7.7); Neutrophils % (M) 52 %; Nucleated Red Blood Cells 0 /100 WBC (0-0); Poikilocytosis (M) Present; Total Cells Counted 100
[2019-09-20 22:53] LABS: RBC Fragments Present
[2019-09-20] MEDS ORDERED: diphenhydrAMINE 50 MG/ML 1 ML VIAL IVP STA (23:06)
--- NOTE | 2019-09-20 23:50 | CT ---
EXAMINATION TYPE: CT abdomen pelvis wo con DATE OF EXAM: 09/20/2019 HISTORY: left flank pain CT DLP: 1032.40 mGycm. Automated Exposure Control for Dose Reduction was Utilized. TECHNIQUE: CT scan of the abdomen and pelvis is performed without oral or IV contrast. COMPARISON: CT abdomen and pelvis August 07, 2019. FINDINGS: Within the limitations of a non-contrast study, the following observations are made. LUNG BASES: Redemonstration of mild cardiomegaly with partial visualization of right-sided pacemaker leads. Calcifications at the level of mitral valve redemonstrated. Coronary artery calcification dist al RCA distribution again seen. LIVER/GB: No significant abnormality is appreciated. PANCREAS: No significant abnormality is seen. SPLEEN: No significant abnormality is seen. ADRENALS: No significant abnormality is seen. KIDNEYS: Cortical thinning both kidneys. No hydronephrosis or obstructing ureter calculi seen bilater ally. BOWEL: Suboptimal evaluation without enteric contrast but no suspicious small or large bowel dilatati on is seen. Stomach is poorly distended and thus suboptimally evaluated.. GENITAL ORGANS: Uterus is surgically absent or markedly atrophic. Scattered pelvic phleboliths are pr esent. Remnant ovaries felt normal in size near axial image 111. LYMPH NODES: No greater than 1cm abdominal or pelvic lymph nodes are appreciated. OSSEOUS STRUCTURES: Fairly moderate multilevel disc space narrowing and multilevel vacuum disc phenom ebcka with postsurgical change in the lower lumbar spine. Posterior decompression noted. OTHER: Some focal soft tissue anterior right mid abdominal wall axial image 63 unchanged from Decembe r 2018 CT study presumed scarring. Some mild additional subcutaneous edema and scattered soft tis yohannes phleboliths noted. Moderate to borderline severe calcified plaque of the aorta extends into branc h vessels. IMPRESSION: No renal stones or hydronephrosis is seen bilaterally. No suspicious new or acute finding noted to account for patient's symptoms on this study.
--- NOTE | 2019-09-20 23:53 | ED ---
Abdominal Pain HPI - General Source: patient Mode of arrival: ambulatory Limitations: no limitations <Suazn Schaeffer - Last Filed: 09/21/19 00:56> <Kevin Mims - Last Filed: 09/21/19 00:58> - General Chief Complaint: Abdominal Pain Stated Complaint: Back Pain Time Seen by Provider: 09/20/19 21:43 - History of Present Illness Initial Comments: 73-year-old female patient presents to the emergency department today for evaluation of increased back pain and left-sided abdominal pain. Patient states that she has been having increased pain for quite some time. Patient states today she has been crying all day. States that she is having normal bowel movements and urination. Denies any fever or chills. States she has been nauseated but has not vomited. She is reporting pain radiating down both legs. Reporting some numbness and tingling to the lower extremities. Did not new symptoms for the patient, states this is consistent with her usual chronic back pain. She denies any saddle anesthesia or loss of bowel or bladder control. Patient does have chronic back pain was seen in the emergency department for this yesterday. Patient states that her physician cut her off of her Neurontin and Percocet she has been out for the last 4 days. Patient denies any recent rash, cough, shortness of breath, chest pain, constipation, back pain, numbness, tingling, dizziness, weakness, hematuria, dysuria, urinary urgency, urinary frequency, headache, visual changes, or any other complaints. (Suzan Schaeffer) - Related Data Home Medications Medication Instructions Recorded Confirmed Levothyroxine Sodium [Synthroid] 125 mcg PO DAILY 11/27/15 08/23/19 Insulin NPL/Insulin Lispro See Protocol SQ AC-TID PRN 12/03/16 08/23/19 [humaLOG MIX 75-25 VIAL] Aspirin EC [Ecotrin Low Dose] 81 mg PO DAILY 09/09/18 08/23/19 Insulin NPL/Insulin Lispro 10 units SQ DAILY@1000,1400 PRN 09/09/18 08/23/19 [humaLOG MIX 75-25 VIAL] Losartan [Cozaar] 50 mg PO DAILY 09/09/18 08/23/19 oxyCODONE-APAP 10-325MG [Percocet 1 tab PO Q6H PRN 01/26/19 08/23/19 10-325 mg] Pantoprazole Sodium [Protonix] 40 mg PO BID 05/08/19 08/23/19 Silver Sulfadiazine 1 applic TOPICAL DAILY 08/23/19 08/23/19 Previous Rx's Medication Instructions Recorded Atorvastatin [Lipitor] 80 mg PO DAILY #30 tab 01/27/19 Metoprolol Tartrate [Lopressor] 25 mg PO BID #60 tab 01/27/19 Nitroglycerin Sl Tabs [Nitrostat] 0.4 mg SUBLINGUAL Q5M PRN #50 tab 01/27/19 Gabapentin [Neurontin] 600 mg PO TID #21 tab 02/24/19 Isosorbide Mononitrate ER [Imdur] 30 mg PO DAILY #7 tab 02/24/19 Baclofen 10 mg PO BID PRN #10 09/05/19 Bumetanide [Bumex] 1 mg PO DAILY #30 tablet 09/05/19 Pregabalin [Lyrica] 75 mg PO BID #30 cap 09/05/19 Allergies Allergy/AdvReac Type Severity Reaction Status Date / Time No Known Allergies Allergy Verified 08/23/19 20:02 Review of Systems ROS Other: All systems not noted in ROS Statement are negative. <Suzan Schaeffer - Last Filed: 09/21/19 00:56> ROS Other: All systems not noted in ROS Statement are negative. <Kevin Mims - Last Filed: 09/21/19 00:58> ROS Statement: Those systems with pertinent positive or pertinent negative responses have been documented in the HPI. Past Medical History Past Medical History: Atrial Fibrillation, Coronary Artery Disease (CAD), Heart Failure, Diabetes Mellitus, Deep Vein Thrombosis (DVT), Hyperlipidemia, Hypertension, Renal Disease, Thyroid Disorder Additional Past Medical History / Comment(s): neuropathy,lupus, back pain, BACK WOUND-Healed, USES CANE , CATARACT bilat. History of Any Multi-Drug Resistant Organisms: VRE Date of last positivie culture/infection: 04/01/16 MDRO Source:: back Past Surgical History: Appendectomy, Back Surgery, Breast Surgery, Cholecystectomy, Coronary Bypass/CABG, Pacemaker Additional Past Surgical History / Comment(s): thyroidectomy. triple bypass 2000, CATARACT bilat EYE 11/2016, LUE dialysis port. 5 back sx. pt had 2 ablations in [place] for afib- unsuccessful. Past Anesthesia/Blood Transfusion Reactions: No Reported Reaction Additional Past Anesthesia/Blood Transfusion Reaction / Comment(s): CLA USTROPHOBIA. HAD A BLOOD TRANSFUSION 1969-NO REACTION. Type of Cardiac Device: Permanent Pacemaker Device Placement Date:: january 2018 Past Psychological History: No Psychological Hx Reported Smoking Status: Former smoker Past Alcohol Use History: None Reported Past Drug Use History: None Reported - Past Family History Father Family Medical History: Cancer Additional Family Medical History / Comment(s): prostate cancer Mother Family Medical History: Cancer, Congestive Heart Failure (CHF), Diabetes Mellitus, Hyperlipidemia, Hypertension, Osteoarthritis (OA) Additional Family Medical History / Comment(s): colon cancer Brother(s) Family Medical History: Coronary Artery Disease (CAD), Deep Vein Thrombosis (DVT) Additional Family Medical History / Comment(s): back surgery Sister(s) Family Medical History: Hyperlipidemia Additional Family Medical History / Comment(s): thyroid cancer <Suzan Schaeffer CarZumer Greyson Filed: 09/21/19 00:56> General Exam Limitations: no limitations General appearance: alert, in no apparent distress, other (This is a well- developed, well-nourished adult female patient in no acute distress. Vital signs upon presentation are temperature 97.6F, pulse 94, respirations 18, blood pressure 149/76, pulse ox 100% on room air.) Eye exam: Present: normal appearance, PERRL, EOMI. Absent: scleral icterus, conjunctival injection, periorbital swelling ENT exam: Present: normal exam, normal oropharynx, mucous membranes moist Respiratory exam: Present: normal lung sounds bilaterally. Absent: respiratory distress, wheezes, rales, rhonchi, stridor Cardiovascular Exam: Present: regular rate, normal rhythm, normal heart sounds. Absent: systolic murmur, diastolic murmur, rubs, gallop, clicks GI/Abdominal exam: Present: soft, tenderness (left sided), normal bowel sounds. Absent: distended, guarding, rebound, rigid Neurological exam: Present: alert, oriented X3, CN II-XII intact Psychiatric exam: Present: normal affect, normal mood Skin exam: Present: warm, dry, intact, normal color. Absent: rash <Suzan Schaeffer - Last Filed: 09/21/19 00:56> Course Vital Signs 09/20/19 09/21/19 09/21/19 21:38 00:14 00:21 Temperature 97.6 F 98 F Pulse Rate 94 69 Respiratory 18 18 Rate Blood Pressure 149/76 119/51 O2 Sat by Pulse 100 99 Oximetry Medical Decision Making - Lab Data Result diagrams: 09/20/19 21:55 09/20/19 21:55 - EKG Data -: EKG Interpreted by [facility] - Radiology Data Radiology results: report reviewed, image reviewed <Suzan Schaeffer - Last Filed: 09/21/19 00:56> - Lab Data Result diagrams: 09/20/19 21:55 09/20/19 21:55 <Kevin Mims - Last Filed: 09/21/19 00:58> - Medical Decision Making 73-year-old female patient presented to the emergency department today for evaluation of increased low back pain radiating into the abdomen. Physical examination does reveal normal neurovascular status. No concerning symptoms for cauda equina. There is some mild left-sided abdominal tenderness. Labs reviewed and are within patient's norms. CT abdomen and pelvis was obtained and shows no acute abnormalities to account for her symptoms. EKG is unremarkable. Patient did receive IV pain medications here. She is resting more comfortably. She is out of her Percocet and gabapentin, she is instructed to contact her physician regarding this. Return parameters were discussed in detail. She verbalizes understanding and agrees with this plan (Suzan Schaeffer) - Lab Data Lab Results 09/20/19 09/20/19 09/20/19 Range/Units 21:55 21:55 21:55 WBC 4.2 (3.8-10.6) k/uL RBC 2.99 L (3.80-5.40) m/uL Hgb 7.6 L (11.4-16.0) gm/dL Hct 25.5 L (34.0-46.0) % MCV 85.4 (80.0-100.0) fL MCH 25.4 (25.0-35.0) pg MCHC 29.7 L (31.0-37.0) g/dL RDW 19.1 H (11.5-15.5) % Plt Count 242 D (150-450) k/uL Neutrophils % (Manual) 52 % Lymphocytes % (Manual) 36 % Monocytes % (Manual) 10 % Eosinophils % (Manual) 2 % Neutrophils # (Manual) 2.18 (1.3-7.7) k/uL Lymphocytes # (Manual) 1.51 (1.0-4.8) k/uL Monocytes # (Manual) 0.42 (0-1.0) k/uL Eosinophils # (Manual) 0.08 (0-0.7) k/uL Nucleated RBCs 0 (0-0) /100 WBC Manual Slide Review Performed Hypochromasia Marked Poikilocytosis Slight Poikilocytosis (manual Present Anisocytosis Slight Fragmented RBCs Present Sodium 136 L (137-145) mmol/L Potassium 4.1 (3.5-5.1) mmol/L Chloride 103 (98-107) mmol/L Carbon Dioxide 22 (22-30) mmol/L Anion Gap 11 mmol/L BUN 43 H (7-17) mg/dL Creatinine 1.38 H (0.52-1.04) mg/dL Est GFR (CKD-EPI)AfAm 43 (>60 ml/min/1.73 sqM) Est GFR (CKD-EPI)NonAf 37 (>60 ml/min/1.73 sqM) Glucose 157 H (74-99) mg/dL Calcium 9.1 (8.4-10.2) mg/dL Total Bilirubin 1.0 (0.2-1.3) mg/dL AST 37 H (14-36) U/L ALT 37 H (4-34) U/L Alkaline Phosphatase 118 (38-126) U/L Troponin I <0.012 (0.000-0.034) ng/mL Total Protein 7.6 (6.3-8.2) g/dL Albumin 3.9 (3.5-5.0) g/dL Amylase 42 (30-110) U/L Lipase 214 (23-300) U/L Urine Color Urine Appearance (Clear) Urine pH (5.0-8.0) Ur Specific [place] (1.001-1.035) Urine Protein (Negative) Urine Glucose (UA) (Negative) Urine Ketones (Negative) Urine Blood (Negative) Urine Nitrite (Negative) Urine Bilirubin (Negative) Urine Urobilinogen (<2.0) mg/dL Ur Leukocyte Esterase (Negative) Urine RBC (0-5) /hpf Urine WBC (0-5) /hpf Ur Squamous Epith Cells (0-4) /hpf Hyaline Casts (0-2) /lpf Urine Mucus (None) /hpf 09/20/19 Range/Units 23:50 WBC (3.8-10.6) k/uL RBC (3.80-5.40) m/uL Hgb (11.4-16.0) gm/dL Hct (34.0-46.0) % MCV (80.0-100.0) fL MCH (25.0-35.0) pg MCHC (31.0-37.0) g/dL RDW (11.5-15.5) % Plt Count (150-450) k/uL Neutrophils % (Manual) % Lymphocytes % (Manual) % Monocytes % (Manual) % Eosinophils % (Manual) % Neutrophils # (Manual) (1.3-7.7) k/uL Lymphocytes # (Manual) (1.0-4.8) k/uL Monocytes # (Manual) (0-1.0) k/uL Eosinophils # (Manual) (0-0.7) k/uL Nucleated RBCs (0-0) /100 WBC Manual Slide Review Hypochromasia Poikilocytosis Poikilocytosis (manual Anisocytosis Fragmented RBCs Sodium (137-145) mmol/L Potassium (3.5-5.1) mmol/L Chloride (98-107) mmol/L Carbon Dioxide (22-30) mmol/L Anion Gap mmol/L BUN (7-17) mg/dL Creatinine (0.52-1.04) mg/dL Est GFR (CKD-EPI)AfAm (>60 ml/min/1.73 sqM) Est GFR (CKD-EPI)NonAf (>60 ml/min/1.73 sqM) Glucose (74-99) mg/dL Calcium (8.4-10.2) mg/dL Total Bilirubin (0.2-1.3) mg/dL AST (14-36) U/L ALT (4-34) U/L Alkaline Phosphatase (38-126) U/L Troponin I (0.000-0.034) ng/mL Total Protein (6.3-8.2) g/dL Albumin (3.5-5.0) g/dL Amylase (30-110) U/L Lipase (23-300) U/L Urine Color Light Yellow Urine Appearance Clear (Clear) Urine pH 5.5 (5.0-8.0) Ur Specific [place] 1.007 (1.001-1.035) Urine Protein Negative (Negative) Urine Glucose (UA) Negative (Negative) Urine Ketones Negative (Negative) Urine Blood Negative (Negative) Urine Nitrite Negative (Negative) Urine Bilirubin Negative (Negative) Urine Urobilinogen <2.0 (<2.0) mg/dL Ur Leukocyte Esterase Moderate H (Negative) Urine RBC 2 (0-5) /hpf Urine WBC 14 H (0-5) /hpf Ur Squamous Epith Cells 3 (0-4) /hpf Hyaline Casts 6 H (0-2) /lpf Urine Mucus Rare H (None) /hpf - EKG Data EKG Comments: EKG obtained at 2238 shows ventricular paced rhythm with a rate of 69, QRS duration 166, QTc 494, QTC 529. (Suzan Schaeffer) - Radiology Data KUB x-ray was obtained. Report was reviewed in its entirety. Impression by Dr. Brown shows overall nonobstructive bowel gas pattern remains present CT abdomen and pelvis is obtained. Report was reviewed in its entirety. Impression by Dr. Brown shows no renal stones or hydronephrosis bilaterally. No suspicious new or acute finding noted to the patient's symptoms on the study. (Suzan Schaeffer) Disposition Is patient prescribed a controlled substance at d/c from ED?: No Time of Disposition: 00:17 <Suzan Schaeffer - Last Filed: 09/21/19 00:56> <Kevin Mims - Last Filed: 09/21/19 00:58> Clinical Impression: Back pain, Abdominal pain Disposition: HOME SELF-CARE Condition: Good Instructions (If sedation given, give patient instructions): Abdominal Pain (ED), Chronic Back Pain (DC) Additional Instructions: Follow up with your primary care physician for recheck in 1-2 days. Discuss getting your pain medication with him. Also discuss MRI if your pain seems to be worsening or persistent beyond the usual. Return to the emergency department for any new, worsening, or concerning symptoms. Referrals: Virgil Hdz MD [Primary Care Provider] - 1-2 days
[2019-09-21 00:09] LABS: Appearance,Urine Clear (Clear); Bilirubin,Urine Negative (Negative); Blood,Urine Negative (Negative); Color,Urine Light Yellow; Glucose,Urine (UA) Negative (Negative); Hyaline Casts,Urine 6 /lpf (0-2); Ketones,Urine Negative (Negative); Leukocyte Esterase,Urine Moderate (Negative); Mucus,Urine Rare /hpf; Nitrite,Urine Negative (Negative); PH, Urine 5.5 (5.0-8.0); Protein,Urine Negative (Negative); RBC,Urine 2 /hpf (0-5); Specific Gravity,Urine 1.007 (1.001-1.035); Squamous Epithelial Cell,Urine 3 /hpf (0-4); Urobilinogen,Urine <2.0 mg/dL (<2.0); WBC,Urine 14 /hpf (0-5)
[2019-09-21 00:14] VITALS: BP 119/51; PULSE 69
[2019-09-21 00:34] VITALS: TEMP 98
== END 2019-09-21 00:21 | disposition home or self-care (01) ==
LOC: EC 21:37
DX: R10.9 Unspecified abdominal pain (principal); M54.5 Low back pain; R11.0 Nausea; R10.819 Abdominal tenderness, unspecified site; I48.91 Unspecified atrial fibrillation; I25.10 Atherosclerotic heart disease of native coronary artery without angina pectoris; I11.0 Hypertensive heart disease with heart failure; I50.9 Heart failure, unspecified; E11.40 Type 2 diabetes mellitus with diabetic neuropathy, unspecified; Z79.890 Hormone replacement therapy; Z79.82 Long term (current) use of aspirin; Z79.4 Long term (current) use of insulin; Z79.899 Other long term (current) drug therapy; Z87.891 Personal history of nicotine dependence; Z95.0 Presence of cardiac pacemaker; Z95.1 Presence of aortocoronary bypass graft; Z86.718 Personal history of other venous thrombosis and embolism
CPT/HCPCS: 99285; 96374; 96375 ×3; 96376; 96361 ×2; 36415; 93005; 80053; 82150; 83690; 84484; 85025; 81001; 87086; 74018; 74176; J1200; J2405; J1885; J1170

== ENCOUNTER 2019-09-21 17:12 | Emergency (ER) | payer MEDICARE, OTHER ==
[2019-09-21 17:23] VITALS: BP 127/67; PULSE 71; RESP 18; TEMP 98
--- NOTE | 2019-09-21 18:14 | ED ---
Fall HPI - General Chief Complaint: Fall Stated Complaint: Fall/Back Pain Time Seen by Provider: 09/21/19 17:49 Source: EMS Mode of arrival: EMS - History of Present Illness Initial Comments: Patient is a 73-year-old female coming to the emergency department via EMS with complaints of falling and increased the back pain. Patient states she went to sit on her commode when her leg gave out a little bit and she fell forward hitting her head. She denies being on blood thinners. She states that is also made her back pain worse. This is patient's third visit in a row for back pain. She was recently cut off from pain medicine and gabapentin. Patient had extensive workup yesterday which was reviewed. Patient denies LOC, vomiting, dizziness, chest pain, shortness of breath. She denies any new abdominal pain. She denies any numbness and tingling into her extremities. She has no other complaints. Prior to arrival to the ER, EMS did administer 4 mg of Zofran and 4 mg of morphine. Her vital signs are stable upon arrival. - Related Data Home Medications Medication Instructions Recorded Confirmed Levothyroxine Sodium [Synthroid] 125 mcg PO DAILY 11/27/15 08/23/19 Insulin NPL/Insulin Lispro See Protocol SQ AC-TID PRN 12/03/16 08/23/19 [humaLOG MIX 75-25 VIAL] Aspirin EC [Ecotrin Low Dose] 81 mg PO DAILY 09/09/18 08/23/19 Insulin NPL/Insulin Lispro 10 units SQ DAILY@1000,1400 PRN 09/09/18 08/23/19 [humaLOG MIX 75-25 VIAL] Losartan [Cozaar] 50 mg PO DAILY 09/09/18 08/23/19 oxyCODONE-APAP 10-325MG [Percocet 1 tab PO Q6H PRN 01/26/19 08/23/19 10-325 mg] Pantoprazole Sodium [Protonix] 40 mg PO BID 05/08/19 08/23/19 Silver Sulfadiazine 1 applic TOPICAL DAILY 08/23/19 08/23/19 Previous Rx's Medication Instructions Recorded Atorvastatin [Lipitor] 80 mg PO DAILY #30 tab 01/27/19 Metoprolol Tartrate [Lopressor] 25 mg PO BID #60 tab 01/27/19 Nitroglycerin Sl Tabs [Nitrostat] 0.4 mg SUBLINGUAL Q5M PRN #50 tab 01/27/19 Gabapentin [Neurontin] 600 mg PO TID #21 tab 02/24/19 Isosorbide Mononitrate ER [Imdur] 30 mg PO DAILY #7 tab 02/24/19 Baclofen 10 mg PO BID PRN #10 09/05/19 Bumetanide [Bumex] 1 mg PO DAILY #30 tablet 09/05/19 Pregabalin [Lyrica] 75 mg PO BID #30 cap 09/05/19 Allergies Allergy/AdvReac Type Severity Reaction Status Date / Time No Known Allergies Allergy Verified 09/21/19 17:23 Review of Systems ROS Statement: Those systems with pertinent positive or pertinent negative responses have been documented in the HPI. ROS Other: All systems not noted in ROS Statement are negative. Past Medical History Past Medical History: Atrial Fibrillation, Coronary Artery Disease (CAD), Heart Failure, Diabetes Mellitus, Deep Vein Thrombosis (DVT), Hyperlipidemia, Hypertension, Renal Disease, Thyroid Disorder Additional Past Medical History / Comment(s): neuropathy,lupus, back pain, BACK WOUND-Healed, USES CANE , CATARACT bilat. History of Any Multi-Drug Resistant Organisms: VRE Date of last positivie culture/infection: 04/01/16 MDRO Source:: back Past Surgical History: Appendectomy, Back Surgery, Breast Surgery, Cholecystectomy, Coronary Bypass/CABG, Pacemaker Additional Past Surgical History / Comment(s): thyroidectomy. triple bypass 07 06, CATARACT bilat EYE 11/2016, LUE dialysis port. 5 back sx. pt had 2 ablations in [place] for afib- unsuccessful. Past Anesthesia/Blood Transfusion Reactions: No Reported Reaction Additional Past Anesthesia/Blood Transfusion Reaction / Comment(s): CLAUSTROPHOBIA. HAD A BLOOD TRANSFUSION 1969-NO REACTION. Type of Cardiac Device: Permanent Pacemaker Device Placement Date:: january 2018 Past Psychological History: No Psychological Hx Reported Smoking Status: Former smoker Past Alcohol Use History: None Reported Past Drug Use History: None Reported - Past Family History Father Family Medical History: Cancer Additional Family Medical History / Comment(s): prostate cancer Mother Family Medical History: Cancer, Congestive Heart Failure (CHF), Diabetes Mellitus, Hyperlipidemia, Hypertension, Osteoarthritis (OA) Additional Family Medical History / Comment(s): colon cancer Brother(s) Family Medical History: Coronary Artery Disease (CAD), Deep Vein Thrombosis (DVT) Additional Family Medical History / Comment(s): back surgery Sister(s) Family Medical History: Hyperlipidemia Additional Family Medical History / Comment(s): thyroid cancer General Exam - General Exam Comments Initial Comments: GENERAL: Patient is crying, disheveled. HEAD: Atraumatic, normocephalic. There are no hematomas. There is no signs of basal skull fracture. EYES: Pupils equal round and reactive to light, extraocular movements intact, sclera anicteric, conjunctiva are normal. ENT: TMs normal, nares patent, oropharynx clear without exudates. Moist mucous membranes. There is no septal hematoma. NECK: Normal range of motion, supple without lymphadenopathy or JVD. LUNGS: Breath sounds clear to auscultation bilaterally and equal. No wheezes rales or rhonchi. HEART: Regular rate and rhythm without murmurs, rubs or gallops. ABDOMEN: Mild left-sided abdominal tenderness. Soft, normoactive bowel sounds. No guarding, no rebound. No masses appreciated. : Deferred EXTREMITIES: Normal range of motion, no pitting or edema. No clubbing or cyanosis. She has 5 out of 5 strength in her lower extremities bilaterally. Sensation is equal and bilateral lower extremities. Pain with palpation of the left side of her low back. NEUROLOGICAL: Cranial nerves II through XII grossly intact. Normal speech, normal gait. PSYCH: Normal mood, normal affect. SKIN: Warm, Dry, normal turgor, no rashes or lesions noted. Limitations: no limitations Course Vital Signs 09/21/19 17:19 Temperature 98.0 F Pulse Rate 71 Respiratory 18 Rate Blood Pressure 127/67 O2 Sat by Pulse 98 Oximetry Medical Decision Making - Medical Decision Making Patient is 73-year-old female here after falling off her commode, hitting her head. There was no LOC, no vomiting. No neuro deficits. This is patient's third visit in a row for her chronic back pain. She was recently cut off of her pain medicine as well as gabapentin. Patient did receive 4 mg of morphine and Zofran in the EMS prior to arrival. CT the head was obtained and shows no acute abnormalities. Patient is stable for discharge. I discussed with patient that we cannot give her any more pain meds. Patient is in agreement this plan of care. She'll follow up with PCP. She is repeatedly asking somebody to "rub her low back." Return parameters were discussed with the patient she verbalized understanding. Case discussed with Dr. Jaime. Disposition Clinical Impression: Fall, Chronic back pain Disposition: HOME SELF-CARE Condition: Stable Instructions (If sedation given, give patient instructions): Fall Prevention for Older Adults (ED) Additional Instructions: Please return to the Emergency Department if symptoms worsen or any other concerns. Follow-up with PCP regarding chronic back pain. Is patient prescribed a controlled substance at d/c from ED?: No Referrals: Virgil Hdz MD [Primary Care Provider] - 1-2 days
--- NOTE | 2019-09-21 18:51 | CT ---
EXAMINATION TYPE: CT brain cspine wo con DATE OF EXAM: 09/21/2019 COMPARISON: CT brain August 25, 2019 HISTORY: Fall injury with headache and neck pain. CT DLP: 1417 mGycm. Automated Exposure Control for Dose Reduction was Utilized. TECHNIQUE: CT scan of the head and cervical spine are performed without contrast. FINDINGS: There is no acute intracranial hemorrhage or midline shift identified. Mild ventricular a nd sulcal prominence. Some low attenuation in the periventricular white matter. The calvarium is int act. The globes are intact and the visualized sinuses are clear. Severe calcified vascular change dis mikel right vertebral and internal carotid arteries bilaterally redemonstrated. Cervical spine is visualized in its entirety from C1 through upper thoracic levels and demonstrates s traightened alignment without evidence of acute fracture or dislocation. Prevertebral soft tissue ap pears within normal limits. The C1-C2 articulation is within normal limits on the coronal images. S light grade 1 anterolisthesis C4 on C5. Vertebral body heights are maintained. Moderate disc space na rrowing C5-C6 level with mild to moderate anterior spurring. Mild to moderate disc space narrowing C6 -C7 level. Spinal canal grossly preserved. Axial images show multilevel uncovertebral facet degenerative changes referenced left C3-C4 and bilat eral C4-C5 levels. Small size right thyroid or residual nodules with absent left thyroid lobe. Partia l visualization of right-sided pacemaker wires and sternotomy/sternal wires. Lung apices show no pneu mothorax. IMPRESSION: 1. There is no acute fracture or dislocation evident in the cervical spine. 2. No acute intracranial hemorrhage or midline shift is seen.
== END 2019-09-21 19:36 | disposition home or self-care (01) ==
LOC: EC 17:12
DX: G89.29 Other chronic pain (principal); M54.5 Low back pain; S09.90XA Unspecified injury of head, initial encounter; I48.91 Unspecified atrial fibrillation; I25.10 Atherosclerotic heart disease of native coronary artery without angina pectoris; I11.0 Hypertensive heart disease with heart failure; I50.9 Heart failure, unspecified; E11.9 Type 2 diabetes mellitus without complications; E07.9 Disorder of thyroid, unspecified; E11.40 Type 2 diabetes mellitus with diabetic neuropathy, unspecified; Z79.890 Hormone replacement therapy; Z79.4 Long term (current) use of insulin; Z79.82 Long term (current) use of aspirin; Z79.899 Other long term (current) drug therapy; Z87.891 Personal history of nicotine dependence; Z99.89 Dependence on other enabling machines and devices; Z95.1 Presence of aortocoronary bypass graft; Z95.0 Presence of cardiac pacemaker; Z90.89 Acquired absence of other organs; W18.11XA Fall from or off toilet without subsequent striking against object, initial encounter; Y92.008 Other place in unspecified non-institutional (private) residence as the place of occurrence of the external cause
CPT/HCPCS: 70450; 72125; 99284

== ENCOUNTER 2019-10-01 11:24 | Inpatient (IN) | payer MEDICARE, OTHER ==
--- NOTE | 2019-10-01 12:27 | XR ---
EXAMINATION TYPE: XR chest 2V DATE OF EXAM: 10/01/2019 COMPARISON: Chest x-ray September 05, 2019. CTA chest September 30, 2018. HISTORY: Difficulty in breathing. TECHNIQUE: Frontal and lateral views of the chest are obtained. FINDINGS: Redemonstration of overlying sternal wires mediastinal clips and breaking of the superior 3 sternal wires. There is chronic parenchymal changes bilaterally without suspicious focal air space opacity, pleural effusion, or pneumothorax seen. The cardiac silhouette size remains enlarged with d ual lead pacemaker and atherosclerotic aorta. New mild to moderate central vascular congestion felt p resent. Bilateral hilar prominence corresponds to enlarged pulmonary arteries consistent with product of underlying pulmonary hypertension. The osseous structures are demineralized. Additional Anterior epicardial pacer wires noted on lateral view. IMPRESSION: Suspect CHF exacerbation as there is cardiomegaly with mild to moderate central vascular congestion now identified.
[2019-10-01 12:35] LABS: Anisocytosis Slight; HCT 21.9 % (34.0-46.0); Hypochromasia Marked; MCH 24.1 pg (25.0-35.0); MCHC 29.2 g/dL (31.0-37.0); MCV 82.4 fL (80.0-100.0); Mean Platelet Volume 8.8; Microcytosis Slight; Platelet Count 128 k/uL (150-450); Poikilocytosis Moderate; RBC 2.66 m/uL (3.80-5.40); RDW 18.8 % (11.5-15.5); WBC 4.4 k/uL (3.8-10.6)
[2019-10-01 12:41] LABS: Albumin 3.6 g/dL (3.5-5.0); Calcium 7.7 mg/dL (8.4-10.2); Magnesium 1.8 mg/dL (1.6-2.3); Potassium 4.1 mmol/L (3.5-5.1); Total Bilirubin 1.4 mg/dL (0.2-1.3); Total Protein 7.1 g/dL (6.3-8.2)
[2019-10-01 12:42] LABS: HGB 6.4 gm/dL (11.4-16.0)
[2019-10-01 12:44] LABS: INR 1.2 (<1.2); Partial Thromboplastin Time 28.4 sec (22.0-30.0); Prothrombin Time 12.3 sec (9.0-12.0)
[2019-10-01 12:47] LABS: D-Dimer 1.4 mg/L FEU (<0.60)
[2019-10-01] MEDS ORDERED: FUROSEMIDE 10 MG/ML 4 ML VIAL IV STA (12:51)
[2019-10-01 12:55] LABS: Eosinophils # (M) 0.09 k/uL (0-0.7); Lymphocytes # (M) 0.79 k/uL (1.0-4.8); Monocytes # (M) 0.53 k/uL (0-1.0); Neutrophils # (M) 3.04 k/uL (1.3-7.7); Neutrophils % (M) 69 %; Nucleated Red Blood Cells 1 /100 WBC (0-0); Total Cells Counted 200
[2019-10-01] MEDS ORDERED: NALOXONE 0.4 MG/ML 1 ML VIAL IV PRN (13:00)
[2019-10-01] MEDS ORDERED: HYDROcodone/APAP 10-325MG 1 EACH TAB PO ONE (13:01)
--- NOTE | 2019-10-01 13:10 | ED ---
SOB HPI <Ruddy Guerrero - Last Filed: 10/01/19 13:33> - General Source: patient Mode of arrival: wheelchair Limitations: no limitations <Trudi Masters - Last Filed: 10/01/19 14:03> - General Chief Complaint: Shortness of Breath Stated Complaint: SOB, back pain Time Seen by Provider: 10/01/19 11:31 - History of Present Illness Initial Comments: 73-year-old female presenting for shortness of breath x few days. Patient states she has had increasing shortness of breath over the past few days. Patient states she has noticed that her legs are swelling as well. Patient denies any cough or fevers. Patient denies any melena or hematochezia. Patient denies any abdominal pain. Patient states that she has some back pains denies any chest pain denies any pain with inspiration or hemoptysis. Patient states she has struggled with anemia and has had to have frequent blood transfusions. Patient denies nausea, vomiting, diarrhea. Patient states she has her chronic low back pain. Patient has no additional complaints. Upon arrival patient is hypoxic and slightly tachypneic. Obviously fluid overloaded. (Trudi Masters) - Related Data Home Medications Medication Instructions Recorded Confirmed Levothyroxine Sodium [Synthroid] 125 mcg PO DAILY 11/27/15 08/23/19 Insulin NPL/Insulin Lispro See Protocol SQ AC-TID PRN 12/03/16 08/23/19 [humaLOG MIX 75-25 VIAL] Aspirin EC [Ecotrin Low Dose] 81 mg PO DAILY 09/09/18 08/23/19 Insulin NPL/Insulin Lispro 10 units SQ DAILY@1000,1400 PRN 09/09/18 08/23/19 [humaLOG MIX 75-25 VIAL] Losartan [Cozaar] 50 mg PO DAILY 09/09/18 08/23/19 oxyCODONE-APAP 10-325MG [Percocet 1 tab PO Q6H PRN 01/26/19 08/23/19 10-325 mg] Pantoprazole Sodium [Protonix] 40 mg PO BID 05/08/19 08/23/19 Silver Sulfadiazine 1 applic TOPICAL DAILY 08/23/19 08/23/19 Previous Rx's Medication Instructions Recorded Atorvastatin [Lipitor] 80 mg PO DAILY #30 tab 01/27/19 Metoprolol Tartrate [Lopressor] 25 mg PO BID #60 tab 01/27/19 Nitroglycerin Sl Tabs [Nitrostat] 0.4 mg SUBLINGUAL Q5M PRN #50 tab 01/27/19 Gabapentin [Neurontin] 600 mg PO TID #21 tab 02/24/19 Isosorbide Mononitrate ER [Imdur] 30 mg PO DAILY #7 tab 02/24/19 Baclofen 10 mg PO BID PRN #10 09/05/19 Bumetanide [Bumex] 1 mg PO DAILY #30 tablet 09/05/19 Pregabalin [Lyrica] 75 mg PO BID #30 cap 09/05/19 Allergies Allergy/AdvReac Type Severity Reaction Status Date / Time No Known Allergies Allergy Verified 10/01/19 11:45 Review of Systems ROS Other: All systems not noted in ROS Statement are negative. <Ruddy Guerrero - Last Filed: 10/01/19 13:33> ROS Other: All systems not noted in ROS Statement are negative. <Trudi Masters - Last Filed: 10/01/19 14:03> ROS Statement: Those systems with pertinent positive or pertinent negative responses have been documented in the HPI. Past Medical History Past Medical History: Atrial Fibrillation, Coronary Artery Disease (CAD), Heart Failure, Diabetes Mellitus, Deep Vein Thrombosis (DVT), Hyperlipidemia, Hypertension, Renal Disease, Thyroid Disorder Additional Past Medical History / Comment(s): neuropathy,lupus, back pain, BACK WOUND-Healed, USES CANE , CATARACT bilat. History of Any Multi-Drug Resistant Organisms: VRE Date of last positivie culture/infection: 04/01/16 MDRO Source:: back Past Surgical History: Appendectomy, Back Surgery, Breast Surgery, Cholecystectomy, Coronary Bypass/CABG, Pacemaker Additional Past Surgical History / Comment(s): thyroidectomy. triple bypass 2000, CATARACT bilat EYE 11/2016, LUE dialysis port. 5 back sx. pt had 2 ablations in [place] for afib- unsuccessful. Past Anesthesia/Blood Transfusion Reactions: No Reported Reaction Additional Past Anesthesia/Blood Transfusion Reaction / Comment(s): CLAUSTROPHOB [place]. HAD A BLOOD TRANSFUSION 1968-NO REACTION. Type of Cardiac Device: Permanent Pacemaker Device Placement Date:: january 2018 Past Psychological History: No Psychological Hx Reported Smoking Status: Former smoker Past Alcohol Use History: None Reported Past Drug Use History: None Reported - Past Family History Father Family Medical History: Cancer Additional Family Medical History / Comment(s): prostate cancer Mother Family Medical History: Cancer, Congestive Heart Failure (CHF), Diabetes Mellitus, Hyperlipidemia, Hypertension, Osteoarthritis (OA) Additional Family Medical History / Comment(s): colon cancer Brother(s) Family Medical History: Coronary Artery Disease (CAD), Deep Vein Thrombosis (DVT) Additional Family Medical History / Comment(s): back surgery Sister(s) Family Medical History: Hyperlipidemia Additional Family Medical History / Comment(s): thyroid cancer <Trudi Masters - Last Filed: 10/01/19 14:03> General Exam Limitations: no limitations <Trudi Masters - Last Filed: 10/01/19 14:03> - General Exam Comments Initial Comments: General: The patient is awake and alert Eye: +3 mm pupils are equal, round and reactive to light, extra-ocular movements are intact. No nystagmus. There is normal conjunctiva bilaterally. No signs of icterus. Ears, nose, mouth and throat: There are moist mucous membranes and no oral lesions. Neck: The neck is supple, there is no tenderness or JVD. Cardiovascular: There is a regular rate and rhythm. No murmur, rub or gallop is appreciated. Respiratory: Lungs sounds diminished, respirations are mildly-labored, breath sounds are equal. Some rales noted, no rhonchi or wheeze.. Gastrointestinal: Soft, non-distended, non-tender abdomen without masses or organomegaly noted. There is no rebound or guarding present Musculoskeletal: Normal ROM, no tenderness. Strength 5/5. Sensation intact. Radial pulses equal bilaterally 2+. Neurological: A&O x 3. CN II-XII intact grossly, There are no obvious motor or sensory deficits. Coordination appears grossly intact. Speech is normal. Skin: Skin is warm and dry and no rashes or lesions are noted. B/l LE edema Psychiatric: Cooperative, appropriate mood & affect, normal judgment. (Trudi Masters) Course Vital Signs 10/01/19 10/01/19 10/01/19 11:30 12:30 13:00 Temperature 97.9 F Pulse Rate 88 78 86 Respiratory 26 H 26 H 26 H Rate Blood Pressure 118/61 102/56 115/57 O2 Sat by Pulse 92 L 95 100 Oximetry Medical Decision Making - Lab Data Result diagrams: 10/01/19 12:00 10/01/19 12:00 <Ruddy Guerrero - Last Filed: 10/01/19 13:33> - Lab Data Result diagrams: 10/01/19 12:00 10/01/19 12:00 <Trudi Masters - Last Filed: 10/01/19 14:03> - Medical Decision Making Patient reevaluated and reexamined by myself, Dr. Guerrero. Patient resting operably in bed. Lungs with mild wheezing/rales. I do agree with the pharynx. This includes diagnostic and patient treatment plan. X-ray reviewed. Labs reviewed. Case was discussed in detail with Dr. Hdz, who will admit his patient. Patient will be provided blood transfusion. Consult placed for cardiology. (Ruddy Guerrero) 73-year-old female presenting today for chief complaint of shortness of breath. Patient appears fluid overloaded consistent with most likely CHF exacerbation given history. There is interstitial findings consistent with a CHF picture. Patient troponin (-). Patient BNP elevated. Patient Dimer elevated; inpatient VQ pending. Patient given IV lasix, takes TID lasix at home. Patient is also found to be anemic, denies bloody/dark stools. Anemia appears consistent recently (past month) multiple transfusions. Patient type and screened, transfusion ordered while patient in ER. Patient will be admitted for CHF excerbation as well as enemia. I feel these findings are consistent with clinical findings and cause of SOB at this time. Dr. Guerrero who evaluated patinet (Trudi Masters) - Lab Data Lab Results 10/01/19 10/01/19 10/01/19 Range/Units 12:00 12:00 12:00 WBC 4.4 (3.8-10.6) k/uL RBC 2.66 L (3.80-5.40) m/uL Hgb 6.4 L* (11.4-16.0) gm/dL Hct 21.9 L (34.0-46.0) % MCV 82.4 (80.0-100.0) fL MCH 24.1 L (25.0-35.0) pg MCHC 29.2 L (31.0-37.0) g/dL RDW 18.8 H (11.5-15.5) % Plt Count 128 L (150-450) k/uL Neutrophils % (Manual) 69 % Lymphocytes % (Manual) 18 % Monocytes % (Manual) 12 % Eosinophils % (Manual) 2 % Neutrophils # (Manual) 3.04 (1.3-7.7) k/uL Lymphocytes # (Manual) 0.79 L (1.0-4.8) k/uL Monocytes # (Manual) 0.53 (0-1.0) k/uL Eosinophils # (Manual) 0.09 (0-0.7) k/uL Nucleated RBCs 1 H (0-0) /100 WBC Manual Slide Review Performed Hypochromasia Marked Poikilocytosis Moderate Anisocytosis Slight Microcytosis Slight PT 12.3 H (9.0-12.0) sec INR 1.2 H (<1.2) APTT 28.4 (22.0-30.0) sec D-Dimer 1.40 H (<0.60) mg/L FEU Sodium 135 L (137-145) mmol/L Potassium 4.1 (3.5-5.1) mmol/L Chloride 102 (98-107) mmol/L Carbon Dioxide 22 (22-30) mmol/L Anion Gap 11 mmol/L BUN 35 H (7-17) mg/dL Creatinine 1.62 H (0.52-1.04) mg/dL Est GFR (CKD-EPI)AfAm 36 (>60 ml/min/1.73 sqM) Est GFR (CKD-EPI)NonAf 31 (>60 ml/min/1.73 sqM) Glucose 156 H (74-99) mg/dL Plasma Lactic Acid Young (0.7-2.0) mmol/L Calcium 7.7 L (8.4-10.2) mg/dL Magnesium 1.8 (1.6-2.3) mg/dL Total Bilirubin 1.4 H (0.2-1.3) mg/dL AST 34 (14-36) U/L ALT 21 (4-34) U/L Alkaline Phosphatase 148 H (38-126) U/L Troponin I (0.000-0.034) ng/mL NT-Pro-B Natriuret Pep pg/mL Total Protein 7.1 (6.3-8.2) g/dL Albumin 3.6 (3.5-5.0) g/dL Stool Occult Blood (Negative) Blood Type Blood Type Recheck Bld Type Recheck Status Antibody Screen Spec Expiration Date 10/01/19 10/01/19 10/01/19 Range/Units 12:00 12:00 12:00 WBC (3.8-10.6) k/uL RBC (3.80-5.40) m/uL Hgb (11.4-16.0) gm/dL Hct (34.0-46.0) % MCV (80.0-100.0) fL MCH (25.0-35.0) pg MCHC (31.0-37.0) g/dL RDW (11.5-15.5) % Plt Count (150-450) k/uL Neutrophils % (Manual) % Lymphocytes % (Manual) % Monocytes % (Manual) % Eosinophils % (Manual) % Neutrophils # (Manual) (1.3-7.7) k/uL Lymphocytes # (Manual) (1.0-4.8) k/uL Monocytes # (Manual) (0-1.0) k/uL Eosinophils # (Manual) (0-0.7) k/uL Nucleated RBCs (0-0) /100 WBC Manual Slide Review Hypochromasia Poikilocytosis Anisocytosis Microcytosis PT (9.0-12.0) sec INR (<1.2) APTT (22.0-30.0) sec D-Dimer (<0.60) mg/L FEU Sodium (137-145) mmol/L Potassium (3.5-5.1) mmol/L Chloride (98-107) mmol/L Carbon Dioxide (22-30) mmol/L Anion Gap mmol/L BUN (7-17) mg/dL Creatinine (0.52-1.04) mg/dL Est GFR (CKD-EPI)AfAm (>60 ml/min/1.73 sqM) Est GFR (CKD-EPI)NonAf (>60 ml/min/1.73 sqM) Glucose (74-99) mg/dL Plasma Lactic Acid Young 1.5 (0.7-2.0) mmol/L Calcium (8.4-10.2) mg/dL Magnesium (1.6-2.3) mg/dL Total Bilirubin (0.2-1.3) mg/dL AST (14-36) U/L ALT (4-34) U/L Alkaline Phosphatase (38-126) U/L Troponin I 0.018 (0.000-0.034) ng/mL NT-Pro-B Natriuret Pep 3660 pg/mL Total Protein (6.3-8.2) g/dL Albumin (3.5-5.0) g/dL Stool Occult Blood (Negative) Blood Type Blood Type Recheck Bld Type Recheck Status Antibody Screen Spec Expiration Date 10/01/19 10/01/19 Range/Units 12:00 13:30 WBC (3.8-10.6) k/uL RBC (3.80-5.40) m/uL Hgb (11.4-16.0) gm/dL Hct (34.0-46.0) % MCV (80.0-100.0) fL MCH (25.0-35.0) pg MCHC (31.0-37.0) g/dL RDW (11.5-15.5) % Plt Count (150-450) k/uL Neutrophils % (Manual) % Lymphocytes % (Manual) % Monocytes % (Manual) % Eosinophils % (Manual) % Neutrophils # (Manual) (1.3-7.7) k/uL Lymphocytes # (Manual) (1.0-4.8) k/uL Monocytes # (Manual) (0-1.0) k/uL Eosinophils # (Manual) (0-0.7) k/uL Nucleated RBCs (0-0) /100 WBC Manual Slide Review Hypochromasia Poikilocytosis Anisocytosis Microcytosis PT (9.0-12.0) sec INR (<1.2) APTT (22.0-30.0) sec D-Dimer (<0.60) mg/L FEU Sodium (137-145) mmol/L Potassium (3.5-5.1) mmol/L Chloride (98-107) mmol/L Carbon Dioxide (22-30) mmol/L Anion Gap mmol/L BUN (7-17) mg/dL Creatinine (0.52-1.04) mg/dL Est GFR (CKD-EPI)AfAm (>60 ml/min/1.73 sqM) Est GFR (CKD-EPI)NonAf (>60 ml/min/1.73 sqM) Glucose (74-99) mg/dL Plasma Lactic Acid Young (0.7-2.0) mmol/L Calcium (8.4-10.2) mg/dL Magnesium (1.6-2.3) mg/dL Total Bilirubin (0.2-1.3) mg/dL AST (14-36) U/L ALT (4-34) U/L Alkaline Phosphatase (38-126) U/L Troponin I (0.000-0.034) ng/mL NT-Pro-B Natriuret Pep pg/mL Total Protein (6.3-8.2) g/dL Albumin (3.5-5.0) g/dL Stool Occult Blood Negative (Negative) Blood Type B Positive Blood Type Recheck B Pos Bld Type Recheck Status No Antibody Screen NEGATIVE Spec Expiration Date 10/04/2019 - 230 Disposition <Ruddy Guerrero - Last Filed: 10/01/19 13:33> Is patient prescribed a controlled substance at d/c from ED?: No Time of Disposition: 13:09 Decision to Admit Reason: Admit from EC Decision Date: 10/01/19 Decision Time: 13:10 <Trudi Masters - Last Filed: 10/01/19 14:03> Clinical Impression: CHF exacerbation, Dyspnea, Anemia, Back pain Disposition: ADMITTED IP TO THIS [facility] Condition: Serious Referrals: Virgil Hdz MD [Primary Care Provider] - 1-2 days
[2019-10-01] MEDS ORDERED: CALCIUM GLUCONATE 1 GM in SODIUM CHLORIDE 0.9% 100 ML IVPB ONE (14:00)
[2019-10-01 14:33] LABS: Appearance,Urine Clear (Clear); Bilirubin,Urine Negative (Negative); Blood,Urine Negative (Negative); Color,Urine Yellow; Glucose,Urine (UA) Negative (Negative); Ketones,Urine Negative (Negative); Leukocyte Esterase,Urine Negative (Negative); Nitrite,Urine Negative (Negative); PH, Urine 5.5 (5.0-8.0); Protein,Urine Trace (Negative); Specific Gravity,Urine 1.007 (1.001-1.035); Urobilinogen,Urine <2.0 mg/dL (<2.0)
--- NOTE | 2019-10-01 15:20 | NM ---
EXAMINATION TYPE: NM pul vent and perfuse DATE OF EXAM: 10/01/2019 COMPARISON: NONE HISTORY: Shortness of breath TECHNIQUE: Utilizing inhalation of 35 mCi Tc 99m DTPA aerosol and intravenous injection of 5.2 mCi o f Tc 99m MAA, ventilation and perfusion images are acquired post injection in multiple projections. FINDINGS: Central distribution radiotracer compatible with COPD. Matched Defect left midlung zone and left lower lobe. No evidence for perfusion mismatch. IMPRESSION: Low Probability for pulmonary embolism.
[2019-10-01 16:28] LABS: Glucose,Whole Blood 155 mg/dL (75-99)
[2019-10-01] MEDS ORDERED: NITROGLYCERIN SL TABS 0.4 MG TAB SUBLINGUAL PRN (17:43)
[2019-10-01] MEDS: LOSARTAN 50 MG TAB PO SCH (17:57)
[2019-10-01] MEDS: LEVOTHYROXINE 125 MCG TAB PO SCH (17:57)
[2019-10-01] MEDS: INSULN ASP PRT/INSULIN ASPART 100 UNIT/ML 10 ML VIAL SQ SCH (18:02)
[2019-10-01 18:20] LABS: Anisocytosis Slight; HCT 22.4 % (34.0-46.0); Hypochromasia Marked; MCH 25.4 pg (25.0-35.0); MCHC 30.1 g/dL (31.0-37.0); MCV 84.2 fL (80.0-100.0); Mean Platelet Volume 10.8; Microcytosis Slight; Platelet Count 133 k/uL (150-450); Poikilocytosis Moderate; RBC 2.66 m/uL (3.80-5.40); RDW 18.8 % (11.5-15.5); WBC 3.5 k/uL (3.8-10.6)
[2019-10-01 18:22] LABS: HGB 6.7 gm/dL (11.4-16.0)
[2019-10-01 19:38] LABS: Anisocytosis (M) Present; Eosinophils # (M) 0.04 k/uL (0-0.7); Lymphocytes # (M) 0.77 k/uL (1.0-4.8); Monocytes # (M) 0.18 k/uL (0-1.0); Neutrophils # (M) 2.52 k/uL (1.3-7.7); Neutrophils % (M) 72 %; Nucleated Red Blood Cells 0 /100 WBC (0-0); Polychromasia Present; Target Cells Present; Total Cells Counted 100
[2019-10-01 19:39] LABS: Poikilocytosis (M) Present
[2019-10-01 20:22] LABS: Glucose,Whole Blood 228 mg/dL (75-99)
[2019-10-01] MEDS: PREGABALIN 50 MG CAP PO SCH (22:00)
[2019-10-01] MEDS: AMOXIC-POT CLAV 875-125MG 1 EACH TAB PO SCH (22:00)
[2019-10-01] MEDS: METOPROLOL TARTRATE 25 MG TAB PO SCH (22:00)
[2019-10-01] MEDS: FUROSEMIDE 10 MG/ML 4 ML VIAL IV SCH (22:00)
[2019-10-01] MEDS: PANTOPRAZOLE 40 MG TABLET PO SCH (22:01)
[2019-10-02] MEDS: LEVOTHYROXINE 125 MCG TAB PO SCH (06:15)
[2019-10-02 06:45] LABS: Glucose,Whole Blood 119 mg/dL (75-99)
[2019-10-02] MEDS: FUROSEMIDE 10 MG/ML 4 ML VIAL IV SCH ×2 (08:03→21:35)
[2019-10-02] MEDS: PANTOPRAZOLE 40 MG TABLET PO SCH ×2 (08:03→18:13)
[2019-10-02] MEDS: PREGABALIN 50 MG CAP PO SCH ×3 (08:03→21:35)
[2019-10-02] MEDS: LOSARTAN 50 MG TAB PO SCH (08:03)
[2019-10-02] MEDS: ISOSORBIDE MONONITRATE ER 30 MG TAB.ER.24H PO SCH (08:04)
[2019-10-02] MEDS: INSULN ASP PRT/INSULIN ASPART 100 UNIT/ML 10 ML VIAL SQ SCH ×2 (08:04→18:13)
[2019-10-02] MEDS: ATORVASTATIN 80 MG TAB PO SCH (08:04)
[2019-10-02] MEDS: METOPROLOL TARTRATE 25 MG TAB PO SCH ×2 (08:04→21:34)
[2019-10-02 08:39] LABS: Anisocytosis Slight; HCT 25.7 % (34.0-46.0); HGB 7.6 gm/dL (11.4-16.0); Hypochromasia Marked; MCH 25.2 pg (25.0-35.0); MCHC 29.4 g/dL (31.0-37.0); MCV 85.5 fL (80.0-100.0); Mean Platelet Volume 8.3; Platelet Count 115 k/uL (150-450); Poikilocytosis Marked; RDW 18.3 % (11.5-15.5); WBC 4.5 k/uL (3.8-10.6)
[2019-10-02] MEDS: AMOXIC-POT CLAV 875-125MG 1 EACH TAB PO SCH ×2 (09:19→21:34)
[2019-10-02 11:37] LABS: Glucose,Whole Blood 191 mg/dL (75-99)
--- NOTE | 2019-10-02 12:43 | P.CRDCN ---
History of Present Illness Consult date: 10/02/19 Reason for Consult (text): CHF exacerbation, shortness of breath, anemia Consult reason: congestive heart failure History of present illness: This is a 73-year-old female patient follows with Dr. Brewster with history of c oronary artery disease with triple vessel CABG in 2000, permanent pacemaker implantation and history of atrial fibrillation with previous ablations, history of renal failure requiring hemodialysis in the past, hypertension, diabetes mellitus type 2, hyperlipidemia, hypothyroidism. She does have a fistula in the left arm. Patient came into the hospital complaining of shortness of breath and difficulty taking a deep breath. She is normally on Bumex 1 mg 3 times daily. She states she has a follow-up with Dr. Brewster recently. At the time of this evaluation, she states her breathing is improved. She denies having any lower extremity edema. She denies any cough or fever. Initial vital signs with blood pressure 116/76, heart rate 60s to 70s and pulse ox 95% on room air. Hemoglobin 6.7 with stool for occult blood negative. D-dimer 1.4 and VQ scan low probability for pulmonary embolism. EKG is atrial fibrillation with rate controlled at 88 bpm. Chest x-ray shows CHF exacerbation. Pro BNP 3660, troponin 0.018. BUN 35 and creatinine 1.62. Patient was started on Lasix 40 mg IV every 12 hours and admitted to the cardiac stepdown unit. Her last echocardiogram in April 2016 revealed EF of 55-60%, mild mitral regurgitation, moderate tricuspid regurgitation, moderate to severe pulmonary hypertension, moderate pulmonary regurgitation. Patient had a recent hospitalization in August of this year for cellulitis of the lower extremity, narcotic induced toxic encephalopathy and anemia requiring 2 units of packed RBCs. Patient was seen by Dr. Mele Butler thought to be multifactorial anemia with no active GI bleed as well as noted to have acute hepatitis Review Of Systems: Constitutional: No fever, no chills, no night sweats. No weight change. No weakness, fatigue or lethargy. No daytime sleepiness. EENT: No headache. No blurred vision or double vision, no loss of vision. No loss of Hearing, no ringing in the ears, no dizziness. No nasal drainage or congestion. No epistaxis. No sore throat. Lungs: Reports shortness of breath, no cough, no sputum production. No whe ezing. Reports difficulty taking a deep breath. Cardiovascular: No chest pain, no lower extremity edema. No palpitations. No paroxysmal nocturnal dyspnea. No orthopnea. No lightheadedness or dizziness. No syncopal episodes. Abdominal: No abdominal pain. No nausea, vomiting. No diarrhea. No constipation. No bloody or tarry stools.. No loss of appetite. Genitourinary: No dysuria, increased frequency, urgency. No urinary retention. Musculoskeletal: No myalgias. No muscle weakness, no gait dysfunction, no frequent falls. No back pain. No neck pain. Integumentary: No wounds, no lesions. No rash or pruritus. No unusual bruising. No change in hair or nails. Neurologic: No aphasia. No facial droop. No change in mentation. No head injury. No headache. No paralysis. No paresthesia. Psychiatric: No depression. No anxiety. No mood swings. Endocrine: No abnormal blood sugars. No weight change. No excessive sweating or thirst. No cold intolerance. No weight change. Physical examination: Gen: This is a 73-year-old female. Patient is resting in bed and appears to be comfortable at time of evaluation. VS: Afebrile, heart rate 98, blood pressure 134/61, pulse ox 90% on room air HEENT: Head is atraumatic, normocephalic. Pupils equal, round. Sclerae is anicteric. NECK: Supple. No JVD. No lymphadenopathy. No thyromegaly. LUNGS: Diminished at the bases but otherwise to auscultation. No wheezes or rhonchi. No intercostal retractions. HEART: Regular rate and rhythm. No murmur. ABDOMEN: Soft. Bowel sounds are present. No masses. No tenderness. EXTREMITIES: No pedal edema. No calf tenderness. NEUROLOGICAL: Patient is awake, alert and oriented x3. Cranial nerves 2 through 12 are grossly intact. Assessment: Acute on chronic diastolic heart failure Valvular heart disease with mild mitral regurgitation, moderate tricuspid regurgitation, moderate pulmonary regurgitation Moderate to severe pulmonary hypertension Chronic kidney disease stage III History of atrial fibrillation with previous ablation, not on anticoagulation due to anemia Status post permanent pacemaker Hypertension Hyperlipidemia Diabetes mellitus type 2 Hypothyroidism Chronic anemia Hypocalcemia status post replacement Plan: Continue IV Lasix 40 mg every 12 hours for 1 more day Continue Lopressor 25 mg twice daily, losartan 50 mg daily, Imdur 30 mg daily, Lipitor 80 mg daily Monitor I&O and daily weight Repeat BMP Further recommendations to follow based upon clinical course Nurse practitioner note has been reviewed, I agree with documented findings and plan of care. Patient was seen and examined. Past Medical History Past Medical History: Atrial Fibrillation, Coronary Artery Disease (CAD), Heart Failure, Diabetes Mellitus, Deep Vein Thrombosis (DVT), Hyperlipidemia, Hypertension, Renal Disease, Thyroid Disorder Additional Past Medical History / Comment(s): neuropathy,lupus, back pain, BACK WOUND-Healed, USES CANE , CATARACT bilat. History of Any Multi-Drug Resistant Organisms: VRE Date of last positivie culture/infection: 04/01/16 MDRO Source:: back Past Surgical History: Appendectomy, Back Surgery, Breast Surgery, Cholecystectomy, Coronary Bypass/CABG, Pacemaker Additional Past Surgical History / Comment(s): thyroidectomy. triple bypass 2000, CATARACT bilat EYE 11/2016, LUE dialysis port. 5 back sx. pt had 2 ablations in [place] for afib- unsuccessful. left arm fistula. Past Anesthesia/Blood Transfusion Reactions: No Reported Reaction Additional Past Anesthesia/Blood Transfusion Reaction / Comment(s): CLAUSTROP HOBIA. HAD A BLOOD TRANSFUSION 1968-NO REACTION. Type of Cardiac Device: Permanent Pacemaker Device Placement Date:: january 2018 Past Psychological History: No Psychological Hx Reported Additional Psychological History / Comment(s): lives with grandson. independent and uses a cane. pt states she still drives. Smoking Status: Former smoker Past Alcohol Use History: None Reported Additional Past Alcohol Use History / Comment(s): STARTED SMOKING AT AGE 16 QUIT 2000 WAS SMOKING 3 PPD BY TIME SHE QUIT Past Drug Use History: None Reported - Past Family History Father Family Medical History: Cancer Additional Family Medical History / Comment(s): prostate cancer Mother Family Medical History: Cancer, Congestive Heart Failure (CHF), Diabetes Mellitus, Hyperlipidemia, Hypertension, Osteoarthritis (OA) Additional Family Medical History / Comment(s): colon cancer Brother(s) Family Medical History: Coronary Artery Disease (CAD), Deep Vein Thrombosis (DVT) Additional Family Medical History / Comment(s): back surgery Sister(s) Family Medical History: Hyperlipidemia Additional Family Medical History / Comment(s): thyroid cancer Medications and Allergies Home Medications Medication Instructions Recorded Confirmed Type Levothyroxine Sodium [Synthroid] 125 mcg PO DAILY 11/27/15 10/01/19 History Insulin NPL/Insulin Lispro See Protocol SQ AC-TID 12/03/16 10/01/19 History [humaLOG MIX 75-25 VIAL] Aspirin EC [Ecotrin Low Dose] 81 mg PO DAILY 09/09/18 08/23/19 History Losartan [Cozaar] 50 mg PO DAILY 09/09/18 10/01/19 History oxyCODONE-APAP 10-325MG [Percocet 1 tab PO Q6H PRN 01/26/19 10/01/19 History 10-325 mg] Atorvastatin [Lipitor] 80 mg PO DAILY #30 tab 01/27/19 10/01/19 Rx Metoprolol Tartrate [Lopressor] 25 mg PO BID #60 tab 01/27/19 10/01/19 Rx Nitroglycerin Sl Tabs [Nitrostat] 0.4 mg SUBLINGUAL Q5M PRN #50 tab 01/27/19 10/01/19 Rx Isosorbide Mononitrate ER [Imdur] 30 mg PO DAILY #7 tab 02/24/19 10/01/19 Rx Pantoprazole Sodium [Protonix] 40 mg PO BID 05/08/19 10/01/19 History Silver Sulfadiazine 1 applic TOPICAL DAILY 08/23/19 10/01/19 History Baclofen 10 mg PO BID PRN #10 09/05/19 10/01/19 Rx Amoxic-Pot Clav 875-125Mg 1 tab PO BID 10/01/19 10/01/19 History [Augmentin 875-125] Bumetanide [Bumex] 1 mg PO BID 10/01/19 10/01/19 History Ketorolac [Toradol] 10 mg PO Q6H 10/01/19 10/01/19 History Pregabalin [Lyrica] 50 mg PO TID 10/01/19 10/01/19 History Allergies Allergy/AdvReac Type Severity Reaction Status Date / Time No Known Allergies Allergy Verified 10/01/19 16:52 Physical Exam Vitals: Vital Signs Temp Pulse Pulse Resp BP BP Pulse Ox 10/02/19 04:00 76 18 116/76 95 10/02/19 03:57 69 18 10/02/19 00:00 74 18 102/68 99 10/01/19 22:26 98.3 F 83 18 104/68 97 10/01/19 22:23 98.3 F 83 18 104/68 10/01/19 20:00 98.5 F 80 18 111/72 98 10/01/19 18:59 98.3 F 84 18 92/60 97 10/01/19 18:29 97.4 F L 80 16 84/43 100 10/01/19 18:19 98.5 F 87 16 91/39 100 10/01/19 16:00 16 10/01/19 15:57 97.9 F 10/01/19 15:55 79 16 95/60 100 10/01/19 13:45 98.1 F 75 15 122/58 98 10/01/19 13:00 86 26 H 115/57 100 10/01/19 12:30 78 26 H 102/56 95 10/01/19 11:30 97.9 F 88 26 H 118/61 92 L Intake and Output 10/01/19 10/02/19 10/02/19 22:59 06:59 14:59 Intake Total 546 550 Output Total 1100 1250 Balance -554 -700 Intake: Oral 236 240 Blood Product 310 310 Rc As-1 Unit 310 [id number] Output: Urine 1100 1250 Other: Weight 99.79 kg 113.5 kg Results 10/02/19 07:35 10/01/19 12:00 Cardiac Enzymes 10/01/19 10/01/19 Range/Units 12:00 12:00 AST 34 (14-36) U/L Troponin I 0.018 (0.000-0.034) ng/mL Coagulation 10/01/19 Range/Units 12:00 PT 12.3 H (9.0-12.0) sec APTT 28.4 (22.0-30.0) sec CBC 10/01/19 10/01/19 Range/Units 12:00 18:04 WBC 4.4 3.5 L (3.8-10.6) k/uL RBC 2.66 L 2.66 L (3.80-5.40) m/uL Hgb 6.4 L* 6.7 L* (11.4-16.0) gm/dL Hct 21.9 L 22.4 L (34.0-46.0) % Plt Count 128 L 133 L (150-450) k/uL Comprehensive Metabolic Panel 10/01/19 Range/Units 12:00 Sodium 135 L (137-145) mmol/L Potassium 4.1 (3.5-5.1) mmol/L Chloride 102 (98-107) mmol/L Carbon Dioxide 22 (22-30) mmol/L BUN 35 H (7-17) mg/dL Creatinine 1.62 H (0.52-1.04) mg/dL Glucose 156 H (74-99) mg/dL Calcium 7.7 L (8.4-10.2) mg/dL AST 34 (14-36) U/L ALT 21 (4-34) U/L Alkaline Phosphatase 148 H (38-126) U/L Total Protein 7.1 (6.3-8.2) g/dL Albumin 3.6 (3.5-5.0) g/dL Current Medications Generic Name Dose Route Start Last Admin Trade Name Freq PRN Reason Stop Dose Admin Amoxicillin/Clavulanate Potassium 1 each 10/01/19 21:00 10/01/19 22:00 Augmentin 875-125 PO 1 each BID RUTH Administration Atorvastatin Calcium 80 mg 10/02/19 09:00 Lipitor PO DAILY RUTH Baclofen 10 mg 10/01/19 17:43 Lioresal PO BID PRN Spasms Furosemide 40 mg 10/01/19 21:00 10/01/19 22:00 Lasix IV 40 mg Q12HR RUTH Administration Insulin Aspart 10 unit 10/01/19 18:00 10/01/19 18:02 Novolog Mix 70-30 Vial SQ 10 unit AC-BID RUTH Administration Isosorbide Mononitrate 30 mg 10/02/19 09:00 Imdur PO DAILY RUTH Levothyroxine Sodium 125 mcg 10/01/19 17:45 10/02/19 06:15 Synthroid PO 125 mcg DAILY@0630 RUTH Administration Losartan Potassium 50 mg 10/01/19 17:45 10/01/19 17:57 Cozaar PO Not Given DAILY RUTH Metoprolol Tartrate 25 mg 10/01/19 21:00 10/01/19 22:00 Lopressor PO 25 mg BID RUTH Administration Naloxone HCl 0.2 mg 10/01/19 13:00 Narcan IV Q2M PRN Opioid Reversal Nitroglycerin 0.4 mg 10/01/19 17:43 Nitrostat SUBLINGUAL Q5M PRN Chest Pain Pantoprazole Sodium 40 mg 10/01/19 21:00 10/01/19 22:01 Protonix PO 40 mg AC-BID RUTH Administration Pregabalin 50 mg 10/01/19 22:00 10/01/19 22:00 Lyrica PO 50 mg TID RUTH Administration Silver Sulfadiazine 1 applic 10/02/19 09:00 Silvadene Cream TOPICAL DAILY RUTH Intake and Output 10/01/19 10/02/19 10/02/19 22:59 06:59 14:59 Intake Total 546 550 Output Total 1100 1250 Balance -554 -700 Intake: Oral 236 240 Blood Product 310 310 Rc As-1 Unit 310 [id number] Output: Urine 1100 1250 Other: Weight 99.79 kg 113.5 kg 10/01/19 18:04 10/01/19 12:00
--- NOTE | 2019-10-02 14:27 | P.HPIM ---
History of Present Illness This is a pleasant 73 years old female with past medical history of atrial fibrillation, heart failure, coronary artery disease, deep venous thrombosis, DVT not on anticoagulation, hyperlipidemia, hypertension, hypothyroidism, neuro sammi, glucose, chronic back pain. Patient looks drowsy and could not provide information, last month patient has been evaluated by neurologist and found to have metabolic encephalopathy and recommended to avoid sedatives and narcotics, was not as the patient got 1 dose of [place] 02/18/2025 milligrams the emergency room. Patient was obtained from staff records, patient presents because of dyspnea o connor few days. Emergency room note, she denies cough and fever, denies melena or hematuria, no abdominal pain, no chest pain, but she has chronic back pain and found to be fluid overloaded with some hypoxia, also she has mild wheezing Patient is on Augmentin but not sure why As per staff patient was like this before last admission and this morning she was able to her breakfast and lunch and she does not sleep well last night. We'll keep monitoring closely. Vitals stable, blood pressure 85/44. Hemoglobin on presentation was 6.4, she got one unit of blood transfusion and her hemoglobin today is 7.6, on August her hemoglobin went down to 6.1 as above RBC 4.5, platelet count is 115 INR is 1.2, elevated d-dimer 1.4, sugar controlled, creatinine 1.6, baseline is 0.9-1.5, troponin is negative, proBNP 3660, UA is negative for infection. Occult blood in the stool is negative EKG showing atrial fibrillation at [address]-T changes. Chest x-ray: Suspect CHF, ventilation/perfusion scan is low probability 2 for PE In the emergency room patient got [place], Lasix time 1 and calcium gluconate Patient has been evaluated on 09/04 last month for possible GI bleed, however no evidence of GI bleed was found Study from 09/04 showed low iron 24, low iron saturation at 6.5, normal TIBC at 368 , normal ferittin 49, suspected anemia of chronic disease Review of Systems n/a patient could not provide information due to her sleepiness Past Medical History Past Medical History: Atrial Fibrillation, Coronary Artery Disease (CAD), Heart Failure, Diabetes Mellitus, Deep Vein Thrombosis (DVT), Hyperlipidemia, Hypertension, Renal Disease, Thyroid Disorder Additional Past Medical History / Comment(s): neuropathy,lupus, back pain, BACK WOUND-Healed, USES CANE , CATARACT bilat. History of Any Multi-Drug Resistant Organisms: VRE Date of last positivie culture/infection: 04/01/16 MDRO Source:: back Past Surgical History: Appendectomy, Back Surgery, Breast Surgery, Cholecystectomy, Coronary Bypass/CABG, Pacemaker Additional Past Surgical History / Comment(s): thyroidectomy. triple bypass 2000, CATARACT bilat EYE 11/2016, LUE dialysis port. 5 back sx. pt had 2 ablatio ns in [place] for afib- unsuccessful. left arm fistula. Past Anesthesia/Blood Transfusion Reactions: No Reported Reaction Additional Past Anesthesia/Blood Transfusion Reaction / Comment(s): CLAUSTROPHOBIA. HAD A BLOOD TRANSFUSION 1968-NO REACTION. Type of Cardiac Device: Permanent Pacemaker Device Placement Date:: january 2018 Past Psychological History: No Psychological Hx Reported Additional Psychological History / Comment(s): lives with grandson. independent and uses a cane. pt states she still drives. Smoking Status: Former smoker Past Alcohol Use History: None Reported Additional Past Alcohol Use History / Comment(s): STARTED SMOKING AT AGE 16 QUIT 2000 WAS SMOKING 3 PPD BY TIME SHE QUIT Past Drug Use History: None Reported - Past Family History Father Family Medical History: Cancer Additional Family Medical History / Comment(s): prostate cancer Mother Family Medical History: Cancer, Congestive Heart Failure (CHF), Diabetes Mellitus, Hyperlipidemia, Hypertension, Osteoarthritis (OA) Additional Family Medical History / Comment(s): colon cancer Brother(s) Family Medical History: Coronary Artery Disease (CAD), Deep Vein Thrombosis (DVT) Additional Family Medical History / Comment(s): back surgery Sister(s) Family Medical History: Hyperlipidemia Additional Family Medical History / Comment(s): thyroid cancer Medications and Allergies Home Medications Medication Instructions Recorded Confirmed Type Levothyroxine Sodium [Synthroid] 125 mcg PO DAILY 11/27/15 10/01/19 History Insulin NPL/Insulin Lispro See Protocol SQ AC-TID 12/03/16 10/01/19 History [humaLOG MIX 75-25 VIAL] Aspirin EC [Ecotrin Low Dose] 81 mg PO DAILY 09/09/18 08/23/19 History Losartan [Cozaar] 50 mg PO DAILY 09/09/18 10/01/19 History oxyCODONE-APAP 10-325MG [Percocet 1 tab PO Q6H PRN 01/26/19 10/01/19 History 10-325 mg] Atorvastatin [Lipitor] 80 mg PO DAILY #30 tab 01/27/19 10/01/19 Rx Metoprolol Tartrate [Lopressor] 25 mg PO BID #60 tab 01/27/19 10/01/19 Rx Nitroglycerin Sl Tabs [Nitrostat] 0.4 mg SUBLINGUAL Q5M PRN #50 tab 01/27/19 10/01/19 Rx Isosorbide Mononitrate ER [Imdur] 30 mg PO DAILY #7 tab 02/24/19 10/01/19 Rx Pantoprazole Sodium [Protonix] 40 mg PO BID 05/08/19 10/01/19 History Silver Sulfadiazine 1 applic TOPICAL DAILY 08/23/19 10/01/19 History Baclofen 10 mg PO BID PRN #10 09/05/19 10/01/19 Rx Amoxic-Pot Clav 875-125Mg 1 tab PO BID 10/01/19 10/01/19 History [Augmentin 875-125] Bumetanide [Bumex] 1 mg PO BID 10/01/19 10/01/19 History Ketorolac [Toradol] 10 mg PO Q6H 10/01/19 10/01/19 History Pregabalin [Lyrica] 50 mg PO TID 10/01/19 10/01/19 History Allergies Allergy/AdvReac Type Severity Reaction Status Date / Time No Known Allergies Allergy Verified 10/01/19 16:52 Physical Exam Vitals: Vital Signs Temp Pulse Pulse Resp BP BP Pulse Ox 10/02/19 11:47 99 F 77 18 85/44 96 10/02/19 08:00 98.3 F 98 16 134/61 98 10/02/19 04:00 76 18 116/76 95 10/02/19 03:57 69 18 10/02/19 00:00 74 18 102/68 99 10/01/19 22:26 98.3 F 83 18 104/68 97 10/01/19 22:23 98.3 F 83 18 104/68 10/01/19 20:00 98.5 F 80 18 111/72 98 10/01/19 18:59 98.3 F 84 18 92/60 97 10/01/19 18:29 97.4 F L 80 16 84/43 100 10/01/19 18:19 98.5 F 87 16 91/39 100 10/01/19 16:00 16 10/01/19 15:57 97.9 F 10/01/19 15:55 79 16 95/60 100 Intake and Output 10/01/19 10/02/19 10/02/19 22:59 06:59 14:59 Intake Total 546 550 210 Output Total 1100 1250 0 Balance -554 -700 210 Intake: Oral 236 240 210 Blood Product 310 310 Rc As-1 Unit 310 [id number] Output: Urine 1100 1250 0 Other: Weight 99.79 kg 113.5 kg -GENERAL: The patient is sleepy, not in any acute distress. Well developed, well nourished. HEENT: Pupils are round and equally reacting to light. EOMI. No scleral icterus. No conjunctival pallor. Normocephalic, atraumatic. No pharyngeal erythema. No thyromegaly. CARDIOVASCULAR: S1 and S2 present. No murmurs, rubs, or gallops. -PULMONARY: Chest is clear to auscultation, bilateral scattered wheezing and basal crepitation ABDOMEN: Soft, nontender, nondistended, normoactive bowel sounds. No palpable organomegaly. MUSCULOSKELETAL: No joint swelling or deformity. EXTREMITIES: No cyanosis, clubbing, or pedal edema. NEUROLOGICAL: Gross neurological examination did not reveal any focal deficits. SKIN: No rashes. No petechiae Results CBC & Chem 7: 10/02/19 07:35 10/01/19 12:00 Labs: Abnormal Lab Results - Last 24 Hours (Table) 10/01/19 10/01/19 10/01/19 Range/Units 12:00 13:35 16:26 WBC (3.8-10.6) k/uL RBC (3.80-5.40) m/uL Hgb (11.4-16.0) gm/dL Hct (34.0-46.0) % MCHC (31.0-37.0) g/dL RDW (11.5-15.5) % Plt Count (150-450) k/uL Lymphocytes # (Manual) (1.0-4.8) k/uL POC Glucose (mg/dL) 155 H (75-99) mg/dL Urine Protein Trace H (Negative) Crossmatch See Detail 10/01/19 10/01/19 10/02/19 Range/Units 18:04 20:19 06:42 WBC 3.5 L (3.8-10.6) k/uL RBC 2.66 L (3.80-5.40) m/uL Hgb 6.7 L* (11.4-16.0) gm/dL Hct 22.4 L (34.0-46.0) % MCHC 30.1 L (31.0-37.0) g/dL RDW 18.8 H (11.5-15.5) % Plt Count 133 L (150-450) k/uL Lymphocytes # (Manual) 0.77 L (1.0-4.8) k/uL POC Glucose (mg/dL) 228 H 119 H (75-99) mg/dL Urine Protein (Negative) Crossmatch 10/02/19 10/02/19 Range/Units 07:35 11:31 WBC (3.8-10.6) k/uL RBC 3.00 L (3.80-5.40) m/uL Hgb 7.6 L (11.4-16.0) gm/dL Hct 25.7 L (34.0-46.0) % MCHC 29.4 L (31.0-37.0) g/dL RDW 18.3 H (11.5-15.5) % Plt Count 115 L (150-450) k/uL Lymphocytes # (Manual) (1.0-4.8) k/uL POC Glucose (mg/dL) 191 H (75-99) mg/dL Urine Protein (Negative) Crossmatch Thrombosis Risk Factor Assmnt - Choose All That Apply Each Risk Factor Represents 3 Points: Age 75 years or older Thrombosis Risk Factor Assessment Total Risk Factor Score: 3 Thrombosis Risk Factor Assessment Level: Moderate Risk Assessment and Plan Assessment: Acute on chronic anemia, status post multiple blood transfusion in the past. Got 1 unit in the emergency room acute on chronic Diastolic heart failure bicytopenia with anemia and thrombocytopenia elevated d-dimer, ventilation/perfusion scan is low probability 2 for PE Metabolic/toxic encephalopathy secondary to above and narcotic sedatives chronic kidney disease Hypertension Hyperlipidemia Hypothyroidism chronic Atrial fibrillation, status post pacemaker History of coronary artery disease, status post triple bypass surgery History of deep venous thrombosis, not on anticoagulation neuropathy Lupus Chronic back pain Plan: this is a pleasant 73 years old female who presents with severe anemia and CHF. She is status post blood transfusion. Monitor hemoglobin, continue with Protonix twice a day, cardiology consult is following the patient. Continue with Lasix. Will call hematology consult for bicytopenia with anemia and thrombocytopenia. Continue with neuro check. Check procalcitonin. Avoid sedatives antibiotics. Labs and medication were reviewed.. Continue same treatment. Continue with symptomatic treatment. Resume home medication. Monitor lytes and vitals. DVT and GI prophylaxis. Further recommendations of the clinical course of the patient DVT prophylaxis: Subcutaneous heparin GI Prophylaxis: Pepcid PT/OT: Pending Prognosis is guarded Discussed with staff
[2019-10-02 17:01] LABS: Glucose,Whole Blood 123 mg/dL (75-99)
[2019-10-02] MEDS: BACLOFEN 10 MG TAB PO PRN (18:15)
[2019-10-02 20:11] LABS: Glucose,Whole Blood 195 mg/dL (75-99)
[2019-10-02] MEDS: LIDOCAINE 5% PATCH TOPICAL SCH (22:34)
[2019-10-03] MEDS: BACLOFEN 10 MG TAB PO PRN ×2 (01:47→10:10)
[2019-10-03] MEDS: LEVOTHYROXINE 125 MCG TAB PO SCH (05:34)
[2019-10-03 07:02] LABS: Glucose,Whole Blood 149 mg/dL (75-99)
[2019-10-03 08:03] LABS: Albumin 3.4 g/dL (3.5-5.0); Calcium 8.2 mg/dL (8.4-10.2); Potassium 4.2 mmol/L (3.5-5.1); Total Bilirubin 1.3 mg/dL (0.2-1.3); Total Protein 6.9 g/dL (6.3-8.2)
[2019-10-03] MEDS: AMOXIC-POT CLAV 875-125MG 1 EACH TAB PO SCH ×2 (08:19→20:33)
[2019-10-03] MEDS: FUROSEMIDE 10 MG/ML 4 ML VIAL IV SCH ×2 (08:19→20:41)
[2019-10-03] MEDS: ISOSORBIDE MONONITRATE ER 30 MG TAB.ER.24H PO SCH (08:19)
[2019-10-03] MEDS: ATORVASTATIN 80 MG TAB PO SCH (08:19)
[2019-10-03] MEDS: PANTOPRAZOLE 40 MG TABLET PO SCH ×2 (08:19→17:55)
[2019-10-03] MEDS: METOPROLOL TARTRATE 25 MG TAB PO SCH ×2 (08:19→20:33)
[2019-10-03] MEDS: PREGABALIN 50 MG CAP PO SCH ×3 (08:19→20:33)
[2019-10-03] MEDS: LOSARTAN 50 MG TAB PO SCH (08:19)
[2019-10-03] MEDS: LIDOCAINE 5% PATCH TOPICAL SCH (08:20)
[2019-10-03] MEDS: INSULN ASP PRT/INSULIN ASPART 100 UNIT/ML 10 ML VIAL SQ SCH ×2 (08:22→17:55)
[2019-10-03 08:44] LABS: Anisocytosis Slight; HCT 24.6 % (34.0-46.0); HGB 7.1 gm/dL (11.4-16.0); Hypochromasia Marked; MCH 24.6 pg (25.0-35.0); MCHC 28.8 g/dL (31.0-37.0); MCV 85.3 fL (80.0-100.0); Mean Platelet Volume 10.7; Platelet Count 120 k/uL (150-450); Poikilocytosis Marked; RBC 2.88 m/uL (3.80-5.40); RDW 18.4 % (11.5-15.5); WBC 4.9 k/uL (3.8-10.6)
[2019-10-03] MEDS: ACETAMINOPHEN TAB 325 MG TAB PO PRN (09:17)
[2019-10-03] MEDS ORDERED: oxyCODONE-APAP 5-325MG 1 EACH TAB PO STA (10:02)
[2019-10-03] MEDS: CAPSAICIN 0.025% CREAM 60 GM TUBE TOPICAL SCH ×4 (10:13→20:41)
[2019-10-03 11:01] LABS: Lymphocytes # (M) 0.44 k/uL (1.0-4.8); Monocytes # (M) 0.39 k/uL (0-1.0); Neutrophils # (M) 3.92 k/uL (1.3-7.7); Neutrophils % (M) 80 %; Nucleated Red Blood Cells 1 /100 WBC (0-0); Total Cells Counted 200
--- NOTE | 2019-10-03 11:51 | P.PN ---
Subjective Progress Note Date: 10/03/19 History of present illness: This is a 73-year-old female patient follows with Dr. Brewster with history of coronary artery disease with triple vessel CABG in 2000, permanent pacemaker implantation and history of atrial fibrillation with previous ablations, history of renal failure requiring hemodialysis in the past, hypertension, diabetes mellitus type 2, hyperlipidemia, hypothyroidism. She does have a fistula in the left arm. Patient came into the hospital complaining of shortness of breath and difficulty taking a deep breath. She is normally on Bumex 1 mg 3 times daily. She states she has a follow-up with Dr. Brewster recently. At the time of this evaluation, she states her breathing is improved. She denies having any lower extremity edema. She denies any cough or fever. Initial vital signs with blood pressure 116/76, heart rate 60s to 70s and pulse ox 95% on room air. Hemoglobin 6.7 with stool for occult blood negative. D-dimer 1.4 and VQ scan low probability for pulmonary embolism. EKG is atrial fibrillation with rate controlled at 88 bpm. Chest x-ray shows CHF exacerbation. Pro BNP 3660, troponin 0.018. BUN 35 and creatinine 1.62. Patient was started on Lasix 40 mg IV every 12 hours and admitted to the cardiac stepdown unit. Her last echocardiogram in April 2016 revealed EF of 55-60%, mild mitral regurgitation, moderate tricuspid regurgitation, moderate to severe pulmonary hypertension, moderate pulmonary regurgitation. Patient had a recent hospitalization in August of this year for cellulitis of the lower extremity, narcotic induced toxic encephalopathy and anemia requiring 2 units of packed RBCs. Patient was seen by Dr. Mele Butler thought to be multifactorial anemia with no active GI bleed as well as noted to have acute hepatitis 10/02: Patient is seen today in follow-up. Patient is crying and can be heard down the [place] crying regarding back pain. She denies having any chest pain at this time, no shortness of breath. No lower extremity edema. She is currently on IV Lasix at 40 mg every 12 hours which will be continued for 1 more day and transitioned to oral. Repeat electrolytes are normal, BUN 30, creatinine 1.32 and potassium 4.2. Hemoglobin is at 7.1 which is chronically low and platelet count 120. Physical examination: Gen: This is a 73-year-old female. Patient is resting in bed and appears to be comfortable at time of evaluation. VS: Afebrile, heart rate 83, blood pressure 144/59, pulse ox 94% on room air HEENT: Head is atraumatic, normocephalic. Pupils equal, round. Sclerae is anicteric. NECK: Supple. No JVD. No lymphadenopathy. No thyromegaly. LUNGS: Diminished at the bases but otherwise clear to auscultation. No wheezes or rhonchi. No intercostal retractions. HEART: Regular rate and rhythm. No murmur. ABDOMEN: Soft. Bowel sounds are present. No masses. No tenderness. EXTREMITIES: No pedal edema. No calf tenderness. NEUROLOGICAL: Patient is awake, alert and oriented x3. Cranial nerves 2 through 12 are grossly intact. Assessment: Acute on chronic diastolic heart failure Valvular heart disease with mild mitral regurgitation, moderate tricuspid regurgitation, moderate pulmonary regurgitation Moderate to severe pulmonary hypertension Chronic kidney disease stage III History of atrial fibrillation with previous ablation, not on anticoagulation due to anemia Status post permanent pacemaker Hypertension Hyperlipidemia Diabetes mellitus type 2 Hypothyroidism Chronic anemia Chronic thrombocytopenia Hypocalcemia status post replacement Chronic back pain Plan: Continue IV Lasix 40 mg every 12 hours for 1 more day and plan to transition to oral tomorrow Continue Lopressor 25 mg twice daily, losartan 50 mg daily, Imdur 30 mg daily, Lipitor 80 mg daily Monitor I&O and daily weight Repeat BMP Further recommendations to follow based upon clinical course Nurse practitioner note has been reviewed, I agree with documented findings and plan of care. Patient was seen and examined. Objective - Vital Signs Vital signs: Vital Signs Temp 98.7 F 10/03/19 08:00 Pulse 82 10/03/19 08:00 Resp 18 10/03/19 08:00 BP 120/52 10/03/19 08:00 Pulse Ox 98 10/03/19 08:00 Intake & Output 10/02/19 10/03/19 10/03/19 18:59 06:59 18:59 Intake Total 330 1020 Output Total 800 4360 400 Balance -470 -3340 -400 Weight 114.5 kg Intake: Oral 330 1020 Output: Urine 800 4360 400 Other: # Bowel Movements 0 0 - Labs CBC & Chem 7: 10/03/19 07:21 10/03/19 07:21 Labs: Abnormal Lab Results - Last 24 Hours (Table) 10/02/19 10/02/19 10/02/19 Range/Units 11:31 16:59 20:10 RBC (3.80-5.40) m/uL Hgb (11.4-16.0) gm/dL Hct (34.0-46.0) % MCH (25.0-35.0) pg MCHC (31.0-37.0) g/dL RDW (11.5-15.5) % Plt Count (150-450) k/uL BUN (7-17) mg/dL Creatinine (0.52-1.04) mg/dL Glucose (74-99) mg/dL POC Glucose (mg/dL) 191 H 123 H 195 H (75-99) mg/dL Calcium (8.4-10.2) mg/dL Lactate Dehydrogenase (313-618) U/L Albumin (3.5-5.0) g/dL 10/03/19 10/03/19 10/03/19 Range/Units 06:58 07:21 07:21 RBC 2.88 L (3.80-5.40) m/uL Hgb 7.1 L (11.4-16.0) gm/dL Hct 24.6 L (34.0-46.0) % MCH 24.6 L (25.0-35.0) pg MCHC 28.8 L (31.0-37.0) g/dL RDW 18.4 H (11.5-15.5) % Plt Count 120 L (150-450) k/uL BUN 30 H (7-17) mg/dL Creatinine 1.32 H (0.52-1.04) mg/dL Glucose 136 H (74-99) mg/dL POC Glucose (mg/dL) 149 H (75-99) mg/dL Calcium 8.2 L (8.4-10.2) mg/dL Lactate Dehydrogenase 681 H (313-618) U/L Albumin 3.4 L (3.5-5.0) g/dL
[2019-10-03 12:21] LABS: Glucose,Whole Blood 187 mg/dL (75-99)
--- NOTE | 2019-10-03 13:13 | P.CONS ---
History of Present Illness - Reason for Consult Consult date: 10/02/19 Anemia and thrombocytopenia Requesting physician: Jorge E Sheet - Chief Complaint SOB - History of Present Illness Mrs. Chan is a 73 year old woman with multiple medical issues who was brought to [facility] for increased SOB over the past few days. sShe has a known history of atrial fibrillation, heart failure, coronary artery disease, deep venous thrombosis, DVT not on anticoagulation, hyperlipidemia, hypertension, hypothyroidism, neuropathy, glucose, chronic back pain. Last month she was admitted with acute encephalopathy, thought to be related to her narcotic analgesics. She was also treated for LLE cellulitis with antibiotics and evaluated by GI for GI bleeding. I did not see that she underwent a scope during that hospitalization. She appears to have a chronic anemia and more recent mild thrombocytopenia. Therefore hematology was asked to further evaluate Review of Systems A 14 point review of systems assessed and completed and all negative except HPI, poor historian Past Medical History Past Medical History: Atrial Fibrillation, Coronary Artery Disease (CAD), Heart Failure, Diabetes Mellitus, Deep Vein Thrombosis (DVT), Hyperlipidemia, Hypertension, Renal Disease, Thyroid Disorder Additional Past Medical History / Comment(s): neuropathy,lupus, back pain, BACK WOUND-Healed, USES CANE , CATARACT bilat. 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 triple bypass 2000, CATARACT bilat EYE 11/2016, LUE dialysis port. 5 back sx. pt had 2 ablations in [place] for afib- unsuccessful. left arm fistula. Past Anesthesia/Blood Transfusion Reactions: No Reported Reaction Additional Past Anesthesia/Blood Transfusion Reaction / Comm: CLAUSTROPHOBIA. FERGUSON D A BLOOD TRANSFUSION 1968-NO REACTION. Type of Cardiac Device: Permanent Pacemaker Device Placement Date:: january 2018 Past Psychological History: No Psychological Hx Reported Additional Psychological History / Comment(s): lives with grandson. independent and uses a cane. pt states she still drives. Smoking Status: Former smoker Past Alcohol Use History: None Reported Additional Past Alcohol Use History / Comment(s): STARTED SMOKING AT AGE 16 QUIT 2000 WAS SMOKING 3 PPD BY TIME SHE QUIT Past Drug Use History: None Reported - Past Family History Father Family Medical History: Cancer Additional Family Medical History / Comment(s): prostate cancer Mother Family Medical History: Cancer, Congestive Heart Failure (CHF), Diabetes Mellitus, Hyperlipidemia, Hypertension, Osteoarthritis (OA) Additional Family Medical History / Comment(s): colon cancer Brother(s) Family Medical History: Coronary Artery Disease (CAD), Deep Vein Thrombosis (DVT) Additional Family Medical History / Comment(s): back surgery Sister(s) Family Medical History: Hyperlipidemia Additional Family Medical History / Comment(s): thyroid cancer Medications and Allergies Home Medications Medication Instructions Recorded Confirmed Type Levothyroxine Sodium [Synthroid] 125 mcg PO DAILY 11/27/15 10/01/19 History Insulin NPL/Insulin Lispro See Protocol SQ AC-TID 12/03/16 10/01/19 History [humaLOG MIX 75-25 VIAL] Aspirin EC [Ecotrin Low Dose] 81 mg PO DAILY 09/09/18 08/23/19 History Losartan [Cozaar] 50 mg PO DAILY 09/09/18 10/01/19 History oxyCODONE-APAP 10-325MG [Percocet 1 tab PO Q6H PRN 01/26/19 10/01/19 History 10-325 mg] Atorvastatin [Lipitor] 80 mg PO DAILY #30 tab 01/27/19 10/01/19 Rx Metoprolol Tartrate [Lopressor] 25 mg PO BID #60 tab 01/27/19 10/01/19 Rx Nitroglycerin Sl Tabs [Nitrostat] 0.4 mg SUBLINGUAL Q5M PRN #50 tab 01/27/19 10/01/19 Rx Isosorbide Mononitrate ER [Imdur] 30 mg PO DAILY #7 tab 02/24/19 10/01/19 Rx Pantoprazole Sodium [Protonix] 40 mg PO BID 05/08/19 10/01/19 History Silver Sulfadiazine 1 applic TOPICAL DAILY 08/23/19 10/01/19 History Baclofen 10 mg PO BID PRN #10 09/05/19 10/01/19 Rx Amoxic-Pot Clav 875-125Mg 1 tab PO BID 10/01/19 10/01/19 History [Augmentin 875-125] Bumetanide [Bumex] 1 mg PO BID 10/01/19 10/01/19 History Ketorolac [Toradol] 10 mg PO Q6H 10/01/19 10/01/19 History Pregabalin [Lyrica] 50 mg PO TID 10/01/19 10/01/19 History Allergies Allergy/AdvReac Type Severity Reaction Status Date / Time No Known Allergies Allergy Verified 10/01/19 16:52 Physical Exam Vitals: Vital Signs Temp Pulse Resp BP Pulse Ox 10/03/19 11:12 98.2 F 83 16 144/59 94 L 10/03/19 08:00 98.7 F 82 18 120/52 98 10/03/19 04:00 74 18 134/78 96 10/03/19 00:00 79 16 10/02/19 20:00 16 10/02/19 19:30 80 16 126/76 95 10/02/19 16:00 98.4 F 71 18 124/56 99 Intake and Output 10/02/19 10/03/19 10/03/19 22:59 06:59 14:59 Intake Total 1140 Output Total 2260 2900 400 Balance -1120 -2900 -400 Intake: Oral 1140 Output: Urine 2260 2900 400 Other: # Bowel Movements 0 0 Weight 114.5 kg Results CBC & Chem 7: 10/03/19 07:21 10/03/19 07:21 Labs: Abnormal Lab Results - Last 24 Hours (Table) 10/02/19 10/02/19 10/03/19 Range/Units 16:59 20:10 06:58 RBC (3.80-5.40) m/uL Hgb (11.4-16.0) gm/dL Hct (34.0-46.0) % MCH (25.0-35.0) pg MCHC (31.0-37.0) g/dL RDW (11.5-15.5) % Plt Count (150-450) k/uL Lymphocytes # (Manual) (1.0-4.8) k/uL Nucleated RBCs (0-0) /100 WBC BUN (7-17) mg/dL Creatinine (0.52-1.04) mg/dL Glucose (74-99) mg/dL POC Glucose (mg/dL) 123 H 195 H 149 H (75-99) mg/dL Calcium (8.4-10.2) mg/dL Lactate Dehydrogenase (313-618) U/L Albumin (3.5-5.0) g/dL 10/03/19 10/03/19 10/03/19 Range/Units 07:21 07:21 12:19 RBC 2.88 L (3.80-5.40) m/uL Hgb 7.1 L (11.4-16.0) gm/dL Hct 24.6 L (34.0-46.0) % MCH 24.6 L (25.0-35.0) pg MCHC 28.8 L (31.0-37.0) g/dL RDW 18.4 H (11.5-15.5) % Plt Count 120 L (150-450) k/uL Lymphocytes # (Manual) 0.44 L (1.0-4.8) k/uL Nucleated RBCs 1 H (0-0) /100 WBC BUN 30 H (7-17) mg/dL Creatinine 1.32 H (0.52-1.04) mg/dL Glucose 136 H (74-99) mg/dL POC Glucose (mg/dL) 187 H (75-99) mg/dL Calcium 8.2 L (8.4-10.2) mg/dL Lactate Dehydrogenase 681 H (313-618) U/L Albumin 3.4 L (3.5-5.0) g/dL Chest x-ray: report reviewed Assessment and Plan Plan: Assessment and Recommendations: Normocytic Anemia: Likely multifactoral recent blood loss and renal dz - When trending patients labs back to 2015, this is shown to be chronic with a norm between 8-9. This does appear to fall consistent with her chronically elevated renal function as well. Although I do not see she has ever been evaluated by hematology, therefore work-up to evaluate for other causes has been ordered - Last month admission and found to have GI bleed, GI did consult on patient. If she has not had GI evaluation this is recommended as her iron studies were decreased last admission. Mild thrombocytopenia: - This appears to have started in August of this year. This was during her admission with acute hepatitis, encephalopathy and LLE cellulitis. - Likely secondary to inflammation and medications (Tramadol/antibiotics) Plan: - Work-up in place - Rec GI to evaluate for scope if not completed at last admission - Await Iron studies and if no signs of sepsis or acute infection may proceed with parental Iron - Stop NSAID please - Patient could not tell me if has been on erythropoetin injections, this could be considered
[2019-10-03] MEDS ORDERED: traMADol 50 MG TAB PO PRN (13:16)
[2019-10-03 17:15] LABS: Glucose,Whole Blood 156 mg/dL (75-99)
--- NOTE | 2019-10-03 18:34 | CT ---
EXAMINATION TYPE: CT brain wo con DATE OF EXAM: 10/03/2019 COMPARISON: 09/21/2019 HISTORY: Confusion CT DLP: 2490.4 mGycm Automated exposure control for dose reduction was used. Exam performed with no contrast. There is some cerebral cortical atrophy. There is no mass effect nor midline shift. There is no sign of intracranial hemorrhage. The calvarium is intact. There is limited aeration of the mastoid sinuses . There is atherosclerotic vascular calcification. IMPRESSION: Cerebral atrophy. No acute intracranial abnormality. No change.
[2019-10-03 20:29] LABS: Glucose,Whole Blood 162 mg/dL (75-99)
--- NOTE | 2019-10-04 00:14 | P.PN ---
Subjective On-call hospitalist covering for Dr. Hdz over the weekend, Dr. Hdz will resume the care of the patient tomorrow This is a pleasant 73 years old female with past medical history of atrial fibrillation, heart failure, coronary artery disease, deep venous thrombosis, DVT not on anticoagulation, hyperlipidemia, hypertension, hypothyroidism, delvis ropathy, glucose, chronic back pain. Patient looks drowsy and could not provide information, last month patient has been evaluated by neurologist and found to have metabolic encephalopathy and recommended to avoid sedatives and narcotics, was not as the patient got 1 dose of [place]ug[place] 02/18/2025 milligrams the emergency room. Patient was obtained from staff records, patient presents because of dyspnea over few days. Emergency room note, she denies cough and fever, denies melena or hematuria, no abdominal pain, no chest pain, but she has chronic back pain and found to be fluid overloaded with some hypoxia, also she has mild wheezing Patient is on Augmentin but not sure why As per staff patient was like this before last admission and this morning she was able to her breakfast and lunch and she does not sleep well last night. We'll keep monitoring closely. Vitals stable, blood pressure 85/44. Hemoglobin on presentation was 6.4, she got one unit of blood transfusion and her hemoglobin today is 7.6, on August her hemoglobin went down to 6.1 as above RBC 4.5, platelet count is 115 INR is 1.2, elevated d-dimer 1.4, sugar controlled, creatinine 1.6, baseline is 0.9-1.5, troponin is negative, proBNP 3660, UA is negative for infection. Occult blood in the stool is negative EKG showing atrial fibrillation at [address]-T changes. Chest x-ray: Suspect CHF, ventilation/perfusion scan is low probability 2 for PE In the emergency room patient got Chug[place], Lasix time 1 and calcium gluconate Patient has been evaluated on 09/04 last month for possible GI bleed, however no evidence of GI bleed was found Study from 09/04 showed low iron 24, low iron saturation at 6.5, normal TIBC at 368 , normal ferittin 49, suspected anemia of chronic disease 10/03/2019 Yesterday her Percocet 10 mg was stopped because she was drowsy and sleepy most of the day after she got one pill in emergency room, she was placed on lidocaine patch, however this morning patient was awake alert and oriented to time place and person however she refused lidocaine patch, she was crying or almost 2 hours asking for her pain medication, stating she has pain in her knees, shoulder and lower back ,bed side nurse called me again asking her to give her something for pain so, we gave her Tylenol and lidocaine patch however patient continued to ask for pain medication and the bedside nurse called me again to give one-time dose of Percocet 5-325 mg and baclofen, after that the patient was drowsy again. However she can open her eyes with verbal stimuli and sitting at the side of bed however she could not provide information. Hemodynamically stable. Labs including CBC showed hemoglobin 7.4 and platelets 120 Creatinine 1.3 and sugar is controlled. Patient has Simms catheter WBC 4.9K, hemoglobin 7.1, platelets 120, creatinine, and on 1.6 down to 1.3. UA is not suspicious for infection Stop Percocet and put on small dose of Ultram 25 mg 3 times a day as needed, as she has long history of chronic back pain we ordered CT brain which was negative ,last month she had two CT of the brain for the same AMS, and called neurology consult who evaluated her last time she was in the hospital for similar problem Review of Systems n/a patient could not provide information due to her sleepiness Active Medications Generic Name Dose Route Start Last Admin Trade Name Freq PRN Reason Stop Dose Admin Acetaminophen 650 mg 10/03/19 08:43 10/03/19 09:17 Tylenol Tab PO 650 mg Q6HR PRN Administration Fever and/ or Pain Amoxicillin/Clavulanate Potassium 1 each 10/01/19 21:00 10/03/19 20:33 Augmentin 875-125 PO Not Given BID RUTH Atorvastatin Calcium 80 mg 10/02/19 09:00 10/03/19 08:19 Lipitor PO 80 mg DAILY RUTH Administration Baclofen 10 mg 10/01/19 17:43 10/03/19 10:10 Lioresal PO 10 mg BID PRN Administration Spasms Capsaicin 1 applic 10/03/19 09:00 10/03/19 20:41 Trixaicin Cream TOPICAL 1 applic QID RUTH Administration Furosemide 40 mg 10/01/19 21:00 10/03/19 20:41 Lasix IV 40 mg Q12HR RUTH Administration Insulin Aspart 10 unit 10/01/19 18:00 10/03/19 17:55 Novolog Mix 70-30 Vial SQ Not Given AC-BID [facility] Isosorbide Mononitrate 30 mg 10/02/19 09:00 10/03/19 08:19 Imdur PO 30 mg DAILY RUTH Administration Levothyroxine Sodium 125 mcg 10/01/19 17:45 10/03/19 05:34 Synthroid PO 125 mcg DAILY@0630 RUTH Administration Lidocaine 1 patch 10/02/19 21:30 10/03/19 08:20 Lidoderm TOPICAL 1 patch DAILY [facility] Administration Losartan Potassium 50 mg 10/01/19 17:45 10/03/19 08:19 Cozaar PO 50 mg DAILY [facility] Administration Metoprolol Tartrate 25 mg 10/01/19 21:00 10/03/19 20:33 Lopressor PO Not Given BID [facility] Naloxone HCl 0.2 mg 10/01/19 13:00 Narcan IV Q2M PRN Opioid Reversal Nitroglycerin 0.4 mg 10/01/19 17:43 Nitrostat SUBLINGUAL Q5M PRN Chest Pain Pantoprazole Sodium 40 mg 10/01/19 21:00 10/03/19 17:55 Protonix PO Not Given AC-BID [facility] Pregabalin 50 mg 10/01/19 22:00 10/03/19 20:33 Lyrica PO Not Given TID [facility] Silver Sulfadiazine 1 applic 10/02/19 09:00 10/03/19 08:19 Silvadene Cream TOPICAL 1 applic DAILY [facility] Administration Tramadol HCl 25 mg 10/03/19 13:16 Ultram PO TID PRN Pain Objective - Vital Signs Vital signs: Vital Signs Temp 98.2 F 10/03/19 11:12 Pulse 83 10/03/19 11:12 Resp 16 10/03/19 11:12 BP 144/59 10/03/19 11:12 Pulse Ox 94 L 10/03/19 11:12 Intake & Output 10/02/19 10/03/19 10/03/19 18:59 06:59 18:59 Intake Total 330 1020 Output Total 800 4360 400 Balance -470 -3340 -400 Weight 114.5 kg Intake: Oral 330 1020 Output: Urine 800 4360 400 Other: # Bowel Movements 0 0 - Exam -GENERAL: The patient is sleepy, not in any acute distress. Well developed, well nourished. HEENT: Pupils are round and equally reacting to light. EOMI. No scleral icterus. No conjunctival pallor. Normocephalic, atraumatic. No pharyngeal erythema. No thyromegaly. CARDIOVASCULAR: S1 and S2 present. No murmurs, rubs, or gallops. -PULMONARY: Chest is clear to auscultation, bilateral scattered wheezing and basal crepitation ABDOMEN: Soft, nontender, nondistended, normoactive bowel sounds. No palpable organomegaly. MUSCULOSKELETAL: No joint swelling or deformity. EXTREMITIES: No cyanosis, clubbing, or pedal edema. NEUROLOGICAL: Gross neurological examination did not reveal any focal deficits. SKIN: No rashes. No petechiae - Labs CBC & Chem 7: 10/03/19 07:21 10/03/19 07:21 Labs: Abnormal Lab Results - Last 24 Hours (Table) 10/02/19 10/02/19 10/03/19 Range/Units 16:59 20:10 06:58 RBC (3.80-5.40) m/uL Hgb (11.4-16.0) gm/dL Hct (34.0-46.0) % MCH (25.0-35.0) pg MCHC (31.0-37.0) g/dL RDW (11.5-15.5) % Plt Count (150-450) k/uL Lymphocytes # (Manual) (1.0-4.8) k/uL Nucleated RBCs (0-0) /100 WBC BUN (7-17) mg/dL Creatinine (0.52-1.04) mg/dL Glucose (74-99) mg/dL POC Glucose (mg/dL) 123 H 195 H 149 H (75-99) mg/dL Calcium (8.4-10.2) mg/dL Lactate Dehydrogenase (313-618) U/L Albumin (3.5-5.0) g/dL 10/03/19 10/03/19 10/03/19 Range/Units 07:21 07:21 12:19 RBC 2.88 L (3.80-5.40) m/uL Hgb 7.1 L (11.4-16.0) gm/dL Hct 24.6 L (34.0-46.0) % MCH 24.6 L (25.0-35.0) pg MCHC 28.8 L (31.0-37.0) g/dL RDW 18.4 H (11.5-15.5) % Plt Count 120 L (150-450) k/uL Lymphocytes # (Manual) 0.44 L (1.0-4.8) k/uL Nucleated RBCs 1 H (0-0) /100 WBC BUN 30 H (7-17) mg/dL Creatinine 1.32 H (0.52-1.04) mg/dL Glucose 136 H (74-99) mg/dL POC Glucose (mg/dL) 187 H (75-99) mg/dL Calcium 8.2 L (8.4-10.2) mg/dL Lactate Dehydrogenase 681 H (313-618) U/L Albumin 3.4 L (3.5-5.0) g/dL Assessment and Plan Assessment: Acute on chronic anemia, status post multiple blood transfusion in the past. Got 1 unit in the emergency room acute on chronic Diastolic heart failure bicytopenia with anemia and thrombocytopenia Toxic encephalopathy secondary to pain medication elevated d-dimer, ventilation/perfusion scan is low probability 2 for PE Metabolic/toxic encephalopathy secondary to above and narcotic sedatives chronic kidney disease Hypertension Hyperlipidemia Hypothyroidism chronic Atrial fibrillation, status post pacemaker History of coronary artery disease, status post triple bypass surgery History of deep venous thrombosis, not on anticoagulation neuropathy Lupus Chronic back pain Plan: this is a pleasant 73 years old female who presents with severe anemia and CHF. She is status post blood transfusion. Monitor hemoglobin, continue with Protonix twice a day, cardiology consult is following the patient. Continue with Lasix. Will call hematology consult for bicytopenia with anemia and thrombocytopenia. Continue with neuro check. Check procalcitonin. Avoid sedatives antibiotics. call neurology consult Labs and medication were reviewed.. Continue same treatment. Continue with symptomatic treatment. Resume home medication. Monitor lytes and vitals. DVT and GI prophylaxis. Further recommendations of the clinical course of the patient DVT prophylaxis: Subcutaneous heparin GI Prophylaxis: Pepcid PT/OT: Pending Prognosis is guarded Discussed with staff
[2019-10-04] MEDS: PANTOPRAZOLE 40 MG TABLET PO SCH ×2 (06:01→12:41)
[2019-10-04] MEDS: LEVOTHYROXINE 125 MCG TAB PO SCH (06:01)
[2019-10-04 06:23] LABS: Glucose,Whole Blood 155 mg/dL (75-99)
[2019-10-04] MEDS: INSULN ASP PRT/INSULIN ASPART 100 UNIT/ML 10 ML VIAL SQ SCH ×2 (06:24→17:29)
[2019-10-04 07:12] LABS: Anisocytosis Slight; Basophils % (A) 0 %; Eosinophils # (A) 0.1 k/uL (0-0.7); Eosinophils % (A) 3 %; HCT 25.7 % (34.0-46.0); HGB 7.5 gm/dL (11.4-16.0); Hypochromasia Marked; Lymphocytes # (A) 0.6 k/uL (1.0-4.8); Lymphocytes % (A) 15 %; MCH 24.8 pg (25.0-35.0); MCHC 29.3 g/dL (31.0-37.0); MCV 84.6 fL (80.0-100.0); Mean Platelet Volume 10.9; Monocytes # (A) 0.3 k/uL (0-1.0); Monocytes % (A) 7 %; Neutrophils # (A) 2.8 k/uL (1.3-7.7); Neutrophils % (A) 70 %; Platelet Count 139 k/uL (150-450); Poikilocytosis Marked; RBC 3.04 m/uL (3.80-5.40); RDW 18.7 % (11.5-15.5)
[2019-10-04 07:15] LABS: ALT 18 U/L (4-34); AST 28 U/L (14-36); African American GFR (CKD) 52 (>60 ml/min/1.73 sqM); Albumin 3.4 g/dL (3.5-5.0); Alkaline Phosphatase 113 U/L (38-126); Anion Gap 12 mmol/L; Blood Urea Nitrogen 25 mg/dL (7-17); Calcium 8.7 mg/dL (8.4-10.2); Carbon Dioxide 23 mmol/L (22-30); Chloride 109 mmol/L (98-107); Glucose 145 mg/dL (74-99); Magnesium 2.1 mg/dL (1.6-2.3); Non-African American GFR(CKD) 45 (>60 ml/min/1.73 sqM); Potassium 3.9 mmol/L (3.5-5.1); Sodium 144 mmol/L (137-145); Total Bilirubin 1.7 mg/dL (0.2-1.3)
--- NOTE | 2019-10-04 08:21 | P.PN ---
Subjective Principal diagnosis: anemia with shortness of breath. the patient is sedated/obtunded secondary to medications given. We will hold a ny type of narcotic this time. Objective - Vital Signs Vital signs: Vital Signs Temp 97.7 F 10/04/19 04:00 Pulse 110 H 10/04/19 04:00 Resp 20 10/04/19 04:00 BP 159/72 10/04/19 04:00 Pulse Ox 94 L 10/04/19 04:00 Intake & Output 10/03/19 10/04/19 10/04/19 18:59 06:59 18:59 Intake Total 480 Output Total 1900 2600 Balance -1420 -2600 Weight 95 kg Intake: Oral 480 Output: Urine 1900 2600 Other: Voiding Method Indwelling Catheter - Constitutional General appearance: Present: no acute distress. Absent: cooperative - Neck Neck: Absent: lymphadenopathy - Respiratory Respiratory: bilateral: CTA - Cardiovascular Rhythm: regular Heart sounds: normal: S1, S2 Abnormal Heart Sounds: Absent: S3 Gallop - Gastrointestinal General gastrointestinal: Present: soft. Absent: tenderness - Psychiatric Psychiatric: Absent: A&O x's 3, appropriate affect, intact judgment & insight - Labs CBC & Chem 7: 10/04/19 05:30 10/04/19 05:30 Labs: Abnormal Lab Results - Last 24 Hours (Table) 10/03/19 10/03/19 10/03/19 Range/Units 07:21 07:21 12:19 RBC 2.88 L (3.80-5.40) m/uL Hgb 7.1 L (11.4-16.0) gm/dL Hct 24.6 L (34.0-46.0) % MCH 24.6 L (25.0-35.0) pg MCHC 28.8 L (31.0-37.0) g/dL RDW 18.4 H (11.5-15.5) % Plt Count 120 L (150-450) k/uL Lymphocytes # (1.0-4.8) k/uL Lymphocytes # (Manual) 0.44 L (1.0-4.8) k/uL Nucleated RBCs 1 H (0-0) /100 WBC ESR 35 H (0-20) mm/hr Chloride (98-107) mmol/L BUN (7-17) mg/dL Creatinine (0.52-1.04) mg/dL Glucose (74-99) mg/dL POC Glucose (mg/dL) 187 H (75-99) mg/dL Total Bilirubin (0.2-1.3) mg/dL Albumin (3.5-5.0) g/dL 10/03/19 10/03/19 10/04/19 Range/Units 16:54 20:26 05:30 RBC (3.80-5.40) m/uL Hgb (11.4-16.0) gm/dL Hct (34.0-46.0) % MCH (25.0-35.0) pg MCHC (31.0-37.0) g/dL RDW (11.5-15.5) % Plt Count (150-450) k/uL Lymphocytes # (1.0-4.8) k/uL Lymphocytes # (Manual) (1.0-4.8) k/uL Nucleated RBCs (0-0) /100 WBC ESR (0-20) mm/hr Chloride 109 H (98-107) mmol/L BUN 25 H (7-17) mg/dL Creatinine 1.19 H (0.52-1.04) mg/dL Glucose 145 H (74-99) mg/dL POC Glucose (mg/dL) 156 H 162 H (75-99) mg/dL Total Bilirubin 1.7 H (0.2-1.3) mg/dL Albumin 3.4 L (3.5-5.0) g/dL 10/04/19 10/04/19 Range/Units 05:30 06:10 RBC 3.04 L (3.80-5.40) m/uL Hgb 7.5 L (11.4-16.0) gm/dL Hct 25.7 L (34.0-46.0) % MCH 24.8 L (25.0-35.0) pg MCHC 29.3 L (31.0-37.0) g/dL RDW 18.7 H (11.5-15.5) % Plt Count 139 L (150-450) k/uL Lymphocytes # 0.6 L (1.0-4.8) k/uL Lymphocytes # (Manual) (1.0-4.8) k/uL Nucleated RBCs (0-0) /100 WBC ESR (0-20) mm/hr Chloride (98-107) mmol/L BUN (7-17) mg/dL Creatinine (0.52-1.04) mg/dL Glucose (74-99) mg/dL POC Glucose (mg/dL) 155 H (75-99) mg/dL Total Bilirubin (0.2-1.3) mg/dL Albumin (3.5-5.0) g/dL Assessment and Plan (1) Anemia Current Visit: Yes Status: Acute Code(s): D64.9 - ANEMIA, UNSPECIFIED SNOMED Code(s): 942947630 (2) High risk for readmission Current Visit: Yes Status: Acute Code(s): Z91.89 - OTH PERSONAL RISK FACTORS, NOT ELSEWHERE CLASSIFIED SNOMED Code(s): 731914063 (3) Low back pain Current Visit: No Status: Acute Code(s): M54.5 - LOW BACK PAIN SNOMED Code(s): 546210352 Plan: continue supportive care. Again, no narcotics to be given. Check CBC and CMP in a.m. History of transaminitis
[2019-10-04 11:11] LABS: Ferritin 36.5 ng/mL (10.0-291.0)
[2019-10-04 11:45] LABS: Glucose,Whole Blood 181 mg/dL (75-99)
[2019-10-04 11:50] LABS: % Iron Saturation 4.6 (12.00-45.00); Folate, Serum 11.8 ng/mL
[2019-10-04 12:01] LABS: Protein, Total 6.7 g/dL (6.2-8.2)
[2019-10-04 12:30] LABS: Immunoglobulin M 59.5 mg/dL (40.0-280.0)
[2019-10-04] MEDS: AMOXIC-POT CLAV 875-125MG 1 EACH TAB PO SCH ×2 (12:40→20:52)
[2019-10-04] MEDS: ISOSORBIDE MONONITRATE ER 30 MG TAB.ER.24H PO SCH (12:41)
[2019-10-04] MEDS: PREGABALIN 50 MG CAP PO SCH ×3 (12:41→20:53)
[2019-10-04] MEDS: METOPROLOL TARTRATE 25 MG TAB PO SCH ×2 (12:41→21:06)
[2019-10-04] MEDS: LOSARTAN 50 MG TAB PO SCH (12:41)
[2019-10-04] MEDS: ATORVASTATIN 80 MG TAB PO SCH (12:41)
[2019-10-04] MEDS: LIDOCAINE 5% PATCH TOPICAL SCH (12:42)
[2019-10-04] MEDS: FUROSEMIDE 10 MG/ML 4 ML VIAL IV SCH (12:42)
[2019-10-04] MEDS: CAPSAICIN 0.025% CREAM 60 GM TUBE TOPICAL SCH ×4 (13:07→20:52)
--- NOTE | 2019-10-04 13:15 | P.PN ---
Subjective Progress Note Date: 10/04/19 This is a 73-year-old female who follows regularly with Dr. Barksdale in the office. She has a history of coronary artery disease with prior bypass surgery, prior pacemaker implantation, history of paroxysmal atrial fibrillation with prior ablations in the past, renal failure requiring hemodialysis in the past, hypertension, diabetes, hyperlipidemia, hypothyroidism, she does have a fistula in her left arm. She presented to the hospital with symptoms of difficulty in breathing. Patient was diuresed on IV Lasix and through the night last night actually at diuresis significant amount of greater than 4000. She was given a pain medication this morning and is quite sedated and drowsy at the time of my examination. She denies any chest discomfort. Her hemoglobin today 7.5, her BUN 25 creatinine 1.1, blood pressure 160/50, ejection fraction by echo 55-60%. Objective - Vital Signs Vital signs: Vital Signs Temp 97.7 F 10/04/19 08:35 Pulse 98 10/04/19 08:35 Resp 20 10/04/19 08:35 BP 161/56 10/04/19 08:35 Pulse Ox 98 10/04/19 08:35 Intake & Output 10/03/19 10/04/19 10/04/19 18:59 06:59 18:59 Intake Total 480 Output Total 1900 2600 500 Balance -1420 -2600 -500 Weight 95 kg 95 kg Intake: Oral 480 Output: Urine 1900 2600 500 Other: Voiding Method Indwelling Catheter Indwelling Catheter - Exam Physical examination: Gen: This is a 73-year-old female. Patient is resting in bed and appears to be comfortable at time of evaluation. VS: Afebrile, heart rate 93, blood pressure 164/56, pulse ox 98% on room air HEENT: Head is atraumatic, normocephalic. Pupils equal, round. Sclerae is anicteric. NECK: Supple. No JVD. No lymphadenopathy. No thyromegaly. LUNGS: Diminished at the bases but otherwise clear to auscultation. No wheezes or rhonchi. No intercostal retractions. HEART: Regular rate and rhythm. No murmur. ABDOMEN: Soft. Bowel sounds are present. No masses. No tenderness. EXTREMITIES: No pedal edema. No calf tenderness. NEUROLOGICAL: Patient is sleepy, difficult to arouse - Labs CBC & Chem 7: 10/04/19 05:30 10/04/19 05:30 Labs: Abnormal Lab Results - Last 24 Hours (Table) 10/03/19 10/03/19 10/03/19 Range/Units 07:21 07:21 16:54 RBC (3.80-5.40) m/uL Hgb (11.4-16.0) gm/dL Hct (34.0-46.0) % MCH (25.0-35.0) pg MCHC (31.0-37.0) g/dL RDW (11.5-15.5) % Plt Count (150-450) k/uL Lymphocytes # (1.0-4.8) k/uL ESR 35 H (0-20) mm/hr Chloride (98-107) mmol/L BUN (7-17) mg/dL Creatinine (0.52-1.04) mg/dL Glucose (74-99) mg/dL POC Glucose (mg/dL) 156 H (75-99) mg/dL Iron 18 L (50-170) ug/dL % Saturation 4.60 L (12.00-45.00) Total Bilirubin (0.2-1.3) mg/dL Albumin (3.5-5.0) g/dL IgG (700.0-1600.0) mg/dL IgA (60.0-350.0) mg/dL Free [place] LC, Quant (0.33-1.94) mg/dL Free Lambda LC, Quant (0.57-2.63) mg/dL 10/03/19 10/04/19 10/04/19 Range/Units 20:26 05:30 05:30 RBC (3.80-5.40) m/uL Hgb (11.4-16.0) gm/dL Hct (34.0-46.0) % MCH (25.0-35.0) pg MCHC (31.0-37.0) g/dL RDW (11.5-15.5) % Plt Count (150-450) k/uL Lymphocytes # (1.0-4.8) k/uL ESR (0-20) mm/hr Chloride 109 H (98-107) mmol/L BUN 25 H (7-17) mg/dL Creatinine 1.19 H (0.52-1.04) mg/dL Glucose 145 H (74-99) mg/dL POC Glucose (mg/dL) 162 H (75-99) mg/dL Iron (50-170) ug/dL % Saturation (12.00-45.00) Total Bilirubin 1.7 H (0.2-1.3) mg/dL Albumin 3.4 L (3.5-5.0) g/dL IgG (700.0-1600.0) mg/dL IgA (60.0-350.0) mg/dL Free [place] LC, Quant 10.30 H (0.33-1.94) mg/dL Free Lambda LC, Quant 4.38 H (0.57-2.63) mg/dL 10/04/19 10/04/19 10/04/19 Range/Units 05:30 05:30 06:10 RBC 3.04 L (3.80-5.40) m/uL Hgb 7.5 L (11.4-16.0) gm/dL Hct 25.7 L (34.0-46.0) % MCH 24.8 L (25.0-35.0) pg MCHC 29.3 L (31.0-37.0) g/dL RDW 18.7 H (11.5-15.5) % Plt Count 139 L (150-450) k/uL Lymphocytes # 0.6 L (1.0-4.8) k/uL ESR (0-20) mm/hr Chloride (98-107) mmol/L BUN (7-17) mg/dL Creatinine (0.52-1.04) mg/dL Glucose (74-99) mg/dL POC Glucose (mg/dL) 155 H (75-99) mg/dL Iron (50-170) ug/dL % Saturation (12.00-45.00) Total Bilirubin (0.2-1.3) mg/dL Albumin (3.5-5.0) g/dL IgG 1720.0 H (700.0-1600.0) mg/dL IgA 673.0 H (60.0-350.0) mg/dL Free [place] LC, Quant (0.33-1.94) mg/dL Free Lambda LC, Quant (0.57-2.63) mg/dL 10/04/19 Range/Units 11:43 RBC (3.80-5.40) m/uL Hgb (11.4-16.0) gm/dL Hct (34.0-46.0) % MCH (25.0-35.0) pg MCHC (31.0-37.0) g/dL RDW (11.5-15.5) % Plt Count (150-450) k/uL Lymphocytes # (1.0-4.8) k/uL ESR (0-20) mm/hr Chloride (98-107) mmol/L BUN (7-17) mg/dL Creatinine (0.52-1.04) mg/dL Glucose (74-99) mg/dL POC Glucose (mg/dL) 181 H (75-99) mg/dL Iron (50-170) ug/dL % Saturation (12.00-45.00) Total Bilirubin (0.2-1.3) mg/dL Albumin (3.5-5.0) g/dL IgG (700.0-1600.0) mg/dL IgA (60.0-350.0) mg/dL Free [place] LC, Quant (0.33-1.94) mg/dL Free Lambda LC, Quant (0.57-2.63) mg/dL Assessment and Plan Plan: Assessment and plan: #1 Acute on chronic diastolic heart failure #2 Valvular heart disease with mild mitral regurgitation, moderate tricuspid regurgitation, moderate pulmonary regurgitation #3 Moderate to severe pulmonary hypertension #4 Chronic kidney disease stage III #5 History of atrial fibrillation, paroxysmal, with previous ablation, not on anticoagulation due to anemia #6 Status post permanent pacemaker #7 Hypertension #8 Hyperlipidemia #9 Diabetes mellitus type 2 #10 Hypothyroidism #11 Chronic anemia #12 Chronic thrombocytopenia Plan From cardiology's perspective, we'll discontinue the IV Lasix today and start the patient on oral diuretics. Increase the home dose of Bumex to 2 mg twice a day. Continue to monitor for 24 hours. DNP note has been reviewed, I agree with a documented findings and plan of care. Patient was seen and examined.
--- NOTE | 2019-10-04 14:26 | P.PN ---
Subjective Progress Note Date: 10/04/19 Principal diagnosis: Anemia, Cellulitis Patient is sleeping, awakens to stimuli but poor historian Objective - Vital Signs Vital signs: Vital Signs Temp 97.7 F 10/04/19 08:35 Pulse 98 10/04/19 08:35 Resp 20 10/04/19 08:35 BP 161/56 10/04/19 08:35 Pulse Ox 98 10/04/19 08:35 Intake & Output 10/03/19 10/04/19 10/04/19 18:59 06:59 18:59 Intake Total 480 Output Total 1900 2600 500 Balance -1420 -2600 -500 Weight 95 kg 95 kg Intake: Oral 480 Output: Urine 1900 2600 500 Other: Voiding Method Indwelling Catheter Indwelling Catheter - Exam Gen: alert resting Head: NCNT Neck: Supple Lungs: Diminished at bases Heart: RRR Abd: soft, NT Ext: Chronic vascular changes, edema Mood: Calm - Labs CBC & Chem 7: 10/04/19 05:30 10/04/19 05:30 Labs: Abnormal Lab Results - Last 24 Hours (Table) 10/03/19 10/03/19 10/03/19 Range/Units 07:21 07:21 16:54 RBC (3.80-5.40) m/uL Hgb (11.4-16.0) gm/dL Hct (34.0-46.0) % MCH (25.0-35.0) pg MCHC (31.0-37.0) g/dL RDW (11.5-15.5) % Plt Count (150-450) k/uL Lymphocytes # (1.0-4.8) k/uL ESR 35 H (0-20) mm/hr Chloride (98-107) mmol/L BUN (7-17) mg/dL Creatinine (0.52-1.04) mg/dL Glucose (74-99) mg/dL POC Glucose (mg/dL) 156 H (75-99) mg/dL Iron 18 L (50-170) ug/dL % Saturation 4.60 L (12.00-45.00) Total Bilirubin (0.2-1.3) mg/dL Albumin (3.5-5.0) g/dL IgG (700.0-1600.0) mg/dL IgA (60.0-350.0) mg/dL Free [place] LC, Quant (0.33-1.94) mg/dL Free [place]ambda LC, Quant (0.57-2.63) mg/dL 10/03/19 10/04/19 10/04/19 Range/Units 20:26 05:30 05:30 RBC (3.80-5.40) m/uL Hgb (11.4-16.0) gm/dL Hct (34.0-46.0) % MCH (25.0-35.0) pg MCHC (31.0-37.0) g/dL RDW (11.5-15.5) % Plt Count (150-450) k/uL Lymphocytes # (1.0-4.8) k/uL ESR (0-20) mm/hr Chloride 109 H (98-107) mmol/L BUN 25 H (7-17) mg/dL Creatinine 1.19 H (0.52-1.04) mg/dL Glucose 145 H (74-99) mg/dL POC Glucose (mg/dL) 162 H (75-99) mg/dL Iron (50-170) ug/dL % Saturation (12.00-45.00) Total Bilirubin 1.7 H (0.2-1.3) mg/dL Albumin 3.4 L (3.5-5.0) g/dL IgG (700.0-1600.0) mg/dL IgA (60.0-350.0) mg/dL Free [place] LC, Quant 10.30 H (0.33-1.94) mg/dL Free [place] LC, Quant 4.38 H (0.57-2.63) mg/dL 10/04/19 10/04/19 10/04/19 Range/Units 05:30 05:30 06:10 RBC 3.04 L (3.80-5.40) m/uL Hgb 7.5 L (11.4-16.0) gm/dL Hct 25.7 L (34.0-46.0) % MCH 24.8 L (25.0-35.0) pg MCHC 29.3 L (31.0-37.0) g/dL RDW 18.7 H (11.5-15.5) % Plt Count 139 L (150-450) k/uL Lymphocytes # 0.6 L (1.0-4.8) k/uL ESR (0-20) mm/hr Chloride (98-107) mmol/L BUN (7-17) mg/dL Creatinine (0.52-1.04) mg/dL Glucose (74-99) mg/dL POC Glucose (mg/dL) 155 H (75-99) mg/dL Iron (50-170) ug/dL % Saturation (12.00-45.00) Total Bilirubin (0.2-1.3) mg/dL Albumin (3.5-5.0) g/dL IgG 1720.0 H (700.0-1600.0) mg/dL IgA 673.0 H (60.0-350.0) mg/dL Free [place] LC, Quant (0.33-1.94) mg/dL Free [place] LC, Quant (0.57-2.63) mg/dL 10/04/19 Range/Units 11:43 RBC (3.80-5.40) m/uL Hgb (11.4-16.0) gm/dL Hct (34.0-46.0) % MCH (25.0-35.0) pg MCHC (31.0-37.0) g/dL RDW (11.5-15.5) % Plt Count (150-450) k/uL Lymphocytes # (1.0-4.8) k/uL ESR (0-20) mm/hr Chloride (98-107) mmol/L BUN (7-17) mg/dL Creatinine (0.52-1.04) mg/dL Glucose (74-99) mg/dL POC Glucose (mg/dL) 181 H (75-99) mg/dL Iron (50-170) ug/dL % Saturation (12.00-45.00) Total Bilirubin (0.2-1.3) mg/dL Albumin (3.5-5.0) g/dL IgG (700.0-1600.0) mg/dL IgA (60.0-350.0) mg/dL Free [place] LC, Quant (0.33-1.94) mg/dL Free [place] LC, Quant (0.57-2.63) mg/dL Assessment and Plan Plan: Assessment and Recommendations: Normocytic Anemia: Likely multifactoral recent blood loss and renal dz - Acute on Chronic - GI Evaluation regarding Iron deficiency anemia component and recent GI blood loss Mild thrombocytopenia: - This appears to have started in August of this year. This was during her admission with acute hepatitis, encephalopathy and LLE cellulitis. - Likely secondary to inflammation and medications (Tramadol/antibiotics) - POssible component of underlying liver disease Plan: - Ultrasound of the liver to assess for liver damage recent acute hepatitis - She is quite lethargic, although awakens, concern for encephalopathy check ammonia level Physician Attest: I have completed the full history and physical and developed the complete assessment and plan. Agree with dictation, dictated as a scribe
[2019-10-04 16:36] LABS: Rheumatoid Factor, Qnt <4 IU/mL (0-15)
[2019-10-04 16:45] LABS: Glucose,Whole Blood 218 mg/dL (75-99)
--- NOTE | 2019-10-04 16:55 | US ---
EXAMINATION TYPE: US abdomen limited DATE OF EXAM: 10/04/2019 COMPARISON: NONE CLINICAL HISTORY: Recent hepatitis, focus liver. Liver Exam limitations due to body habitus patient u nable to roll or hold breath. EXAM MEASUREMENTS: Liver Length: 18.2 cm Gallbladder Wall: Surgically absent cm CBD: 1.5 cm Right Kidney: 10.6 x 4.5 x 4.4 cm Pancreas: Tail obscured by overlying bowel gas Liver: No distinct periportal brightness although limited evaluation. Gallbladder: Surgically absent Evidence for sonographic Singh's sign: No CBD: Dilated Right Kidney: Limited due to bowel gas. Mild cortical atrophy. IMPRESSION: Exam limitations as detailed above. Somewhat limited evaluation of the liver however no s ignificant periportal brightness as can be seen in acute hepatitis. The common bile duct is above exp ected normal limits despite this patient's postcholecystectomy status and could be further evaluated with MRCP.
[2019-10-04 20:13] LABS: Glucose,Whole Blood 208 mg/dL (75-99)
[2019-10-04] MEDS: BUMETANIDE 1 MG TAB PO SCH (20:52)
--- NOTE | 2019-10-04 21:22 | P.CNNES ---
History of Present Illness Consult date: 10/04/19 Chief complaint: persistent altered mental status delirium History of Present Illness: This is a new neurology consult requested for further advice and recommendations a 73-year-old female with a complex medical history. The patient's medical history consists of chronic atrial fibrillation with pacemaker. Stroke risk factors include coronary artery disease, dyslipidemia hypertension, type 2 diabetes. Patient has a history noted in the records for lupus. The patient came in on admission for increasing encephalopathy. The patient does have a history of prior episodes of metabolic encephalopathy thought to be due to opioid dependency. The computed tomography scan of the head shows no evidence of any acute ischemic or hemorrhagic infarct at this time. EKG on admission did confirm atrial fibrillation with rate controlled at 88 bpm Chest chest x-ray was significant for CHF exacerbation Pertinent labs include an elevated BNP on admission of 3660. Troponin 0.018. BUNs creatinine 35 and 1.62. Echo in 2016 showed an ejection fraction of 55-60% along with mild mitral valve regurgitation. Moderate tricuspid regurgitation. Moderate to severe pulmonary hypertension. Moderate pulmonary regurgitation. Review of her records also indicate that is recently in August she was admitted for cellulitis of the lower extremities along with complications with narcotic induced encephalopathy. The patient was anemic during that admission required transfusion with 2 packs of RBCs. There is a note of questionable acute hepatitis. Currently the patient is still encephalopathic. She is unable to follow any commands. She is repeating oh my God oh my God oh my God.based on my evaluation, the patient isn't significant increased risk for aspiration. A bedside swallow was performed this evening at bedside. The patient did choke after drinking water. Review of Systems unable to obtain a formal 10 point review of systems at this time due to the patient's cognitive decline. Past Medical History Past Medical History: Atrial Fibrillation, Coronary Artery Disease (CAD), Heart Failure, Diabetes Mellitus, Deep Vein Thrombosis (DVT), Hyperlipidemia, Hypertension, Renal Disease, Thyroid Disorder Additional Past Medical History / Comment(s): neuropathy,lupus, back pain, BACK WOUND-Healed, USES CANE , CATARACT bilat. History of Any Multi-Drug Resistant Organisms: VRE Date of last positivie culture/infection: 04/01/16 MDRO Source:: back Past Surgical History: Appendectomy, Back Surgery, Breast Surgery, Cholecys tectomy, Coronary Bypass/CABG, Pacemaker Additional Past Surgical History / Comment(s): thyroidectomy. triple bypass 2000, CATARACT bilat EYE 11/2016, LUE dialysis port. 5 back sx. pt had 2 ablations in [place] for afib- unsuccessful. left arm fistula. Past Anesthesia/Blood Transfusion Reactions: No Reported Reaction Additional Past Anesthesia/Blood Transfusion Reaction / Comment(s): CLAUSTROPHOBIA. HAD A BLOOD TRANSFUSION 1968-NO REACTION. Type of Cardiac Device: Permanent Pacemaker Device Placement Date:: january 2018 Past Psychological History: No Psychological Hx Reported Additional Psychological History / Comment(s): lives with grandson. independent and uses a cane. pt states she still drives. Smoking Status: Former smoker Past Alcohol Use History: None Reported Additional Past Alcohol Use History / Comment(s): STARTED SMOKING AT AGE 16 QUIT 2000 WAS SMOKING 3 PPD BY TIME SHE QUIT Past Drug Use History: None Reported - Past Family History Father Family Medical History: Cancer Additional Family Medical History / Comment(s): prostate cancer Mother Family Medical History: Cancer, Congestive Heart Failure (CHF), Diabetes Mellitus, Hyperlipidemia, Hypertension, Osteoarthritis (OA) Additional Family Medical History / Comment(s): colon cancer Brother(s) Family Medical History: Coronary Artery Disease (CAD), Deep Vein Thrombosis (DVT) Additional Family Medical History / Comment(s): back surgery Sister(s) Family Medical History: Hyperlipidemia Additional Family Medical History / Comment(s): thyroid cancer Medications and Allergies Home Medications Medication Instructions Recorded Confirmed Type Levothyroxine Sodium [Synthroid] 125 mcg PO DAILY 11/27/15 10/01/19 History Insulin NPL/Insulin Lispro See Protocol SQ AC-TID 12/03/16 10/01/19 History [humaLOG MIX 75-25 VIAL] Aspirin EC [Ecotrin Low Dose] 81 mg PO DAILY 09/09/18 08/23/19 History Losartan [Cozaar] 50 mg PO DAILY 09/09/18 10/01/19 History oxyCODONE-APAP 10-325MG [Percocet 1 tab PO Q6H PRN 01/26/19 10/01/19 History 10-325 mg] Atorvastatin [Lipitor] 80 mg PO DAILY #30 tab 01/27/19 10/01/19 Rx Metoprolol Tartrate [Lopressor] 25 mg PO BID #60 tab 01/27/19 10/01/19 Rx Nitroglycerin Sl Tabs [Nitrostat] 0.4 mg SUBLINGUAL Q5M PRN #50 tab 01/27/19 10/01/19 Rx Isosorbide Mononitrate ER [Imdur] 30 mg PO DAILY #7 tab 02/24/19 10/01/19 Rx Pantoprazole Sodium [Protonix] 40 mg PO BID 05/08/19 10/01/19 History Silver Sulfadiazine 1 applic TOPICAL DAILY 08/23/19 10/01/19 History Baclofen 10 mg PO BID PRN #10 09/05/19 10/01/19 Rx Amoxic-Pot Clav 875-125Mg 1 tab PO BID 10/01/19 10/01/19 History [Augmentin 875-125] Bumetanide [Bumex] 1 mg PO BID 10/01/19 10/01/19 History Ketorolac [Toradol] 10 mg PO Q6H 10/01/19 10/01/19 History Pregabalin [Lyrica] 50 mg PO TID 10/01/19 10/01/19 History Allergies Allergy/AdvReac Type Severity Reaction Status Date / Time No Known Allergies Allergy Verified 10/01/19 16:52 Physical Examination - Vital Signs Vital Signs: Vital Signs Temp Pulse Resp BP Pulse Ox 10/04/19 17:34 98.3 F 101 H 16 137/54 95 10/04/19 12:00 98.3 F 105 H 16 145/69 98 10/04/19 08:35 97.7 F 98 16 161/56 98 10/04/19 04:00 97.7 F 110 H 20 159/72 94 L 10/04/19 00:00 98.2 F 93 20 143/63 95 Intake and Output 10/04/19 10/04/19 10/04/19 06:59 14:59 22:59 Intake Total 120 Output Total 2600 500 1050 Balance -2600 -500 -930 Intake: Oral 120 Output: Urine 2600 500 1050 Other: Voiding Method Indwelling Catheter Indwelling Catheter Indwelling Catheter Weight 95 kg 95 kg Gen. physical exam: Patient lethargic. Rapid respirations noted with mild use of accessory muscles. HEENT: Mucous membranes are slightly pale. Sclera nonicteric. Pupils 2 mm sluggishly reactive to light but symmetric. Neck appears supple. Chest: Coarse breath sounds throughout. Cardiac: Regular rate and rhythm noted. No no murmurs noted. Pulses radial and pedal pulses appear equal and symmetric. Extremities vascular disease is noted with poor perfusion in the lower extremities. Mild nonpitting edema noted both in the hands and feet. Skin: Tattoos noted over the hands discoloration noted in lower extremities secondary to vascular disease. neurological exam: Mental status: Patient lethargic and unable to follow commands. Speech is mildly dysarthric. Perseveration noted. Pupils: 2 mm minimally reactive to light or accommodation. Symmetric. Cranial nerves: Doll's eye movement intact. No nystagmus noted on roving eye movements. Face is appears symmetric. Gag reflex appears diminished. Tongue appears midline without fasciculations or deviation. Motor examination generalized hypotonia noted throughout. Generalized weakness minimal spontaneous movement of the upper or lower extremities observed. Patient does with withdrawal however more on the right lower extremity to tactile plantar stimulation compared to the left. Unable to do formal strength testing due to patient's cognition. Deep tendon reflexes: Absent over biceps brachial radialis. Patellar reflexes absent. Ankle jerks absent. Plantar responses are withdrawal bilaterally. Sensory: Appropriately withdraws to tactile stimulation at the feet. Coordination and gait examination deferred Results - Laboratory Findings CBC and BMP: 10/04/19 05:30 10/04/19 05:30 Abnormal Lab Findings: Abnormal Labs 10/01/19 10/01/19 10/01/19 12:00 12:00 12:00 WBC RBC 2.66 L Hgb 6.4 L* Hct 21.9 L MCH 24.1 L MCHC 29.2 L RDW 18.8 H Plt Count 128 L Lymphocytes # Lymphocytes # (Manual) 0.79 L Nucleated RBCs 1 H ESR PT 12.3 H INR 1.2 H D-Dimer 1.40 H Sodium 135 L Chloride BUN 35 H Creatinine 1.62 H Glucose 156 H POC Glucose (mg/dL) Calcium 7.7 L Iron % Saturation Erythropoietin Total Bilirubin 1.4 H Alkaline Phosphatase 148 H Lactate Dehydrogenase Albumin Urine Protein IgG IgA Free Florin LC, Quant Free Lambda LC, Quant Crossmatch 10/01/19 10/01/19 10/01/19 12:00 13:35 16:26 WBC RBC Hgb Hct MCH MCHC RDW Plt Count Lymphocytes # Lymphocytes # (Manual) Nucleated RBCs ESR PT INR D-Dimer Sodium Chloride BUN Creatinine Glucose POC Glucose (mg/dL) 155 H Calcium Iron % Saturation Erythropoietin Total Bilirubin Alkaline Phosphatase Lactate Dehydrogenase Albumin Urine Protein Trace H IgG IgA Free Florin LC, Quant Free Lambda LC, Quant Crossmatch See Detail 10/01/19 10/01/19 10/02/19 18:04 20:19 06:42 WBC 3.5 L RBC 2.66 L Hgb 6.7 L* Hct 22.4 L MCH MCHC 30.1 L RDW 18.8 H Plt Count 133 L Lymphocytes # Lymphocytes # (Manual) 0.77 L Nucleated RBCs ESR PT INR D-Dimer Sodium Chloride BUN Creatinine Glucose POC Glucose (mg/dL) 228 H 119 H Calcium Iron % Saturation Erythropoietin Total Bilirubin Alkaline Phosphatase Lactate Dehydrogenase Albumin Urine Protein IgG IgA Free Florin LC, Quant Free Lambda LC, Quant Crossmatch 10/02/19 10/02/19 10/02/19 07:35 11:31 16:59 WBC RBC 3.00 L Hgb 7.6 L Hct 25.7 L MCH MCHC 29.4 L RDW 18.3 H Plt Count 115 L Lymphocytes # Lymphocytes # (Manual) Nucleated RBCs ESR PT INR D-Dimer Sodium Chloride BUN Creatinine Glucose POC Glucose (mg/dL) 191 H 123 H Calcium Iron % Saturation Erythropoietin Total Bilirubin Alkaline Phosphatase Lactate Dehydrogenase Albumin Urine Protein IgG IgA Free Florin LC, Quant Free Lambda LC, Quant Crossmatch 10/02/19 10/03/19 10/03/19 20:10 06:58 07:21 WBC RBC 2.88 L Hgb 7.1 L Hct 24.6 L MCH 24.6 L MCHC 28.8 L RDW 18.4 H Plt Count 120 L Lymphocytes # Lymphocytes # (Manual) 0.44 L Nucleated RBCs 1 H ESR PT INR D-Dimer Sodium Chloride BUN Creatinine Glucose POC Glucose (mg/dL) 195 H 149 H Calcium Iron % Saturation Erythropoietin Total Bilirubin Alkaline Phosphatase Lactate Dehydrogenase Albumin Urine Protein IgG IgA Free Florin LC, Quant Free Lambda LC, Quant Crossmatch 10/03/19 10/03/19 10/03/19 07:21 07:21 07:21 WBC RBC Hgb Hct MCH MCHC RDW Plt Count Lymphocytes # Lymphocytes # (Manual) Nucleated RBCs ESR 35 H PT INR D-Dimer Sodium Chloride BUN 30 H Creatinine 1.32 H Glucose 136 H POC Glucose (mg/dL) Calcium 8.2 L Iron 18 L % Saturation 4.60 L Erythropoietin 86.58 H Total Bilirubin Alkaline Phosphatase Lactate Dehydrogenase 681 H Albumin 3.4 L Urine Protein IgG IgA Free Florin LC, Quant Free Lambda LC, Quant Crossmatch 10/03/19 10/03/19 10/03/19 12:19 16:54 20:26 WBC RBC Hgb Hct MCH MCHC RDW Plt Count Lymphocytes # Lymphocytes # (Manual) Nucleated RBCs ESR PT INR D-Dimer Sodium Chloride BUN Creatinine Glucose POC Glucose (mg/dL) 187 H 156 H 162 H Calcium Iron % Saturation Erythropoietin Total Bilirubin Alkaline Phosphatase Lactate Dehydrogenase Albumin Urine Protein IgG IgA Free Florin LC, Quant Free Lambda LC, Quant Crossmatch 10/04/19 10/04/19 10/04/19 05:30 05:30 05:30 WBC RBC Hgb Hct MCH MCHC RDW Plt Count Lymphocytes # Lymphocytes # (Manual) Nucleated RBCs ESR PT INR D-Dimer Sodium Chloride 109 H BUN 25 H Creatinine 1.19 H Glucose 145 H POC Glucose (mg/dL) Calcium Iron % Saturation Erythropoietin Total Bilirubin 1.7 H Alkaline Phosphatase Lactate Dehydrogenase Albumin 3.4 L Urine Protein IgG 1720.0 H IgA 673.0 H Free Florin LC, Quant 10.30 H Free Lambda LC, Quant 4.38 H Crossmatch 10/04/19 10/04/19 10/04/19 05:30 06:10 11:43 WBC RBC 3.04 L Hgb 7.5 L Hct 25.7 L MCH 24.8 L MCHC 29.3 L RDW 18.7 H Plt Count 139 L Lymphocytes # 0.6 L Lymphocytes # (Manual) Nucleated RBCs ESR PT INR D-Dimer Sodium Chloride BUN Creatinine Glucose POC Glucose (mg/dL) 155 H 181 H Calcium Iron % Saturation Erythropoietin Total Bilirubin Alkaline Phosphatase Lactate Dehydrogenase Albumin Urine Protein IgG IgA Free Florin LC, Quant Free Lambda LC, Quant Crossmatch 10/04/19 10/04/19 16:44 20:11 WBC RBC Hgb Hct MCH MCHC RDW Plt Count Lymphocytes # Lymphocytes # (Manual) Nucleated RBCs ESR PT INR D-Dimer Sodium Chloride BUN Creatinine Glucose POC Glucose (mg/dL) 218 H 208 H Calcium Iron % Saturation Erythropoietin Total Bilirubin Alkaline Phosphatase Lactate Dehydrogenase Albumin Urine Protein IgG IgA Free Florin LC, Quant Free Lambda LC, Quant Crossmatch - Diagnostic Findings EKG: report reviewed Chest x-ray: report reviewed CT scan - abdomen: report reviewed (computed tomography scan of the head reviewed.) Assessment and Plan Assessment: This is a new neurology consult requested for further evaluation of encephalopathy in a 73-year-old female with a complex medical history. Patient has significant stroke risk factors along with a history of opioid dependency. Of particular concern is the fact that this patient is been noted to have moderate to severe pulmonary hypertension atrial fib and chronic opioid use. This patient's appearance this evening did show labored breathing and discolora tion of the mucous membranes raising concern for hypoxemia. This patient would be at risk for obesity hypoventilation syndrome. With her history of obesity, complex heart disease with atrial fibrillation she would be increased risk for complex sleep apnea especially due to her opioid usage. I'm also concerned with this history of lupus. This needs to be confirmed and in the differential BILL ADJUSTER LUPUS would need to be added. Central nervous system effects of lupus can present with altered mental status. If the patient does have a lupus exacerbation this patient may be warranted need for steroids. This patient also is at significant increased risk for aspiration. This patient should undergo a more formal swallow evaluation nutrition consult in the morning. Maintain nothing by mouth status tonight due to her coughing after drinking water at bedside swallow eval. Summary 1. Acute on chronic diastolic heart failure 2. Moderate to severe pulmonary hypertension 3. Chronic kidney disease stage III with chronic anemia of illness. 4. Atrial fibrillation with pacemaker 5. Chronic opioid dependency increased risk for complex sleep apnea 6. Stroke risk factors: Hypertension. Type 2 diabetes. Dyslipidemia. 7. Chronic thrombocytopenia 8. Persistent encephalopathy Plan 1. EEG in the morning to rule out subclinical seizure activity 2. ABG tonight due to suspicion for obesity hypoventilation syndrome. This patient could benefit from BiPAP if ABGs show she is hypoxic with CO2 retention. Portable chest x-ray tonight to rule out possible aspiration. 3. Formal swallow evaluation and morning with nutrition consult. I believe this patient may be in need of NG tube placement and nutritional support. 4. Labs tonight: Repeat ammonia level sed rate CRP. Amylase level. B12 and folate. TSH free T3 and total T3. nurse will notify Dr. Jud cabrera of results. 5. Due to this patient's chronic medical condition, this patient would be a candidate for [facility] facility on discharge. Recommend case management involvement. 6. This patient's history of chronic back pain should be further evaluated with computed tomography scan of the spine noncontrast. Due to the pacemaker this patient's not candidate for a MRI. This patient may have lower lumbar fractures, disc disease that may need to be addressed neurosurgically. This patient also could benefit from a pain management consult what she is clear to this encephalopathy. thank you for this consultation. This patient's prognosis remains very guarded. Further recommendations will be made as this case evolves. Marge Renner M.D. Board certified in neurology and sleep medicine
--- NOTE | 2019-10-04 21:27 | XR ---
EXAMINATION TYPE: XR chest 1V portable DATE OF EXAM: 10/04/2019 COMPARISON: 10/01/2019 INDICATION: Possible aspiration TECHNIQUE: Single frontal view of the chest is obtained. FINDINGS: The heart size is enlarged. The pulmonary vasculature is lightly prominent. The right main pulmonary arteries prominent, present previously. Some mild increased lung markings are present diffusely IMPRESSION: 1. Cardiomegaly. 2. Some mild pulmonary prominence may be present. 3. Exam is stable from early comparison
--- NOTE | 2019-10-04 21:33 | P.CONS ---
History of Present Illness - Reason for Consult Consult date: 10/04/19 Anemia Requesting physician: German Bernabe - Chief Complaint Shortness of breath - History of Present Illness 73-year-old female with a past medical history significant for atrial fibrillation, heart failure, coronary artery disease, DVT, hyperlipidemia, hypertension, hypothyroidism and chronic back pain who presented to the hospital due to shortness of breath. Of note patient is extremely lethargic and history is been taken on review of the medical record and discussion with the care team. The patient has been found to have an iron deficiency anemia and consult was pa chen for further evaluation. Currently evaluation has been performed by the hematology service. Patient is lethargic secondary to narcotic administration. She was previously found to be anemic on recent hospitalization at which time she reported recent colonoscopy 2 years ago at outside facility. Denied any signs or symptoms of GI bleeding. Does have laboratory evaluation significant for an iron deficiency anemia with negative stool testing for occult blood. Hemoglobin currently 7.5 with WBC 4 and platelet count of 139,000. Ultrasound of the abdomen did show a slightly dilated CBD and the postcholecystectomy state with normal liver enzymes. Review of Systems ROS unobtainable: due to mental status (Review of systems could not be obtained due to altered mental status.) Past Medical History Past Medical History: Atrial Fibrillation, Coronary Artery Disease (CAD), Heart Failure, Diabetes Mellitus, Deep Vein Thrombosis (DVT), Hyperlipidemia, Hypertension, Renal Disease, Thyroid Disorder Additional Past Medical History / Comment(s): neuropathy,lupus, back pain, BACK WOUND-Healed, USES CANE , CATARACT bilat. 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 triple bypass 2000, CATARACT bilat EYE 11/2016, LUE dialysis port. 5 back sx. pt had 2 ablations in [place] for afib- unsuccessful. left arm fistula. Past Anesthesia/Blood Transfusion Reactions: No Reported Reaction Additional Past Anesthesia/Blood Transfusion Reaction / Comm: CLAUSTROPHOBIA. HAD A BLOOD TRANSFUSION 1968-NO REACTION. Type of Cardiac Device: Permanent Pacemaker Device Placement Date:: january 2018 Past Psychological History: No Psychological Hx Reported Additional Psychological History / Comment(s): lives with grandson. independent and uses a cane. pt states she still drives. Smoking Status: Former smoker Past Alcohol Use History: None Reported Additional Past Alcohol Use History / Comment(s): STARTED SMOKING AT AGE 16 QUIT 2000 WAS SMOKING 3 PPD BY TIME SHE QUIT Past Drug Use History: None Reported - Past Family History Father Family Medical History: Cancer Additional Family Medical History / Comment(s): prostate cancer Mother Family Medical History: Cancer, Congestive Heart Failure (CHF), Diabetes Mellitus, Hyperlipidemia, Hypertension, Osteoarthritis (OA) Additional Family Medical History / Comment(s): colon cancer Brother(s) Family Medical History: Coronary Artery Disease (CAD), Deep Vein Thrombosis (DVT) Additional Family Medical History / Comment(s): back surgery Sister(s) Family Medical History: Hyperlipidemia Additional Family Medical History / Comment(s): thyroid cancer Medications and Allergies Home Medications Medication Instructions Recorded Confirmed Type Levothyroxine Sodium [Synthroid] 125 mcg PO DAILY 11/27/15 10/01/19 History Insulin NPL/Insulin Lispro See Protocol SQ AC-TID 12/03/16 10/01/19 History [humaLOG MIX 75-25 VIAL] Aspirin EC [Ecotrin Low Dose] 81 mg PO DAILY 09/09/18 08/23/19 History Losartan [Cozaar] 50 mg PO DAILY 09/09/18 10/01/19 History oxyCODONE-APAP 10-325MG [Percocet 1 tab PO Q6H PRN 01/26/19 10/01/19 History 10-325 mg] Atorvastatin [Lipitor] 80 mg PO DAILY #30 tab 01/27/19 10/01/19 Rx Metoprolol Tartrate [Lopressor] 25 mg PO BID #60 tab 01/27/19 10/01/19 Rx Nitroglycerin Sl Tabs [Nitrostat] 0.4 mg SUBLINGUAL Q5M PRN #50 tab 01/27/19 10/01/19 Rx Isosorbide Mononitrate ER [Imdur] 30 mg PO DAILY #7 tab 02/24/19 10/01/19 Rx Pantoprazole Sodium [Protonix] 40 mg PO BID 05/08/19 10/01/19 History Silver Sulfadiazine 1 applic TOPICAL DAILY 08/23/19 10/01/19 History Baclofen 10 mg PO BID PRN #10 09/05/19 10/01/19 Rx Amoxic-Pot Clav 875-125Mg 1 tab PO BID 10/01/19 10/01/19 History [Augmentin 875-125] Bumetanide [Bumex] 1 mg PO BID 10/01/19 10/01/19 History Ketorolac [Toradol] 10 mg PO Q6H 10/01/19 10/01/19 History Pregabalin [Lyrica] 50 mg PO TID 10/01/19 10/01/19 History Allergies Allergy/AdvReac Type Severity Reaction Status Date / Time No Known Allergies Allergy Verified 10/01/19 16:52 Physical Exam Vitals: Vital Signs Temp Pulse Resp BP Pulse Ox 10/04/19 08:35 97.7 F 98 16 161/56 98 10/04/19 04:00 97.7 F 110 H 20 159/72 94 L 10/04/19 00:00 98.2 F 93 20 143/63 95 10/03/19 20:00 97.4 F L 69 18 117/62 96 10/03/19 19:50 97 10/03/19 15:29 97.4 F L 77 18 155/72 93 L 10/03/19 11:12 98.2 F 83 16 144/59 94 L Intake and Output 10/03/19 10/04/19 10/04/19 22:59 06:59 14:59 Intake Total 480 Output Total 1500 2600 Balance -1020 -2600 Intake: Oral 480 Output: Urine 1500 2600 Other: Voiding Method Indwelling Catheter Indwelling Catheter Indwelling Catheter Weight 95 kg On physical examination, patient appears comfortable in no apparent distress. HEAD: Normocephalic, atraumatic. EYES: No scleral icterus. No conjunctival injection. MOUTH: No lesions, tongue midline. NECK: Trachea midline, no gross abnormalities. CHEST: Clear to auscultation with no wheezing or rhonchi appreciated. HEART: Regular rate and rhythm. ABDOMEN: Soft, obese. Bowel sounds are positive. No organomegaly. No guarding or rigidity. EXTREMITIES: No pedal edema. SKIN: No rashes, no jaundice. NEUROLOGIC: Somnolent, does respond to painful stimuli, not interactive. Results CBC & Chem 7: 10/04/19 05:30 10/04/19 05:30 Labs: Abnormal Lab Results - Last 24 Hours (Table) 10/03/19 10/03/19 10/03/19 Range/Units 07:21 07:21 12:19 RBC (3.80-5.40) m/uL Hgb (11.4-16.0) gm/dL Hct (34.0-46.0) % MCH (25.0-35.0) pg MCHC (31.0-37.0) g/dL RDW (11.5-15.5) % Plt Count (150-450) k/uL Lymphocytes # (1.0-4.8) k/uL Lymphocytes # (Manual) 0.44 L (1.0-4.8) k/uL Nucleated RBCs 1 H (0-0) /100 WBC ESR 35 H (0-20) mm/hr Chloride (98-107) mmol/L BUN (7-17) mg/dL Creatinine (0.52-1.04) mg/dL Glucose (74-99) mg/dL POC Glucose (mg/dL) 187 H (75-99) mg/dL Total Bilirubin (0.2-1.3) mg/dL Albumin (3.5-5.0) g/dL 10/03/19 10/03/19 10/04/19 Range/Units 16:54 20:26 05:30 RBC (3.80-5.40) m/uL Hgb (11.4-16.0) gm/dL Hct (34.0-46.0) % MCH (25.0-35.0) pg MCHC (31.0-37.0) g/dL RDW (11.5-15.5) % Plt Count (150-450) k/uL Lymphocytes # (1.0-4.8) k/uL Lymphocytes # (Manual) (1.0-4.8) k/uL Nucleated RBCs (0-0) /100 WBC ESR (0-20) mm/hr Chloride 109 H (98-107) mmol/L BUN 25 H (7-17) mg/dL Creatinine 1.19 H (0.52-1.04) mg/dL Glucose 145 H (74-99) mg/dL POC Glucose (mg/dL) 156 H 162 H (75-99) mg/dL Total Bilirubin 1.7 H (0.2-1.3) mg/dL Albumin 3.4 L (3.5-5.0) g/dL 10/04/19 10/04/19 Range/Units 05:30 06:10 RBC 3.04 L (3.80-5.40) m/uL Hgb 7.5 L (11.4-16.0) gm/dL Hct 25.7 L (34.0-46.0) % MCH 24.8 L (25.0-35.0) pg MCHC 29.3 L (31.0-37.0) g/dL RDW 18.7 H (11.5-15.5) % Plt Count 139 L (150-450) k/uL Lymphocytes # 0.6 L (1.0-4.8) k/uL Lymphocytes # (Manual) (1.0-4.8) k/uL Nucleated RBCs (0-0) /100 WBC ESR (0-20) mm/hr Chloride (98-107) mmol/L BUN (7-17) mg/dL Creatinine (0.52-1.04) mg/dL Glucose (74-99) mg/dL POC Glucose (mg/dL) 155 H (75-99) mg/dL Total Bilirubin (0.2-1.3) mg/dL Albumin (3.5-5.0) g/dL US - abdomen: report reviewed (Ultrasound of the abdomen with mildly dilated common bile duct at 1.5 cm in the postcholecystectomy state was some hepatitis noted) Assessment and Plan (1) Iron deficiency anemia Narrative/Plan: 73-year-old female admitted for shortness of breath, with multiple medical comorbidities and noted to have an iron deficiency anemia. The patient is undergoing evaluation by the hematology service. No reports of GI bleeding. P er the note from prior admission patient had reported a colonoscopy 2 years ago at outside facility. Stool testing has been negative for blood. Current Visit: Yes Status: Acute Code(s): D50.9 - IRON DEFICIENCY ANEMIA, UN SPECIFIED SNOMED Code(s): 59594122 Plan: Supportive care Okay for diet as tolerated Continue to monitor hemoglobin and hematocrit and transfuse as needed Iron supplementation recommended Patient did not fit for endoscopic evaluation at this time given altered mental status in the setting of narcotic use Would recommend further evaluation by hematology and likely would benefit from bone marrow biopsy prior to discharge Stool testing negative for blood, with no reports of GI bleeding, however can discuss endoscopic evaluation when mentation is improved Thank you for allowing us to participate in the care of the patient
[2019-10-04 21:50] LABS: C Reactive Protein 18.9 mg/L (<10.0)
[2019-10-04 22:04] LABS: T4, Free (Free Thyroxine) 1.72 ng/dL (0.78-2.19)
[2019-10-04] MEDS: ACETAMINOPHEN TAB 325 MG TAB PO PRN (23:18)
[2019-10-05 00:09] LABS: Allen Test Performed? Yes
[2019-10-05 00:13] LABS: ABG Base Excess 2.7 mmol/L; ABG HCO3 25 mmol/L (21-25); ABG PCO2 30 mmHg (35-45); ABG PH 7.54 (7.35-7.45); ABG PO2 68 mmHg (83-108); ABG TCO2 26 mmol/L (19-24)
[2019-10-05] MEDS ORDERED: KETOROLAC 30 MG/ML 1 ML VIAL IVP STA (00:44)
[2019-10-05] MEDS: LEVOTHYROXINE 125 MCG TAB PO SCH (04:53)
[2019-10-05] MEDS: PANTOPRAZOLE 40 MG TABLET PO SCH ×2 (04:53→17:30)
[2019-10-05 06:15] LABS: Glucose,Whole Blood 160 mg/dL (75-99)
[2019-10-05] MEDS: INSULN ASP PRT/INSULIN ASPART 100 UNIT/ML 10 ML VIAL SQ SCH ×2 (06:30→17:31)
[2019-10-05 06:35] LABS: Albumin 3.5 g/dL (3.5-5.0); Magnesium 2.3 mg/dL (1.6-2.3); Potassium 3.7 mmol/L (3.5-5.1); Total Bilirubin 1.7 mg/dL (0.2-1.3)
[2019-10-05 06:40] LABS: Anisocytosis Slight; HCT 25.1 % (34.0-46.0); HGB 7.3 gm/dL (11.4-16.0); Hypochromasia Marked; MCV 82.7 fL (80.0-100.0); Mean Platelet Volume 10.7; Microcytosis Slight; Platelet Count 140 k/uL (150-450); Poikilocytosis Marked; RBC 3.03 m/uL (3.80-5.40); RDW 19.4 % (11.5-15.5); WBC 5.5 k/uL (3.8-10.6)
[2019-10-05 08:03] LABS: Appearance,Urine Cloudy (Clear); Bacteria,Urine Occasional /hpf; Bilirubin,Urine Negative (Negative); Blood,Urine Large (Negative); Color,Urine Yellow; Glucose,Urine (UA) Negative (Negative); Ketones,Urine Negative (Negative); Leukocyte Esterase,Urine Large (Negative); Mucus,Urine Rare /hpf; Nitrite,Urine Negative (Negative); PH, Urine 5.5 (5.0-8.0); Protein,Urine 1+ (Negative); RBC,Urine 178 /hpf (0-5); Specific Gravity,Urine 1.015 (1.001-1.035); Squamous Epithelial Cell,Urine <1 /hpf (0-4); Urobilinogen,Urine <2.0 mg/dL (<2.0); WBC,Urine 34 /hpf (0-5)
--- NOTE | 2019-10-05 08:30 | P.PN ---
Subjective Principal diagnosis: anemia with shortness of breath. the patient is sedated/obtunded secondary to medications given. We will hold a ny type of narcotic this time. The patient is not arousable at this time. No voiding difficulties are noted. Toradol was given today. Objective - Vital Signs Vital signs: Vital Signs Temp 98.9 F 10/05/19 04:00 Pulse 98 10/05/19 04:00 Resp 18 10/05/19 04:00 BP 158/62 10/05/19 04:00 Pulse Ox 96 10/05/19 04:00 Intake & Output 10/04/19 10/05/19 10/05/19 18:59 06:59 18:59 Intake Total 120 0 Output Total 1550 800 Balance -1430 -800 Weight 95 kg 113 kg Intake: Oral 120 0 Output: Urine 1550 800 Other: Voiding Method Indwelling Catheter Indwelling Catheter - Constitutional General appearance: Present: average body habitus - EENT Eyes: Absent: abnormal pupil - Neck Neck: Absent: lymphadenopathy - Respiratory Respiratory: bilateral: CTA - Cardiovascular Rhythm: regular Heart sounds: normal: S1, S2 Abnormal Heart Sounds: Absent: S3 Gallop - Gastrointestinal General gastrointestinal: Present: soft. Absent: tenderness - Neurologic Neurologic: Present: CNII-XII intact - Labs CBC & Chem 7: 10/05/19 06:11 10/05/19 06:11 Labs: Abnormal Lab Results - Last 24 Hours (Table) 10/03/19 10/03/19 10/04/19 Range/Units 07:21 07:21 05:30 RBC (3.80-5.40) m/uL Hgb (11.4-16.0) gm/dL Hct (34.0-46.0) % MCH (25.0-35.0) pg MCHC (31.0-37.0) g/dL RDW (11.5-15.5) % Plt Count (150-450) k/uL ABG pH (7.35-7.45) ABG pCO2 (35-45) mmHg ABG pO2 (83-108) mmHg ABG Total CO2 (19-24) mmol/L Chloride (98-107) mmol/L BUN (7-17) mg/dL Creatinine (0.52-1.04) mg/dL Glucose (74-99) mg/dL POC Glucose (mg/dL) (75-99) mg/dL Iron 18 L (50-170) ug/dL % Saturation 4.60 L (12.00-45.00) Erythropoietin 86.58 H (2.00-30.00) mIU/mL Total Bilirubin (0.2-1.3) mg/dL C-Reactive Protein (<10.0) mg/L TSH (0.465-4.680) mIU/L Urine Appearance (Clear) Urine Protein (Negative) Urine Blood (Negative) Ur Leukocyte Esterase (Negative) Urine RBC (0-5) /hpf Urine WBC (0-5) /hpf Urine Bacteria (None) /hpf Urine Mucus (None) /hpf IgG (700.0-1600.0) mg/dL IgA (60.0-350.0) mg/dL Free Garrett LC, Quant 10.30 H (0.33-1.94) mg/dL Free Lambda LC, Quant 4.38 H (0.57-2.63) mg/dL 10/04/19 10/04/19 10/04/19 Range/Units 05:30 11:43 16:44 RBC (3.80-5.40) m/uL Hgb (11.4-16.0) gm/dL Hct (34.0-46.0) % MCH (25.0-35.0) pg MCHC (31.0-37.0) g/dL RDW (11.5-15.5) % Plt Count (150-450) k/uL ABG pH (7.35-7.45) ABG pCO2 (35-45) mmHg ABG pO2 (83-108) mmHg ABG Total CO2 (19-24) mmol/L Chloride (98-107) mmol/L BUN (7-17) mg/dL Creatinine (0.52-1.04) mg/dL Glucose (74-99) mg/dL POC Glucose (mg/dL) 181 H 218 H (75-99) mg/dL Iron (50-170) ug/dL % Saturation (12.00-45.00) Erythropoietin (2.00-30.00) mIU/mL Total Bilirubin (0.2-1.3) mg/dL C-Reactive Protein (<10.0) mg/L TSH (0.465-4.680) mIU/L Urine Appearance (Clear) Urine Protein (Negative) Urine Blood (Negative) Ur Leukocyte Esterase (Negative) Urine RBC (0-5) /hpf Urine WBC (0-5) /hpf Urine Bacteria (None) /hpf Urine Mucus (None) /hpf IgG 1720.0 H (700.0-1600.0) mg/dL IgA 673.0 H (60.0-350.0) mg/dL Free Garrett LC, Quant (0.33-1.94) mg/dL Free Lambda LC, Quant (0.57-2.63) mg/dL 10/04/19 10/04/19 10/04/19 Range/Units 20:11 21:08 21:08 RBC (3.80-5.40) m/uL Hgb (11.4-16.0) gm/dL Hct (34.0-46.0) % MCH (25.0-35.0) pg MCHC (31.0-37.0) g/dL RDW (11.5-15.5) % Plt Count (150-450) k/uL ABG pH (7.35-7.45) ABG pCO2 (35-45) mmHg ABG pO2 (83-108) mmHg ABG Total CO2 (19-24) mmol/L Chloride (98-107) mmol/L BUN (7-17) mg/dL Creatinine (0.52-1.04) mg/dL Glucose (74-99) mg/dL POC Glucose (mg/dL) 208 H (75-99) mg/dL Iron (50-170) ug/dL % Saturation (12.00-45.00) Erythropoietin (2.00-30.00) mIU/mL Total Bilirubin (0.2-1.3) mg/dL C-Reactive Protein 18.9 H (<10.0) mg/L TSH 4.850 H (0.465-4.680) mIU/L Urine Appearance (Clear) Urine Protein (Negative) Urine Blood (Negative) Ur Leukocyte Esterase (Negative) Urine RBC (0-5) /hpf Urine WBC (0-5) /hpf Urine Bacteria (None) /hpf Urine Mucus (None) /hpf IgG (700.0-1600.0) mg/dL IgA (60.0-350.0) mg/dL Free Garrett LC, Quant (0.33-1.94) mg/dL Free Lambda LC, Quant (0.57-2.63) mg/dL 10/05/19 10/05/19 10/05/19 Range/Units 00:07 06:11 06:11 RBC 3.03 L (3.80-5.40) m/uL Hgb 7.3 L (11.4-16.0) gm/dL Hct 25.1 L (34.0-46.0) % MCH 24.0 L (25.0-35.0) pg MCHC 29.0 L (31.0-37.0) g/dL RDW 19.4 H (11.5-15.5) % Plt Count 140 L (150-450) k/uL ABG pH 7.54 H (7.35-7.45) ABG pCO2 30 L (35-45) mmHg ABG pO2 68 L (83-108) mmHg ABG Total CO2 26 H (19-24) mmol/L Chloride 108 H (98-107) mmol/L BUN 26 H (7-17) mg/dL Creatinine 1.31 H (0.52-1.04) mg/dL Glucose 150 H (74-99) mg/dL POC Glucose (mg/dL) (75-99) mg/dL Iron (50-170) ug/dL % Saturation (12.00-45.00) Erythropoietin (2.00-30.00) mIU/mL Total Bilirubin 1.7 H (0.2-1.3) mg/dL C-Reactive Protein (<10.0) mg/L TSH (0.465-4.680) mIU/L Urine Appearance (Clear) Urine Protein (Negative) Urine Blood (Negative) Ur Leukocyte Esterase (Negative) Urine RBC (0-5) /hpf Urine WBC (0-5) /hpf Urine Bacteria (None) /hpf Urine Mucus (None) /hpf IgG (700.0-1600.0) mg/dL IgA (60.0-350.0) mg/dL Free Garrett LC, Quant (0.33-1.94) mg/dL Free Lambda LC, Quant (0.57-2.63) mg/dL 10/05/19 10/05/19 Range/Units 06:14 07:08 RBC (3.80-5.40) m/uL Hgb (11.4-16.0) gm/dL Hct (34.0-46.0) % MCH (25.0-35.0) pg MCHC (31.0-37.0) g/dL RDW (11.5-15.5) % Plt Count (150-450) k/uL ABG pH (7.35-7.45) ABG pCO2 (35-45) mmHg ABG pO2 (83-108) mmHg ABG Total CO2 (19-24) mmol/L Chloride (98-107) mmol/L BUN (7-17) mg/dL Creatinine (0.52-1.04) mg/dL Glucose (74-99) mg/dL POC Glucose (mg/dL) 160 H (75-99) mg/dL Iron (50-170) ug/dL % Saturation (12.00-45.00) Erythropoietin (2.00-30.00) mIU/mL Total Bilirubin (0.2-1.3) mg/dL C-Reactive Protein (<10.0) mg/L TSH (0.465-4.680) mIU/L Urine Appearance Cloudy H (Clear) Urine Protein 1+ H (Negative) Urine Blood Large H (Negative) Ur Leukocyte Esterase Large H (Negative) Urine RBC 178 H (0-5) /hpf Urine WBC 34 H (0-5) /hpf Urine Bacteria Occasional H (None) /hpf Urine Mucus Rare H (None) /hpf IgG (700.0-1600.0) mg/dL IgA (60.0-350.0) mg/dL Free Garrett LC, Quant (0.33-1.94) mg/dL Free Lambda LC, Quant (0.57-2.63) mg/dL Assessment and Plan (1) Anemia Current Visit: Yes Status: Acute Code(s): D64.9 - ANEMIA, UNSPECIFIED SNOMED Code(s): 826970268 (2) High risk for readmission Current Visit: Yes Status: Acute Code(s): Z91.89 - OTH PERSONAL RISK FACTORS, NOT ELSEWHERE CLASSIFIED SNOMED Code(s): 609973342 (3) Low back pain Current Visit: No Status: Acute Code(s): M54.5 - LOW BACK PAIN SNOMED Code(s): 640383659 Plan: continue supportive care. Again, no narcotics to be given. Check CBC and CMP in a.m. History of transaminitis Appreciate neurology input.
[2019-10-05] MEDS ORDERED: LEVOFLOXACIN 500MG-D5W PMX 500 MG in DEXTROSE/WATER 1 100ML.BAG IVPB ONE (09:00)
[2019-10-05 09:02] LABS: Eosinophils # (M) 0.17 k/uL (0-0.7); Lymphocytes # (M) 1.16 k/uL (1.0-4.8); Monocytes # (M) 0.55 k/uL (0-1.0); Neutrophils # (M) 3.63 k/uL (1.3-7.7); Neutrophils % (M) 66 %; Nucleated Red Blood Cells 0 /100 WBC (0-0); Total Cells Counted 100
[2019-10-05 09:03] LABS: Rouleaux Present
[2019-10-05] MEDS: ISOSORBIDE MONONITRATE ER 30 MG TAB.ER.24H PO SCH (09:33)
[2019-10-05] MEDS: METOPROLOL TARTRATE 25 MG TAB PO SCH ×2 (09:33→20:07)
[2019-10-05] MEDS: PREGABALIN 50 MG CAP PO SCH ×3 (09:33→20:07)
[2019-10-05] MEDS: LIDOCAINE 5% PATCH TOPICAL SCH (09:33)
[2019-10-05] MEDS: LOSARTAN 50 MG TAB PO SCH (09:33)
[2019-10-05] MEDS: BACLOFEN 10 MG TAB PO PRN (09:34)
[2019-10-05] MEDS: ACETAMINOPHEN TAB 325 MG TAB PO PRN (09:34)
[2019-10-05] MEDS: ATORVASTATIN 80 MG TAB PO SCH (09:34)
[2019-10-05] MEDS: BUMETANIDE 1 MG TAB PO SCH ×2 (09:34→20:07)
[2019-10-05] MEDS: CAPSAICIN 0.025% CREAM 60 GM TUBE TOPICAL SCH ×4 (09:56→20:08)
[2019-10-05 11:44] LABS: Folate, Serum 13.7 ng/mL
[2019-10-05 11:55] LABS: Glucose,Whole Blood 231 mg/dL (75-99)
[2019-10-05] MEDS: KETOROLAC 30 MG/ML 1 ML VIAL IVP PRN ×2 (13:32→20:07)
--- NOTE | 2019-10-05 15:04 | P.PN ---
Subjective Progress Note Date: 10/05/19 Principal diagnosis: Anemia, Cellulitis Reviewed Anemia work-up, there is a degree of iron deficiency noted, B12 and Folate are wnl. Increased signs of inflammation. There is mild increase in Free light chains although likely non-specific as both IgA and IgG are elevated and ratio is not significantly increased. We are waiting on immunofixation and protein electrophoresis to be completed. Hemoglobin has remained above 7 in safe range the past two days. Her mental status continues to appear diminished and neurology has seen and evaluated patient. Objective - Vital Signs Vital signs: Vital Signs Temp 98.3 F 10/05/19 11:40 Pulse 91 10/05/19 11:42 Resp 18 10/05/19 11:42 BP 155/79 10/05/19 11:40 Pulse Ox 96 10/05/19 11:40 Intake & Output 10/04/19 10/05/19 10/05/19 18:59 06:59 18:59 Intake Total 120 0 Output Total 1550 800 Balance -1430 -800 Weight 95 kg 113 kg 113 kg Intake: Oral 120 0 Output: Urine 1550 800 Other: Voiding Method Indwelling Catheter Indwelling Catheter Indwelling Catheter # Voids 0 # Bowel Movements 0 - Exam Gen: alert with stimulation resting Head: NCNT Neck: Supple Lungs: Diminished at bases Heart: RRR Abd: soft, NT Ext: Chronic vascular changes, edema Mood: Calm - Labs CBC & Chem 7: 10/05/19 06:11 10/05/19 06:11 Labs: Abnormal Lab Results - Last 24 Hours (Table) 10/04/19 10/04/19 10/04/19 Range/Units 16:44 20:11 21:08 RBC (3.80-5.40) m/uL Hgb (11.4-16.0) gm/dL Hct (34.0-46.0) % MCH (25.0-35.0) pg MCHC (31.0-37.0) g/dL RDW (11.5-15.5) % Plt Count (150-450) k/uL ABG pH (7.35-7.45) ABG pCO2 (35-45) mmHg ABG pO2 (83-108) mmHg ABG Total CO2 (19-24) mmol/L Chloride (98-107) mmol/L BUN (7-17) mg/dL Creatinine (0.52-1.04) mg/dL Glucose (74-99) mg/dL POC Glucose (mg/dL) 218 H 208 H (75-99) mg/dL Total Bilirubin (0.2-1.3) mg/dL C-Reactive Protein (<10.0) mg/L TSH 4.850 H (0.465-4.680) mIU/L Total T3 (60.0-180.0) ng/dL Urine Appearance (Clear) Urine Protein (Negative) Urine Blood (Negative) Ur Leukocyte Esterase (Negative) Urine RBC (0-5) /hpf Urine WBC (0-5) /hpf Urine Bacteria (None) /hpf Urine Mucus (None) /hpf 10/04/19 10/05/19 10/05/19 Range/Units 21:08 00:07 06:11 RBC (3.80-5.40) m/uL Hgb (11.4-16.0) gm/dL Hct (34.0-46.0) % MCH (25.0-35.0) pg MCHC (31.0-37.0) g/dL RDW (11.5-15.5) % Plt Count (150-450) k/uL ABG pH 7.54 H (7.35-7.45) ABG pCO2 30 L (35-45) mmHg ABG pO2 68 L (83-108) mmHg ABG Total CO2 26 H (19-24) mmol/L Chloride (98-107) mmol/L BUN (7-17) mg/dL Creatinine (0.52-1.04) mg/dL Glucose (74-99) mg/dL POC Glucose (mg/dL) (75-99) mg/dL Total Bilirubin (0.2-1.3) mg/dL C-Reactive Protein 18.9 H (<10.0) mg/L TSH (0.465-4.680) mIU/L Total T3 48.0 L (60.0-180.0) ng/dL Urine Appearance (Clear) Urine Protein (Negative) Urine Blood (Negative) Ur Leukocyte Esterase (Negative) Urine RBC (0-5) /hpf Urine WBC (0-5) /hpf Urine Bacteria (None) /hpf Urine Mucus (None) /hpf 10/05/19 10/05/19 10/05/19 Range/Units 06:11 06:11 06:14 RBC 3.03 L (3.80-5.40) m/uL Hgb 7.3 L (11.4-16.0) gm/dL Hct 25.1 L (34.0-46.0) % MCH 24.0 L (25.0-35.0) pg MCHC 29.0 L (31.0-37.0) g/dL RDW 19.4 H (11.5-15.5) % Plt Count 140 L (150-450) k/uL ABG pH (7.35-7.45) ABG pCO2 (35-45) mmHg ABG pO2 (83-108) mmHg ABG Total CO2 (19-24) mmol/L Chloride 108 H (98-107) mmol/L BUN 26 H (7-17) mg/dL Creatinine 1.31 H (0.52-1.04) mg/dL Glucose 150 H (74-99) mg/dL POC Glucose (mg/dL) 160 H (75-99) mg/dL Total Bilirubin 1.7 H (0.2-1.3) mg/dL C-Reactive Protein (<10.0) mg/L TSH (0.465-4.680) mIU/L Total T3 (60.0-180.0) ng/dL Urine Appearance (Clear) Urine Protein (Negative) Urine Blood (Negative) Ur Leukocyte Esterase (Negative) Urine RBC (0-5) /hpf Urine WBC (0-5) /hpf Urine Bacteria (None) /hpf Urine Mucus (None) /hpf 10/05/19 10/05/19 Range/Units 07:08 11:26 RBC (3.80-5.40) m/uL Hgb (11.4-16.0) gm/dL Hct (34.0-46.0) % MCH (25.0-35.0) pg MCHC (31.0-37.0) g/dL RDW (11.5-15.5) % Plt Count (150-450) k/uL ABG pH (7.35-7.45) ABG pCO2 (35-45) mmHg ABG pO2 (83-108) mmHg ABG Total CO2 (19-24) mmol/L Chloride (98-107) mmol/L BUN (7-17) mg/dL Creatinine (0.52-1.04) mg/dL Glucose (74-99) mg/dL POC Glucose (mg/dL) 231 H (75-99) mg/dL Total Bilirubin (0.2-1.3) mg/dL C-Reactive Protein (<10.0) mg/L TSH (0.465-4.680) mIU/L Total T3 (60.0-180.0) ng/dL Urine Appearance Cloudy H (Clear) Urine Protein 1+ H (Negative) Urine Blood Large H (Negative) Ur Leukocyte Esterase Large H (Negative) Urine RBC 178 H (0-5) /hpf Urine WBC 34 H (0-5) /hpf Urine Bacteria Occasional H (None) /hpf Urine Mucus Rare H (None) /hpf Microbiology - Last 24 Hours (Table) 10/05/19 07:08 Urine Culture - Preliminary Urine,Voided Assessment and Plan Plan: Assessment and Recommendations: Normocytic Anemia: Likely multifactoral recent blood loss and renal dz - Acute on Chronic - GI Evaluation regarding Iron deficiency anemia component and recent GI blood loss - Iron studies do reveal iron deficiency component - Erythropoetin appropriately increased Mild thrombocytopenia: - This appears to have started in August of this year. This was during her admission with acute hepatitis, encephalopathy and LLE cellulitis. - Likely secondary to inflammation and medications (Tramadol/antibiotics) - Ultrasound of abdomen reviewed and no significant findings for an acute hepatitis, although ? CBD above normal limits and radiology rec for further evaluation with MRCP, will defer to GI as they are following case. Decreased Mental Status: - Neurology is following 10/05/19 Plan: - Await immunofixation and protein electrophoresis - Repeat CBC in am
[2019-10-05 15:28] LABS: Anisocytosis Slight; Basophils % (A) 0 %; Eosinophils # (A) 0.2 k/uL (0-0.7); Eosinophils % (A) 4 %; HCT 23.8 % (34.0-46.0); Hypochromasia Marked; Lymphocytes # (A) 0.5 k/uL (1.0-4.8); Lymphocytes % (A) 13 %; MCH 24.7 pg (25.0-35.0); MCHC 29.6 g/dL (31.0-37.0); MCV 83.3 fL (80.0-100.0); Microcytosis Slight; Monocytes # (A) 0.2 k/uL (0-1.0); Monocytes % (A) 6 %; Neutrophils # (A) 2.7 k/uL (1.3-7.7); Neutrophils % (A) 75 %; Platelet Count 114 k/uL (150-450); Poikilocytosis Moderate; RBC 2.86 m/uL (3.80-5.40); RDW 19.5 % (11.5-15.5); WBC 3.6 k/uL (3.8-10.6)
[2019-10-05 16:49] LABS: Glucose,Whole Blood 213 mg/dL (75-99)
--- NOTE | 2019-10-05 19:50 | P.PN ---
Subjective Progress Note Date: 10/05/19 Principal diagnosis: Iron deficiency anemia Patient is seen today lying in bed complaining of back pain, unwilling to answer questions. Objective - Vital Signs Vital signs: Vital Signs Temp 98.3 F 10/05/19 11:40 Pulse 91 10/05/19 11:40 Resp 18 10/05/19 11:40 BP 155/79 10/05/19 11:40 Pulse Ox 96 10/05/19 11:40 Intake & Output 10/04/19 10/05/19 10/05/19 18:59 06:59 18:59 Intake Total 120 0 Output Total 1550 800 Balance -1430 -800 Weight 95 kg 113 kg 113 kg Intake: Oral 120 0 Output: Urine 1550 800 Other: Voiding Method Indwelling Catheter Indwelling Catheter Indwelling Catheter # Voids 0 # Bowel Movements 0 - Exam On physical examination, patient appears comfortable in no apparent distress. HEAD: Normocephalic, atraumatic. EYES: No scleral icterus. No conjunctival injection. MOUTH: No lesions, tongue midline. NECK: Trachea midline, no gross abnormalities. ABDOMEN: Soft, obese. Bowel sounds are positive. No organomegaly. No guarding or rigidity. EXTREMITIES: No pedal edema. SKIN: No rashes, no jaundice. NEUROLOGIC: Alert and oriented. - Labs CBC & Chem 7: 10/05/19 15:00 10/05/19 06:11 Labs: Abnormal Lab Results - Last 24 Hours (Table) 10/03/19 10/03/19 10/04/19 Range/Units 07:21 07:21 05:30 RBC (3.80-5.40) m/uL Hgb (11.4-16.0) gm/dL Hct (34.0-46.0) % MCH (25.0-35.0) pg MCHC (31.0-37.0) g/dL RDW (11.5-15.5) % Plt Count (150-450) k/uL ABG pH (7.35-7.45) ABG pCO2 (35-45) mmHg ABG pO2 (83-108) mmHg ABG Total CO2 (19-24) mmol/L Chloride (98-107) mmol/L BUN (7-17) mg/dL Creatinine (0.52-1.04) mg/dL Glucose (74-99) mg/dL POC Glucose (mg/dL) (75-99) mg/dL Iron 18 L (50-170) ug/dL % Saturation 4.60 L (12.00-45.00) Erythropoietin 86.58 H (2.00-30.00) mIU/mL Total Bilirubin (0.2-1.3) mg/dL C-Reactive Protein (<10.0) mg/L TSH (0.465-4.680) mIU/L Total T3 (60.0-180.0) ng/dL Urine Appearance (Clear) Urine Protein (Negative) Urine Blood (Negative) Ur Leukocyte Esterase (Negative) Urine RBC (0-5) /hpf Urine WBC (0-5) /hpf Urine Bacteria (None) /hpf Urine Mucus (None) /hpf IgG (700.0-1600.0) mg/dL IgA (60.0-350.0) mg/dL Free Cleaton LC, Quant 10.30 H (0.33-1.94) mg/dL Free Lambda LC, Quant 4.38 H (0.57-2.63) mg/dL 10/04/19 10/04/19 10/04/19 Range/Units 05:30 11:43 16:44 RBC (3.80-5.40) m/uL Hgb (11.4-16.0) gm/dL Hct (34.0-46.0) % MCH (25.0-35.0) pg MCHC (31.0-37.0) g/dL RDW (11.5-15.5) % Plt Count (150-450) k/uL ABG pH (7.35-7.45) ABG pCO2 (35-45) mmHg ABG pO2 (83-108) mmHg ABG Total CO2 (19-24) mmol/L Chloride (98-107) mmol/L BUN (7-17) mg/dL Creatinine (0.52-1.04) mg/dL Glucose (74-99) mg/dL POC Glucose (mg/dL) 181 H 218 H (75-99) mg/dL Iron (50-170) ug/dL % Saturation (12.00-45.00) Erythropoietin (2.00-30.00) mIU/mL Total Bilirubin (0.2-1.3) mg/dL C-Reactive Protein (<10.0) mg/L TSH (0.465-4.680) mIU/L Total T3 (60.0-180.0) ng/dL Urine Appearance (Clear) Urine Protein (Negative) Urine Blood (Negative) Ur Leukocyte Esterase (Negative) Urine RBC (0-5) /hpf Urine WBC (0-5) /hpf Urine Bacteria (None) /hpf Urine Mucus (None) /hpf IgG 1720.0 H (700.0-1600.0) mg/dL IgA 673.0 H (60.0-350.0) mg/dL Free Cleaton LC, Quant (0.33-1.94) mg/dL Free Lambda LC, Quant (0.57-2.63) mg/dL 10/04/19 10/04/19 10/04/19 Range/Units 20:11 21:08 21:08 RBC (3.80-5.40) m/uL Hgb (11.4-16.0) gm/dL Hct (34.0-46.0) % MCH (25.0-35.0) pg MCHC (31.0-37.0) g/dL RDW (11.5-15.5) % Plt Count (150-450) k/uL ABG pH (7.35-7.45) ABG pCO2 (35-45) mmHg ABG pO2 (83-108) mmHg ABG Total CO2 (19-24) mmol/L Chloride (98-107) mmol/L BUN (7-17) mg/dL Creatinine (0.52-1.04) mg/dL Glucose (74-99) mg/dL POC Glucose (mg/dL) 208 H (75-99) mg/dL Iron (50-170) ug/dL % Saturation (12.00-45.00) Erythropoietin (2.00-30.00) mIU/mL Total Bilirubin (0.2-1.3) mg/dL C-Reactive Protein 18.9 H (<10.0) mg/L TSH 4.850 H (0.465-4.680) mIU/L Total T3 (60.0-180.0) ng/dL Urine Appearance (Clear) Urine Protein (Negative) Urine Blood (Negative) Ur Leukocyte Esterase (Negative) Urine RBC (0-5) /hpf Urine WBC (0-5) /hpf Urine Bacteria (None) /hpf Urine Mucus (None) /hpf IgG (700.0-1600.0) mg/dL IgA (60.0-350.0) mg/dL Free Cleaton LC, Quant (0.33-1.94) mg/dL Free Lambda LC, Quant (0.57-2.63) mg/dL 10/05/19 10/05/19 10/05/19 Range/Units 00:07 06:11 06:11 RBC 3.03 L (3.80-5.40) m/uL Hgb 7.3 L (11.4-16.0) gm/dL Hct 25.1 L (34.0-46.0) % MCH 24.0 L (25.0-35.0) pg MCHC 29.0 L (31.0-37.0) g/dL RDW 19.4 H (11.5-15.5) % Plt Count 140 L (150-450) k/uL ABG pH 7.54 H (7.35-7.45) ABG pCO2 30 L (35-45) mmHg ABG pO2 68 L (83-108) mmHg ABG Total CO2 26 H (19-24) mmol/L Chloride (98-107) mmol/L BUN (7-17) mg/dL Creatinine (0.52-1.04) mg/dL Glucose (74-99) mg/dL POC Glucose (mg/dL) (75-99) mg/dL Iron (50-170) ug/dL % Saturation (12.00-45.00) Erythropoietin (2.00-30.00) mIU/mL Total Bilirubin (0.2-1.3) mg/dL C-Reactive Protein (<10.0) mg/L TSH (0.465-4.680) mIU/L Total T3 48.0 L (60.0-180.0) ng/dL Urine Appearance (Clear) Urine Protein (Negative) Urine Blood (Negative) Ur Leukocyte Esterase (Negative) Urine RBC (0-5) /hpf Urine WBC (0-5) /hpf Urine Bacteria (None) /hpf Urine Mucus (None) /hpf IgG (700.0-1600.0) mg/dL IgA (60.0-350.0) mg/dL Free Cleaton LC, Quant (0.33-1.94) mg/dL Free Lambda LC, Quant (0.57-2.63) mg/dL 10/05/19 10/05/19 10/05/19 Range/Units 06:11 06:14 07:08 RBC (3.80-5.40) m/uL Hgb (11.4-16.0) gm/dL Hct (34.0-46.0) % MCH (25.0-35.0) pg MCHC (31.0-37.0) g/dL RDW (11.5-15.5) % Plt Count (150-450) k/uL ABG pH (7.35-7.45) ABG pCO2 (35-45) mmHg ABG pO2 (83-108) mmHg ABG Total CO2 (19-24) mmol/L Chloride 108 H (98-107) mmol/L BUN 26 H (7-17) mg/dL Creatinine 1.31 H (0.52-1.04) mg/dL Glucose 150 H (74-99) mg/dL POC Glucose (mg/dL) 160 H (75-99) mg/dL Iron (50-170) ug/dL % Saturation (12.00-45.00) Erythropoietin (2.00-30.00) mIU/mL Total Bilirubin 1.7 H (0.2-1.3) mg/dL C-Reactive Protein (<10.0) mg/L TSH (0.465-4.680) mIU/L Total T3 (60.0-180.0) ng/dL Urine Appearance Cloudy H (Clear) Urine Protein 1+ H (Negative) Urine Blood Large H (Negative) Ur Leukocyte Esterase Large H (Negative) Urine RBC 178 H (0-5) /hpf Urine WBC 34 H (0-5) /hpf Urine Bacteria Occasional H (None) /hpf Urine Mucus Rare H (None) /hpf IgG (700.0-1600.0) mg/dL IgA (60.0-350.0) mg/dL Free Cleaton LC, Quant (0.33-1.94) mg/dL Free Lambda LC, Quant (0.57-2.63) mg/dL Assessment and Plan (1) Iron deficiency anemia Narrative/Plan: 73-year-old female admitted for shortness of breath, with multiple medical comorbidities and noted to have an iron deficiency anemia. The patient is und ergoing evaluation by the hematology service. No reports of GI bleeding. Per the note from prior admission patient had reported a colonoscopy 2 years ago at outside facility. Stool testing has been negative for blood. Current Visit: Yes Status: Acute Code(s): D50.9 - IRON DEFICIENCY ANEMIA, UNSPECIFIED SNOMED Code(s): 60092225 Plan: Supportive care Okay for diet as tolerated Continue to monitor hemoglobin and hematocrit and transfuse as needed Iron supplementation recommended Patient not fit for endoscopic evaluation at this time given altered mental sta tus and combativeness Would recommend further evaluation by hematology and likely would benefit from bone marrow biopsy prior to discharge Thank you for allowing us to participate in the care of the patient
[2019-10-05 20:21] LABS: Glucose,Whole Blood 172 mg/dL (75-99)
[2019-10-05] MEDS: QUEtiapine 25 MG TAB PO SCH (20:57)
[2019-10-06] MEDS: KETOROLAC 30 MG/ML 1 ML VIAL IVP PRN ×3 (01:39→20:33)
[2019-10-06] MEDS: LEVOTHYROXINE 125 MCG TAB PO SCH (06:04)
[2019-10-06] MEDS: PANTOPRAZOLE 40 MG TABLET PO SCH ×2 (06:04→18:16)
[2019-10-06 06:16] LABS: Glucose,Whole Blood 94 mg/dL (75-99)
[2019-10-06] MEDS: INSULN ASP PRT/INSULIN ASPART 100 UNIT/ML 10 ML VIAL SQ SCH ×2 (06:21→16:54)
[2019-10-06 08:10] LABS: Albumin 2.9 g/dL (3.5-5.0); Calcium 8.5 mg/dL (8.4-10.2); Potassium 3.9 mmol/L (3.5-5.1); Total Bilirubin 1.3 mg/dL (0.2-1.3); Total Protein 6.3 g/dL (6.3-8.2)
[2019-10-06 08:24] LABS: Anisocytosis Slight; Basophils % (A) 0 %; Eosinophils # (A) 0.3 k/uL (0-0.7); Eosinophils % (A) 6 %; HCT 23.5 % (34.0-46.0); Hypochromasia Marked; Lymphocytes # (A) 0.6 k/uL (1.0-4.8); Lymphocytes % (A) 14 %; MCH 24.7 pg (25.0-35.0); MCHC 28.7 g/dL (31.0-37.0); MCV 85.8 fL (80.0-100.0); Mean Platelet Volume 11.1; Monocytes # (A) 0.3 k/uL (0-1.0); Monocytes % (A) 7 %; Neutrophils # (A) 3.1 k/uL (1.3-7.7); Neutrophils % (A) 71 %; Platelet Count 105 k/uL (150-450); Poikilocytosis Moderate; RBC 2.74 m/uL (3.80-5.40); RDW 19.1 % (11.5-15.5); WBC 4.4 k/uL (3.8-10.6)
[2019-10-06 08:33] LABS: HGB 6.8 gm/dL (11.4-16.0)
[2019-10-06] MEDS: METOPROLOL TARTRATE 25 MG TAB PO SCH ×2 (08:35→20:34)
[2019-10-06] MEDS: ATORVASTATIN 80 MG TAB PO SCH (08:35)
[2019-10-06] MEDS: ISOSORBIDE MONONITRATE ER 30 MG TAB.ER.24H PO SCH (08:35)
[2019-10-06] MEDS: LOSARTAN 50 MG TAB PO SCH (08:35)
[2019-10-06] MEDS: BUMETANIDE 1 MG TAB PO SCH ×2 (08:35→20:33)
[2019-10-06] MEDS: PREGABALIN 50 MG CAP PO SCH ×3 (08:35→20:34)
[2019-10-06] MEDS: BACLOFEN 10 MG TAB PO PRN (08:36)
[2019-10-06] MEDS: LEVOFLOXACIN 250MG-D5W PMX 250 MG in DEXTROSE/WATER 1 50ML.BAG IVPB SCH (08:39)
[2019-10-06] MEDS: LIDOCAINE 5% PATCH TOPICAL SCH (08:40)
[2019-10-06 10:08] VITALS: RESP 18
[2019-10-06] MEDS: CAPSAICIN 0.025% CREAM 60 GM TUBE TOPICAL SCH ×4 (10:14→20:34)
[2019-10-06 11:34] LABS: Glucose,Whole Blood 90 mg/dL (75-99)
[2019-10-06 13:44] LABS: APTT 46 Sec(s) (<43); APTT 1:1 Mix 40 Sec(s) (<43); DRVVT 1:1 Mix 41 Sec(s) (<44); Dilute Russell Viper Venom 49 Sec(s) (<44)
[2019-10-06 14:00] LABS: Gamma Globulin 1.47 g/dL (0.70-1.50)
--- NOTE | 2019-10-06 15:38 | P.PN ---
Subjective Progress Note Date: 10/06/19 Principal diagnosis: Anemia, Cellulitis Patient awakens to stimuli, still very lethargic. Hemoglobin 6.8, transfuse one unit PRBC Objective - Vital Signs Vital signs: Vital Signs Temp 98.2 F 10/06/19 14:59 Pulse 86 10/06/19 14:59 Resp 18 10/06/19 14:59 BP 104/68 10/06/19 14:59 Pulse Ox 96 10/06/19 14:53 Intake & Output 10/05/19 10/06/19 10/06/19 18:59 06:59 18:59 Intake Total 120 10 310 Balance 120 10 310 Weight 113 kg 113.5 kg Intake: IV 10 Invasive Line 2 10 Oral 120 Blood Product 310 Rc As-3 Unit 310 [id number] Other: Voiding Method Indwelling Catheter Indwelling Catheter Indwelling Catheter # Voids 0 # Bowel Movements 0 - Exam Gen: alert with stimulation resting Head: NCNT Neck: Supple Lungs: Diminished at bases Heart: RRR Abd: soft, NT Ext: Chronic vascular changes, edema Mood: Calm - Labs CBC & Chem 7: 10/06/19 06:13 10/06/19 06:13 Labs: Abnormal Lab Results - Last 24 Hours (Table) 10/04/19 10/05/19 10/05/19 Range/Units 05:30 06:11 15:00 RBC (3.80-5.40) m/uL Hgb (11.4-16.0) gm/dL Hct (34.0-46.0) % MCH (25.0-35.0) pg MCHC (31.0-37.0) g/dL RDW (11.5-15.5) % Plt Count (150-450) k/uL Lymphocytes # (1.0-4.8) k/uL Retic Count 3.0 H (0.5-2.0) % Lupus Anticoag aPTT 46 H (<43) Sec(s) Dil Jv Viper Venom 49 H (<44) Sec(s) Chloride (98-107) mmol/L BUN (7-17) mg/dL Creatinine (0.52-1.04) mg/dL POC Glucose (mg/dL) (75-99) mg/dL Albumin (3.5-5.0) g/dL Albumin (PEP) 3.20 L (3.80-4.90) g/dL Hjigb-3-Icrqoqwzw 0.42 H (0.10-0.40) g/dL Crossmatch 10/05/19 10/05/19 10/06/19 Range/Units 16:26 20:19 06:13 RBC 2.74 L (3.80-5.40) m/uL Hgb 6.8 L* (11.4-16.0) gm/dL Hct 23.5 L (34.0-46.0) % MCH 24.7 L (25.0-35.0) pg MCHC 28.7 L (31.0-37.0) g/dL RDW 19.1 H (11.5-15.5) % Plt Count 105 L (150-450) k/uL Lymphocytes # 0.6 L (1.0-4.8) k/uL Retic Count (0.5-2.0) % Lupus Anticoag aPTT (<43) Sec(s) Dil Jv Viper Venom (<44) Sec(s) Chloride (98-107) mmol/L BUN (7-17) mg/dL Creatinine (0.52-1.04) mg/dL POC Glucose (mg/dL) 213 H 172 H (75-99) mg/dL Albumin (3.5-5.0) g/dL Albumin (PEP) (3.80-4.90) g/dL Mkuie-1-Lklbiddoc (0.10-0.40) g/dL Crossmatch 10/06/19 10/06/19 Range/Units 06:13 10:18 RBC (3.80-5.40) m/uL Hgb (11.4-16.0) gm/dL Hct (34.0-46.0) % MCH (25.0-35.0) pg MCHC (31.0-37.0) g/dL RDW (11.5-15.5) % Plt Count (150-450) k/uL Lymphocytes # (1.0-4.8) k/uL Retic Count (0.5-2.0) % Lupus Anticoag aPTT (<43) Sec(s) Dil Jv Viper Venom (<44) Sec(s) Chloride 110 H (98-107) mmol/L BUN 29 H (7-17) mg/dL Creatinine 1.60 H (0.52-1.04) mg/dL POC Glucose (mg/dL) (75-99) mg/dL Albumin 2.9 L (3.5-5.0) g/dL Albumin (PEP) (3.80-4.90) g/dL Tsmxn-1-Godvdstsm (0.10-0.40) g/dL Crossmatch See Detail Microbiology - Last 24 Hours (Table) 10/05/19 07:08 Urine Culture - Final Urine,Voided Assessment and Plan Plan: Assessment and Recommendations: Normocytic Anemia: Likely multifactoral recent blood loss and renal dz - Acute on Chronic - GI Evaluation regarding Iron deficiency anemia component and recent GI blood loss - Iron studies do reveal iron deficiency component - Erythropoetin appropriately increased - Hemoglobin 6.8, transfuse one unit Mild thrombocytopenia: - This appears to have started in August of this year. This was during her admission with acute hepatitis, encephalopathy and LLE cellulitis. - Likely secondary to inflammation and medications (Tramadol/antibiotics) - Ultrasound of abdomen reviewed and no significant findings for an acute hepatitis, although ? CBD above normal limits and radiology rec for further evaluation with MRCP, will defer to GI as they are following case. Decreased Mental Status: - Neurology is following 10/05/19 Plan: -Transfuse one unit PRBC today - Repeat CBC in am
[2019-10-06 16:36] LABS: Glucose,Whole Blood 92 mg/dL (75-99)
--- NOTE | 2019-10-06 19:53 | P.PN ---
Subjective Progress Note Date: 10/06/19 Principal diagnosis: Altered mental status. Chronic back pain opioid dependence Nursing reports patient slept from 10:00 till approximately 3 PM today. She awakened and appeared more interactive and back to her baseline. At the times exam this evening the patient is wide awake alert she is able to follow commands and talk. She reports she is still having some pain at about a level of 9 in the lower back. The patient tells me that she has had a history of 5 back surgeries back in the late 80s and early 90s. She was originally followed by pain management the [facility] in the stop several years ago. Over the interim time she's been managed by her primary care physician. A month ago she reports she was sent to Dr. Baird a neurologist to hopefully address these pain issues. She believes that she is only taking Lyrica and is not taking opioids or muscle relaxants. Objective - Vital Signs Vital signs: Vital Signs Temp 98.2 F 10/06/19 14:59 Pulse 86 10/06/19 14:59 Resp 18 10/06/19 14:59 BP 104/68 10/06/19 14:59 Pulse Ox 96 10/06/19 14:53 Intake & Output 10/06/19 10/06/19 10/07/19 06:59 18:59 06:59 Intake Total 10 510 Output Total 1000 Balance 10 -490 Weight 113.5 kg Intake: IV 10 Invasive Line 2 10 Oral 200 Blood Product 310 Rc As-3 Unit 310 [id number] Output: Urine 1000 Other: Voiding Method Indwelling Catheter Indwelling Catheter - Exam Patient examined chart reviewed. Exam: Patient is awake alert she does not appear to be in acute distress. Mental status: Patient is oriented times place person speech is fluent. Affect is somewhat flat. Cranial nerves: Cranial nerves III through XII are intact. Motor examination: Generalized weakness throughout. Patient is however able to hold both arms in front of her for 10 seconds without drift. Strength in the upper extremities is -5 over 5 bilaterally. Lower extremity testing: Patient is able to lift each leg off the bed at 30 for 5 seconds without eliciting back pain. Foot flexion and extension is 5 over 5. No fasciculations or tremor noted. Coordination testing intact finger to nose testing with eyes open and eyes closed. Sequential finger tapping is intact. Sensory examination tenderness noted along the legs bilaterally along the calves. Pressure and pinprick sensation appear intact. Deep tendon reflexes are trace throughout. Gait examination deferred - Labs CBC & Chem 7: 10/06/19 06:13 10/06/19 06:13 Labs: Abnormal Lab Results - Last 24 Hours (Table) 10/04/19 10/05/19 10/05/19 Range/Units 05:30 06:11 20:19 RBC (3.80-5.40) m/uL Hgb (11.4-16.0) gm/dL Hct (34.0-46.0) % MCH (25.0-35.0) pg MCHC (31.0-37.0) g/dL RDW (11.5-15.5) % Plt Count (150-450) k/uL Lymphocytes # (1.0-4.8) k/uL Lupus Anticoag aPTT 46 H (<43) Sec(s) Dil Jv Viper Venom 49 H (<44) Sec(s) Chloride (98-107) mmol/L BUN (7-17) mg/dL Creatinine (0.52-1.04) mg/dL POC Glucose (mg/dL) 172 H (75-99) mg/dL Albumin (3.5-5.0) g/dL Albumin (PEP) 3.20 L (3.80-4.90) g/dL Svpmp-7-Votebyvym 0.42 H (0.10-0.40) g/dL Crossmatch 10/06/19 10/06/19 10/06/19 Range/Units 06:13 06:13 10:18 RBC 2.74 L (3.80-5.40) m/uL Hgb 6.8 L* (11.4-16.0) gm/dL Hct 23.5 L (34.0-46.0) % MCH 24.7 L (25.0-35.0) pg MCHC 28.7 L (31.0-37.0) g/dL RDW 19.1 H (11.5-15.5) % Plt Count 105 L (150-450) k/uL Lymphocytes # 0.6 L (1.0-4.8) k/uL Lupus Anticoag aPTT (<43) Sec(s) Dil Jv Viper Venom (<44) Sec(s) Chloride 110 H (98-107) mmol/L BUN 29 H (7-17) mg/dL Creatinine 1.60 H (0.52-1.04) mg/dL POC Glucose (mg/dL) (75-99) mg/dL Albumin 2.9 L (3.5-5.0) g/dL Albumin (PEP) (3.80-4.90) g/dL Cnbtr-9-Okpuynrxx (0.10-0.40) g/dL Crossmatch See Detail Microbiology - Last 24 Hours (Table) 10/05/19 07:08 Urine Culture - Final Urine,Voided Assessment and Plan Assessment: There is been a significant improvement in patient's mental status over the last 24 hours. Patient has been transfused according to the notes patient also received 25 mg quetiapine last night which according to the night nurse appear to help her sleep throughout the night undisturbed. This patient's altered mental status is multifactorial. This patient does have significant pain issues that her best addressed by a painter assistant. She reports that recently she was told that she would be a good candidate for a spine stimulator. She is considering this. We also discussed going into acute rehab which I would strongly recommend. This patient has become quite deconditioned which is lead to lack of strength and more reliance on pain medications. I also believe this patient is probably at increased risk for obesity hypoventilation syndrome with sleep apnea. Undiagnosed untreated sleep apnea is also a factor in amplifying pain Recommendations 1. Continue with Seroquel 25 mg at night. 2. Strongly recommend patient be a candidate for rehab whether acute or subacute rehab. 3. Avoid opiates and work with maximizing patient on her Lyrica as well as physical therapy, TENS unit application and massage. Neurology will continue to follow patient to the admission. Further recommendations will be made as this case evolves. This patient's prognosis remains very guarded due to the complex cardiovascular issues at hand. Marge Renner MD Board Certified in Neuroogy& Sleep medicine
[2019-10-06 19:54] LABS: Glucose,Whole Blood 167 mg/dL (75-99)
[2019-10-06] MEDS: QUEtiapine 25 MG TAB PO SCH (20:34)
[2019-10-07] MEDS: LEVOTHYROXINE 125 MCG TAB PO SCH (04:36)
[2019-10-07] MEDS: PANTOPRAZOLE 40 MG TABLET PO SCH ×2 (04:36→15:15)
[2019-10-07] MEDS: KETOROLAC 30 MG/ML 1 ML VIAL IVP PRN ×2 (04:36→15:15)
[2019-10-07 06:00] LABS: Glucose,Whole Blood 119 mg/dL (75-99)
[2019-10-07] MEDS: INSULN ASP PRT/INSULIN ASPART 100 UNIT/ML 10 ML VIAL SQ SCH ×2 (06:03→18:02)
[2019-10-07 07:29] LABS: Albumin 2.9 g/dL (3.5-5.0); Calcium 7.9 mg/dL (8.4-10.2); Potassium 3.7 mmol/L (3.5-5.1); Total Bilirubin 1.5 mg/dL (0.2-1.3); Total Protein 6.4 g/dL (6.3-8.2)
[2019-10-07 07:52] LABS: Anisocytosis Slight; Basophils % (A) 1 %; Eosinophils # (A) 0.4 k/uL (0-0.7); Eosinophils % (A) 11 %; Hypochromasia Marked; Lymphocytes # (A) 0.6 k/uL (1.0-4.8); Lymphocytes % (A) 17 %; MCH 25.2 pg (25.0-35.0); MCHC 29.7 g/dL (31.0-37.0); Mean Platelet Volume 11.8; Monocytes # (A) 0.3 k/uL (0-1.0); Monocytes % (A) 8 %; Neutrophils # (A) 2.3 k/uL (1.3-7.7); Neutrophils % (A) 60 %; Poikilocytosis Marked; RBC 3.17 m/uL (3.80-5.40); RDW 18.8 % (11.5-15.5); WBC 3.8 k/uL (3.8-10.6)
--- NOTE | 2019-10-07 07:56 | P.PN ---
Subjective Principal diagnosis: anemia with shortness of breath. the patient is sedated/obtunded secondary to medications given. We will hold a ny type of narcotic this time. The patient is not arousable at this time. No voiding difficulties are noted. Seroquel has been initiated and she seems to be more easily arousable today Objective - Vital Signs Vital signs: Vital Signs Temp 98.1 F 10/06/19 20:00 Pulse 85 10/06/19 22:47 Resp 18 10/06/19 22:47 BP 152/80 10/06/19 22:47 Pulse Ox 98 10/06/19 22:47 Intake & Output 10/06/19 10/07/19 10/07/19 18:59 06:59 18:59 Intake Total 510 Output Total 1000 300 Balance -490 -300 Weight 104.5 kg Intake: Oral 200 Blood Product 310 Rc As-3 Unit 310 [id number] Output: Urine 1000 300 Other: Voiding Method Indwelling Catheter - Constitutional General appearance: Present: obese. Absent: cooperative, no acute distress - Neck Neck: Absent: lymphadenopathy - Respiratory Respiratory: bilateral: diminished - Cardiovascular Rhythm: irregularly irregular Heart sounds: normal: S1, S2 Abnormal Heart Sounds: Absent: S3 Gallop - Gastrointestinal General gastrointestinal: Present: scaphoid. Absent: tenderness - Integumentary Integumentary: Absent: rash - Neurologic Neurologic: Present: CNII-XII intact. Absent: focal deficits - Psychiatric Psychiatric: Absent: A&O x's 3, appropriate affect, intact judgment & insight - Labs CBC & Chem 7: 10/06/19 06:13 10/07/19 06:59 Labs: Abnormal Lab Results - Last 24 Hours (Table) 10/04/19 10/05/19 10/06/19 Range/Units 05:30 06:11 06:13 RBC 2.74 L (3.80-5.40) m/uL Hgb 6.8 L* (11.4-16.0) gm/dL Hct 23.5 L (34.0-46.0) % MCH 24.7 L (25.0-35.0) pg MCHC 28.7 L (31.0-37.0) g/dL RDW 19.1 H (11.5-15.5) % Plt Count 105 L (150-450) k/uL Lymphocytes # 0.6 L (1.0-4.8) k/uL Lupus Anticoag aPTT 46 H (<43) Sec(s) Dil Jv Viper Venom 49 H (<44) Sec(s) Chloride (98-107) mmol/L BUN (7-17) mg/dL Creatinine (0.52-1.04) mg/dL Glucose (74-99) mg/dL POC Glucose (mg/dL) (75-99) mg/dL Calcium (8.4-10.2) mg/dL Total Bilirubin (0.2-1.3) mg/dL Albumin (3.5-5.0) g/dL Albumin (PEP) 3.20 L (3.80-4.90) g/dL Pnarw-5-Kastbxycp 0.42 H (0.10-0.40) g/dL Crossmatch 10/06/19 10/06/19 10/06/19 Range/Units 06:13 10:18 19:53 RBC (3.80-5.40) m/uL Hgb (11.4-16.0) gm/dL Hct (34.0-46.0) % MCH (25.0-35.0) pg MCHC (31.0-37.0) g/dL RDW (11.5-15.5) % Plt Count (150-450) k/uL Lymphocytes # (1.0-4.8) k/uL Lupus Anticoag aPTT (<43) Sec(s) Dil Jv Viper Venom (<44) Sec(s) Chloride 110 H (98-107) mmol/L BUN 29 H (7-17) mg/dL Creatinine 1.60 H (0.52-1.04) mg/dL Glucose (74-99) mg/dL POC Glucose (mg/dL) 167 H (75-99) mg/dL Calcium (8.4-10.2) mg/dL Total Bilirubin (0.2-1.3) mg/dL Albumin 2.9 L (3.5-5.0) g/dL Albumin (PEP) (3.80-4.90) g/dL Kqwoj-0-Xpjjtosqi (0.10-0.40) g/dL Crossmatch See Detail 10/07/19 10/07/19 Range/Units 05:58 06:59 RBC (3.80-5.40) m/uL Hgb (11.4-16.0) gm/dL Hct (34.0-46.0) % MCH (25.0-35.0) pg MCHC (31.0-37.0) g/dL RDW (11.5-15.5) % Plt Count (150-450) k/uL Lymphocytes # (1.0-4.8) k/uL Lupus Anticoag aPTT (<43) Sec(s) Dil Jv Viper Venom (<44) Sec(s) Chloride (98-107) mmol/L BUN 30 H (7-17) mg/dL Creatinine 1.57 H (0.52-1.04) mg/dL Glucose 106 H (74-99) mg/dL POC Glucose (mg/dL) 119 H (75-99) mg/dL Calcium 7.9 L (8.4-10.2) mg/dL Total Bilirubin 1.5 H (0.2-1.3) mg/dL Albumin 2.9 L (3.5-5.0) g/dL Albumin (PEP) (3.80-4.90) g/dL Tgtik-1-Avgpjaogt (0.10-0.40) g/dL Crossmatch Microbiology - Last 24 Hours (Table) 10/05/19 07:08 Urine Culture - Final Urine,Voided Assessment and Plan (1) Anemia Current Visit: Yes Status: Acute Code(s): D64.9 - ANEMIA, UNSPECIFIED SNOMED Code(s): 437609861 (2) High risk for readmission Current Visit: Yes Status: Acute Code(s): Z91.89 - OTH PERSONAL RISK FACTORS, NOT ELSEWHERE CLASSIFIED SNOMED Code(s): 213319450 (3) Low back pain Current Visit: No Status: Acute Code(s): M54.5 - LOW BACK PAIN SNOMED Code(s): 099826635 Plan: continue supportive care. Again, no narcotics to be given. Check CBC and CMP in a.m. History of transaminitis Appreciate neurology input.
[2019-10-07 09:29] LABS: Glucose,Whole Blood 107 mg/dL (75-99)
[2019-10-07 10:15] VITALS: BMI 35.0
[2019-10-07 10:39] LABS: Large Platelets Present; Platelet Count 99 k/uL (150-450)
[2019-10-07 11:57] LABS: Glucose,Whole Blood 110 mg/dL (75-99)
[2019-10-07] MEDS: LEVOFLOXACIN 250MG-D5W PMX 250 MG in DEXTROSE/WATER 1 50ML.BAG IVPB SCH (12:41)
[2019-10-07] MEDS: METOPROLOL TARTRATE 25 MG TAB PO SCH ×2 (12:42→21:53)
[2019-10-07] MEDS: ISOSORBIDE MONONITRATE ER 30 MG TAB.ER.24H PO SCH (12:42)
[2019-10-07] MEDS: LOSARTAN 50 MG TAB PO SCH (12:42)
[2019-10-07] MEDS: BUMETANIDE 1 MG TAB PO SCH ×2 (12:42→21:53)
[2019-10-07] MEDS: PREGABALIN 50 MG CAP PO SCH ×3 (12:42→21:53)
[2019-10-07] MEDS: LIDOCAINE 5% PATCH TOPICAL SCH (12:43)
[2019-10-07] MEDS: ATORVASTATIN 80 MG TAB PO SCH (12:43)
[2019-10-07] MEDS: CAPSAICIN 0.025% CREAM 60 GM TUBE TOPICAL SCH ×3 (12:57→21:55)
--- NOTE | 2019-10-07 15:34 | P.PN ---
Subjective Progress Note Date: 10/07/19 Principal diagnosis: Anemia, Cellulitis still very lethargic sleeping, hemo = 8 Objective - Vital Signs Vital signs: Vital Signs Temp 98.4 F 10/07/19 08:00 Pulse 85 10/07/19 12:00 Resp 18 10/07/19 12:00 BP 145/75 10/07/19 12:00 Pulse Ox 100 10/07/19 12:00 Intake & Output 10/06/19 10/07/19 10/07/19 18:59 06:59 18:59 Intake Total 510 222 Output Total 1000 1150 Balance -490 -1150 222 Weight 104.5 kg 104.5 kg Intake: Oral 200 222 Blood Product 310 Rc As-3 Unit 310 [id number] Output: Urine 1000 1150 Other: Voiding Method Indwelling Catheter Indwelling Catheter - Exam Gen: alert with stimulation resting Head: NCNT Neck: Supple Lungs: Diminished at bases Heart: RRR Abd: soft, NT Ext: Chronic vascular changes, edema Mood: Calm - Labs CBC & Chem 7: 10/07/19 06:59 10/07/19 06:59 Labs: Abnormal Lab Results - Last 24 Hours (Table) 10/06/19 10/06/19 10/07/19 Range/Units 10:18 19:53 05:58 RBC (3.80-5.40) m/uL Hgb (11.4-16.0) gm/dL Hct (34.0-46.0) % MCHC (31.0-37.0) g/dL RDW (11.5-15.5) % Plt Count (150-450) k/uL Lymphocytes # (1.0-4.8) k/uL BUN (7-17) mg/dL Creatinine (0.52-1.04) mg/dL Glucose (74-99) mg/dL POC Glucose (mg/dL) 167 H 119 H (75-99) mg/dL Calcium (8.4-10.2) mg/dL Total Bilirubin (0.2-1.3) mg/dL Albumin (3.5-5.0) g/dL Crossmatch See Detail 10/07/19 10/07/19 10/07/19 Range/Units 06:59 06:59 09:27 RBC 3.17 L (3.80-5.40) m/uL Hgb 8.0 L (11.4-16.0) gm/dL Hct 27.0 L (34.0-46.0) % MCHC 29.7 L (31.0-37.0) g/dL RDW 18.8 H (11.5-15.5) % Plt Count 99 L (150-450) k/uL Lymphocytes # 0.6 L (1.0-4.8) k/uL BUN 30 H (7-17) mg/dL Creatinine 1.57 H (0.52-1.04) mg/dL Glucose 106 H (74-99) mg/dL POC Glucose (mg/dL) 107 H (75-99) mg/dL Calcium 7.9 L (8.4-10.2) mg/dL Total Bilirubin 1.5 H (0.2-1.3) mg/dL Albumin 2.9 L (3.5-5.0) g/dL Crossmatch 10/07/19 Range/Units 11:56 RBC (3.80-5.40) m/uL Hgb (11.4-16.0) gm/dL Hct (34.0-46.0) % MCHC (31.0-37.0) g/dL RDW (11.5-15.5) % Plt Count (150-450) k/uL Lymphocytes # (1.0-4.8) k/uL BUN (7-17) mg/dL Creatinine (0.52-1.04) mg/dL Glucose (74-99) mg/dL POC Glucose (mg/dL) 110 H (75-99) mg/dL Calcium (8.4-10.2) mg/dL Total Bilirubin (0.2-1.3) mg/dL Albumin (3.5-5.0) g/dL Crossmatch Microbiology - Last 24 Hours (Table) 10/06/19 08:21 Blood Culture - Preliminary Blood No Growth after 24 hours 10/05/19 07:08 Urine Culture - Final Urine,Voided Assessment and Plan Plan: Assessment and Recommendations: Normocytic Anemia: Likely multifactoral recent blood loss and renal dz - Acute on Chronic - GI Evaluation regarding Iron deficiency anemia component and recent GI blood loss - Iron studies do reveal iron deficiency component - Erythropoetin appropriately increased - Hemoglobin 8 Mild thrombocytopenia: - This appears to have started in August of this year. This was during her admission with acute hepatitis, encephalopathy and LLE cellulitis. - Likely secondary to inflammation and medications (Tramadol/antibiotics) - Ultrasound of abdomen reviewed and no significant findings for an acute hepatitis, although ? CBD above normal limits and radiology rec for further evaluation with MRCP, will defer to GI as they are following case. Decreased Mental Status: - Neurology is following 10/07/19 Plan: - Continue monitor cbc - All other acute problems per primary
[2019-10-07 16:42] LABS: Glucose,Whole Blood 197 mg/dL (75-99)
[2019-10-07 19:56] LABS: Glucose,Whole Blood 210 mg/dL (75-99)
[2019-10-07] MEDS: QUEtiapine 25 MG TAB PO SCH (21:53)
[2019-10-08] MEDS: KETOROLAC 30 MG/ML 1 ML VIAL IVP PRN ×2 (05:03→14:55)
[2019-10-08 06:04] LABS: Glucose,Whole Blood 95 mg/dL (75-99)
[2019-10-08] MEDS: LEVOTHYROXINE 125 MCG TAB PO SCH (06:20)
[2019-10-08] MEDS: BUMETANIDE 1 MG TAB PO SCH (08:15)
[2019-10-08] MEDS: ATORVASTATIN 80 MG TAB PO SCH (08:15)
[2019-10-08] MEDS: PANTOPRAZOLE 40 MG TABLET PO SCH (08:15)
[2019-10-08] MEDS: LOSARTAN 50 MG TAB PO SCH (08:15)
[2019-10-08] MEDS: LIDOCAINE 5% PATCH TOPICAL SCH (08:16)
[2019-10-08] MEDS: METOPROLOL TARTRATE 25 MG TAB PO SCH (08:16)
[2019-10-08] MEDS: ACETAMINOPHEN TAB 325 MG TAB PO PRN (08:17)
[2019-10-08] MEDS: INSULN ASP PRT/INSULIN ASPART 100 UNIT/ML 10 ML VIAL SQ SCH (08:17)
[2019-10-08] MEDS: ISOSORBIDE MONONITRATE ER 30 MG TAB.ER.24H PO SCH (08:18)
[2019-10-08] MEDS: CAPSAICIN 0.025% CREAM 60 GM TUBE TOPICAL SCH ×2 (08:18→12:11)
[2019-10-08] MEDS: BACLOFEN 10 MG TAB PO PRN (08:18)
[2019-10-08] MEDS: PREGABALIN 50 MG CAP PO SCH (08:18)
[2019-10-08 08:33] LABS: Anisocytosis Slight; HCT 28.1 % (34.0-46.0); HGB 8.3 gm/dL (11.4-16.0); Hypochromasia Marked; MCH 25.2 pg (25.0-35.0); MCHC 29.5 g/dL (31.0-37.0); MCV 85.2 fL (80.0-100.0); Platelet Count 107 k/uL (150-450); Poikilocytosis Moderate; RBC 3.29 m/uL (3.80-5.40); RDW 18.5 % (11.5-15.5); WBC 4.9 k/uL (3.8-10.6)
[2019-10-08 08:44] LABS: Albumin 3.2 g/dL (3.5-5.0); Potassium 3.8 mmol/L (3.5-5.1); Total Bilirubin 1.5 mg/dL (0.2-1.3); Total Protein 6.9 g/dL (6.3-8.2)
[2019-10-08] MEDS ORDERED: LEVOFLOXACIN 250 MG TAB PO SCH (09:00)
--- NOTE | 2019-10-08 11:18 | P.PN ---
Subjective Progress Note Date: 10/08/19 Principal diagnosis: Altered mental status. Chronic back pain opioid dependence SUBJECTIVE: Patient's mental status continues to wax and wane. She'll have periods where she seems comfortable not aware of any particular pain issues then once staff interacts with her she starts to complain of pain ongoing pain. This morning she was initially watching TV and seemed comfortable when I came into the room she began complaining of pain not along her back but along the left torso. She describes a sharp cutting pain into the left torso. Patient is oriented this morning she is looking forward to going to acute rehab. Compared other nights where she was completely disoriented and encephalopathic today she seems to be at her baseline and is able to carry on conversation and appear appropriate Objective - Vital Signs Vital signs: Vital Signs Temp 98 F 10/08/19 08:20 Pulse 93 10/08/19 08:20 Resp 18 10/08/19 08:20 BP 155/72 10/08/19 08:20 Pulse Ox 98 10/08/19 08:20 Intake & Output 10/07/19 10/08/19 10/08/19 18:59 06:59 18:59 Intake Total 222 222 240 Output Total 700 1800 Balance -618 -6266 240 Weight 104.5 kg 92.5 kg Intake: Oral 222 222 240 Output: Urine 700 1800 Other: Voiding Method Indwelling Catheter Indwelling Catheter Indwelling Catheter # Voids 400 # Bowel Movements 1 - Exam Patient examined chart reviewed. Mental status: Patient is awake alert oriented times place person. Speech is fluent. Pupils: 2 mm equally reactive to light and accommodation. Cranial nerves: Extraocular movements are full. There is no nystagmus noted on vertical horizontal gaze. Face appears symmetric. Palate elevates symmetrically. Shoulder shrug intact. Tongue midline without fasciculations deviation. Patient is able to move all 4 extremities equally. There is generalized weakness throughout mostly give way weakness due to effort. Strength in the upper extremities is -5 over 5 over the deltoids biceps brachial radialis and triceps. Hand endorsement clerk is 5 over 5. Bilaterally. Lower extremity testing: Patient is able to lift both legs off the bed and hold for 5 seconds. Strength is -5 over 5 over the hip flexors bilaterally. Foot flexion and extension is -5 over 5. Deep tendon reflexes deferred due to patient's amplification the pain. Next Sensory examination: Patient is intact to light touch throughout. Next line coordination testing: Intact to finger to nose testing sequential finger tapping without dysmetria. - Labs CBC & Chem 7: 10/08/19 07:36 10/08/19 07:36 Labs: Abnormal Lab Results - Last 24 Hours (Table) 10/06/19 10/07/19 10/07/19 Range/Units 10:18 11:56 16:41 RBC (3.80-5.40) m/uL Hgb (11.4-16.0) gm/dL Hct (34.0-46.0) % MCHC (31.0-37.0) g/dL RDW (11.5-15.5) % Plt Count (150-450) k/uL BUN (7-17) mg/dL Creatinine (0.52-1.04) mg/dL Glucose (74-99) mg/dL POC Glucose (mg/dL) 110 H 197 H (75-99) mg/dL Calcium (8.4-10.2) mg/dL Total Bilirubin (0.2-1.3) mg/dL Albumin (3.5-5.0) g/dL Crossmatch See Detail 10/07/19 10/08/19 10/08/19 Range/Units 19:55 07:36 07:36 RBC 3.29 L (3.80-5.40) m/uL Hgb 8.3 L (11.4-16.0) gm/dL Hct 28.1 L (34.0-46.0) % MCHC 29.5 L (31.0-37.0) g/dL RDW 18.5 H (11.5-15.5) % Plt Count 107 L (150-450) k/uL BUN 32 H (7-17) mg/dL Creatinine 1.47 H (0.52-1.04) mg/dL Glucose 101 H (74-99) mg/dL POC Glucose (mg/dL) 210 H (75-99) mg/dL Calcium 8.0 L (8.4-10.2) mg/dL Total Bilirubin 1.5 H (0.2-1.3) mg/dL Albumin 3.2 L (3.5-5.0) g/dL Crossmatch Microbiology - Last 24 Hours (Table) 10/06/19 08:21 Blood Culture - Preliminary Blood No Growth after 48 hours Assessment and Plan Assessment: There has been a significant improvement in patient's mental status over the last 24 hours. Patient continues to take Seroquel 25 mg at night which does appear to be helping to regulate her mood and cognition. Patient is still complaining of pain along the left torso. Progress note indicates that there are concerns in this area on the ultrasound. GI service is following this carefully. This patient can be cleared for discharge today to acute rehab. Her mental status has improved on Seroquel. This patient does have pain management issues that are to be addressed by traffic line painter. This should continue while in acute rehab and as outpatient. An EEG was attempted the patient was uncooperative. The EEG is technically difficult to interpret. Final EEG report pending. Recommendations: 1. Patient is cleared by neurology for discharge to acute rehab. 2. Patient should continue on Seroquel 25 mg at night for mood regulation and sleep. 3. Strongly recommend this patient be evaluated for obstructive sleep apnea Jimenez/central sleep apnea with an in lab polysomnogram as outpatient. Due to this patient's requirement for pain medications, obesity high risk for hypoventilation she could benefit quite well from a bilevel pressure device. Diagnosing and treating the obstructive sleep apnea overall will help manage her pain better. Sleep apnea has been associated with amplification the pain. Sleep apnea is the third bleeding risk factor for stroke independent of diabetes, hypertension and atrial fibrillation. 4. Recommend patient be followed up by neurologist as an outpatient to address peripheral neuropathy issues as well as her altered mental status. Patient may be showing early signs of vascular dementia. Patient also has significant stroke risk factors which need to be monitored carefully. Thank you for allowing me to participate in the care of your patient. Patient cleared by neurology for discharge to outpatient rehab. Marge Renner M.D. Board Certified in Neurology and Sleep Medicine
[2019-10-08 12:03] LABS: Glucose,Whole Blood 206 mg/dL (75-99)
--- NOTE | 2019-10-08 14:11 | EEG ---
ELECTROENCEPHALOGRAM REPORT DATE OF SERVICE: 10/08/2019 This is an inpatient EEG performed on a 73-year-old female with a history of altered mental status. She was admitted due to altered mental status, thought to be due to opioid use. During the interim of her hospitalization, she was found to have atrial fibrillation, profound anemia, and cellulitis of the lower extremities. This EEG is performed to rule out possibly an underlying seizure tendency. TECHNICAL REPORT: This is an inpatient EEG performed on the My Single Point EEG monitor with electrodes placed according to the International 10-20 system and a single EKG channel. Simultaneous video EEG monitoring was performed. This EEG was reviewed in both the longitudinal bipolar, common average referential and transverse montages. Photic stimulation was performed. Hyperventilation was not performed. The recording begins with the patient awake, talking with constant motion and movement artifact contaminating the background. Throughout this study, there was electrode artifact over the left frontal temporal head region, which at times made it very difficult to interpret the left hemisphere. The patient's wake background appears symmetric of [id number] voltage between 7-8 Hz. The posterior dominant rhythm attenuates with eye opening. Low amplitude beta activity is prominent over the anterior and central head regions. Photic stimulation was performed at various flash frequencies and failed to elicit consistent driving response. The EKG was noted to be irregular throughout the study. Sleep was not achieved during the study. IMPRESSION: This was a normal awake only EEG study. However, the EKG was abnormal frequently irregular. This study was also technically difficult to interpret due to the artifact coming from the T4 electrode placement that often with contaminate the frontal temporal area on the left hemisphere. CLINICAL CORRELATION: This EEG does not preclude an underlying seizure tendency thus further clinical correlation, if needed. If clinically indicated, serial EEGs or a more prolonged overnight study could provide additional clinical information. MMODL / IJN: [id number] /
[2019-10-08 14:38] VITALS: BP 100/50; PULSE 82; TEMP 98.5
--- NOTE | 2019-10-08 14:51 | P.DS ---
Providers Date of admission: 10/01/19 13:34 Expected date of discharge: 10/08/19 Attending physician: Virgil Hdz Consults: 10/01/19 13:06 Consult Physician Routine Consulting Provider: Chase Brewster Consult Reason/Comments: CHF exacerbation, SOB, anemia Do you want consulting provider notified?: Yes 10/02/19 14:14 Consult Physician Urgent Consulting Provider: German eBrnabe Consult Reason/Comments: Anemia and thrombocytopenia Do you want consulting provider notified?: Yes 10/03/19 16:59 Consult Physician Routine Consulting Provider: Ella Walters Consult Reason/Comments: altered mental status Do you want consulting provider notified?: Yes 10/04/19 09:26 Consult Physician Routine Consulting Provider: Abbie Butler Consult Reason/Comments: Iron def anemia. Eval for endosscopic bates Do you want consulting provider notified?: Yes 10/06/19 07:27 Consult to Anesthesia Routine Consulting Provider: Anesthesia,Services Consult Reason/Comments: pain control Primary care physician: Virgil Hdz - Discharge Diagnosis(es) (1) Anemia Current Visit: Yes Status: Acute (2) High risk for readmission Current Visit: Yes Status: Acute (3) Low back pain Current Visit: No Status: Acute Hospital Course: This is a discharge summary on a 73-year-old white female essentially admitted for anemia. She ended up having 2 units of PRBC transfused but has had diff iculty with opiate dependence and chronic pain elements. She was given 1 dose of opiates and was obtunded for several days. I do suspect this is related to element of history of transaminitis. She has now recovered but struggles with opiate dependence. Unfortunately, with her history of liver failure recently it is prohibited for her did take narcotic medication. Toradol was somewhat effective but she will be discharged with nonopiate medication and Lyrica 75 mg 3 times a day will be titrated. Prognosis is guarded secondary to her multiple comorbidities but she was transferred to [facility] because of mobility issues. Unfortunately, we started lidocaine patch and was in dissipating significant chronic pain consultation, but because of the coronavirus restrictions, this is considered nonessential and is not able to be done until later this month. Patient Condition at Discharge: Serious Plan - Discharge Summary New Discharge Prescriptions: New Bumetanide [BUMEX] 2 mg PO BID #60 tab Levofloxacin [Levaquin] 250 mg PO DAILY #5 tab Lidocaine 5% Patch [Lidoderm 5% Patch] 1 patch TOPICAL DAILY #30 patch Pregabalin [Lyrica] 75 mg PO TID #90 cap QUEtiapine [SEROquel] 25 mg PO HS #30 tab Capsaicin Cream [Trixaicin Cream] 1 applic TOPICAL QID #1 applic Continue Levothyroxine Sodium [Synthroid] 125 mcg PO DAILY Insulin NPL/Insulin Lispro [humaLOG MIX 75-25 VIAL] See Protocol SQ AC-TID Losartan [Cozaar] 50 mg PO DAILY Aspirin EC [Ecotrin Low Dose] 81 mg PO DAILY oxyCODONE-APAP 10-325MG [Percocet 10-325 mg] 1 tab PO Q6H PRN PRN Reason: Pain Atorvastatin [Lipitor] 80 mg PO DAILY #30 tab Metoprolol Tartrate [Lopressor] 25 mg PO BID #60 tab Nitroglycerin Sl Tabs [Nitrostat] 0.4 mg SUBLINGUAL Q5M PRN #50 tab PRN Reason: Chest Pain Isosorbide Mononitrate ER [Imdur] 30 mg PO DAILY #7 tab Pantoprazole Sodium [Protonix] 40 mg PO BID Silver Sulfadiazine 1 applic TOPICAL DAILY Baclofen 10 mg PO BID PRN #10 PRN Reason: Spasms Ketorolac [Toradol] 10 mg PO Q6H Discontinued Amoxic-Pot Clav 875-125Mg [Augmentin 875-125] 1 tab PO BID Bumetanide [Bumex] 1 mg PO BID Pregabalin [Lyrica] 50 mg PO TID Discharge Medication List Levothyroxine Sodium [Synthroid] 125 mcg PO DAILY 11/27/15 [History] Insulin NPL/Insulin Lispro [humaLOG MIX 75-25 VIAL] See Protocol SQ AC-TID 12/03/16 [History] Aspirin EC [Ecotrin Low Dose] 81 mg PO DAILY 09/09/18 [History] Losartan [Cozaar] 50 mg PO DAILY 09/09/18 [History] oxyCODONE-APAP 10-325MG [Percocet 10-325 mg] 1 tab PO Q6H PRN 01/26/19 [History] Atorvastatin [Lipitor] 80 mg PO DAILY #30 tab 01/27/19 [Rx] Metoprolol Tartrate [Lopressor] 25 mg PO BID #60 tab 01/27/19 [Rx] Nitroglycerin Sl Tabs [Nitrostat] 0.4 mg SUBLINGUAL Q5M PRN #50 tab 01/27/19 [Rx] Isosorbide Mononitrate ER [Imdur] 30 mg PO DAILY #7 tab 02/24/19 [Rx] Pantoprazole Sodium [Protonix] 40 mg PO BID 05/08/19 [History] Silver Sulfadiazine 1 applic TOPICAL DAILY 08/23/19 [History] Baclofen 10 mg PO BID PRN #10 09/05/19 [Rx] Ketorolac [Toradol] 10 mg PO Q6H 10/01/19 [History] Bumetanide [BUMEX] 2 mg PO BID #60 tab 10/08/19 [Rx] Capsaicin Cream [Trixaicin Cream] 1 applic TOPICAL QID #1 applic 10/08/19 [Rx] Levofloxacin [Levaquin] 250 mg PO DAILY #5 tab 10/08/19 [Rx] Lidocaine 5% Patch [Lidoderm 5% Patch] 1 patch TOPICAL DAILY #30 patch 10/08/19 [Rx] Pregabalin [Lyrica] 75 mg PO TID #90 cap 10/08/19 [Rx] QUEtiapine [SEROquel] 25 mg PO HS #30 tab 10/08/19 [Rx] Follow up Appointment(s)/Referral(s): Virgil Hdz MD [Primary Care Provider] - 1-2 days [facility], [NON-STAFF] -
[2019-10-08] MEDS ORDERED: PREGABALIN 75 MG CAP PO SCH (16:00)
--- NOTE | 2019-10-12 03:08 | CDI ---
Documentation Clarification Form Date: 10/12/2019 From: Pepe Sun Phone: If you have a question about this query, please contact Penelope Henley, Electrical Wirer at [phone] between 8am and 5pm. Admit Date: 10/01/2019 Discharge Date: 10/08/2019 Patient Name: Tsering Chan I Visit Number: [id number] ATTENTION: The Clinical Documentation Specialists (CDI) and [facility] Coding Staff appreciate your assistance in clarifying documentation. Please respond to the clarification below the line at the bottom and electronically sign. The CDI & [facility] Coding staff will review the response and follow-up if needed. Please note: Queries are made part of the Legal Health Record. If you have any questions, please contact the author of this message via ITS. Dear Virgil Jensen., Anemia is documented in the Discharge summary as Anemia unspecified. History/Risk Factors: Gi blood loss, CKD, CHF, Opiate dependence. Hemoglobin: 6.4L on admission 8.0L on discharge. Hematocrit: 21.9 L on admission, 27.0 on discharge Treatment: 2 units of transfusion. 10/06 Dr. German Bernabe note mentioned as "Normocytic Anemia: Likely multifactoral recent blood loss and renal dz Acute on Chronic ", Iron studies do reveal iron deficiency component . 10/03 dinorah Ch consult note "73-year-old female admitted for shortness of breath, with multiple medical comorbidities and noted to have an iron deficiency anemia". In order to capture the severity of condition, please clarify the type of anemia and etiology if known:. Acute on chronic blood loss anemia Iron deficiency anemia Anemia of chronic kidney disease Unable to determine Other, please specify MTDD
== END 2019-10-08 17:37 | DRG 811 ==
LOC: EC 11:24 → 3SCARD 13:34
PROVIDERS: ADMIT Family Medicine; ATTEND Family Medicine
PROC: 30233N1 Transfusion of Nonautologous Red Blood Cells into Peripheral Vein, Percutaneous Approach (ICD-10-PCS; principal; 2019-10-01)
DX: D50.0 Iron deficiency anemia secondary to blood loss (chronic) (principal); I50.33 Acute on chronic diastolic (congestive) heart failure; G92 Toxic encephalopathy; I13.0 Hypertensive heart and chronic kidney disease with heart failure and stage 1 through stage 4 chronic kidney disease, or unspecified chronic kidney disease; F11.20 Opioid dependence, uncomplicated; K92.2 Gastrointestinal hemorrhage, unspecified; D63.1 Anemia in chronic kidney disease; I25.10 Atherosclerotic heart disease of native coronary artery without angina pectoris; G89.29 Other chronic pain; E78.5 Hyperlipidemia, unspecified; E11.22 Type 2 diabetes mellitus with diabetic chronic kidney disease; D69.6 Thrombocytopenia, unspecified; I08.1 Rheumatic disorders of both mitral and tricuspid valves; I27.20 Pulmonary hypertension, unspecified; E83.51 Hypocalcemia; N18.3 Chronic kidney disease, stage 3 (moderate); M54.5 Low back pain; I48.0 Paroxysmal atrial fibrillation; E89.0 Postprocedural hypothyroidism; T39.95XA Adverse effect of unspecified nonopioid analgesic, antipyretic and antirheumatic, initial encounter; Z79.899 Other long term (current) drug therapy; Z11.59 Encounter for screening for other viral diseases; Z79.890 Hormone replacement therapy; Z79.82 Long term (current) use of aspirin; Z79.4 Long term (current) use of insulin; Z80.0 Family history of malignant neoplasm of digestive organs; Z80.8 Family history of malignant neoplasm of other organs or systems; Z82.49 Family history of ischemic heart disease and other diseases of the circulatory system; Z86.718 Personal history of other venous thrombosis and embolism; Z83.3 Family history of diabetes mellitus; Z87.891 Personal history of nicotine dependence; Z95.0 Presence of cardiac pacemaker; Z95.1 Presence of aortocoronary bypass graft; Z90.49 Acquired absence of other specified parts of digestive tract; Z98.890 Other specified postprocedural states; Z98.42 Cataract extraction status, left eye; Z98.41 Cataract extraction status, right eye; Z80.42 Family history of malignant neoplasm of prostate; Z83.438 Family history of other disorder of lipoprotein metabolism and other lipidemia; Z82.61 Family history of arthritis
CPT/HCPCS: 36415; 36600; 70450; 71045; 71046; 76705; 78582; 80053; 81001; 81003; 82140; 82150; 82272; 82607; 82668; 82728; 82746; 82784; 82805; 83010; 83540; 83550; 83605; 83615; 83735; 83880; 83883; 83921; 84145; 84165; 84439; 84443; 84480; 84484; 85025; 85027; 85045; 85379; 85610; 85613; 85652; 85730; 85732; 86038; 86140; 86334; 86431; 86850; 86900; 86901; 86920; 87040; 87086; 87635; 93005; 94760; 95816; 96374; 99285

== ENCOUNTER 2019-10-25 18:01 | Inpatient (IN) | payer MEDICARE, OTHER ==
[2019-10-25] MEDS ORDERED: SODIUM CHLORIDE 0.9% 1,000 ML IV ONE (18:22)
[2019-10-25] MEDS ORDERED: NALOXONE 0.4 MG/ML 1 ML VIAL IV STA (18:24)
[2019-10-25] MEDS ORDERED: NALOXONE 0.4 MG/ML 1 ML VIAL ONE (18:44)
[2019-10-25 18:55] LABS: Albumin 3.3 g/dL (3.5-5.0); Calcium 7.9 mg/dL (8.4-10.2); Potassium 4.2 mmol/L (3.5-5.1); Total Bilirubin 1.1 mg/dL (0.2-1.3); Total Protein 7.7 g/dL (6.3-8.2)
[2019-10-25 18:57] LABS: INR 1.1 (<1.2); Partial Thromboplastin Time 24.9 sec (22.0-30.0); Prothrombin Time 10.9 sec (9.0-12.0)
[2019-10-25 18:58] LABS: Anisocytosis Moderate; HCT 33.2 % (34.0-46.0); HGB 10.2 gm/dL (11.4-16.0); Hypochromasia Marked; MCH 25.5 pg (25.0-35.0); MCHC 30.7 g/dL (31.0-37.0); MCV 82.9 fL (80.0-100.0); Mean Platelet Volume 9.9; Microcytosis Slight; Platelet Count 210 k/uL (150-450); Poikilocytosis Slight; RDW 21.7 % (11.5-15.5); WBC 8.4 k/uL (3.8-10.6)
[2019-10-25 19:05] LABS: Glucose,Whole Blood 73 mg/dL (75-99)
--- NOTE | 2019-10-25 19:15 | ED ---
Altered Mental Status HPI - General Source: EMS Mode of arrival: EMS Limitations: altered mental status <Suzan Schaeffer - Last Filed: 10/26/19 01:09> <Juanjo Tyler - Last Filed: 10/27/19 07:46> - General Chief Complaint: Altered Mental Status Stated Complaint: Abn Labs Time Seen by Provider: 10/25/19 18:08 - History of Present Illness Initial Comments: 73-year-old female patient is sent from [facility] for elevated BUN and creatinine. Upon arrival patient is hypotensive in the 80s systolic. She is extremely drowsy and unarousable to painful stimuli only. She is unable to answer any questions. Patient has had dialysis in the past and does have a fistula in the left arm. She has past medical history significant for Atrial fibrillation, coronary artery disease, heart failure, diabetes, hyperlipidemia, hypertension. (Suzan Schaeffer) - Related Data Home Medications Medication Instructions Recorded Confirmed Levothyroxine Sodium [Synthroid] 125 mcg PO DAILY@0600 11/27/15 10/25/19 Insulin NPL/Insulin Lispro 10 unit SQ TID-W/MEALS 12/03/16 10/25/19 [humaLOG MIX 75-25 VIAL] Aspirin EC [Ecotrin Low Dose] 81 mg PO DAILY@89909/09/18 10/25/19 Losartan [Cozaar] 50 mg PO DAILY@89909/09/18 10/25/19 Pantoprazole Sodium [Protonix] 40 mg PO BID@0900,2100 05/08/19 10/25/19 Acetaminophen Tab [Tylenol] 650 mg PO Q4H PRN 10/25/19 10/25/19 Atorvastatin [Lipitor] 80 mg PO HS@209910/25/19 10/25/19 Bumetanide [BUMEX] 2 mg PO BID@0600,1400 10/25/19 10/25/19 Cefdinir 300 mg PO BID@0900,209910/25/19 10/25/19 DULoxetine HCL [Cymbalta] 30 mg PO BID@0900,209910/25/19 10/25/19 Ferrous Sulfate [Iron] 325 mg PO TID@0900,1300,209910/25/19 10/25/19 Isosorbide Mononitrate ER [Imdur] 30 mg PO DAILY@0900 10/25/19 10/25/19 Metoprolol Tartrate [Lopressor] 25 mg PO BID@0900,2100 10/25/19 10/25/19 Pregabalin [Lyrica] 75 mg PO HS@2100 10/25/19 10/25/19 cefTRIAXone [Rocephin] 1 gm IM ONCE 10/25/19 10/25/19 traMADol HCL [Ultram] 50 mg PO BID PRN 10/25/19 10/25/19 Previous Rx's Medication Instructions Recorded Nitroglycerin Sl Tabs [Nitrostat] 0.4 mg SUBLINGUAL Q5M PRN #50 tab 01/27/19 Baclofen 10 mg PO BID PRN #10 09/05/19 Lidocaine 5% Patch [Lidoderm 5% 1 patch TOPICAL DAILY #30 patch 10/08/19 Patch] Allergies Allergy/AdvReac Type Severity Reaction Status Date / Time No Known Allergies Allergy Verified 10/25/19 18:48 Review of Systems ROS Other: All systems not noted in ROS Statement are negative. <Suzan Schaeffer - Last Filed: 10/26/19 01:09> ROS Other: All systems not noted in ROS Statement are negative. <Juanjo Tyler - Last Filed: 10/27/19 07:46> ROS Statement: Those systems with pertinent positive or pertinent negative responses have been documented in the HPI. Past Medical History Past Medical History: Atrial Fibrillation, Coronary Artery Disease (CAD), Heart Failure, Diabetes Mellitus, Deep Vein Thrombosis (DVT), Hyperlipidemia, Hypertension, Renal Disease, Thyroid Disorder Additional Past Medical History / Comment(s): neuropathy,lupus, back pain, BACK WOUND-Healed, USES CANE , CATARACT bilat. History of Any Multi-Drug Resistant Organisms: VRE Date of last positivie culture/infection: 04/01/16 MDRO Source:: back Past Surgical History: Appendectomy, Back Surgery, Breast Surgery, Cholecystectomy, Coronary Bypass/CABG, Pacemaker Additional Past Surgical History / Comment(s): thyroidectomy. triple bypass 2000, CATARACT bilat EYE 11/2016, LUE dialysis port. 5 back sx. pt had 2 ablations in [place] for afib- unsuccessful. left arm fistula. Past Anesthesia/Blood Transfusion Reactions: No Reported Reaction Additional Past Anesthesia/Blood Transfusion Reaction / Comment(s): CLAUSTROPHOBIA. HAD A BLOOD TRANSFUSION 1968-NO REACTION. Type of Cardiac Device: Permanent Pacemaker Device Placement Date:: january 2018 Past Psychological History: No Psychological Hx Reported Smoking Status: Former smoker Past Alcohol Use History: None Reported Past Drug Use History: None Reported - Past Family History Father Family Medical History: Cancer Additional Family Medical History / Comment(s): prostate cancer Mother Family Medical History: Cancer, Congestive Heart Failure (CHF), Diabetes Mellitus, Hyperlipidemia, Hypertension, Osteoarthritis (OA) Additional Family Medical History / Comment(s): colon cancer Brother(s) Family Medical History: Coronary Artery Disease (CAD), Deep Vein Thrombosis (DVT) Additional Family Medical History / Comment(s): back surgery Sister(s) Family Medical History: Hyperlipidemia Additional Family Medical History / Comment(s): thyroid cancer <Suzan Schaeffer - Last Filed: 10/26/19 01:09> General Exam Limitations: altered mental status General appearance: obtunded, other (This is an extremely drowsy, well-nourished appearing female patient in no acute distress. Vital signs upon presentation are temperature 97.8F, pulse 91, respirations 16, blood pressure 83/51, pulse ox 97% on room air.) Eye exam: Present: normal appearance, PERRL, EOMI. Absent: scleral icterus, conjunctival injection, periorbital swelling ENT exam: Present: normal exam, normal oropharynx, mucous membranes moist Respiratory exam: Present: normal lung sounds bilaterally. Absent: respiratory distress, wheezes, rales, rhonchi, stridor Cardiovascular Exam: Present: regular rate, normal rhythm, normal heart sounds. Absent: systolic murmur, diastolic murmur, rubs, gallop, clicks GI/Abdominal exam: Present: soft, normal bowel sounds. Absent: distended, tenderness, guarding, rebound, rigid Neurological exam: Present: CN II-XII intact. Absent: alert (Abdomen), oriented X3 (Unable to determine) Psychiatric exam: Present: normal affect, normal mood Skin exam: Present: warm, dry, intact, normal color. Absent: rash <Suzan Schaeffer - Last Filed: 10/26/19 01:09> Course <Suzan Schaeffer - Last Filed: 10/26/19 01:09> <Trachy,Juanjo - Last Filed: 10/27/19 07:46> Vital Signs 10/25/19 10/25/19 10/25/19 18:09 18:44 18:59 Temperature 97.8 F Pulse Rate 91 87 Pulse Rate [ [employer] ] Respiratory 16 16 18 Rate Blood Pressure 83/51 96/63 Blood Pressure [Left Arm] O2 Sat by Pulse 97 95 Oximetry 10/25/19 10/25/19 10/25/19 19:20 19:40 20:00 Temperature Pulse Rate 84 85 Pulse Rate [ [employer] ] Respiratory 17 16 15 Rate Blood Pressure 113/61 86/72 107/51 Blood Pressure [Left Arm] O2 Sat by Pulse 96 97 100 Oximetry 10/25/19 10/25/19 10/25/19 20:20 20:40 21:00 Temperature Pulse Rate 86 80 80 Pulse Rate [ [employer] ] Respiratory 15 16 15 Rate Blood Pressure 105/47 94/48 90/49 Blood Pressure [Left Arm] O2 Sat by Pulse 100 100 100 Oximetry 10/25/19 10/25/19 10/25/19 21:20 21:40 22:00 Temperature Pulse Rate 82 73 78 Pulse Rate [ [employer] ] Respiratory 16 17 18 Rate Blood Pressure 94/44 98/47 102/52 Blood Pressure [Left Arm] O2 Sat by Pulse 100 100 100 Oximetry 10/25/19 10/25/19 10/25/19 22:20 22:40 23:00 Temperature Pulse Rate 79 84 75 Pulse Rate [ [employer] ] Respiratory 13 18 17 Rate Blood Pressure 101/56 121/67 126/74 Blood Pressure [Left Arm] O2 Sat by Pulse 100 95 100 Oximetry 10/25/19 10/25/19 10/26/19 23:20 23:40 00:00 Temperature Pulse Rate 73 87 76 Pulse Rate [ [employer] ] Respiratory 19 18 17 Rate Blood Pressure 102/61 99/61 112/58 Blood Pressure [Left Arm] O2 Sat by Pulse 98 99 99 Oximetry 10/26/19 10/26/19 10/26/19 00:20 00:40 00:52 Temperature Pulse Rate 80 81 Pulse Rate [ [employer] ] Respiratory 19 18 16 Rate Blood Pressure 106/52 100/51 Blood Pressure [Left Arm] O2 Sat by Pulse 99 100 Oximetry 10/26/19 10/26/19 10/26/19 01:20 02:00 02:40 Temperature Pulse Rate 96 90 84 Pulse Rate [ [employer] ] Respiratory 19 17 18 Rate Blood Pressure 124/63 117/61 Blood Pressure [Left Arm] O2 Sat by Pulse 100 100 100 Oximetry 10/26/19 10/26/19 10/26/19 03:00 03:20 03:40 Temperature Pulse Rate 77 87 85 Pulse Rate [ [employer] ] Respiratory 19 18 17 Rate Blood Pressure 104/46 106/54 95/56 Blood Pressure [Left Arm] O2 Sat by Pulse 100 99 98 Oximetry 10/26/19 10/26/19 10/26/19 04:00 06:00 07:30 Temperature 97.3 F L Pulse Rate 86 84 Pulse Rate [ 100 [employer] ] Respiratory 18 18 12 Rate Blood Pressure 111/50 99/45 Blood Pressure 124/46 [Left Arm] O2 Sat by Pulse 98 98 97 Oximetry 10/26/19 10/26/19 10/26/19 08:00 11:32 12:00 Temperature 98.6 F Pulse Rate Pulse Rate [ 100 105 H 105 H [employer] ] Respiratory 12 18 18 Rate Blood Pressure Blood Pressure 98/40 [Left Arm] O2 Sat by Pulse 93 L Oximetry 10/26/19 10/26/19 12:20 12:30 Temperature Pulse Rate 102 H 108 H Pulse Rate [ [employer] ] Respiratory Rate Blood Pressure Blood Pressure [Left Arm] O2 Sat by Pulse Oximetry - Reevaluation(s) Reevaluation #1: 10/25/19 18:[address] Mims is informed of patient's mental status and vital signs. (Suzan Schaeffer) Reevaluation #2: 10/26/19 07:13 I discussed the case with Dr. Tovar, who states that it appears the case is artery been discussed with (Juanjo Tyler) Medical Decision Making - Lab Data Result diagrams: 10/25/19 18:40 10/25/19 18:40 - EKG Data -: EKG Interpreted by Me - Radiology Data Radiology results: report reviewed, image reviewed <Suzan Schaeffer - Last Filed: 10/26/19 01:09> - Lab Data Result diagrams: 10/25/19 18:40 10/26/19 06:47 <Juanjo Tyler - Last Filed: 10/27/19 07:46> - Medical Decision Making 73-year-old female patient was brought to the emergency department today for evaluation of altered mental status and abnormal labs. Physical examination did reveal soft abdomen. The patient was very drowsy, arousable bolts of painful stimuli only. Was not answering questions or provide any history. Labs reviewed and did reveal elevated BUN and creatinine. She was given Narcan for possibility of excess opiate use. This did not change her mental status. Blood sugar was a little low so we did give an amp of dextrose 50% which did improve blood sugar but not her mentation. I did discuss the case with my attending physician Dr. Mims who felt the patient may be uremic from her acute on chronic renal failure so he did contact nephrology and ordered an emergent dialysis. Patient underwent the procedure. Patient is now more arousable, but remains drowsy. She was also found to have a urinary tract infection and right sided pneumonia. We did start antibiotics. She will be admitted to the telemetry unit. Neurology and nephrology are consulted. (Suzan Schaeffer) Receive this patient has a sign out pending her dialysis session. Reevaluation, patient poorly responsive. I did keep dose of Narcan and then the patient was able to converse though remains somewhat disoriented. (Juanjo Tyler) - Lab Data Lab Results 10/25/19 10/25/19 10/25/19 Range/Units 18:40 18:40 18:40 WBC 8.4 (3.8-10.6) k/uL RBC 4.00 (3.80-5.40) m/uL Hgb 10.2 L (11.4-16.0) gm/dL Hct 33.2 L (34.0-46.0) % MCV 82.9 (80.0-100.0) fL MCH 25.5 (25.0-35.0) pg MCHC 30.7 L (31.0-37.0) g/dL RDW 21.7 H (11.5-15.5) % Plt Count 210 (150-450) k/uL Neutrophils % (Manual) 74 % Lymphocytes % (Manual) 16 % Monocytes % (Manual) 11 % Neutrophils # (Manual) 6.22 (1.3-7.7) k/uL Lymphocytes # (Manual) 1.34 (1.0-4.8) k/uL Monocytes # (Manual) 0.92 (0-1.0) k/uL Nucleated RBCs 0 (0-0) /100 WBC Manual Slide Review Performed Hypochromasia Marked Poikilocytosis Slight Anisocytosis Moderate Microcytosis Slight PT 10.9 (9.0-12.0) sec INR 1.1 (<1.2) APTT 24.9 (22.0-30.0) sec Sodium 139 (137-145) mmol/L Potassium 4.2 (3.5-5.1) mmol/L Chloride 99 (98-107) mmol/L Carbon Dioxide 24 (22-30) mmol/L Anion Gap 16 mmol/L BUN 111 H* (7-17) mg/dL Creatinine 5.89 H (0.52-1.04) mg/dL Est GFR (CKD-EPI)AfAm 7 (>60 ml/min/1.73 sqM) Est GFR (CKD-EPI)NonAf 6 (>60 ml/min/1.73 sqM) Glucose 63 L (74-99) mg/dL POC Glucose (mg/dL) (75-99) mg/dL POC Glu Records Management Manager ID Plasma Lactic Acid Young (0.7-2.0) mmol/L Calcium 7.9 L (8.4-10.2) mg/dL Phosphorus (2.5-4.5) mg/dL Magnesium (1.6-2.3) mg/dL Total Bilirubin 1.1 (0.2-1.3) mg/dL AST 84 H (14-36) U/L ALT 35 H (4-34) U/L Alkaline Phosphatase 123 (38-126) U/L Ammonia (<30) umol/L Troponin I (0.000-0.034) ng/mL Total Protein 7.7 (6.3-8.2) g/dL Albumin 3.3 L (3.5-5.0) g/dL Urine Color Urine Appearance (Clear) Urine pH (5.0-8.0) Ur Specific [place] (1.001-1.035) Urine Protein (Negative) Urine Glucose (UA) (Negative) Urine Ketones (Negative) Urine Blood (Negative) Urine Nitrite (Negative) Urine Bilirubin (Negative) Urine Urobilinogen (<2.0) mg/dL Ur Leukocyte Esterase (Negative) Urine RBC (0-5) /hpf Urine WBC (0-5) /hpf Urine WBC Clumps (None) /hpf Ur Squamous Epith Cells (0-4) /hpf Amorphous Sediment (None) /hpf Urine Bacteria (None) /hpf Hyaline Casts (0-2) /lpf Urine Mucus (None) /hpf 10/25/19 10/25/19 10/25/19 Range/Units 18:40 18:40 18:40 WBC (3.8-10.6) k/uL RBC (3.80-5.40) m/uL Hgb (11.4-16.0) gm/dL Hct (34.0-46.0) % MCV (80.0-100.0) fL MCH (25.0-35.0) pg MCHC (31.0-37.0) g/dL RDW (11.5-15.5) % Plt Count (150-450) k/uL Neutrophils % (Manual) % Lymphocytes % (Manual) % Monocytes % (Manual) % Neutrophils # (Manual) (1.3-7.7) k/uL Lymphocytes # (Manual) (1.0-4.8) k/uL Monocytes # (Manual) (0-1.0) k/uL Nucleated RBCs (0-0) /100 WBC Manual Slide Review Hypochromasia Poikilocytosis Anisocytosis Microcytosis PT (9.0-12.0) sec INR (<1.2) APTT (22.0-30.0) sec Sodium (137-145) mmol/L Potassium (3.5-5.1) mmol/L Chloride (98-107) mmol/L Carbon Dioxide (22-30) mmol/L Anion Gap mmol/L BUN (7-17) mg/dL Creatinine (0.52-1.04) mg/dL Est GFR (CKD-EPI)AfAm (>60 ml/min/1.73 sqM) Est GFR (CKD-EPI)NonAf (>60 ml/min/1.73 sqM) Glucose (74-99) mg/dL POC Glucose (mg/dL) (75-99) mg/dL POC Glu Records Management Manager ID Plasma Lactic Acid Young 1.4 (0.7-2.0) mmol/L Calcium (8.4-10.2) mg/dL Phosphorus 8.0 H (2.5-4.5) mg/dL Magnesium 2.4 H (1.6-2.3) mg/dL Total Bilirubin (0.2-1.3) mg/dL AST (14-36) U/L ALT (4-34) U/L Alkaline Phosphatase (38-126) U/L Ammonia (<30) umol/L Troponin I 0.072 H* (0.000-0.034) ng/mL Total Protein (6.3-8.2) g/dL Albumin (3.5-5.0) g/dL Urine Color Urine Appearance (Clear) Urine pH (5.0-8.0) Ur Specific [place] (1.001-1.035) Urine Protein (Negative) Urine Glucose (UA) (Negative) Urine Ketones (Negative) Urine Blood (Negative) Urine Nitrite (Negative) Urine Bilirubin (Negative) Urine Urobilinogen (<2.0) mg/dL Ur Leukocyte Esterase (Negative) Urine RBC (0-5) /hpf Urine WBC (0-5) /hpf Urine WBC Clumps (None) /hpf Ur Squamous Epith Cells (0-4) /hpf Amorphous Sediment (None) /hpf Urine Bacteria (None) /hpf Hyaline Casts (0-2) /lpf Urine Mucus (None) /hpf 10/25/19 10/25/19 10/25/19 Range/Units 19:00 19:02 20:07 WBC (3.8-10.6) k/uL RBC (3.80-5.40) m/uL Hgb (11.4-16.0) gm/dL Hct (34.0-46.0) % MCV (80.0-100.0) fL MCH (25.0-35.0) pg MCHC (31.0-37.0) g/dL RDW (11.5-15.5) % Plt Count (150-450) k/uL Neutrophils % (Manual) % Lymphocytes % (Manual) % Monocytes % (Manual) % Neutrophils # (Manual) (1.3-7.7) k/uL Lymphocytes # (Manual) (1.0-4.8) k/uL Monocytes # (Manual) (0-1.0) k/uL Nucleated RBCs (0-0) /100 WBC Manual Slide Review Hypochromasia Poikilocytosis Anisocytosis Microcytosis PT (9.0-12.0) sec INR (<1.2) APTT (22.0-30.0) sec Sodium (137-145) mmol/L Potassium (3.5-5.1) mmol/L Chloride (98-107) mmol/L Carbon Dioxide (22-30) mmol/L Anion Gap mmol/L BUN (7-17) mg/dL Creatinine (0.52-1.04) mg/dL Est GFR (CKD-EPI)AfAm (>60 ml/min/1.73 sqM) Est GFR (CKD-EPI)NonAf (>60 ml/min/1.73 sqM) Glucose (74-99) mg/dL POC Glucose (mg/dL) 73 L 119 H (75-99) mg/dL POC Glu Records Management Manager ID KarthikeyanruparosamariaRose Ashley Plasma Lactic Acid Young (0.7-2.0) mmol/L Calcium (8.4-10.2) mg/dL Phosphorus (2.5-4.5) mg/dL Magnesium (1.6-2.3) mg/dL Total Bilirubin (0.2-1.3) mg/dL AST (14-36) U/L ALT (4-34) U/L Alkaline Phosphatase (38-126) U/L Ammonia (<30) umol/L Troponin I (0.000-0.034) ng/mL Total Protein (6.3-8.2) g/dL Albumin (3.5-5.0) g/dL Urine Color Yellow Urine Appearance Cloudy H (Clear) Urine pH 5.5 (5.0-8.0) Ur Specific [place] 1.015 (1.001-1.035) Urine Protein 1+ H (Negative) Urine Glucose (UA) Negative (Negative) Urine Ketones Negative (Negative) Urine Blood Moderate H (Negative) Urine Nitrite Negative (Negative) Urine Bilirubin Negative (Negative) Urine Urobilinogen 3.0 (<2.0) mg/dL Ur Leukocyte Esterase Large H (Negative) Urine RBC 13 H (0-5) /hpf Urine WBC >182 H (0-5) /hpf Urine WBC Clumps Many H (None) /hpf Ur Squamous Epith Cells 1 (0-4) /hpf Amorphous Sediment Rare H (None) /hpf Urine Bacteria Occasional H (None) /hpf Hyaline Casts 5 H (0-2) /lpf Urine Mucus Rare H (None) /hpf 10/25/19 10/26/19 Range/Units 20:41 00:37 WBC (3.8-10.6) k/uL RBC (3.80-5.40) m/uL Hgb (11.4-16.0) gm/dL Hct (34.0-46.0) % MCV (80.0-100.0) fL MCH (25.0-35.0) pg MCHC (31.0-37.0) g/dL RDW (11.5-15.5) % Plt Count (150-450) k/uL Neutrophils % (Manual) % Lymphocytes % (Manual) % Monocytes % (Manual) % Neutrophils # (Manual) (1.3-7.7) k/uL Lymphocytes # (Manual) (1.0-4.8) k/uL Monocytes # (Manual) (0-1.0) k/uL Nucleated RBCs (0-0) /100 WBC Manual Slide Review Hypochromasia Poikilocytosis Anisocytosis Microcytosis PT (9.0-12.0) sec INR (<1.2) APTT (22.0-30.0) sec Sodium (137-145) mmol/L Potassium (3.5-5.1) mmol/L Chloride (98-107) mmol/L Carbon Dioxide (22-30) mmol/L Anion Gap mmol/L BUN (7-17) mg/dL Creatinine (0.52-1.04) mg/dL Est GFR (CKD-EPI)AfAm (>60 ml/min/1.73 sqM) Est GFR (CKD-EPI)NonAf (>60 ml/min/1.73 sqM) Glucose (74-99) mg/dL POC Glucose (mg/dL) 99 (75-99) mg/dL POC Glu Records Management Manager ID Maureen Tse Plasma Lactic Acid Young (0.7-2.0) mmol/L Calcium (8.4-10.2) mg/dL Phosphorus (2.5-4.5) mg/dL Magnesium (1.6-2.3) mg/dL Total Bilirubin (0.2-1.3) mg/dL AST (14-36) U/L ALT (4-34) U/L Alkaline Phosphatase (38-126) U/L Ammonia <9 (<30) umol/L Troponin I (0.000-0.034) ng/mL Total Protein (6.3-8.2) g/dL Albumin (3.5-5.0) g/dL Urine Color Urine Appearance (Clear) Urine pH (5.0-8.0) Ur Specific [place] (1.001-1.035) Urine Protein (Negative) Urine Glucose (UA) (Negative) Urine Ketones (Negative) Urine Blood (Negative) Urine Nitrite (Negative) Urine Bilirubin (Negative) Urine Urobilinogen (<2.0) mg/dL Ur Leukocyte Esterase (Negative) Urine RBC (0-5) /hpf Urine WBC (0-5) /hpf Urine WBC Clumps (None) /hpf Ur Squamous Epith Cells (0-4) /hpf Amorphous Sediment (None) /hpf Urine Bacteria (None) /hpf Hyaline Casts (0-2) /lpf Urine Mucus (None) /hpf - EKG Data EKG Comments: EKG obtained at 1843 shows pacemaker, A. fib with PVCs, prolonged QT interval, ventricular rate 88, QRS duration 108, QT 420, QTC 508. No evidence of ST elevation or depression. (Suzan Schaeffer) - Radiology Data Two-view x-ray of the chest is obtained. Report is reviewed in its entirety. Impression by Dr. Fitzgerald shows increased density over the right hemithorax volume loss consistent with interstitial infiltrate and atelectasis that appears new compared to old exam. No obvious heart failure. Stable cardiomegaly. (Suzan Schaeffer) Critical Care Time Critical Care Time: Yes (35 minutes) <Juanjo Tyler - Last Filed: 10/27/19 07:46> Disposition Decision to Admit Reason: Admit from EC Decision Date: 10/26/19 Decision Time: 01:13 <Suzan Schaeffer - Last Filed: 10/26/19 01:09> <Juanjo Tyler - Last Filed: 10/27/19 07:46> Clinical Impression: Altered mental status, Uremia, Acute on chronic renal failure, Urinary tract infection, Pneumonia involving right lung Disposition: ADMITTED IP TO THIS HOSP Condition: Serious
[2019-10-25] MEDS ORDERED: DEXTROSE 50% SYRINGE 50 ML IVP STA (19:17)
[2019-10-25] MEDS ORDERED: SODIUM CHLORIDE 0.9% 1,000 ML IV STA ×2 (19:21→20:37)
--- NOTE | 2019-10-25 19:24 | XR ---
EXAMINATION TYPE: XR chest 2V DATE OF EXAM: 10/25/2019 COMPARISON: 10/04/2019 HISTORY: Possible aspiration Chest pain TECHNIQUE: FINDINGS: Heart is enlarged. Trachea is deviated slightly to the right side. There is increased inter stitial density in the right lung. There is a right axillary pacemaker. There are chest leads. There is no gross heart failure. IMPRESSION: Increased density over the right hemithorax and volume loss consistent with interstitial infiltrate and atelectasis that appears new compared to old exam. No obvious heart failure. Stable ca rdiomegaly.
[2019-10-25 19:49] LABS: Amorphous Sediment,Urine Rare /hpf; Appearance,Urine Cloudy (Clear); Bacteria,Urine Occasional /hpf; Bilirubin,Urine Negative (Negative); Blood,Urine Moderate (Negative); Color,Urine Yellow; Glucose,Urine (UA) Negative (Negative); Hyaline Casts,Urine 5 /lpf (0-2); Ketones,Urine Negative (Negative); Leukocyte Esterase,Urine Large (Negative); Mucus,Urine Rare /hpf; Nitrite,Urine Negative (Negative); PH, Urine 5.5 (5.0-8.0); Protein,Urine 1+ (Negative); RBC,Urine 13 /hpf (0-5); Specific Gravity,Urine 1.015 (1.001-1.035); Squamous Epithelial Cell,Urine 1 /hpf (0-4); WBC,Urine >182 /hpf (0-5)
[2019-10-25 19:57] LABS: Lymphocytes # (M) 1.34 k/uL (1.0-4.8); Monocytes # (M) 0.92 k/uL (0-1.0); Neutrophils # (M) 6.22 k/uL (1.3-7.7); Neutrophils % (M) 74 %; Nucleated Red Blood Cells 0 /100 WBC (0-0); Total Cells Counted 200
[2019-10-25 20:09] LABS: Glucose,Whole Blood 119 mg/dL (75-99)
--- NOTE | 2019-10-25 20:14 | CT ---
EXAMINATION TYPE: CT brain wo con DATE OF EXAM: 10/25/2019 COMPARISON: 10/03/2019 HISTORY: ams CT DLP: 1099.4 mGycm Automated exposure control for dose reduction was used. There is mild cerebral atrophy. There is no mass effect nor midline shift. There is no sign of intrac ranial hemorrhage. Calvarium is intact. IMPRESSION: Negative unenhanced head CT scan.
[2019-10-25] MEDS ORDERED: PIPERACILLIN-TAZOBACTAM 3.375 GM in SODIUM CHLORIDE 0.9% 100 ML IVPB STA (20:23)
[2019-10-25] MEDS ORDERED: LEVOFLOXACIN 750MG-D5W PMX 750 MG in DEXTROSE/WATER 1 150ML.BAG IVPB STA (20:23)
[2019-10-25 20:31] LABS: Magnesium 2.4 mg/dL (1.6-2.3)
[2019-10-26] MEDS ORDERED: PIPERACILLIN-TAZOBACTAM 3.375 GM in SODIUM CHLORIDE 0.9% 100 ML IVPB SCH ×2
[2019-10-26] MEDS ORDERED: NALOXONE 0.4 MG/ML 1 ML VIAL IV STA (00:20)
[2019-10-26 00:40] LABS: Glucose,Whole Blood 99 mg/dL (75-99)
[2019-10-26] MEDS ORDERED: NALOXONE 0.4 MG/ML 1 ML VIAL IV PRN (01:01)
[2019-10-26 02:04] LABS: VBG PH 7.46 (7.31-7.41)
[2019-10-26 04:32] LABS: Glucose,Whole Blood 111 mg/dL (75-99)
[2019-10-26 07:58] LABS: Glucose,Whole Blood 121 mg/dL (75-99)
[2019-10-26] MEDS ORDERED: NITROGLYCERIN SL TABS 0.4 MG TAB SUBLINGUAL PRN (09:15)
[2019-10-26] MEDS ORDERED: ACETAMINOPHEN TAB 325 MG TAB PO PRN (09:15)
[2019-10-26] MEDS: PIPERACILLIN-TAZOBACTAM 3.375 GM in SODIUM CHLORIDE 0.9% 100 ML IVPB SCH ×2 (09:56→21:24)
[2019-10-26] MEDS ORDERED: IPRATROPIUM-ALBUTEROL 3 ML NEB INHALATION PRN (11:12)
--- NOTE | 2019-10-26 11:31 | P.HPIM ---
History of Present Illness H&P Date: 10/26/19 Chief Complaint: Mental status changes This is a 73-year-old female patient previously of Dr. Hdz, currently is a long-term resident at [facility] under the care of Dr. Plata with past medical history of paroxysmal atrial fibrillation not on anticoagulation due to anemia status post permanent pacemaker, coronary artery disease status post triple bypass in 2000, moderate to severe pulmonary hypertension, moderate pulmonary regurgitation, chronic diastolic heart failure, diabetes mellitus type 2, DVT, hypertension, hyperlipidemia, chronic kidney disease with previous history of acute kidney injury requiring hemodialysis in April 2019 and previous dialysis in 2017 for 6 months for acute kidney injury and currently off dialysis. Patient does have a fistula in the left arm. Also history of hypothyroidism, neuropathy, chronic back pain, lupus, chronic anemia and chronic thrombocytopenia, remote history of tobacco use. She had a recent hospitalization September 30 through October 07 which time she was treated for anemia status post 2 units packed RBCs and opiate dependence with chronic pain. Patient received 1 dose of opiates was obtunded for several days. There was also history of transaminitis. There apparently is a difficulty with opiate dependence and history of liver failure prohibiting her from taking narcotic medications. Patient was seen by neurologist during hospitalization with recommendations to continue Seroquel for mood regulation and sleep and follow with outpatient neurology for peripheral neuropathy and altered mental status showing early signs of vascular dementia and workup for obstructive sleep apnea was recommended. Patient was also seen by oncology regarding anemia and thrombocytopenia. Patient was stabilized and discharged to [facility]. Patient was recently treated for UTI with Rocephin and Cefdinir. Patient states that she is not good. 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 She started wheezing about 1 hour ago. The patient does cry out in pain with any touch or movement of her body. She developed lethargy and mental status changes and was transferred to [facility] emergency center for further evaluation. She was afebrile, heart rate 91, blood pressure initially 83/51, pulse ox 97% on 4 L nasal cannula. EKG atrial fibrillation rate of 88. WBC 9.7, hemoglobin 9.6, platelet count 234. Electrolytes within normal limits, BUN 111, creatinine 5.89, calcium 7.9, phosphorus 8, magnesium 2.4. AST 84, ALT 85, alkaline phosphatase 123. Ammonia level less than 9. Troponins 0.072, 0.042, 0.039. TSH 19.1, free T4 2 0.45. Urinalysis cloudy, blood moderate, leukoesterase large, RBCs 13, the PVCs greater than 182, WBC clumps many. Initial blood sugar 63 status post 1 amp of D50. CAT scan of the brain was negative. Chest x-ray revealed increased d ensity over the right hemithorax and volume loss consistent with interstitial infiltrate and atelectasis appears new. No obvious heart failure. Stable cardiomegaly. Patient was started on Levaquin IV, Zosyn, IV fluids and admitted to the cardiac stepdown unit. Patient is currently waiting in the ER for a bed. Consults in place with nephrology, neurology and cardiology. The patient has undergone hemodialysis this morning. Review of Systems ROS unobtainable: due to mental status Past Medical History Past Medical History: Atrial Fibrillation, Coronary Artery Disease (CAD), Heart Failure, Diabetes Mellitus, Deep Vein Thrombosis (DVT), Hyperlipidemia, Hypertension, Renal Disease, Thyroid Disorder Additional Past Medical History / Comment(s): neuropathy,lupus, back pain, BACK WOUND-Healed, USES CANE , CATARACT bilat. History of Any Multi-Drug Resistant Organisms: VRE Date of last positivie culture/infection: 04/01/16 MDRO Source:: back Past Surgical History: Appendectomy, Back Surgery, Breast Surgery, Cholecystectomy, Coronary Bypass/CABG, Pacemaker Additional Past Surgical History / Comment(s): thyroidectomy. triple bypass 2000, CATARACT bilat EYE 11/2016, LUE dialysis port. 5 back sx. pt had 2 ablations in [place] for afib- unsuccessful. left arm fistula. Past Anesthesia/Blood Transfusion Reactions: No Reported Reaction Additional Past Anesthesia/Blood Transfusion Reaction / Comment(s): CLAUSTROPHOB IA. HAD A BLOOD TRANSFUSION 1968-NO REACTION. Type of Cardiac Device: Permanent Pacemaker Device Placement Date:: january 2018 Past Psychological History: No Psychological Hx Reported Smoking Status: Former smoker Past Alcohol Use History: None Reported Additional Past Alcohol Use History / Comment(s): Patient's or smoking at age 16 and quit in 2000 smoking 3 packs per day. She is single. Past Drug Use History: None Reported - Past Family History Father Family Medical History: Cancer Additional Family Medical History / Comment(s): prostate cancer Mother Family Medical History: Cancer, Congestive Heart Failure (CHF), Diabetes Mellitus, Hyperlipidemia, Hypertension, Osteoarthritis (OA) Additional Family Medical History / Comment(s): colon cancer Brother(s) Family Medical History: Coronary Artery Disease (CAD), Deep Vein Thrombosis (DVT) Additional Family Medical History / Comment(s): back surgery Sister(s) Family Medical History: Hyperlipidemia Additional Family Medical History / Comment(s): thyroid cancer Medications and Allergies Home Medications Medication Instructions Recorded Confirmed Type Levothyroxine Sodium [Synthroid] 125 mcg PO DAILY@0611/27/15 10/25/19 History Insulin NPL/Insulin Lispro 10 unit SQ TID-W/MEALS 12/03/16 10/25/19 History [humaLOG MIX 75-25 VIAL] Aspirin EC [Ecotrin Low Dose] 81 mg PO DAILY@89909/09/18 10/25/19 History Losartan [Cozaar] 50 mg PO DAILY@89909/09/18 10/25/19 History Nitroglycerin Sl Tabs [Nitrostat] 0.4 mg SUBLINGUAL Q5M PRN #50 tab 01/27/19 10/25/19 Rx Pantoprazole Sodium [Protonix] 40 mg PO BID@0900,209905/08/19 10/25/19 History Baclofen 10 mg PO BID PRN #10 09/05/19 10/25/19 Rx Lidocaine 5% Patch [Lidoderm 5% 1 patch TOPICAL DAILY #30 patch 10/08/19 10/25/19 Rx Patch] Acetaminophen Tab [Tylenol] 650 mg PO Q4H PRN 10/25/19 10/25/19 History Atorvastatin [Lipitor] 80 mg PO HS@209910/25/19 10/25/19 History Bumetanide [BUMEX] 2 mg PO BID@0600,1400 10/25/19 10/25/19 History Cefdinir 300 mg PO BID@0900,209910/25/19 10/25/19 History DULoxetine HCL [Cymbalta] 30 mg PO BID@0900,209910/25/19 10/25/19 History Ferrous Sulfate [Iron] 325 mg PO TID@0900,1300,209910/25/19 10/25/19 History Isosorbide Mononitrate ER [Imdur] 30 mg PO DAILY@00 10/25/19 10/25/19 History Metoprolol Tartrate [Lopressor] 25 mg PO BID@0900,209910/25/19 10/25/19 History Pregabalin [Lyrica] 75 mg PO HS@209910/25/19 10/25/19 History cefTRIAXone [Rocephin] 1 gm IM ONCE 10/25/19 10/25/19 History traMADol HCL [Ultram] 50 mg PO BID PRN 10/25/19 10/25/19 History Allergies Allergy/AdvReac Type Severity Reaction Status Date / Time No Known Allergies Allergy Verified 10/25/19 18:48 Physical Exam Vitals: Vital Signs Temp Pulse Pulse Resp BP BP Pulse Ox 10/26/19 07:30 97.3 F L 100 12 124/46 97 10/26/19 06:00 84 18 99/45 98 10/26/19 04:00 86 18 111/50 98 10/26/19 03:40 85 17 95/56 98 10/26/19 03:20 87 18 106/54 99 10/26/19 03:00 77 19 104/46 100 10/26/19 02:40 84 18 100 10/26/19 02:00 90 17 117/61 100 10/26/19 01:20 96 19 124/63 100 10/26/19 00:52 16 10/26/19 00:40 81 18 100/51 100 10/26/19 00:20 80 19 106/52 99 10/26/19 00:00 76 17 112/58 99 10/25/19 23:40 87 18 99/61 99 10/25/19 23:20 73 19 102/61 98 10/25/19 23:00 75 17 126/74 100 10/25/19 22:40 84 18 121/67 95 10/25/19 22:20 79 13 101/56 100 10/25/19 22:00 78 18 102/52 100 10/25/19 21:40 73 17 98/47 100 10/25/19 21:20 82 16 94/44 100 10/25/19 21:00 80 15 90/49 100 10/25/19 20:40 80 16 94/48 100 10/25/19 20:20 86 15 105/47 100 10/25/19 20:00 85 15 107/51 100 10/25/19 19:40 16 86/72 97 10/25/19 19:20 84 17 113/61 96 10/25/19 18:59 87 18 96/63 95 10/25/19 18:44 16 10/25/19 18:09 97.8 F 91 16 83/51 97 Intake and Output 10/25/19 10/26/19 10/26/19 22:59 06:59 14:59 Output Total 393 029 1382 Balance -500 -550 -1000 Output: Urine 070 271 2799 Uretheral (Simms) 500 Other: Weight 77.111 kg Gen: This is a 73-year-old female. Patient is resting on the ER stretcher. She is crying out with any movement in bed and with any light palpation to any area of her body. HEENT: Head is atraumatic, normocephalic. Pupils equal, round. Sclerae is anicteric. NECK: Supple. No JVD. No lymphadenopathy. No thyromegaly. LUNGS: Diminished at the bases with scattered wheezes. No intercostal retractions. HEART: Irregular rate and rhythm. Systolic murmur. 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 ABDOMEN: Soft. Bowel sounds are present. No masses. No tenderness. EXTREMITIES: Trace bilateral pedal edema. Dorsalis pedis palpable bilaterally. NEUROLOGICAL: Patient is awake, not alert and oriented to person only. Frequently closing eyes. Able to answer only very simple questions. Significant generalized weakness noted. No focal neural deficits. Results CBC & Chem 7: 10/25/19 18:40 10/25/19 18:40 Labs: Abnormal Lab Results - Last 24 Hours (Table) 10/25/19 10/25/19 10/25/19 Range/Units 18:40 18:40 18:40 Hgb 10.2 L (11.4-16.0) gm/dL Hct 33.2 L (34.0-46.0) % MCHC 30.7 L (31.0-37.0) g/dL RDW 21.7 H (11.5-15.5) % VBG pH (7.31-7.41) BUN 111 H* (7-17) mg/dL Creatinine 5.89 H (0.52-1.04) mg/dL Glucose 63 L (74-99) mg/dL POC Glucose (mg/dL) (75-99) mg/dL Calcium 7.9 L (8.4-10.2) mg/dL Phosphorus (2.5-4.5) mg/dL Magnesium (1.6-2.3) mg/dL AST 84 H (14-36) U/L ALT 35 H (4-34) U/L Troponin I 0.072 H* (0.000-0.034) ng/mL Albumin 3.3 L (3.5-5.0) g/dL Urine Appearance (Clear) Urine Protein (Negative) Urine Blood (Negative) Ur Leukocyte Esterase (Negative) Urine RBC (0-5) /hpf Urine WBC (0-5) /hpf Urine WBC Clumps (None) /hpf Amorphous Sediment (None) /hpf Urine Bacteria (None) /hpf Hyaline Casts (0-2) /lpf Urine Mucus (None) /hpf 10/25/19 10/25/19 10/25/19 Range/Units 18:40 19:00 19:02 Hgb (11.4-16.0) gm/dL Hct (34.0-46.0) % MCHC (31.0-37.0) g/dL RDW (11.5-15.5) % VBG pH (7.31-7.41) BUN (7-17) mg/dL Creatinine (0.52-1.04) mg/dL Glucose (74-99) mg/dL POC Glucose (mg/dL) 73 L (75-99) mg/dL Calcium (8.4-10.2) mg/dL Phosphorus 8.0 H (2.5-4.5) mg/dL Magnesium 2.4 H (1.6-2.3) mg/dL AST (14-36) U/L ALT (4-34) U/L Troponin I (0.000-0.034) ng/mL Albumin (3.5-5.0) g/dL Urine Appearance Cloudy H (Clear) Urine Protein 1+ H (Negative) Urine Blood Moderate H (Negative) Ur Leukocyte Esterase Large H (Negative) Urine RBC 13 H (0-5) /hpf Urine WBC >182 H (0-5) /hpf Urine WBC Clumps Many H (None) /hpf Amorphous Sediment Rare H (None) /hpf Urine Bacteria Occasional H (None) /hpf Hyaline Casts 5 H (0-2) /lpf Urine Mucus Rare H (None) /hpf 10/25/19 10/26/19 10/26/19 Range/Units 20:07 01:56 01:56 Hgb (11.4-16.0) gm/dL Hct (34.0-46.0) % MCHC (31.0-37.0) g/dL RDW (11.5-15.5) % VBG pH 7.46 H (7.31-7.41) BUN (7-17) mg/dL Creatinine (0.52-1.04) mg/dL Glucose (74-99) mg/dL POC Glucose (mg/dL) 119 H (75-99) mg/dL Calcium (8.4-10.2) mg/dL Phosphorus (2.5-4.5) mg/dL Magnesium (1.6-2.3) mg/dL AST (14-36) U/L ALT (4-34) U/L Troponin I 0.042 H* (0.000-0.034) ng/mL Albumin (3.5-5.0) g/dL Urine Appearance (Clear) Urine Protein (Negative) Urine Blood (Negative) Ur Leukocyte Esterase (Negative) Urine RBC (0-5) /hpf Urine WBC (0-5) /hpf Urine WBC Clumps (None) /hpf Amorphous Sediment (None) /hpf Urine Bacteria (None) /hpf Hyaline Casts (0-2) /lpf Urine Mucus (None) /hpf 10/26/19 10/26/19 10/26/19 Range/Units 04:17 06:47 07:53 Hgb (11.4-16.0) gm/dL Hct (34.0-46.0) % MCHC (31.0-37.0) g/dL RDW (11.5-15.5) % VBG pH (7.31-7.41) BUN (7-17) mg/dL Creatinine (0.52-1.04) mg/dL Glucose (74-99) mg/dL POC Glucose (mg/dL) 111 H 121 H (75-99) mg/dL Calcium (8.4-10.2) mg/dL Phosphorus (2.5-4.5) mg/dL Magnesium (1.6-2.3) mg/dL AST (14-36) U/L ALT (4-34) U/L Troponin I 0.039 H* (0.000-0.034) ng/mL Albumin (3.5-5.0) g/dL Urine Appearance (Clear) Urine Protein (Negative) Urine Blood (Negative) Ur Leukocyte Esterase (Negative) Urine RBC (0-5) /hpf Urine WBC (0-5) /hpf Urine WBC Clumps (None) /hpf Amorphous Sediment (None) /hpf Urine Bacteria (None) /hpf Hyaline Casts (0-2) /lpf Urine Mucus (None) /hpf Microbiology - Last 24 Hours (Table) 10/25/19 19:00 Urine Culture - Preliminary Urine,Voided Thrombosis Risk Factor Assmnt - DVT/VTE Prophylaxis DVT/VTE Prophylaxis: Pharmacologic Prophylaxis ordered Assessment and Plan Plan: 1. Metabolic encephalopathy secondary to a combination of acute kidney injury, possible aspiration pneumonia, UTI and sepsis, hypoglycemia, narcotic use. Treat underlying causes. Neurology consult. 2. Acute kidney injury. Patient underwent hemodialysis treatment this morning. Nephrology is on consult. 3. Possible aspiration pneumonia. Patient has received Levaquin and Zosyn. DuoNeb treatments scheduled 3 times daily and as needed. Speech therapy evaluation. 4. Urinary tract infection and sepsis. Continue IV antibiotics. Urine culture in process. Patient was treated with Rocephin and Cefdinir at [facility]. 5. Hypoglycemia. Patient is normally scheduled insulin will be discontinued. Continue NovoLog scale only. 6. Chronic pain with narcotic use. Patient had improvement of her mental status following Narcan. Tramadol will be decreased to 25 mg 4 times daily as needed only. 7. Elevated troponin, rule out non-ST elevated myocardial infarction. Cardiology consult. Continue aspirin 81 mg daily, atorvastatin 80 mg at bedtime, Imdur 30 mg daily. 8. Paroxysmal atrial fibrillation, not on anticoagulation due to anemia status post permanent pacemaker. Continue Lopressor 25 mg twice daily. 9. Coronary artery disease status post triple bypass in 2000. 10. Moderate to severe pulmonary hypertension, moderate pulmonary regurgitation. 11. Chronic diastolic heart failure. Continue Bumex. Continue dialysis. 12. Diabetes mellitus type 2, uncontrolled with hypoglycemia. Hold scheduled insulin. Continue NovoLog scale only. 13. Hypertension. Continue Lopressor. 14. Hyperlipidemia. Continue atorvastatin. 15. Chronic kidney disease stage III. 16. Hypothyroidism. Decrease levothyroxine to 100 g daily. 17. Chronic back pain and neuropathy. Continue Lyrica, baclofen, tramadol at reduced dose. 18. Anemia of chronic disease. Continue ferrous sulfate. 19. Chronic thrombocytopenia, stable. 20. Possible early vascular dementia. 21. Recurrent depression. Continue Cymbalta 30 mg twice daily. 22. Remote history of tobacco use and dependence. 23. COVID-19 infection not present as of September 30 admission. Testing in process for this admission. Patient will be admitted to the hospital for a minimum of 2 night stay. Discharge plan: Return to [facility]. Consult with medical social work. Impression and plan of care have been directed as dictated by the signing physician. Mary Borrego nurse practitioner acting as scribe for signing physician.
[2019-10-26 11:40] LABS: Albumin 2.8 g/dL (3.5-5.0); Calcium 7.8 mg/dL (8.4-10.2); Total Protein 6.9 g/dL (6.3-8.2)
[2019-10-26 11:41] LABS: Potassium 3.7 mmol/L (3.5-5.1)
[2019-10-26 11:42] LABS: Phosphorus 5.1 mg/dL (2.5-4.5)
[2019-10-26 11:55] LABS: Glucose,Whole Blood 145 mg/dL (75-99)
[2019-10-26] MEDS: traMADol 50 MG TAB PO PRN (12:12)
--- NOTE | 2019-10-26 12:17 | P.CRDCN ---
History of Present Illness History of present illness: HISTORY OF PRESENTING ILLNESS This is a pleasant 73-year-old female past medical history significant for coronary artery disease s/p bypass surgery in 2000, permanent pacemaker imp lantation, chronic persistent atrial fibrillation s/p ablation not on intermediate card tender anti-coagulation, renal failure requiring hemodialysis, hypertension, diabetes mellitus and hypothyroidism. She follows in the office with Dr. Brewster. We have been asked to see in consultation for elevated troponin. She presented to the emergency department from extended care facility secondary to hypotension and elevated creatinine along with altered mental status. She is seen and examined laying flat on the stretcher in the emergency department. She is groaning out at times incoherently. She is not conversing appropriately. She does not appear to be in any respiratory distress. Most recent echocardiogram obtained April 2019 reveals preserved LV systolic function with ejection fraction 55- 60%, severely dilated left atrium, mild MR, moderate TR, moderate to severe pulmonary hypertension with RVSP of 65 mmHg and moderate pulmonic regurgitation. Currently being treated for possible aspiration pneumonia. She underwent dialysis treatment this morning. DIAGNOSTICS EKG reveals paced with underlying atrial fibrillation heart rate of 88 PVCs. Chest xray increased density over the right hemithorax and volume loss consistent with interstitial infiltrates no obvious heart failure. Laboratory reviewed, sodium 140, potassium 3.7, creatinine on admission was 5.8 on repeat today 3.27, magnesium on admission 2. 4 repeat today to 0.0, troponin 0.072, 0.04-0.039. CBC with a CVA. 4, hemoglobin 10.2 and platelets 210. Current cardiac medications include aspirin 81 mg daily, Imdur 30 mg daily, atorvastatin 80 mg daily, Bumex 2 mg twice a day, losartan 50 mg daily, Lopressor 25 mg twice a day. REVIEW OF SYSTEMS At the time of my exam: Unable to obtain accurate review of systems secondary to altered mental status. PHYSICAL EXAMINATION Blood pressure 98/40 heart rate 105 afebrile and maintaining oxygen saturation on nasal cannula. CONSTITUTIONAL: No apparent distress. HEENT: Head is normocephalic. Pupils are equal, round. Sclerae anicteric. Mucous membranes of the mouth are moist. No JVD. No carotid bruit. CHEST EXAMINATION: Lungs are clear to auscultation. No chest wall tenderness is noted on palpation or with deep breathing. HEART EXAMINATION: Irregular rate and rhythm. S1, S2 heard. Systolic ejection murmur at the base, no gallops or rub. ABDOMEN: Soft, nontender. Positive bowel sounds. EXTREMITIES: 2+ peripheral pulses, no lower extremity edema and no calf tenderness. NEUROLOGIC EXAMINATION: Patient is awake and confused, moaning and yelling out at times. ASSESSMENT Altered mental status Acute on chronic renal failure, status post dialysis this morning. Troponin leak of unclear etiology. Pt not able to verbalize any symptoms of angina due to altered mental status. Could be secondary to renal function. Coronary artery disease status post bypass grafting Chronic persistent atrial fibrillation Permanent pacemaker implantation Pulmonary hypertension Diabetes mellitus Hypertension Dyslipidemia PLAN Bumex and losartan currently on hold secondary to renal failure. Continue lopressor. Repeat echocardiogram to assess for wall motion abnormalities. Further recommendations to follow based upon clinical course. Thank you kindly for this consultation. Nurse Practitioner note has been reviewed, I agree with a documented findings and plan of care. Patient was seen and examined. Past Medical History Past Medical History: Atrial Fibrillation, Coronary Artery Disease (CAD), Heart Failure, Diabetes Mellitus, Deep Vein Thrombosis (DVT), Hyperlipidemia, Hypertension, Renal Disease, Thyroid Disorder Additional Past Medical History / Comment(s): neuropathy,lupus, back pain, BACK WOUND-Healed, USES CANE , CATARACT bilat. History of Any Multi-Drug Resistant Organisms: VRE Date of last positivie culture/infection: 04/01/16 MDRO Source:: back Past Surgical History: Appendectomy, Back Surgery, Breast Surgery, Cholecystectomy, Coronary Bypass/CABG, Pacemaker Additional Past Surgical History / Comment(s): thyroidectomy. triple bypass 2000, CATARACT bilat EYE 11/2016, LUE dialysis port. 5 back sx. pt had 2 ablations in [facility] for afib- unsuccessful. left arm fistula. Past Anesthesia/Blood Transfusion Reactions: No Reported Reaction Additional Past Anesthesia/Blood Transfusion Reaction / Comment(s): CLAUSTROPHOBIA. HAD A BLOOD TRANSFUSION 1968-NO REACTION. Type of Cardiac Device: Permanent Pacemaker Device Placement Date:: january 2018 Past Psychological History: No Psychological Hx Reported Smoking Status: Former smoker Past Alcohol Use History: None Reported Additional Past Alcohol Use History / Comment(s): Patient's or smoking at age 16 and quit in 2000 smoking 3 packs per day. She is single. Past Drug Use History: None Reported - Past Family History Father Family Medical History: Cancer Additional Family Medical History / Comment(s): prostate cancer Mother Family Medical History: Cancer, Congestive Heart Failure (CHF), Diabetes Mellitus, Hyperlipidemia, Hypertension, Osteoarthritis (OA) Additional Family Medical History / Comment(s): colon cancer Brother(s) Family Medical History: Coronary Artery Disease (CAD), Deep Vein Thrombosis (DVT) Additional Family Medical History / Comment(s): back surgery Sister(s) Family Medical History: Hyperlipidemia Additional Family Medical History / Comment(s): thyroid cancer Medications and Allergies Home Medications Medication Instructions Recorded Confirmed Type Levothyroxine Sodium [Synthroid] 125 mcg PO DAILY@0600 11/27/15 10/25/19 History Insulin NPL/Insulin Lispro 10 unit SQ TID-W/MEALS 12/03/16 10/25/19 History [humaLOG MIX 75-25 VIAL] Aspirin EC [Ecotrin Low Dose] 81 mg PO DAILY@0909/09/18 10/25/19 History Losartan [Cozaar] 50 mg PO DAILY@0909/09/18 10/25/19 History Nitroglycerin Sl Tabs [Nitrostat] 0.4 mg SUBLINGUAL Q5M PRN #50 tab 01/27/19 10/25/19 Rx Pantoprazole Sodium [Protonix] 40 mg PO BID@0900,209905/08/19 10/25/19 History Baclofen 10 mg PO BID PRN #10 09/05/19 10/25/19 Rx Lidocaine 5% Patch [Lidoderm 5% 1 patch TOPICAL DAILY #30 patch 10/08/19 10/25/19 Rx Patch] Acetaminophen Tab [Tylenol] 650 mg PO Q4H PRN 10/25/19 10/25/19 History Atorvastatin [Lipitor] 80 mg PO HS@209910/25/19 10/25/19 History Bumetanide [BUMEX] 2 mg PO BID@0600,1400 10/25/19 10/25/19 History Cefdinir 300 mg PO BID@0900,209910/25/19 10/25/19 History DULoxetine HCL [Cymbalta] 30 mg PO BID@0900,2100 10/25/19 10/25/19 History Ferrous Sulfate [Iron] 325 mg PO TID@0900,1300,209910/25/19 10/25/19 History Isosorbide Mononitrate ER [Imdur] 30 mg PO DAILY@0900 10/25/19 10/25/19 History Metoprolol Tartrate [Lopressor] 25 mg PO BID@0900,209910/25/19 10/25/19 History Pregabalin [Lyrica] 75 mg PO HS@2100 10/25/19 10/25/19 History cefTRIAXone [Rocephin] 1 gm IM ONCE 10/25/19 10/25/19 History traMADol HCL [Ultram] 50 mg PO BID PRN 10/25/19 10/25/19 History Allergies Allergy/AdvReac Type Severity Reaction Status Date / Time No Known Allergies Allergy Verified 10/25/19 18:48 Physical Exam Vitals: Vital Signs Temp Pulse Pulse Resp BP BP Pulse Ox 10/26/19 11:32 98.6 F 105 H 18 98/40 93 L 10/26/19 08:00 100 12 10/26/19 07:30 97.3 F L 100 12 124/46 97 10/26/19 06:00 84 18 99/45 98 10/26/19 04:00 86 18 111/50 98 10/26/19 03:40 85 17 95/56 98 10/26/19 03:20 87 18 106/54 99 10/26/19 03:00 77 19 104/46 100 10/26/19 02:40 84 18 100 10/26/19 02:00 90 17 117/61 100 10/26/19 01:20 96 19 124/63 100 10/26/19 00:52 16 10/26/19 00:40 81 18 100/51 100 10/26/19 00:20 80 19 106/52 99 10/26/19 00:00 76 17 112/58 99 10/25/19 23:40 87 18 99/61 99 10/25/19 23:20 73 19 102/61 98 10/25/19 23:00 75 17 126/74 100 10/25/19 22:40 84 18 121/67 95 10/25/19 22:20 79 13 101/56 100 10/25/19 22:00 78 18 102/52 100 10/25/19 21:40 73 17 98/47 100 10/25/19 21:20 82 16 94/44 100 10/25/19 21:00 80 15 90/49 100 10/25/19 20:40 80 16 94/48 100 10/25/19 20:20 86 15 105/47 100 10/25/19 20:00 85 15 107/51 100 10/25/19 19:40 16 86/72 97 10/25/19 19:20 84 17 113/61 96 10/25/19 18:59 87 18 96/63 95 10/25/19 18:44 16 10/25/19 18:09 97.8 F 91 16 83/51 97 Intake and Output 10/25/19 10/26/19 10/26/19 22:59 06:59 14:59 Output Total 362 105 9149 Balance -500 -550 -2000 Output: Urine 085 263 [id number] Uretheral (Simms) 500 Other: Voiding Method Indwelling Catheter # Bowel Movements 1 Weight 77.111 kg 77.111 kg Results 10/25/19 18:40 10/26/19 06:47 Cardiac Enzymes 10/25/19 10/25/19 10/26/19 Range/Units 18:40 18:40 01:56 AST 84 H (14-36) U/L Troponin I 0.072 H* 0.042 H* (0.000-0.034) ng/mL 10/26/19 10/26/19 Range/Units 06:47 06:47 AST 88 H (14-36) U/L Troponin I 0.039 H* (0.000-0.034) ng/mL Coagulation 10/25/19 Range/Units 18:40 PT 10.9 (9.0-12.0) sec APTT 24.9 (22.0-30.0) sec CBC 10/25/19 Range/Units 18:40 WBC 8.4 (3.8-10.6) k/uL RBC 4.00 (3.80-5.40) m/uL Hgb 10.2 L (11.4-16.0) gm/dL Hct 33.2 L (34.0-46.0) % Plt Count 210 (150-450) k/uL Comprehensive Metabolic Panel 10/25/19 10/26/19 Range/Units 18:40 06:47 Sodium 139 140 (137-145) mmol/L Potassium 4.2 3.7 (3.5-5.1) mmol/L Chloride 99 105 (98-107) mmol/L Carbon Dioxide 24 20 L (22-30) mmol/L BUN 111 H* 67 H (7-17) mg/dL Creatinine 5.89 H 3.27 H (0.52-1.04) mg/dL Glucose 63 L 109 H (74-99) mg/dL Calcium 7.9 L 7.8 L (8.4-10.2) mg/dL AST 84 H 88 H (14-36) U/L ALT 35 H 35 H (4-34) U/L Alkaline Phosphatase 123 105 (38-126) U/L Total Protein 7.7 6.9 (6.3-8.2) g/dL Albumin 3.3 L 2.8 L (3.5-5.0) g/dL Current Medications Generic Name Dose Route Start Last Admin Trade Name Freq PRN Reason Stop Dose Admin Acetaminophen 650 mg 10/26/19 09:15 Tylenol Tab PO Q4H PRN Pain Albuterol/Ipratropium 3 ml 10/26/19 13:00 Duoneb 0.5 Mg-3 Mg/3 Ml Soln INHALATION RT-TID RUTH Albuterol/Ipratropium 3 ml 10/26/19 11:12 Duoneb 0.5 Mg-3 Mg/3 Ml Soln INHALATION RT-QID PRN Shortness Of Breath Or Wheezing Atorvastatin Calcium 80 mg 10/26/19 21:00 Lipitor PO HS@2100 [facility] Duloxetine HCl 30 mg 10/26/19 21:00 Cymbalta PO BID@0900,2100 [facility] Ferrous Sulfate 325 mg 10/26/19 13:00 Feosol PO TID@0900,1300,2100 [facility] Heparin Sodium (Porcine) 5,000 unit 10/26/19 21:00 Heparin SQ Q12HR RUTH Levofloxacin 500 mg/ IV 100 mls @ 100 mls/hr 10/27/19 21:00 Solution IVPB Q48H RUTH Piperacillin Sod/Tazobactam 100 mls @ 25 mls/hr 10/26/19 01:14 10/26/19 09:56 Sod 3.375 gm/ Sodium Chloride IVPB 25 mls/hr Q12HR RUTH Administration Sodium Chloride 1,000 mls @ 75 mls/hr 10/26/19 12:00 Saline 0.9% IV .[id number] [facility] Insulin Aspart 0 unit 10/26/19 12:30 Novolog SQ ACHS [facility] Protocol Isosorbide Mononitrate 30 mg 10/27/19 09:00 Imdur PO DAILY@0900 [facility] Levothyroxine Sodium 100 mcg 10/27/19 06:30 Synthroid PO DAILY@0630 [facility] Lidocaine 1 patch 10/27/19 09:00 Lidoderm TOPICAL DAILY [facility] Metoprolol Tartrate 25 mg 10/26/19 21:00 Lopressor PO BID@0900,2100 [facility] Naloxone HCl 0.2 mg 10/26/19 01:01 Narcan IV Q2M PRN Opioid Reversal Nitroglycerin 0.4 mg 10/26/19 09:15 Nitrostat SUBLINGUAL Q5M PRN Chest Pain Non-Formulary Medication 81 mg 10/27/19 09:00 Aspirin Ec PO DAILY@0900 [facility] Pantoprazole Sodium 40 mg 10/26/19 21:00 Protonix PO BID@0900,2100 [facility] Pregabalin 75 mg 10/26/19 21:00 Lyrica PO HS@2100 [facility] Tramadol HCl 25 mg 10/26/19 09:15 Ultram PO Q6H PRN Pain Intake and Output 10/25/19 10/26/19 10/26/19 22:59 06:59 14:59 Output Total 788 045 9400 Balance -500 -550 -2000 Output: Urine 051 438 [id number] Uretheral (Simms) 500 Other: Voiding Method Indwelling Catheter # Bowel Movements 1 Weight 77.111 kg 77.111 kg Patient Weight 10/27/19 06:59 Weight 77.111 kg 10/25/19 18:40 10/26/19 06:47
[2019-10-26] MEDS: INSULIN ASPART (NovoLOG) 100 UNIT/ML VIAL SQ SCH ×3 (12:19→21:24)
[2019-10-26] MEDS: IPRATROPIUM-ALBUTEROL 3 ML NEB INHALATION SCH ×2 (12:30→20:08)
--- NOTE | 2019-10-26 12:33 | P.NPCON ---
History of Present Illness - Reason for Consult acute renal failure, chronic renal failure - History of Present Illness Reason for consultation: Acute kidney injury on chronic kidney disease History of present illness: Patient is a 73-year-old female seen in consultation for acute kidney injury on chronic kidney disease. Patient presented from an extended care facility due to worsening of mental status as well as acute kidney injury. She was noted to have elevated BUN and creatinine when checked outpatient and was subsequently sent to the hospital. Patient was noted to be quite lethargic and unarousable on admission. BUN was 111 and creatinine was 5.89. Patient has chronic kidney disease stage III with baseline creatinine near 1.3-1.5 secondary to nephrosclerosis. She's had multiple episodes of acute kidney injury in the past and has also required renal replacement therapy. She has a left upper extremity AV fistula. She underwent emergent hemodialysis last night for uremia. However this morning her mentation has not improved. She is scheduled to undergo another hemodialysis treatment today. Her blood pressure was in the systolic 80s on admission. She did receive about 3 L of normal saline bolus on admission. She is currently not on any IV fluids. She has a Simms catheter. Urine output documented as 2 L so far. UA suggestive of UTI. She is receiving IV antibiotics. Vital signs are stable. General: The patient appeared well nourished and normally developed. HEENT: Head exam is unremarkable. Neck is without jugular venous distension. LUNGS: Breath sounds decreased. HEART: Rate and Rhythm are regular. ABDOMEN: Soft, no distention noted. EXTREMITITES: No edema. Past Medical History Past Medical History: Atrial Fibrillation, Coronary Artery Disease (CAD), Heart Failure, Diabetes Mellitus, Deep Vein Thrombosis (DVT), Hyperlipidemia, Hypertension, Renal Disease, Thyroid Disorder Additional Past Medical History / Comment(s): neuropathy,lupus, back pain, BACK WOUND-Healed, USES CANE , CATARACT bilat. History of Any Multi-Drug Resistant Organisms: VRE Date of last positivie culture/infection: 04/01/16 MDRO Source:: back Past Surgical History: Appendectomy, Back Surgery, Breast Surgery, Cholecy stectomy, Coronary Bypass/CABG, Pacemaker Additional Past Surgical History / Comment(s): thyroidectomy. triple bypass 2000, CATARACT bilat EYE 11/2016, LUE dialysis port. 5 back sx. pt had 2 ablations in [place] for afib- unsuccessful. left arm fistula. Past Anesthesia/Blood Transfusion Reactions: No Reported Reaction Additional Past Anesthesia/Blood Transfusion Reaction / Comment(s): CLAUSTROPHOBIA. HAD A BLOOD TRANSFUSION 1968-NO REACTION. Type of Cardiac Device: Permanent Pacemaker Device Placement Date:: january 2018 Past Psychological History: No Psychological Hx Reported Smoking Status: Former smoker Past Alcohol Use History: None Reported Additional Past Alcohol Use History / Comment(s): Patient's or smoking at age 16 and quit in 2000 smoking 3 packs per day. She is single. Past Drug Use History: None Reported - Past Family History Father Family Medical History: Cancer Additional Family Medical History / Comment(s): prostate cancer Mother Family Medical History: Cancer, Congestive Heart Failure (CHF), Diabetes Mellitus, Hyperlipidemia, Hypertension, Osteoarthritis (OA) Additional Family Medical History / Comment(s): colon cancer Brother(s) Family Medical History: Coronary Artery Disease (CAD), Deep Vein Thrombosis (DVT) Additional Family Medical History / Comment(s): back surgery Sister(s) Family Medical History: Hyperlipidemia Additional Family Medical History / Comment(s): thyroid cancer Medications and Allergies Home Medications Medication Instructions Recorded Confirmed Type Levothyroxine Sodium [Synthroid] 125 mcg PO DAILY@0600 11/27/15 10/25/19 History Insulin NPL/Insulin Lispro 10 unit SQ TID-W/MEALS 12/03/16 10/25/19 History [humaLOG MIX 75-25 VIAL] Aspirin EC [Ecotrin Low Dose] 81 mg PO DAILY@0900 09/09/18 10/25/19 History Losartan [Cozaar] 50 mg PO DAILY@0900 09/09/18 10/25/19 History Nitroglycerin Sl Tabs [Nitrostat] 0.4 mg SUBLINGUAL Q5M PRN #50 tab 01/27/19 10/25/19 Rx Pantoprazole Sodium [Protonix] 40 mg PO BID@0900,2100 05/08/19 10/25/19 History Baclofen 10 mg PO BID PRN #10 09/05/19 10/25/19 Rx Lidocaine 5% Patch [Lidoderm 5% 1 patch TOPICAL DAILY #30 patch 10/08/19 10/25/19 Rx Patch] Acetaminophen Tab [Tylenol] 650 mg PO Q4H PRN 10/25/19 10/25/19 History Atorvastatin [Lipitor] 80 mg PO HS@209910/25/19 10/25/19 History Bumetanide [BUMEX] 2 mg PO BID@0600,1400 10/25/19 10/25/19 History Cefdinir 300 mg PO BID@0900,209910/25/19 10/25/19 History DULoxetine HCL [Cymbalta] 30 mg PO BID@0900,209910/25/19 10/25/19 History Ferrous Sulfate [Iron] 325 mg PO TID@0900,1300,209910/25/19 10/25/19 History Isosorbide Mononitrate ER [Imdur] 30 mg PO DAILY@0910/25/19 10/25/19 History Metoprolol Tartrate [Lopressor] 25 mg PO BID@0900,209910/25/19 10/25/19 History Pregabalin [Lyrica] 75 mg PO HS@209910/25/19 10/25/19 History cefTRIAXone [Rocephin] 1 gm IM ONCE 10/25/19 10/25/19 History traMADol HCL [Ultram] 50 mg PO BID PRN 10/25/19 10/25/19 History Allergies Allergy/AdvReac Type Severity Reaction Status Date / Time No Known Allergies Allergy Verified 10/25/19 18:48 Physical Exam Vitals: Vital Signs Temp Pulse Pulse Resp BP BP Pulse Ox 10/26/19 11:32 98.6 F 105 H 18 98/40 93 L 10/26/19 08:00 100 12 10/26/19 07:30 97.3 F L 100 12 124/46 97 10/26/19 06:00 84 18 99/45 98 10/26/19 04:00 86 18 111/50 98 10/26/19 03:40 85 17 95/56 98 10/26/19 03:20 87 18 106/54 99 10/26/19 03:00 77 19 104/46 100 10/26/19 02:40 84 18 100 10/26/19 02:00 90 17 117/61 100 10/26/19 01:20 96 19 124/63 100 10/26/19 00:52 16 10/26/19 00:40 81 18 100/51 100 10/26/19 00:20 80 19 106/52 99 10/26/19 00:00 76 17 112/58 99 10/25/19 23:40 87 18 99/61 99 10/25/19 23:20 73 19 102/61 98 10/25/19 23:00 75 17 126/74 100 10/25/19 22:40 84 18 121/67 95 10/25/19 22:20 79 13 101/56 100 10/25/19 22:00 78 18 102/52 100 10/25/19 21:40 73 17 98/47 100 10/25/19 21:20 82 16 94/44 100 10/25/19 21:00 80 15 90/49 100 10/25/19 20:40 80 16 94/48 100 10/25/19 20:20 86 15 105/47 100 10/25/19 20:00 85 15 107/51 100 10/25/19 19:40 16 86/72 97 10/25/19 19:20 84 17 113/61 96 10/25/19 18:59 87 18 96/63 95 10/25/19 18:44 16 10/25/19 18:09 97.8 F 91 16 83/51 97 Intake and Output 10/25/19 10/26/19 10/26/19 22:59 06:59 14:59 Output Total 398 113 8795 Balance -500 -550 -2000 Output: Urine 803 026 4632 Uretheral (Simms) 500 Other: Voiding Method Indwelling Catheter # Bowel Movements 1 Weight 77.111 kg 77.111 kg Results - Lab Results Most recent lab results Calcium 7.8 mg/dL (8.4-10.2) L 10/26/19 06:47 Phosphorus 5.1 mg/dL (2.5-4.5) H 10/26/19 06:47 Magnesium 2.0 mg/dL (1.6-2.3) 10/26/19 06:47 10/25/19 18:40 10/26/19 06:47 Assessment and Plan Plan: Assessment: 1. Acute kidney injury secondary to ATN secondary to hypotension. Creatinine 5.8 and on admission. BUN 111. Status post hemodialysis due to concern for uremia. 2. Chronic kidney disease stage III with baseline creatinine in the range of 1.3-1.5. 3. Altered mental status. Uremia versus sepsis. Status post hemodialysis without much improvement. CT of the head revealed no acute changes. 4. UTI maintained on antibiotics. Urine culture pending. 5. Possible pneumonia. 6. Insulin-dependent diabetes mellitus. 7. Chronic diastolic CHF with ejection fraction of 55-60%. 8. Hyperphosphatemia secondary to acute kidney injury. Improved postdialysis. Plan: Second treatment of hemodialysis today. Will use 17-gauge needles. Normal saline at 75 mL an hour. Maintain Simms catheter area and strict is and os. Follow up cultures. Avoid nephrotoxins. Continue to monitor renal function for recovery. Check renal ultrasound. Thank you for the consultation. I will continue to follow patient with you during her hospital stay.
[2019-10-26] MEDS: SODIUM CHLORIDE 0.9% 1,000 ML IV SCH (12:50)
[2019-10-26] MEDS: ISOSORBIDE MONONITRATE ER 30 MG TAB.ER.24H PO SCH (13:17)
[2019-10-26] MEDS: FERROUS SULFATE 325 MG TAB PO SCH ×2 (13:21→22:58)
[2019-10-26] MEDS ORDERED: BUMETANIDE 2 MG PO SCH (14:00)
[2019-10-26] MEDS: LIDOCAINE 5% PATCH TOPICAL SCH (14:04)
[2019-10-26] MEDS: DULoxetine HCL 30 MG CAPSULE.DR PO SCH ×2 (14:06→22:58)
--- NOTE | 2019-10-26 14:36 | US ---
EXAMINATION TYPE: US kidneys/renal and bladder DATE OF EXAM: 10/26/2019 COMPARISON: NONE CLINICAL HISTORY: tyler. EXAM MEASUREMENTS: Right Kidney: 9.4 x 4.4 x 4.3 cm Left Kidney: 9.6 x 4.8 x 4.5 cm Patient of large body habitus, incoherent, unable to cooperate with examiner or move from supine posi tion Right Kidney: Limited visualization, inferior pole obscured by bowel gas , wnl as seen Left Kidney: Very limited visualization, no obvious masses seen Bladder: padron IMPRESSION: Markedly Limited exam demonstrates no obvious abnormality.
[2019-10-26 16:40] LABS: Glucose,Whole Blood 128 mg/dL (75-99)
[2019-10-26 20:06] LABS: Glucose,Whole Blood 167 mg/dL (75-99)
[2019-10-26] MEDS ORDERED: METOPROLOL TARTRATE 25 MG TAB PO SCH (21:00)
[2019-10-26] MEDS ORDERED: LEVOFLOXACIN 750MG-D5W PMX 750 MG in DEXTROSE/WATER 1 150ML.BAG IVPB SCH (21:00)
[2019-10-26] MEDS: ATORVASTATIN 80 MG TAB PO SCH (22:58)
[2019-10-26] MEDS: PREGABALIN 75 MG CAP PO SCH (22:58)
[2019-10-26] MEDS: PANTOPRAZOLE 40 MG TABLET PO SCH (22:59)
[2019-10-26] MEDS: METOPROLOL TARTRATE 25 MG TAB PO SCH (22:59)
[2019-10-26] MEDS: HEPARIN SODIUM,PORCINE 5,000 UNIT/ML 1 ML VIAL SQ SCH (22:59)
[2019-10-27] MEDS: SODIUM CHLORIDE 0.9% 1,000 ML IV SCH ×2 (01:11→17:29)
[2019-10-27] MEDS: traMADol 50 MG TAB PO PRN ×2 (04:17→14:39)
[2019-10-27] MEDS ORDERED: LEVOTHYROXINE 125 MCG TAB PO SCH (06:00)
[2019-10-27 06:19] LABS: Glucose,Whole Blood 119 mg/dL (75-99)
[2019-10-27] MEDS: LEVOTHYROXINE 100 MCG TAB PO SCH (06:26)
[2019-10-27] MEDS: INSULIN ASPART (NovoLOG) 100 UNIT/ML VIAL SQ SCH ×4 (06:36→20:45)
[2019-10-27] MEDS: IPRATROPIUM-ALBUTEROL 3 ML NEB INHALATION SCH ×3 (06:55→20:07)
[2019-10-27 07:38] LABS: Albumin 2.6 g/dL (3.5-5.0); Calcium 7.3 mg/dL (8.4-10.2); Magnesium 1.8 mg/dL (1.6-2.3); Phosphorus 4.6 mg/dL (2.5-4.5); Total Protein 6.6 g/dL (6.3-8.2)
[2019-10-27 07:48] LABS: Potassium 3.8 mmol/L (3.5-5.1)
[2019-10-27 08:00] LABS: Anisocytosis Moderate; Basophils % (A) 0 %; Eosinophils # (A) 0.1 k/uL (0-0.7); Eosinophils % (A) 1 %; HCT 28.7 % (34.0-46.0); Hypochromasia Marked; Lymphocytes # (A) 0.9 k/uL (1.0-4.8); Lymphocytes % (A) 12 %; MCH 25.9 pg (25.0-35.0); MCHC 30.3 g/dL (31.0-37.0); MCV 85.5 fL (80.0-100.0); Mean Platelet Volume 9.8; Microcytosis Slight; Monocytes # (A) 0.5 k/uL (0-1.0); Monocytes % (A) 6 %; Neutrophils # (A) 6.1 k/uL (1.3-7.7); Neutrophils % (A) 77 %; Platelet Count 180 k/uL (150-450); Poikilocytosis Slight; RBC 3.35 m/uL (3.80-5.40); RDW 21.2 % (11.5-15.5); WBC 7.9 k/uL (3.8-10.6)
[2019-10-27] MEDS: LIDOCAINE 5% PATCH TOPICAL SCH (08:17)
[2019-10-27] MEDS: PIPERACILLIN-TAZOBACTAM 3.375 GM in SODIUM CHLORIDE 0.9% 100 ML IVPB SCH ×2 (08:20→22:45)
[2019-10-27] MEDS: PANTOPRAZOLE 40 MG TABLET PO SCH ×2 (08:26→20:45)
[2019-10-27] MEDS: ASPIRIN 81 MG PO SCH (08:26)
[2019-10-27] MEDS: FERROUS SULFATE 325 MG TAB PO SCH ×3 (08:26→20:45)
[2019-10-27] MEDS: DULoxetine HCL 30 MG CAPSULE.DR PO SCH ×2 (08:26→20:44)
[2019-10-27] MEDS: HEPARIN SODIUM,PORCINE 5,000 UNIT/ML 1 ML VIAL SQ SCH ×2 (08:26→20:45)
[2019-10-27 08:38] LABS: HGB 8.7 gm/dL (11.4-16.0)
--- NOTE | 2019-10-27 09:00 | ECHOF ---
Referral Reason:mildly elev trop MEASUREMENTS -------- HEIGHT: 167.6 cm WEIGHT: 77.1 kg BP: 98/40 RVIDd: 3.0 cm (< 3.3) IVSd: 1.1 cm (0.6 - 1.1) LVIDd: 3.3 cm (3.9 - 5.3) LVPWd: 1.0 cm (0.6 - 1.1) IVSs: 1.6 cm LVIDs: 2.8 cm LVPWs: 1.1 cm LA Diam: 3.1 cm (2.7 - 3.8) Ao Diam: 2.7 cm (2.0 - 3.7) AV Cusp: 1.9 cm (1.5 - 2.6) MV EXCURSION: 22.169 mm (> 18.000) MV EF SLOPE: 223 mm/s (70 - 150) EPSS: 0.6 cm RAP: 15.00 mmHg RVSP: 47.09 mmHg FINDINGS -------- Paced rhythm. This was a technically adequate study. The left ventricular size is normal. There is borderline concentric left ventricular hypertrophy. Overall left ventricular systolic function is normal with, an EF between 55 - 60 %. The right ventricle is normal in size. The left atrial size is normal. The right atrium is normal in size. Interatrial and interventricular septum intact. There is mild aortic valve sclerosis. Mild mitral annular calcification present. Mild tricuspid regurgitation present. There is mild to moderate pulmonary hypertension. The right ventricular systolic pressure, as measured by Doppler, is 47.09mmHg. There is no pulmonic regurgitation present. The aortic root size is normal. Normal inferior vena cava with less than 50% inspiratory collapse consistent with estimated right atr ial pressure of 15 mmHg. The inferior vena cava is mildly dilated. There is no pericardial effusion. CONCLUSIONS -------- 1. Paced rhythm. 2. This was a technically adequate study. 3. The left ventricular size is normal. 4. There is borderline concentric left ventricular hypertrophy. 5. Overall left ventricular systolic function is normal with, an EF between 55 - 60 %. 6. The right ventricle is normal in size. 7. The left atrial size is normal. 8. The right atrium is normal in size. 9. Interatrial and interventricular septum intact. 10. There is mild aortic valve sclerosis. 11. Mild mitral annular calcification present. 12. Mild tricuspid regurgitation present. 13. There is mild to moderate pulmonary hypertension. 14. The right ventricular systolic pressure, as measured by Doppler, is 47.09mmHg. 15. There is no pulmonic regurgitation present. 16. The aortic root size is normal. 17. Normal inferior vena cava with less than 50% inspiratory collapse consistent with estimated right atrial pressure of 15 mmHg. 18. The inferior vena cava is mildly dilated. 19. There is no pericardial effusion. [employer] ANALYST: Aga Estevez RDCS
--- NOTE | 2019-10-27 12:06 | P.PN ---
Subjective Progress Note Date: 10/27/19 This is a 73-year-old female patient previously of Dr. Hdz, currently is a long-term resident at [facility] under the care of Dr. Plata with past medical history of paroxysmal atrial fibrillation not on anticoagulation due to anemia status post permanent pacemaker, coronary artery disease status post triple bypass in 2000, moderate to severe pulmonary hypertension, moderate pulmonary regurgitation, chronic diastolic heart failure, diabetes mellitus type 2, DVT, hypertension, hyperlipidemia, chronic kidney disease with previous history of acute kidney injury requiring hemodialysis in April 2019 and previous dialysis in 2017 for 6 months for acute kidney injury and currently off dialysis. Patient does have a fistula in the left arm. Also history of hypothyroidism, neuropathy, chronic back pain, lupus, chronic anemia and chronic thrombocytopenia, remote history of tobacco use. She had a recent hospitalization September 30 through October 07 which time she was treated for anemia status post 2 units packed RBCs and opiate dependence with chronic pain. Patient received 1 dose of opiates was obtunded for several days. There was also history of transaminitis. There apparently is a difficulty with opiate dependence and history of liver failure prohibiting her from taking narcotic medications. Patient was seen by neurologist during hospitalization with recommendations to continue Seroquel for mood regulation and sleep and follow with outpatient neurology for peripheral neuropathy and altered mental status showing early signs of vascular dementia and workup for obstructive sleep apnea was recommended. Patient was also seen by oncology regarding anemia and thrombocytopenia. Patient was stabilized and discharged to [facility]. Patient was recently treated for UTI with Rocephin and Cefdinir. Patient states that she is not good. 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 She started wheezing about 1 hour ago. The patient does cry out in pain with any touch or movement of her body. She developed lethargy and mental status changes and was transferred to [facility] emergency center for further evaluation. She was afebrile, heart rate 91, blood pressure initially 83/51, pulse ox 97% on 4 L nasal cannula. EKG atrial fibrillation rate of 88. WBC 9.7, hemoglobin 9.6, platelet count 234. Electrolytes within normal limits, BUN 111, creatinine 5.89, calcium 7.9, phosphorus 8, magnesium 2.4. AST 84, ALT 85, alkaline phosphatase 123. Ammonia level less than 9. Troponins 0.072, 0.042, 0.039. TSH 19.1, free T4 2 0.45. Urinalysis cloudy, blood moderate, leukoesterase large, RBCs 13, the PVCs greater than 182, WBC clumps many. Initial blood sugar 63 status post 1 amp of D50. CAT scan of the brain was negative. Chest x-ray revealed increased density over the right hemithorax and volume loss consistent with interstitial infiltrate and atelectasis appears new. No obvious heart failure. Stable cardiomegaly. Patient was started on Levaquin IV, Zosyn, IV fluids and admitted to the cardiac stepdown unit. Patient is currently waiting in the ER for a bed. Consults in place with nephrology, neurology and cardiology. The patient has undergone hemodialysis this morning. 10/26: Patient's mental status is improved today from yesterday. She did have hemodialysis yesterday and is rescheduled for today. She states she did not have a good night and did not sleep well. Patient is refusing to eat stating that she doesn't want to eat. Patient did have a blister on her left buttocks that opened yesterday. Please see nursing documentation and pictures for detail. Wound care team consult will be added. Patient has been afebrile, heart rate 110, blood pressure 90/54, pulse ox 95% on 3 L nasal cannula. Repeat blood work reveals hemoglobin 8.7, BUN 61 creatinine 2.7. Blood sugars running between 117 and 167. Renal ultrasound demonstrates no obvious abnormality. Echocardiogram reveals EF of 55-60%, mild aortic valve sclerosis, mild tricuspid regurgitation, mild to moderate pulmonary hypertension. Patient is followed by nephrology and cardiology. Anticipate patient will be ready for discharge back to [facility] tomorrow if she continues to show improvement. Objective - Vital Signs Vital signs: Vital Signs Temp 98.6 F 10/27/19 04:00 Pulse 88 10/27/19 07:08 Resp 18 10/27/19 04:00 BP 102/54 10/27/19 04:00 Pulse Ox 96 10/27/19 04:00 Intake & Output 10/26/19 10/27/19 10/27/19 18:59 06:59 18:59 Intake Total 240 750 Output Total 2701 400 Balance -2461 350 Weight 77.111 kg 94.5 kg Intake: IV 450 Sodium Chloride 0.9% 1, 450 000 ml @ 75 mls/hr IV . [id number] [facility] Rx#:[id number] Intake, IV Titration 100 Amount Piperacillin-Tazobactam 3 100 .375 gm In Sodium Chloride 0.9% 100 ml @ 25 mls/hr IVPB Q12HR [facility] Rx #:[id number] Oral 240 200 Output: Urine 2700 400 Uretheral (Simms) 400 Stool 1 Other: Voiding Method Indwelling Catheter Indwelling Catheter # Voids 0 0 # Bowel Movements 1 1 1 - Exam Review of Systems Constitutional: No fever, no chills, no night sweats. Reports weakness, fatigue or lethargy. Reports daytime sleepiness. EENT: No headache. No blurred vision or double vision, no loss of vision. No nasal drainage or congestion. No epistaxis. No sore throat. Lungs: No shortness of breath, cough, no sputum production. No wheezing. Cardiovascular: No chest pain, no lower extremity edema. No palpitations. No paroxysmal nocturnal dyspnea. ganNo lightheadedness or dizziness. No syncopal episodes. Abdominal: No abdominal pain. No nausea, vomiting. No diarrhea. No const ipation. Reports loss of appetite. Genitourinary: No dysuria. No urinary retention. Simms catheter in place. Musculoskeletal: Reports myalgias. Reports muscle weakness, reports gait dysfunction, no frequent falls. No back pain. No neck pain. Integumentary: No wounds, no lesions. No rash or pruritus. No unusual bruising. No change in hair or nails. Neurologic: No aphasia. No facial droop. Reports change in mentation. No head injury. No headache. Psychiatric: No depression. No anxiety. No mood swings. Endocrine: Reports abnormal blood sugars. Physical examination Gen: This is a 73-year-old female. Patient is resting in bed. Patient appears to be comfortable and in no acute distress. HEENT: Head is atraumatic, normocephalic. Pupils equal, round. Sclerae is anicteric. NECK: Supple. No JVD. No lymphadenopathy. No thyromegaly. LUNGS: Diminished at the bases with scattered wheezes. No intercostal retractions. HEART: Irregular rate and rhythm. Systolic murmur. air sampling and monitoring is atrial fibrillation. ABDOMEN: Soft. Bowel sounds are present. No masses. No tenderness. Simms catheter draining clear kate urine. EXTREMITIES: Trace bilateral pedal edema. Dorsalis pedis palpable bilaterally. NEUROLOGICAL: Patient is awake, alert and oriented to person and place. Mild confusion. Generalized weakness. No focal neural deficits. - Labs CBC & Chem 7: 10/27/19 06:41 10/27/19 06:41 Labs: Abnormal Lab Results - Last 24 Hours (Table) 10/26/19 10/26/19 10/26/19 Range/Units 06:47 11:34 16:38 RBC (3.80-5.40) m/uL Hgb (11.4-16.0) gm/dL Hct (34.0-46.0) % MCHC (31.0-37.0) g/dL RDW (11.5-15.5) % Carbon Dioxide 20 L (22-30) mmol/L BUN 67 H (7-17) mg/dL Creatinine 3.27 H (0.52-1.04) mg/dL Glucose 109 H (74-99) mg/dL POC Glucose (mg/dL) 145 H 128 H (75-99) mg/dL Calcium 7.8 L (8.4-10.2) mg/dL Phosphorus 5.1 H (2.5-4.5) mg/dL AST 88 H (14-36) U/L ALT 35 H (4-34) U/L Albumin 2.8 L (3.5-5.0) g/dL 10/26/19 10/27/19 10/27/19 Range/Units 20:04 06:17 06:41 RBC 3.35 L (3.80-5.40) m/uL Hgb 8.7 L D (11.4-16.0) gm/dL Hct 28.7 L (34.0-46.0) % MCHC 30.3 L (31.0-37.0) g/dL RDW 21.2 H (11.5-15.5) % Carbon Dioxide (22-30) mmol/L BUN (7-17) mg/dL Creatinine (0.52-1.04) mg/dL Glucose (74-99) mg/dL POC Glucose (mg/dL) 167 H 119 H (75-99) mg/dL Calcium (8.4-10.2) mg/dL Phosphorus (2.5-4.5) mg/dL AST (14-36) U/L ALT (4-34) U/L Albumin (3.5-5.0) g/dL 10/27/19 Range/Units 06:41 RBC (3.80-5.40) m/uL Hgb (11.4-16.0) gm/dL Hct (34.0-46.0) % MCHC (31.0-37.0) g/dL RDW (11.5-15.5) % Carbon Dioxide (22-30) mmol/L BUN 61 H (7-17) mg/dL Creatinine 2.70 H (0.52-1.04) mg/dL Glucose 117 H (74-99) mg/dL POC Glucose (mg/dL) (75-99) mg/dL Calcium 7.3 L (8.4-10.2) mg/dL Phosphorus 4.6 H (2.5-4.5) mg/dL AST 70 H (14-36) U/L ALT (4-34) U/L Albumin 2.6 L (3.5-5.0) g/dL Microbiology - Last 24 Hours (Table) 10/25/19 19:00 Urine Culture - Preliminary Urine,Voided Gram Neg Bacilli 10/25/19 18:33 Blood Culture - Preliminary Blood No Growth after 24 hours Assessment and Plan Plan: 1. Metabolic encephalopathy secondary to a combination of acute kidney injury and uremia, possible aspiration pneumonia, UTI and sepsis, hypoglycemia, narcotic use. Treat underlying causes. Neurology consult pending. 2. Acute kidney injury. Patient is scheduled for hemodialysis today. Nephrology is on consult. 3. Possible aspiration pneumonia. Patient has received Levaquin and Zosyn. DuoNeb treatments scheduled 3 times daily and as needed. Speech therapy evaluation. 4. Urinary tract infection and sepsis. Continue IV antibiotics. Urine culture in process with gram-negative bacilli. Patient was treated with Rocephin and Cefdinir at [facility]. 5. Hypoglycemia. Patient is normally scheduled insulin will be discontinued. Continue NovoLog scale only. 6. Chronic pain with narcotic use. Patient had improvement of her mental status following Narcan. Tramadol will be decreased to 25 mg 4 times daily as needed only. 7. Elevated troponin, rule out non-ST elevated myocardial infarction. Cardiology consult. Continue aspirin 81 mg daily, atorvastatin 80 mg at bedtime, Imdur 30 mg daily. 8. Paroxysmal atrial fibrillation, not on anticoagulation due to anemia status post permanent pacemaker. Continue Lopressor 25 mg twice daily. 9. Coronary artery disease status post triple bypass in 2000. 10. Moderate to severe pulmonary hypertension, moderate pulmonary regurgitation. 11. Chronic diastolic heart failure. Continue Bumex. Continue dialysis. 12. Diabetes mellitus type 2, uncontrolled with hypoglycemia. Hold scheduled insulin. Continue NovoLog scale only. 13. Hypertension. Continue Lopressor. 14. Hyperlipidemia. Continue atorvastatin. 15. Chronic kidney disease stage III. 16. Hypothyroidism. Decrease levothyroxine to 100 g daily. 17. Chronic back pain and neuropathy. Continue Lyrica, baclofen, tramadol at reduced dose. 18. Anemia of chronic disease. Continue ferrous sulfate. 19. Chronic thrombocytopenia, stable. 20. Possible early vascular dementia. 21. Recurrent depression. Continue Cymbalta 30 mg twice daily. 22. Remote history of tobacco use and dependence. 23. COVID-19 infection not present as of September 30 admission. Testing in process for this admission. Discharge plan: Return to [facility] possibly on . Impression and plan of care have been directed as dictated by the signing physician. Mary Borrego nurse practitioner acting as scribe for signing physician.
[2019-10-27 12:07] LABS: Glucose,Whole Blood 187 mg/dL (75-99)
--- NOTE | 2019-10-27 13:02 | P.CONS ---
History of Present Illness - Reason for Consult Consult date: 10/27/19 Wound care - History of Present Illness This is a 73-year-old patient to has a nonhealing ulceration to the left buttocks. Patient states that the ulceration has been there for about 4 weeks. She does not know she started. Initially the ulceration began as a blister. It has since opened revealing a nonhealing ulceration Limited to skin breakdown. Patient is a poor historian and relatively confused during conversation. Past medical history significant for atrial fibrillation, coronary artery disease, heart failure, diabetes mellitus, deep vein thrombosis, hyperlipidemia, hypertension, renal disease, neuropathy, lupus, and thyroid disorder. Patient utilizes a cane. Patient is a former smoker. Patient resides at [facility]. Review of Systems Review Of Systems: Constitutional: No fever, no chills, no night sweats. No weight change. No weakness, fatigue or lethargy. No daytime sleepiness. Integumentary:reports wounds, no lesions. No rash or pruritus. No unusual bruising. No change in hair or nails. Past Medical History Past Medical History: Atrial Fibrillation, Coronary Artery Disease (CAD), Heart Failure, Diabetes Mellitus, Deep Vein Thrombosis (DVT), Hyperlipidemia, Hypertension, Renal Disease, Thyroid Disorder Additional Past Medical History / Comment(s): neuropathy,lupus, back pain, BACK WOUND-Healed, USES CANE , CATARACT bilat. 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 triple bypass 2000, CATARACT bilat EYE 11/2016, LUE dialysis port. 5 back sx. pt had 2 ablations in OR for afib- unsuccessful. left arm fistula. Past Anesthesia/Blood Transfusion Reactions: No Reported Reaction Additional Past Anesthesia/Blood Transfusion Reaction / Comm: CLAUSTROPHOBIA. HAD A BLOOD TRANSFUSION 1968-NO REACTION. Type of Cardiac Device: Permanent Pacemaker Device Placement Date:: january 2018 Past Psychological History: No Psychological Hx Reported Smoking Status: Former smoker Past Alcohol Use History: None Reported Additional Past Alcohol Use History / Comment(s): Patient's or smoking at age 16 and quit in 2000 smoking 3 packs per day. She is single. Past Drug Use History: None Reported - Past Family History Father Family Medical History: Cancer Additional Family Medical History / Comment(s): prostate cancer Mother Family Medical History: Cancer, Congestive Heart Failure (CHF), Diabetes Mellitus, Hyperlipidemia, Hypertension, Osteoarthritis (OA) Additional Family Medical History / Comment(s): colon cancer Brother(s) Family Medical History: Coronary Artery Disease (CAD), Deep Vein Thrombosis (DVT) Additional Family Medical History / Comment(s): back surgery Sister(s) Family Medical History: Hyperlipidemia Additional Family Medical History / Comment(s): thyroid cancer Medications and Allergies Home Medications Medication Instructions Recorded Confirmed Type Levothyroxine Sodium [Synthroid] 125 mcg PO DAILY@00 11/27/15 10/25/19 History Insulin NPL/Insulin Lispro 10 unit SQ TID-W/MEALS 12/03/16 10/25/19 History [humaLOG MIX 75-25 VIAL] Aspirin EC [Ecotrin Low Dose] 81 mg PO DAILY@89909/09/18 10/25/19 History Losartan [Cozaar] 50 mg PO DAILY@89909/09/18 10/25/19 History Nitroglycerin Sl Tabs [Nitrostat] 0.4 mg SUBLINGUAL Q5M PRN #50 tab 01/27/19 10/25/19 Rx Pantoprazole Sodium [Protonix] 40 mg PO BID@0900,209905/08/19 10/25/19 History Baclofen 10 mg PO BID PRN #10 09/05/19 10/25/19 Rx Lidocaine 5% Patch [Lidoderm 5% 1 patch TOPICAL DAILY #30 patch 10/08/19 10/25/19 Rx Patch] Acetaminophen Tab [Tylenol] 650 mg PO Q4H PRN 10/25/19 10/25/19 History Atorvastatin [Lipitor] 80 mg PO HS@209910/25/19 10/25/19 History Bumetanide [BUMEX] 2 mg PO BID@0600,1400 10/25/19 10/25/19 History Cefdinir 300 mg PO BID@0900,209910/25/19 10/25/19 History DULoxetine HCL [Cymbalta] 30 mg PO BID@0900,209910/25/19 10/25/19 History Ferrous Sulfate [Iron] 325 mg PO TID@0900,1300,2100 10/25/19 10/25/19 History Isosorbide Mononitrate ER [Imdur] 30 mg PO DAILY@0900 10/25/19 10/25/19 History Metoprolol Tartrate [Lopressor] 25 mg PO BID@0900,209910/25/19 10/25/19 History Pregabalin [Lyrica] 75 mg PO HS@209910/25/19 10/25/19 History cefTRIAXone [Rocephin] 1 gm IM ONCE 10/25/19 10/25/19 History traMADol HCL [Ultram] 50 mg PO BID PRN 10/25/19 10/25/19 History Allergies Allergy/AdvReac Type Severity Reaction Status Date / Time No Known Allergies Allergy Verified 10/25/19 18:48 Physical Exam Vitals: Vital Signs Temp Pulse Pulse Resp BP Pulse Ox 10/27/19 12:00 98.1 F 96 18 98/62 96 10/27/19 11:16 112 H 10/27/19 11:08 108 H 10/27/19 08:00 97.6 F 110 H 18 98/54 95 10/27/19 07:08 88 10/27/19 06:55 88 10/27/19 04:00 98.6 F 98 16 102/54 96 10/27/19 00:00 98.5 F 98 17 113/51 96 10/26/19 20:21 89 10/26/19 20:09 74 10/26/19 20:00 98.2 F 104 H 18 99/53 99 10/26/19 17:26 95.9 F L 74 14 112/58 10/26/19 16:00 97.9 F 93 16 95/48 94 L Intake and Output 10/26/19 10/27/19 10/27/19 22:59 06:59 14:59 Intake Total 750 300 Output Total 200 400 2 Balance -200 350 298 Intake: IV 450 300 Sodium Chloride 0.9% 1, 450 300 000 ml @ 75 mls/hr IV . [id number] [facility] Rx#:[id number] Intake, IV Titration 100 Amount Piperacillin-Tazobactam 3 100 .375 gm In Sodium Chloride 0.9% 100 ml @ 25 mls/hr IVPB Q12HR [facility] Rx #:[id number] Oral 200 Output: Urine 200 400 Uretheral (Simms) 400 Stool 2 Other: Voiding Method Indwelling Catheter Indwelling Catheter Indwelling Catheter # Voids 0 0 # Bowel Movements 1 1 Weight 94.5 kg Physical exam: General Appearance: Alert, cooperative, no distress, appears stated age. Skin: Left buttocks ulceration Limited to skin breakdown measuring approximately 15 x 7 x 0.1 cm. Wound edges attached the wound bed. Granulation seen throughout. Ecchymosis noted to the periwound. No adherent Slough or necrotic tissue noted. all other Skin color, texture, tugor normal, no rashes or lesions. Neurologic: Alert oriented x3 Results CBC & Chem 7: 10/27/19 06:41 10/27/19 06:41 Labs: Abnormal Lab Results - Last 24 Hours (Table) 10/26/19 10/26/19 10/27/19 Range/Units 16:38 20:04 06:17 RBC (3.80-5.40) m/uL Hgb (11.4-16.0) gm/dL Hct (34.0-46.0) % MCHC (31.0-37.0) g/dL RDW (11.5-15.5) % Lymphocytes # (1.0-4.8) k/uL BUN (7-17) mg/dL Creatinine (0.52-1.04) mg/dL Glucose (74-99) mg/dL POC Glucose (mg/dL) 128 H 167 H 119 H (75-99) mg/dL Calcium (8.4-10.2) mg/dL Phosphorus (2.5-4.5) mg/dL AST (14-36) U/L Albumin (3.5-5.0) g/dL 10/27/19 10/27/19 10/27/19 Range/Units 06:41 06:41 12:03 RBC 3.35 L (3.80-5.40) m/uL Hgb 8.7 L D (11.4-16.0) gm/dL Hct 28.7 L (34.0-46.0) % MCHC 30.3 L (31.0-37.0) g/dL RDW 21.2 H (11.5-15.5) % Lymphocytes # 0.9 L (1.0-4.8) k/uL BUN 61 H (7-17) mg/dL Creatinine 2.70 H (0.52-1.04) mg/dL Glucose 117 H (74-99) mg/dL POC Glucose (mg/dL) 187 H (75-99) mg/dL Calcium 7.3 L (8.4-10.2) mg/dL Phosphorus 4.6 H (2.5-4.5) mg/dL AST 70 H (14-36) U/L Albumin 2.6 L (3.5-5.0) g/dL Microbiology - Last 24 Hours (Table) 10/25/19 19:00 Urine Culture - Preliminary Urine,Voided Gram Neg Bacilli 10/25/19 18:33 Blood Culture - Preliminary Blood No Growth after 24 hours Assessment and Plan (1) Diabetes mellitus with skin ulcer Current Visit: Yes Status: Acute Code(s): E11.622 - TYPE 2 DIABETES MELLITUS WITH OTHER SKIN ULCER; L98.499 - NON-PRESSURE CHRONIC ULCER OF SKIN OF SITES W UNSP SEVERITY SNOMED Code(s): 32403270 (2) Non-healing ulcer of buttock, limited to breakdown of skin Current Visit: Yes Status: Acute Code(s): L98.411 - NON-PRESSURE CHRONIC ULCER OF BUTTOCK LIMITED TO BRKDWN SKIN SNOMED Code(s): 117096454 Plan: Apply triad and foam border guards change daily. Turn patient every 2 hours. Review of rhythm for surfaces. When patient is sitting utilize a waffle cushi on. Patient to continue wound treatment on her return to [facility]. Thank you kindly for the consultation. Any questions was contacted wound care center DNP note has been reviewed and discussed with Dr. Puckett and the impression and plan of care has been directed as dictated.
--- NOTE | 2019-10-27 14:15 | P.PN ---
Subjective Progress Note Date: 10/27/19 This is a pleasant 73-year-old female patient with past medical history is CAD, status post bypass surgery in 2000, permanent pacemaker implantation, chronic persistent atrial fibrillation status post ablation not on long-term anticoagulation, renal failure requiring hemodialysis, hypertension, d iabetes mellitus and hypothyroidism. Cells in the office with Dr. Barksdale. We have been asked to see the patient in consultation for elevated troponins. She presented to the emergency department with her from an extended care facility secondary to hypotension and elevated creatinine along with altered mental status. Upon examination patient is resting comfortably in bed. She seems more alert today and answering most questions appropriately. She does complain of some dyspnea on exertion. Echocardiogram with Doppler done yesterday showed a normal LV systolic function with an ejection fraction between 55-60%, mild aortic valve sclerosis, mild tricuspid regurgitation and mild to moderate pu lmonary hypertension with an RVSP of 47 mmHg. Labs today showed a hemoglobin of 8.7 down from 10.2, improved BUN and creatinine of 61 and 2.7. Vital signs are relatively stable with mild hypotension. Objective - Vital Signs Vital signs: Vital Signs Temp 98.1 F 10/27/19 12:00 Pulse 96 10/27/19 12:00 Resp 18 10/27/19 12:00 BP 98/62 10/27/19 12:00 Pulse Ox 96 10/27/19 12:00 Intake & Output 10/26/19 10/27/19 10/27/19 18:59 06:59 18:59 Intake Total 240 750 300 Output Total 2701 400 2 Balance -2461 350 298 Weight 77.111 kg 94.5 kg Intake: IV 450 300 Sodium Chloride 0.9% 1, 450 300 000 ml @ 75 mls/hr IV . [id number] [facility] Rx#:[id number] Intake, IV Titration 100 Amount Piperacillin-Tazobactam 3 100 .375 gm In Sodium Chloride 0.9% 100 ml @ 25 mls/hr IVPB Q12HR [facility] Rx #:[id number] Oral 240 200 Output: Urine 2700 400 Uretheral (Simms) 400 Stool 1 2 Other: Voiding Method Indwelling Catheter Indwelling Catheter Indwelling Catheter # Voids 0 0 # Bowel Movements 1 1 1 - Exam PHYSICAL EXAMINATION: HEENT: Head is atraumatic, normocephalic. Pupils equal, round. Neck is supple. There is no elevated jugular venous pressure. HEART EXAMINATION: Heart sounds irregular irregular, S1 and S2 with a systolic ejection murmur at the base. CHEST EXAMINATION: Lungs are clear to auscultation. No chest wall tenderness is noted on palpation or with deep breathing. ABDOMEN: Soft, nontender. Bowel sounds are heard. No organomegaly noted. EXTREMITIES: 2+ peripheral pulses with no evidence of peripheral edema and no calf tenderness noted. NEUROLOGIC patient is awake, alert and oriented x2. . - Labs CBC & Chem 7: 10/27/19 06:41 10/27/19 06:41 Labs: Abnormal Lab Results - Last 24 Hours (Table) 10/26/19 10/26/19 10/27/19 Range/Units 16:38 20:04 06:17 RBC (3.80-5.40) m/uL Hgb (11.4-16.0) gm/dL Hct (34.0-46.0) % MCHC (31.0-37.0) g/dL RDW (11.5-15.5) % Lymphocytes # (1.0-4.8) k/uL BUN (7-17) mg/dL Creatinine (0.52-1.04) mg/dL Glucose (74-99) mg/dL POC Glucose (mg/dL) 128 H 167 H 119 H (75-99) mg/dL Calcium (8.4-10.2) mg/dL Phosphorus (2.5-4.5) mg/dL AST (14-36) U/L Albumin (3.5-5.0) g/dL 10/27/19 10/27/19 10/27/19 Range/Units 06:41 06:41 12:03 RBC 3.35 L (3.80-5.40) m/uL Hgb 8.7 L D (11.4-16.0) gm/dL Hct 28.7 L (34.0-46.0) % MCHC 30.3 L (31.0-37.0) g/dL RDW 21.2 H (11.5-15.5) % Lymphocytes # 0.9 L (1.0-4.8) k/uL BUN 61 H (7-17) mg/dL Creatinine 2.70 H (0.52-1.04) mg/dL Glucose 117 H (74-99) mg/dL POC Glucose (mg/dL) 187 H (75-99) mg/dL Calcium 7.3 L (8.4-10.2) mg/dL Phosphorus 4.6 H (2.5-4.5) mg/dL AST 70 H (14-36) U/L Albumin 2.6 L (3.5-5.0) g/dL Microbiology - Last 24 Hours (Table) 10/25/19 19:00 Urine Culture - Preliminary Urine,Voided Gram Neg Bacilli 10/25/19 18:33 Blood Culture - Preliminary Blood No Growth after 24 hours Assessment and Plan Assessment: #1 altered mental status #2 acute on chronic renal failure, status post dialysis, improved #3 troponin leak of unclear etiology, could be secondary to renal function abnormalities #4 CAD status post bypass grafting many years ago #5 chronic persistent atrial fibrillation #6 permanent pacemaker implantation #7 pulmonary hypertension #8 diabetes mellitus #9 hypertension #10 dyslipidemia Plan: From cardiology perspective, continue to hold losartan and Bumex due to hypotension. Continue Lopressor. Continue to monitor intake and output, daily weights and renal function. We will continue to follow the patient and write further recommendations accordingly. ARTIFICIAL INTELLIGENCE SPECIALIST note has been reviewed, I agree with a documented findings and plan of care. Patient was seen and examined.
[2019-10-27 14:21] VITALS: BMI 33.6
--- NOTE | 2019-10-27 14:57 | P.PN ---
Subjective Patient is seen in follow-up for acute kidney injury on chronic kidney disease. Renal function is improving. Nonoliguric. Maintain on IV fluids. Patient improved. Currently awake and alert. Complains of loose bowel movements. No vomiting. Vital signs are stable. General: The patient appeared well nourished and normally developed. HEENT: Head exam is unremarkable. Neck is without jugular venous distension. LUNGS: Lungs are clear to auscultation and percussion. Breath sounds decreased. HEART: Rate and Rhythm are regular. ABDOMEN: Soft, nontender. EXTREMITITES: No edema. Objective - Vital Signs Vital signs: Vital Signs Temp 98.1 F 10/27/19 12:00 Pulse 96 10/27/19 12:00 Resp 18 10/27/19 12:00 BP 98/62 10/27/19 12:00 Pulse Ox 96 10/27/19 12:00 Intake & Output 10/26/19 10/27/19 10/27/19 18:59 06:59 18:59 Intake Total 240 750 300 Output Total 2701 400 2 Balance -2461 350 298 Weight 77.111 kg 94.5 kg 94.5 kg Intake: IV 450 300 Sodium Chloride 0.9% 1, 450 300 000 ml @ 75 mls/hr IV . [id number] [facility] Rx#:[id number] Intake, IV Titration 100 Amount Piperacillin-Tazobactam 3 100 .375 gm In Sodium Chloride 0.9% 100 ml @ 25 mls/hr IVPB Q12HR [facility] Rx #:[id number] Oral 240 200 Output: Urine 2700 400 Uretheral (Simms) 400 Stool 1 2 Other: Voiding Method Indwelling Catheter Indwelling Catheter Indwelling Catheter # Voids 0 0 # Bowel Movements 1 1 1 - Labs CBC & Chem 7: 10/27/19 06:41 10/27/19 06:41 Labs: Abnormal Lab Results - Last 24 Hours (Table) 10/26/19 10/26/19 10/27/19 Range/Units 16:38 20:04 06:17 RBC (3.80-5.40) m/uL Hgb (11.4-16.0) gm/dL Hct (34.0-46.0) % MCHC (31.0-37.0) g/dL RDW (11.5-15.5) % Lymphocytes # (1.0-4.8) k/uL BUN (7-17) mg/dL Creatinine (0.52-1.04) mg/dL Glucose (74-99) mg/dL POC Glucose (mg/dL) 128 H 167 H 119 H (75-99) mg/dL Calcium (8.4-10.2) mg/dL Phosphorus (2.5-4.5) mg/dL AST (14-36) U/L Albumin (3.5-5.0) g/dL 10/27/19 10/27/19 10/27/19 Range/Units 06:41 06:41 12:03 RBC 3.35 L (3.80-5.40) m/uL Hgb 8.7 L D (11.4-16.0) gm/dL Hct 28.7 L (34.0-46.0) % MCHC 30.3 L (31.0-37.0) g/dL RDW 21.2 H (11.5-15.5) % Lymphocytes # 0.9 L (1.0-4.8) k/uL BUN 61 H (7-17) mg/dL Creatinine 2.70 H (0.52-1.04) mg/dL Glucose 117 H (74-99) mg/dL POC Glucose (mg/dL) 187 H (75-99) mg/dL Calcium 7.3 L (8.4-10.2) mg/dL Phosphorus 4.6 H (2.5-4.5) mg/dL AST 70 H (14-36) U/L Albumin 2.6 L (3.5-5.0) g/dL Microbiology - Last 24 Hours (Table) 10/25/19 19:00 Urine Culture - Preliminary Urine,Voided Gram Neg Bacilli 10/25/19 18:33 Blood Culture - Preliminary Blood No Growth after 24 hours Assessment and Plan Plan: Assessment: 1. Acute kidney injury secondary to ATN secondary to hypotension. Creatinine 5.8 and on admission. BUN 111. Status post hemodialysis on October 24 due to concern for uremia. Mentation improved. Creatinine 2.7 today. No hydronephrosis noted on kidney ultrasound. 2. Chronic kidney disease stage III with baseline creatinine in the range of 1.3-1.5. 3. Altered mental status. Uremia versus sepsis. Status post hemodialysis without much improvement. CT of the head revealed no acute changes. 4. UTI maintained on antibiotics. Urine culture positive for gram-negative bacilli. 5. Possible pneumonia. 6. Insulin-dependent diabetes mellitus. 7. Chronic diastolic CHF with ejection fraction of 55-60%. 8. Hyperphosphatemia secondary to acute kidney injury. Improved postdialysis. 9. Anemia of chronic kidney disease. Rule out iron deficiency. Plan: Maintain normal saline at 75 mL an hour. Hold off on hemodialysis. Continue to monitor renal function and urine output. Check iron studies.
[2019-10-27] MEDS: ISOSORBIDE MONONITRATE ER 30 MG TAB.ER.24H PO SCH (15:49)
[2019-10-27] MEDS: METOPROLOL TARTRATE 25 MG TAB PO SCH ×2 (15:50→20:44)
[2019-10-27] MEDS: HYDROPHILIC CREAM 180 GM TUBE TOPICAL SCH (15:50)
[2019-10-27 16:38] LABS: Glucose,Whole Blood 188 mg/dL (75-99)
--- NOTE | 2019-10-27 17:26 | CONS ---
CONSULTATION DATE OF DICTATION: 10/27/2019. REFERRING PHYSICIAN: Dr. Borrego HISTORY OF PRESENT ILLNESS: Thank you for allowing me to evaluate Tsering Chan who is a 73-year-old right- handed female who presented to [facility] on 10/25/2019 from a half-way for evaluation of altered mental status. The patient apparently had outpatient labs completed on the day of presentation with significant results including a BUN of 105 and creatinine of 5.8, elevated TSH of 19.1, and elevated transaminase levels with ALT of 40 and AST of 85. When EMS arrived on scene, the patient was hypotensive with a blood pressure of 89/55, and upon presentation to [facility], was hypoglycemic with blood sugar of 63. During this hospitalization, the patient has undergone dialysis, although now BUN and creatinine are improving and dialysis is on hold. The patient does have a history of recurrent toxo-metabolic encephalopathy and has had previous hospitalizations with acute kidney injury and required dialysis, as a result, the patient has a left upper extremity fistula in place. The patient currently denies headache. She denies previous history of stroke or seizure. She is primarily complaining at this time that her "rear end is hurting" and she does have a left buttock skin ulcer. The patient was previously hospitalized at [facility] between 09/30 and 10/08/2019 and according to the discharge summary, during the hospitalization, the patient received a dose of opiates and became obtunded for several days. Dr. Renner of Neurology evaluated the patient at that time and workup included a CT of the brain which demonstrated no acute pathology and EEG from 10/08/2019, which was read as normal study. The patient also had an EEG read by Dr. Garcia on 08/26/2019 for mental status changes, which demonstrated a moderate diffuse encephalopathy, but no epileptiform discharges were noted. According to the medical record, the patient has a history of paroxysmal atrial fibrillation and has not been maintained on anticoagulation due to history of anemia. ALLERGIES: No known drug allergies. HOME MEDICATIONS: Tylenol, Ultram, baclofen, insulin. Ferrous sulfate, Protonix, Lopressor, Cozaar, Cymbalta, Cefdinir, Synthroid, Bumex, Lyrica 75 mg q.h.s., lidocaine patch, Lipitor, Imdur, and aspirin 81 mg daily. PAST MEDICAL HISTORY: Hypertension, diabetes mellitus, hyperlipidemia, GERD, paroxysmal atrial fibrillation, coronary artery disease, chronic kidney disease (requiring dialysis in the past), morbid obesity, depression, CHF, osteoarthritis, hypothyroidism status post thyroidectomy (patient reports a history of goiter), moderate to severe pulmonary hypertension, peripheral polyneuropathy, chronic low back pain, reported lupus and history of opiate dependence. PAST SURGICAL HISTORY: Pacemaker placement, left upper extremity fistula, coronary artery bypass surgery, appendectomy, cholecystectomy, 5 previous back surgeries, 4 breast biopsies with benign histology, thyroidectomy, and bilateral cataract extraction. The patient did provide good detail during this evaluation regarding prior surgeries including the history of breast surgeries and details regarding her thyroidectomy, clearly demonstrating improvement in her presenting symptoms. SOCIAL HISTORY: The patient quit smoking and denied alcohol consumption. She is with 4 living children and resides in a half-way. She states she has been ambulating with a four- wheel walker. FAMILY HISTORY: The patient's father had prostate cancer. Mother had hypertension, and diabetes mellitus. REVIEW OF SYSTEMS: Fourteen systems are reviewed and no additional points identified. The review of systems documented in history and physical. PHYSICAL EXAM: Upon arrival to the patient's room, she was lying in bed, she was initially moaning, although when I introduced myself, she did make eye contact and began to communicate with the examiner. The patient remains alert through the course of my evaluation and did not require additional stimulation to do so. She was receptive to the examiner, a fair historian. Affect is flat. She is obese, deconditioned and appears older than stated age. VITAL SIGNS: Blood pressure is 98/62 with a pulse of 96, respiratory rate 18, temperature 98.1, weight is 94.5 kg on a 5 foot 6 inch frame. SKIN AND EXTREMITIES: Arthritic changes are noted in the hands. The patient has mild distal lower extremity edema. There is a left upper extremity fistula with palpable thrill. HEAD AND NECK no signs of trauma. Neck is supple without meningeal signs. Arteries are nontender and without bruits. HEART: Regular rate and rhythm. Higher cortical function: Mental status: Patient was alert, oriented to self. She knew she was in [facility]. She knew the year and month. She was able to name the current President. Speech was fluent and she follows commands readily. There was no right/left disorientation, finger-nose extinction to double simultaneous stimulation or dysarthria. She was able to name repeat and read. Cranial nerves 2 thru 12, pupils are postsurgical and reactive to light symmetrically. No afferent pupillary defect. Visual wallis are intact to confrontation. Three, 4, 6, there is subtle left-sided ptosis, which is within the physiologic range of normal. Extraocular movements were full. No nystagmus. Five, pinprick light touch intact in all 3 divisions. Motor 5 intact. VII: No facial asymmetry or weakness. VIII acuity intact to finger rub. IX, X: Palate sophia in midline, the patient is edentulous. 11 Trapezius strength intact. 12 tongue protruded midline without fasciculation, or atrophy. MOTOR EXAMINATION: The patient was hesitant to move the extremities related to diffuse pain, particularly in the buttock region. Within these constraints, there is no clear pronator drift. There was normal bulk and tone noted in all major muscle groups with myoclonus noted in the upper extremities. Strength is at least 4 to 4+ or 5 in the bilateral upper extremities. In the lower extremities, the patient would slightly flex at the hips and knees but readily wiggled the toes and ankle plantar/dorsiflexed both feet with strength of at least 4+ over 5. Sensory intact to pinprick and light touch in all extremities. Reflexes right side 1st biceps 1, 1, brachioradialis 0, 0, triceps 0, 0, patella 0, 0; ankle 0, 0. Plantar responses flexor bilaterally. Roblero's is absent. Coordination: [id number] movements are intact. The patient would not perform [id number] secondary to buttock pain. Rapid alternating movements are symmetric with finger and foot tapping. DIAGNOSTIC TESTING: Patient had a CT scan of brain completed without contrast in emergency room, which demonstrated no acute pathology. LAB WORK: Demonstrates a white blood count of 8.4, hemoglobin 10.2, platelet count 210. INR 1.1. Sodium 139, potassium 4.2, initial BUN and creatinine were 111 and 5.89. This morning were 61 and 2.7 and prior to this hospitalization on 10/06/2019, BUN and creatinine were 32 and 1.47 respectively. Presenting blood sugar 63, ALT 35, AST 84, ammonia less than 9. Troponin was as high as 0.072. Urinalysis demonstrated large leuk esterase, negative nitrate, greater than 182 WBCs, 13 RBCs, many WBC clumps, and urine culture demonstrated gram negative bacilli. IMPRESSION: 1. Encephalopathy with myoclonus secondary to acute kidney injury, gram-negative bacilli urinary tract infection and hypoglycemia. The patient has been dialyzed during this hospitalization as well as treated for the urinary tract infection and has become more alert, following commands and is currently oriented. The patient has a history of recurrent encephalopathy. 2. Hypothyroidism, status post thyroidectomy with elevated TSH of 19.1 on outpatient basis just prior to this hospitalization. 3. Chronic low back pain, status post lumbar laminectomy x5. 4. History of opiate dependence. 5. Elevated troponin, deferred to Cardiology. 6. Anemia. 7. Left buttock skin ulcer. 8. Medical problems including hypertension, diabetes mellitus, hyperlipidemia, GERD, paroxysmal atrial fibrillation, coronary artery disease, chronic kidney disease (requiring hemodialysis in the past), moderate to severe pulmonary hypertension, peripheral polyneuropathy, chronic low back pain, reported lupus, morbid obesity with deconditioning, depression, CHF, osteoarthritis, and sick sinus syndrome status post pacemaker placement. RECOMMENDATION: 1. I discussed my impression and plan with the patient and she expressed understanding. Case was also discussed with nursing staff. 2. Treatment of medical issues per primary service. 3. Risk factor modification. On an outpatient basis, the patient is maintained on aspirin and Lipitor. 4. Recent EEGs completed in August and September 2019 demonstrated no epileptiform discharges. 5. Please feel free to contact me if there are further questions from a neurologic standpoint. Thank you for allowing me to participate in the care of your patient. MMODL / IJN: [id number] / HERMAN
[2019-10-27 18:07] LABS: T4, Free (Free Thyroxine) 2.2 ng/dL (0.78-2.19)
[2019-10-27 20:24] VITALS: RESP 18
[2019-10-27 20:38] LABS: Glucose,Whole Blood 191 mg/dL (75-99)
[2019-10-27] MEDS: PREGABALIN 75 MG CAP PO SCH (20:44)
[2019-10-27] MEDS: ATORVASTATIN 80 MG TAB PO SCH (20:45)
[2019-10-27] MEDS ORDERED: LEVOFLOXACIN 500MG-D5W PMX 500 MG in DEXTROSE/WATER 1 100ML.BAG IVPB SCH (21:00)
[2019-10-28] MEDS: SODIUM CHLORIDE 0.9% 1,000 ML IV SCH ×2 (04:45→09:03)
[2019-10-28 06:12] LABS: Glucose,Whole Blood 132 mg/dL (75-99)
[2019-10-28] MEDS: INSULIN ASPART (NovoLOG) 100 UNIT/ML VIAL SQ SCH ×2 (06:19→12:48)
[2019-10-28] MEDS: LEVOTHYROXINE 100 MCG TAB PO SCH (06:19)
[2019-10-28 06:58] LABS: Calcium 7.4 mg/dL (8.4-10.2); Potassium 3.1 mmol/L (3.5-5.1)
[2019-10-28] MEDS: IPRATROPIUM-ALBUTEROL 3 ML NEB INHALATION SCH ×2 (08:11→13:39)
--- NOTE | 2019-10-28 08:40 | P.DS ---
Providers Date of admission: 10/26/19 01:04 Expected date of discharge: 10/28/19 Attending physician: Johnna Swan MD Consults: 10/26/19 01:02 Consult Physician Routine Consulting Provider: Kameron Reyes Consult Reason/Comments: acute on chronic renal failure Do you want consulting provider notified?: Already Contacted 10/26/19 01:04 Consult Physician Routine Consulting Provider: Robbi Leyva Consult Reason/Comments: Altered Mental status Do you want consulting provider notified?: Yes 10/26/19 09:23 Consult Physician Routine Consulting Provider: Pina Luz Consult Reason/Comments: elevated trop Do you want consulting provider notified?: Yes Primary care physician: Kindra Plata [facility] Course: This is a 73-year-old female patient previously of Dr. Hdz, currently is a long-term resident at [facility] under the care of Dr. Plata with past medical history of paroxysmal atrial fibrillation not on anticoagulation due to anemia status post permanent pacemaker, coronary artery disease status post triple bypass in 2000, moderate to severe pulmonary hypertension, moderate pulmonary regurgitation, chronic diastolic heart failure, diabetes mellitus type 2, DVT, hypertension, hyperlipidemia, chronic kidney disease with previous history of acute kidney injury requiring hemodialysis in April 2019 and previous dialysis in 2017 for 6 months for acute kidney injury and currently off dialysis. Patient does have a fistula in the left arm. Also history of hypothyroidism, neuropathy, chronic back pain, lupus, chronic anemia and chronic thrombocytopenia, remote history of tobacco use. She had a recent hospitalization September 30 through October 07 which time she was treated for anemia status post 2 units packed RBCs and opiate dependence with chronic pain. Patient received 1 dose of opiates was obtunded for several days. There was also history of transaminitis. There apparently is a difficulty with opiate dependence and history of liver failure prohibiting her from taking narcotic medications. Patient was seen by neurologist during hospitalization with recommendations to continue Seroquel for mood regulation and sleep and follow with outpatient neurology for peripheral neuropathy and altered mental status showing early signs of vascular dementia and workup for obstructive sleep apnea was recommended. Patient was also seen by oncology regarding anemia and thrombocytopenia. Patient was stabilized and discharged to [facility]. Patient was recently treated for UTI with Rocephin and Cefdinir. Patient states that she is not good. 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 She started wheezing about 1 hour ago. The patient does cry out in pain with any touch or movement of her body. She developed lethargy and mental status changes and was transferred to [facility] emergency center for further evaluation. She was afebrile, heart rate 91, blood pressure initially 83/51, pulse ox 97% on 4 L nasal cannula. EKG atrial fibrillation rate of 88. WBC 9.7, hemoglobin 9.6, platelet count 234. Electrolytes within normal limits, BUN 111, creatinine 5.89, calcium 7.9, phosphorus 8, magnesium 2.4. AST 84, ALT 85, alkaline phosphatase 123. Ammonia level less than 9. Troponins 0.072, 0.042, 0.039. TSH 19.1, free T4 2 0.45. Urinalysis cloudy, blood moderate, leukoesterase large, RBCs 13, the PVCs greater than 182, WBC clumps many. Initial blood sugar 63 status post 1 amp of D50. CAT scan of the brain was negative. Chest x-ray revealed increased density over the right hemithorax and volume loss consistent with interstitial infiltrate and atelectasis appears new. No obvious heart failure. Stable cardiomegaly. Patient was started on Levaquin IV, Zosyn, IV fluids and admitted to the cardiac stepdown unit. Patient is currently waiting in the ER for a bed. Consults in place with nephrology, neurology and cardiology. The patient has undergone hemodialysis this morning. 10/26: Patient's mental status is improved today from yesterday. She did have hemodialysis yesterday and is rescheduled for today. She states she did not have a good night and did not sleep well. Patient is refusing to eat stating that she doesn't want to eat. Patient did have a blister on her left buttocks that opened yesterday. Please see nursing documentation and pictures for detail. Wound care team consult will be added. Patient has been afebrile, heart rate 110, blood pressure 90/54, pulse ox 95% on 3 L nasal cannula. Repeat blood work reveals hemoglobin 8.7, BUN 61 creatinine 2.7. Blood sugars running between 117 and 167. Renal ultrasound demonstrates no obvious abnormality. Echocardiogram reveals EF of 55-60%, mild aortic valve sclerosis, mild tricuspid regurgitation, mild to moderate pulmonary hypertension. Patient is followed by nephrology and cardiology. Anticipate patient will be ready for discharge back to [facility] tomorrow if she continues to show improvement. 10/27: Patient was seen by neurology, Dr. Leyva regarding cephalopathy due to acute kidney injury and gram-negative bacilli urinary tract infection and hypoglycemia. He recommends treating underlying conditions, continue aspirin and Lipitor. I'll yesterday patient did not require hemodialysis yesterday is it was held by Dr. Reyes. Plan was to continue to monitor renal function and urine output as well as check iron studies. Patient has had good urine output overnight. Urine cultures positive for E. coli susceptible to ceftriaxone. Midline will be requested prior to discharge. Repeat lab work reveals potassium of 3.1, BUN 57 creatinine 2.27. Blood sugars running between 120 - 191. Overall patient's mental status is much improved from admission. She is eating her breakfast this morning and will be resumed on her insulin at the longterm. Thyroid medication was adjusted on this admission as well. Patient has been evaluated by the wound care team for ulcer of the buttocks with recommendations to apply triad and foam border guards change daily and turn patient every 2 hours. When patient is sitting to utilize a waffle cushion. Patient will be discharged back to [facility] once midline is placed and patient is cleared by Dr. Reyes. Discharge diagnoses: 1. Metabolic encephalopathy secondary to a combination of acute kidney injury and uremia, possible aspiration pneumonia, UTI and sepsis, hypoglycemia, narcotic use. 2. Acute kidney injury. 3. Possible aspiration pneumonia. 4. Urinary tract infection and sepsis. 5. Hypoglycemia. 6. Chronic pain with narcotic use. 7. Elevated troponin, rule out non-ST elevated myocardial infarction. 8. Paroxysmal atrial fibrillation, not on anticoagulation due to anemia status post permanent pacemaker. 9. Coronary artery disease status post triple bypass in 2000. 10. Moderate to severe pulmonary hypertension, moderate pulmonary regurgitation. 11. Chronic diastolic heart failure. 12. Diabetes mellitus type 2, uncontrolled with hypoglycemia. 13. Hypertension. 14. Hyperlipidemia. 15. Chronic kidney disease stage III. 16. Hypothyroidism. 17. Chronic back pain and neuropathy. 18. Anemia of chronic disease. 19. Chronic thrombocytopenia, stable. 20. Possible early vascular dementia. 21. Recurrent depression. 22. Remote history of tobacco use and dependence. 23. COVID-19 infection not present as of September 30 admission. Discharge plan: Return to [facility]. Impression and plan of care have been directed as dictated by the signing physician. Mary Borrego nurse practitioner acting as scribe for signing physician. Patient Condition at Discharge: Good Plan - Discharge Summary Discharge Rx Participant: No New Discharge Prescriptions: New Ipratropium-Albuterol Nebulize [Duoneb 0.5 mg-3 mg/3 ml Soln] 3 ml INHALATION RT-TID #0 ml Levothyroxine Sodium [Synthroid] 100 mcg PO DAILY@0630 tab Hydrophilic Cream [Triad Cream] 1 applic TOPICAL DAILY applic Continue Insulin NPL/Insulin Lispro [humaLOG MIX 75-25 VIAL] 10 unit SQ TID-W/MEALS Aspirin EC [Ecotrin Low Dose] 81 mg PO DAILY@0900 Nitroglycerin Sl Tabs [Nitrostat] 0.4 mg SUBLINGUAL Q5M PRN #50 tab PRN Reason: Chest Pain Pantoprazole Sodium [Protonix] 40 mg PO BID@0900,2100 Baclofen 10 mg PO BID PRN #10 PRN Reason: Spasms Lidocaine 5% Patch [Lidoderm 5% Patch] 1 patch TOPICAL DAILY #30 patch Acetaminophen Tab [Tylenol] 650 mg PO Q4H PRN PRN Reason: Pain Ferrous Sulfate [Iron] 325 mg PO TID@0900,1300,2100 Metoprolol Tartrate [Lopressor] 25 mg PO BID@0900,2100 DULoxetine HCL [Cymbalta] 30 mg PO BID@0900,2100 Pregabalin [Lyrica] 75 mg PO HS@2100 Atorvastatin [Lipitor] 80 mg PO HS@2100 Isosorbide Mononitrate ER [Imdur] 30 mg PO DAILY@0900 traMADol HCL [Ultram] 50 mg PO BID PRN #6 tab PRN Reason: Pain Changed Bumetanide [BUMEX] 2 mg PO DAILY #0 cefTRIAXone [Rocephin] 1 gm IVPB DAILY #7 vial Discontinued Levothyroxine Sodium [Synthroid] 125 mcg PO DAILY@0600 Losartan [Cozaar] 50 mg PO DAILY@0900 Cefdinir 300 mg PO BID@0900,2100 Discharge Medication List Insulin NPL/Insulin Lispro [humaLOG MIX 75-25 VIAL] 10 unit SQ TID-W/MEALS 12/03/16 [History] Aspirin EC [Ecotrin Low Dose] 81 mg PO DAILY@0900 09/09/18 [History] Nitroglycerin Sl Tabs [Nitrostat] 0.4 mg SUBLINGUAL Q5M PRN #50 tab 01/27/19 [Rx] Pantoprazole Sodium [Protonix] 40 mg PO BID@0900,209905/08/19 [History] Baclofen 10 mg PO BID PRN #10 09/05/19 [Rx] Lidocaine 5% Patch [Lidoderm 5% Patch] 1 patch TOPICAL DAILY #30 patch 10/08/19 [Rx] Acetaminophen Tab [Tylenol] 650 mg PO Q4H PRN 10/25/19 [History] Atorvastatin [Lipitor] 80 mg PO HS@209910/25/19 [History] DULoxetine HCL [Cymbalta] 30 mg PO BID@0900,209910/25/19 [History] Ferrous Sulfate [Iron] 325 mg PO TID@0900,1300,209910/25/19 [History] Isosorbide Mononitrate ER [Imdur] 30 mg PO DAILY@89910/25/19 [History] Metoprolol Tartrate [Lopressor] 25 mg PO BID@0900,209910/25/19 [History] Pregabalin [Lyrica] 75 mg PO HS@209910/25/19 [History] Bumetanide [BUMEX] 2 mg PO DAILY #0 10/28/19 [Rx] Hydrophilic Cream [Triad Cream] 1 applic TOPICAL DAILY applic 10/28/19 [Rx] Ipratropium-Albuterol Nebulize [Duoneb 0.5 mg-3 mg/3 ml Soln] 3 ml INHALATION RT-TID #0 ml 10/28/19 [Rx] Levothyroxine Sodium [Synthroid] 100 mcg PO DAILY@0630 tab 10/28/19 [Rx] cefTRIAXone [Rocephin] 1 gm IVPB DAILY #7 vial 10/28/19 [Rx] traMADol HCL [Ultram] 50 mg PO BID PRN #6 tab 10/28/19 [Rx] Follow up Appointment(s)/Referral(s): Kindra Plata MD [Primary Care Provider] - 1 Week ([address] [facility]) Activity/Diet/Wound Care/Special Instructions: Apply triad and foam border guards change daily. Turn patient every 2 hours. Review of rhythm for surfaces. When patient is sitting utilize a waffle cushion. Patient to continue wound treatment on her return to [facility]. Discharge Disposition: TRANSFER TO SNF/ECF
[2019-10-28] MEDS: PIPERACILLIN-TAZOBACTAM 3.375 GM in SODIUM CHLORIDE 0.9% 100 ML IVPB SCH (09:00)
[2019-10-28] MEDS: HYDROPHILIC CREAM 180 GM TUBE TOPICAL SCH (09:03)
[2019-10-28] MEDS: DULoxetine HCL 30 MG CAPSULE.DR PO SCH (09:04)
[2019-10-28] MEDS: ASPIRIN 81 MG PO SCH (09:04)
[2019-10-28] MEDS: FERROUS SULFATE 325 MG TAB PO SCH ×2 (09:04→12:48)
[2019-10-28] MEDS: METOPROLOL TARTRATE 25 MG TAB PO SCH (09:04)
[2019-10-28] MEDS: ISOSORBIDE MONONITRATE ER 30 MG TAB.ER.24H PO SCH (09:04)
[2019-10-28] MEDS: HEPARIN SODIUM,PORCINE 5,000 UNIT/ML 1 ML VIAL SQ SCH (09:04)
[2019-10-28] MEDS: LIDOCAINE 5% PATCH TOPICAL SCH (09:05)
[2019-10-28] MEDS: PANTOPRAZOLE 40 MG TABLET PO SCH (09:08)
[2019-10-28] MEDS: traMADol 50 MG TAB PO PRN (10:25)
--- NOTE | 2019-10-28 11:05 | P.PN ---
Subjective Patient is seen in follow-up for acute kidney injury on chronic kidney disease. Renal function is improving. Nonoliguric. Maintain on IV fluids. Patient improved. Currently awake and alert. Complains of loose bowel movements. No vomiting. No major changes overnight. Hemodynamically stable. Vital signs are stable. General: The patient appeared well nourished and normally developed. HEENT: Head exam is unremarkable. Neck is without jugular venous distension. LUNGS: Lungs are clear to auscultation and percussion. Breath sounds decreased. HEART: Rate and Rhythm are regular. ABDOMEN: Soft, nontender. EXTREMITITES: No edema. Objective - Vital Signs Vital signs: Vital Signs Temp 98.3 F 10/28/19 04:00 Pulse 96 10/28/19 08:19 Resp 18 10/28/19 04:00 BP 113/55 10/28/19 04:00 Pulse Ox 97 10/28/19 04:00 Intake & Output 10/27/19 10/28/19 10/28/19 18:59 06:59 18:59 Intake Total 300 950 320 Output Total 478 501 Balance -178 449 320 Weight 94.5 kg 97.5 kg Intake: IV 300 750 Sodium Chloride 0.9% 1, 300 750 000 ml @ 75 mls/hr IV . [id number] [facility] Rx#:[id number] Intake, IV Titration 200 Amount Levofloxacin 500Mg-D5w 100 Pmx 500 mg In Dextrose/ Water 1 100ml.bag @ 100 mls/hr IVPB Q48H [facility] Rx#: [id number] Piperacillin-Tazobactam 3 100 .375 gm In Sodium Chloride 0.9% 100 ml @ 25 mls/hr IVPB Q12HR [facility] Rx #:[id number] Oral 0 320 Output: Urine 475 500 Stool 3 1 Other: Voiding Method Indwelling Catheter Indwelling Catheter # Voids 0 # Bowel Movements 1 3 1 - Labs CBC & Chem 7: 10/27/19 06:41 10/28/19 05:55 Labs: Abnormal Lab Results - Last 24 Hours (Table) 10/27/19 10/27/19 10/27/19 Range/Units 12:03 15:10 16:33 Potassium (3.5-5.1) mmol/L Chloride (98-107) mmol/L BUN (7-17) mg/dL Creatinine (0.52-1.04) mg/dL Glucose (74-99) mg/dL POC Glucose (mg/dL) 187 H 188 H (75-99) mg/dL Calcium (8.4-10.2) mg/dL TSH 9.520 H (0.465-4.680) mIU/L Free T4 2.20 H (0.78-2.19) ng/dL 10/27/19 10/28/19 10/28/19 Range/Units 20:36 05:55 06:11 Potassium 3.1 L (3.5-5.1) mmol/L Chloride 109 H (98-107) mmol/L BUN 57 H (7-17) mg/dL Creatinine 2.27 H (0.52-1.04) mg/dL Glucose 128 H (74-99) mg/dL POC Glucose (mg/dL) 191 H 132 H (75-99) mg/dL Calcium 7.4 L (8.4-10.2) mg/dL TSH (0.465-4.680) mIU/L Free T4 (0.78-2.19) ng/dL Microbiology - Last 24 Hours (Table) 10/25/19 19:00 Urine Culture - Final Urine,Voided Escherichia coli 10/25/19 18:33 Blood Culture - Preliminary Blood No Growth after 48 hours Assessment and Plan Plan: Assessment: 1. Acute kidney injury secondary to ATN secondary to hypotension. Creatinine 5.8 and on admission. BUN 111. Status post hemodialysis on October 24 due to concern for uremia. Mentation improved. Creatinine 2.28 today. No hydronephrosis noted on kidney ultrasound. 2. Chronic kidney disease stage III with baseline creatinine in the range of 1.3-1.5. 3. Altered mental status. Uremia versus sepsis. Status post hemodialysis without much improvement. CT of the head revealed no acute changes. 4. UTI maintained on antibiotics. Urine culture positive for E. coli. 5. Possible pneumonia. 6. Insulin-dependent diabetes mellitus. 7. Chronic diastolic CHF with ejection fraction of 55-60%. 8. Hyperphosphatemia secondary to acute kidney injury. Improved postdialysis. 9. Anemia of chronic kidney disease. Rule out iron deficiency. 10. Hypokalemia from saline diuresis. Plan: Maintain normal saline at 75 mL an hour. Hold off on hemodialysis. Continue to monitor renal function and urine output. Follow-up iron studies. Replace potassium. Anticipate discharge soon. Follow up outpatient in 1-2 weeks. Repeat BMP and magnesium level 2-3 days postdischarge.
[2019-10-28 11:52] LABS: Ferritin 158.6 ng/mL (10.0-291.0)
[2019-10-28 11:56] LABS: Glucose,Whole Blood 212 mg/dL (75-99)
[2019-10-28 12:01] LABS: % Iron Saturation 13.14 (12.00-45.00)
--- NOTE | 2019-10-28 12:43 | P.PN ---
Subjective Progress Note Date: 10/28/19 This is a pleasant 73-year-old female patient with past medical history is CAD, status post bypass surgery in 2000, permanent pacemaker implantation, chronic persistent atrial fibrillation status post ablation not on long-term anticoagulation which according to the patient is due to history of bl eeding, renal failure requiring hemodialysis, hypertension, diabetes mellitus and hypothyroidism. Cells in the office with Dr. Barksdale. We have been asked to see the patient in consultation for elevated troponins. She presented to the emergency department with her from an extended care facility secondary to hypotension and elevated creatinine along with altered mental status. Upon examination patient is resting comfortably in bed. She seems more alert today and answering most questions appropriately. She does complain of some dyspnea on exertion. Echocardiogram with Doppler done yesterday showed a normal LV systolic function with an ejection fraction between 55-60%, mild aortic valve sc lerosis, mild tricuspid regurgitation and mild to moderate pulmonary hypertension with an RVSP of 47 mmHg. Labs today showed a hemoglobin of 8.7 down from 10.2, improved BUN and creatinine of 61 and 2.7. Vital signs are relatively stable with mild hypotension. 10/28/2019 Patient was seen and examined resting comfortably in bed. She is overall feeling somewhat better compared to yesterday. Blood pressure is maintaining above 100 mmHg systolic. Losartan Bumex remain on hold. Labs showed a he moglobin of 8.7, BUN 57, creatinine 2.27, potassium 3.1. Objective - Vital Signs Vital signs: Vital Signs Temp 98.2 F 10/28/19 08:20 Pulse 79 10/28/19 08:20 Resp 18 10/28/19 08:20 BP 111/56 10/28/19 08:20 Pulse Ox 96 10/28/19 08:20 Intake & Output 10/27/19 10/28/19 10/28/19 18:59 06:59 18:59 Intake Total 300 950 320 Output Total 478 501 1 Balance -178 449 319 Weight 94.5 kg 97.5 kg Intake: IV 300 750 Sodium Chloride 0.9% 1, 300 750 000 ml @ 75 mls/hr IV . [id number] [facility] Rx#:[id number] Intake, IV Titration 200 Amount Levofloxacin 500Mg-D5w 100 Pmx 500 mg In Dextrose/ Water 1 100ml.bag @ 100 mls/hr IVPB Q48H [facility] Rx#: [id number] Piperacillin-Tazobactam 3 100 .375 gm In Sodium Chloride 0.9% 100 ml @ 25 mls/hr IVPB Q12HR [facility] Rx #:[id number] Oral 0 320 Output: Urine 475 500 Stool 3 1 1 Other: Voiding Method Indwelling Catheter Indwelling Catheter Indwelling Catheter # Voids 0 0 # Bowel Movements 1 3 1 - Exam PHYSICAL EXAMINATION: HEENT: Head is atraumatic, normocephalic. Pupils equal, round. Neck is supple. There is no elevated jugular venous pressure. HEART EXAMINATION: Heart sounds irregular irregular, S1 and S2 with a systolic ejection murmur at the base. CHEST EXAMINATION: Lungs are clear to auscultation. No chest wall tenderness is noted on palpation or with deep breathing. ABDOMEN: Soft, nontender. Bowel sounds are heard. No organomegaly noted. EXTREMITIES: 2+ peripheral pulses with no evidence of peripheral edema and no calf tenderness noted. NEUROLOGIC patient is awake, alert and oriented x2. . - Labs CBC & Chem 7: 10/27/19 06:41 10/28/19 05:55 Labs: Abnormal Lab Results - Last 24 Hours (Table) 10/27/19 10/27/19 10/27/19 Range/Units 15:10 16:33 20:36 Potassium (3.5-5.1) mmol/L Chloride (98-107) mmol/L BUN (7-17) mg/dL Creatinine (0.52-1.04) mg/dL Glucose (74-99) mg/dL POC Glucose (mg/dL) 188 H 191 H (75-99) mg/dL Calcium (8.4-10.2) mg/dL Iron 36 L (50-170) ug/dL TSH 9.520 H (0.465-4.680) mIU/L Free T4 2.20 H (0.78-2.19) ng/dL 10/28/19 10/28/19 10/28/19 Range/Units 05:55 06:11 11:52 Potassium 3.1 L (3.5-5.1) mmol/L Chloride 109 H (98-107) mmol/L BUN 57 H (7-17) mg/dL Creatinine 2.27 H (0.52-1.04) mg/dL Glucose 128 H (74-99) mg/dL POC Glucose (mg/dL) 132 H 212 H (75-99) mg/dL Calcium 7.4 L (8.4-10.2) mg/dL Iron (50-170) ug/dL TSH (0.465-4.680) mIU/L Free T4 (0.78-2.19) ng/dL Microbiology - Last 24 Hours (Table) 10/25/19 19:00 Urine Culture - Final Urine,Voided Escherichia coli 10/25/19 18:33 Blood Culture - Preliminary Blood No Growth after 48 hours Assessment and Plan Assessment: #1 altered mental status #2 acute on chronic renal failure, status post dialysis, improved #3 troponin leak of unclear etiology, could be secondary to renal function abnormalities #4 CAD status post bypass grafting many years ago #5 chronic persistent atrial fibrillation #6 permanent pacemaker implantation #7 pulmonary hypertension #8 diabetes mellitus #9 hypertension #10 dyslipidemia Plan: From cardiology perspective, continue to hold losartan and Bumex due to hypotension. Continue Lopressor. Continue to monitor intake and output, daily weights and renal function. We will continue to follow the patient and provide further recommendations accordingly. CONFIGURATION SPECIALIST note has been reviewed, I agree with a documented findings and plan of care. Patient was seen and examined.
[2019-10-28] MEDS: POTASSIUM CHLORIDE ER 20 MEQ TAB.ER PO SCH ×3 (12:48→16:08)
[2019-10-28] MEDS ORDERED: PIPERACILLIN-TAZOBACTAM 3.375 GM in SODIUM CHLORIDE 0.9% 100 ML IVPB SCH (16:00)
[2019-10-28 16:38] VITALS: BP 97/53; PULSE 88; TEMP 98.5
[2019-10-29] MEDS ORDERED: LEVOFLOXACIN 750MG-D5W PMX 750 MG in DEXTROSE/WATER 1 150ML.BAG IVPB SCH (21:00)
== END 2019-10-28 16:27 | DRG 871 ==
LOC: EC 18:01 → 3SCARD 10-26 01:04
PROVIDERS: ADMIT Internal Medicine; ATTEND Internal Medicine
PROC: 5A1D70Z Performance of Urinary Filtration, Intermittent, Less than 6 Hours Per Day (ICD-10-PCS; principal; 2019-10-25)
PROC: 05HD33Z Insertion of Infusion Device into Right Cephalic Vein, Percutaneous Approach (ICD-10-PCS; principal; 2019-10-25)
DX: A41.51 Sepsis due to Escherichia coli [E. coli] (principal); G93.41 Metabolic encephalopathy; N17.0 Acute kidney failure with tubular necrosis; N39.0 Urinary tract infection, site not specified; F11.20 Opioid dependence, uncomplicated; F33.9 Major depressive disorder, recurrent, unspecified; I13.2 Hypertensive heart and chronic kidney disease with heart failure and with stage 5 chronic kidney disease, or end stage renal disease; I48.19 Other persistent atrial fibrillation; I50.32 Chronic diastolic (congestive) heart failure; J98.11 Atelectasis; D63.1 Anemia in chronic kidney disease; D69.6 Thrombocytopenia, unspecified; E11.22 Type 2 diabetes mellitus with diabetic chronic kidney disease; E11.40 Type 2 diabetes mellitus with diabetic neuropathy, unspecified; E11.622 Type 2 diabetes mellitus with other skin ulcer; E11.649 Type 2 diabetes mellitus with hypoglycemia without coma; E66.01 Morbid (severe) obesity due to excess calories; Z68.34 Body mass index [BMI] 34.0-34.9, adult; E78.5 Hyperlipidemia, unspecified; E83.39 Other disorders of phosphorus metabolism; E87.6 Hypokalemia; E89.0 Postprocedural hypothyroidism; F40.240 Claustrophobia; G25.3 Myoclonus; G89.29 Other chronic pain; I25.10 Atherosclerotic heart disease of native coronary artery without angina pectoris; I27.20 Pulmonary hypertension, unspecified; I08.2 Rheumatic disorders of both aortic and tricuspid valves; I48.0 Paroxysmal atrial fibrillation; I49.5 Sick sinus syndrome; K21.9 Gastro-esophageal reflux disease without esophagitis; L98.419 Non-pressure chronic ulcer of buttock with unspecified severity; L98.499 Non-pressure chronic ulcer of skin of other sites with unspecified severity; M19.90 Unspecified osteoarthritis, unspecified site; N18.3 Chronic kidney disease, stage 3 (moderate); Z79.4 Long term (current) use of insulin; Z79.82 Long term (current) use of aspirin; Z79.890 Hormone replacement therapy; Z79.899 Other long term (current) drug therapy; Z80.0 Family history of malignant neoplasm of digestive organs; Z80.42 Family history of malignant neoplasm of prostate; Z80.8 Family history of malignant neoplasm of other organs or systems; Z82.49 Family history of ischemic heart disease and other diseases of the circulatory system; Z83.3 Family history of diabetes mellitus; Z87.440 Personal history of urinary (tract) infections; Z87.891 Personal history of nicotine dependence; Z95.0 Presence of cardiac pacemaker; Z95.1 Presence of aortocoronary bypass graft; Z98.41 Cataract extraction status, right eye; Z98.42 Cataract extraction status, left eye; R79.89 Other specified abnormal findings of blood chemistry; Z82.61 Family history of arthritis; Z83.2 Family history of diseases of the blood and blood-forming organs and certain disorders involving the immune mechanism; Z86.718 Personal history of other venous thrombosis and embolism
CPT/HCPCS: 36410; 36415; 51702; 70450; 71046; 76770; 76937; 80048; 80053; 81001; 82140; 82728; 82803; 83540; 83550; 83605; 83735; 84100; 84439; 84443; 84484; 85025; 85610; 85730; 87040; 87077; 87086; 87186; 90935; 93005; 93306; 94640; 96361; 96365; 96366; 96367; 96375; 96376; 99291

== ENCOUNTER 2019-11-12 02:29 | Inpatient (IN) | payer MEDICARE, OTHER ==
[2019-11-12] MEDS ORDERED: DILTIAZEM DRIP BOLUS FROM BAG 1 MG SOLN IV ONE (02:38)
[2019-11-12] MEDS ORDERED: SODIUM CHLORIDE 0.9% 1,000 ML IV STA ×3 (02:38→03:46)
[2019-11-12 02:42] LABS: Glucose,Whole Blood <20 mg/dL (75-99)
--- NOTE | 2019-11-12 02:51 | ED ---
Altered Mental Status HPI - General Chief Complaint: Altered Mental Status Stated Complaint: Diff breathing Time Seen by Provider: 11/12/19 02:36 Source: EMS, RN notes reviewed, old records reviewed Mode of arrival: EMS - History of Present Illness Initial Comments: This is a 74-year-old female from long term for unresponsiveness. States symptoms just prior to arrival unknown symptoms patient unable with history minimal responsive history obtained from EMS and patient's prior chart MD Complaint: altered mental status, confusion, decreased responsiveness -: unknown Severity: severe Consistency of Symptoms: getting worse Context: history of similar presentation Associated Symptoms: other (Patient unable to provide history) - Related Data Home Medications Medication Instructions Recorded Confirmed Insulin NPL/Insulin Lispro 10 unit SQ TID-W/MEALS 12/03/16 11/12/19 [humaLOG MIX 75-25 VIAL] Aspirin EC [Ecotrin Low Dose] 81 mg PO DAILY@0900 09/09/18 11/12/19 Pantoprazole Sodium [Protonix] 40 mg PO BID@0900,209905/08/19 11/12/19 Acetaminophen Tab [Tylenol] 650 mg PO Q4H PRN 10/25/19 11/12/19 Atorvastatin [Lipitor] 80 mg PO HS@209910/25/19 11/12/19 DULoxetine HCL [Cymbalta] 30 mg PO BID@0900,209910/25/19 11/12/19 Ferrous Sulfate [Iron] 325 mg PO TID@0900,1300,209910/25/19 11/12/19 Isosorbide Mononitrate ER [Imdur] 30 mg PO DAILY@0910/25/19 11/12/19 Metoprolol Tartrate [Lopressor] 25 mg PO BID@0900,209910/25/19 11/12/19 Collagenase [Santyl] 1 applic TOPICAL DAILY PRN 11/12/19 11/12/19 Collagenase [Santyl] 1 applic TOPICAL HS 11/12/19 11/12/19 Lactose-Reduced Food [Ensure Plus] 120 ml PO TID@1000,1400,199911/12/19 11/12/19 Levothyroxine Sodium [Synthroid] 100 mcg PO DAILY@59911/12/19 11/12/19 Lidocaine 5% Patch [Lidoderm 5% 1 patch TOPICAL DAILY@59911/12/19 11/12/19 Patch] Menthol [Biofreeze] 1 applic TOPICAL BID 11/12/19 11/12/19 predniSONE See Taper PO DAILY 11/12/19 11/12/19 Previous Rx's Medication Instructions Recorded Nitroglycerin Sl Tabs [Nitrostat] 0.4 mg SUBLINGUAL Q5M PRN #50 tab 01/27/19 Baclofen 10 mg PO BID PRN #10 09/05/19 Bumetanide [BUMEX] 2 mg PO DAILY #0 10/28/19 Ipratropium-Albuterol Nebulize 3 ml INHALATION RT-TID #0 ml 10/28/19 [Duoneb 0.5 mg-3 mg/3 ml Soln] Pregabalin [Lyrica] 75 mg PO HS@2100 #3 cap 10/28/19 traMADol HCL [Ultram] 50 mg PO BID PRN #6 tab 10/28/19 Allergies Allergy/AdvReac Type Severity Reaction Status Date / Time No Known Allergies Allergy Verified 11/12/19 06:06 Review of Systems ROS Statement: Those systems with pertinent positive or pertinent negative responses have been documented in the HPI. ROS Other: All systems not noted in ROS Statement are negative. Past Medical History Past Medical History: Atrial Fibrillation, Coronary Artery Disease (CAD), Heart Failure, Diabetes Mellitus, Deep Vein Thrombosis (DVT), Hyperlipidemia, Hypertension, Renal Disease, Thyroid Disorder Additional Past Medical History / Comment(s): neuropathy,lupus, back pain, BACK WOUND-Healed, USES CANE , CATARACT bilat. History of Any Multi-Drug Resistant Organisms: VRE Date of last positivie culture/infection: 04/01/16 MDRO Source:: back Past Surgical History: Appendectomy, Back Surgery, Breast Surgery, Cholecystectomy, Coronary Bypass/CABG, Pacemaker Additional Past Surgical History / Comment(s): thyroidectomy. triple bypass 2000 , CATARACT bilat EYE 11/2016, LUE dialysis port. 5 back sx. pt had 2 ablations in [place] for afib- unsuccessful. left arm fistula. Past Anesthesia/Blood Transfusion Reactions: No Reported Reaction Additional Past Anesthesia/Blood Transfusion Reaction / Comment(s): CLAUSTROPHOBIA. HAD A BLOOD TRANSFUSION 1969-NO REACTION. Type of Cardiac Device: Permanent Pacemaker Device Placement Date:: january 2018 Past Psychological History: No Psychological Hx Reported Smoking Status: Former smoker Past Alcohol Use History: None Reported Past Drug Use History: None Reported - Past Family History Father Family Medical History: Cancer Additional Family Medical History / Comment(s): prostate cancer Mother Family Medical History: Cancer, Congestive Heart Failure (CHF), Diabetes Mellitus, Hyperlipidemia, Hypertension, Osteoarthritis (OA) Additional Family Medical History / Comment(s): colon cancer Brother(s) Family Medical History: Coronary Artery Disease (CAD), Deep Vein Thrombosis (DVT) Additional Family Medical History / Comment(s): back surgery Sister(s) Family Medical History: Hyperlipidemia Additional Family Medical History / Comment(s): thyroid cancer General Exam Limitations: altered mental status General appearance: lethargic, obtunded, in distress, obese Head exam: Present: atraumatic, normocephalic, normal inspection Eye exam: Present: normal appearance, other (Pupils appear to represent toxic metabolic encephalopathy, Rovsing). Absent: scleral icterus, conjunctival injection, periorbital swelling ENT exam: Present: normal exam, mucous membranes moist Neck exam: Present: normal inspection. Absent: tenderness, meningismus, lymphadenopathy Respiratory exam: Present: respiratory distress, rales, accessory muscle use, decreased breath sounds, prolonged expiratory. Absent: wheezes, rhonchi, stridor Cardiovascular Exam: Present: tachycardia, irregular rhythm, normal heart sounds. Absent: systolic murmur, diastolic murmur, rubs, gallop, clicks GI/Abdominal exam: Present: soft, normal bowel sounds. Absent: distended, tenderness, guarding, rebound, rigid Extremities exam: Present: normal inspection, full ROM, normal capillary refill. Absent: tenderness, pedal edema, joint swelling, calf tenderness Back exam: Present: normal inspection Neurological exam: Present: altered Psychiatric exam: Present: normal affect, normal mood, flat affect Skin exam: Present: warm, dry, intact, normal color. Absent: rash Course Vital Signs 11/12/19 11/12/19 11/12/19 02:30 03:10 03:35 Temperature 100.8 F H Pulse Rate 153 H 99 104 H Pulse Rate [ Pulse Oximetery ] Respiratory 26 H 26 H 27 H Rate Blood Pressure 88/38 118/65 145/66 Blood Pressure [Right Arm] O2 Sat by Pulse Oximetry 11/12/19 11/12/19 11/12/19 05:46 06:15 06:20 Temperature Pulse Rate 88 92 86 Pulse Rate [ Pulse Oximetery ] Respiratory 24 24 21 Rate Blood Pressure 101/71 78/58 87/54 Blood Pressure [Right Arm] O2 Sat by Pulse 91 L 98 99 Oximetry 11/12/19 11/12/19 11/12/19 06:49 06:54 07:03 Temperature Pulse Rate 96 82 96 Pulse Rate [ Pulse Oximetery ] Respiratory 22 24 22 Rate Blood Pressure 115/76 104/64 114/73 Blood Pressure [Right Arm] O2 Sat by Pulse 98 98 98 Oximetry 11/12/19 11/12/19 07:20 07:30 Temperature 99.8 F H Pulse Rate 96 Pulse Rate [ 75 Pulse Oximetery ] Respiratory 18 18 Rate Blood Pressure 122/97 Blood Pressure 122/97 [Right Arm] O2 Sat by Pulse 98 97 Oximetry - Reevaluation(s) Reevaluation #1: 11/12/19 04:28 Medical records reviewed Reevaluation #2: 11/12/19 04:28 Patient with multiple laboratory abnormalities Reevaluation #3: 11/12/19 04:28 Patient improvement in heart rate control and A. fib control with Cardizem, blood pressures improved with IV fluid resuscitation Reevaluation #4: 11/12/19 04:52 Patient continued to decompensate and stool acidosis both respiratory and metabolic acidosis Procedures - Central Line Placement Right IJ Consent Obtained: verbal consent Patient Placed on Monitor/Pulse Ox: Yes Prep: mask, gown, gloves Central Line Prep: Povidone-Iodine 1% Local Anesthesia Used: Lidocaine 1% Ultrasound Used for Placement: Yes Central Line Lumen Inserted: triple Central Line Position: sutured in place with 3-0 nylon Dressing Applied: Tegaderm Post Procedure X-Ray: tip of catheter in good position Patient Tolerated Procedure: well Complications: none - Intubation Sedative: Versed Laryngoscope: Nazario Size: 4 ET Tube Size: 7.5 ET Tube Uncuffed: No Tube Secured Depth (cm): 23 Tube Secured Location: teeth Tube Placement Confirmation: visualized tube passing through cords, equal breath sounds bilaterally, no breath sounds over epigastrium, confirmation by capnometry Patient Tolerated Procedure: well Intubation Complications: none - Sepsis Sepsis Focused Exam #1 Time Sepsis Criteria Met: 04:30 Sepsis Focused Exam Date: 11/12/19 Sepsis Focused Exam Time: 06:00 Sepsis Focused Exam Complete: Yes Vital Signs & RN Notes Reviewed: Yes Capillary Refill: < 2 Seconds: Fingers, Toes Peripheral Pulses: Weak: Radial (R), Radial (L), Posterior Tibialis (R), Posterior Tibialis (L), Dorsalis Pedis (R), Dorsalis Pedis (L) Skin Color: Flushed, Ashen Respiratory Exam: rhonchi Cardiovascular Exam: tachycardia, irregular rhythm Medical Decision Making - Medical Decision Making 74 female in severe distress severe respiratory distress severely altered mental status. Patient has significant decline here in the emergency department prognosis is very poor, patient remains full code at this time, patient was intubated central line multiple pressors with worsening acidosis despite therapy. - Lab Data Result diagrams: 11/12/19 03:18 11/12/19 18:29 Lab Results 11/12/19 11/12/19 11/12/19 Range/Units 02:36 02:50 03:18 WBC 15.9 H (3.8-10.6) k/uL RBC 4.56 (3.80-5.40) m/uL Hgb 12.2 D (11.4-16.0) gm/dL Hct 42.2 (34.0-46.0) % MCV 92.4 D (80.0-100.0) fL MCH 26.8 (25.0-35.0) pg MCHC 28.9 L (31.0-37.0) g/dL RDW 21.4 H (11.5-15.5) % Plt Count 216 (150-450) k/uL Neutrophils % (Manual) 33 % Band Neutrophils % 34 % Lymphocytes % (Manual) 25 % Monocytes % (Manual) 7 % Metamyelocytes % 2 % Neutrophils # (Manual) 10.60 H (1.3-7.7) k/uL Lymphocytes # (Manual) 3.98 (1.0-4.8) k/uL Monocytes # (Manual) 1.11 H (0-1.0) k/uL Metamyelocytes # (Man) 0.32 H (0) k/uL Nucleated RBCs 1 H (0-0) /100 WBC Manual Slide Review Performed Large Platelets Present Polychromasia Present Hypochromasia Marked Poikilocytosis (manual Present Anisocytosis Moderate Macrocytosis Slight Crenated Cell Present Fragmented RBCs Present PT (9.0-12.0) sec INR (<1.2) APTT (22.0-30.0) sec VBG pH (7.31-7.41) VBG pCO2 (37-51) mmHg VBG HCO3 (24-28) mmol/L Sodium (137-145) mmol/L Potassium (3.5-5.1) mmol/L Chloride (98-107) mmol/L Carbon Dioxide (22-30) mmol/L Anion Gap mmol/L BUN (7-17) mg/dL Creatinine (0.52-1.04) mg/dL Est GFR (CKD-EPI)AfAm (>60 ml/min/1.73 sqM) Est GFR (CKD-EPI)NonAf (>60 ml/min/1.73 sqM) Glucose (74-99) mg/dL POC Glucose (mg/dL) <20 L 93 (75-99) mg/dL POC Glu Pastry Decorator ID Eladio, Kelsey Hendricks, Kelsey Lactic Ac Sepsis Rflx Plasma Lactic Acid Young (0.7-2.0) mmol/L Calcium (8.4-10.2) mg/dL Phosphorus (2.5-4.5) mg/dL Magnesium (1.6-2.3) mg/dL Total Bilirubin (0.2-1.3) mg/dL AST (14-36) U/L ALT (4-34) U/L Alkaline Phosphatase (38-126) U/L Ammonia (<30) umol/L Creatine Kinase (30-135) U/L Troponin I (0.000-0.034) ng/mL NT-Pro-B Natriuret Pep pg/mL Total Protein (6.3-8.2) g/dL Albumin (3.5-5.0) g/dL TSH (0.465-4.680) mIU/L Urine Color Urine Appearance (Clear) Urine pH (5.0-8.0) Ur Specific [place] (1.001-1.035) Urine Protein (Negative) Urine Glucose (UA) (Negative) Urine Ketones (Negative) Urine Blood (Negative) Urine Nitrite (Negative) Urine Bilirubin (Negative) Urine Urobilinogen (<2.0) mg/dL Ur Leukocyte Esterase (Negative) Urine RBC (0-5) /hpf Urine WBC (0-5) /hpf Urine WBC Clumps (None) /hpf Ur Squamous Epith Cells (0-4) /hpf Calcium Oxalate Crystal (None) /hpf Urine Bacteria (None) /hpf Hyaline Casts (0-2) /lpf Urine Mucus (None) /hpf Urine Yeast (Budding) (None) /hpf Free Valproic Acid (4.8-17.3) mg/L 11/12/19 11/12/19 11/12/19 Range/Units 03:18 03:18 03:18 WBC (3.8-10.6) k/uL RBC (3.80-5.40) m/uL Hgb (11.4-16.0) gm/dL Hct (34.0-46.0) % MCV (80.0-100.0) fL MCH (25.0-35.0) pg MCHC (31.0-37.0) g/dL RDW (11.5-15.5) % Plt Count (150-450) k/uL Neutrophils % (Manual) % Band Neutrophils % % Lymphocytes % (Manual) % Monocytes % (Manual) % Metamyelocytes % % Neutrophils # (Manual) (1.3-7.7) k/uL Lymphocytes # (Manual) (1.0-4.8) k/uL Monocytes # (Manual) (0-1.0) k/uL Metamyelocytes # (Man) (0) k/uL Nucleated RBCs (0-0) /100 WBC Manual Slide Review Large Platelets Polychromasia Hypochromasia Poikilocytosis (manual Anisocytosis Macrocytosis Crenated Cell Fragmented RBCs PT 18.8 H (9.0-12.0) sec INR 1.9 H (<1.2) APTT 43.9 H (22.0-30.0) sec VBG pH (7.31-7.41) VBG pCO2 (37-51) mmHg VBG HCO3 (24-28) mmol/L Sodium 133 L (137-145) mmol/L Potassium 6.6 H* (3.5-5.1) mmol/L Chloride 98 (98-107) mmol/L Carbon Dioxide 11 L (22-30) mmol/L Anion Gap 24 mmol/L BUN 42 H (7-17) mg/dL Creatinine 2.80 H (0.52-1.04) mg/dL Est GFR (CKD-EPI)AfAm 18 (>60 ml/min/1.73 sqM) Est GFR (CKD-EPI)NonAf 16 (>60 ml/min/1.73 sqM) Glucose 94 (74-99) mg/dL POC Glucose (mg/dL) (75-99) mg/dL POC Glu Pastry Decorator ID Lactic Ac Sepsis Rflx Plasma Lactic Acid Young 14.4 H* (0.7-2.0) mmol/L Calcium 8.7 (8.4-10.2) mg/dL Phosphorus 11.6 H* (2.5-4.5) mg/dL Magnesium 3.0 H (1.6-2.3) mg/dL Total Bilirubin 2.2 H (0.2-1.3) mg/dL AST 7358 H (14-36) U/L ALT 2046 H (4-34) U/L Alkaline Phosphatase 394 H (38-126) U/L Ammonia 315 H (<30) umol/L Creatine Kinase 2289 H* (30-135) U/L Troponin I (0.000-0.034) ng/mL NT-Pro-B Natriuret Pep pg/mL Total Protein 7.1 (6.3-8.2) g/dL Albumin 2.9 L (3.5-5.0) g/dL TSH 37.700 H (0.465-4.680) mIU/L Urine Color Urine Appearance (Clear) Urine pH (5.0-8.0) Ur Specific [place] (1.001-1.035) Urine Protein (Negative) Urine Glucose (UA) (Negative) Urine Ketones (Negative) Urine Blood (Negative) Urine Nitrite (Negative) Urine Bilirubin (Negative) Urine Urobilinogen (<2.0) mg/dL Ur Leukocyte Esterase (Negative) Urine RBC (0-5) /hpf Urine WBC (0-5) /hpf Urine WBC Clumps (None) /hpf Ur Squamous Epith Cells (0-4) /hpf Calcium Oxalate Crystal (None) /hpf Urine Bacteria (None) /hpf Hyaline Casts (0-2) /lpf Urine Mucus (None) /hpf Urine Yeast (Budding) (None) /hpf Free Valproic Acid (4.8-17.3) mg/L 11/12/19 11/12/19 11/12/19 Range/Units 03:18 03:18 03:18 WBC (3.8-10.6) k/uL RBC (3.80-5.40) m/uL Hgb (11.4-16.0) gm/dL Hct (34.0-46.0) % MCV (80.0-100.0) fL MCH (25.0-35.0) pg MCHC (31.0-37.0) g/dL RDW (11.5-15.5) % Plt Count (150-450) k/uL Neutrophils % (Manual) % Band Neutrophils % % Lymphocytes % (Manual) % Monocytes % (Manual) % Metamyelocytes % % Neutrophils # (Manual) (1.3-7.7) k/uL Lymphocytes # (Manual) (1.0-4.8) k/uL Monocytes # (Manual) (0-1.0) k/uL Metamyelocytes # (Man) (0) k/uL Nucleated RBCs (0-0) /100 WBC Manual Slide Review Large Platelets Polychromasia Hypochromasia Poikilocytosis (manual Anisocytosis Macrocytosis Crenated Cell Fragmented RBCs PT (9.0-12.0) sec INR (<1.2) APTT (22.0-30.0) sec VBG pH 7.02 L* (7.31-7.41) VBG pCO2 54 H (37-51) mmHg VBG HCO3 13 L (24-28) mmol/L Sodium (137-145) mmol/L Potassium (3.5-5.1) mmol/L Chloride (98-107) mmol/L Carbon Dioxide (22-30) mmol/L Anion Gap mmol/L BUN (7-17) mg/dL Creatinine (0.52-1.04) mg/dL Est GFR (CKD-EPI)AfAm (>60 ml/min/1.73 sqM) Est GFR (CKD-EPI)NonAf (>60 ml/min/1.73 sqM) Glucose (74-99) mg/dL POC Glucose (mg/dL) (75-99) mg/dL POC Glu Pastry Decorator ID Lactic Ac Sepsis Rflx Plasma Lactic Acid Young (0.7-2.0) mmol/L Calcium (8.4-10.2) mg/dL Phosphorus (2.5-4.5) mg/dL Magnesium (1.6-2.3) mg/dL Total Bilirubin (0.2-1.3) mg/dL AST (14-36) U/L ALT (4-34) U/L Alkaline Phosphatase (38-126) U/L Ammonia (<30) umol/L Creatine Kinase (30-135) U/L Troponin I 0.198 H* (0.000-0.034) ng/mL NT-Pro-B Natriuret Pep 8400 pg/mL Total Protein (6.3-8.2) g/dL Albumin (3.5-5.0) g/dL TSH (0.465-4.680) mIU/L Urine Color Urine Appearance (Clear) Urine pH (5.0-8.0) Ur Specific [place] (1.001-1.035) Urine Protein (Negative) Urine Glucose (UA) (Negative) Urine Ketones (Negative) Urine Blood (Negative) Urine Nitrite (Negative) Urine Bilirubin (Negative) Urine Urobilinogen (<2.0) mg/dL Ur Leukocyte Esterase (Negative) Urine RBC (0-5) /hpf Urine WBC (0-5) /hpf Urine WBC Clumps (None) /hpf Ur Squamous Epith Cells (0-4) /hpf Calcium Oxalate Crystal (None) /hpf Urine Bacteria (None) /hpf Hyaline Casts (0-2) /lpf Urine Mucus (None) /hpf Urine Yeast (Budding) (None) /hpf Free Valproic Acid (4.8-17.3) mg/L 11/12/19 11/12/19 11/12/19 Range/Units 03:18 03:38 04:01 WBC (3.8-10.6) k/uL RBC (3.80-5.40) m/uL Hgb (11.4-16.0) gm/dL Hct (34.0-46.0) % MCV (80.0-100.0) fL MCH (25.0-35.0) pg MCHC (31.0-37.0) g/dL RDW (11.5-15.5) % Plt Count (150-450) k/uL Neutrophils % (Manual) % Band Neutrophils % % Lymphocytes % (Manual) % Monocytes % (Manual) % Metamyelocytes % % Neutrophils # (Manual) (1.3-7.7) k/uL Lymphocytes # (Manual) (1.0-4.8) k/uL Monocytes # (Manual) (0-1.0) k/uL Metamyelocytes # (Man) (0) k/uL Nucleated RBCs (0-0) /100 WBC Manual Slide Review Large Platelets Polychromasia Hypochromasia Poikilocytosis (manual Anisocytosis Macrocytosis Crenated Cell Fragmented RBCs PT (9.0-12.0) sec INR (<1.2) APTT (22.0-30.0) sec VBG pH (7.31-7.41) VBG pCO2 (37-51) mmHg VBG HCO3 (24-28) mmol/L Sodium (137-145) mmol/L Potassium (3.5-5.1) mmol/L Chloride (98-107) mmol/L Carbon Dioxide (22-30) mmol/L Anion Gap mmol/L BUN (7-17) mg/dL Creatinine (0.52-1.04) mg/dL Est GFR (CKD-EPI)AfAm (>60 ml/min/1.73 sqM) Est GFR (CKD-EPI)NonAf (>60 ml/min/1.73 sqM) Glucose (74-99) mg/dL POC Glucose (mg/dL) (75-99) mg/dL POC Glu Pastry Decorator ID Lactic Ac Sepsis Rflx Y Plasma Lactic Acid Young (0.7-2.0) mmol/L Calcium (8.4-10.2) mg/dL Phosphorus (2.5-4.5) mg/dL Magnesium (1.6-2.3) mg/dL Total Bilirubin (0.2-1.3) mg/dL AST (14-36) U/L ALT (4-34) U/L Alkaline Phosphatase (38-126) U/L Ammonia (<30) umol/L Creatine Kinase (30-135) U/L Troponin I (0.000-0.034) ng/mL NT-Pro-B Natriuret Pep pg/mL Total Protein (6.3-8.2) g/dL Albumin (3.5-5.0) g/dL TSH (0.465-4.680) mIU/L Urine Color Yellow Urine Appearance Cloudy H (Clear) Urine pH 5.0 (5.0-8.0) Ur Specific [place] 1.013 (1.001-1.035) Urine Protein Trace H (Negative) Urine Glucose (UA) Negative (Negative) Urine Ketones Negative (Negative) Urine Blood Small H (Negative) Urine Nitrite Negative (Negative) Urine Bilirubin Negative (Negative) Urine Urobilinogen <2.0 (<2.0) mg/dL Ur Leukocyte Esterase Large H (Negative) Urine RBC 10 H (0-5) /hpf Urine WBC 53 H (0-5) /hpf Urine WBC Clumps Few H (None) /hpf Ur Squamous Epith Cells 3 (0-4) /hpf Calcium Oxalate Crystal Many H (None) /hpf Urine Bacteria Occasional H (None) /hpf Hyaline Casts 81 H (0-2) /lpf Urine Mucus Occasional H (None) /hpf Urine Yeast (Budding) Moderate H (None) /hpf Free Valproic Acid <1.9 L (4.8-17.3) mg/L - EKG Data -: EKG Interpreted by Me (EKG A. fib with RVR 103 QRS, QTc 469) - Radiology Data Radiology results: report reviewed (Chest x-ray may show CHF repeat chest x-ray after tube placement shows improved placement as well as central line), image reviewed Critical Care Time Critical Care Time: Yes Total Critical Care Time: 120 Disposition Clinical Impression: Delirium due to general medical condition, CHF exacerbation, ARF (acute renal failure), Altered mental status, Uremia, Acute on chronic renal failure, Fever, Sepsis Disposition: ADMITTED IP TO THIS HOSP Condition: Critical Is patient prescribed a controlled substance at d/c from ED?: No
[2019-11-12 02:52] LABS: Glucose,Whole Blood 93 mg/dL (75-99)
[2019-11-12] MEDS ORDERED: ACETAMINOPHEN IV (For NPO) 1,000 MG in EMPTY BAG 1 BAG IVPB ONE (03:00)
[2019-11-12] MEDS ORDERED: DILTIAZEM 125 MG in SODIUM CHLORIDE 0.9% 100 ML IV SCH (03:00)
--- NOTE | 2019-11-12 03:03 | XR ---
EXAMINATION TYPE: XR chest 1V portable DATE OF EXAM: 11/12/2019 COMPARISON: 10/25/2019 HISTORY: Altered mental status TECHNIQUE: FINDINGS: Heart is enlarged. There is some pulmonary vascular congestion. There is slight blunting of the costophrenic angles. There are sternal wires. There is right axillary pacemaker. IMPRESSION: Moderate cardiomegaly. There is evidence for some mild congestive heart failure similar t o old exam.
[2019-11-12] MEDS: cefTRIAXone IN SWFI 1,000 MG/10 ML SYRINGE IVP STA ×2 (03:06→03:35)
[2019-11-12 03:42] LABS: VBG PH 7.02 (7.31-7.41)
[2019-11-12] MEDS ORDERED: SODIUM BICARB 8.4% 50 ML SYR (1 MEQ/ML) IV STA ×4 (03:43→12:18)
[2019-11-12 03:49] LABS: Albumin 2.9 g/dL (3.5-5.0); Calcium 8.7 mg/dL (8.4-10.2); Total Bilirubin 2.2 mg/dL (0.2-1.3); Total Protein 7.1 g/dL (6.3-8.2)
[2019-11-12 03:55] LABS: Anisocytosis Moderate; HCT 42.2 % (34.0-46.0); Hypochromasia Marked; MCH 26.8 pg (25.0-35.0); MCHC 28.9 g/dL (31.0-37.0); Macrocytosis Slight; Mean Platelet Volume 9.5; Platelet Count 216 k/uL (150-450); RBC 4.56 m/uL (3.80-5.40); RDW 21.4 % (11.5-15.5)
[2019-11-12 04:00] LABS: INR 1.9 (<1.2); Partial Thromboplastin Time 43.9 sec (22.0-30.0); Prothrombin Time 18.8 sec (9.0-12.0)
[2019-11-12 04:01] LABS: Lactic Acid, Venous 14.4 mmol/L (0.7-2.0); Potassium 6.6 mmol/L (3.5-5.1)
[2019-11-12] MEDS ORDERED: LACTULOSE 20 GM/30 ML CUP RECTAL ONE (04:01)
[2019-11-12 04:02] LABS: Phosphorus 11.6 mg/dL (2.5-4.5)
[2019-11-12 04:11] LABS: HGB 12.2 gm/dL (11.4-16.0)
[2019-11-12 04:12] LABS: MCV 92.4 fL (80.0-100.0)
[2019-11-12] MEDS ORDERED: VANCOMYCIN IV PER PHARMACY 1 EACH MISC MISCELLANE PRN (04:21)
[2019-11-12] MEDS ORDERED: PIPERACILLIN-TAZOBACTAM 3.375 GM in SODIUM CHLORIDE 0.9% 100 ML IVPB STA (04:21)
[2019-11-12 04:27] LABS: Band Neutrophils % 34 %; Lymphocytes # (M) 3.98 k/uL (1.0-4.8); Metamyelocytes # (M) 0.32 k/uL (0); Metamyelocytes % 2 %; Monocytes # (M) 1.11 k/uL (0-1.0); Neutrophils % (M) 33 %; Nucleated Red Blood Cells 1 /100 WBC (0-0); Total Cells Counted 200; WBC 15.9 k/uL (3.8-10.6)
[2019-11-12 04:29] LABS: Large Platelets Present; Polychromasia Present; RBC Fragments Present
[2019-11-12 04:30] LABS: Crenated RBC Present
[2019-11-12] MEDS ORDERED: NALOXONE 0.4 MG/ML 1 ML VIAL IV PRN (04:31)
[2019-11-12 04:38] LABS: Poikilocytosis (M) Present
[2019-11-12] MEDS ORDERED: SODIUM CHLORIDE 0.9% 1,000 ML IV SCH (04:45)
[2019-11-12] MEDS ORDERED: DEXTROSE 5%-0.45% NACL 1,000 ML IV SCH (04:45)
[2019-11-12 04:52] LABS: Appearance,Urine Cloudy (Clear); Bacteria,Urine Occasional /hpf; Bilirubin,Urine Negative (Negative); Blood,Urine Small (Negative); Budding Yeast,Urine Moderate /hpf; Calcium Oxalate Crystals,Urine Many /hpf; Color,Urine Yellow; Glucose,Urine (UA) Negative (Negative); Hyaline Casts,Urine 81 /lpf (0-2); Ketones,Urine Negative (Negative); Leukocyte Esterase,Urine Large (Negative); Mucus,Urine Occasional /hpf; Nitrite,Urine Negative (Negative); Protein,Urine Trace (Negative); RBC,Urine 10 /hpf (0-5); Specific Gravity,Urine 1.013 (1.001-1.035); Squamous Epithelial Cell,Urine 3 /hpf (0-4); Urobilinogen,Urine <2.0 mg/dL (<2.0); WBC,Urine 53 /hpf (0-5)
[2019-11-12] MEDS ORDERED: SODIUM CHLORIDE 0.9% 1,000 ML IV ONE (04:53)
[2019-11-12] MEDS ORDERED: SODIUM CHLORIDE 0.9% 500 ML 500 ML IV ONE (04:53)
[2019-11-12] MEDS ORDERED: fentaNYL (PF) 50 MCG/ML 2 ML AMP IVP PRN (04:56)
[2019-11-12] MEDS ORDERED: VANCOMYCIN 1,750 MG in SODIUM CHLORIDE 0.9% 500 ML 500 ML IVPB ONE (05:00)
[2019-11-12] MEDS: NOREPINEPHRINE 32 MG in SODIUM CHLORIDE 0.9% 218 ML IV ONE ×2 (05:16→08:19)
--- NOTE | 2019-11-12 05:21 | XR ---
EXAMINATION TYPE: XR chest 1V portable DATE OF EXAM: 11/12/2019 COMPARISON: Today HISTORY: Respiratory failure. TECHNIQUE: Single view FINDINGS: There is endotracheal tube 2.5 cm from the fermin. Heart is enlarged. There is mild normal pulmonary interstitial edema. There are sternal wires. Trachea is midline. There is no sign of pleura l effusion. IMPRESSION: Cardiomegaly. There is improvement in pulmonary interstitial edema compared to recent exa m.
[2019-11-12 05:40] LABS: Glucose,Whole Blood 25 mg/dL (75-99)
[2019-11-12] MEDS ORDERED: DEXTROSE 50% SYRINGE 50 ML IVP STA (05:42)
[2019-11-12] MEDS: HYDROCORTISONE SUCCINATE 100 MG/2 ML VIAL IV SCH ×3 (05:57→22:28)
[2019-11-12 06:13] LABS: C Reactive Protein 17.2 mg/L (<10.0)
[2019-11-12 06:34] LABS: LDH >21500 U/L (313-618)
[2019-11-12 06:54] LABS: Glucose,Whole Blood 91 mg/dL (75-99)
[2019-11-12 07:59] LABS: African American GFR (CKD) 18 (>60 ml/min/1.73 sqM); Albumin 2.3 g/dL (3.5-5.0); Alkaline Phosphatase 422 U/L (38-126); Anion Gap 25 mmol/L; Blood Urea Nitrogen 38 mg/dL (7-17); Calcium 7.5 mg/dL (8.4-10.2); Chloride 102 mmol/L (98-107); Glucose 56 mg/dL (74-99); Non-African American GFR(CKD) 15 (>60 ml/min/1.73 sqM); Sodium 135 mmol/L (137-145); Total Bilirubin 1.8 mg/dL (0.2-1.3); Total Protein 6.1 g/dL (6.3-8.2)
[2019-11-12 08:01] LABS: Glucose,Whole Blood 59 mg/dL (75-99)
[2019-11-12 08:15] LABS: Potassium 6.7 mmol/L (3.5-5.1)
[2019-11-12 08:16] LABS: Carbon Dioxide 8 mmol/L (22-30)
[2019-11-12] MEDS ORDERED: INSULIN REGULAR 100 UNIT/ML VIAL IV ONE (08:17)
[2019-11-12] MEDS ORDERED: CALCIUM GLUCONATE 1 GM in SODIUM CHLORIDE 0.9% 100 ML IVPB ONE (08:17)
[2019-11-12] MEDS ORDERED: DEXTROSE 50% SYRINGE 50 ML IVP ONE ×2 (08:17→19:11)
--- NOTE | 2019-11-12 08:33 | P.NPCON ---
History of Present Illness - Reason for Consult acute renal failure, chronic renal failure - History of Present Illness reason for consultation: Acute kidney injury on chronic kidney disease History of present illness: Patient is a 74-year-old female seen in renal consultation for acute kidney injury on chronic kidney disease. Patient has chronic kidney disease stage III with baseline creatinine in the range of 1-1.5. She's had multiple episodes of acute kidney injury and has also undergone hemodialysis in the past. Patient was admitted to the hospital earlier this month and underwent 2 treatments of hemodialysis subsequently good recovery of kidney function. She resides at an [facility] She resides at an [facility]. She was found to be unresponsive and was sent to the hospital. Patient's creatinine was 2.8 on admission and was 2.88 this morning. patient's potassium level was 6.6 on admission and was 6.7 this morning. She is also noted to be extremely acidotic with a bicarbonate level of 8 today.she was noted to be in A. fib with RVR and is maintained on Cardizem drip. She did receive sodium bicarb IV push in the ER. She also received 3 L of normal saline. She is currently intubated on 100% FiO2. She has a Simms catheter. blood pressure is in the systolic 90s. Again she is on Levophed at this time. Vital signs: currently on vasopressor support. fever noted on admission. General: The patient appeared well nourished and normally developed. HEENT: Head exam is unremarkable. intubated. LUNGS: scattered rhonchi. HEART: irregular rate and rhythm. ABDOMEN: soft. No distention noted. EXTREMITITES: No edema. Past Medical History Past Medical History: Atrial Fibrillation, Coronary Artery Disease (CAD), Heart Failure, Diabetes Mellitus, Deep Vein Thrombosis (DVT), Hyperlipidemia, Hypertension, Renal Disease, Thyroid Disorder Additional Past Medical History / Comment(s): neuropathy,lupus, back pain, BACK WOUND-Healed, USES CANE , CATARACT bilat. History of Any Multi-Drug Resistant Organisms: VRE Date of last positivie culture/infection: 04/01/16 MDRO Source:: back Past Surgical History: Appendectomy, Back Surgery, Breast Surgery, Cholecystectomy, Coronary Bypass/CABG, Pacemaker Additional Past Surgical History / Comment(s): thyroidectomy. triple bypass 2000, CATARACT bilat EYE 11/2016, LUE dialysis port. 5 back sx. pt had 2 ablations in [place] for afib- unsuccessful. left arm fistula. Past Anesthesia/Blood Transfusion Reactions: No Reported Reaction Additional Past Anesthesia/Blood Transfusion Reaction / Comment(s): CLAUSTROPHOBIA. HAD A BLOOD TRANSFUSION 1969-NO REACTION. Type of Cardiac Device: Permanent Pacemaker Device Placement Date:: january 2018 Past Psychological History: No Psychological Hx Reported Smoking Status: Former smoker Past Alcohol Use History: None Reported Past Drug Use History: None Reported - Past Family History Father Family Medical History: Cancer Additional Family Medical History / Comment(s): prostate cancer Mother Family Medical History: Cancer, Congestive Heart Failure (CHF), Diabetes Mellitus, Hyperlipidemia, Hypertension, Osteoarthritis (OA) Additional Family Medical History / Comment(s): colon cancer Brother(s) Family Medical History: Coronary Artery Disease (CAD), Deep Vein Thrombosis (DVT) Additional Family Medical History / Comment(s): back surgery Sister(s) Family Medical History: Hyperlipidemia Additional Family Medical History / Comment(s): thyroid cancer Medications and Allergies Home Medications Medication Instructions Recorded Confirmed Type Insulin NPL/Insulin Lispro 10 unit SQ TID-W/MEALS 12/03/16 11/12/19 History [humaLOG MIX 75-25 VIAL] Aspirin EC [Ecotrin Low Dose] 81 mg PO DAILY@0900 09/09/18 11/12/19 History Nitroglycerin Sl Tabs [Nitrostat] 0.4 mg SUBLINGUAL Q5M PRN #50 tab 01/27/19 11/12/19 Rx Pantoprazole Sodium [Protonix] 40 mg PO BID@0900,209905/08/19 11/12/19 History Baclofen 10 mg PO BID PRN #10 09/05/19 11/12/19 Rx Acetaminophen Tab [Tylenol] 650 mg PO Q4H PRN 10/25/19 11/12/19 History Atorvastatin [Lipitor] 80 mg PO HS@209910/25/19 11/12/19 History DULoxetine HCL [Cymbalta] 30 mg PO BID@0900,209910/25/19 11/12/19 History Ferrous Sulfate [Iron] 325 mg PO TID@0900,1300,209910/25/19 11/12/19 History Isosorbide Mononitrate ER [Imdur] 30 mg PO DAILY@0900 10/25/19 11/12/19 History Metoprolol Tartrate [Lopressor] 25 mg PO BID@0900,2100 10/25/19 11/12/19 History Bumetanide [BUMEX] 2 mg PO DAILY #0 10/28/19 11/12/19 Rx Ipratropium-Albuterol Nebulize 3 ml INHALATION RT-TID #0 ml 10/28/19 11/12/19 Rx [Duoneb 0.5 mg-3 mg/3 ml Soln] Pregabalin [Lyrica] 75 mg PO HS@2100 #3 cap 10/28/19 11/12/19 Rx traMADol HCL [Ultram] 50 mg PO BID PRN #6 tab 10/28/19 11/12/19 Rx Collagenase [Santyl] 1 applic TOPICAL DAILY PRN 11/12/19 11/12/19 History Collagenase [Santyl] 1 applic TOPICAL HS 11/12/19 11/12/19 History Lactose-Reduced Food [Ensure Plus] 120 ml PO TID@1000,1400,199911/12/19 11/12/19 History Levothyroxine Sodium [Synthroid] 100 mcg PO DAILY@59911/12/19 11/12/19 History Lidocaine 5% Patch [Lidoderm 5% 1 patch TOPICAL DAILY@59911/12/19 11/12/19 History Patch] Menthol [Biofreeze] 1 applic TOPICAL BID 11/12/19 11/12/19 History predniSONE See Taper PO DAILY 11/12/19 11/12/19 History Allergies Allergy/AdvReac Type Severity Reaction Status Date / Time No Known Allergies Allergy Verified 11/12/19 06:06 Physical Exam Vitals: Vital Signs Temp Pulse Resp BP Pulse Ox 11/12/19 07:30 96 18 122/97 97 11/12/19 07:03 96 22 114/73 98 11/12/19 06:54 82 24 104/64 98 11/12/19 06:49 96 22 115/76 98 11/12/19 06:20 86 21 87/54 99 11/12/19 06:15 92 24 78/58 98 11/12/19 05:46 88 24 101/71 91 L 11/12/19 03:35 104 H 27 H 145/66 11/12/19 03:10 99 26 H 118/65 06/26/20 02:30 100.8 F H 153 H 26 H 88/38 Intake and Output 11/11/19 11/12/19 11/12/19 22:59 06:59 14:59 Intake Total 4.289 Balance 4.289 Intake: Intake, IV Titration 4.289 Amount Norepinephrine 32 mg In 4.289 Sodium Chloride 0.9% 218 ml @ 0.05 MCG/KG/MIN 2. 392 mls/hr IV .Q24H ONE Rx#:[id number] Other: Weight 102.058 kg Results - Lab Results Most recent lab results Calcium 7.5 mg/dL (8.4-10.2) L 11/12/19 07:06 Phosphorus 11.6 mg/dL (2.5-4.5) H* 11/12/19 03:18 Magnesium 3.0 mg/dL (1.6-2.3) H 11/12/19 03:18 11/12/19 03:18 11/12/19 07:06 Assessment and Plan Plan: Assessment: 1. Acute kidney injury secondary to ATN secondary to septic shock. Creatinine 2.88 today. 2. Chronic kidney disease stage III with baseline creatinine in the range of 1- 1.5. 3. Septic shock maintained on Levophed. 4. Hyperkalemia secondary to acute kidney injury and metabolic acidosis. 5. Metabolic acidosis secondary to acute kidney injury and lactic acidosis. 6. Hyperphosphatemia secondary to acute kidney injury. 7. A. fib with RVR maintained on Cardizem drip. Plan: Discontinue normal saline and start isotonic sodium bicarbonate drip to be run at 100 mL an hour. 1 g IV calcium gluconate now. 10 units of IV regular insulin with an amp of D50. 2 A sodium bicarbonate IV push now. Follow-up cultures. Repeat BMP at 11 AM. Patient has an AV fistula which has been used for hemodialysis in the past. Currently the patient is hemodynamically very unstable to tolerate renal replacement therapy. Continue to monitor closely; if potassium level not trending down, will attempt SLED. Thank you for the consultation. I will continue to follow the patient with you during her hospital stay.
[2019-11-12 08:35] LABS: ALT 5142 U/L (4-34)
[2019-11-12 08:45] LABS: AST >15000 U/L (14-36)
[2019-11-12 08:47] LABS: ABG PCO2 20 mmHg (35-45); ABG PO2 335 mmHg (83-108); ABG TCO2 6 mmol/L (19-24); Allen Test Performed? Yes
[2019-11-12 08:49] LABS: ABG HCO3 5 mmol/L (21-25); ABG PH 7.01 (7.35-7.45)
[2019-11-12] MEDS ORDERED: PANTOPRAZOLE 40 MG/10 ML VIAL IV SCH (09:00)
[2019-11-12 09:24] LABS: Glucose,Whole Blood 230 mg/dL (75-99)
[2019-11-12] MEDS: DEXTROSE 5% IN WATER 1,000 ML with SODIUM BICARB (1 MEQ/ML) 150 ML IV SCH ×2 (09:38→19:59)
--- NOTE | 2019-11-12 09:57 | P.HPIM ---
History of Present Illness H&P Date: 11/12/19 Chief Complaint: Acute respiratory failure, acute kidney injury with chronic kidney disease, 74-year-old female one of Dr. Plata's patient from [facility] on the [place] who was in the hospital 2 weeks ago for sepsis and urinary tract infection who had acute kidney injury and was on hemodialysis at the time. Patient is known to have fistula graft in the left forearm was dialyzed for 3 days symptoms become much better patient ended up in the discharged to [facility] on antibiotics and discussion to continue dialysis was up to nephrology at the time. Patient found to be unresponsive and [facility] signal helper today brought to demurs department via EMS found to have potassium of 6.6 with creatinine of 2.8 her blood CAD showed acute metabolic acidosis patient was in acute respiratory failure found to be in A. fib with RVR was started on Cardizem drip her troponin were quite bit elevated at the time. Patient was intubated and placed on mechanical ventilation her blood pressure was very low was started on Levophed and transferred to the intensive care unit. Review of Systems CONSTITUTIONAL: Well-developed and responsive on mechanical ventilation. EYES: No icterus sclerae, no conjunctivitis. EARS, NOSE, MOUTH, THROAT, and FACE: No sore throat, lymphadenopathy, carotid bruits or deformity. RESPIRATORY: Acute respiratory failure and mechanical ventilation with ET tube on. CARDIOVASCULAR: A. fib with RVR with elevated troponin and significant hypotension. GASTROINTESTINAL: No Abd pain, Nausea or vomiting, no Diarrhea or constipation, No GI Bleed, no distention or masses. GENITOURINARY: Recent UTI and sepsis and chronic kidney disease. INTEGUMENT/BREAST: Negative for any muscular injury with mild osteoarthritis.. HEMATOLOGIC/LYMPHATIC: Negative for bleed or purpura. MUSCULOSKELTAL: Negative for Myalgia or arthralgia. NEURLOGICAL: Unresponsive on mechanical ventilation. BEHAVIORAL/PSYCH: Negative. ENDOCRINE: Negative. Past Medical History Past Medical History: Atrial Fibrillation, Coronary Artery Disease (CAD), Heart Failure, Diabetes Mellitus, Deep Vein Thrombosis (DVT), Hyperlipidemia, H ypertension, Renal Disease, Thyroid Disorder Additional Past Medical History / Comment(s): neuropathy,lupus, back pain, BACK WOUND-Healed, USES CANE , CATARACT bilat. History of Any Multi-Drug Resistant Organisms: VRE Date of last positivie culture/infection: 04/01/16 MDRO Source:: back Past Surgical History: Appendectomy, Back Surgery, Breast Surgery, Cholecystectomy, Coronary Bypass/CABG, Pacemaker Additional Past Surgical History / Comment(s): thyroidectomy. triple bypass 2000, CATARACT bilat EYE 11/2016, LUE dialysis port. 5 back sx. pt had 2 ablations in [place] for afib- unsuccessful. left arm fistula. Past Anesthesia/Blood Transfusion Reactions: No Reported Reaction Additional Past Anesthesia/Blood Transfusion Reaction / Comment(s): CLAUSTROPHOBIA. HAD A BLOOD TRANSFUSION 1968-NO REACTION. Type of Cardiac Device: Permanent Pacemaker Device Placement Date:: january 2018 Past Psychological History: No Psychological Hx Reported Smoking Status: Former smoker Past Alcohol Use History: None Reported Past Drug Use History: None Reported - Past Family History Father Family Medical History: Cancer Additional Family Medical History / Comment(s): prostate cancer Mother Family Medical History: Cancer, Congestive Heart Failure (CHF), Diabetes Mellitus, Hyperlipidemia, Hypertension, Osteoarthritis (OA) Additional Family Medical History / Comment(s): colon cancer Brother(s) Family Medical History: Coronary Artery Disease (CAD), Deep Vein Thrombosis (DVT) Additional Family Medical History / Comment(s): back surgery Sister(s) Family Medical History: Hyperlipidemia Additional Family Medical History / Comment(s): thyroid cancer Medications and Allergies Home Medications Medication Instructions Recorded Confirmed Type Insulin NPL/Insulin Lispro 10 unit SQ TID-W/MEALS 12/03/16 11/12/19 History [humaLOG MIX 75-25 VIAL] Aspirin EC [Ecotrin Low Dose] 81 mg PO DAILY@0900 09/09/18 11/12/19 History Nitroglycerin Sl Tabs [Nitrostat] 0.4 mg SUBLINGUAL Q5M PRN #50 tab 01/27/19 11/12/19 Rx Pantoprazole Sodium [Protonix] 40 mg PO BID@0900,2100 05/08/19 11/12/19 History Baclofen 10 mg PO BID PRN #10 09/05/19 11/12/19 Rx Acetaminophen Tab [Tylenol] 650 mg PO Q4H PRN 10/25/19 11/12/19 History Atorvastatin [Lipitor] 80 mg PO HS@209910/25/19 11/12/19 History DULoxetine HCL [Cymbalta] 30 mg PO BID@0900,2100 10/25/1926/20 History Ferrous Sulfate [Iron] 325 mg PO TID@0900,1300,209910/25/19 11/12/19 History Isosorbide Mononitrate ER [Imdur] 30 mg PO DAILY@0900 10/25/19 11/12/19 History Metoprolol Tartrate [Lopressor] 25 mg PO BID@0900,209910/25/19 11/12/19 History Bumetanide [BUMEX] 2 mg PO DAILY #0 10/28/19 11/12/19 Rx Ipratropium-Albuterol Nebulize 3 ml INHALATION RT-TID #0 ml 10/28/19 11/12/19 Rx [Duoneb 0.5 mg-3 mg/3 ml Soln] Pregabalin [Lyrica] 75 mg PO HS@2099 #3 cap 10/28/19 11/12/19 Rx traMADol HCL [Ultram] 50 mg PO BID PRN #6 tab 10/28/19 11/12/19 Rx Collagenase [Santyl] 1 applic TOPICAL DAILY PRN 11/12/19 11/12/19 History Collagenase [Santyl] 1 applic TOPICAL HS 11/12/19 11/12/19 History Lactose-Reduced Food [Ensure Plus] 120 ml PO TID@1000,1400,199911/12/19 11/12/19 History Levothyroxine Sodium [Synthroid] 100 mcg PO DAILY@59911/12/19 11/12/19 History Lidocaine 5% Patch [Lidoderm 5% 1 patch TOPICAL DAILY@59911/12/19 11/12/19 History Patch] Menthol [Biofreeze] 1 applic TOPICAL BID 11/12/19 11/12/19 History predniSONE See Taper PO DAILY 11/12/19 11/12/19 History Allergies Allergy/AdvReac Type Severity Reaction Status Date / Time No Known Allergies Allergy Verified 11/12/19 06:06 Physical Exam Vitals: Vital Signs Temp Pulse Resp BP Pulse Ox 11/12/19 09:15 79 25 H 96/50 96 11/12/19 09:00 89 10 L 78/42 96 11/12/19 08:45 81 27 H 79/54 11/12/19 08:30 86 25 H 82/72 96 11/12/19 08:15 84 24 91/60 39 L 11/12/19 08:00 99.8 F H 93 24 96/62 11/12/19 07:45 95 23 11/12/19 07:30 96 18 122/97 97 11/12/19 07:03 96 22 114/73 98 11/12/19 06:54 82 24 104/64 98 11/12/19 06:49 96 22 115/76 98 11/12/19 06:20 86 21 87/54 99 11/12/19 06:15 92 24 78/58 98 11/12/19 05:46 88 24 101/71 91 L 11/12/19 03:35 104 H 27 H 145/66 11/12/19 03:10 99 26 H 118/65 11/12/19 02:30 100.8 F H 153 H 26 H 88/38 Intake and Output 11/11/19 11/12/19 11/12/19 22:59 06:59 14:59 Intake Total 4.289 293.284 Balance 4.289 293.284 Intake: IV 280 Calcium Gluconate 1 gm In 100 Sodium Chloride 0.9% 100 ml @ 400 mls/hr IVPB ONCE ONE Rx#:[id number] Dextrose 5% in Water 1, 180 000 ml @ 150 mls/hr IV . Q7H40M RUTH with Sodium Bicarb (1 Meq/ml) 150 ml Rx#:[id number] Intake, IV Titration 4.289 13.284 Amount Norepinephrine 32 mg In 4.289 13.284 Sodium Chloride 0.9% 218 ml @ 0.05 MCG/KG/MIN 2. 392 mls/hr IV .Q24H ONE Rx#:[id number] Other: Weight 102.058 kg General Appearance: Unresponsive mildly overweight laying in bed has ET tube on with no sedation. Neck HEENT: Supple, no lymphadenopathy, no thyroid enlargement, no carotid bruits. ET tube in place. Lungs: Decreased breath some bilaterally fine rhonchi mild crackles in the bases positive expiratory wheezes. Chest Wall: Decrease expansion with deep inspiration no tenderness and no deformity was found on exam, no costochondral pain or discomfort. Heart: Irregular rate and rhythm, S1, S2 positive history positive JVD with systolic murmur. Back: Severe scoliosis with mild deformity. Abdomen: Soft slightly distended positive bowel sounds. Extremities: Trace edema with significant arthritis and slight discoloration from the knee down. Dialysis fistula graft in the left forearm. Pulses: Decreased pulse bilaterally. Skin: Skin color, texture, tugor normal, no rashes or lesions. Neurologic: Unresponsive on mechanical ventilation nor respond to pain stimuli at the time. Results CBC & Chem 7: 11/12/19 03:18 11/12/19 07:06 Labs: Abnormal Lab Results - Last 24 Hours (Table) 11/12/19 11/12/19 11/12/19 Range/Units 02:36 03:18 03:18 WBC 15.9 H (3.8-10.6) k/uL MCHC 28.9 L (31.0-37.0) g/dL RDW 21.4 H (11.5-15.5) % Neutrophils # (Manual) 10.60 H (1.3-7.7) k/uL Monocytes # (Manual) 1.11 H (0-1.0) k/uL Metamyelocytes # (Man) 0.32 H (0) k/uL Nucleated RBCs 1 H (0-0) /100 WBC PT 18.8 H (9.0-12.0) sec INR 1.9 H (<1.2) APTT 43.9 H (22.0-30.0) sec ABG pH (7.35-7.45) ABG pCO2 (35-45) mmHg ABG pO2 (83-108) mmHg ABG HCO3 (21-25) mmol/L ABG Total CO2 (19-24) mmol/L ABG O2 Saturation (94-97) % VBG pH (7.31-7.41) VBG pCO2 (37-51) mmHg VBG HCO3 (24-28) mmol/L Sodium (137-145) mmol/L Potassium (3.5-5.1) mmol/L Carbon Dioxide (22-30) mmol/L BUN (7-17) mg/dL Creatinine (0.52-1.04) mg/dL Glucose (74-99) mg/dL POC Glucose (mg/dL) <20 L (75-99) mg/dL Plasma Lactic Acid Young (0.7-2.0) mmol/L Calcium (8.4-10.2) mg/dL Phosphorus (2.5-4.5) mg/dL Magnesium (1.6-2.3) mg/dL Total Bilirubin (0.2-1.3) mg/dL AST (14-36) U/L ALT (4-34) U/L Alkaline Phosphatase (38-126) U/L Ammonia (<30) umol/L Lactate Dehydrogenase (313-618) U/L Creatine Kinase (30-135) U/L Troponin I (0.000-0.034) ng/mL C-Reactive Protein (<10.0) mg/L Total Protein (6.3-8.2) g/dL Albumin (3.5-5.0) g/dL TSH (0.465-4.680) mIU/L Urine Appearance (Clear) Urine Protein (Negative) Urine Blood (Negative) Ur Leukocyte Esterase (Negative) Urine RBC (0-5) /hpf Urine WBC (0-5) /hpf Urine WBC Clumps (None) /hpf Calcium Oxalate Crystal (None) /hpf Urine Bacteria (None) /hpf Hyaline Casts (0-2) /lpf Urine Mucus (None) /hpf Urine Yeast (Budding) (None) /hpf Stool Occult Blood (Negative) 11/12/19 11/12/19 11/12/19 Range/Units 03:18 03:18 03:18 WBC (3.8-10.6) k/uL MCHC (31.0-37.0) g/dL RDW (11.5-15.5) % Neutrophils # (Manual) (1.3-7.7) k/uL Monocytes # (Manual) (0-1.0) k/uL Metamyelocytes # (Man) (0) k/uL Nucleated RBCs (0-0) /100 WBC PT (9.0-12.0) sec INR (<1.2) APTT (22.0-30.0) sec ABG pH (7.35-7.45) ABG pCO2 (35-45) mmHg ABG pO2 (83-108) mmHg ABG HCO3 (21-25) mmol/L ABG Total CO2 (19-24) mmol/L ABG O2 Saturation (94-97) % VBG pH (7.31-7.41) VBG pCO2 (37-51) mmHg VBG HCO3 (24-28) mmol/L Sodium 133 L (137-145) mmol/L Potassium 6.6 H* (3.5-5.1) mmol/L Carbon Dioxide 11 L (22-30) mmol/L BUN 42 H (7-17) mg/dL Creatinine 2.80 H (0.52-1.04) mg/dL Glucose (74-99) mg/dL POC Glucose (mg/dL) (75-99) mg/dL Plasma Lactic Acid Young 14.4 H* (0.7-2.0) mmol/L Calcium (8.4-10.2) mg/dL Phosphorus 11.6 H* (2.5-4.5) mg/dL Magnesium 3.0 H (1.6-2.3) mg/dL Total Bilirubin 2.2 H (0.2-1.3) mg/dL AST 7358 H (14-36) U/L ALT 2046 H (4-34) U/L Alkaline Phosphatase 394 H (38-126) U/L Ammonia 315 H (<30) umol/L Lactate Dehydrogenase (313-618) U/L Creatine Kinase 2289 H* (30-135) U/L Troponin I 0.198 H* (0.000-0.034) ng/mL C-Reactive Protein (<10.0) mg/L Total Protein (6.3-8.2) g/dL Albumin 2.9 L (3.5-5.0) g/dL TSH 37.700 H (0.465-4.680) mIU/L Urine Appearance (Clear) Urine Protein (Negative) Urine Blood (Negative) Ur Leukocyte Esterase (Negative) Urine RBC (0-5) /hpf Urine WBC (0-5) /hpf Urine WBC Clumps (None) /hpf Calcium Oxalate Crystal (None) /hpf Urine Bacteria (None) /hpf Hyaline Casts (0-2) /lpf Urine Mucus (None) /hpf Urine Yeast (Budding) (None) /hpf Stool Occult Blood (Negative) 11/12/19 11/12/19 11/12/19 Range/Units 03:18 03:38 05:30 WBC (3.8-10.6) k/uL MCHC (31.0-37.0) g/dL RDW (11.5-15.5) % Neutrophils # (Manual) (1.3-7.7) k/uL Monocytes # (Manual) (0-1.0) k/uL Metamyelocytes # (Man) (0) k/uL Nucleated RBCs (0-0) /100 WBC PT (9.0-12.0) sec INR (<1.2) APTT (22.0-30.0) sec ABG pH (7.35-7.45) ABG pCO2 (35-45) mmHg ABG pO2 (83-108) mmHg ABG HCO3 (21-25) mmol/L ABG Total CO2 (19-24) mmol/L ABG O2 Saturation (94-97) % VBG pH 7.02 L* (7.31-7.41) VBG pCO2 54 H (37-51) mmHg VBG HCO3 13 L (24-28) mmol/L Sodium (137-145) mmol/L Potassium (3.5-5.1) mmol/L Carbon Dioxide (22-30) mmol/L BUN (7-17) mg/dL Creatinine (0.52-1.04) mg/dL Glucose (74-99) mg/dL POC Glucose (mg/dL) (75-99) mg/dL Plasma Lactic Acid Young 12.8 H* (0.7-2.0) mmol/L Calcium (8.4-10.2) mg/dL Phosphorus (2.5-4.5) mg/dL Magnesium (1.6-2.3) mg/dL Total Bilirubin (0.2-1.3) mg/dL AST (14-36) U/L ALT (4-34) U/L Alkaline Phosphatase (38-126) U/L Ammonia (<30) umol/L Lactate Dehydrogenase (313-618) U/L Creatine Kinase (30-135) U/L Troponin I (0.000-0.034) ng/mL C-Reactive Protein (<10.0) mg/L Total Protein (6.3-8.2) g/dL Albumin (3.5-5.0) g/dL TSH (0.465-4.680) mIU/L Urine Appearance Cloudy H (Clear) Urine Protein Trace H (Negative) Urine Blood Small H (Negative) Ur Leukocyte Esterase Large H (Negative) Urine RBC 10 H (0-5) /hpf Urine WBC 53 H (0-5) /hpf Urine WBC Clumps Few H (None) /hpf Calcium Oxalate Crystal Many H (None) /hpf Urine Bacteria Occasional H (None) /hpf Hyaline Casts 81 H (0-2) /lpf Urine Mucus Occasional H (None) /hpf Urine Yeast (Budding) Moderate H (None) /hpf Stool Occult Blood (Negative) 11/12/19 11/12/19 11/12/19 Range/Units 05:30 05:33 07:06 WBC (3.8-10.6) k/uL MCHC (31.0-37.0) g/dL RDW (11.5-15.5) % Neutrophils # (Manual) (1.3-7.7) k/uL Monocytes # (Manual) (0-1.0) k/uL Metamyelocytes # (Man) (0) k/uL Nucleated RBCs (0-0) /100 WBC PT (9.0-12.0) sec INR (<1.2) APTT (22.0-30.0) sec ABG pH (7.35-7.45) ABG pCO2 (35-45) mmHg ABG pO2 (83-108) mmHg ABG HCO3 (21-25) mmol/L ABG Total CO2 (19-24) mmol/L ABG O2 Saturation (94-97) % VBG pH (7.31-7.41) VBG pCO2 (37-51) mmHg VBG HCO3 (24-28) mmol/L Sodium 135 L (137-145) mmol/L Potassium 6.7 H* (3.5-5.1) mmol/L Carbon Dioxide 8 L* (22-30) mmol/L BUN 38 H (7-17) mg/dL Creatinine 2.88 H (0.52-1.04) mg/dL Glucose 56 L (74-99) mg/dL POC Glucose (mg/dL) 25 L (75-99) mg/dL Plasma Lactic Acid Young (0.7-2.0) mmol/L Calcium 7.5 L (8.4-10.2) mg/dL Phosphorus (2.5-4.5) mg/dL Magnesium (1.6-2.3) mg/dL Total Bilirubin 1.8 H (0.2-1.3) mg/dL AST >90196 H (14-36) U/L ALT 5142 H (4-34) U/L Alkaline Phosphatase 422 H (38-126) U/L Ammonia (<30) umol/L Lactate Dehydrogenase >61739 H (313-618) U/L Creatine Kinase (30-135) U/L Troponin I (0.000-0.034) ng/mL C-Reactive Protein 17.2 H (<10.0) mg/L Total Protein 6.1 L (6.3-8.2) g/dL Albumin 2.3 L (3.5-5.0) g/dL TSH (0.465-4.680) mIU/L Urine Appearance (Clear) Urine Protein (Negative) Urine Blood (Negative) Ur Leukocyte Esterase (Negative) Urine RBC (0-5) /hpf Urine WBC (0-5) /hpf Urine WBC Clumps (None) /hpf Calcium Oxalate Crystal (None) /hpf Urine Bacteria (None) /hpf Hyaline Casts (0-2) /lpf Urine Mucus (None) /hpf Urine Yeast (Budding) (None) /hpf Stool Occult Blood (Negative) 11/12/19 11/12/19 11/12/19 Range/Units 07:59 08:18 08:42 WBC (3.8-10.6) k/uL MCHC (31.0-37.0) g/dL RDW (11.5-15.5) % Neutrophils # (Manual) (1.3-7.7) k/uL Monocytes # (Manual) (0-1.0) k/uL Metamyelocytes # (Man) (0) k/uL Nucleated RBCs (0-0) /100 WBC PT (9.0-12.0) sec INR (<1.2) APTT (22.0-30.0) sec ABG pH 7.01 L* (7.35-7.45) ABG pCO2 20 L (35-45) mmHg ABG pO2 335 H (83-108) mmHg ABG HCO3 5 L* (21-25) mmol/L ABG Total CO2 6 L (19-24) mmol/L ABG O2 Saturation 99.0 H (94-97) % VBG pH (7.31-7.41) VBG pCO2 (37-51) mmHg VBG HCO3 (24-28) mmol/L Sodium (137-145) mmol/L Potassium (3.5-5.1) mmol/L Carbon Dioxide (22-30) mmol/L BUN (7-17) mg/dL Creatinine (0.52-1.04) mg/dL Glucose (74-99) mg/dL POC Glucose (mg/dL) 59 L (75-99) mg/dL Plasma Lactic Acid Young (0.7-2.0) mmol/L Calcium (8.4-10.2) mg/dL Phosphorus (2.5-4.5) mg/dL Magnesium (1.6-2.3) mg/dL Total Bilirubin (0.2-1.3) mg/dL AST (14-36) U/L ALT (4-34) U/L Alkaline Phosphatase (38-126) U/L Ammonia (<30) umol/L Lactate Dehydrogenase (313-618) U/L Creatine Kinase (30-135) U/L Troponin I (0.000-0.034) ng/mL C-Reactive Protein (<10.0) mg/L Total Protein (6.3-8.2) g/dL Albumin (3.5-5.0) g/dL TSH (0.465-4.680) mIU/L Urine Appearance (Clear) Urine Protein (Negative) Urine Blood (Negative) Ur Leukocyte Esterase (Negative) Urine RBC (0-5) /hpf Urine WBC (0-5) /hpf Urine WBC Clumps (None) /hpf Calcium Oxalate Crystal (None) /hpf Urine Bacteria (None) /hpf Hyaline Casts (0-2) /lpf Urine Mucus (None) /hpf Urine Yeast (Budding) (None) /hpf Stool Occult Blood Positive H (Negative) 11/12/19 Range/Units 09:23 WBC (3.8-10.6) k/uL MCHC (31.0-37.0) g/dL RDW (11.5-15.5) % Neutrophils # (Manual) (1.3-7.7) k/uL Monocytes # (Manual) (0-1.0) k/uL Metamyelocytes # (Man) (0) k/uL Nucleated RBCs (0-0) /100 WBC PT (9.0-12.0) sec INR (<1.2) APTT (22.0-30.0) sec ABG pH (7.35-7.45) ABG pCO2 (35-45) mmHg ABG pO2 (83-108) mmHg ABG HCO3 (21-25) mmol/L ABG Total CO2 (19-24) mmol/L ABG O2 Saturation (94-97) % VBG pH (7.31-7.41) VBG pCO2 (37-51) mmHg VBG HCO3 (24-28) mmol/L Sodium (137-145) mmol/L Potassium (3.5-5.1) mmol/L Carbon Dioxide (22-30) mmol/L BUN (7-17) mg/dL Creatinine (0.52-1.04) mg/dL Glucose (74-99) mg/dL POC Glucose (mg/dL) 230 H (75-99) mg/dL Plasma Lactic Acid Young (0.7-2.0) mmol/L Calcium (8.4-10.2) mg/dL Phosphorus (2.5-4.5) mg/dL Magnesium (1.6-2.3) mg/dL Total Bilirubin (0.2-1.3) mg/dL AST (14-36) U/L ALT (4-34) U/L Alkaline Phosphatase (38-126) U/L Ammonia (<30) umol/L Lactate Dehydrogenase (313-618) U/L Creatine Kinase (30-135) U/L Troponin I (0.000-0.034) ng/mL C-Reactive Protein (<10.0) mg/L Total Protein (6.3-8.2) g/dL Albumin (3.5-5.0) g/dL TSH (0.465-4.680) mIU/L Urine Appearance (Clear) Urine Protein (Negative) Urine Blood (Negative) Ur Leukocyte Esterase (Negative) Urine RBC (0-5) /hpf Urine WBC (0-5) /hpf Urine WBC Clumps (None) /hpf Calcium Oxalate Crystal (None) /hpf Urine Bacteria (None) /hpf Hyaline Casts (0-2) /lpf Urine Mucus (None) /hpf Urine Yeast (Budding) (None) /hpf Stool Occult Blood (Negative) Thrombosis Risk Factor Assmnt - DVT/VTE Prophylaxis DVT/VTE Prophylaxis: Mechanical Prophylaxis ordered Assessment and Plan Assessment: 1 acute respiratory failure: Most likely secondary to sepsis, acute OH, severe hypertension. 2 sepsis: Source most likely UTI blood culture was done start patient on IV antibiotic consult infectious disease, consult critical care continue current management for now. 3 acute kidney injury with chronic kidney disease most likely from ATN and hypotension along with sepsis at the time patient does not need dialysis yet nephrology consultation is on. For hyperkalemia: Secondary to acute kidney injury, continue hydration for now a nd sodium bicarbonate IV along with D50 with IV insulin. 5 elevated troponin with possible non-ST OH: Consult cardiology echocardiogram keep watching troponin in the next 24 hours. 6 metabolic acidosis: Secondary to acute kidney injury and acute kidney failure continue hydration and treat kidney failure at this time. 7 A. fib with RVR: Patient was started on Cardizem drip continue medication try to keep pulse below 100 bpm. 8 chronic pain syndrome: Patient was on narcotic before has been off at this point. 9 known coronary artery disease post triple bypass surgery back in 2000, still seen cardiology. 10 moderate pulmonary hypertension and moderate pulmonic valve regurgitation: On medical management at this point. 12 type 2 diabetes uncontrolled with hypo-/hyperglycemia, will continue patient on insulin per sliding scales protocol for now. 13 hypertension: More hypertension at this point will continue vasopressor drip. 14 hypothyroidism: Has been on levothyroxine 100 g daily her TSH is much higher her free T4 from last time was quite bit high medication were adjusted. 15 chronic depression: Has been on Cymbalta 30 mg twice a day. 16 chronic back pain and severe neuropathy has been on Lyrica and baclofen along with tramadol does was reduce before she left the hospital last time. 17 GI prophylaxis: Patient will be on pantoprazole IV. 18 DVT prophylaxis: Patient will be on heparin prophylaxis. CODE STATUS: Full code. Admit patient to inpatient service for more than 2 night stay.
[2019-11-12 11:18] LABS: African American GFR (CKD) 18 (>60 ml/min/1.73 sqM); Albumin 2.3 g/dL (3.5-5.0); Alkaline Phosphatase 494 U/L (38-126); Anion Gap 27 mmol/L; Blood Urea Nitrogen 39 mg/dL (7-17); Calcium 8.3 mg/dL (8.4-10.2); Chloride 100 mmol/L (98-107); Glucose 142 mg/dL (74-99); Non-African American GFR(CKD) 15 (>60 ml/min/1.73 sqM); Sodium 135 mmol/L (137-145); Total Bilirubin 1.6 mg/dL (0.2-1.3)
[2019-11-12 11:38] LABS: Potassium 6.1 mmol/L (3.5-5.1)
[2019-11-12 11:39] LABS: Carbon Dioxide 8 mmol/L (22-30)
[2019-11-12 11:47] LABS: Lactic Acid, Venous 18.9 mmol/L (0.7-2.0)
[2019-11-12 11:57] LABS: ALT 6714 U/L (4-34); AST >15000 U/L (14-36)
[2019-11-12 12:24] LABS: Glucose,Whole Blood 174 mg/dL (75-99)
--- NOTE | 2019-11-12 12:31 | P.CONS ---
History of Present Illness - Reason for Consult Consult date: 11/12/19 Wound care - History of Present Illness This is a 74-year-old patient of Dr. Soto who resides at [facility]. She was found unresponsive and was sent to the emergency room for evaluation upon arrival to the ICU she was found to have a nonhealing stage II pressure ulcer to the left gluteus. Previous hospitalization states that the ulceration has healed and reopened multiple times. Patient has been seen the wound care doctor at [facility]. No dressings were placed on the ulceration upon arrival to the hospital. Review of Systems ROS unobtainable: due to endotracheal tube Past Medical History Past Medical History: Atrial Fibrillation, Coronary Artery Disease (CAD), Heart Failure, Diabetes Mellitus, Deep Vein Thrombosis (DVT), Hyperlipidemia, Hypertension, Renal Disease, Thyroid Disorder Additional Past Medical History / Comment(s): neuropathy,lupus, back pain, BACK WOUND-Healed, USES CANE , CATARACT bilat. 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 triple bypass 2000, CATARACT bilat EYE 11/2016, LUE dialysis port. 5 back sx. pt had 2 ablati ons in [place] for afib- unsuccessful. left arm fistula. Past Anesthesia/Blood Transfusion Reactions: No Reported Reaction Additional Past Anesthesia/Blood Transfusion Reaction / Comm: CLAUSTROPHOBIA. HAD A BLOOD TRANSFUSION 1968-NO REACTION. Type of Cardiac Device: Permanent Pacemaker Device Placement Date:: january 2018 Past Psychological History: No Psychological Hx Reported Smoking Status: Former smoker Past Alcohol Use History: None Reported Past Drug Use History: None Reported - Past Family History Father Family Medical History: Cancer Additional Family Medical History / Comment(s): prostate cancer Mother Family Medical History: Cancer, Congestive Heart Failure (CHF), Diabetes Mellitus, Hyperlipidemia, Hypertension, Osteoarthritis (OA) Additional Family Medical History / Comment(s): colon cancer Brother(s) Family Medical History: Coronary Artery Disease (CAD), Deep Vein Thrombosis (DVT) Additional Family Medical History / Comment(s): back surgery Sister(s) Family Medical History: Hyperlipidemia Additional Family Medical History / Comment(s): thyroid cancer Medications and Allergies Home Medications Medication Instructions Recorded Confirmed Type Insulin NPL/Insulin Lispro 10 unit SQ TID-W/MEALS 12/03/16 11/12/19 History [humaLOG MIX 75-25 VIAL] Aspirin EC [Ecotrin Low Dose] 81 mg PO DAILY@0900 09/09/18 11/12/19 History Nitroglycerin Sl Tabs [Nitrostat] 0.4 mg SUBLINGUAL Q5M PRN #50 tab 01/27/19 11/12/19 Rx Pantoprazole Sodium [Protonix] 40 mg PO BID@0900,209905/08/19 11/12/19 History Baclofen 10 mg PO BID PRN #10 09/05/19 11/12/19 Rx Acetaminophen Tab [Tylenol] 650 mg PO Q4H PRN 10/25/19 11/12/19 History Atorvastatin [Lipitor] 80 mg PO HS@209910/25/19 11/12/19 History DULoxetine HCL [Cymbalta] 30 mg PO BID@0900,209910/25/19 11/12/19 History Ferrous Sulfate [Iron] 325 mg PO TID@0900,1300,209910/25/19 11/12/19 History Isosorbide Mononitrate ER [Imdur] 30 mg PO DAILY@0900 10/25/19 11/12/19 History Metoprolol Tartrate [Lopressor] 25 mg PO BID@0900,209910/25/19 11/12/19 History Bumetanide [BUMEX] 2 mg PO DAILY #0 10/28/19 11/12/19 Rx Ipratropium-Albuterol Nebulize 3 ml INHALATION RT-TID #0 ml 10/28/19 11/12/19 Rx [Duoneb 0.5 mg-3 mg/3 ml Soln] Pregabalin [Lyrica] 75 mg PO HS@2099 #3 cap 10/28/19 11/12/19 Rx traMADol HCL [Ultram] 50 mg PO BID PRN #6 tab 10/28/19 11/12/19 Rx Collagenase [Santyl] 1 applic TOPICAL DAILY PRN 11/12/19 11/12/19 History Collagenase [Santyl] 1 applic TOPICAL HS 11/12/19 11/12/19 History Lactose-Reduced Food [Ensure Plus] 120 ml PO TID@1000,1400,199911/12/19 11/12/19 History Levothyroxine Sodium [Synthroid] 100 mcg PO DAILY@59911/12/19 11/12/19 History Lidocaine 5% Patch [Lidoderm 5% 1 patch TOPICAL DAILY@59911/12/19 11/12/19 History Patch] Menthol [Biofreeze] 1 applic TOPICAL BID 11/12/19 11/12/19 History predniSONE See Taper PO DAILY 11/12/19 11/12/19 History Allergies Allergy/AdvReac Type Severity Reaction Status Date / Time No Known Allergies Allergy Verified 11/12/19 06:06 Physical Exam Vitals: Vital Signs Temp Pulse Pulse Resp BP BP Pulse Ox 11/12/19 11:30 70 14 145/135 11/12/19 11:15 79 25 H 120/108 94 L 11/12/19 11:00 77 25 H 125/110 94 L 11/12/19 10:45 70 23 121/97 95 11/12/19 10:30 73 24 87/54 95 11/12/19 10:15 73 24 133/55 95 11/12/19 10:00 70 24 130/45 95 11/12/19 09:45 76 24 111/78 96 11/12/19 09:30 78 24 70/44 97 11/12/19 09:15 79 25 H 96/50 96 11/12/19 09:00 89 10 L 78/42 96 11/12/19 08:45 81 27 H 79/54 11/12/19 08:30 86 25 H 82/72 96 11/12/19 08:15 84 24 91/60 39 L 11/12/19 08:00 99.8 F H 93 24 96/62 11/12/19 07:45 95 23 11/12/19 07:30 96 18 122/97 97 11/12/19 07:20 99.8 F H 75 18 122/97 98 11/12/19 07:03 96 22 114/73 98 11/12/19 06:54 82 24 104/64 98 11/12/19 06:49 96 22 115/76 98 11/12/19 06:20 86 21 87/54 99 11/12/19 06:15 92 24 78/58 98 06/26/20 05:46 88 24 101/71 91 L 11/12/19 03:35 104 H 27 H 145/66 11/12/19 03:10 99 26 H 118/65 11/12/19 02:30 100.8 F H 153 H 26 H 88/38 Intake and Output 11/11/19 11/12/19 11/12/19 22:59 06:59 14:59 Intake Total 4.289 767.197 Output Total 0 Balance 4.289 767.197 Intake: IV 730 Calcium Gluconate 1 gm In 100 Sodium Chloride 0.9% 100 ml @ 400 mls/hr IVPB ONCE ONE Rx#:[id number] Dextrose 5% in Water 1, 630 000 ml @ 150 mls/hr IV . Q7H40M RUTH with Sodium Bicarb (1 Meq/ml) 150 ml Rx#:[id number] Intake, IV Titration 4.289 37.197 Amount Norepinephrine 32 mg In 4.289 37.197 Sodium Chloride 0.9% 218 ml @ 0.05 MCG/KG/MIN 2. 392 mls/hr IV .Q24H ONE Rx#:[id number] Output: Urine 0 Other: Weight 102.058 kg 102.058 kg Physical exam: General Appearance: Appears stated age, patient intubated, Skin: Left gluteus ulceration stage II pressure ulcer is full thickness, with fat layer exposure, minimal granulation seen within wound bed, no tunneling and undermining noted, nonviable necrotic tissue noted such as adherent slough and eschar, para room shows scarring and dryness, wound edges attached to wound bed measuring approximately 7 x 10 x 0.3 cm all other Skin color, texture, tugor decreased no rashes or lesions. Neurologic: Alert oriented x3 Results CBC & Chem 7: 11/12/19 03:18 11/12/19 10:40 Labs: Abnormal Lab Results - Last 24 Hours (Table) 11/12/19 11/12/19 11/12/19 Range/Units 02:36 03:18 03:18 WBC 15.9 H (3.8-10.6) k/uL MCHC 28.9 L (31.0-37.0) g/dL RDW 21.4 H (11.5-15.5) % Neutrophils # (Manual) 10.60 H (1.3-7.7) k/uL Monocytes # (Manual) 1.11 H (0-1.0) k/uL Metamyelocytes # (Man) 0.32 H (0) k/uL Nucleated RBCs 1 H (0-0) /100 WBC PT 18.8 H (9.0-12.0) sec INR 1.9 H (<1.2) APTT 43.9 H (22.0-30.0) sec ABG pH (7.35-7.45) ABG pCO2 (35-45) mmHg ABG pO2 (83-108) mmHg ABG HCO3 (21-25) mmol/L ABG Total CO2 (19-24) mmol/L ABG O2 Saturation (94-97) % VBG pH (7.31-7.41) VBG pCO2 (37-51) mmHg VBG HCO3 (24-28) mmol/L Sodium (137-145) mmol/L Potassium (3.5-5.1) mmol/L Carbon Dioxide (22-30) mmol/L BUN (7-17) mg/dL Creatinine (0.52-1.04) mg/dL Glucose (74-99) mg/dL POC Glucose (mg/dL) <20 L (75-99) mg/dL Plasma Lactic Acid Young (0.7-2.0) mmol/L Calcium (8.4-10.2) mg/dL Phosphorus (2.5-4.5) mg/dL Magnesium (1.6-2.3) mg/dL Total Bilirubin (0.2-1.3) mg/dL AST (14-36) U/L ALT (4-34) U/L Alkaline Phosphatase (38-126) U/L Ammonia (<30) umol/L Lactate Dehydrogenase (313-618) U/L Creatine Kinase (30-135) U/L Troponin I (0.000-0.034) ng/mL C-Reactive Protein (<10.0) mg/L Total Protein (6.3-8.2) g/dL Albumin (3.5-5.0) g/dL TSH (0.465-4.680) mIU/L Urine Appearance (Clear) Urine Protein (Negative) Urine Blood (Negative) Ur Leukocyte Esterase (Negative) Urine RBC (0-5) /hpf Urine WBC (0-5) /hpf Urine WBC Clumps (None) /hpf Calcium Oxalate Crystal (None) /hpf Urine Bacteria (None) /hpf Hyaline Casts (0-2) /lpf Urine Mucus (None) /hpf Urine Yeast (Budding) (None) /hpf Stool Occult Blood (Negative) 11/12/19 11/12/19 11/12/19 Range/Units 03:18 03:18 03:18 WBC (3.8-10.6) k/uL MCHC (31.0-37.0) g/dL RDW (11.5-15.5) % Neutrophils # (Manual) (1.3-7.7) k/uL Monocytes # (Manual) (0-1.0) k/uL Metamyelocytes # (Man) (0) k/uL Nucleated RBCs (0-0) /100 WBC PT (9.0-12.0) sec INR (<1.2) APTT (22.0-30.0) sec ABG pH (7.35-7.45) ABG pCO2 (35-45) mmHg ABG pO2 (83-108) mmHg ABG HCO3 (21-25) mmol/L ABG Total CO2 (19-24) mmol/L ABG O2 Saturation (94-97) % VBG pH (7.31-7.41) VBG pCO2 (37-51) mmHg VBG HCO3 (24-28) mmol/L Sodium 133 L (137-145) mmol/L Potassium 6.6 H* (3.5-5.1) mmol/L Carbon Dioxide 11 L (22-30) mmol/L BUN 42 H (7-17) mg/dL Creatinine 2.80 H (0.52-1.04) mg/dL Glucose (74-99) mg/dL POC Glucose (mg/dL) (75-99) mg/dL Plasma Lactic Acid Young 14.4 H* (0.7-2.0) mmol/L Calcium (8.4-10.2) mg/dL Phosphorus 11.6 H* (2.5-4.5) mg/dL Magnesium 3.0 H (1.6-2.3) mg/dL Total Bilirubin 2.2 H (0.2-1.3) mg/dL AST 7358 H (14-36) U/L ALT 2046 H (4-34) U/L Alkaline Phosphatase 394 H (38-126) U/L Ammonia 315 H (<30) umol/L Lactate Dehydrogenase (313-618) U/L Creatine Kinase 2289 H* (30-135) U/L Troponin I 0.198 H* (0.000-0.034) ng/mL C-Reactive Protein (<10.0) mg/L Total Protein (6.3-8.2) g/dL Albumin 2.9 L (3.5-5.0) g/dL TSH 37.700 H (0.465-4.680) mIU/L Urine Appearance (Clear) Urine Protein (Negative) Urine Blood (Negative) Ur Leukocyte Esterase (Negative) Urine RBC (0-5) /hpf Urine WBC (0-5) /hpf Urine WBC Clumps (None) /hpf Calcium Oxalate Crystal (None) /hpf Urine Bacteria (None) /hpf Hyaline Casts (0-2) /lpf Urine Mucus (None) /hpf Urine Yeast (Budding) (None) /hpf Stool Occult Blood (Negative) 11/12/19 11/12/19 11/12/19 Range/Units 03:18 03:38 05:30 WBC (3.8-10.6) k/uL MCHC (31.0-37.0) g/dL RDW (11.5-15.5) % Neutrophils # (Manual) (1.3-7.7) k/uL Monocytes # (Manual) (0-1.0) k/uL Metamyelocytes # (Man) (0) k/uL Nucleated RBCs (0-0) /100 WBC PT (9.0-12.0) sec INR (<1.2) APTT (22.0-30.0) sec ABG pH (7.35-7.45) ABG pCO2 (35-45) mmHg ABG pO2 (83-108) mmHg ABG HCO3 (21-25) mmol/L ABG Total CO2 (19-24) mmol/L ABG O2 Saturation (94-97) % VBG pH 7.02 L* (7.31-7.41) VBG pCO2 54 H (37-51) mmHg VBG HCO3 13 L (24-28) mmol/L Sodium (137-145) mmol/L Potassium (3.5-5.1) mmol/L Carbon Dioxide (22-30) mmol/L BUN (7-17) mg/dL Creatinine (0.52-1.04) mg/dL Glucose (74-99) mg/dL POC Glucose (mg/dL) (75-99) mg/dL Plasma Lactic Acid Young 12.8 H* (0.7-2.0) mmol/L Calcium (8.4-10.2) mg/dL Phosphorus (2.5-4.5) mg/dL Magnesium (1.6-2.3) mg/dL Total Bilirubin (0.2-1.3) mg/dL AST (14-36) U/L ALT (4-34) U/L Alkaline Phosphatase (38-126) U/L Ammonia (<30) umol/L Lactate Dehydrogenase (313-618) U/L Creatine Kinase (30-135) U/L Troponin I (0.000-0.034) ng/mL C-Reactive Protein (<10.0) mg/L Total Protein (6.3-8.2) g/dL Albumin (3.5-5.0) g/dL TSH (0.465-4.680) mIU/L Urine Appearance Cloudy H (Clear) Urine Protein Trace H (Negative) Urine Blood Small H (Negative) Ur Leukocyte Esterase Large H (Negative) Urine RBC 10 H (0-5) /hpf Urine WBC 53 H (0-5) /hpf Urine WBC Clumps Few H (None) /hpf Calcium Oxalate Crystal Many H (None) /hpf Urine Bacteria Occasional H (None) /hpf Hyaline Casts 81 H (0-2) /lpf Urine Mucus Occasional H (None) /hpf Urine Yeast (Budding) Moderate H (None) /hpf Stool Occult Blood (Negative) 11/12/19 11/12/19 11/12/19 Range/Units 05:30 05:33 07:06 WBC (3.8-10.6) k/uL MCHC (31.0-37.0) g/dL RDW (11.5-15.5) % Neutrophils # (Manual) (1.3-7.7) k/uL Monocytes # (Manual) (0-1.0) k/uL Metamyelocytes # (Man) (0) k/uL Nucleated RBCs (0-0) /100 WBC PT (9.0-12.0) sec INR (<1.2) APTT (22.0-30.0) sec ABG pH (7.35-7.45) ABG pCO2 (35-45) mmHg ABG pO2 (83-108) mmHg ABG HCO3 (21-25) mmol/L ABG Total CO2 (19-24) mmol/L ABG O2 Saturation (94-97) % VBG pH (7.31-7.41) VBG pCO2 (37-51) mmHg VBG HCO3 (24-28) mmol/L Sodium 135 L (137-145) mmol/L Potassium 6.7 H* (3.5-5.1) mmol/L Carbon Dioxide 8 L* (22-30) mmol/L BUN 38 H (7-17) mg/dL Creatinine 2.88 H (0.52-1.04) mg/dL Glucose 56 L (74-99) mg/dL POC Glucose (mg/dL) 25 L (75-99) mg/dL Plasma Lactic Acid Young (0.7-2.0) mmol/L Calcium 7.5 L (8.4-10.2) mg/dL Phosphorus (2.5-4.5) mg/dL Magnesium (1.6-2.3) mg/dL Total Bilirubin 1.8 H (0.2-1.3) mg/dL AST >87739 H (14-36) U/L ALT 5142 H (4-34) U/L Alkaline Phosphatase 422 H (38-126) U/L Ammonia (<30) umol/L Lactate Dehydrogenase >88467 H (313-618) U/L Creatine Kinase (30-135) U/L Troponin I (0.000-0.034) ng/mL C-Reactive Protein 17.2 H (<10.0) mg/L Total Protein 6.1 L (6.3-8.2) g/dL Albumin 2.3 L (3.5-5.0) g/dL TSH (0.465-4.680) mIU/L Urine Appearance (Clear) Urine Protein (Negative) Urine Blood (Negative) Ur Leukocyte Esterase (Negative) Urine RBC (0-5) /hpf Urine WBC (0-5) /hpf Urine WBC Clumps (None) /hpf Calcium Oxalate Crystal (None) /hpf Urine Bacteria (None) /hpf Hyaline Casts (0-2) /lpf Urine Mucus (None) /hpf Urine Yeast (Budding) (None) /hpf Stool Occult Blood (Negative) 11/12/19 11/12/19 11/12/19 Range/Units 07:59 08:18 08:42 WBC (3.8-10.6) k/uL MCHC (31.0-37.0) g/dL RDW (11.5-15.5) % Neutrophils # (Manual) (1.3-7.7) k/uL Monocytes # (Manual) (0-1.0) k/uL Metamyelocytes # (Man) (0) k/uL Nucleated RBCs (0-0) /100 WBC PT (9.0-12.0) sec INR (<1.2) APTT (22.0-30.0) sec ABG pH 7.01 L* (7.35-7.45) ABG pCO2 20 L (35-45) mmHg ABG pO2 335 H (83-108) mmHg ABG HCO3 5 L* (21-25) mmol/L ABG Total CO2 6 L (19-24) mmol/L ABG O2 Saturation 99.0 H (94-97) % VBG pH (7.31-7.41) VBG pCO2 (37-51) mmHg VBG HCO3 (24-28) mmol/L Sodium (137-145) mmol/L Potassium (3.5-5.1) mmol/L Carbon Dioxide (22-30) mmol/L BUN (7-17) mg/dL Creatinine (0.52-1.04) mg/dL Glucose (74-99) mg/dL POC Glucose (mg/dL) 59 L (75-99) mg/dL Plasma Lactic Acid Young (0.7-2.0) mmol/L Calcium (8.4-10.2) mg/dL Phosphorus (2.5-4.5) mg/dL Magnesium (1.6-2.3) mg/dL Total Bilirubin (0.2-1.3) mg/dL AST (14-36) U/L ALT (4-34) U/L Alkaline Phosphatase (38-126) U/L Ammonia (<30) umol/L Lactate Dehydrogenase (313-618) U/L Creatine Kinase (30-135) U/L Troponin I (0.000-0.034) ng/mL C-Reactive Protein (<10.0) mg/L Total Protein (6.3-8.2) g/dL Albumin (3.5-5.0) g/dL TSH (0.465-4.680) mIU/L Urine Appearance (Clear) Urine Protein (Negative) Urine Blood (Negative) Ur Leukocyte Esterase (Negative) Urine RBC (0-5) /hpf Urine WBC (0-5) /hpf Urine WBC Clumps (None) /hpf Calcium Oxalate Crystal (None) /hpf Urine Bacteria (None) /hpf Hyaline Casts (0-2) /lpf Urine Mucus (None) /hpf Urine Yeast (Budding) (None) /hpf Stool Occult Blood Positive H (Negative) 11/12/19 11/12/19 11/12/19 Range/Units 09:23 10:40 10:40 WBC (3.8-10.6) k/uL MCHC (31.0-37.0) g/dL RDW (11.5-15.5) % Neutrophils # (Manual) (1.3-7.7) k/uL Monocytes # (Manual) (0-1.0) k/uL Metamyelocytes # (Man) (0) k/uL Nucleated RBCs (0-0) /100 WBC PT (9.0-12.0) sec INR (<1.2) APTT (22.0-30.0) sec ABG pH (7.35-7.45) ABG pCO2 (35-45) mmHg ABG pO2 (83-108) mmHg ABG HCO3 (21-25) mmol/L ABG Total CO2 (19-24) mmol/L ABG O2 Saturation (94-97) % VBG pH (7.31-7.41) VBG pCO2 (37-51) mmHg VBG HCO3 (24-28) mmol/L Sodium 135 L (137-145) mmol/L Potassium 6.1 H* (3.5-5.1) mmol/L Carbon Dioxide 8 L* (22-30) mmol/L BUN 39 H (7-17) mg/dL Creatinine 2.87 H (0.52-1.04) mg/dL Glucose 142 H (74-99) mg/dL POC Glucose (mg/dL) 230 H (75-99) mg/dL Plasma Lactic Acid Young 18.9 H* (0.7-2.0) mmol/L Calcium 8.3 L (8.4-10.2) mg/dL Phosphorus (2.5-4.5) mg/dL Magnesium (1.6-2.3) mg/dL Total Bilirubin 1.6 H (0.2-1.3) mg/dL AST >33009 H (14-36) U/L ALT 6714 H (4-34) U/L Alkaline Phosphatase 494 H (38-126) U/L Ammonia 236 H (<30) umol/L Lactate Dehydrogenase (313-618) U/L Creatine Kinase (30-135) U/L Troponin I (0.000-0.034) ng/mL C-Reactive Protein (<10.0) mg/L Total Protein 6.0 L (6.3-8.2) g/dL Albumin 2.3 L (3.5-5.0) g/dL TSH (0.465-4.680) mIU/L Urine Appearance (Clear) Urine Protein (Negative) Urine Blood (Negative) Ur Leukocyte Esterase (Negative) Urine RBC (0-5) /hpf Urine WBC (0-5) /hpf Urine WBC Clumps (None) /hpf Calcium Oxalate Crystal (None) /hpf Urine Bacteria (None) /hpf Hyaline Casts (0-2) /lpf Urine Mucus (None) /hpf Urine Yeast (Budding) (None) /hpf Stool Occult Blood (Negative) 11/11/ Range/Units 12:22 WBC (3.8-10.6) k/uL MCHC (31.0-37.0) g/dL RDW (11.5-15.5) % Neutrophils # (Manual) (1.3-7.7) k/uL Monocytes # (Manual) (0-1.0) k/uL Metamyelocytes # (Man) (0) k/uL Nucleated RBCs (0-0) /100 WBC PT (9.0-12.0) sec INR (<1.2) APTT (22.0-30.0) sec ABG pH (7.35-7.45) ABG pCO2 (35-45) mmHg ABG pO2 (83-108) mmHg ABG HCO3 (21-25) mmol/L ABG Total CO2 (19-24) mmol/L ABG O2 Saturation (94-97) % VBG pH (7.31-7.41) VBG pCO2 (37-51) mmHg VBG HCO3 (24-28) mmol/L Sodium (137-145) mmol/L Potassium (3.5-5.1) mmol/L Carbon Dioxide (22-30) mmol/L BUN (7-17) mg/dL Creatinine (0.52-1.04) mg/dL Glucose (74-99) mg/dL POC Glucose (mg/dL) 174 H (75-99) mg/dL Plasma Lactic Acid Young (0.7-2.0) mmol/L Calcium (8.4-10.2) mg/dL Phosphorus (2.5-4.5) mg/dL Magnesium (1.6-2.3) mg/dL Total Bilirubin (0.2-1.3) mg/dL AST (14-36) U/L ALT (4-34) U/L Alkaline Phosphatase (38-126) U/L Ammonia (<30) umol/L Lactate Dehydrogenase (313-618) U/L Creatine Kinase (30-135) U/L Troponin I (0.000-0.034) ng/mL C-Reactive Protein (<10.0) mg/L Total Protein (6.3-8.2) g/dL Albumin (3.5-5.0) g/dL TSH (0.465-4.680) mIU/L Urine Appearance (Clear) Urine Protein (Negative) Urine Blood (Negative) Ur Leukocyte Esterase (Negative) Urine RBC (0-5) /hpf Urine WBC (0-5) /hpf Urine WBC Clumps (None) /hpf Calcium Oxalate Crystal (None) /hpf Urine Bacteria (None) /hpf Hyaline Casts (0-2) /lpf Urine Mucus (None) /hpf Urine Yeast (Budding) (None) /hpf Stool Occult Blood (Negative) Microbiology - Last 24 Hours (Table) 11/12/19 03:38 Urine Culture - Preliminary Urine,Voided Assessment and Plan (1) Pressure ulcer of sacral region, stage 2 Current Visit: Yes Status: Acute Code(s): L89.152 - PRESSURE ULCER OF SACRAL REGION, STAGE 2 SNOMED Code(s): 385510919 Plan: Apply honey alginate, saline moist gauze, dry gauze, cover with border foam. Change Friday. May change the outer dressings as needed. Utilizing barrier cream to periwound as needed. Thank you kindly for the consultation. Any questions to contact the wound care center DNP note has been reviewed and discussed with Dr. Puckett and the impression and plan of care has been directed as dictated.
[2019-11-12] MEDS: INSULIN ASPART (NovoLOG) 100 UNIT/ML VIAL SQ SCH ×3 (12:32→21:02)
[2019-11-12 12:34] LABS: Ferritin 2720.4 ng/mL (10.0-291.0)
--- NOTE | 2019-11-12 14:04 | P.CNPUL ---
History of Present Illness Consult date: 11/12/19 History of present illness: A 74-year-old female patient who came into the emergency department this morning with acute respiratory failure, shock, acute kidney injury on top of chronic kidney failure. The patient has extensive medical problems and comorbidities. She has had multiple has position the past. She was in the hospital approximately 2 weeks ago for sepsis and UTI and acute on top of chronic kidney injury requiring a brief dialysis session. The patient improved and she was discharged [facility]. She has a fistula graft in the left upper extremity hemodialysis needed. Note that the patient was found unresponsive with a [facility]itentiary and the patient was brought into the emergency department and she had been unresponsive and she had significant abnormalities in her blood test. Specifically, the patient was found to have a acute on top of chronic kidney failure with a creatinine of 2.87 in addition to acute hyperkalemia with a potassium level of 6.6, serum bicarb of 11 along with an anion gap metabolic acidosis in addition to her lactic acid level of 14.4, phosphorus of 11.6, magnesium of 3, bilirubin of 2.2, shock liver with significant elevation of the AST and ALT, and the patient had a proBNP level of 8400 with a TSH of 37 and a pro-calcitonin of 2.65. Hemoglobin was 11.2. The white cell count was 15.5. She had positive occult blood in the stool. UA showing 53 WBCs, 10 RBCs and yeast and bacteria. The patient currently intubated on a mechanical ventilator. She is on assist control mode at the rate of 18 with a tidal volume of 450 and FiO2 of 100% with a PEEP of 5. The morning blood gases showed a pH of 7.011 with a pCO2 of 20 and pO2 of 335 and FiO2 of 50%. Her CBG Was 25 and She Was Treated. She Was Given Triple-Lumen Catheter in the ED and the Patient Has a IJ triple-lumen catheter in place. The patient was also found to be in A. fib RVR. She was initially placed on a Cardizem drip. Subsequently, norepinephrine was admitted to maintain a systolic blood pressure above 90. Earlier this morning, the patient was on norepinephrine infusion running at 15 g per minute. She is also on Cardizem at 5 mg an hour. The patient was also treated for hyperkalemia. She was given Lasix of sodium bicarb is 20 mEq each and she was started on a bicarb infusion with 150 mEq of sodium bicarbonate running at 150 mL an hour. She was given calcium gluconate in insulin D50 glucose hyperkalemia cocktail. The follow-up levels are still elevated in terms of the potassium level which started to 6.1 and the lactic acid remains quite elevated and the patient will likely need dialysis. I'm in the process of discussing this with nephrology regarding the patient's need for hemodialysis. She is hemodynamically unstable and obviously the hypotension could be initial during dialysis. The patient has had multiple UTIs in the past and last UTI was on 10/25/2027 with attributed to 2.5 cm above the fermin. Review of Systems ROS unobtainable: due to endotracheal tube Past Medical History Past Medical History: Atrial Fibrillation, Coronary Artery Disease (CAD), Heart Failure, Diabetes Mellitus, Deep Vein Thrombosis (DVT), Hyperlipidemia, Hypertension, Renal Disease, Thyroid Disorder Additional Past Medical History / Comment(s): neuropathy,lupus, back pain, BACK WOUND-Healed, USES CANE , CATARACT bilat. History of Any Multi-Drug Resistant Organisms: VRE Date of last positivie culture/infection: 04/01/16 MDRO Source:: back Past Surgical History: Appendectomy, Back Surgery, Breast Surgery, Cholecystectomy, Coronary Bypass/CABG, Pacemaker Additional Past Surgical History / Comment(s): thyroidectomy. triple bypass 2000, CATARACT bilat EYE 11/2016, LUE dialysis port. 5 back sx. pt had 2 ablations in ID for afib- unsuccessful. left arm fistula. Past Anesthesia/Blood Transfusion Reactions: No Reported Reaction Additional Past Anesthesia/Blood Transfusion Reaction / Comment(s): CLAUSTROPHOBIA. HAD A BLOOD TRANSFUSION 1968-NO REACTION. Type of Cardiac Device: Permanent Pacemaker Device Placement Date:: january 2018 Past Psychological History: No Psychological Hx Reported Smoking Status: Former smoker Past Alcohol Use History: None Reported Past Drug Use History: None Reported - Past Family History Father Family Medical History: Cancer Additional Family Medical History / Comment(s): prostate cancer Mother Family Medical History: Cancer, Congestive Heart Failure (CHF), Diabetes Mellitus, Hyperlipidemia, Hypertension, Osteoarthritis (OA) Additional Family Medical History / Comment(s): colon cancer Brother(s) Family Medical History: Coronary Artery Disease (CAD), Deep Vein Thrombosis (DVT) Additional Family Medical History / Comment(s): back surgery Sister(s) Family Medical History: Hyperlipidemia Additional Family Medical History / Comment(s): thyroid cancer Medications and Allergies Home Medications Medication Instructions Recorded Confirmed Type Insulin NPL/Insulin Lispro 10 unit SQ TID-W/MEALS 12/03/16 11/12/19 History [humaLOG MIX 75-25 VIAL] Aspirin EC [Ecotrin Low Dose] 81 mg PO DAILY@0900 09/09/18 11/12/19 History Nitroglycerin Sl Tabs [Nitrostat] 0.4 mg SUBLINGUAL Q5M PRN #50 tab 01/27/19 11/12/19 Rx Pantoprazole Sodium [Protonix] 40 mg PO BID@0900,209905/08/19 11/12/19 History Baclofen 10 mg PO BID PRN #10 09/05/19 11/12/19 Rx Acetaminophen Tab [Tylenol] 650 mg PO Q4H PRN 10/25/19 11/12/19 History Atorvastatin [Lipitor] 80 mg PO HS@209910/25/19 11/12/19 History DULoxetine HCL [Cymbalta] 30 mg PO BID@0900,209910/25/19 11/12/19 History Ferrous Sulfate [Iron] 325 mg PO TID@0900,1300,209910/25/19 11/12/19 History Isosorbide Mononitrate ER [Imdur] 30 mg PO DAILY@0900 10/25/19 11/12/19 History Metoprolol Tartrate [Lopressor] 25 mg PO BID@0900,2100 10/25/19 11/12/19 History Bumetanide [BUMEX] 2 mg PO DAILY #0 10/28/19 11/12/19 Rx Ipratropium-Albuterol Nebulize 3 ml INHALATION RT-TID #0 ml 10/28/19 11/12/19 Rx [Duoneb 0.5 mg-3 mg/3 ml Soln] Pregabalin [Lyrica] 75 mg PO HS@2100 #3 cap 10/28/19 11/12/19 Rx traMADol HCL [Ultram] 50 mg PO BID PRN #6 tab 10/28/19 11/12/19 Rx Collagenase [Santyl] 1 applic TOPICAL DAILY PRN 11/12/19 11/12/19 History Collagenase [Santyl] 1 applic TOPICAL HS 11/12/19 11/12/19 History Lactose-Reduced Food [Ensure Plus] 120 ml PO TID@1000,1400,2000 11/12/19 0 History Levothyroxine Sodium [Synthroid] 100 mcg PO DAILY@59911/12/19 11/12/19 History Lidocaine 5% Patch [Lidoderm 5% 1 patch TOPICAL DAILY@59911/12/19 11/12/19 History Patch] Menthol [Biofreeze] 1 applic TOPICAL BID 11/12/19 11/12/19 History predniSONE See Taper PO DAILY 11/12/19 11/12/19 History Allergies Allergy/AdvReac Type Severity Reaction Status Date / Time No Known Allergies Allergy Verified 11/12/19 06:06 Physical Exam Vitals: Vital Signs Temp Pulse Pulse Resp BP BP Pulse Ox 11/12/19 13:00 75 81/56 96 11/12/19 12:45 82 23 81/56 95 11/12/19 12:30 77 24 81/56 95 11/12/19 12:15 84 22 81/56 97 11/12/19 12:00 81 22 67/37 97 11/12/19 11:45 77 23 85/69 96 11/12/19 11:30 70 14 145/135 11/12/19 11:15 79 25 H 120/108 94 L 11/12/19 11:00 77 25 H 125/110 94 L 11/12/19 10:45 70 23 121/97 95 11/12/19 10:30 73 24 87/54 95 11/12/19 10:15 73 24 133/55 95 11/12/19 10:00 70 24 130/45 95 11/12/19 09:45 76 24 111/78 96 11/12/19 09:30 78 24 70/44 97 11/12/19 09:15 79 25 H 96/50 96 11/12/19 09:00 89 10 L 78/42 96 11/12/19 08:45 81 27 H 79/54 11/12/19 08:30 86 25 H 82/72 96 11/12/19 08:15 84 24 91/60 39 L 11/12/19 08:00 99.8 F H 93 18 96/62 11/12/19 07:45 95 23 11/12/19 07:30 96 18 122/97 97 11/12/19 07:20 99.8 F H 75 18 122/97 98 11/12/19 07:03 96 22 114/73 98 11/12/19 06:54 82 24 104/64 98 11/12/19 06:49 96 22 115/76 98 11/12/19 06:20 86 21 87/54 99 11/12/19 06:15 92 24 78/58 98 11/12/19 05:46 88 24 101/71 91 L 11/12/19 03:35 104 H 27 H 145/66 11/12/19 03:10 99 26 H 118/65 11/12/19 02:30 100.8 F H 153 H 26 H 88/38 Intake and Output 11/11/19 11/12/19 11/12/19 22:59 06:59 14:59 Intake Total 4.289 1073.081 Output Total 0 Balance 4.289 1073.081 Intake: IV 1030 Calcium Gluconate 1 gm In 100 Sodium Chloride 0.9% 100 ml @ 400 mls/hr IVPB ONCE ONE Rx#:[id number] Dextrose 5% in Water 1, 930 000 ml @ 150 mls/hr IV . Q7H40M RUTH with Sodium Bicarb (1 Meq/ml) 150 ml Rx#:[id number] Intake, IV Titration 4.289 43.081 Amount Norepinephrine 32 mg In 4.289 43.081 Sodium Chloride 0.9% 218 ml @ 0.05 MCG/KG/MIN 2. 392 mls/hr IV .Q24H ONE Rx#:[id number] Output: Urine 0 Other: Voiding Method Indwelling Catheter Weight 102.058 kg 102.058 kg ABP, PAP, CO, CI - Last 8 Hours Arterial Blood Pressure 95/33 Arterial Blood Pressure 97/30 Arterial Blood Pressure 94/31 Arterial Blood Pressure 111/34 Arterial Blood Pressure 94/26 General Appearance: Unresponsive mildly overweight laying in bed has ET tube on with no sedation. The patient is calm and comfortable. The patient is not receiving any sedation. She is unresponsive to deep painful stimulation patient does not grimace to pain first admission at this point in time. She is sick rest of the mechanical ventilator. Neck HEENT: Supple, no lymphadenopathy, no thyroid enlargement, no carotid bruits. ET tube in place. Lungs: Decreased breath some bilaterally fine rhonchi mild crackles in the bases positive expiratory wheezes. Chest Wall: Decrease expansion with deep inspiration no tenderness and no deformity was found on exam, no costochondral pain or discomfort. Heart: Irregular rate and rhythm, S1, S2 positive history positive JVD with systolic murmur. Back: Severe scoliosis with mild deformity. Abdomen: Soft slightly distended positive bowel sounds. Extremities: Trace edema with significant arthritis and slight discoloration from the knee down. Dialysis fistula graft in the left forearm. Pulses: Decreased pulse bilaterally. The femoral pulses are obtainable. Skin: Skin color, texture, tugor normal, no rashes or lesions. Neurologic: Unresponsive on mechanical ventilation nor respond to pain stimuli at the time. Pupils are 3 mm in size, very sluggishly reactive to light. No nystagmus. No clonus. No Babinski. Motor function and sensory function cannot be assessed. Reflexes are diminished in lower extremities, adequate in the upper extremities. No facial asymmetry. Results - Laboratory Findings CBC and BMP: 11/12/19 03:18 11/12/19 10:40 ABG ABG pH 7.01 (7.35-7.45) L* 11/12/19 08:42 ABG pCO2 20 mmHg (35-45) L 11/12/19 08:42 ABG pO2 335 mmHg (83-108) H 11/12/19 08:42 ABG O2 Saturation 99.0 % (94-97) H 11/12/19 08:42 PT/INR, D-dimer PT 18.8 sec (9.0-12.0) H 11/12/19 03:18 INR 1.9 (<1.2) H 11/12/19 03:18 Abnormal lab findings: Abnormal Labs 11/12/19 11/12/19 11/12/19 02:36 03:18 03:18 WBC 15.9 H MCHC 28.9 L RDW 21.4 H Neutrophils # (Manual) 10.60 H Monocytes # (Manual) 1.11 H Metamyelocytes # (Man) 0.32 H Nucleated RBCs 1 H PT 18.8 H INR 1.9 H APTT 43.9 H ABG pH ABG pCO2 ABG pO2 ABG HCO3 ABG Total CO2 ABG O2 Saturation VBG pH VBG pCO2 VBG HCO3 Sodium Potassium Carbon Dioxide BUN Creatinine Glucose POC Glucose (mg/dL) <20 L Plasma Lactic Acid Young Calcium Phosphorus Magnesium Ferritin Total Bilirubin AST ALT Alkaline Phosphatase Ammonia Lactate Dehydrogenase Creatine Kinase Troponin I C-Reactive Protein Total Protein Albumin Procalcitonin TSH Urine Appearance Urine Protein Urine Blood Ur Leukocyte Esterase Urine RBC Urine WBC Urine WBC Clumps Calcium Oxalate Crystal Urine Bacteria Hyaline Casts Urine Mucus Urine Yeast (Budding) Stool Occult Blood 11/12/19 11/12/19 11/12/19 03:18 03:18 03:18 WBC MCHC RDW Neutrophils # (Manual) Monocytes # (Manual) Metamyelocytes # (Man) Nucleated RBCs PT INR APTT ABG pH ABG pCO2 ABG pO2 ABG HCO3 ABG Total CO2 ABG O2 Saturation VBG pH VBG pCO2 VBG HCO3 Sodium 133 L Potassium 6.6 H* Carbon Dioxide 11 L BUN 42 H Creatinine 2.80 H Glucose POC Glucose (mg/dL) Plasma Lactic Acid Young 14.4 H* Calcium Phosphorus 11.6 H* Magnesium 3.0 H Ferritin Total Bilirubin 2.2 H AST 7358 H ALT 2046 H Alkaline Phosphatase 394 H Ammonia 315 H Lactate Dehydrogenase Creatine Kinase 2289 H* Troponin I 0.198 H* C-Reactive Protein Total Protein Albumin 2.9 L Procalcitonin TSH 37.700 H Urine Appearance Urine Protein Urine Blood Ur Leukocyte Esterase Urine RBC Urine WBC Urine WBC Clumps Calcium Oxalate Crystal Urine Bacteria Hyaline Casts Urine Mucus Urine Yeast (Budding) Stool Occult Blood 11/12/19 11/12/19 11/12/19 03:18 03:38 05:30 WBC MCHC RDW Neutrophils # (Manual) Monocytes # (Manual) Metamyelocytes # (Man) Nucleated RBCs PT INR APTT ABG pH ABG pCO2 ABG pO2 ABG HCO3 ABG Total CO2 ABG O2 Saturation VBG pH 7.02 L* VBG pCO2 54 H VBG HCO3 13 L Sodium Potassium Carbon Dioxide BUN Creatinine Glucose POC Glucose (mg/dL) Plasma Lactic Acid Young 12.8 H* Calcium Phosphorus Magnesium Ferritin Total Bilirubin AST ALT Alkaline Phosphatase Ammonia Lactate Dehydrogenase Creatine Kinase Troponin I C-Reactive Protein Total Protein Albumin Procalcitonin TSH Urine Appearance Cloudy H Urine Protein Trace H Urine Blood Small H Ur Leukocyte Esterase Large H Urine RBC 10 H Urine WBC 53 H Urine WBC Clumps Few H Calcium Oxalate Crystal Many H Urine Bacteria Occasional H Hyaline Casts 81 H Urine Mucus Occasional H Urine Yeast (Budding) Moderate H Stool Occult Blood 11/12/19 11/12/19 11/12/19 05:30 05:30 05:33 WBC MCHC RDW Neutrophils # (Manual) Monocytes # (Manual) Metamyelocytes # (Man) Nucleated RBCs PT INR APTT ABG pH ABG pCO2 ABG pO2 ABG HCO3 ABG Total CO2 ABG O2 Saturation VBG pH VBG pCO2 VBG HCO3 Sodium Potassium Carbon Dioxide BUN Creatinine Glucose POC Glucose (mg/dL) 25 L Plasma Lactic Acid Young Calcium Phosphorus Magnesium Ferritin 2720.4 H Total Bilirubin AST ALT Alkaline Phosphatase Ammonia Lactate Dehydrogenase >59389 H Creatine Kinase Troponin I C-Reactive Protein 17.2 H Total Protein Albumin Procalcitonin 2.65 H TSH Urine Appearance Urine Protein Urine Blood Ur Leukocyte Esterase Urine RBC Urine WBC Urine WBC Clumps Calcium Oxalate Crystal Urine Bacteria Hyaline Casts Urine Mucus Urine Yeast (Budding) Stool Occult Blood 11/12/19 11/12/19 11/12/19 07:06 07:59 08:18 WBC MCHC RDW Neutrophils # (Manual) Monocytes # (Manual) Metamyelocytes # (Man) Nucleated RBCs PT INR APTT ABG pH ABG pCO2 ABG pO2 ABG HCO3 ABG Total CO2 ABG O2 Saturation VBG pH VBG pCO2 VBG HCO3 Sodium 135 L Potassium 6.7 H* Carbon Dioxide 8 L* BUN 38 H Creatinine 2.88 H Glucose 56 L POC Glucose (mg/dL) 59 L Plasma Lactic Acid Young Calcium 7.5 L Phosphorus Magnesium Ferritin Total Bilirubin 1.8 H AST >84250 H ALT 5142 H Alkaline Phosphatase 422 H Ammonia Lactate Dehydrogenase Creatine Kinase Troponin I C-Reactive Protein Total Protein 6.1 L Albumin 2.3 L Procalcitonin TSH Urine Appearance Urine Protein Urine Blood Ur Leukocyte Esterase Urine RBC Urine WBC Urine WBC Clumps Calcium Oxalate Crystal Urine Bacteria Hyaline Casts Urine Mucus Urine Yeast (Budding) Stool Occult Blood Positive H 11/12/19 11/12/19 11/12/19 08:42 09:23 10:40 WBC MCHC RDW Neutrophils # (Manual) Monocytes # (Manual) Metamyelocytes # (Man) Nucleated RBCs PT INR APTT ABG pH 7.01 L* ABG pCO2 20 L ABG pO2 335 H ABG HCO3 5 L* ABG Total CO2 6 L ABG O2 Saturation 99.0 H VBG pH VBG pCO2 VBG HCO3 Sodium 135 L Potassium 6.1 H* Carbon Dioxide 8 L* BUN 39 H Creatinine 2.87 H Glucose 142 H POC Glucose (mg/dL) 230 H Plasma Lactic Acid Young Calcium 8.3 L Phosphorus Magnesium Ferritin Total Bilirubin 1.6 H AST >47889 H ALT 6714 H Alkaline Phosphatase 494 H Ammonia Lactate Dehydrogenase Creatine Kinase Troponin I C-Reactive Protein Total Protein 6.0 L Albumin 2.3 L Procalcitonin TSH Urine Appearance Urine Protein Urine Blood Ur Leukocyte Esterase Urine RBC Urine WBC Urine WBC Clumps Calcium Oxalate Crystal Urine Bacteria Hyaline Casts Urine Mucus Urine Yeast (Budding) Stool Occult Blood 11/12/19 11/12/19 10:40 12:22 WBC MCHC RDW Neutrophils # (Manual) Monocytes # (Manual) Metamyelocytes # (Man) Nucleated RBCs PT INR APTT ABG pH ABG pCO2 ABG pO2 ABG HCO3 ABG Total CO2 ABG O2 Saturation VBG pH VBG pCO2 VBG HCO3 Sodium Potassium Carbon Dioxide BUN Creatinine Glucose POC Glucose (mg/dL) 174 H Plasma Lactic Acid Young 18.9 H* Calcium Phosphorus Magnesium Ferritin Total Bilirubin AST ALT Alkaline Phosphatase Ammonia 236 H Lactate Dehydrogenase Creatine Kinase Troponin I C-Reactive Protein Total Protein Albumin Procalcitonin TSH Urine Appearance Urine Protein Urine Blood Ur Leukocyte Esterase Urine RBC Urine WBC Urine WBC Clumps Calcium Oxalate Crystal Urine Bacteria Hyaline Casts Urine Mucus Urine Yeast (Budding) Stool Occult Blood - Diagnostic Findings Chest x-ray: image reviewed Assessment and Plan Plan: 1 shock with multisystem organ failure, consider septic shock and the patient is quite hypotensive on high-dose pressors in the form of norepinephrine infusion running at 16 g per minute for hemodynamic support. Covered with broad- spectrum antibiotics. 2 acute on chronic kidney disease. The patient's creatinine is up to 2.8 and he has a component of severe anion gap metabolic acidosis. 3 acute hyperkalemia 4 severe lactic acidosis with anion gap metabolic acidosis 5 recurrent UTIs treated recently for an E. coli UTI on 10/25/2019 6 chronic atrial fibrillation with RVR at time of presentation, currently off the Cardizem drip 7 coronary artery disease with previous bypass surgery 8 shock liver with significant elevation of the LFTs and coagulopathy and elevation in the ammonia level 9 diabetes mellitus type 2, hypoglycemic at time of admission probably due to shock liver 10 history of hypertension 11 history of hypothyroidism, TSH is elevated, could be related to pressors and critically care illness. 12 chronic depression maintained on Cymbalta 13 chronic back pain 14 chronic pain syndrome 15 presented on the function with a component of secondary pulmonary hypert ension moderate elevation in the PA pressures Plan Condition is extremity critical. Continue ventilator support Continue bicarb infusion Continue pressors maintaining norepinephrine infusion and titrate the dose and discontinue the Cardizem drip Continue current antibiotic coverage and cultures of been sent Treatment of hyperkalemia as stated earlier. Potassium level remains elevated and the patient continues to have severe metabolic acidosis and lactic acidosis. Consider slow low efficiency dialysis Monitor blood sugar No need for sedation for now as the patient is unresponsive due to above- mentioned comorbidities We'll continue to follow. Code status is full. High mortality risk based on above-mentioned comorbidities.
--- NOTE | 2019-11-12 14:05 | P.PCN ---
Date of Procedure: 11/12/19 Preoperative Diagnosis: Septic shock Postoperative Diagnosis: Septic shock Procedure(s) Performed: Insertion of an arterial line Anesthesia: local Surgeon: Janice Thompson Estimated Blood Loss (ml): 0 Pathology: none sent Condition: critical Disposition: ICU Description of Procedure: Indication: Hemodynamic monitoring. A time-out was completed verifying correct patient, procedure, site, positioning, and implant(s) or special equipment if applicable. Arterial pulse was checked was performed to ensure adequate perfusion. The patients left groin was prepped and draped in sterile fashion. 1% Lidocaine was used to anesthetize the area. An 18G Arrow arterial line was introduced into the left femoral artery. The catheter was threaded over the guide wire and the needle was removed with appropriate pulsatile blood return. Blood loss was minimal. The catheter was then sutured in place to the skin and a sterile dressing applied. Perfusion to the extremity distal to the point of catheter insertion was checked and found to be adequate. The patient tolerated the procedure well and there were no complications.
[2019-11-12] MEDS ORDERED: PIPERACILLIN-TAZOBACTAM 3.375 GM in SODIUM CHLORIDE 0.9% 100 ML IVPB SCH (15:00)
[2019-11-12] MEDS ORDERED: DEXTROSE 5% IN WATER 100 ML with AMIODARONE 150 MG IV ONE ×2 (15:00→19:15)
[2019-11-12] MEDS ORDERED: SODIUM CHLORIDE 0.9% 150 ML with VASOPRESSIN 60 UNIT IV SCH ×2 (15:00)
[2019-11-12] MEDS ORDERED: AMIODARONE 360 MG in DEXTROSE 5% IN WATER 200 ML IV ONE ×2 (15:15)
[2019-11-12] MEDS: IPRATROPIUM-ALBUTEROL 3 ML NEB INHALATION PRN ×2 (15:40→19:28)
[2019-11-12 16:34] LABS: ABG Base Excess -20.8 mmol/L; ABG Oxygen Saturation 94.2 % (94-97); ABG PCO2 29 mmHg (35-45); ABG PO2 94 mmHg (83-108); ABG TCO2 10 mmol/L (19-24); Allen Test Performed? Yes
[2019-11-12 16:37] LABS: Glucose,Whole Blood 81 mg/dL (75-99)
[2019-11-12 16:39] LABS: ABG HCO3 9 mmol/L (21-25)
[2019-11-12 18:53] LABS: African American GFR (CKD) 21 (>60 ml/min/1.73 sqM); Alkaline Phosphatase 554 U/L (38-126); Blood Urea Nitrogen 20 mg/dL (7-17); Calcium 7.3 mg/dL (8.4-10.2); Chloride 101 mmol/L (98-107); Glucose 116 mg/dL (74-99); Non-African American GFR(CKD) 18 (>60 ml/min/1.73 sqM); Sodium 139 mmol/L (137-145); Total Bilirubin 1.7 mg/dL (0.2-1.3); Total Protein 5.3 g/dL (6.3-8.2)
[2019-11-12 19:11] LABS: Potassium 6.1 mmol/L (3.5-5.1)
[2019-11-12 19:12] LABS: Carbon Dioxide <5 mmol/L (22-30)
[2019-11-12 19:17] LABS: Glucose,Whole Blood 120 mg/dL (75-99)
[2019-11-12 19:18] LABS: ABG Base Excess -21.8 mmol/L; ABG Oxygen Saturation 97.7 % (94-97); ABG PCO2 23 mmHg (35-45); ABG PO2 120 mmHg (83-108); ABG TCO2 8 mmol/L (19-24); Allen Test Performed? Yes
[2019-11-12 19:23] LABS: ABG HCO3 8 mmol/L (21-25); ABG PH 7.12 (7.35-7.45)
[2019-11-12 19:27] LABS: ALT 6960 U/L (4-34)
[2019-11-12 19:49] LABS: AST >15000 U/L (14-36)
[2019-11-12] MEDS ORDERED: CHLORHEXIDINE GLUCONATE 15 ML CUP MUCOUS MEM SCH (21:00)
[2019-11-12] MEDS ORDERED: EPINEPHrine 10 ML SYRINGE (0.1 MG/ML) ONE (21:13)
[2019-11-12] MEDS ORDERED: SODIUM BICARB 8.4% 50 ML SYR (1 MEQ/ML) ONE (21:13)
[2019-11-12] MEDS ORDERED: CALCIUM CHLORIDE 100 MG/ML 10 ML SYRINGE ONE (21:13)
[2019-11-12] MEDS ORDERED: AMIODARONE 300 MG in DEXTROSE 5% IN WATER 250 ML IV SCH ×2 (21:15)
--- NOTE | 2019-11-12 21:43 | P.PN ---
Progress Note - Text Progress Note Date: 11/12/19 Code Solo Team Note Code solo activated at 2112. Arrived on the scene shortly after. The patient was undergoing CPR. Reviewed case with RN and reviewed patient's chart. The patient received Epi bolus x 3, sodium bicarb x 1, and calcium chloride x 1. She also was shocked once for V-fib with 200J. The patient had ROSC @ 2125. The patient's primary attending and bookstore clerk were notified. The patient continues to be on bicarbonate infusion, amiodarone, and multiple IV pressors. Please refer to code-sheet for more details.
[2019-11-12 22:33] VITALS: PULSE 59; RESP 28; TEMP 95.2
[2019-11-12 22:35] VITALS: BP 86/21
--- NOTE | 2019-11-13 00:37 | P.CONS ---
History of Present Illness - Reason for Consult Consult date: 11/12/19 Sepsis and bacteremia Requesting physician: Lam Tovar - Chief Complaint Unresponsive x one day - History of Present Illness Patient is a 74-year-old female with a past medical history significant for recurrent urinary tract infection recently admitted to this [facility] and treated for UTI patient also have a chronic renal insufficiency requiring hemodialysis on time for this patient did have left arm AV fistula patient is a resident of a local residential patient was found to be unresponsive the day of presentation to the hospital and patient was brought i nto the ER by the EMS on arrival to the hospital the patient did have low-grade fever 100.8 patient did have elevated white count of 15,000 brothers have elevated progression and noticed to be acidotic patient to 6 was mostly suspicious for CHF pattern patient had been intubated because of respiratory distress on admission had no significant purulent secretions in the ED or any diarrhea patient is currently on pressor support in the form of Levophed and is also on a waiting for underlying A. fib with RVR patient is being treated with the Zosyn and vancomycin and infectious disease was consulted for further management of antibiotic therapy most information has been obtained from review the chart on was asked of his the patient's currently intubated on white and is unable to provide any family history patient also have a left greater pressure ulcer aren't mentioned no significant redness or drainage, I was not able examined the wound because the patient was undergoing dialysis Review of Systems Positive points has been mentioned in HPI complete review could not be obtained because of his underlying mental status Past Medical History Past Medical History: Atrial Fibrillation, Coronary Artery Disease (CAD), Heart Failure, Diabetes Mellitus, Deep Vein Thrombosis (DVT), Hyperlipidemia, Hypertension, Renal Disease, Thyroid Disorder Additional Past Medical History / Comment(s): neuropathy,lupus, back pain, BACK WOUND-Healed, USES CANE , CATARACT bilat. 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 triple bypass 2000, CATARACT bilat EYE 11/2016, LUE dialysis port. 5 back sx. pt had 2 ablations in [place] for afib- unsuccessful. left arm fistula. Past Anesthesia/Blood Transfusion Reactions: No Reported Reaction Additional Past Anesthesia/Blood Transfusion Reaction / Comm: CLAUSTROPHOBIA. HAD A BLOOD TRANSFUSION 1968-NO REACTION. Type of Cardiac Device: Permanent Pacemaker Device Placement Date:: january 2018 Past Psychological History: No Psychological Hx Reported Smoking Status: Former smoker Past Alcohol Use History: None Reported Past Drug Use History: None Reported - Past Family History Father Family Medical History: Cancer Additional Family Medical History / Comment(s): prostate cancer Mother Family Medical History: Cancer, Congestive Heart Failure (CHF), Diabetes Mellitus, Hyperlipidemia, Hypertension, Osteoarthritis (OA) Additional Family Medical History / Comment(s): colon cancer Brother(s) Family Medical History: Coronary Artery Disease (CAD), Deep Vein Thrombosis (DVT) Additional Family Medical History / Comment(s): back surgery Sister(s) Family Medical History: Hyperlipidemia Additional Family Medical History / Comment(s): thyroid cancer Medications and Allergies Home Medications Medication Instructions Recorded Confirmed Type Insulin NPL/Insulin Lispro 10 unit SQ TID-W/MEALS 12/03/16 11/12/19 History [humaLOG MIX 75-25 VIAL] Aspirin EC [Ecotrin Low Dose] 81 mg PO DAILY@0900 09/09/18 11/12/19 History Nitroglycerin Sl Tabs [Nitrostat] 0.4 mg SUBLINGUAL Q5M PRN #50 tab 01/27/19 11/12/19 Rx Pantoprazole Sodium [Protonix] 40 mg PO BID@0900,209905/08/19 11/12/19 History Baclofen 10 mg PO BID PRN #10 09/05/19 11/12/19 Rx Acetaminophen Tab [Tylenol] 650 mg PO Q4H PRN 10/25/19 11/12/19 History Atorvastatin [Lipitor] 80 mg PO HS@209910/25/19 11/12/19 History DULoxetine HCL [Cymbalta] 30 mg PO BID@0900,209910/25/19 11/12/19 History Ferrous Sulfate [Iron] 325 mg PO TID@0900,1300,209910/25/19 11/12/19 History Isosorbide Mononitrate ER [Imdur] 30 mg PO DAILY@0900 10/25/19 11/12/19 History Metoprolol Tartrate [Lopressor] 25 mg PO BID@0900,2100 10/25/19 06/26/20 History Bumetanide [BUMEX] 2 mg PO DAILY #0 10/28/19 11/12/19 Rx Ipratropium-Albuterol Nebulize 3 ml INHALATION RT-TID #0 ml 10/28/19 11/12/19 Rx [Duoneb 0.5 mg-3 mg/3 ml Soln] Pregabalin [Lyrica] 75 mg PO HS@2100 #3 cap 10/28/19 11/12/19 Rx traMADol HCL [Ultram] 50 mg PO BID PRN #6 tab 10/28/19 11/12/19 Rx Collagenase [Santyl] 1 applic TOPICAL DAILY PRN 11/12/19 11/12/19 History Collagenase [Santyl] 1 applic TOPICAL HS 11/12/19 11/12/19 History Lactose-Reduced Food [Ensure Plus] 120 ml PO TID@1000,1400,199911/12/19 11/12/19 History Levothyroxine Sodium [Synthroid] 100 mcg PO DAILY@59911/12/19 11/12/19 History Lidocaine 5% Patch [Lidoderm 5% 1 patch TOPICAL DAILY@59911/12/19 11/12/19 History Patch] Menthol [Biofreeze] 1 applic TOPICAL BID 11/12/19 11/12/19 History predniSONE See Taper PO DAILY 11/12/19 11/12/19 History Allergies Allergy/AdvReac Type Severity Reaction Status Date / Time No Known Allergies Allergy Verified 11/12/19 06:06 Physical Exam Vitals: Vital Signs Temp Pulse Pulse Pulse Resp BP BP 11/12/19 21:45 59 L 28 H 11/12/19 21:30 60 28 H 11/12/19 21:15 30 L 28 H 86/21 11/12/19 21:00 60 28 H 11/12/19 20:45 60 28 H 11/12/19 20:30 60 28 H 11/12/19 20:15 95.2 F L 110 H 28 H 11/12/19 20:00 110 H 19 76/41 11/12/19 19:53 84 11/12/19 19:45 95 27 H 11/12/19 19:30 72 27 H 93/45 11/12/19 19:28 76 11/12/19 19:15 104 H 9 L 93/45 11/12/19 19:00 112 H 27 H 91/36 11/12/19 18:45 80 26 H 91/36 11/12/19 18:30 88 4 L 91/36 11/12/19 18:15 86 4 L 91/36 11/12/19 18:00 103 H 18 92/74 11/12/19 17:45 92 20 92/74 11/12/19 17:30 112 H 20 92/74 11/12/19 17:15 112 H 18 92/74 11/12/19 17:00 92 17 112/46 11/12/19 16:45 93 8 L 112/46 11/12/19 16:30 95 19 112/46 11/12/19 16:15 98 29 H 112/46 11/12/19 16:01 95.0 F L 101 H 23 95/38 11/12/19 16:00 95.6 F L 97 30 H 217/167 11/12/19 15:45 121 H 10 L 217/167 11/12/19 15:41 108 H 11/12/19 15:30 135 H 26 H 11/12/19 15:15 149 H 28 H 11/12/19 15:00 121 H 27 H 11/12/19 14:45 110 H 22 11/12/19 14:30 130 H 25 H 11/12/19 14:15 126 H 23 11/12/19 14:00 128 H 24 96/53 11/12/19 13:45 105 H 23 96/53 11/12/19 13:30 96 24 96/53 11/12/19 13:15 86 96/53 11/12/19 13:00 75 81/56 11/12/19 12:45 82 23 81/56 11/12/19 12:30 77 24 81/56 11/12/19 12:15 84 22 81/56 11/12/19 12:00 81 22 67/37 11/12/19 11:45 77 23 85/69 11/12/19 11:30 70 14 145/135 11/12/19 11:15 79 25 H 120/108 11/12/19 11:00 77 25 H 125/110 11/12/19 10:45 70 23 121/97 11/12/19 10:30 73 24 87/54 11/12/19 10:15 73 24 133/55 11/12/19 10:00 70 24 130/45 11/12/19 09:45 76 24 111/78 11/12/19 09:30 78 24 70/44 11/12/19 09:15 79 25 H 96/50 11/12/19 09:00 89 10 L 78/42 11/12/19 08:45 81 27 H 79/54 11/12/19 08:30 86 25 H 82/72 11/12/19 08:15 84 24 91/60 11/12/19 08:00 99.8 F H 93 24 96/62 11/12/19 07:45 95 23 11/12/19 07:30 96 18 122/97 11/12/19 07:20 99.8 F H 75 18 122/97 11/12/19 07:03 96 22 114/73 11/12/19 06:54 82 24 104/64 11/12/19 06:49 96 22 115/76 11/12/19 06:20 86 21 87/54 11/12/19 06:15 92 24 78/58 11/12/19 05:46 88 24 101/71 11/12/19 03:35 104 H 27 H 145/66 11/12/19 03:10 99 26 H 118/65 11/12/19 02:30 100.8 F H 153 H 26 H 88/38 Pulse Ox 11/12/19 21:45 81 L 11/12/19 21:30 81 L 11/12/19 21:15 86 L 11/12/19 21:00 90 L 11/12/19 20:45 90 L 11/12/19 20:30 91 L 11/12/19 20:15 92 L 11/12/19 20:00 94 L 11/12/19 19:53 11/12/19 19:45 90 L 11/12/19 19:30 11/12/19 19:28 11/12/19 19:15 11/12/19 19:00 11/12/19 18:45 11/12/19 18:30 11/12/19 18:15 11/12/19 18:00 11/12/19 17:45 11/12/19 17:30 11/12/19 17:15 11/12/19 17:00 92 L 11/12/19 16:45 11/12/19 16:30 11/12/19 16:15 11/12/19 16:01 11/12/19 16:00 93 L 11/12/19 15:45 11/12/19 15:41 11/12/19 15:30 11/12/19 15:15 11/12/19 15:00 99 11/12/19 14:45 97 11/12/19 14:30 11/12/19 14:15 93 L 11/12/19 14:00 11/12/19 13:45 11/12/19 13:30 98 11/12/19 13:15 98 11/12/19 13:00 96 11/12/19 12:45 95 11/12/19 12:30 95 11/12/19 12:15 97 11/12/19 12:00 97 11/12/19 11:45 96 11/12/19 11:30 11/12/19 11:15 94 L 11/12/19 11:00 94 L 11/12/19 10:45 95 11/12/19 10:30 95 11/12/19 10:15 95 11/12/19 10:00 95 11/12/19 09:45 96 11/12/19 09:30 97 11/12/19 09:15 96 11/12/19 09:00 96 11/12/19 08:45 11/12/19 08:30 96 11/12/19 08:15 39 L 11/12/19 08:00 11/12/19 07:45 11/12/19 07:30 97 11/12/19 07:20 98 11/12/19 07:03 98 11/12/19 06:54 98 11/12/19 06:49 98 11/12/19 06:20 99 11/12/19 06:15 98 11/12/19 05:46 91 L 11/12/19 03:35 11/12/19 03:10 11/12/19 02:30 Intake and Output 11/12/19 11/12/19 11/13/19 14:59 22:59 06:59 Intake Total 6371.350 0684.118 Output Total 0 0 Balance 4797.154 5177.118 Intake: IV 1180 1200 Calcium Gluconate 1 gm In 100 Sodium Chloride 0.9% 100 ml @ 400 mls/hr IVPB ONCE ONE Rx#:[id number] Dextrose 5% in Water 1, 1080 1200 000 ml @ 150 mls/hr IV . Q7H40M RUTH with Sodium Bicarb (1 Meq/ml) 150 ml Rx#:[id number] Intake, IV Titration 57.592 156.118 Amount Norepinephrine 32 mg In 57.592 156.118 Sodium Chloride 0.9% 218 ml @ 0.05 MCG/KG/MIN 2. 392 mls/hr IV .Q24H ONE Rx#:[id number] Output: Urine 0 0 Hemodialysis 0 Other: Voiding Method Indwelling Catheter Indwelling Catheter Weight 102.058 kg ABP, PAP, CO, CI - Last 8 Hours Arterial Blood Pressure 64/0 Arterial Blood Pressure 79/5 Arterial Blood Pressure 94/24 Arterial Blood Pressure 52/27 Arterial Blood Pressure 60/31 Arterial Blood Pressure 70/35 Arterial Blood Pressure 47/25 Arterial Blood Pressure 45/26 Arterial Blood Pressure 65/31 Arterial Blood Pressure 78/37 Arterial Blood Pressure 57/31 Arterial Blood Pressure 70/36 Arterial Blood Pressure 89/38 Arterial Blood Pressure 86/41 Arterial Blood Pressure 78/41 Arterial Blood Pressure 82/41 Arterial Blood Pressure 84/42 Arterial Blood Pressure 108/43 Arterial Blood Pressure 144/45 Arterial Blood Pressure 156/43 GENERAL DESCRIPTION: An elderly female intubated on the vent No tachypnea or accessory muscle of respiration use. HEENT: Shows Pallor , no scleral icterus. Oral mucous membrane is dry. Patient is orally intubated NECK: Trachea central, no thyromegaly. LUNGS: Unlabored breathing. Decreased breath sounds at the base. No wheeze or crackle. HEART: S1, S2, regular rate and rhythm. No loud murmur ABDOMEN: Soft, no tenderness , guarding or rigidity, no organomegaly EXTREMITIES: No edema of feet. SKIN: No rash, no masses palpable. NEUROLOGICAL: The patient is sedated on the vent Results CBC & Chem 7: 11/12/19 03:18 11/12/19 18:29 Labs: Abnormal Lab Results - Last 24 Hours (Table) 11/12/19 11/12/19 11/12/19 Range/Units 02:36 03:18 03:18 WBC 15.9 H (3.8-10.6) k/uL MCHC 28.9 L (31.0-37.0) g/dL RDW 21.4 H (11.5-15.5) % Neutrophils # (Manual) 10.60 H (1.3-7.7) k/uL Monocytes # (Manual) 1.11 H (0-1.0) k/uL Metamyelocytes # (Man) 0.32 H (0) k/uL Nucleated RBCs 1 H (0-0) /100 WBC PT 18.8 H (9.0-12.0) sec INR 1.9 H (<1.2) APTT 43.9 H (22.0-30.0) sec ABG pH (7.35-7.45) ABG pCO2 (35-45) mmHg ABG pO2 (83-108) mmHg ABG HCO3 (21-25) mmol/L ABG Total CO2 (19-24) mmol/L ABG O2 Saturation (94-97) % VBG pH (7.31-7.41) VBG pCO2 (37-51) mmHg VBG HCO3 (24-28) mmol/L Sodium (137-145) mmol/L Potassium (3.5-5.1) mmol/L Carbon Dioxide (22-30) mmol/L BUN (7-17) mg/dL Creatinine (0.52-1.04) mg/dL Glucose (74-99) mg/dL POC Glucose (mg/dL) <20 L (75-99) mg/dL Plasma Lactic Acid Young (0.7-2.0) mmol/L Calcium (8.4-10.2) mg/dL Phosphorus (2.5-4.5) mg/dL Magnesium (1.6-2.3) mg/dL Ferritin (10.0-291.0) ng/mL Total Bilirubin (0.2-1.3) mg/dL AST (14-36) U/L ALT (4-34) U/L Alkaline Phosphatase (38-126) U/L Ammonia (<30) umol/L Lactate Dehydrogenase (313-618) U/L Creatine Kinase (30-135) U/L Troponin I (0.000-0.034) ng/mL C-Reactive Protein (<10.0) mg/L Total Protein (6.3-8.2) g/dL Albumin (3.5-5.0) g/dL Procalcitonin (0.02-0.09) ng/mL TSH (0.465-4.680) mIU/L Urine Appearance (Clear) Urine Protein (Negative) Urine Blood (Negative) Ur Leukocyte Esterase (Negative) Urine RBC (0-5) /hpf Urine WBC (0-5) /hpf Urine WBC Clumps (None) /hpf Calcium Oxalate Crystal (None) /hpf Urine Bacteria (None) /hpf Hyaline Casts (0-2) /lpf Urine Mucus (None) /hpf Urine Yeast (Budding) (None) /hpf Stool Occult Blood (Negative) 11/12/19 11/12/19 11/12/19 Range/Units 03:18 03:18 03:18 WBC (3.8-10.6) k/uL MCHC (31.0-37.0) g/dL RDW (11.5-15.5) % Neutrophils # (Manual) (1.3-7.7) k/uL Monocytes # (Manual) (0-1.0) k/uL Metamyelocytes # (Man) (0) k/uL Nucleated RBCs (0-0) /100 WBC PT (9.0-12.0) sec INR (<1.2) APTT (22.0-30.0) sec ABG pH (7.35-7.45) ABG pCO2 (35-45) mmHg ABG pO2 (83-108) mmHg ABG HCO3 (21-25) mmol/L ABG Total CO2 (19-24) mmol/L ABG O2 Saturation (94-97) % VBG pH (7.31-7.41) VBG pCO2 (37-51) mmHg VBG HCO3 (24-28) mmol/L Sodium 133 L (137-145) mmol/L Potassium 6.6 H* (3.5-5.1) mmol/L Carbon Dioxide 11 L (22-30) mmol/L BUN 42 H (7-17) mg/dL Creatinine 2.80 H (0.52-1.04) mg/dL Glucose (74-99) mg/dL POC Glucose (mg/dL) (75-99) mg/dL Plasma Lactic Acid Young 14.4 H* (0.7-2.0) mmol/L Calcium (8.4-10.2) mg/dL Phosphorus 11.6 H* (2.5-4.5) mg/dL Magnesium 3.0 H (1.6-2.3) mg/dL Ferritin (10.0-291.0) ng/mL Total Bilirubin 2.2 H (0.2-1.3) mg/dL AST 7358 H (14-36) U/L ALT 2046 H (4-34) U/L Alkaline Phosphatase 394 H (38-126) U/L Ammonia 315 H (<30) umol/L Lactate Dehydrogenase (313-618) U/L Creatine Kinase 2289 H* (30-135) U/L Troponin I 0.198 H* (0.000-0.034) ng/mL C-Reactive Protein (<10.0) mg/L Total Protein (6.3-8.2) g/dL Albumin 2.9 L (3.5-5.0) g/dL Procalcitonin (0.02-0.09) ng/mL TSH 37.700 H (0.465-4.680) mIU/L Urine Appearance (Clear) Urine Protein (Negative) Urine Blood (Negative) Ur Leukocyte Esterase (Negative) Urine RBC (0-5) /hpf Urine WBC (0-5) /hpf Urine WBC Clumps (None) /hpf Calcium Oxalate Crystal (None) /hpf Urine Bacteria (None) /hpf Hyaline Casts (0-2) /lpf Urine Mucus (None) /hpf Urine Yeast (Budding) (None) /hpf Stool Occult Blood (Negative) 11/12/19 11/12/19 11/12/19 Range/Units 03:18 03:38 05:30 WBC (3.8-10.6) k/uL MCHC (31.0-37.0) g/dL RDW (11.5-15.5) % Neutrophils # (Manual) (1.3-7.7) k/uL Monocytes # (Manual) (0-1.0) k/uL Metamyelocytes # (Man) (0) k/uL Nucleated RBCs (0-0) /100 WBC PT (9.0-12.0) sec INR (<1.2) APTT (22.0-30.0) sec ABG pH (7.35-7.45) ABG pCO2 (35-45) mmHg ABG pO2 (83-108) mmHg ABG HCO3 (21-25) mmol/L ABG Total CO2 (19-24) mmol/L ABG O2 Saturation (94-97) % VBG pH 7.02 L* (7.31-7.41) VBG pCO2 54 H (37-51) mmHg VBG HCO3 13 L (24-28) mmol/L Sodium (137-145) mmol/L Potassium (3.5-5.1) mmol/L Carbon Dioxide (22-30) mmol/L BUN (7-17) mg/dL Creatinine (0.52-1.04) mg/dL Glucose (74-99) mg/dL POC Glucose (mg/dL) (75-99) mg/dL Plasma Lactic Acid Young 12.8 H* (0.7-2.0) mmol/L Calcium (8.4-10.2) mg/dL Phosphorus (2.5-4.5) mg/dL Magnesium (1.6-2.3) mg/dL Ferritin (10.0-291.0) ng/mL Total Bilirubin (0.2-1.3) mg/dL AST (14-36) U/L ALT (4-34) U/L Alkaline Phosphatase (38-126) U/L Ammonia (<30) umol/L Lactate Dehydrogenase (313-618) U/L Creatine Kinase (30-135) U/L Troponin I (0.000-0.034) ng/mL C-Reactive Protein (<10.0) mg/L Total Protein (6.3-8.2) g/dL Albumin (3.5-5.0) g/dL Procalcitonin (0.02-0.09) ng/mL TSH (0.465-4.680) mIU/L Urine Appearance Cloudy H (Clear) Urine Protein Trace H (Negative) Urine Blood Small H (Negative) Ur Leukocyte Esterase Large H (Negative) Urine RBC 10 H (0-5) /hpf Urine WBC 53 H (0-5) /hpf Urine WBC Clumps Few H (None) /hpf Calcium Oxalate Crystal Many H (None) /hpf Urine Bacteria Occasional H (None) /hpf Hyaline Casts 81 H (0-2) /lpf Urine Mucus Occasional H (None) /hpf Urine Yeast (Budding) Moderate H (None) /hpf Stool Occult Blood (Negative) 11/12/19 11/12/19 11/12/19 Range/Units 05:30 05:30 05:33 WBC (3.8-10.6) k/uL MCHC (31.0-37.0) g/dL RDW (11.5-15.5) % Neutrophils # (Manual) (1.3-7.7) k/uL Monocytes # (Manual) (0-1.0) k/uL Metamyelocytes # (Man) (0) k/uL Nucleated RBCs (0-0) /100 WBC PT (9.0-12.0) sec INR (<1.2) APTT (22.0-30.0) sec ABG pH (7.35-7.45) ABG pCO2 (35-45) mmHg ABG pO2 (83-108) mmHg ABG HCO3 (21-25) mmol/L ABG Total CO2 (19-24) mmol/L ABG O2 Saturation (94-97) % VBG pH (7.31-7.41) VBG pCO2 (37-51) mmHg VBG HCO3 (24-28) mmol/L Sodium (137-145) mmol/L Potassium (3.5-5.1) mmol/L Carbon Dioxide (22-30) mmol/L BUN (7-17) mg/dL Creatinine (0.52-1.04) mg/dL Glucose (74-99) mg/dL POC Glucose (mg/dL) 25 L (75-99) mg/dL Plasma Lactic Acid Young (0.7-2.0) mmol/L Calcium (8.4-10.2) mg/dL Phosphorus (2.5-4.5) mg/dL Magnesium (1.6-2.3) mg/dL Ferritin 2720.4 H (10.0-291.0) ng/mL Total Bilirubin (0.2-1.3) mg/dL AST (14-36) U/L ALT (4-34) U/L Alkaline Phosphatase (38-126) U/L Ammonia (<30) umol/L Lactate Dehydrogenase >84434 H (313-618) U/L Creatine Kinase (30-135) U/L Troponin I (0.000-0.034) ng/mL C-Reactive Protein 17.2 H (<10.0) mg/L Total Protein (6.3-8.2) g/dL Albumin (3.5-5.0) g/dL Procalcitonin 2.65 H (0.02-0.09) ng/mL TSH (0.465-4.680) mIU/L Urine Appearance (Clear) Urine Protein (Negative) Urine Blood (Negative) Ur Leukocyte Esterase (Negative) Urine RBC (0-5) /hpf Urine WBC (0-5) /hpf Urine WBC Clumps (None) /hpf Calcium Oxalate Crystal (None) /hpf Urine Bacteria (None) /hpf Hyaline Casts (0-2) /lpf Urine Mucus (None) /hpf Urine Yeast (Budding) (None) /hpf Stool Occult Blood (Negative) 11/12/19 11/12/19 11/12/19 Range/Units 07:06 07:59 08:18 WBC (3.8-10.6) k/uL MCHC (31.0-37.0) g/dL RDW (11.5-15.5) % Neutrophils # (Manual) (1.3-7.7) k/uL Monocytes # (Manual) (0-1.0) k/uL Metamyelocytes # (Man) (0) k/uL Nucleated RBCs (0-0) /100 WBC PT (9.0-12.0) sec INR (<1.2) APTT (22.0-30.0) sec ABG pH (7.35-7.45) ABG pCO2 (35-45) mmHg ABG pO2 (83-108) mmHg ABG HCO3 (21-25) mmol/L ABG Total CO2 (19-24) mmol/L ABG O2 Saturation (94-97) % VBG pH (7.31-7.41) VBG pCO2 (37-51) mmHg VBG HCO3 (24-28) mmol/L Sodium 135 L (137-145) mmol/L Potassium 6.7 H* (3.5-5.1) mmol/L Carbon Dioxide 8 L* (22-30) mmol/L BUN 38 H (7-17) mg/dL Creatinine 2.88 H (0.52-1.04) mg/dL Glucose 56 L (74-99) mg/dL POC Glucose (mg/dL) 59 L (75-99) mg/dL Plasma Lactic Acid Young (0.7-2.0) mmol/L Calcium 7.5 L (8.4-10.2) mg/dL Phosphorus (2.5-4.5) mg/dL Magnesium (1.6-2.3) mg/dL Ferritin (10.0-291.0) ng/mL Total Bilirubin 1.8 H (0.2-1.3) mg/dL AST >90954 H (14-36) U/L ALT 5142 H (4-34) U/L Alkaline Phosphatase 422 H (38-126) U/L Ammonia (<30) umol/L Lactate Dehydrogenase (313-618) U/L Creatine Kinase (30-135) U/L Troponin I (0.000-0.034) ng/mL C-Reactive Protein (<10.0) mg/L Total Protein 6.1 L (6.3-8.2) g/dL Albumin 2.3 L (3.5-5.0) g/dL Procalcitonin (0.02-0.09) ng/mL TSH (0.465-4.680) mIU/L Urine Appearance (Clear) Urine Protein (Negative) Urine Blood (Negative) Ur Leukocyte Esterase (Negative) Urine RBC (0-5) /hpf Urine WBC (0-5) /hpf Urine WBC Clumps (None) /hpf Calcium Oxalate Crystal (None) /hpf Urine Bacteria (None) /hpf Hyaline Casts (0-2) /lpf Urine Mucus (None) /hpf Urine Yeast (Budding) (None) /hpf Stool Occult Blood Positive H (Negative) 11/12/19 11/12/19 11/12/19 Range/Units 08:42 09:23 10:40 WBC (3.8-10.6) k/uL MCHC (31.0-37.0) g/dL RDW (11.5-15.5) % Neutrophils # (Manual) (1.3-7.7) k/uL Monocytes # (Manual) (0-1.0) k/uL Metamyelocytes # (Man) (0) k/uL Nucleated RBCs (0-0) /100 WBC PT (9.0-12.0) sec INR (<1.2) APTT (22.0-30.0) sec ABG pH 7.01 L* (7.35-7.45) ABG pCO2 20 L (35-45) mmHg ABG pO2 335 H (83-108) mmHg ABG HCO3 5 L* (21-25) mmol/L ABG Total CO2 6 L (19-24) mmol/L ABG O2 Saturation 99.0 H (94-97) % VBG pH (7.31-7.41) VBG pCO2 (37-51) mmHg VBG HCO3 (24-28) mmol/L Sodium 135 L (137-145) mmol/L Potassium 6.1 H* (3.5-5.1) mmol/L Carbon Dioxide 8 L* (22-30) mmol/L BUN 39 H (7-17) mg/dL Creatinine 2.87 H (0.52-1.04) mg/dL Glucose 142 H (74-99) mg/dL POC Glucose (mg/dL) 230 H (75-99) mg/dL Plasma Lactic Acid Young (0.7-2.0) mmol/L Calcium 8.3 L (8.4-10.2) mg/dL Phosphorus (2.5-4.5) mg/dL Magnesium (1.6-2.3) mg/dL Ferritin (10.0-291.0) ng/mL Total Bilirubin 1.6 H (0.2-1.3) mg/dL AST >41223 H (14-36) U/L ALT 6714 H (4-34) U/L Alkaline Phosphatase 494 H (38-126) U/L Ammonia (<30) umol/L Lactate Dehydrogenase (313-618) U/L Creatine Kinase (30-135) U/L Troponin I (0.000-0.034) ng/mL C-Reactive Protein (<10.0) mg/L Total Protein 6.0 L (6.3-8.2) g/dL Albumin 2.3 L (3.5-5.0) g/dL Procalcitonin (0.02-0.09) ng/mL TSH (0.465-4.680) mIU/L Urine Appearance (Clear) Urine Protein (Negative) Urine Blood (Negative) Ur Leukocyte Esterase (Negative) Urine RBC (0-5) /hpf Urine WBC (0-5) /hpf Urine WBC Clumps (None) /hpf Calcium Oxalate Crystal (None) /hpf Urine Bacteria (None) /hpf Hyaline Casts (0-2) /lpf Urine Mucus (None) /hpf Urine Yeast (Budding) (None) /hpf Stool Occult Blood (Negative) 11/12/19 11/12/19 11/12/19 Range/Units 10:40 12:22 15:00 WBC (3.8-10.6) k/uL MCHC (31.0-37.0) g/dL RDW (11.5-15.5) % Neutrophils # (Manual) (1.3-7.7) k/uL Monocytes # (Manual) (0-1.0) k/uL Metamyelocytes # (Man) (0) k/uL Nucleated RBCs (0-0) /100 WBC PT (9.0-12.0) sec INR (<1.2) APTT (22.0-30.0) sec ABG pH (7.35-7.45) ABG pCO2 (35-45) mmHg ABG pO2 (83-108) mmHg ABG HCO3 (21-25) mmol/L ABG Total CO2 (19-24) mmol/L ABG O2 Saturation (94-97) % VBG pH (7.31-7.41) VBG pCO2 (37-51) mmHg VBG HCO3 (24-28) mmol/L Sodium (137-145) mmol/L Potassium (3.5-5.1) mmol/L Carbon Dioxide (22-30) mmol/L BUN (7-17) mg/dL Creatinine (0.52-1.04) mg/dL Glucose (74-99) mg/dL POC Glucose (mg/dL) 174 H (75-99) mg/dL Plasma Lactic Acid Young 18.9 H* 16.4 H* (0.7-2.0) mmol/L Calcium (8.4-10.2) mg/dL Phosphorus (2.5-4.5) mg/dL Magnesium (1.6-2.3) mg/dL Ferritin (10.0-291.0) ng/mL Total Bilirubin (0.2-1.3) mg/dL AST (14-36) U/L ALT (4-34) U/L Alkaline Phosphatase (38-126) U/L Ammonia 236 H (<30) umol/L Lactate Dehydrogenase (313-618) U/L Creatine Kinase (30-135) U/L Troponin I (0.000-0.034) ng/mL C-Reactive Protein (<10.0) mg/L Total Protein (6.3-8.2) g/dL Albumin (3.5-5.0) g/dL Procalcitonin (0.02-0.09) ng/mL TSH (0.465-4.680) mIU/L Urine Appearance (Clear) Urine Protein (Negative) Urine Blood (Negative) Ur Leukocyte Esterase (Negative) Urine RBC (0-5) /hpf Urine WBC (0-5) /hpf Urine WBC Clumps (None) /hpf Calcium Oxalate Crystal (None) /hpf Urine Bacteria (None) /hpf Hyaline Casts (0-2) /lpf Urine Mucus (None) /hpf Urine Yeast (Budding) (None) /hpf Stool Occult Blood (Negative) 11/12/19 11/12/19 11/12/19 Range/Units 16:32 18:08 18:29 WBC (3.8-10.6) k/uL MCHC (31.0-37.0) g/dL RDW (11.5-15.5) % Neutrophils # (Manual) (1.3-7.7) k/uL Monocytes # (Manual) (0-1.0) k/uL Metamyelocytes # (Man) (0) k/uL Nucleated RBCs (0-0) /100 WBC PT (9.0-12.0) sec INR (<1.2) APTT (22.0-30.0) sec ABG pH 7.10 L* (7.35-7.45) ABG pCO2 29 L (35-45) mmHg ABG pO2 (83-108) mmHg ABG HCO3 9 L* (21-25) mmol/L ABG Total CO2 10 L (19-24) mmol/L ABG O2 Saturation (94-97) % VBG pH (7.31-7.41) VBG pCO2 (37-51) mmHg VBG HCO3 (24-28) mmol/L Sodium (137-145) mmol/L Potassium 6.1 H* (3.5-5.1) mmol/L Carbon Dioxide <5 L* (22-30) mmol/L BUN 20 H (7-17) mg/dL Creatinine 2.53 H (0.52-1.04) mg/dL Glucose 116 H (74-99) mg/dL POC Glucose (mg/dL) (75-99) mg/dL Plasma Lactic Acid Young >24.0 H* (0.7-2.0) mmol/L Calcium 7.3 L (8.4-10.2) mg/dL Phosphorus (2.5-4.5) mg/dL Magnesium (1.6-2.3) mg/dL Ferritin (10.0-291.0) ng/mL Total Bilirubin 1.7 H (0.2-1.3) mg/dL AST >45291 H (14-36) U/L ALT 6960 H (4-34) U/L Alkaline Phosphatase 554 H (38-126) U/L Ammonia (<30) umol/L Lactate Dehydrogenase (313-618) U/L Creatine Kinase (30-135) U/L Troponin I (0.000-0.034) ng/mL C-Reactive Protein (<10.0) mg/L Total Protein 5.3 L (6.3-8.2) g/dL Albumin 2.0 L (3.5-5.0) g/dL Procalcitonin (0.02-0.09) ng/mL TSH (0.465-4.680) mIU/L Urine Appearance (Clear) Urine Protein (Negative) Urine Blood (Negative) Ur Leukocyte Esterase (Negative) Urine RBC (0-5) /hpf Urine WBC (0-5) /hpf Urine WBC Clumps (None) /hpf Calcium Oxalate Crystal (None) /hpf Urine Bacteria (None) /hpf Hyaline Casts (0-2) /lpf Urine Mucus (None) /hpf Urine Yeast (Budding) (None) /hpf Stool Occult Blood (Negative) 11/12/19 11/12/19 Range/Units 19:15 19:16 WBC (3.8-10.6) k/uL MCHC (31.0-37.0) g/dL RDW (11.5-15.5) % Neutrophils # (Manual) (1.3-7.7) k/uL Monocytes # (Manual) (0-1.0) k/uL Metamyelocytes # (Man) (0) k/uL Nucleated RBCs (0-0) /100 WBC PT (9.0-12.0) sec INR (<1.2) APTT (22.0-30.0) sec ABG pH 7.12 L* (7.35-7.45) ABG pCO2 23 L (35-45) mmHg ABG pO2 120 H (83-108) mmHg ABG HCO3 8 L* (21-25) mmol/L ABG Total CO2 8 L (19-24) mmol/L ABG O2 Saturation 97.7 H (94-97) % VBG pH (7.31-7.41) VBG pCO2 (37-51) mmHg VBG HCO3 (24-28) mmol/L Sodium (137-145) mmol/L Potassium (3.5-5.1) mmol/L Carbon Dioxide (22-30) mmol/L BUN (7-17) mg/dL Creatinine (0.52-1.04) mg/dL Glucose (74-99) mg/dL POC Glucose (mg/dL) 120 H (75-99) mg/dL Plasma Lactic Acid Young (0.7-2.0) mmol/L Calcium (8.4-10.2) mg/dL Phosphorus (2.5-4.5) mg/dL Magnesium (1.6-2.3) mg/dL Ferritin (10.0-291.0) ng/mL Total Bilirubin (0.2-1.3) mg/dL AST (14-36) U/L ALT (4-34) U/L Alkaline Phosphatase (38-126) U/L Ammonia (<30) umol/L Lactate Dehydrogenase (313-618) U/L Creatine Kinase (30-135) U/L Troponin I (0.000-0.034) ng/mL C-Reactive Protein (<10.0) mg/L Total Protein (6.3-8.2) g/dL Albumin (3.5-5.0) g/dL Procalcitonin (0.02-0.09) ng/mL TSH (0.465-4.680) mIU/L Urine Appearance (Clear) Urine Protein (Negative) Urine Blood (Negative) Ur Leukocyte Esterase (Negative) Urine RBC (0-5) /hpf Urine WBC (0-5) /hpf Urine WBC Clumps (None) /hpf Calcium Oxalate Crystal (None) /hpf Urine Bacteria (None) /hpf Hyaline Casts (0-2) /lpf Urine Mucus (None) /hpf Urine Yeast (Budding) (None) /hpf Stool Occult Blood (Negative) Microbiology - Last 24 Hours (Table) 11/12/19 03:18 Blood Culture Gram Stain - Preliminary Blood 11/12/19 03:18 Blood Culture - Final Blood 11/12/19 03:38 Urine Culture - Preliminary Urine,Voided Assessment and Plan Assessment: 1-patient presented to hospital with sepsis in this patient did have a fever tachycardia and elevated white count source could be more likely urinary tract infection with patient follow unresponsive underlying aspiration pneumonitis panel entirely excluded 2-patient with gram-positive bacteremia more likely related to either urinary tract infection or aspiration pneumonitis 3-daily insufficiency and high risk of nephrotoxicity 4-stage II-left total pressure ulcer no cellulitis (1) Pressure ulcer of sacral region, stage 2 Current Visit: Yes Status: Acute Code(s): L89.152 - PRESSURE ULCER OF SACRAL REGION, STAGE 2 SNOMED Code(s): 696369084 (2) Sepsis Current Visit: Yes Status: Acute Code(s): A41.9 - SEPSIS, UNSPECIFIED ORGANISM SNOMED Code(s): 16603494 (3) Urinary tract infection Current Visit: No Status: Acute Code(s): N39.0 - URINARY TRACT INFECTION, SITE NOT SPECIFIED SNOMED Code(s): 54585444 Plan: 1- we will try to obtain sputum for Gram stain and culture 2-Vancomycin pharmacy to dose target trough of 15 while watching his kidney function and Vanco trough closely 3-Zosyn 3.67 mg every 12 hours 4-blood cultures repeated to document clearance of bacteremia We will follow on clinical condition and cultures to further adjust medication if needed Thank you for this consultation will follow this patient with you Time with Patient: Greater than 30
[2019-11-13] MEDS ORDERED: LEVOTHYROXINE 100 MCG TAB PO SCH (06:00)
[2019-11-13] MEDS ORDERED: VANCOMYCIN 1,750 MG in SODIUM CHLORIDE 0.9% 500 ML 500 ML IVPB ONE (08:00)
--- NOTE | 2019-11-13 16:54 | P.DS ---
Providers Date of admission: 11/12/19 04:31 Expected date of discharge: 11/12/19 Attending physician: Lam Tovar Consults: 11/12/19 04:31 Consult Physician Routine Consulting Provider: Kameron Reyes Consult Reason/Comments: arf Do you want consulting provider notified?: Yes Consult Physician Routine Consulting Provider: Marcial Reyes Consult Reason/Comments: fever Do you want consulting provider notified?: Yes Consult Physician Urgent Consulting Provider: Janice Thompson Consult Reason/Comments: icu Do you want consulting provider notified?: Yes Primary care physician: Kindra Plata Hospital Course: Hospital course 74-year-old female one of Dr. Plata's patient from [facility] on the [place] who was in the hospital 2 weeks ago for sepsis and urinary tract infection who had acute kidney injury and was on hemodialysis at the time. Patient is known to have fistula graft in the left forearm was dialyzed for 3 days symptoms become much better patient ended up in the discharged to [facility] on antibiotics and discussion to continue dialysis was up to nephrology at the time. Patient found to be unresponsive and [facility] early morning babysitter today brought to demurs department via EMS found to have potassium of 6.6 with creatinine of 2.8 her blood CAD showed acute metabolic acidosis patient was in acute respiratory failure found to be in A. fib with RVR was started on Cardizem drip her troponin were quite bit elevated at the time. Patient was intubated and placed on mechanical ventilation her blood pressure was very low was started on Levophed and transferred to the intensive care unit. While in ICU, required hemodynamic monitoring, mechanical ventilation, seen by Dr. Thompson, Dr. Reyes, Dr. Reyes from services of pulmonary, infectious disease and nephrology, for septic shock hypotension, cardiac arrhythmias with atrial fibrillation RVR patient had acute deterioration, underlying sick sinus syndrome, acute renal failure, CHF exacerbation, uremia, acute on chronic kidney failure, required multiple critical care treatments, however , patient had a cardiac event patient had an A- team for cold blue activated the 2112, patient was undergoing CPR, she received CPR as well as shock treatment for V. fib, 200 J, amiodarone infusion, multiple IV pressors, sodium bicarb infusion, I was informed by critical care nurse, regarding this event, and and the ICU as well as the intensive these have communicated this with the son, I also discussed this with the son, for which they have requested no further cardiac intervention, if the patient did to reach cardiac-sheridan, no further CPR would be done, patient remains on aggressive medical treatment, unfortunately she from sepsis, possible aspiration pneumonia, against UTI, finalized urine culture currently pending on dictation, patient has coag-negative staph on blood culture, has multi-organ failure with poor recovery secondary to pre-existing comorbid conditions including suspected CAD with CABG,. CK D2 to 3, requiring dialysis for acute renal failure multiple episodes, atrial fibrillation, diabetes mellitus with complications, CHF, sciatica with suspected spinal site stenosis, transaminitis fatty liver prior history of DVT, and metabolic encephalopathy, requiring permanent pacemaker , and presence of decubitus ulcer stage II pressure ulcer no cellulitis, multiple chemical abnormalities Principal cause of , sepsis with septic shock, primary source unknown, suspect aspiration pneumonia against UTI CHF exacerbation, region check A. fib with RVR secondary cause of , diabetes mellitus with multiple complications, CAD with prior CABG Final diagnosis Assessment: 1 acute respiratory failure: Most likely secondary to sepsis, acute MA, severe septic shock 2 most likely UTI against aspiration pneumonia blood culture was done start patient on IV antibiotic consult infectious disease, consult critical care continue current management for now. 3 acute kidney injury with chronic kidney disease most likely from ATN and hypotension along with sepsis at the time patient does not need dialysis yet nep hrology consultation is on. For hyperkalemia: Secondary to acute kidney injury, continue hydration for now and sodium bicarbonate IV along with D50 with IV insulin. 5 elevated troponin with possible non-ST MA: Consult cardiology echocardiogram keep watching troponin in the next 24 hours. 6 metabolic acidosis: Secondary to acute kidney injury and acute kidney failure continue hydration and treat kidney failure at this time. 7 A. fib with RVR: Patient was started on Cardizem drip continue medication try to keep pulse below 100 bpm. 8 chronic pain syndrome: Patient was on narcotic before has been off at this point. 9 known coronary artery disease post triple bypass surgery back in 2000, still seen cardiology. 10 moderate pulmonary hypertension and moderate pulmonic valve regurgitation: On medical management at this point. 12 type 2 diabetes uncontrolled with complications with hypo-/hyperglycemia, will continue patient on insulin per sliding scales protocol for now. 13 hypertension: More hypertension at this point will continue vasopressor drip. 14 hypothyroidism: Has been on levothyroxine 100 g daily her TSH is much higher her free T4 from last time was quite bit high medication were adjusted. 15 chronic depression: Has been on Cymbalta 30 mg twice a day. 16 chronic back pain and severe neuropathy has been on Lyrica and baclofen along with tramadol dose was reduced before she left the hospital last time. 17 GI prophylaxis: Patient will be on pantoprazole IV. 18 DVT prophylaxis: Patient will be on heparin prophylaxis. CODE STATUS: Full code. Patient 11/0511/06/2019 after multiple attempts for cardiopulmonary resuscitation efforts were futile, son declined further cpr/ code Patient Condition at Discharge: Critical Plan - Discharge Summary New Discharge Prescriptions: No Action Insulin NPL/Insulin Lispro [humaLOG MIX 75-25 VIAL] 10 unit SQ TID-W/MEALS Aspirin EC [Ecotrin Low Dose] 81 mg PO DAILY@0900 Nitroglycerin Sl Tabs [Nitrostat] 0.4 mg SUBLINGUAL Q5M PRN #50 tab PRN Reason: Chest Pain Pantoprazole Sodium [Protonix] 40 mg PO BID@0900,2100 Baclofen 10 mg PO BID PRN #10 PRN Reason: Spasms Acetaminophen Tab [Tylenol] 650 mg PO Q4H PRN PRN Reason: Pain Ferrous Sulfate [Iron] 325 mg PO TID@0900,1300,2100 Metoprolol Tartrate [Lopressor] 25 mg PO BID@0900,2100 DULoxetine HCL [Cymbalta] 30 mg PO BID@0900,2100 Atorvastatin [Lipitor] 80 mg PO HS@2100 Isosorbide Mononitrate ER [Imdur] 30 mg PO DAILY@0900 Ipratropium-Albuterol Nebulize [Duoneb 0.5 mg-3 mg/3 ml Soln] 3 ml INHALATION RT-TID #0 ml Bumetanide [BUMEX] 2 mg PO DAILY #0 traMADol HCL [Ultram] 50 mg PO BID PRN #6 tab PRN Reason: Pain Pregabalin [Lyrica] 75 mg PO HS@2100 #3 cap Collagenase [Santyl] 1 applic TOPICAL DAILY PRN PRN Reason: LEFT BUTTOCK Collagenase [Santyl] 1 applic TOPICAL HS Lactose-Reduced Food [Ensure Plus] 120 ml PO TID@1000,1400,2000 Menthol [Biofreeze] 1 applic TOPICAL BID predniSONE See Taper PO DAILY Levothyroxine Sodium [Synthroid] 100 mcg PO DAILY@06 Lidocaine 5% Patch [Lidoderm 5% Patch] 1 patch TOPICAL DAILY@06 Discharge Medication List Insulin NPL/Insulin Lispro [humaLOG MIX 75-25 VIAL] 10 unit SQ TID-W/MEALS 12/03/16 [History] Aspirin EC [Ecotrin Low Dose] 81 mg PO DAILY@0909/09/18 [History] Nitroglycerin Sl Tabs [Nitrostat] 0.4 mg SUBLINGUAL Q5M PRN #50 tab 01/27/19 [Rx] Pantoprazole Sodium [Protonix] 40 mg PO BID@0900,209905/08/19 [History] Baclofen 10 mg PO BID PRN #10 09/05/19 [Rx] Acetaminophen Tab [Tylenol] 650 mg PO Q4H PRN 10/25/19 [History] Atorvastatin [Lipitor] 80 mg PO HS@209910/25/19 [History] DULoxetine HCL [Cymbalta] 30 mg PO BID@0900,209910/25/19 [History] Ferrous Sulfate [Iron] 325 mg PO TID@0900,1300,209910/25/19 [History] Isosorbide Mononitrate ER [Imdur] 30 mg PO DAILY@89910/25/19 [History] Metoprolol Tartrate [Lopressor] 25 mg PO BID@0900,209910/25/19 [History] Bumetanide [BUMEX] 2 mg PO DAILY #0 10/28/19 [Rx] Ipratropium-Albuterol Nebulize [Duoneb 0.5 mg-3 mg/3 ml Soln] 3 ml INHALATION RT-TID #0 ml 10/28/19 [Rx] Pregabalin [Lyrica] 75 mg PO HS@2099 #3 cap 10/28/19 [Rx] traMADol HCL [Ultram] 50 mg PO BID PRN #6 tab 10/28/19 [Rx] Collagenase [Santyl] 1 applic TOPICAL DAILY PRN 11/12/19 [History] Collagenase [Santyl] 1 applic TOPICAL HS 11/12/19 [History] Lactose-Reduced Food [Ensure Plus] 120 ml PO TID@1000,1400,199911/12/19 [History] Levothyroxine Sodium [Synthroid] 100 mcg PO DAILY@59911/12/19 [History] Lidocaine 5% Patch [Lidoderm 5% Patch] 1 patch TOPICAL DAILY@59911/12/19 [History] Menthol [Biofreeze] 1 applic TOPICAL BID 11/12/19 [History] predniSONE See Taper PO DAILY 11/12/19 [History] Follow up Appointment(s)/Referral(s): Kindra Plata MD [Primary Care Provider] - 1-2 days Discharge Disposition: - Preliminary Cause of Preliminary Cause of : septic shock, aspiration pneumonia/UTI afib rvr CAD, multiorgan failure CHF
--- NOTE | 2019-11-16 07:14 | CDI ---
Documentation Clarification Form Date: 11/16/2019 From: Pepe Sun Phone: If you have a question about this query, please contact Penelope Henley, Technical Training Specialist at [phone] between 8am and 5pm. Admit Date: 11/12/2019 Discharge Date: 11/12/2019 Patient Name: Tsering Chan I Visit Number: [id number] ATTENTION: The Clinical Documentation Specialists (CDI) and [facility] Coding Staff appreciate your assistance in clarifying documentation. Please respond to the clarification below the line at the bottom and electronically sign. The CDI & [facility] Coding staff will review the response and follow-up if needed. Please note: Queries are made part of the Legal Health Record. If you have any questions, please contact the author of this message via ITS. Dear Dr Sherlyn Arguelles., CHF is documented in the ED as "CHF exacerbation" and in past medical history. History/Risk Factors:Atrial Fibrillation, Coronary Artery Disease (CAD), Heart Failure, Diabetes Mellitus, Deep Vein Thrombosis (DVT), Hyperlipidemia, VS/Pulse OX: 11/12/19 09:15 79 25 H 96/50 96 BNP: 8400 Chest X Ray:Moderate cardiomegaly.There is evidence for some mild congestive heart failure similar to old exam. Treatment: She was given Lasix of sodium bicarb is 20 mEq each and she was started on a bicarb infusion with 150 mEq of sodium bicarbonate running at 150 mL an hour. In your professional opinion, can you please clarify the acuity and type of CHF if known? Systolic Heart Failure: Acute Chronic Acute on Chronic Diastolic Heart Failure: Acute Chronic Acute on Chronic Systolic & Diastolic Heart Failure: Acute Chronic Acute on Chronic Heart Failure Unable to Determine Other, please specify acute on chronic diastolic chf with acute systolic chf MTDD
--- NOTE | 2019-11-30 23:04 | CDI ---
Documentation Clarification Form Date: 12/01/2019 From: Pepe Sun Phone: If you have a question about this query, please contact Penelope Henley, Forcer Maker at [phone] between 8am and 5pm. Admit Date: 11/12/2019 Discharge Date: 11/12/2019 Patient Name: Tsering Chan I Visit Number: [id number] ATTENTION: The Clinical Documentation Specialists (CDI) and [facility] Coding Staff appreciate your assistance in clarifying documentation. Please respond to the clarification below the line at the bottom and electronically sign. The CDI & [facility] Coding staff will review the response and follow-up if needed. Please note: Queries are made part of the Legal Health Record. If you have any questions, please contact the author of this message via ITS. Dear Dr Sherlyn Arguelles., UTI was documented in the DS as sepsis with septic shock, primary source unknown, suspect aspiration pneumonia against UTI CHF exacerbation, region check A. fib with RVR History/Risk Factors: She has a padron, Recurrent UTI's Vital Signs:Temperature 100.8 F H Pulse Rate 153 H 99 104 H Pulse Rate [ Pulse Oximetery Respiratory 26 H 26 H 27 H Rate Blood Pressure 88/38 118/65 145/66 Urine Culture:Ruchi glabrata Treatment : IV antibiotics Antibiotics :Zosyn and vancomycin Principal cause of , sepsis with septic shock, primary source unknown, suspect aspiration pneumonia against UTI CHF exacerbation, region check A. fib with RVR secondary cause of , diabetes mellitus with multiple complications, CAD with prior CABG Please document the condition that these clinical indicators signify, cause if known: UTI -If due to catheter, device or implant, please document Other, please specify Unable to determine & Sepsis Source Aspiration Pneumonia UTI Both(Aspiration Pneumonia and UTI) Other both xxx AIDED
--- NOTE | 2019-12-13 22:55 | CDI ---
Documentation Clarification Form Date: 12/14/2019 From: Pepe Sun Phone: If you have a question about this query, please contact Penelope Henley, Medical Education Specialist at [phone] between 8am and 5pm. Admit Date: 11/12/2019 Discharge Date: 11/12/2019 Patient Name: Tsering Chan I Visit Number: [id number] ATTENTION: The Clinical Documentation Specialists (CDI) and [facility] Coding Staff appreciate your assistance in clarifying documentation.Please respond to the clarification below the line at the bottom and electronically sign.The CDI [facility] Coding staff will review the response and follow-up if needed.Please note: Queries are made part of the Legal Health Record.If you have any questions, please contact the author of this message via ITS. Dear Dr Sherlyn rAguelles. UTI was documented in the DS as sepsis with septic shock, primary source unknown, suspect aspiration pneumonia against UTI CHF exacerbation, region check A. fib with RVR History/Risk Factors: She has a padron, Recurrent UTI's Vital Signs:Temperature 100.8 F H Pulse Rate 153 H 99 104 H Pulse Rate [ Pulse Oximetery Respiratory 26 H 26 H 27 H Rate Blood Pressure 88/38 118/65 145/66 Urine Culture:Ruchi glabrata Treatment : IV antibiotics Antibiotics :Zosyn and vancomycin Principal cause of , sepsis with septic shock, primary source unknown, suspect aspiration pneumonia against UTI CHF exacerbation, region check A. fib with RVR secondary cause of , diabetes mellitus with multiple complications, CAD with prior CABG Please document the condition that these clinical indicators signify, cause if known: UTI -If due to catheter, device or implant, please document Other, please specify Unable to determine not CAUTI MTDD
== END 2019-11-12 22:04 | disposition expired | DRG 871 ==
LOC: EC 02:29 → 2SICU 04:31
PROVIDERS: ADMIT Internal Medicine Geriatric Medicine; ATTEND Internal Medicine Geriatric Medicine
PROC: 5A1935Z Respiratory Ventilation, Less than 24 Consecutive Hours (ICD-10-PCS; principal; 2019-11-12)
PROC: 0BH17EZ Insertion of Endotracheal Airway into Trachea, Via Natural or Artificial Opening (ICD-10-PCS; principal; 2019-11-12)
PROC: 04HY32Z Insertion of Monitoring Device into Lower Artery, Percutaneous Approach (ICD-10-PCS; 2019-11-12)
PROC: 4A133B1 Monitoring of Arterial Pressure, Peripheral, Percutaneous Approach (ICD-10-PCS; 2019-11-12)
PROC: 4A133J1 Monitoring of Arterial Pulse, Peripheral, Percutaneous Approach (ICD-10-PCS; 2019-11-12)
PROC: 5A12012 Performance of Cardiac Output, Single, Manual (ICD-10-PCS; 2019-11-12)
PROC: 3E033XZ Introduction of Vasopressor into Peripheral Vein, Percutaneous Approach (ICD-10-PCS; 2019-11-12)
DX: A41.89 Other specified sepsis (principal); R65.21 Severe sepsis with septic shock; N17.0 Acute kidney failure with tubular necrosis; J96.00 Acute respiratory failure, unspecified whether with hypoxia or hypercapnia; I21.4 Non-ST elevation (NSTEMI) myocardial infarction; K72.00 Acute and subacute hepatic failure without coma; J69.0 Pneumonitis due to inhalation of food and vomit; I50.43 Acute on chronic combined systolic (congestive) and diastolic (congestive) heart failure; I13.0 Hypertensive heart and chronic kidney disease with heart failure and stage 1 through stage 4 chronic kidney disease, or unspecified chronic kidney disease; F05 Delirium due to known physiological condition; E87.2 Acidosis; N39.0 Urinary tract infection, site not specified; I48.20 Chronic atrial fibrillation, unspecified; I25.10 Atherosclerotic heart disease of native coronary artery without angina pectoris; I27.20 Pulmonary hypertension, unspecified; M32.9 Systemic lupus erythematosus, unspecified; E11.42 Type 2 diabetes mellitus with diabetic polyneuropathy; E11.65 Type 2 diabetes mellitus with hyperglycemia; L89.322 Pressure ulcer of left buttock, stage 2; L89.152 Pressure ulcer of sacral region, stage 2; I49.01 Ventricular fibrillation; E11.649 Type 2 diabetes mellitus with hypoglycemia without coma; Z20.828 Contact with and (suspected) exposure to other viral communicable diseases; Z79.4 Long term (current) use of insulin; E89.0 Postprocedural hypothyroidism; F32.9 Major depressive disorder, single episode, unspecified; I49.5 Sick sinus syndrome; E87.5 Hyperkalemia; G89.4 Chronic pain syndrome; I37.1 Nonrheumatic pulmonary valve insufficiency; E83.39 Other disorders of phosphorus metabolism; M54.30 Sciatica, unspecified side; N18.3 Chronic kidney disease, stage 3 (moderate); E78.5 Hyperlipidemia, unspecified; E11.22 Type 2 diabetes mellitus with diabetic chronic kidney disease; E66.9 Obesity, unspecified; Z68.35 Body mass index [BMI] 35.0-35.9, adult; Z79.82 Long term (current) use of aspirin; Z79.899 Other long term (current) drug therapy; Z86.718 Personal history of other venous thrombosis and embolism; Z90.49 Acquired absence of other specified parts of digestive tract; Z98.890 Other specified postprocedural states; Z95.1 Presence of aortocoronary bypass graft; Z98.42 Cataract extraction status, left eye; Z98.41 Cataract extraction status, right eye; Z95.0 Presence of cardiac pacemaker; Z86.19 Personal history of other infectious and parasitic diseases; Z87.891 Personal history of nicotine dependence; Z80.42 Family history of malignant neoplasm of prostate; Z82.49 Family history of ischemic heart disease and other diseases of the circulatory system; Z83.3 Family history of diabetes mellitus; Z82.69 Family history of other diseases of the musculoskeletal system and connective tissue; Z80.8 Family history of malignant neoplasm of other organs or systems; Z80.0 Family history of malignant neoplasm of digestive organs; Z87.440 Personal history of urinary (tract) infections; Z90.89 Acquired absence of other organs
CPT/HCPCS: 31500; 36415; 36600; 71045; 80053; 80165; 81001; 82140; 82272; 82550; 82728; 82803; 82805; 83605; 83615; 83735; 83880; 84100; 84145; 84443; 84484; 85025; 85610; 85730; 86140; 87040; 87086; 90935; 93005; 94002; 94640; 96365; 96366; 96368; 96375; 96376; 99291; 99292